=== PATIENT | female | born 1945 | race Hispanic/Latino ===

== ENCOUNTER 2016-10-12 06:15 | Inpatient (IN) | payer MEDICARE, MEDICAID ==
[2016-10-12 06:22] VITALS: BMI 25.8
--- NOTE | 2016-10-12 06:37 | ED PDOC ---
Arrival/HPI - General Chief Complaint: Shortness Of Breath Time Seen by Provider: 10/12/16 06:29 Historian: Patient - History of Present Illness Narrative History of Present Illness (Text): 10/12/16 06:36 Mallorie Turner is a 71 year old female former smoker, whose past medical history includes colon cancer, CHF, CAD with multiplestents, triple bypass surgery, NIDDM, hypertension, atrial fibrillation, and hyperlipidemia, who presents to the ED complaining of shortness of breath since last night. Patient states shortness of breath progressively worsened throughout the night and denies any relief with inhaler or home nebulizer treatments. Patient also reports associated chest tightness. Patient denies any fever, chills, nausea, vomiting, diarrhea, urinary symptoms, back pain, neck pain, headache, dizziness , or any other complaints. Patient regularly takes Warfarin and Digoxin. Time/Duration: Other (tonight) Symptom Onset: Gradual Symptom Course: Worsening Quality: Tightness Activities at Onset: Rest, Light Modifying Factors (Text): No relief with inhaler/home nebulizer treatments Context: Home Past Medical History - Provider Review Nursing Documentation Reviewed: Yes - Infectious Disease Hx of Infectious Diseases: None - Cardiac Hx Cardiac Disorders: Yes (triple bypass 2002) Hx Hypertension: Yes - Pulmonary Hx Asthma: Yes Hx Chronic Obstructive Pulmonary Disease (COPD): Yes - Neurological Hx Neurological Disorder: No - HEENT Hx HEENT Disorder: Yes (eyeglassees) Hx Blind: No Other/Comment: ORBITAL TUMOR TO RIGHT EYE - Renal Hx Renal Disorder: Yes (RENAL CYST) - Endocrine/Metabolic Hx Diabetes Mellitus Type 2: Yes - Hematological/Oncological Hx Blood Disorders: No - Integumentary Hx Dermatological Disorder: No - Musculoskeletal/Rheumatological Hx Musculoskeletal Disorders: No Hx Falls: Yes - Gastrointestinal Hx Gastrointestinal Disorders: Yes (VENTRAL HERNIA,BOWEL OBSTRUCTION,PROLAPSE OF ILEOSTOMY) Hx Ileostomy: Yes (reversal 2009) - Genitourinary/Gynecological Hx Genitourinary Disorders: No - Psychiatric Hx Psychophysiologic Disorder: Yes Hx Depression: Yes Hx Substance Use: No Other/Comment: Insomnia - Surgical History Other/Comment: Ileostomy with reversal. Open heart surgery - Anesthesia Hx Anesthesia: Yes Hx Anesthesia Reactions: No - Suicidal Assessment Feels Threatened In Home Enviroment: No Family/Social History - Physician Review Nursing Documentation Reviewed: Yes Family/Social History: No Known Family HX Smoking Status: Former Smoker Hx Alcohol Use: No Hx Substance Use: No Allergies/Home Meds Allergies/Adverse Reactions: Allergies clopidogrel bisulfate [From Plavix] Allergy (Verified 08/26/16 09:29) RASH Home Medications: Home Meds Medication Instructions Recorded Confirmed GlipiZIDE [Glipizide] 10 mg PO DAILY 03/22/14 10/12/16 Nortriptyline HCl [Nortriptyline] 10 mg PO TID 03/22/14 10/12/16 Warfarin [Coumadin] 4 mg PO DAILY 03/22/14 10/12/16 Aspirin [Ecotrin] 81 mg PO DAILY 10/20/15 10/12/16 Digoxin [Lanoxin] 0.25 mg PO DAILY 10/20/15 10/12/16 Diltiazem HCl [Cardizem Cd] 180 mg PO DAILY 10/20/15 10/12/16 Nitroglycerin [Nitrostat] 0.4 mg SL PRN PRN 10/20/15 10/12/16 traMADol [Ultram] 50 mg PO DAILY PRN 10/20/15 10/12/16 Atorvastatin [Lipitor] 20 mg PO DAILY 08/21/16 10/12/16 Bumetanide [Bumex] 0.5 mg PO DAILY 08/21/16 10/12/16 Carvedilol [Coreg] 12.5 mg PO BID 08/21/16 10/12/16 Levocetirizine Dihydrochloride 5 mg PO DAILY 08/21/16 10/12/16 [Xyzal] Linagliptin [Tradjenta] 5 mg PO DAILY 08/21/16 10/12/16 Lisinopril [Zestril] 20 mg PO DAILY 08/21/16 10/12/16 Sertraline [Zoloft] 50 mg PO HS 08/21/16 10/12/16 Umeclidinium Crooks [Incruse 62.5 mcg IH DAILY 08/21/16 10/12/16 Ellipta] Prasugrel [Effient] 10 mg PO DAILY 08/28/16 10/12/16 Biotin [Biotin] 1 tab PO DAILY 10/12/16 10/12/16 Fluticasone/Salmeterol [Advair 1 puff IH BID 10/12/16 10/12/16 250-50 Diskus] Insulin Detemir [Levemir] 12 units SQ DAILY 10/12/16 10/12/16 Review of Systems - Physician Review All systems were reviewed & negative as marked: Yes - Review of Systems Constitutional: Normal. absent: Fevers Eyes: Normal ENT: Normal Respiratory: SOB. absent: Cough Cardiovascular: Chest Pain Gastrointestinal: Normal. absent: Abdominal Pain, Diarrhea, Nausea, Vomiting Genitourinary Female: Normal. absent: Dysuria, Frequency, Hematuria, Urine Output Changes Musculoskeletal: Normal. absent: Back Pain, Neck Pain Skin: Normal. absent: Rash Neurological: Normal. absent: Headache, Dizziness Endocrine: Normal Hemo/Lymphatic: Normal Psychiatric: Normal Physical Exam Vital Signs Reviewed: Yes Vital Signs Temp Pulse Resp BP Pulse Ox 10/12/16 06:25 97.7 F 79 20 129/69 95 Temperature: Afebrile Blood Pressure: Normal Pulse: Regular Respiratory Rate: Normal Appearance: Positive for: Well-Appearing, Non-Toxic, Comfortable Pain Distress: None Mental Status: Positive for: Alert and Oriented X 3 - Systems Exam Head: Present: Atraumatic, Normocephalic Pupils: Present: PERRL Extroacular Muscles: Present: EOMI Conjunctiva: Present: Normal Mouth: Present: Moist Mucous Membranes Neck: Present: Normal Range of Motion Respiratory/Chest: Present: Rhonchi (Few scattered rhonchi). No: Respiratory Distress, Accessory Muscle Use Cardiovascular: Present: Regular Rate and Rhythm, Normal S1, S2. No: Murmurs Abdomen: Present: Normal Bowel Sounds. No: Tenderness, Distention, Peritoneal Signs Back: Present: Normal Inspection Upper Extremity: Present: Normal Inspection. No: Cyanosis, Edema Lower Extremity: Present: Normal Inspection. No: Edema Neurological: Present: GCS=15, CN II-XII Intact, Speech Normal Skin: Present: Warm, Dry, Normal Color. No: Rashes Psychiatric: Present: Alert, Oriented x 3, Normal Insight, Normal Concentration Medical Decision Making ED Course and Treatment: 10/12/16 06:36 Impression: 71 year old female complaining of worsening shortness of breath and chest tightness Differential Diagnosis include but are not limited to: CHF vs. ACS vs. pneumonia vs. COPD Plan: -- EKG -- Chest X-ray -- Labs, cardiac enzymes, BNP, Digoxin -- Reassess and disposition Prior Visits: Notes and results from previous visits were reviewed. Progress Notes: Reviewed EKG, sinus rhythm at 123 bpm. 1st degree AV block. Frequent PVCs. LBBB. Non-specific ST/T wave changes. Unchanged from previous EKG on 08/26/2016. - RAD Interpretation Radiology Orders: 10/12/16 06:41 CHEST PORTABLE [RAD] Stat - Transfer of Care Patient signed out to Dr:: Kortney Pending Labs:: Labs/xray/reassess/final disposition - Scribe Statement The provider has reviewed the documentation as recorded by the Scribe Geovanna Banks All medical record entries made by the Scribe were at my direction and personally dictated by me. I have reviewed the chart and agree that the record accurately reflects my personal performance of the history, physical exam, medical decision making, and the department course for this patient. I have also personally directed, reviewed, and agree with the discharge instructions and disposition. Disposition/Present on Arrival - Present on Arrival Any Indicators Present on Arrival: No History of DVT/PE: No History of Uncontrolled Diabetes: Yes Urinary Catheter: No History of Decub. Ulcer: No History Surgical Site Infection Following: None - Disposition Have Diagnosis and Disposition been Completed?: No Diagnosis: Chest pain, Dyspnea Disposition Time: 07:00 Condition: STABLE Discharge Instructions (ExitCare): Chest Pain (ED) Referrals: Maciel Nieto Jr., MD [Primary Care Provider] - Follow up with primary
[2016-10-12 07:23] LABS: HEMATOCRIT 32.4 % (36.0-48.0); MEAN CELL VOLUME 92.8 fL (80.0-105.0); MEAN CORPUSCULAR HEMOGLOBIN 31.5 pg (25.0-35.0); MEAN PLATELET VOLUME 8.9 fl (7.0-11.0); RED CELL DISTRIBUTION WIDTH 17.8 % (11.5-14.5); WHITE BLOOD COUNT 12.3 10^3/ul (4.5-11.0)
[2016-10-12 07:34] LABS: INR 3.07 (0.93-1.08); PARTIAL THROMBOPLASTIN TIME 43.4 Seconds (23.7-30.8)
[2016-10-12 08:38] LABS: ALB/GLOB RATIO 1.3 (1.1-1.8); ALKALINE PHOSPHATASE 121 U/L (38-133); ALT/SGPT 31 U/L (7-56); AST/SGOT 26 U/L (15-39); BLOOD UREA NITROGEN 17 mg/dL (7-21); CALCIUM 10.1 mg/dL (8.4-10.5); CARBON DIOXIDE 25 mmol/L (21-33); CHLORIDE 101 mmol/L (98-107); GFR AFRICAN-AMERICAN > 60; GLUCOSE,RANDOM 154 mg/dL (70-110); POTASSIUM 3.9 mmol/L (3.6-5.0); SODIUM 138 mmol/L (132-148); TOTAL PROTEIN 7.3 g/dL (5.8-8.3)
[2016-10-12 08:51] LABS: TROPONIN I 0.03 ng/mL
[2016-10-12] MEDS ORDERED: Albuterol-Ipratrop 3 mg / 0.5 (3 ml) UD IH PRN (09:35)
--- NOTE | 2016-10-12 09:43 | ED PDOC ---
Physical Exam Vital Signs Temp Pulse Resp BP Pulse Ox 10/12/16 09:35 82 16 147/73 96 10/12/16 07:19 87 17 134/94 H 97 10/12/16 07:05 20 10/12/16 06:25 97.7 F 79 20 129/69 95 Medical Decision Making ED Course and Treatment: 10/12/16 07:00 Patient signed out to me by Dr. Diaz. Follow up labs, chest x-ray, reeval , and disposition. Patient is stable. 10/12/16 09:32 Dr Lebron accepts patient into her service, requests Dr. Gabriel for pulmonolgy and Dr Kemp for cardiology. Patient was given Lasix IV and Aspirin. She will be admitted for CP and CHF. - Lab Interpretations Lab Results: 10/12/16 07:00 10/12/16 08:08 Lab Results 10/12/16 08:08: Sodium 138, Potassium 3.9, Chloride 101, Carbon Dioxide 25, Anion Gap 16, BUN 17, Creatinine 0.9, Est GFR ( Amer) > 60, Est GFR (Non- Af Amer) > 60, Random Glucose 154 H, Calcium 10.1, Total Bilirubin 2.0 H, AST 26 , ALT 31, Alkaline Phosphatase 121, Lactate Dehydrogenase 294 L, Total Creatine Kinase < 20 L, Troponin I 0.03 D, NT-Pro-B Natriuret Pep 3200 H, Total Protein 7.3, Albumin 4.0, Globulin 3.2, Albumin/Globulin Ratio 1.3 10/12/16 07:30: PT 33.2 H*, INR 3.07 H, APTT 43.4 H 10/12/16 07:00: WBC 12.3 H D, RBC 3.49 L, Hgb 11.0 L, Hct 32.4 L, MCV 92.8, MCH 31.5, MCHC 34.0, RDW 17.8 H, Plt Count 325, MPV 8.9 10/12/16 06:42: Digoxin 1.7 - RAD Interpretation Radiology Orders: 10/12/16 06:41 CHEST PORTABLE [RAD] Stat - Medication Orders Current Medication Orders: Albuterol/Ipratropium (Duoneb 3 Mg/0.5 Mg (3 Ml) Ud) 3 ml IH Q3H PRN PRN Reason: Shortness of Breath Arformoterol Tartrate (Brovana) 15 mcg IH [id number] [facility] Aspirin (Ecotrin) 81 mg PO DAILY [facility] Atorvastatin Calcium (Lipitor) 20 mg PO DAILY [facility] Budesonide (Pulmicort Respules) 0.5 mg IH [id number] [facility] Bumetanide (Bumex) 0.5 mg PO DAILY [facility] Carvedilol (Coreg) 12.5 mg PO BID [facility] Digoxin (Lanoxin) 0.25 mg PO DAILY [facility] Diltiazem HCl (Cardizem Cd) 180 mg PO DAILY [facility] Glipizide (Glucotrol) 10 mg PO DAILY [facility] Insulin Detemir (Levemir) 12 unit SC DAILY [facility] Insulin Human Regular (Humulin R Low) 0 units SC ACHS [facility] PRN Reason: Protocol Lisinopril (Zestril) 20 mg PO DAILY [facility] Nitroglycerin (Nitrostat Sl Tab) 0.4 mg SL PRN PRN PRN Reason: CHEST PAIN Non-Formulary Medication (Levocetirizine Dihydrochloride [Xyzal]) 5 mg PO DAILY [facility] Non-Formulary Medication (Linagliptin [Tradjenta]) 5 mg PO DAILY [facility] Ondansetron HCl (Zofran Inj) 4 mg IVP Q4H PRN PRN Reason: Nausea/Vomiting Prasugrel (Effient) 10 mg PO DAILY [facility] Sertraline HCl (Zoloft) 50 mg PO HS [facility] Discontinued Medications Aspirin (Aspirin) 325 mg PO STAT STA Stop: 10/12/16 08:54 Last Admin: 10/12/16 09:58 Dose: 325 mg Bumetanide (Bumex) 0.5 mg PO DAILY [facility] Furosemide (Lasix) 40 mg IVP STAT STA Stop: 10/12/16 08:54 Last Admin: 10/12/16 09:58 Dose: 40 mg Fluticasone/Salmeterol (Advair Diskus 250/50) 1 puff IH BID [facility] Last Admin: 10/12/16 12:48 Dose: - Scribe Statement The provider has reviewed the documentation as recorded by the Yaniraibcristian Carpenter Provider Attestation: All medical record entries made by the Scribe were at my direction and personally dictated by me. I have reviewed the chart and agree that the record accurately reflects my personal performance of the history, physical exam, medical decision making, and the department course for this patient. I have also personally directed, reviewed, and agree with the discharge instructions and disposition. Disposition/Present on Arrival - Present on Arrival Any Indicators Present on Arrival: No History of DVT/PE: No History of Uncontrolled Diabetes: Yes Urinary Catheter: No History of Decub. Ulcer: No History Surgical Site Infection Following: None - Disposition Have Diagnosis and Disposition been Completed?: Yes Diagnosis: Dyspnea, Chest pain, Congestive heart failure Disposition: HOSPITALIZED Disposition Time: 11:40 Patient Plan: Observation Patient Problems: Current Active Problems Problem Status Onset Chest pain Acute Dyspnea Acute Condition: FAIR
[2016-10-12] MEDS ORDERED: Fluticasone-Salmeterol 250-50mcg Diskus IH SCH (10:15)
--- NOTE | 2016-10-12 13:30 | CARD ---
APPROVED REPORT EKG Measurement Heart [id number] <Conclusion> Sinus rhythm with 1st degree AV block with frequent premature ventricular complexes Left bundle branch block Abnormal ECG
[2016-10-12] MEDS: Milrinone 20mg/100ml D5W 100 ML IV PRN (13:35)
--- NOTE | 2016-10-12 15:25 | CON ---
DATE: 10/12/2016 REQUESTING PHYSICIAN: Dr. Lebron. REASON FOR CONSULTATION: Chest pain, dyspnea and dizziness. HISTORY OF PRESENT ILLNESS: This is a 71-year-old woman well known to us with a complex past medical history who presented complaining of worsening dyspnea, chest pain and dizziness. She denied any de fibrillator firings. She has known coronary artery disease and underwent coronary bypass surgery a n umber of years ago. Subsequently, all of her grafts were occluded and she has undergone several inte rventions of her [place] vessels in the recent past. She has had a prior LAD stent performed as well as stenting of her RCA. She was admitted last month with unstable angina and found to have significa nt restenosis of her ostial RCA stent. She underwent repeat intervention on this vessel. She also h as a history of paroxysmal atrial fibrillation, hypertension, diabetes, severe LV dysfunction, left b undle branch block, prior colon cancer resection, prior bowel obstruction, COPD and moderate mitral r egurgitation. CURRENT MEDICATIONS: Include aspirin, Brovana, Bumex 0.5 mg daily, diltiazem CD 180 mg daily, carved ilol 12.5 mg b.i.d., DuoNeb inhaler, Effient 10 mg daily, glipizide 10 mg daily, digoxin 0.25 mg alexis y, insulin coverage, Xyzal, Tradjenta, Lipitor 20 mg daily, Pulmicort inhaler, Zestril 20 mg daily, a nd Zoloft 50 mg at bedtime. ALLERGIES: SHE HAD A REACTION TO PLAVIX IN THE PAST WITH A RASH. SOCIAL HISTORY: She does not smoke or drink. FAMILY HISTORY: Both parents are from age-related illness. REVIEW OF SYSTEMS: A 10 point review of systems is otherwise unremarkable. PHYSICAL EXAMINATION: GENERAL: She is a chronically ill-appearing middle-aged woman. VITAL SIGNS: Her blood pressure is 140/70 with a pulse of 80 and respirations are 16. She is afebri le. HEENT: Normocephalic, atraumatic. NECK: No JVD noted. Carotid upstrokes are diminished. CHEST: Bilateral scattered rhonchi are heard. No rales present. HEART: PMI displaced laterally with soft tones noted. Systolic murmur is present at lower left ster nal border as well as at the apex. ABDOMEN: Soft, protuberant. Bowel sounds are present. EXTREMITIES: No clubbing, cyanosis or edema. SKIN: Warm and dry. PSYCHIATRIC: Normal mood and affect. NEUROLOGIC: Alert and oriented x 3. No gross motor or sensory deficits appreciable. DIAGNOSTIC DATA: Electrocardiogram reveals sinus rhythm with a left bundle branch block pattern. Ch est x-ray reveals enlarged cardiac silhouette, defibrillator system in place, mild pulmonary vascular congestion. LABORATORY DATA: White count 12.3, hemoglobin and hematocrit 11.0 and 32.4 with a platelet count of 325,000. INR is 3.07, potassium 3.9, BUN and creatinine 17 and 0.9. CK is less than 20, troponin 0. 03. BNP is 3200. Digoxin level is 1.7. IMPRESSION: 1. Decompensated congestive heart failure, acute on chronic, secondary to low output. 2. Known coronary artery disease, status post prior bypass surgery and multivessel percutaneous zoran nary intervention with recent percutaneous coronary intervention of right coronary artery in-stent re stenosis. 3. Recent chest pain concerning given complex coronary disease, but no evidence of active cardiac in jury at present. 4. Rest of problems as noted. RECOMMENDATIONS: The patient will be admitted to telemetry. IV diuretic therapy will be initiated. Intravenous milrinone will be added as well. Old records will be reviewed. Follow up enzymes and e lectrocardiograms will be obtained. Further recommendations will be made based upon her clinical cou rse and response to above interventions. Thank you for this consultation. Dwight Patiño MD cc: [id number] TT: 10/12/2016 15:24:17 Confirmation # [id number] Dictation # [id number] chas
[2016-10-12] MEDS: Insulin Reg-LOW-Coverage SC SCH ×2 (17:01→22:00)
--- NOTE | 2016-10-12 17:42 | RAD ---
HISTORY: sob COMPARISON: 08/21/2016. The the FINDINGS: LUNGS: Mild central pulmonary vascular congestion with questionable minimal lower lobe alveolar-type infiltrates and/or atelectasis with small bilateral effusions. . PLEURA: As above. No pneumothorax apparent. CARDIOVASCULAR: Cardiomegaly. Sternotomy wires CABG clips and bipolar pacemaker/ defibrillator unchanged OSSEOUS STRUCTURES: No significant abnormalities. VISUALIZED UPPER ABDOMEN: Normal. OTHER FINDINGS: None. IMPRESSION: Cardiomegaly. Mild central pulmonary vascular congestion with questionable minimal lower lobe alveolar-type infiltrates and/or atelectasis with small bilateral effusions. .
--- NOTE | 2016-10-12 19:34 | HP ---
CHIEF COMPLAINT: Shortness of breath and not feeling very well. HISTORY OF PRESENT ILLNESS: The patient is a 71-year-old lady with history of smoking, with past medical history of colon cancer, congestive heart failure, coronary artery disease, triple bypass surgery, noninsulin dependent diabetes mellitus, hypertension, atrial fibrillation, obesity, hypercholesterolemia, came to the Emergency Room complaining of shortness of breath since last night. The patient states shortness of breath progressively worsened throughout. Denies any relief with inhalers or home nebulizer treatment. The patient also reports associated with chest tightness. The patient denies any fever, chills, nausea, vomiting, diarrhea or urinary symptoms, back pain, neck pain, hematuria or hematochezia. headache, dizziness. Normally patient takes warfarin and digoxin. When she is at rest, she has less shortness of breath; on activity, she is getting more, no relief with inhalers or home nebulizer treatment. PAST MEDICAL HISTORY: As above. Triple bypass in 2002, hypertension, COPD, renal cysts, diabetes type 2, ventral hernia, bowel obstruction, prolapse of the ileostomy, reversal of ileostomy in 2009, depression, history of open heart surgery. FAMILY HISTORY: Father and mother noncontributory. HABITS: Former smoker. No drugs. No ethanol. ALLERGIES: ALLERGIC WITH PLAVIX. HOME MEDICATIONS: Reviewed by me, glipizide, Coumadin, Ecotrin, Lanoxin, Cardizem, Nitrostat, Lipitor, Bumex, Coreg, Tradjenta, Zestril, Zoloft, Effient. REVIEW OF SYSTEMS: The patient seen and examined on the bedside in the room, feeling comfortable, but still having shortness of breath and sometimes chest tightness. No nausea, vomiting, or diarrhea. No fever. No abdominal pain or diarrhea. No dysuria, frequency, hematuria. No back pain or neck pain. No rashes. No headache, no dizziness. PHYSICAL EXAMINATION: VITAL SIGNS: Temperature 97.7, pulse 79, respiratory rate 20, blood pressure 120/69, and pulse oximetry 95. HEENT: Head normocephalic, atraumatic. Eyes: PERRLA, extraocular muscles intact. Conjunctivae are clear. Nose patent. Mucous membranes moist. NECK: Supple. No carotid bruit, JVD or thyromegaly. CHEST: Bilaterally symmetrical. HEART: S1, S2 positive. LUNGS: Clear to auscultation. ABDOMEN: Soft. Bowel sounds positive. No organomegaly. EXTREMITIES: No edema, no cyanosis. NEUROLOGIC: The patient is awake, alert, moving all 4 extremities. No focal deficit. LABORATORY DATA: White blood cells 12.3, hemoglobin 11.0, hematocrit 32.4, and platelets 325. Sodium 138, potassium 3.8, BUN 17, creatinine 0.9, glucose 143 , random glucose 154. ASSESSMENT AND PLAN: The patient is a 71-year-old lady with uncontrolled diabetes mellitus, abnormal liver function test, congestive heart failure, BNP is high, leukocytosis, anemia, seen by the customer advocate, Dr. Dwight Patiño, the patient's customer advocate, Dr. Kemp. The patient has history of colon cancer , has decompensated congestive heart failure with acute on chronic secondary to low input. Known coronary artery disease, status post prior bypass surgery and multivessel percutaneous coronary intervention with a recent percutaneous coronary intervention with right coronary artery instent restenosis, recent chest pain, concerning given complex coronary artery disease. No evidence of active cardiac injury at present IV diuretic therapy, intravenous milrinone started. Reviewed old record. Reviewed Dr. Dwight Patiño's consult. The patient has history of chronic obstructive pulmonary disease, non-insulin dependent diabetes mellitus, atrial fibrillation. Cardiology consult called. Pulmonary consult called. GI and deep venous thrombosis prophylaxis. Repeat labs. We will follow up. Tanisha Lebron MD cc: [id number] TT: 10/12/2016 19:33:54 jn MTDD
[2016-10-12] MEDS: Arformoterol 15 mcg/2 ml Inh Sol IH SCH (20:40)
[2016-10-12] MEDS: Budesonide 0.5 mg/2 ml Inhal Susp UD IH SCH (20:40)
--- NOTE | 2016-10-12 22:29 | CON ---
DATE: 10/12/2016 REFERRING PHYSICIAN: Dr. Lebron. REASON FOR CONSULT: Shortness of breath, orthopnea, leg swelling. HISTORY OF PRESENT ILLNESS: This is a 71-year-old female with extensive cardiac history with severe cardiomyopathy, coronary artery disease, history of coronary bypass surgery, history of multiple zoran nary stents and angioplasty, paroxysmal atrial fibrillation, hypertension, diabetes, history of colon cancer with bowel obstruction and resection, chronic obstructive lung disease, seen by cardiology an d placed on home dobutamine. Feels a little better. Still has a cough and shortness of breath. Adm its to have loud snoring at nighttime, daytime sleepy and tired. ALLERGIES: PLAVIX WITH RASH. SOCIAL HISTORY: Stopped smoking many years ago. Denied any alcohol use. FAMILY HISTORY: No cardiopulmonary disease reported. MEDICATIONS: She is on Brovana 15 mcg inhaled twice a day, Cardizem-CD 180 mg daily, Coreg 12.5 mg t wice a day, DuoNeb q.3 hours p.r.n., Ecotrin 81 mg daily, Effient 10 mg daily, glipizide 10 mg daily, insulin coverage, digoxin 0.125 mg daily, Lasix 40 mg twice a day, Levemir 12 units subQ daily, Xyza l 5 mg daily, Tradjenta 5 mg daily, Lipitor 20 mg daily, Nitrostat p.r.n. basis, on IV Primacor, Pulm icort inhaled twice a day, Zestril 20 mg daily, Zofran 4 mg q.4 hours p.r.n., Zoloft 150 mg at bedtim e. REVIEW OF SYSTEMS: No headache, no rhinitis. Gets short of breath. Orthopnea and chest pain on adm ission. Admits to have snoring, daytime sleepy and tired. No nausea, no vomiting, no diarrhea. No leg pain or leg swelling. PHYSICAL EXAMINATION: GENERAL: Lying in bed in mild distress secondary to short of breath. VITAL SIGNS: Temp is 98, heart rate is 80, respiratory rate is 18, blood pressure 116/63, pulse ox 9 4% on 2 liter nasal cannula. HEENT: Moist mucous membranes. Crowded airway. Mallampati score is 4. NECK: Supple. No JVD. LUNGS: Has crackles at the bases with a few scattered rhonchi. HEART: Irregularly irregular. ABDOMEN: Soft, nontender. No organomegaly. EXTREMITIES: There is trace edema. NEUROLOGIC: Awake, alert, follows simple commands. LABORATORY DATA: Shows hemoglobin 11.0, hematocrit 32.4, WBC 12.3, platelet count is 325. INR 3.07, PTT is 44. Sodium 138, potassium 3.9, chloride 101, bicarbonate 25, BUN 17, creatinine 0.9, glucose 143, calcium 10.1, total bili 2.0, AST 26, ALT 31, alkaline phosphatase is 121. LDH is 294. Tropon in is 0.03. ProBNP 3200. Albumin is 4.0, globulin 3.2. Toxicology: Digoxin is 1.7. Had a chest x -ray done in the ER that shows pulmonary vascular congestion with minimal lower lobe alveolar infiltr ate and atelectasis, mild bilateral pleural effusion. EKG shows sinus rhythm with first AV block and frequent premature ventricular complexes. IMPRESSION AND PLAN: Cardiomyopathy with heart failure, extensive coronary artery disease, history o f coronary bypass surgery and coronary stent, hypertension, paroxysmal atrial fibrillation, diabetes, seasonal allergies, may have sleep apnea syndrome. Agree with Dr. Lebron and Dr. Patiño with the present management. Continue milrinone. Keep head at 45 degrees. Supplement with oxygen 2 liters p er nasal cannula. Sleep apnea precautions. Continue inhaled bronchodilators. Will need outpatient PFTs. Will also need outpatient attended sleep study to sleep apnea causes of cardiomyopathy. Of course, the main reason is significant coronary artery disease. Continue anticoagulation C oumadin today. INR in the morning. Thank you and will follow with you. Rosina Gabriel MD cc: [id number] TT: 10/12/2016 22:28:55 Confirmation # [id number] Dictation # [id number] dn
[2016-10-13] MEDS: Milrinone 20mg/100ml D5W 100 ML IV PRN (06:21)
[2016-10-13] MEDS: Insulin Reg-LOW-Coverage SC SCH ×4 (07:38→21:38)
[2016-10-13] MEDS: Arformoterol 15 mcg/2 ml Inh Sol IH SCH ×2 (07:44→20:08)
[2016-10-13] MEDS: Budesonide 0.5 mg/2 ml Inhal Susp UD IH SCH ×2 (07:44→20:08)
[2016-10-13 07:50] LABS: HEMATOCRIT 33.8 % (36.0-48.0); MEAN CELL VOLUME 93.4 fL (80.0-105.0); MEAN CORPUSCULAR HEMOGLOBIN 31.8 pg (25.0-35.0); MEAN PLATELET VOLUME 8.9 fl (7.0-11.0); RED CELL DISTRIBUTION WIDTH 17.7 % (11.5-14.5); WHITE BLOOD COUNT 8.7 10^3/ul (4.5-11.0)
[2016-10-13 07:57] LABS: INR 2.26 (0.93-1.08)
[2016-10-13 08:07] LABS: ALB/GLOB RATIO 1.2 (1.1-1.8); BILIRUBIN,TOTAL 1.4 mg/dL (0.2-1.3); CALCIUM 9.2 mg/dL (8.4-10.5); POTASSIUM 3.8 mmol/L (3.6-5.0); TOTAL PROTEIN 7.2 g/dL (5.8-8.3)
--- NOTE | 2016-10-13 09:11 | PN ---
DATE: 10/13/2016 SUBJECTIVE: The patient is seen lying in bed, on telemetry. She states she feels significantly bett er. Her dyspnea is improved and her chest heaviness is also improved. She is currently tolerating m ilrinone infusion. CURRENT MEDICATIONS: Include Brovana, diltiazem CD 180 mg daily, carvedilol 12.5 mg b.i.d., DuoNeb i nhaler, Ecotrin, Effient 10 mg daily, Glucotrol 10 mg daily, insulin coverage, digoxin 0.125 mg daily , Lasix 40 mg IV q. 12 hours, Xyzal 5 mg daily, Tradjenta 5 mg daily, Lipitor 20 mg daily, Pulmicort inhaler, Zestril 20 mg daily, and Zoloft 50 mg at bedtime. OBJECTIVE: GENERAL: She is a middle-aged woman who appears comfortable at the present time. VITAL SIGNS: Blood pressure is 126/50 with a pulse of 76, in sinus, respirations are 16. She is afe brile. HEENT: No JVD. CHEST: Bibasilar rales. HEART: PMI displaced laterally with soft tones noted. Systolic murmur is present at lower left ster nal border and apex. ABDOMEN: Soft, nontender, normoactive bowel sounds. EXTREMITIES: 1+ leg edema. DIAGNOSTIC DATA: Morning labs are pending. IMPRESSION: 1. Decompensated congestive heart failure, acute on chronic, clinically improved. 2. Known coronary artery disease, status post remote bypass surgery with known occluded grafts and m ultivessel percutaneous coronary intervention including recent percutaneous coronary intervention of ostial right coronary artery in-stent restenosis. 3. Recent chest pain, uncertain if this is due to heart failure or recurrent cardiac ischemia. 4. Status post implantable cardioverter-defibrillator implant. 5. Rest of problems as noted. RECOMMENDATIONS: Milrinone will be continued for this time. IV diuretics, will be continued as well . Followup blood work is pending and will be reviewed. Further recommendations will be made based u suzi her clinical course and response to the above therapy. We will follow along as needed. Dwight Patiño MD cc: [id number] TT: 10/13/2016 09:10:26 Confirmation # [id number] Dictation # [id number] en
[2016-10-13] MEDS ORDERED: Digoxin 125 mcg (0.125 mg) Tab PO SCH (10:00)
[2016-10-13] MEDS ORDERED: Digoxin 250 mcg (0.25 mg) Tab PO SCH (10:00)
[2016-10-13] MEDS: Non Formulary Medication (Levocetirizine Dihydrochloride [Xyzal] 5 MG) PO SCH (10:16)
[2016-10-13] MEDS: Non Formulary Medication (Linagliptin [Tradjenta] 5 MG) PO SCH (10:17)
[2016-10-13] MEDS: Insulin Detemir 100 units/ml Vial (Levemir) SC SCH (10:30)
[2016-10-13 10:37] VITALS: PULSE 91
[2016-10-13] MEDS: diltiaZEM 180 mg/24 Hours CD Cap PO SCH (10:51)
--- NOTE | 2016-10-13 16:05 | PN ---
DATE: 10/13/2016 The patient is a 71-year-old female. The patient was seen and examined on the bedside in the telemetry. No fever, no chills. No nausea, vomiting, diarrhea. No hematuria, no hematochezia. No headache, no dizziness, but still having pressure in the left side. Seen by the biomedical equipment specialist. Has no swelling of the legs. PHYSICAL EXAMINATION: VITAL SIGNS: Temperature 97.7, pulse 90, blood pressure 120/44, respiratory rate 20. HEENT: Head normocephalic, atraumatic. Eyes, PERRLA. Extraocular intact. Conjunctivae clear. Nose patent. Mucous membranes moist. NECK: Supple. No carotid bruit, no JVD, no thyromegaly. CHEST: Bilaterally symmetrical. HEART: S1, S2 positive. LUNGS: Clear to auscultation. ABDOMEN: Soft. Bowel sounds positive. No organomegaly. EXTREMITIES: No edema, no cyanosis. NEUROLOGIC: The patient is awake, alert. Moving all 4 extremities. No focal deficit. MEDICATIONS: Brovana, Cardizem, Coreg, aspirin, Effient, Glucotrol, insulin, Lovenox. LABORATORIES: White blood cells 8.7, hemoglobin 11.5, hematocrit 33.8, platelets 287. Sodium 139, potassium 3.8, BUN 21, creatinine 1.1, glucose 112. Total bilirubin 1.4. ASSESSMENT AND PLAN: The patient is a 71-year-old female with diabetes mellitus , abnormal liver function test, exacerbation of congestive heart failure, history of leukocytosis, improved, anemia, digoxin level is within therapeutic range. Seen by Dr. Dwight Patiño, biomedical equipment specialist. Known coronary artery disease , status post remote bypass surgery with known occluded graft, multivessel percutaneous coronary intervention including recent percutaneous coronary intervention of ostial right coronary artery and right stenosis. Came recently with chest pain. Due to heart failure and/or recurrent cardiac ischemia, status post implantable cardioverter-defibrillator implant. The patient was started on milrinone with the continuity for this time, IV diuretics. Seen by Dr. Gabriel, washer off/critical care. The patient has history of pulmonary embolism, cardiomyopathy, paroxysmal atrial fibrillation, seasonal allergies, sleep apnea syndrome. Head elevated 45 degrees. Supplement with oxygen 2 liters with nasal cannula. Sleep apnea precautions. Continue inhaled bronchodilators. Will need outpatient pulmonary function test. Gastrointestinal and deep venous thrombosis prophylaxis. Continue aspirin, diltiazem, carvedilol, albuterol, Effient, digoxin, Lasix, insulin. Repeat labs. Will follow up. Tanisha Lebron MD cc: [id number] TT: 10/13/2016 16:04:59 Confirmation # [id number] Dictation # [id number] en MTDD
--- NOTE | 2016-10-13 19:47 | PN ---
DATE: 10/13/2016 REFERRING PHYSICIAN: Dr. Lebron. SUBJECTIVE: She is lying in the bed, head at 45 degrees, feels better, decreased shortness of breath and cough. No nausea, no vomiting, no diarrhea. No leg pain or leg swelling. OBJECTIVE: GENERAL: No acute distress. VITAL SIGNS: Temp is 98, heart rate is 80, respiratory rate is 18, blood pressure 102/52, pulse ox 9 3% on nasal cannula. HEENT: Moist mucous membranes. Crowded airway. Mallampati score is 4. NECK: Supple. No JVD. LUNGS: Has a fair airflow with few rhonchi, few crackles at the bases. HEART: S1, S2. ABDOMEN: Soft, nontender. No organomegaly. EXTREMITIES: Not much edema. NEUROLOGIC: Awake, alert, follows simple commands. MEDICATIONS: Reviewed, shows Brovana 15 mcg inhaled twice a day, Cardizem-CD 180 mg daily, Coreg 12. 5 mg twice a day, q. 3 hours p.r.n., Ecotrin 81 mg daily, Effient 10 mg daily, glipizide 10 mg daily, insulin coverage, digoxin 0.125 mg daily, Lasix 40 mg q. 12 hours, Levemir 12 units subQ daily , levocetirizine 5 mg daily, Tradjenta 5 mg daily, Lipitor 20 mg daily, Primacor IV drip, budesonide inhaler twice a day, Zestril 20 mg daily, Zofran p.r.n., Zoloft 50 mg at bedtime. LABORATORY DATA: Shows hemoglobin 11.5, hematocrit 33.8, WBC 8.7 and platelet is 284. INR is 2.26. Sodium 139, potassium 3.8, chloride 99, bicarbonate 28, BUN 21, creatinine 1.1, glucose 112, calcium 8.2, total bili 1.4, AST 27, ALT 36, alk phos is 122, albumin is 3.9. IMPRESSION AND PLAN: Cardiomyopathy with heart failure, extensive coronary artery disease, coronary artery bypass surgery, history of coronary stent, hypertension, paroxysmal atrial fibrillation, diabe nabeel, seasonal allergies, may have sleep apnea syndrome. From pulmonary point of view, doing okay. C ontinue dobutamine, diuretics, , bronchodilators, supplemental oxygen. Out of bed to chair. Ph ysical therapy. Follow up INR in the morning. Thank you and will follow with you. Rosina Gabriel MD cc: [phone] TT: 10/13/2016 19:47:09 Confirmation # [id number] Dictation # [id number] mn
[2016-10-14] MEDS: Milrinone 20mg/100ml D5W 100 ML IV PRN (03:58)
[2016-10-14 07:34] LABS: INR 1.8 (0.93-1.08)
[2016-10-14] MEDS: Insulin Reg-LOW-Coverage SC SCH ×4 (07:40→21:50)
[2016-10-14 07:44] LABS: ALB/GLOB RATIO 1.2 (1.1-1.8); BILIRUBIN,TOTAL 1.4 mg/dL (0.2-1.3); CALCIUM 9.4 mg/dL (8.4-10.5); POTASSIUM 3.7 mmol/L (3.6-5.0); TOTAL PROTEIN 7.4 g/dL (5.8-8.3)
[2016-10-14] MEDS: Arformoterol 15 mcg/2 ml Inh Sol IH SCH ×2 (08:10→20:13)
[2016-10-14] MEDS: Budesonide 0.5 mg/2 ml Inhal Susp UD IH SCH ×2 (08:10→20:13)
--- NOTE | 2016-10-14 08:53 | CP.PCM.PN ---
Subjective - Date & Time of Evaluation Date of Evaluation: 10/14/16 Time of Evaluation: 07:00 - Subjective Subjective: Stable on 2R. She feels better. No chest pain or SOB this AM. V/S noted. RSR PE: Lungs: rhonchi Cor.: S1S2 Abd.: soft Ext.: mild edema. Neuro.: alert Labs noted: Cr. = 2.3, INR= 1.8, Dig.= 1.7 Objective - Vital Signs/Intake and Output Vital Signs (last 24 hours): Temp Pulse Resp BP Pulse Ox 98.5 F 80 18 148/53 L 96 10/14/16 05:34 10/14/16 05:34 10/14/16 05:34 10/14/16 05:34 10/14/16 05:34 Intake and Output: 10/14/16 10/14/16 06:59 18:59 Intake Total 522 Balance 522 - Medications Medications: Current Medications Albuterol/Ipratropium (Duoneb 3 Mg/0.5 Mg (3 Ml) Ud) 3 ml IH Q3H PRN PRN Reason: Shortness of Breath Arformoterol Tartrate (Brovana) 15 mcg IH [id number] [facility] Last Admin: 10/14/16 08:10 Dose: 15 mcg Aspirin (Ecotrin) 81 mg PO DAILY [facility] Last Admin: 10/13/16 10:27 Dose: 81 mg Atorvastatin Calcium (Lipitor) 20 mg PO DAILY [facility] Last Admin: 10/13/16 10:30 Dose: 20 mg Budesonide (Pulmicort Respules) 0.5 mg IH [id number] [facility] Last Admin: 10/14/16 08:10 Dose: 0.5 mg Carvedilol (Coreg) 12.5 mg PO BID [facility] Last Admin: 10/13/16 17:37 Dose: 12.5 mg Digoxin (Lanoxin) 0.125 mg PO DAILY [facility] Last Admin: 10/13/16 10:27 Dose: 0.125 mg Diltiazem HCl (Cardizem Cd) 180 mg PO DAILY [facility] Last Admin: 10/13/16 10:51 Dose: 180 mg Furosemide (Lasix) 40 mg IVP Q12 [facility] Last Admin: 10/13/16 21:29 Dose: 40 mg Glipizide (Glucotrol) 10 mg PO DAILY [facility] Last Admin: 10/13/16 10:27 Dose: 10 mg Milrinone Lactate/Dextrose (Primacor 20mg/100ml D5w) 100 mls @ 4.627 mls/hr IV .[id number] PRN; Protocol; 0.2 MCG/KG/MIN PRN Reason: TITRATE PER MD ORDER Last Admin: 10/14/16 03:58 Dose: 0.2 mcg/kg/min, 4.627 mls/hr Insulin Detemir (Levemir) 12 unit SC DAILY [facility] Last Admin: 10/13/16 10:30 Dose: 12 unit Insulin Human Regular (Humulin R Low) 0 units SC ACHS [facility] PRN Reason: Protocol Last Admin: 10/14/16 07:40 Dose: Not Given Lisinopril (Zestril) 20 mg PO DAILY [facility] Last Admin: 10/13/16 10:30 Dose: 20 mg Nitroglycerin (Nitrostat Sl Tab) 0.4 mg SL PRN PRN PRN Reason: CHEST PAIN Non-Formulary Medication (Levocetirizine Dihydrochloride [Xyzal]) 5 mg PO DAILY [facility] Last Admin: 10/13/16 10:16 Dose: Not Given Non-Formulary Medication (Linagliptin [Tradjenta]) 5 mg PO DAILY [facility] Last Admin: 10/13/16 10:17 Dose: Not Given Ondansetron HCl (Zofran Inj) 4 mg IVP Q4H PRN PRN Reason: Nausea/Vomiting Prasugrel (Effient) 10 mg PO DAILY [facility] Last Admin: 10/13/16 10:27 Dose: 10 mg Sertraline HCl (Zoloft) 50 mg PO HS [facility] Last Admin: 10/13/16 21:29 Dose: 50 mg Warfarin Sodium (Coumadin) 2.5 mg PO 1800 [facility] PRN Reason: Protocol - Labs Labs: 10/13/16 07:40 10/14/16 07:00 PT 19.4 Seconds (9.9-11.8) H 10/14/16 07:00 INR 1.80 (0.93-1.08) H 10/14/16 07:00 APTT 43.4 Seconds (23.7-30.8) H 10/12/16 07:30 Assessment and Plan - Assessment and Plan (Free Text) Plan: Assessment: Dyspnea/CP/Dizziness CHF CAD/CABG/Sev. LVD PCIs/Recent ostial RCA stents PAF HBP Diabetes LBBB Colon resection Moderae MR Plan: Continue milrinone, probable home infusion D/C digoxin Hold Lasix today OOB Monitor: I/O, labs, renal function. tel., sats., etc Will follow.
[2016-10-14] MEDS: diltiaZEM 180 mg/24 Hours CD Cap PO SCH (10:59)
[2016-10-14] MEDS: Insulin Detemir 100 units/ml Vial (Levemir) SC SCH (10:59)
[2016-10-14] MEDS: Non Formulary Medication (Linagliptin [Tradjenta] 5 MG) PO SCH (11:00)
[2016-10-14] MEDS: Non Formulary Medication (Levocetirizine Dihydrochloride [Xyzal] 5 MG) PO SCH (11:00)
--- NOTE | 2016-10-14 20:05 | PN ---
DATE: 10/14/2016 REFERRING PHYSICIAN: Dr. Lebron. SUBJECTIVE: She is lying in the bed. Feels better. Decreased cough, decreased shortness of breath. No nausea, no vomiting, no diarrhea. No leg pain or leg swelling. On IV Primacor. OBJECTIVE: GENERAL: No acute distress. VITAL SIGNS: Temp is 98, heart rate is 75, respiratory rate is 20, blood pressure 99/49, pulse ox 96 % on 2 liters nasal cannula. HEENT: Moist mucous membrane. Crowded airway. Mallampati score is 4. NECK: Supple. No JVD. LUNGS: Have fair airflow with a few rhonchi. HEART: S1 and S2. ABDOMEN: Soft and nontender. No organomegaly. EXTREMITIES: No edema. NEUROLOGIC: Awake, alert, follows simple command. MEDICATIONS: She is on Brovana 15 mcg inhaled twice a day, Cardizem-CD 180 mg daily, Coreg 12.5 mg t wice a day, Coumadin 2.5 mg will be given today, DuoNeb q. 3 hours p.r.n., Ecotrin 81 mg daily, [place] nt 10 mg daily, glipizide 10 mg daily, insulin coverage, Lasix 40 mg q. 12 hours, Levemir 12 units elizabeth bQ daily, levocetirizine (which is Xyzal) 5 mg daily, Tradjenta 5 mg daily, Lipitor 20 mg daily, Nitr ostat on p.r.n. basis, Primacor IV, Pulmicort inhaled twice a day, Zestril 20 mg daily, Zofran p.r.n. , Zoloft 50 mg at bedtime. LABORATORY DATA: Reviewed. Today's INR 1.80. Sodium 136, potassium 3.7, chloride 96, bicarbonate 2 4, BUN 30, creatinine 2.3, glucose 94, calcium is 9.4. AST 39, ALT 32, and alkaline phosphatase is 1 28, albumin 4.0. IMPRESSION AND PLAN: Cardiomyopathy with heart failure, extensive coronary artery disease, coronary artery bypass surgery, history of coronary stent, hypertension, paroxysmal atrial fibrillation, diabe nabeel, seasonal allergies, may have sleep apnea syndrome. From pulmonary point of view, doing okay on Primacor. Keep head at 45 degrees. Bronchodilator, CPAP and percussion. Avoid sedation. Anticoagu lation. Follow up INR in the morning. Thank you, and will follow with you. Rosina Gabriel MD cc: [phone] TT: 10/14/2016 20:04:24 Confirmation # [id number] Dictation # [id number] mn
--- NOTE | 2016-10-14 22:10 | PN ---
DATE: 10/14/2016 SUBJECTIVE: The patient was seen and examined on the bedside, looks comfortable. No change overnight. No change in the status. Coughing is better. Shortness of breath is a little bit better. Seen by the bread room hand and beef ribber. No fever, no chills. Still on IV Primacor. PHYSICAL EXAMINATION: VITAL SIGNS: Temperature 98, heart rate 75, respiratory rate 20, blood pressure 99/49, pulse oximeter 96% on 2 liter nasal cannula. HEENT: Head normocephalic, atraumatic. Eyes: PERRLA. Extraocular muscles intact. Conjunctivae are pale. Nose patent. Mucous membranes moist. NECK: Supple. No carotid bruit, JVD or thyromegaly. CHEST: Bilaterally symmetrical. HEART: S1, S2 positive. LUNGS: Clear to auscultation. ABDOMEN: Soft. Bowel sounds present. No organomegaly. EXTREMITIES: No edema, no cyanosis. NEUROLOGIC: The patient is awake, alert and follows simple commands. MEDICATIONS: Brovana, Cardizem, Coreg, Coumadin, DuoNeb, Ecotrin, Effient, glipizide, insulin coverage, Levemir. LABORATORY DATA: INR is 1.80. Sodium 136, potassium 3.7, BUN 50, creatinine 2.3, AST 39, ALT 32. ASSESSMENT AND PLAN: The patient is a 71-year-old female with multiple medical problems with cardiomyopathy and heart failure, extensive coronary artery disease, coronary artery bypass surgery, history of coronary artery stents, hypertension, atrial fibrillation, diabetes mellitus, seasonal allergies, seen by beef ribber and bread room hand. The patient is doing okay on Primacor drip. Keep head elevated at 45 degree, bronchodilators. Avoid sedation. Continue anticoagulation. Continue followup of INR and Lovenox until INR becomes between 2 and 3, Seen by Dr. Nas Kemp, bread room hand. History of anemia, renal insufficiency. Dyspnea, chest pain, dizziness is better. Congestive heart failure. Percutaneous coronary intervention with a recent ostial right coronary artery stent. Left bundle branch block, history of colon resection, moderate mitral regurgitation. Plan is to continue milrinone drip home infusion, discontinue digoxin as per cardiology. Hold Lasix today. Monitor the I's and O's, renal function tests. Gastrointestinal and deep venous thrombosis prophylaxis. Repeat labs. We will follow up. Tanisha Lebron MD cc: [id number] TT: 10/14/2016 22:10:12 Confirmation # [id number] Dictation # [id number] jn MTDD
[2016-10-15] MEDS: Milrinone 20mg/100ml D5W 100 ML IV PRN ×3 (01:26→18:39)
[2016-10-15 07:17] LABS: INR 1.76 (0.93-1.08)
[2016-10-15 07:39] LABS: CALCIUM 9.7 mg/dL (8.4-10.5); POTASSIUM 3.8 mmol/L (3.6-5.0)
--- NOTE | 2016-10-15 07:47 | PQF CHF ---
This form is a permanent part of the medical record Dr. Lebron, Chart reflects this patient was admitted with CHF. Cardiology documented this is "decompensated CHF acute on chronic secondary to low out with severe LV dysfunction". Please specify if this is systolic dysfunction, diastolic? Clarification of your documentation is requested to better reflect the severity of illness and intensity of treatment of your patient. Indicators present [ ASK [employer] MACHINE [employer] PL ] [] Diagnosis of CHF and/or history of CHF [] BNP > 200 [] Imaging Finding of Pulmonary Edema /Pleural Effusions [] Fluid/Volume Overload [] Pitting edema [] Ejection Fraction < 40% (Indicative of Systolic Heart Failure) [] Ejection Fraction > 40% (Indicative of Diastolic Heart Failure) [] Dyspnea / Orthopenea / Paroxysmal Nocturnal Dyspnea [] Other: Location in the medical record that reflects the above clinical findings: [] Treatment Provided: [] PHYSICIAN'S RESPONSE Based on your medical judgment of the clinical indicators outlined above, are you treating this patient for a known or suspected: [] Acute CHF [] Systolic [] Diastolic [] Combined [] Chronic CHF [] Systolic [] Diastolic [] Combined [] Acute on Chronic CHF []Systolic [] Diastolic [] Combined [] CHF due hypertension [] Acute systolic []Chronic systolic [] Acute/ chronic systolic [] Other, please indicate: [] [] If Unable to Determine, please check the box, sign and date. Present On Admission (POA) Indicator: [] Present at the time of admission [] Not present at the time of admission [] Clinically Undetermined In responding to this query, please exercise your independent professional judgment. The fact that a question is asked does not imply that any particular answer is desired or expected. Thank you for your clarification on this documentation. If you have any questions please call:[ ] * Thank you, [ ]Landon [facility], #[id number] furniture lumber production worker [place]
--- NOTE | 2016-10-15 08:14 | CP.PCM.PN ---
Subjective - Date & Time of Evaluation Date of Evaluation: 10/15/16 Time of Evaluation: 07:00 - Subjective Subjective: Stable on 2R. She feels better. No chest pain or SOB this AM. Still HERNANDEZ with minimal exertion. V/S noted. RSR PE: Lungs: rhonchi Cor.: S1S2 Abd.: soft Ext.: mild edema. Neuro.: alert Labs noted: Cr. = 1.7, INR= 1.76 Objective - Vital Signs/Intake and Output Vital Signs (last 24 hours): Temp Pulse Resp BP Pulse Ox 98 F 91 H 18 134/56 L 96 10/15/16 06:00 10/15/16 06:00 10/15/16 06:00 10/15/16 06:00 10/15/16 06:00 Intake and Output: 10/15/16 10/15/16 06:59 18:59 Intake Total 1115 Balance 1115 - Medications Medications: Current Medications Albuterol/Ipratropium (Duoneb 3 Mg/0.5 Mg (3 Ml) Ud) 3 ml IH Q3H PRN PRN Reason: Shortness of Breath Arformoterol Tartrate (Brovana) 15 mcg IH [id number] [facility] Last Admin: 10/14/16 20:13 Dose: 15 mcg Aspirin (Ecotrin) 81 mg PO DAILY [facility] Last Admin: 10/14/16 10:51 Dose: 81 mg Atorvastatin Calcium (Lipitor) 20 mg PO DAILY [facility] Last Admin: 10/14/16 10:51 Dose: 20 mg Budesonide (Pulmicort Respules) 0.5 mg IH [id number] [facility] Last Admin: 10/14/16 20:13 Dose: 0.5 mg Carvedilol (Coreg) 12.5 mg PO BID [facility] Last Admin: 10/14/16 17:55 Dose: Not Given Diltiazem HCl (Cardizem Cd) 180 mg PO DAILY [facility] Last Admin: 10/14/16 10:59 Dose: Not Given Glipizide (Glucotrol) 10 mg PO DAILY [facility] Last Admin: 10/14/16 10:51 Dose: 10 mg Milrinone Lactate/Dextrose (Primacor 20mg/100ml D5w) 100 mls @ 6.94 mls/hr IV .[id number] PRN; Protocol; 0.3 MCG/KG/MIN PRN Reason: TITRATE PER MD ORDER Insulin Detemir (Levemir) 12 unit SC DAILY [facility] Last Admin: 10/14/16 10:59 Dose: 12 unit Insulin Human Regular (Humulin R Low) 0 units SC ACHS [facility] PRN Reason: Protocol Last Admin: 10/14/16 21:50 Dose: Not Given Lisinopril (Zestril) 20 mg PO DAILY [facility] Last Admin: 10/14/16 11:00 Dose: Not Given Nitroglycerin (Nitrostat Sl Tab) 0.4 mg SL PRN PRN PRN Reason: CHEST PAIN Non-Formulary Medication (Levocetirizine Dihydrochloride [Xyzal]) 5 mg PO DAILY [facility] Last Admin: 10/14/16 11:00 Dose: Not Given Non-Formulary Medication (Linagliptin [Tradjenta]) 5 mg PO DAILY [facility] Last Admin: 10/14/16 11:00 Dose: Not Given Ondansetron HCl (Zofran Inj) 4 mg IVP Q4H PRN PRN Reason: Nausea/Vomiting Prasugrel (Effient) 10 mg PO DAILY [facility] Last Admin: 10/14/16 10:51 Dose: 10 mg Sertraline HCl (Zoloft) 50 mg PO HS [facility] Last Admin: 10/14/16 21:51 Dose: 50 mg Warfarin Sodium (Coumadin) 2.5 mg PO 1800 [facility] PRN Reason: Protocol Last Admin: 10/14/16 17:54 Dose: 2.5 mg - Labs Labs: 10/13/16 07:40 10/15/16 06:00 PT 19.0 Seconds (9.9-11.8) H 10/15/16 07:00 INR 1.76 (0.93-1.08) H 10/15/16 07:00 APTT 43.4 Seconds (23.7-30.8) H 10/12/16 07:30 Assessment and Plan - Assessment and Plan (Free Text) Plan: Assessment: Dyspnea/CP/Dizziness CHF CAD/CABG/Sev. LVD PCIs/Recent ostial RCA stents PAF HBP Diabetes LBBB Colon resection Moderae MR Plan: Increase milrinone 0.3 mcg./Kg./min. Planning home infusion. Will need PICC or port placed. Resume Lasix 40 IV daily. Increase warfarin to 4 mg/day. Monitor INR's. OOB as lou. Monitor: I/O, labs, renal function, INR's, sats., etc. TCU evaluation. Will follow.
[2016-10-15] MEDS: Arformoterol 15 mcg/2 ml Inh Sol IH SCH ×2 (08:36→19:36)
[2016-10-15] MEDS: Budesonide 0.5 mg/2 ml Inhal Susp UD IH SCH ×2 (08:36→19:36)
[2016-10-15] MEDS: Insulin Detemir 100 units/ml Vial (Levemir) SC SCH (09:58)
[2016-10-15] MEDS: Non Formulary Medication (Linagliptin [Tradjenta] 5 MG) PO SCH (09:59)
[2016-10-15] MEDS: Insulin Reg-LOW-Coverage SC SCH ×4 (09:59→21:49)
[2016-10-15] MEDS: Non Formulary Medication (Levocetirizine Dihydrochloride [Xyzal] 5 MG) PO SCH (09:59)
[2016-10-15] MEDS: diltiaZEM 180 mg/24 Hours CD Cap PO SCH (10:09)
--- NOTE | 2016-10-15 17:58 | PN ---
DATE: 10/15/2016 REFERRING PHYSICIAN: Dr. Lebron. SUBJECTIVE: She is lying in the bed, sleepy, arousable. The night was unremarkable on dobutamine, f eels better. No nausea, no vomiting, no diarrhea. No leg pain or leg swelling. OBJECTIVE: GENERAL: No acute distress. VITAL SIGNS: Temp is 98, heart rate is 69, respiratory rate is 20, blood pressure 120/96, pulse ox 9 4% on nasal cannula. HEENT: Moist mucous membrane. No ulcer or thrush noted. NECK: Supple. No JVD. LUNGS: Have a few crackles at the bases. HEART: S1, S2. ABDOMEN: Soft, nontender. No organomegaly. EXTREMITIES: There is no edema. NEUROLOGIC: Awake, alert, follows simple commands. MEDICATIONS: She is on Brovana 15 mcg inhaled twice a day, Cardizem-CD 180 mg daily, Coreg 12.5 mg t wice a day, DuoNeb q. 6 hours p.r.n., Ecotrin 81 mg daily, Effient 10 mg daily, glipizide 10 mg daily , insulin coverage, Lasix 40 mg daily, Levemir 12 units subQ daily, Xyzal 5 mg daily, Tradjenta 5 mg daily, Lipitor 20 mg daily, Nitrostat p.r.n. basis, Primacor IV, Pulmicort inhaler twice a day, Zest ril 20 mg daily, Zofran 4 mg q. 4 hours p.r.n., Zoloft 50 mg at bedtime. LABORATORY DATA: Shows INR today of 1.76. Sodium 137, potassium 3.8, chloride 99, bicarbonate 27, B UN 30, creatinine 1.7, glucose 105, calcium 9.7. IMPRESSION AND PLAN: Cardiomyopathy with heart failure, extensive coronary artery disease, history o f coronary bypass surgery, history of coronary stent, hypertension, paroxysmal atrial fibrillation, d iabetes, seasonal allergies, may have a sleep apnea syndrome. Continue to encourage to decrease p.o. fluid intake, low salt diet. Keep head elevated at 45 degrees. Sleep apnea precaution. Outpatient sleep study. Continue anticoagulation. INR in the morning. May try to add hydralazine so that we can to try to decrease Primacor. Thank you and I will follow with you. Rosina Gabriel MD cc: [id number] TT: 10/15/2016 17:57:54 Confirmation # [id number] Dictation # [id number] mn
--- NOTE | 2016-10-16 06:06 | PN ---
DATE: 10/15/2016 SUBJECTIVE: The patient seen and examined on the bedside. Looks comfortable. No chest pain. No na usea, vomiting, or diarrhea. Feels better. No headache, no dizziness, no fever, no chills, no short ness of breath. PHYSICAL EXAMINATION: VITAL SIGNS: Temperature 98, heart rate 69, respirations 20, blood pressure 120/96, pulse oximeter 9 4% on nasal cannula. HEENT: Head normocephalic, atraumatic. Eyes: PERRLA. Extraocular movements intact Conjunctivae cl ear. Nose patent. NECK: Supple. No carotid bruit, JVD or thyromegaly. CHEST: Bilaterally symmetrical. LUNGS: Have a few crackles at the bases. HEART: S1, S2 positive. ABDOMEN: Soft, nontender. No organomegaly. EXTREMITIES: No edema, no cyanosis. NEUROLOGIC: The patient is awake, alert, follows simple commands, oriented x 3. Cranial nerves II-X II are grossly intact. MEDICATIONS: Brovana, Cardizem, Coreg, DuoNeb, Ecotrin, Effient, insulin, Lasix, Levemir, Tradjenta, Lipitor, Nitrostat, Primacor drip, Zestril, Zofran and Zoloft. LABORATORY DATA: INR is 1.76. Sodium 137, potassium 3.8, BUN 30, creatinine 1.7, glucose 105, calci um 9.7. ASSESSMENT AND PLAN: The patient is a 71-year-old lady with cardiomyopathy with heart failure, obstr uctive coronary artery disease, history of coronary bypass surgery, history of coronary stent, hypert ension, paroxysmal atrial fibrillation, diabetes mellitus, rhinitis, acute; seasonal allergy, sleep a pnea syndrome, is on Primacor drip. Lift Team Technician and spectroscopist on the case. Reviewed Dr. Gabriel 's notes. Continue to encourage decrease of p.o. fluid intake, low salt diet. Lifestyle modificatio ns, out of bed, physical therapy. Keep head elevated at 45 degrees. Sleep apnea precaution. Outpat ient sleep study. Will do blood test for INR monitoring. Dr. Gabriel added the hydralazine, so we ca n try to decrease the Primacor. Reviewed Dr. Nas Kemp's notes also. The patient has history of heavy smoking, anemia, renal insufficiency. Dyspnea and dizziness are getting better. Congestive he art failure, left bundle branch block, history of colon resection, moderate mitral regurgitation. Dr Mike Kemp increased the milrinone to 0.3 mcg per kg/minute. Planning for home infusion. Needs PICC l ine or port placement. Resume Lasix IV. Increase warfarin to 4 mg. Out of bed, physical therapy. We will try to TCU. Meanwhile, continue present treatment. Tanisha Lebron MD cc: [id number] TT: 10/16/2016 06:06:16 Confirmation # [id number] Dictation # [id number] tn
[2016-10-16 06:33] LABS: INR 1.93 (0.93-1.08)
[2016-10-16 06:43] LABS: CALCIUM 9.5 mg/dL (8.4-10.5); POTASSIUM 3.4 mmol/L (3.6-5.0)
[2016-10-16] MEDS: Arformoterol 15 mcg/2 ml Inh Sol IH SCH ×2 (07:33→20:07)
[2016-10-16] MEDS: Budesonide 0.5 mg/2 ml Inhal Susp UD IH SCH ×2 (07:33→20:07)
[2016-10-16] MEDS: Insulin Reg-LOW-Coverage SC SCH ×4 (08:02→22:06)
[2016-10-16] MEDS: Milrinone 20mg/100ml D5W 100 ML IV PRN (09:26)
--- NOTE | 2016-10-16 09:32 | PN ---
DATE: 10/16/2016 SUBJECTIVE: The patient is seen lying in bed on telemetry. She feels significantly better. She has had no chest discomfort. Her dyspnea has improved. She is tolerating milrinone well and appears to have good benefit from it. Unfortunately, insurance coverage for this as a home infusion appears ex tremely limited for her. Attempts are being made to find alternative options for. CURRENT MEDICATIONS: Include milrinone infusion, hydralazine 25 mg b.i.d., Brovana, Cardizem-CD 180 mg daily, carvedilol 12.5 mg b.i.d., Coumadin, DuoNeb inhaler, Ecotrin, Effient 10 mg daily, glipizid e 10 mg daily, Lasix 40 mg IV daily, Levemir insulin, Xyzal, Tradjenta 5 mg daily, Lipitor 20 mg alexis y, Pulmicort inhaler, Zestril 20 mg daily, Zoloft 50 mg at bedtime. OBJECTIVE: GENERAL: She is a middle-aged woman who appears comfortable at the present time. VITAL SIGNS: Blood pressure is 106/46 with a pulse of 72 with ventricular pacing, respirations are 1 6. She is afebrile. HEENT: No JVD. CHEST: Clear to auscultation and percussion. HEART: PMI displaced laterally with soft tones noted. ABDOMEN: Soft, nontender, normoactive bowel sounds. EXTREMITIES: No edema. DIAGNOSTIC DATA: Potassium is 3.4, BUN and creatinine are 25 and 1.2. INR is 1.93. IMPRESSION: 1. Decompensated congestive heart failure, clinically improved with milrinone infusion. 2. Coronary artery disease, status post prior bypass surgery and multivessel percutaneous coronary i ntervention with recent intervention on a right coronary artery ostial in-stent restenosis, clinicall y stable. 3. History of diabetes. 4. Hypertension. 5. Rest of the problems as noted. RECOMMENDATIONS: Her current medications will be continued. Attempts are being made to find alterna tives to provide for home infusion of milrinone. Her potassium will be replaced. She is being evalu ated for possible TCU placement. We will continue to follow and make further recommendations as appr opriate. Dwight Patiño MD cc: [id number] TT: 10/16/2016 09:32:10 Confirmation # [id number] Dictation # [id number] mn
[2016-10-16] MEDS: Potassium Chloride 20 mEq/15 ml LIQ UD PO SCH (09:34)
[2016-10-16] MEDS ORDERED: Lidocaine 2% Inj (20ml) ONE (11:55)
[2016-10-16] MEDS ORDERED: Heparin 0 ML IV ONE (11:55)
[2016-10-16] MEDS: diltiaZEM 180 mg/24 Hours CD Cap PO SCH (12:15)
[2016-10-16] MEDS: Insulin Detemir 100 units/ml Vial (Levemir) SC SCH (12:40)
[2016-10-16] MEDS: Non Formulary Medication (Levocetirizine Dihydrochloride [Xyzal] 5 MG) PO SCH (12:41)
[2016-10-16] MEDS: Non Formulary Medication (Linagliptin [Tradjenta] 5 MG) PO SCH (13:38)
--- NOTE | 2016-10-16 14:20 | PN ---
DATE: 10/16/2016 REFERRING PHYSICIAN: Dr. Lebron. SUBJECTIVE: She is lying in the bed, head at 45 degrees, feels better, on Primacor drip. No nausea, no vomiting, diarrhea. No leg pain or leg swelling. OBJECTIVE: GENERAL: No acute distress. VITAL SIGNS: Temperature is 98, heart rate is 94, respiratory rate is 18, blood pressure 117/62, pul se ox 96% on nasal cannula. HEENT: Moist mucous membrane. Crowded airway. Mallampati score is 4. NECK: Supple. No JVD. LUNGS: Have better airflow. HEART: S1, S2. ABDOMEN: Soft, nontender. No organomegaly. EXTREMITIES: There is no edema. NEUROLOGIC: Awake, alert, follows simple commands. MEDICATIONS: She is on hydralazine 25 mg twice a day, Brovana 15 mcg inhaled twice a day, Cardizem-C D 180 mg daily, Coreg 12.5 mg twice a day, Coumadin 5 mg daily, DuoNeb q. 6 hours, Ecotrin 81 mg alexis y, Effient 10 mg daily, glipizide 10 mg daily, insulin coverage, Lasix 40 mg IV daily, Levemir 12 uni ts subQ daily, Xyzal 5 mg daily, Tradjenta 5 mg daily, Lipitor 20 mg daily, Nitrostat p.r.n. basis, p otassium 20 mEq daily, Primacor IV drip, Pulmicort inhaled twice a day, Zestril 20 mg daily, Zofran o n a p.r.n. basis. LABORATORY DATA: Reviewed. INR 1.93. Sodium 137, potassium 3.4, chloride 101, bicarbonate 25, BUN 25, creatinine 1.2, glucose 116, calcium is 9.5. IMPRESSION AND PLAN: Cardiomyopathy with heart failure, extensive coronary artery disease, history o f coronary bypass surgery, coronary stent, hypertension, paroxysmal atrial fibrillation, diabetes, se asonal allergies, may have sleep apnea syndrome. Arrangements are being made to place her on home Pr imacor. Need to make sure with the executive secretary social welfare if it is approved and company willing to supply her Primacor. Sleep apnea precautions. May continue to maximize afterload delivery merchandiser, hydralazine 25 mg t wice a day and if she tolerates well in the next day or so, will increase to 25 mg q.i.d. and then ma y increase to 50 mg q.i.d. slowly, but watch for drop of systolic blood pressure closely. Will nadeem w with you. Rosina Gabriel MD cc: [id number] TT: 10/16/2016 14:19:19 Confirmation # [id number] Dictation # [id number] rn
--- NOTE | 2016-10-16 20:39 | PN ---
DATE: 10/16/2016 SUBJECTIVE: The patient seen and examined on the bedside, looks comfortable. No nausea, vomiting, or diarrhea. No hematuria or hematochezia. No swelling of the leg. No chest pain, no palpitation. Looks comfortable. Worrying about her going home on physical therapy and Primacor drip. No swelling of the leg. No fever, no chills. PHYSICAL EXAMINATION: VITAL SIGNS: Temperature 98, heart rate 94, respiratory rate 18, blood pressure 117/62, pulse oximetry 96% on nasal cannula. HEENT: Head normocephalic, atraumatic. Eyes: PERRLA. Extraocular muscles intact. Conjunctivae clear. Nose patent. Mucous membranes moist. NECK: Supple. No carotid bruit, JVD or thyromegaly. CHEST: Bilaterally symmetrical. HEART: S1, S2 positive. LUNGS: Clear to auscultation. ABDOMEN: Soft. Bowel sounds present. No organomegaly. EXTREMITIES: No edema, no cyanosis. NEUROLOGIC: Awake, alert, follows simple commands. MEDICATIONS: Hydralazine, Brovana, Cardizem, Coreg, Coumadin, Ecotrin, Effient , glipizide, insulin, Lasix, Levemir, Xyzal, Lipitor, Tradjenta, Nitrostat, potassium, Primacor, Pulmicort, Zestril, Zofran. LABORATORY DATA: INR is 1.93. Sodium 137, potassium 3.4, BUN 25, creatinine 1.2, glucose 116. ASSESSMENT AND PLAN: The patient is a 71-year-old female with cardiomyopathy with heart failure, obstructive coronary artery disease, history of coronary bypass surgery, coronary stent, hypertension, paroxysmal atrial fibrillation, diabetes mellitus, seasonal allergies, sleep apnea syndrome, is supposed to get port today for home infusion. Arrangements are being done for home Primacor, but insurance is getting a problem. Social workers are working with the infusion company. Sleep apnea precautions. Spoke with Dr. Fabricio Escudero about putting port and nurse practitioner, Paige, will try to take the patient to TCU where they are doing arrangement for home infusion Primacor. Continue hydralazine. Dr. Gabriel is increasing hydralazine slowly and watch for drop of systolic blood pressure. Gastrointestinal and deep venous thrombosis prophylaxis. Repeat labs. We will follow up. Tanisha Lebron MD cc: [id number] TT: 10/16/2016 20:39:00 Confirmation # [id number] Dictation # [id number] rn MTDD
[2016-10-17] MEDS: Milrinone 20mg/100ml D5W 100 ML IV PRN (02:19)
[2016-10-17 05:17] VITALS: O2SAT 94
[2016-10-17] MEDS: Insulin Reg-LOW-Coverage SC SCH ×4 (07:35→21:47)
--- NOTE | 2016-10-17 07:46 | CP.PCM.PN ---
Subjective - Date & Time of Evaluation Date of Evaluation: 10/17/16 Time of Evaluation: 07:00 - Subjective Subjective: Stable on 2R. She feels better. No chest pain or SOB this AM. Still HERNANDEZ with minimal exertion. Her insur. does not cover home milrinone infusion. V/S noted. RSR PE: Lungs: rhonchi Cor.: S1S2 Abd.: soft Ext.: mild edema. Neuro.: alert Labs 10/16 noted: Cr. = 1.2, INR= 1.93 Objective - Vital Signs/Intake and Output Vital Signs (last 24 hours): Temp Pulse Resp BP Pulse Ox 98.1 F 77 19 116/50 L 94 L 10/17/16 05:17 10/17/16 05:17 10/17/16 05:17 10/17/16 05:17 10/17/16 05:17 Intake and Output: 10/17/16 10/17/16 06:59 18:59 Intake Total 663 Output Total 1 Balance 662 - Medications Medications: Current Medications Albuterol/Ipratropium (Duoneb 3 Mg/0.5 Mg (3 Ml) Ud) 3 ml IH Q3H PRN PRN Reason: Shortness of Breath Arformoterol Tartrate (Brovana) 15 mcg IH [id number] [facility] Last Admin: 10/16/16 20:07 Dose: 15 mcg Aspirin (Ecotrin) 81 mg PO DAILY [facility] Last Admin: 10/16/16 12:42 Dose: 81 mg Atorvastatin Calcium (Lipitor) 20 mg PO DAILY [facility] Last Admin: 10/16/16 09:34 Dose: 20 mg Budesonide (Pulmicort Respules) 0.5 mg IH [id number] [facility] Last Admin: 10/16/16 20:07 Dose: 0.5 mg Carvedilol (Coreg) 12.5 mg PO BID [facility] Last Admin: 10/16/16 18:58 Dose: 12.5 mg Diltiazem HCl (Cardizem Cd) 180 mg PO DAILY [facility] Last Admin: 10/16/16 12:15 Dose: Not Given Furosemide (Lasix) 40 mg IVP DAILY [facility] Last Admin: 10/16/16 09:32 Dose: 40 mg Glipizide (Glucotrol) 10 mg PO DAILY [facility] Last Admin: 10/16/16 12:39 Dose: 10 mg Hydralazine HCl (Apresoline) 25 mg PO BID [facility] Last Admin: 10/16/16 18:59 Dose: 25 mg Milrinone Lactate/Dextrose (Primacor 20mg/100ml D5w) 100 mls @ 6.94 mls/hr IV .[id number] PRN; Protocol; 0.3 MCG/KG/MIN PRN Reason: TITRATE PER MD ORDER Last Admin: 10/17/16 02:19 Dose: 0.3 mcg/kg/min, 6.94 mls/hr Insulin Detemir (Levemir) 12 unit SC DAILY [facility] Last Admin: 10/16/16 12:40 Dose: 12 unit Insulin Human Regular (Humulin R Low) 0 units SC ACHS [facility] PRN Reason: Protocol Last Admin: 10/17/16 07:35 Dose: Not Given Lisinopril (Zestril) 20 mg PO DAILY [facility] Last Admin: 10/16/16 12:39 Dose: 20 mg Nitroglycerin (Nitrostat Sl Tab) 0.4 mg SL PRN PRN PRN Reason: CHEST PAIN Non-Formulary Medication (Levocetirizine Dihydrochloride [Xyzal]) 5 mg PO DAILY [facility] Last Admin: 10/16/16 12:41 Dose: Not Given Non-Formulary Medication (Linagliptin [Tradjenta]) 5 mg PO DAILY [facility] Last Admin: 10/16/16 13:38 Dose: Not Given Ondansetron HCl (Zofran Inj) 4 mg IVP Q4H PRN PRN Reason: Nausea/Vomiting Potassium Chloride (Potassium Chloride Oral Soln) 20 meq PO DAILY [facility] Last Admin: 10/16/16 09:34 Dose: 20 meq Prasugrel (Effient) 10 mg PO DAILY [facility] Last Admin: 10/16/16 12:42 Dose: 10 mg Sertraline HCl (Zoloft) 50 mg PO HS [facility] Last Admin: 10/16/16 22:07 Dose: 50 mg Warfarin Sodium (Coumadin) 5 mg PO 1800 [facility] PRN Reason: Protocol Last Admin: 10/16/16 18:59 Dose: 5 mg - Labs Labs: 10/13/16 07:40 10/16/16 05:00 PT 20.8 Seconds (9.9-11.8) H 10/16/16 05:00 INR 1.93 (0.93-1.08) H 10/16/16 05:00 APTT 43.4 Seconds (23.7-30.8) H 10/12/16 07:30 Assessment and Plan - Assessment and Plan (Free Text) Plan: Assessment: Dyspnea/CP/Dizziness CHF CAD/CABG/Sev. LVD PCIs/Recent ostial RCA stents PAF HBP Diabetes LBBB Colon resection Moderate MR Plan: Wean off milrinone. Reduce to 0.2 today. Continue Lasix 40 IV daily. OOB as lou. Monitor: I/O, labs, renal function, INR's, sats., etc. TCU evaluation. Will follow.
[2016-10-17] MEDS: Budesonide 0.5 mg/2 ml Inhal Susp UD IH SCH ×2 (08:16→22:48)
[2016-10-17] MEDS: Arformoterol 15 mcg/2 ml Inh Sol IH SCH ×2 (08:16→22:48)
[2016-10-17] MEDS ORDERED: Milrinone 20mg/100ml D5W 100 ML IV PRN (09:00)
--- NOTE | 2016-10-17 10:07 | PQF CHF ---
This form is a permanent part of the medical record Dr. Patiño, Having completed the cardiology consult on the patient you noted:"decompensated CHF acute on chronic secondary to low output with severe LV dysfunction". Could you please specify if this is systolic dysfunction, diastolic, other? Clarification of your documentation is requested to better reflect the severity of illness and intensity of treatment of your patient. Indicators present [x] Diagnosis of CHF and/or history of CHF [x] BNP > 200 [] Imaging Finding of Pulmonary Edema /Pleural Effusions [] Fluid/Volume Overload [] Pitting edema [x] Ejection Fraction < 40% (Indicative of Systolic Heart Failure) [] Ejection Fraction > 40% (Indicative of Diastolic Heart Failure) [x] Dyspnea / Orthopenea / Paroxysmal Nocturnal Dyspnea [] Other: Location in the medical record that reflects the above clinical findings: [] Treatment Provided: [] PHYSICIAN'S RESPONSE Based on your medical judgment of the clinical indicators outlined above, are you treating this patient for a known or suspected: [] Acute CHF [] Systolic [] Diastolic [] Combined [] Chronic CHF [] Systolic [] Diastolic [] Combined [x] Acute on Chronic CHF [x]Systolic [] Diastolic [] Combined [] CHF due hypertension [] Acute systolic []Chronic systolic [] Acute/ chronic systolic [] Other, please indicate: [] [] If Unable to Determine, please check the box, sign and date. Present On Admission (POA) Indicator: [x] Present at the time of admission [] Not present at the time of admission [] Clinically Undetermined In responding to this query, please exercise your independent professional judgment. The fact that a question is asked does not imply that any particular answer is desired or expected. Thank you for your clarification on this documentation. If you have any questions please call:[ ] * Thank you, [ ]Ellyn Booth [facility] #[id number] r d engineer [employer]
[2016-10-17] MEDS: diltiaZEM 180 mg/24 Hours CD Cap PO SCH (10:55)
[2016-10-17] MEDS: Potassium Chloride 20 mEq/15 ml LIQ UD PO SCH (10:55)
[2016-10-17] MEDS: Non Formulary Medication (Levocetirizine Dihydrochloride [Xyzal] 5 MG) PO SCH (10:57)
[2016-10-17] MEDS: Non Formulary Medication (Linagliptin [Tradjenta] 5 MG) PO SCH (10:57)
[2016-10-17] MEDS: Insulin Detemir 100 units/ml Vial (Levemir) SC SCH (10:57)
--- NOTE | 2016-10-17 11:30 | PN ---
DATE: 10/17/2016 REFERRING PHYSICIAN: Dr. Lebron. SUBJECTIVE: She is lying in the bed, head at 45 degrees. No headache, no rhinitis, no nausea, no vo miting, diarrhea. No leg pain or leg swelling. Been doing okay with ambulating. Still on Primacor. OBJECTIVE: GENERAL: No acute distress. VITAL SIGNS: Temp is 98, heart rate is 77, respiratory rate is 20, blood pressure 116/50, pulse ox 9 4% on nasal cannula. HEENT: Moist mucous membrane. Crowded airway. Mallampati score is 4. NECK: Supple. No JVD. LUNGS: Has a fair airflow with rhonchi. HEART: S1, S2. ABDOMEN: Soft, nontender. No organomegaly. EXTREMITIES: No edema. NEUROLOGIC: Awake, alert, follows simple commands. MEDICATIONS: She is on hydralazine 25 mg twice a day, Brovana 15 mcg q. 12 hours, Cardizem-CD 180 mg daily, Coreg 12.5 mg twice a day, Coumadin 5 mg daily, DuoNeb q. 6 hours, Ecotrin 81 mg daily, Kelli nt 10 mg daily, glipizide 10 mg daily, insulin coverage, Lasix 40 mg IV daily, Levemir 12 units subQ daily, Xyzal 5 mg daily, Tradjenta 5 mg daily, Lipitor 20 mg daily, Nitrostat p.r.n. basis, potassium 20 mEq daily, milrinone IV drip, Pulmicort inhaler twice a day, Zestril 20 mg daily, Zofran on a p.r .n. basis, Zoloft 50 mg daily. LABORATORY DATA: Reviewed, shows INR today 1.93. Blood sugar is 112. IMPRESSION AND PLAN: Cardiomyopathy with heart failure, extensive coronary artery disease, history o f coronary bypass surgery, coronary stent, hypertension, paroxysmal atrial fibrillation, diabetes, se asonal allergies, may have sleep apnea syndrome, activities of daily living dysfunction. Clinically she is doing well. Will have hard time getting her approved for Primacor at home. Tolerated hydrala zine well. We will increase hydralazine to 25 mg q.i.d. If she tolerates well, decrease Primacor an d discharge home on present medication, adding hydralazine 4 times a day. If her blood pressure syst olic stays above 90, may increase hydralazine slowly as an outpatient. We will try to get attended s leep study CPAP, rule out sleep apnea causes of cardiomyopathy. Will follow with you. Rosina Gabriel MD cc: [id number] TT: 10/17/2016 11:29:14 Confirmation # [id number] Dictation # [id number] rn
--- NOTE | 2016-10-18 07:08 | PN ---
DATE: 10/17/2016 SUBJECTIVE: The patient seen and examined on the bedside. Looks comfortable. No nausea, vomiting, or diarrhea. No hematuria or hematochezia. No swelling of the legs. No chest pain, no palpitation. No fever, no chills. Doing okay with ambulation. Still on Primacor drip, but tapering doses. PHYSICAL EXAMINATION: VITAL SIGNS: Temperature 98, heart rate 77, respiratory rate 20, blood pressure 115/50, and pulse ox imeter 94% with a nasal cannula. HEENT: Head normocephalic, atraumatic. Eyes: PERRLA. Extraocular movements intact. Conjunctivae clear. Nose patent. NECK: Supple. No carotid bruit, JVD or thyromegaly. CHEST: Bilaterally symmetrical. HEART: S1, S2 positive. LUNGS: Have fair airflow with a few rhonchi. HEART: S1, S2 positive. ABDOMEN: Soft, nontender. No organomegaly. EXTREMITIES: No edema, no cyanosis. NEUROLOGIC: The patient is awake, alert, moving all 4 extremities. No focal deficit. MEDICATIONS: Hydralazine, Brovana, Cardizem, Coreg, Coumadin, DuoNeb, Ecotrin, Effient, Tradjenta, L ipitor, Nitrostat, potassium, milrinone drip tapering doses, Pulmicort, Zestril, Zofran, Zoloft. LABORATORY DATA: We do not have recent labs today, but I reviewed old labs. INR 1.93, blood sugar 1 12. ASSESSMENT AND PLAN: The patient is a 71-year-old female with cardiomyopathy, congestive heart failu re, extensive coronary artery disease, history of coronary artery bypass surgery, history of coronary stent, hypertension, paroxysmal atrial fibrillation, diabetes mellitus, seasonal allergies, sleep ap areli syndrome, activities of daily living dysfunction. The patient is improving clinically. Plan was to send the patient home with Primacor but, as per the staff, insurance is not improving so we are t apering down Primacor. Tolerating hydralazine well. Continue with hydralazine. We are trying to do TCU. Will get physical therapy. Gastrointestinal and deep venous thrombosis prophylaxis. Repeat l abs. Will follow up. Tanisha Lebron MD cc: [id number] TT: 10/18/2016 07:07:54 Confirmation # [id number] Dictation # [id number] mn
[2016-10-18] MEDS: Budesonide 0.5 mg/2 ml Inhal Susp UD IH SCH ×2 (08:06→19:45)
[2016-10-18] MEDS: Arformoterol 15 mcg/2 ml Inh Sol IH SCH ×2 (08:06→19:45)
[2016-10-18 08:08] LABS: INR 3.15 (0.93-1.08)
[2016-10-18 08:23] LABS: CALCIUM 9.6 mg/dL (8.4-10.5); POTASSIUM 3.8 mmol/L (3.6-5.0)
[2016-10-18] MEDS: Insulin Reg-LOW-Coverage SC SCH ×4 (08:28→22:00)
--- NOTE | 2016-10-18 08:50 | CP.PCM.PN ---
Subjective - Date & Time of Evaluation Date of Evaluation: 10/18/16 Time of Evaluation: 07:00 - Subjective Subjective: Stable on 2R. She feels OK. No chest pain or SOB this AM. Her insur. does not cover home milrinone infusion. V/S noted. RSR PE: Lungs: rhonchi Cor.: S1S2 Abd.: soft Ext.: mild edema. Neuro.: alert Labs noted: INR= 3.15 Objective - Vital Signs/Intake and Output Vital Signs (last 24 hours): Temp Pulse Resp BP Pulse Ox 97.9 F 81 18 127/56 L 94 L 10/18/16 06:10 10/18/16 06:10 10/18/16 06:10 10/18/16 06:10 10/18/16 06:10 Intake and Output: 10/18/16 10/18/16 06:59 18:59 Intake Total 1790 Balance 1790 - Medications Medications: Current Medications Albuterol/Ipratropium (Duoneb 3 Mg/0.5 Mg (3 Ml) Ud) 3 ml IH Q3H PRN PRN Reason: Shortness of Breath Arformoterol Tartrate (Brovana) 15 mcg IH [id number] [facility] Last Admin: 10/18/16 08:06 Dose: 15 mcg Aspirin (Ecotrin) 81 mg PO DAILY [facility] Last Admin: 10/17/16 10:55 Dose: 81 mg Atorvastatin Calcium (Lipitor) 20 mg PO DAILY [facility] Last Admin: 10/17/16 10:55 Dose: 20 mg Budesonide (Pulmicort Respules) 0.5 mg IH [id number] [facility] Last Admin: 10/18/16 08:06 Dose: 0.5 mg Carvedilol (Coreg) 12.5 mg PO BID [facility] Last Admin: 10/17/16 17:57 Dose: 12.5 mg Diltiazem HCl (Cardizem Cd) 180 mg PO DAILY [facility] Last Admin: 10/17/16 10:55 Dose: 180 mg Furosemide (Lasix) 40 mg IVP DAILY [facility] Last Admin: 10/17/16 10:57 Dose: 40 mg Glipizide (Glucotrol) 10 mg PO DAILY [facility] Last Admin: 10/17/16 10:55 Dose: 10 mg Hydralazine HCl (Apresoline) 25 mg PO Q6 [facility] Milrinone Lactate/Dextrose (Primacor 20mg/100ml D5w) 100 mls @ 2.313 mls/hr IV .Q24H PRN; Protocol; 0.1 MCG/KG/MIN PRN Reason: TITRATE PER MD ORDER Insulin Detemir (Levemir) 12 unit SC DAILY [facility] Last Admin: 10/17/16 10:57 Dose: 12 unit Insulin Human Regular (Humulin R Low) 0 units SC ACHS [facility] PRN Reason: Protocol Last Admin: 10/18/16 08:28 Dose: Not Given Lisinopril (Zestril) 20 mg PO DAILY [facility] Last Admin: 10/17/16 10:57 Dose: Not Given Nitroglycerin (Nitrostat Sl Tab) 0.4 mg SL PRN PRN PRN Reason: CHEST PAIN Non-Formulary Medication (Levocetirizine Dihydrochloride [Xyzal]) 5 mg PO DAILY [facility] Last Admin: 10/17/16 10:57 Dose: Not Given Non-Formulary Medication (Linagliptin [Tradjenta]) 5 mg PO DAILY [facility] Last Admin: 10/17/16 10:57 Dose: Not Given Ondansetron HCl (Zofran Inj) 4 mg IVP Q4H PRN PRN Reason: Nausea/Vomiting Potassium Chloride (Potassium Chloride Oral Soln) 20 meq PO DAILY [facility] Last Admin: 10/17/16 10:55 Dose: 20 meq Prasugrel (Effient) 10 mg PO DAILY [facility] Last Admin: 10/17/16 10:55 Dose: 10 mg Sertraline HCl (Zoloft) 50 mg PO HS [facility] Last Admin: 10/17/16 21:44 Dose: 50 mg Warfarin Sodium (Coumadin) 1 mg PO 1800 [facility] PRN Reason: Protocol - Labs Labs: 10/13/16 07:40 10/18/16 06:30 PT 34.0 Seconds (9.9-11.8) H* 10/18/16 06:30 INR 3.15 (0.93-1.08) H 10/18/16 06:30 APTT 43.4 Seconds (23.7-30.8) H 10/12/16 07:30 Assessment and Plan - Assessment and Plan (Free Text) Plan: Assessment: Dyspnea/CP/Dizziness CHF, Class IV CAD/CABG/Sev. LVD PCIs/Recent NSTEMI/Recent ostial RCA stents PAF HBP Diabetes LBBB Colon resection Moderate MR Plan: Wean off milrinone. Reduce to 0.1 today and D/C tomorrow Continue Lasix 40 IV daily. Hold warfarin today. Monitor INR's daily. OOB as lou. Monitor: I/O, labs, renal function, INR's, sats., etc. TCU evaluation. Will follow.
--- NOTE | 2016-10-18 09:26 | PN ---
DATE: 10/18/2016 REFERRING PHYSICIAN: Dr. Lebron SUBJECTIVE: The patient is lying in the bed, head at 45 degrees, feels better. Decreased cough, dec reased shortness of breath. No nausea, no vomiting, no diarrhea. No leg pain or leg swelling. OBJECTIVE: GENERAL: No acute distress. VITAL SIGNS: Temperature is 98, heart rate is 81, respiratory rate is 18, blood pressure 127/56, pul se ox 94% on room air. HEENT: Moist mucous membrane. Crowded airway. NECK: Supple. No JVD. LUNGS: Have fair airflow with few rhonchi. HEART: S1 and S2. ABDOMEN: Soft, nontender. No organomegaly. EXTREMITIES: There is no edema. NEUROLOGIC: Awake, alert, follows simple commands. MEDICATIONS: She is on hydralazine 25 mg q. 6 hours, Brovana 15 mcg inhaled twice a day, Cardizem-CD 180 mg daily, Coreg 12.5 mg twice a day, Coumadin 5 mg daily, DuoNeb q. 6 hours, Ecotrin 81 mg daily , Effient 10 mg daily, glipizide 10 mg daily, Lasix 40 mg IV daily, Levemir 12 units subQ daily, Xyza l 5 mg daily, Tradjenta 5 mg daily, Lipitor 20 mg daily, nitroglycerin p.r.n. basis, potassium supple ment 20 mEq daily, Primacor IV, Pulmicort inhaled twice a day, Zestril 20 mg daily, Zofran 4 mg IV q. 4 hours p.r.n., Zoloft 50 mg at bedtime. INR is pending from today. Blood sugar is 97. IMPRESSION AND PLAN: Cardiomyopathy with heart failure, extensive coronary artery disease, history o f coronary artery bypass surgery, history of coronary stent, hypertension, paroxysmal atrial fibrilla tion, diabetes, seasonal allergies, may have sleep apnea syndrome. We will continue hydralazine. Ta per off of Primacor. Out of bed to chair, physical therapy, discharge planning. Thank you and we will follow with you. Rosina Gabriel MD cc: [id number] TT: 10/18/2016 09:25:52 Confirmation # [id number] Dictation # [id number] en
[2016-10-18] MEDS: Milrinone 20mg/100ml D5W 100 ML IV PRN (09:57)
[2016-10-18] MEDS: Potassium Chloride 20 mEq/15 ml LIQ UD PO SCH (10:14)
[2016-10-18] MEDS: diltiaZEM 180 mg/24 Hours CD Cap PO SCH (10:15)
[2016-10-18] MEDS: Non Formulary Medication (Linagliptin [Tradjenta] 5 MG) PO SCH (10:17)
[2016-10-18] MEDS: Non Formulary Medication (Levocetirizine Dihydrochloride [Xyzal] 5 MG) PO SCH (10:17)
[2016-10-18] MEDS: Insulin Detemir 100 units/ml Vial (Levemir) SC SCH (10:21)
[2016-10-18 11:14] LABS: ADD MANUAL DIFF? NO
[2016-10-18 11:21] LABS: BASO # 0.02 K/mm3 (0.0-2.0); BASO % 0.3 % (0.0-3.0); EOS # 0.3 (0.0-0.7); EOS % 3.5 % (1.5-5.0); GRAN # 5.11 (1.4-6.5); GRAN % 69.5 % (50.0-68.0); HEMATOCRIT 35.4 % (36.0-48.0); LYMPH # 1.4 (1.2-3.4); LYMPH % 18.3 % (22.0-35.0); MEAN CELL VOLUME 94.7 fL (80.0-105.0); MEAN CORPUSCULAR HGB CONC 32.8 g/dl (31.0-37.0); MEAN PLATELET VOLUME 8.8 fl (7.0-11.0); MONO # 0.6 (0.1-0.6); MONO % 8.4 % (1.0-6.0); PLATELET COUNT 327 10^3/uL (120.0-450.0); RED CELL DISTRIBUTION WIDTH 16.8 % (11.5-14.5); WHITE BLOOD COUNT 7.4 10^3/ul (4.5-11.0)
[2016-10-18 12:58] VITALS: RESP 20
--- NOTE | 2016-10-18 19:21 | PN ---
DATE: 10/18/2016 SUBJECTIVE: The patient seen and examined on the bedside, looks comfortable. No nausea, vomiting, or diarrhea. Getting tapering dose of milrinone. A drop wirer and comber operator is on the case. No chest pain, no fever, no chills, no nausea, vomiting, or diarrhea. No headache, no dizziness. No rash, no back pain. PHYSICAL EXAMINATION: VITAL SIGNS: Temperature 98, heart rate 81, respiratory rate 18, blood pressure 127/66, pulse oximeter 94% on room air. HEENT: Head normocephalic, atraumatic. Eyes: PERRLA. Extraocular muscles intact. Conjunctivae are clear. Nose patent. Mucous membranes moist. NECK: Supple. No carotid bruit, JVD or thyromegaly. CHEST: Bilaterally symmetrical. HEART: S1, S2 positive. LUNGS: Has fair airflow with few rhonchi. ABDOMEN: Soft, nontender. No organomegaly. EXTREMITIES: No edema, no cyanosis. NEUROLOGIC: The patient is awake, alert, follows simple commands. MEDICATIONS: Hydralazine, Brovana, Cardizem, Coreg, Coumadin, DuoNeb, Ecotrin, Effient, glipizide, Lasix, Levemir, Xyzal, Tradjenta, Lipitor, nitroglycerin, potassium, Primacor, Pulmicort, Zofran, Zoloft. LABORATORY DATA: We do not have recent labs today. white blood cells 7.4, hemoglobin 11.6, hematocrit 35.4, platelets 327. Sodium 140, potassium 3.8, BUN 22, creatinine 1.1, glucose 148, 268. INR 3.15, PT 34. ASSESSMENT AND PLAN: The patient is a 71-year-old lady with multiple medical problems, severe cardiomyopathy with heart failure, extensive coronary artery disease, history of coronary artery bypass graft surgery, history of coronary stent, hypertension, paroxysmal atrial fibrillation, diabetes mellitus, seasonal allergies, has sleep apnea syndrome. We are decreasing tapering Primacor and increasing hydralazine, out of bed, physical therapy, trying to do patient to TCU. Discussion done with Paige, nurse practitioner. The patient is getting physical therapy. I reviewed Dr. Kemp's notes and Dr. Gabriel's notes. Tried to send the patient home with milrinone drip, but insurance does not cover home infusion. History of diabetes mellitus, left bundle branch block , anemia, dyspnea. Chest pain, dizziness improving. Congestive heart failure class IV, as per drop wirer. Milrinone is reduced to 0.1 today. Tomorrow we will discontinue milrinone drip. We will try to take patient to TCU. Hold Coumadin today because INR is a little bit high. Doing INR every day. Out of bed, physical therapy. We will follow up. Tanisha Lebron MD cc: [id number] TT: 10/18/2016 19:20:22 Confirmation # [id number] Dictation # [id number] chas CHAIREZ
[2016-10-19] MEDS: Milrinone 20mg/100ml D5W 100 ML IV PRN (00:39)
[2016-10-19 07:59] LABS: CALCIUM 10.3 mg/dL (8.4-10.5); INR 3.1 (0.93-1.08); POTASSIUM 4.8 mmol/L (3.6-5.0)
[2016-10-19] MEDS: Arformoterol 15 mcg/2 ml Inh Sol IH SCH (08:08)
[2016-10-19] MEDS: Budesonide 0.5 mg/2 ml Inhal Susp UD IH SCH (08:08)
[2016-10-19] MEDS: Insulin Reg-LOW-Coverage SC SCH ×2 (08:47→12:01)
[2016-10-19] MEDS: Non Formulary Medication (Linagliptin [Tradjenta] 5 MG) PO SCH (10:40)
[2016-10-19] MEDS: Non Formulary Medication (Levocetirizine Dihydrochloride [Xyzal] 5 MG) PO SCH (10:40)
[2016-10-19] MEDS: Potassium Chloride 20 mEq/15 ml LIQ UD PO SCH (10:40)
[2016-10-19] MEDS: diltiaZEM 180 mg/24 Hours CD Cap PO SCH (10:51)
[2016-10-19] MEDS: Insulin Detemir 100 units/ml Vial (Levemir) SC SCH (10:51)
[2016-10-19 12:13] VITALS: BP 120/58; PULSE 82; TEMP 97.6
--- NOTE | 2016-10-19 14:00 | PN ---
DATE: 10/19/2016 SUBJECTIVE: The patient is seen sitting in bed on telemetry. She is anxious to go home. Her Primac or has been discontinued. She is unable to obtain insurance coverage for outpatient therapy for this . She denies any dyspnea at present. She has no chest pain. MEDICATIONS: Include hydralazine 25 mg q. 6 hours, Brovana, diltiazem 180 mg daily, carvedilol 12.5 mg b.i.d., Coumadin, DuoNeb inhaler, Ecotrin, Effient 10 mg daily, Glucotrol 10 mg daily, Lasix 40 mg IV daily, Levemir insulin, Tradjenta, Lipitor 20 mg daily, potassium 20 mEq daily, Pulmicort inhaler and Zestril 20 mg daily. OBJECTIVE: GENERAL: She is a middle-aged woman who is comfortable at rest. VITAL SIGNS: Her blood pressure is 120/60 with a pulse of 80, ventricular pacing, respirations are 1 6. She is afebrile. HEENT: No JVD. CHEST: Bilateral scattered rhonchi. HEART: PMI displaced laterally with soft tones noted and a systolic murmur left sternal border. ABDOMEN: Soft, nontender, normoactive bowel sounds. EXTREMITIES: No edema. DIAGNOSTIC DATA: Potassium 4.8, BUN and creatinine are 23 and 1.2. INR 3.10. IMPRESSION: 1. Decompensated congestive heart failure, acute on chronic, clinically improved. 2. Coronary artery disease, status post remote bypass surgery and multivessel percutaneous coronary intervention. 3. Severe left ventricular dysfunction. Rest of problems as noted. RECOMMENDATIONS: From cardiac standpoint, she is stable for discharge home today. Lasix will be swi tched to 40 mg p.o. b.i.d. The rest of her medications will continue unchanged. Close outpatient fo llowup will be arranged. Sodium and fluid restriction were advised. Dwight Patiño MD cc: [id number] TT: 10/19/2016 13:59:54 Confirmation # [id number] Dictation # [id number] chas
--- NOTE | 2016-10-19 21:35 | DS ---
CHIEF COMPLAINT: Shortness of breath and not feeling very well. HISTORY OF PRESENT ILLNESS: The patient is a 71-year-old female with past history of triple bypass, COPD, renal cyst, diabetes mellitus type 2, ventral hernia, bowel obstruction and prolapse of ileostomy, came to [facility], has history of smoking with shortness of breath, not feeling very well. The patient stated the shortness of breath is progressively worsened denies any relief with the inhalers or from home nebulizers. The patient also reports associated with chest tightness. The patient denies any fever, chills, nausea, vomiting, diarrhea. We admitted the patient. Cardiology consult called with Dr. Kemp because her crm functional analyst is Dr. Kemp. Pulmonary consult called with Dr. Gabriel. The patient has severe cardiomyopathy, was put on milrinone drip. Plan was the patient will go home with a drip, but insurance was not approving home infusion. Then we slowly started to decrease the drip, taper down and Dr. Gabriel started the patient on hydralazine and it increased slowly. Plan was to take the patient to TCU for rehabilitation, but she refused. She wanted to go home. Discharged home on prescription medications, written. PAST MEDICAL HISTORY: Triple bypass in 2002, hypertension, COPD, renal cyst, diabetes mellitus type 2, ventral hernia, bowel obstruction, prolapse of ileostomy, reversal of ileostomy in 2009, depression, history of open heart surgery. FAMILY HISTORY: Father and mother noncontributory. HABITS: No smoking, no drugs, no ethanol. ALLERGIES: THE PATIENT IS ALLERGIC TO PLAVIX. HOME MEDICATIONS: Reviewed by me. REVIEW OF SYSTEMS: The patient is seen and examined on the bedside. Looks comfortable. Shortness of breath is better. No nausea, vomiting, or diarrhea. No hematuria or hematochezia. No headache, no dizziness. No diarrhea. No dyspnea. PHYSICAL EXAMINATION: VITAL SIGNS: Temperature 97.6, pulse 82, blood pressure 120/58, respiratory rate 20. HEAD: Normocephalic, atraumatic. EYES: PERRLA. Extraocular muscles intact. Conjunctivae clear. Nose patent. Mucous membranes moist. NECK: Supple. No carotid bruit, JVD or thyromegaly. CHEST: Bilaterally symmetrical. HEART: S1, S2 positive. LUNGS: Clear to auscultation. ABDOMEN: Soft. Bowel sounds present. No organomegaly. EXTREMITIES: No edema, no cyanosis. NEUROLOGIC: The patient is awake, alert, moving all 4 extremities. No focal deficit. MEDICATIONS: White blood cells 7.4, hemoglobin 11.6, hematocrit 35.7, platelets 327. Sodium 139, potassium 4.80, BUN 23, creatinine 1.2, glucose 250 , 126. ASSESSMENT AND PLAN: The patient is a 71-year-old lady with anemia, history of leukocytosis, improved, uncontrolled diabetes mellitus, seen by patient's crm functional analyst, Dr. Dwight Patiño, partner of Dr. Nas Kemp, decompensated congestive heart failure, acute on chronic, clinically improved, coronary artery disease, status post remote bypass surgery and multilevel percutaneous coronary intervention, severe left ventricular dysfunction. Rest of problems, has diabetes mellitus, hypertension, hypercholesterolemia. The patient was getting IV Lasix which we changed to p.o. Close outpatient followup . Sodium and fluid restriction was advised. Urged to quit smoking. Seen by the claims customer service representative, Dr. Gabriel. History of chronic obstructive pulmonary disease, asthma, severe cardiomyopathy, paroxysmal atrial fibrillation, sleep apnea. The patient got tapering dose of Pulmicort and getting hydralazine. Plan was to take the patient to TCU for physical therapy, but she refused, now discharged home with followup in my office, to see Dr. Gabriel and Dr. Kemp. Tanisha Lebron MD cc: [id number] TT: 10/19/2016 21:35:12 chas CHAIREZ
== END 2016-10-19 14:20 | disposition home or self-care (01) | DRG 293 ==
LOC: ED 06:15 → OBSVTOIN 09:40 → UNDOADMOB 09:40 → INTOOBSV 09:40 → ERH 09:40 → 2RNO 11:03 → OBSVTOIN 17:00 → INTOOBSV 17:00 → 2RNO 17:00 → ERH 17:00
PROVIDERS: ADMIT Internal Medicine; ATTEND Internal Medicine
PROC: 3E0F7GC Introduction of Other Therapeutic Substance into Respiratory Tract, Via Natural or Artificial Opening (ICD-10-PCS; principal; 2016-10-13)
DX: I11.0 Hypertensive heart disease with heart failure (principal); I50.23 Acute on chronic systolic (congestive) heart failure; E11.65 Type 2 diabetes mellitus with hyperglycemia; I42.9 Cardiomyopathy, unspecified; I48.0 Paroxysmal atrial fibrillation; I25.10 Atherosclerotic heart disease of native coronary artery without angina pectoris; J44.9 Chronic obstructive pulmonary disease, unspecified; D64.9 Anemia, unspecified; I44.7 Left bundle-branch block, unspecified; I34.0 Nonrheumatic mitral (valve) insufficiency; F32.9 Major depressive disorder, single episode, unspecified; E78.00 Pure hypercholesterolemia, unspecified; G47.30 Sleep apnea, unspecified; J30.2 Other seasonal allergic rhinitis; N28.1 Cyst of kidney, acquired; R06.83 Snoring; I25.2 Old myocardial infarction; Z85.038 Personal history of other malignant neoplasm of large intestine; Z79.01 Long term (current) use of anticoagulants; Z79.82 Long term (current) use of aspirin; Z79.84 Long term (current) use of oral hypoglycemic drugs; Z95.5 Presence of coronary angioplasty implant and graft; Z86.711 Personal history of pulmonary embolism; Z95.1 Presence of aortocoronary bypass graft; Z90.49 Acquired absence of other specified parts of digestive tract; Z87.891 Personal history of nicotine dependence

== ENCOUNTER 2016-12-24 11:04 | Inpatient (IN) | payer MEDICARE, MEDICAID ==
[2016-12-24 11:09] VITALS: BMI 24.9
[2016-12-24] MEDS ORDERED: Albuterol-Ipratrop 3 mg / 0.5 (3 ml) UD IH STA (12:02)
--- NOTE | 2016-12-24 12:30 | ED PDOC ---
Arrival/HPI - General Time Seen by Provider: 12/24/16 11:49 Historian: Patient - History of Present Illness Narrative History of Present Illness (Text): 12/24/16 11:55 The patient is a 71yo female, PMHx of 3x CABG, CHF, HTN, COPD, DM, presents to the ED fro evaluation of neck pain s/p mechanical fall sustained 2 days ago. Pt states she was carrying a box of [employer] ornaments and fell backwards, injuring her left shoulder and neck. States the pain from her neck radiates down her back to her lower extremity. She denies any numbness but does report general weakness and difficulty walking. She is also complaining of Shortness of breathe that started today that has progressively worsened. She denies any chest pain, head injury, loss of consciousness. Pt offers no additional medical complaints. PCP: Dr. Lebron 12/24/16 13:32 Past Medical History - Provider Review Nursing Documentation Reviewed: Yes - Infectious Disease Hx of Infectious Diseases: None - Cardiac Hx Cardiac Disorders: Yes Hx Congestive Heart Failure: Yes - Pulmonary Hx Respiratory Disorders: Yes Hx Asthma: Yes Hx Pneumonia: Yes - Neurological Hx Neurological Disorder: No - HEENT Hx HEENT Disorder: No Hx Blind: (wear glasses) - Renal Hx Renal Disorder: No - Endocrine/Metabolic Hx Diabetes Mellitus Type 2: No - Hematological/Oncological Hx Blood Disorders: No - Integumentary Hx Dermatological Disorder: No - Musculoskeletal/Rheumatological Hx Musculoskeletal Disorders: No - Gastrointestinal Hx Ileostomy: Yes (2010) Other/Comment: Irritable Bowel Syndrome - Genitourinary/Gynecological Hx Genitourinary Disorders: No - Psychiatric Hx Psychophysiologic Disorder: No Hx Substance Use: No - Surgical History Hx Cardiac Catheterization: Yes Hx Coronary Stent: Yes Hx Musculoskeletal Surgery: Yes (neck fusion) Hx Open Heart Surgery: Yes - Anesthesia Hx Anesthesia: Yes Hx Anesthesia Reactions: No Hx Malignant Hyperthermia: No - Suicidal Assessment Feels Threatened In Home Enviroment: No Family/Social History - Physician Review Nursing Documentation Reviewed: Yes Family/Social History: Unknown Family HX Smoking Status: Former Smoker Hx Alcohol Use: No Hx Substance Use: No Allergies/Home Meds Allergies/Adverse Reactions: Allergies clopidogrel bisulfate [From Plavix] Allergy (Verified 08/26/16 09:29) RASH Home Medications: Home Meds Medication Instructions Recorded Confirmed GlipiZIDE [Glipizide] 10 mg PO DAILY 03/22/14 10/12/16 Nortriptyline HCl [Nortriptyline] 10 mg PO TID 03/22/14 10/12/16 Warfarin [Coumadin] 4 mg PO DAILY 03/22/14 10/12/16 Aspirin [Ecotrin] 81 mg PO DAILY 10/20/15 10/12/16 Digoxin [Lanoxin] 0.25 mg PO DAILY 10/20/15 10/12/16 Diltiazem HCl [Cardizem Cd] 180 mg PO DAILY 10/20/15 10/12/16 Nitroglycerin [Nitrostat] 0.4 mg SL PRN PRN 10/20/15 10/12/16 traMADol [Ultram] 50 mg PO DAILY PRN 10/20/15 10/12/16 Atorvastatin [Lipitor] 20 mg PO DAILY 08/21/16 10/12/16 Bumetanide [Bumex] 0.5 mg PO DAILY 08/21/16 10/12/16 Carvedilol [Coreg] 12.5 mg PO BID 08/21/16 10/12/16 Levocetirizine Dihydrochloride 5 mg PO DAILY 08/21/16 10/12/16 [Xyzal] Linagliptin [Tradjenta] 5 mg PO DAILY 08/21/16 10/12/16 Lisinopril [Zestril] 20 mg PO DAILY 08/21/16 10/12/16 Sertraline [Zoloft] 50 mg PO HS 08/21/16 10/12/16 Umeclidinium Ozan [Incruse 62.5 mcg IH DAILY 08/21/16 10/12/16 Ellipta] Prasugrel [Effient] 10 mg PO DAILY 08/28/16 10/12/16 Biotin [Biotin] 1 tab PO DAILY 10/12/16 10/12/16 Fluticasone/Salmeterol [Advair 1 puff IH BID 10/12/16 10/12/16 250-50 Diskus] Insulin Detemir [Levemir] 12 units SQ DAILY 10/12/16 10/12/16 Review of Systems - Review of Systems Constitutional: Other (weakness) Cardiovascular: absent: Chest Pain Musculoskeletal: Neck Pain, Other (left shoulder pain) Neurological: absent: Headache, Other (numbness) Physical Exam Vital Signs Temp Pulse Resp BP Pulse Ox 12/24/16 11:14 98.2 F 90 16 104/46 L 92 L - Systems Exam Head: Present: Atraumatic, Normocephalic Pupils: Present: PERRL Extroacular Muscles: Present: EOMI Conjunctiva: Present: Normal Mouth: Present: Moist Mucous Membranes Neck: Present: Normal Range of Motion, Other (diffuse tenderness on right side of neck, mid lower neck; c-collar placed by EMS prior to arrival) Respiratory/Chest: Present: Clear to Auscultation, Good Air Exchange, Tachypneic. No: Respiratory Distress, Accessory Muscle Use Cardiovascular: Present: Regular Rate and Rhythm, Normal S1, S2. No: Murmurs Abdomen: Present: Normal Bowel Sounds. No: Tenderness, Distention, Peritoneal Signs Back: Present: Normal Inspection. No: Midline Tenderness Upper Extremity: Present: Normal Inspection, Normal ROM, Other (ecchymosis noted to left shoulder). No: Cyanosis, Edema Lower Extremity: Present: Normal Inspection, Other (full strength and sensation) . No: Edema Neurological: Present: GCS=15, CN II-XII Intact, Speech Normal Skin: Present: Warm, Dry, Normal Color. No: Rashes Psychiatric: Present: Alert, Oriented x 3, Normal Insight, Normal Concentration Medical Decision Making ED Course and Treatment: Impression: Mechanical fall with neck pain, r/o fracture vs. dislocation shortness of breath secondary to COPD vs. CHF Differential Diagnosis included but are not limited to: Plan: -- EKG -- Duoneb 3ml INH -- Ultram 50mg PO -- Bloodwork -- CXR -- CT Cervical Spine -- Reassess and disposition Progress Notes: 12/24/16 13:33 Patient only mildly improved with Albuterol/Atrovent. BNP elevated and CXR shows moderate congestions. No infiltrate. CT reviewed and negative for fracture. Pain improved. Patient will be placed on observation for shortness of breathe secondary to CHF. 12/24/16 13:[address] Lebron who requested Dr. Kemp for Cardio and Dr. Oh for COPD. - Lab Interpretations Lab Results: 12/24/16 12:45 12/24/16 12:45 Lab Results 12/24/16 12:45: Sodium 129 L, Potassium 4.2, Chloride 97 L, Carbon Dioxide 21, Anion Gap 15, BUN 33 H, Creatinine 1.3, Est GFR ( Amer) 49, Est GFR (Non- Af Amer) 40, Random Glucose 231 H, Calcium 9.1, Lactate Dehydrogenase 299 L, Total Creatine Kinase < 20 L, Troponin I 0.06 D, NT-Pro-B Natriuret Pep 3990 H 12/24/16 12:45: PT 20.8 H, INR 1.93 H, APTT 42.6 H 12/24/16 12:45: WBC 11.4 H D, RBC 3.04 L, Hgb 9.2 L, Hct 27.4 L, MCV 90.1, MCH 30.3, MCHC 33.6, RDW 15.6 H, Plt Count 274, MPV 9.0, Gran % 87.3 H, Lymph % ( Auto) 5.2 L, [place] % (Auto) 5.5, Eos % (Auto) 1.7, Baso % (Auto) 0.3, Gran # 9.96 H, Lymph # 0.6 L, [place] # 0.6, Eos # 0.2, Baso # 0.03 - RAD Interpretation Radiology Orders: 12/24/16 12:02 CHEST PORTABLE [RAD] Stat 12/24/16 12:03 CERVICAL SPINE W/O CONTRAST [CT] Stat HEAD W/O CONTRAST [CT] Stat - EKG Interpretation EKG Interpretation (Text): Normal sinus 86 beats per minute Left bundle branch block 1st degree AV block No changes from previous EKG performed on 10/12/16 Interpreted by ED Physician: Yes - Medication Orders Current Medication Orders: Discontinued Medications Albuterol/Ipratropium (Duoneb 3 Mg/0.5 Mg (3 Ml) Ud) 3 ml IH STAT STA Stop: 12/24/16 12:03 Last Admin: 12/24/16 12:53 Dose: 3 ml Furosemide (Lasix) 40 mg IVP STAT STA Stop: 12/24/16 13:29 Tramadol HCl (Ultram) 50 mg PO STAT STA Stop: 12/24/16 12:05 Last Admin: 12/24/16 12:53 Dose: 50 mg - Scribe Statement The provider has reviewed the documentation as recorded by the Scribe Zohra Rylee Provider Scribe Attestation: All medical record entries made by the Scribe were at my direction and personally dictated by me. I have reviewed the chart and agree that the record accurately reflects my personal performance of the history, physical exam, medical decision making, and the department course for this patient. I have also personally directed, reviewed, and agree with the discharge instructions and disposition. Disposition/Present on Arrival - Present on Arrival Any Indicators Present on Arrival: Yes History of DVT/PE: No History of Uncontrolled Diabetes: Yes Urinary Catheter: No History of Decub. Ulcer: No History Surgical Site Infection Following: None - Disposition Have Diagnosis and Disposition been Completed?: Yes Diagnosis: Congestive heart failure Disposition: HOSPITALIZED Disposition Time: 14:00 Patient Plan: Observation Condition: FAIR
--- NOTE | 2016-12-24 12:43 | CT ---
PROCEDURE: CT HEAD WITHOUT CONTRAST. HISTORY: fall r/o ICH COMPARISON: None available. TECHNIQUE: Axial computed tomography images were obtained through the head/brain without intravenous contrast. Radiation dose: Total exam DLP = 801.31 mGy-cm. This CT exam was performed using one or more of the following dose reduction techniques: Automated exposure control, adjustment of the mA and/or kV according to patient size, and/or use of iterative reconstruction technique. FINDINGS: HEMORRHAGE: No intracranial hemorrhage. BRAIN: There are mild chronic microangiopathic changes. There is no mass, mass effect or abnormal extra-axial fluid collection. There is no territorial infarction. VENTRICLES: There is mild age-related global parenchymal volume loss and proportionate enlargement of the ventricles and cortical sulci the. CALVARIUM: There is no calvarial fracture or extracranial soft tissue swelling. PARANASAL SINUSES: Predominantly clear. MASTOID AIR CELLS: Predominantly clear. OTHER FINDINGS: None. IMPRESSION: No acute intracranial abnormality. Mild chronic microangiopathic changes and mild age-related global parenchymal volume loss.
--- NOTE | 2016-12-24 12:56 | CT ---
PROCEDURE: CT Cervical Spine without contrast HISTORY: Fall rule out fracture COMPARISON: None available. TECHNIQUE: Axial computed tomography images were obtained of the cervical spine without the use of intravenous contrast. Coronal and sagittal reformatted images were created and reviewed. Radiation dose: Total exam DLP = 611 mGy-cm. This CT exam was performed using one or more of the following dose reduction techniques: Automated exposure control, adjustment of the mA and/or kV according to patient size, and/or use of iterative reconstruction technique. FINDINGS: VERTEBRAE: No fracture. Normal alignment. No destructive bony lesion. DISCS/SPINAL CANAL/NEURAL FORAMINA: No significant central canal or neural foraminal stenosis. There is fusion of the disc space at C5-6 PARASPINAL SOFT TISSUES: Unremarkable. OTHER FINDINGS: None. IMPRESSION: No acute findings
--- NOTE | 2016-12-24 12:59 | RAD ---
HISTORY: sob COMPARISON: 10/12/2016 FINDINGS: LUNGS: No active pulmonary disease. PLEURA: No significant pleural effusion identified, no pneumothorax apparent. CARDIOVASCULAR: Moderate cardiomegaly. Moderate vascular congestion OSSEOUS STRUCTURES: No significant abnormalities. VISUALIZED UPPER ABDOMEN: Normal. OTHER FINDINGS: Dual lead pacemaker IMPRESSION: Moderate cardiomegaly and moderate vascular congestion
[2016-12-24 13:08] LABS: BASO # 0.03 K/mm3 (0.0-2.0); BASO % 0.3 % (0.0-3.0); EOS # 0.2 (0.0-0.7); EOS % 1.7 % (1.5-5.0); GRAN # 9.96 (1.4-6.5); GRAN % 87.3 % (50.0-68.0); HEMOGLOBIN 9.2 gm/dL (12.0-16.0); LYMPH # 0.6 (1.2-3.4); LYMPH % 5.2 % (22.0-35.0); MEAN CELL VOLUME 90.1 fL (80.0-105.0); MEAN CORPUSCULAR HEMOGLOBIN 30.3 pg (25.0-35.0); MEAN CORPUSCULAR HGB CONC 33.6 g/dl (31.0-37.0); MONO # 0.6 (0.1-0.6); MONO % 5.5 % (1.0-6.0); PLATELET COUNT 274 10^3/uL (120.0-450.0); RBC 3.04 10^6/uL (3.5-6.1); RED CELL DISTRIBUTION WIDTH 15.6 % (11.5-14.5); WHITE BLOOD COUNT 11.4 10^3/ul (4.5-11.0)
[2016-12-24 13:16] LABS: BLOOD UREA NITROGEN 33 mg/dL (7-21); CALCIUM 9.1 mg/dL (8.4-10.5); GFR AFRICAN-AMERICAN 49; GFR NON-AFRICAN AMERICAN 40
[2016-12-24 13:27] LABS: B-TYPE NATRIURETIC PEPTIDE 3990 pg/mL (0-450); TROPONIN I 0.06 ng/mL
[2016-12-24 13:40] LABS: INR 1.93 (0.93-1.08); PARTIAL THROMBOPLASTIN TIME 42.6 Seconds (23.7-30.8); PROTHROMBIN TIME 20.8 Seconds (9.9-11.8)
[2016-12-24] MEDS: Insulin Reg-LOW-Coverage SC SCH ×2 (16:47→21:36)
[2016-12-24] MEDS ORDERED: Fluticasone-Salmeterol 250-50mcg Diskus IH SCH (18:00)
[2016-12-24] MEDS: Budesonide 0.5 mg/2 ml Inhal Susp UD IH SCH (20:14)
[2016-12-24] MEDS: Arformoterol 15 mcg/2 ml Inh Sol IH SCH (20:14)
[2016-12-24] MEDS: Albuterol-Ipratrop 3 mg / 0.5 (3 ml) UD IH PRN (22:11)
--- NOTE | 2016-12-24 22:15 | CP.PCM.HP ---
History of Present Illness - History of Present Illness History of Present Illness: The patient is a 71yo female, PMHx of 3x CABG, CHF, HTN, COPD, DM, presents to the ED fro evaluation of neck pain s/p mechanical fall sustained 2 days ago. Pt states she was carrying a box of [place] ornaments and fell backwards, injuring her left shoulder and neck. States the pain from her neck radiates down her back to her lower extremity. She denies any numbness but does report general weakness and difficulty walking. She is also complaining of Shortness of breathe that started today that has progressively worsened. She denies any chest pain, head injury, loss of consciousness. Pt offers no additional medical complaints. except sob .s0n was sitting on the bed side , all ouestions answered Present on Admission - Present on Admission Any Indicators Present on Admission: No Review of Systems - Constitutional Constitutional: As Per HPI, Frequent Falls, Malaise - EENT Eyes: As Per HPI Ears: As Per HPI Nose/Mouth/Throat: As Per HPI - Breasts Breasts: As Per HPI - Cardiovascular Cardiovascular: As Per HPI - Respiratory Respiratory: As Per HPI, Cough, Dyspnea, Wheezing, Chest Congestion - Gastrointestinal Gastrointestinal: As Per HPI - Integumentary Integumentary: As Per HPI - Neurological Neurological: As Per HPI - Psychiatric Psychiatric: As Per HPI - Endocrine Endocrine: As Per HPI - Hematologic/Lymphatic Hematologic: As Per HPI Past Patient History - Infectious Disease Hx of Infectious Diseases: None - Past Social History Smoking Status: Former Smoker - CARDIAC Hx Cardiac Disorders: Yes Hx Congestive Heart Failure: Yes - PULMONARY Hx Respiratory Disorders: Yes Hx Asthma: Yes Hx Pneumonia: Yes Other/Comment: pulmonary embolism - NEUROLOGICAL Hx Neurological Disorder: No - HEENT Hx HEENT Problems: No Hx Blind: (wear glasses) - RENAL Hx Chronic Kidney Disease: No - ENDOCRINE/METABOLIC Hx Diabetes Mellitus Type 2: No - HEMATOLOGICAL/ONCOLOGICAL Hx Blood Disorders: No - INTEGUMENTARY Hx Dermatological Problems: No - MUSCULOSKELETAL/RHEUMATOLOGICAL Hx Musculoskeletal Disorders: No Hx Falls: Yes - GASTROINTESTINAL Hx Ileostomy: Yes (2010) Other/Comment: Irritable Bowel Syndrome - GENITOURINARY/GYNECOLOGICAL Hx Genitourinary Disorders: No - PSYCHIATRIC Hx Psychophysiologic Disorder: No - SURGICAL HISTORY Hx Cardiac Catheterization: Yes Hx Coronary Stent: Yes Hx Musculoskeletal Surgery: Yes (neck fusion) Hx Open Heart Surgery: Yes - ANESTHESIA Hx Anesthesia: Yes Hx Anesthesia Reactions: No Hx Malignant Hyperthermia: No Meds Allergies/Adverse Reactions: Allergies Allergy/AdvReac Type Severity Reaction Status Date / Time clopidogrel bisulfate Allergy RASH Verified 08/26/16 09:29 [From Plavix] Physical Exam - Constitutional Appears: Well - Head Exam Head Exam: ATRAUMATIC, NORMAL INSPECTION, NORMOCEPHALIC - Eye Exam Eye Exam: EOMI, Normal appearance, PERRL Pupil Exam: NORMAL ACCOMODATION, PERRL - ENT Exam ENT Exam: Mucous Membranes Moist, Normal Exam - Neck Exam Neck exam: Positive for: Full Rom, Normal Inspection - Respiratory Exam Respiratory Exam: Prolonged Expiratory Phase, Wheezes - Cardiovascular Exam Cardiovascular Exam: REGULAR RHYTHM - GI/Abdominal Exam GI & Abdominal Exam: Normal Bowel Sounds, Soft. absent: Tenderness - Rectal Exam Rectal Exam: NORMAL INSPECTION - Exam Exam: Circumcision, NORMAL INSPECTION External exam: NORMAL EXTERNAL EXAM Speculum exam: NORMAL SPECULUM EXAM Bimanual exam: NORMAL BIMANUAL EXAM - Extremities Exam Extremities exam: Positive for: normal inspection - Back Exam Back exam: NORMAL INSPECTION - Neurological Exam Neurological exam: Alert, CN II-XII Intact, Normal Gait, Oriented x3, Reflexes Normal - Psychiatric Exam Psychiatric exam: Normal Affect, Normal Mood - Skin Skin Exam: Dry, Intact, Normal Color, Warm Results - Vital Signs Recent Vital Signs: Last Vital Signs Temp 97.8 F 12/24/16 18:00 Pulse 84 12/24/16 18:00 Resp 20 12/24/16 18:00 BP 100/46 L 12/24/16 18:00 Pulse Ox 93 L 12/24/16 18:00 - Labs Result Diagrams: 12/24/16 12:45 12/24/16 12:45 Labs: Laboratory Results - last 24 hr 12/24/16 16:07 POC Glucose (mg/dL) 215 H Assessment & Plan (1) Neck pain Status: Acute (2) Congestive heart failure Status: Acute (3) Dyspnea Status: Acute - Assessment and Plan (Free Text) Assessment: The patient is a 71yo female, PMHx of 3x CABG, CHF, HTN, COPD, DM, presents to the ED fro evaluation of neck pain s/p mechanical fall sustained 2 days ago. Pt states she was carrying a box of [place] ornaments and fell backwards, injuring her left shoulder and neck. States the pain from her neck radiates down her back to her lower extremity. She denies any numbness but does report general weakness and difficulty walking. She is also complaining of Shortness of breathe that started today that has progressively worsened. She denies any chest pain, head injury, loss of consciousness. Pt offers no additional medical complaints. Plan: admitted the pt , call pul . consult , d/d with dr travis , meds ordered ,[place] of head and cervicle spine done , no acute finding . gi . dvt prophylaxes
--- NOTE | 2016-12-24 22:46 | CP.PCM.CON ---
History of Present Illness - History of Present Illness History of Present Illness: 71yo female, PMHx of 3x CABG, CHF, HTN, COPD, DM, suspected sleewp apnea, presents to the ED fro evaluation of neck pain s/p mechanical fall sustained 2 days ago. Pt states she fell backwards, injuring her left shoulder, upper back and neck. States the pain from her neck radiates down her back to her lower extremity. She is also complaining of Shortness of breathe that started today that has progressively worsened. She denies any chest pain, head injury, loss of consciousness. Pt offers no additional medical complaints. except sob .Son was sitting on the bed side has h/o load snoring and daytime sleepiness Review of Systems - Review of Systems Systems not reviewed;Unavailable: Respiratory Distress - Constitutional Constitutional: Daytime Sleepiness, Lethargy, Snoring, Sleep Apnea - EENT Eyes: absent: Diplopia, Discharge, Photophobia Ears: absent: Ear Discharge, Ear Pain Nose/Mouth/Throat: absent: Nasal Congestion, Nasal Discharge, Dysphagia, Hoarsness - Cardiovascular Cardiovascular: absent: Chest Pain, Claudication, Diaphoresis, Edema, Leg Edema - Respiratory Respiratory: Cough, Dyspnea, Wheezing, Snoring, Chest Congestion. absent: Hemoptysis, Stridor - Gastrointestinal Gastrointestinal: absent: Abdominal Pain, Bloating, Diarrhea, Dyspepsia - Musculoskeletal Musculoskeletal: Back Pain, Muscle Weakness, Myalgias, Neck Pain - Neurological Neurological: absent: Behavioral Changes, Dizziness, Headaches, Syncope - Psychiatric Psychiatric: absent: Hopelessness, Irritability Past Patient History - Infectious Disease Hx of Infectious Diseases: None - Past Social History Smoking Status: Former Smoker - CARDIAC Hx Cardiac Disorders: Yes Hx Congestive Heart Failure: Yes - PULMONARY Hx Respiratory Disorders: Yes Hx Asthma: Yes Hx Pneumonia: Yes Other/Comment: pulmonary embolism - NEUROLOGICAL Hx Neurological Disorder: No - HEENT Hx HEENT Problems: No Hx Blind: (wear glasses) - RENAL Hx Chronic Kidney Disease: No - ENDOCRINE/METABOLIC Hx Diabetes Mellitus Type 2: No - HEMATOLOGICAL/ONCOLOGICAL Hx Blood Disorders: No - INTEGUMENTARY Hx Dermatological Problems: No - MUSCULOSKELETAL/RHEUMATOLOGICAL Hx Musculoskeletal Disorders: No Hx Falls: Yes - GASTROINTESTINAL Hx Ileostomy: Yes (2010) Other/Comment: Irritable Bowel Syndrome - GENITOURINARY/GYNECOLOGICAL Hx Genitourinary Disorders: No - PSYCHIATRIC Hx Psychophysiologic Disorder: No - SURGICAL HISTORY Hx Cardiac Catheterization: Yes Hx Coronary Stent: Yes Hx Musculoskeletal Surgery: Yes (neck fusion) Hx Open Heart Surgery: Yes - ANESTHESIA Hx Anesthesia: Yes Hx Anesthesia Reactions: No Hx Malignant Hyperthermia: No Meds Allergies/Adverse Reactions: Allergies Allergy/AdvReac Type Severity Reaction Status Date / Time clopidogrel bisulfate Allergy RASH Verified 08/26/16 09:29 [From Plavix] - Medications Medications: Current Medications Acetaminophen (Tylenol 325mg Tab) 650 mg PO Q4H PRN PRN Reason: Pain, Mild (1-3) Albuterol/Ipratropium (Duoneb 3 Mg/0.5 Mg (3 Ml) Ud) 3 ml IH Q3H PRN PRN Reason: Shortness of Breath Last Admin: 12/24/16 22:11 Dose: 3 ml Arformoterol Tartrate (Brovana) 15 mcg IH [id number] [facility] Last Admin: 12/24/16 20:14 Dose: 15 mcg Aspirin (Ecotrin) 81 mg PO DAILY [facility] Atorvastatin Calcium (Lipitor) 20 mg PO DAILY [facility] Budesonide (Pulmicort Respules) 0.5 mg IH [id number] [facility] Last Admin: 12/24/16 20:14 Dose: 0.5 mg Bumetanide (Bumex) 0.5 mg PO DAILY [facility] Carvedilol (Coreg) 12.5 mg PO BID [facility] Last Admin: 12/24/16 17:36 Dose: Not Given Digoxin (Lanoxin) 0.25 mg PO DAILY [facility] Diltiazem HCl (Cardizem Cd) 180 mg PO DAILY [facility] Famotidine (Pepcid) 40 mg PO HS [facility] Last Admin: 12/24/16 21:19 Dose: 40 mg Glipizide (Glucotrol) 10 mg PO DAILY [facility] Insulin Detemir (Levemir) 12 unit SC DAILY [facility] Insulin Human Regular (Humulin R Low) 0 units SC ACHS [facility] PRN Reason: Protocol Last Admin: 12/24/16 21:36 Dose: Not Given Lisinopril (Zestril) 20 mg PO DAILY [facility] Loratadine (Claritin) 10 mg PO DAILY [facility] Nitroglycerin (Nitrostat Sl Tab) 0.4 mg SL PRN PRN PRN Reason: CHEST PAIN Non-Formulary Medication (Biotin [Biotin]) 1 tab PO DAILY [facility] Non-Formulary Medication (Linagliptin [Tradjenta]) 5 mg PO DAILY [facility] Non-Formulary Medication (Umeclidinium [place] [Incruse Ellipta]) 62.5 mcg IH DAILY [facility] Nortriptyline HCl (Pamelor) 10 mg PO TID [facility] Last Admin: 12/24/16 17:40 Dose: 10 mg Ondansetron HCl (Zofran Inj) 4 mg IVP Q4H PRN PRN Reason: Nausea/Vomiting Prasugrel (Effient) 10 mg PO DAILY [facility] Sertraline HCl (Zoloft) 50 mg PO HS [facility] Last Admin: 12/24/16 21:20 Dose: 50 mg Tramadol HCl (Ultram) 50 mg PO DAILY PRN PRN Reason: Pain, moderate (4-7) Warfarin Sodium (Coumadin) 4 mg PO 1800 [facility] Last Admin: 12/24/16 17:40 Dose: 4 mg Physical Exam - Constitutional Appears: No Acute Distress - Head Exam Head Exam: ATRAUMATIC, NORMAL INSPECTION, NORMOCEPHALIC - ENT Exam Additional comments: crouded air way - Neck Exam Neck exam: Positive for: Normal Inspection - Respiratory Exam Respiratory Exam: Chest Wall Tenderness, Prolonged Expiratory Phase, Rhonchi, Wheezes Additional comments: upper back bruis - Cardiovascular Exam Cardiovascular Exam: Irregular Rhythm - GI/Abdominal Exam GI & Abdominal Exam: Normal Bowel Sounds, Soft. absent: Tenderness - Extremities Exam Extremities exam: Positive for: normal inspection - Neurological Exam Neurological exam: Alert, CN II-XII Intact, Normal Gait, Oriented x3, Reflexes Normal - Psychiatric Exam Psychiatric exam: Flat Affect Results - Vital Signs Recent Vital Signs: Last Vital Signs Temp 97.8 F 12/24/16 18:00 Pulse 84 12/24/16 20:15 Resp 20 12/24/16 18:00 BP 100/46 L 12/24/16 18:00 Pulse Ox 93 L 12/24/16 18:00 - Labs Result Diagrams: 12/24/16 12:45 12/24/16 12:45 Labs: Laboratory Results - last 24 hr 12/24/16 12/24/16 16:07 21:19 POC Glucose (mg/dL) 215 H 162 H - Imaging and Cardiology CT scan - abdomen Status: Report reviewed by me Assessment & Plan (1) COPD (chronic obstructive pulmonary disease) Assessment and Plan: add iv and inhale bronvho dilators Status: Acute (2) KAREN (obstructive sleep apnea) Assessment and Plan: sleep apnea precaution sleep study as out patient Status: Acute (3) Congestive heart failure Assessment and Plan: diutetics Status: Acute (4) Bruise of both arms Assessment and Plan: supportive care Status: Acute (5) Soft tissue injury of back Status: Acute
[2016-12-24 23:07] LABS: HDL CHOLESTEROL 33 mg/dL (29-60); INR 2.05 (0.93-1.08); PROTHROMBIN TIME 22.1 Seconds (9.9-11.8)
[2016-12-24 23:17] LABS: LDL CHOLESTEROL 75 mg/dL (0-129)
[2016-12-24 23:19] LABS: TROPONIN I 0.11 ng/mL
[2016-12-24 23:29] LABS: % IRON SATURATION 7 % (20-55); IRON 26 ug/dL (45-180); TOTAL IRON BINDING CAPACITY 342 ug/dL (265-497)
[2016-12-25 07:27] LABS: HEMOGLOBIN 9.3 gm/dL (12.0-16.0); MEAN CELL VOLUME 90.2 fL (80.0-105.0); MEAN CORPUSCULAR HEMOGLOBIN 30.3 pg (25.0-35.0); MEAN CORPUSCULAR HGB CONC 33.6 g/dl (31.0-37.0); RBC 3.07 10^6/uL (3.5-6.1); RED CELL DISTRIBUTION WIDTH 15.8 % (11.5-14.5); WHITE BLOOD COUNT 9.9 10^3/ul (4.5-11.0)
[2016-12-25 07:37] LABS: INR 2.05 (0.93-1.08); PROTHROMBIN TIME 22.1 Seconds (9.9-11.8)
[2016-12-25 07:48] LABS: ALB/GLOB RATIO 1.2 (1.1-1.8); ALBUMIN 3.6 g/dL (3.0-4.8); CALCIUM 9.4 mg/dL (8.4-10.5)
[2016-12-25] MEDS: Budesonide 0.5 mg/2 ml Inhal Susp UD IH SCH ×2 (08:03→19:25)
[2016-12-25] MEDS: Albuterol-Ipratrop 3 mg / 0.5 (3 ml) UD IH PRN (08:03)
[2016-12-25] MEDS: Arformoterol 15 mcg/2 ml Inh Sol IH SCH ×2 (08:03→19:25)
[2016-12-25] MEDS: Insulin Reg-LOW-Coverage SC SCH ×4 (08:10→22:09)
[2016-12-25] MEDS ORDERED: Non Formulary Medication (Warfarin [Coumadin] 4 MG) PO SCH (10:00)
[2016-12-25] MEDS: BIOTIN PO SCH (10:29)
[2016-12-25] MEDS: diltiaZEM 180 mg/24 Hours CD Cap PO SCH (10:30)
[2016-12-25] MEDS: Insulin Detemir 100 units/ml Vial (Levemir) SC SCH (10:32)
[2016-12-25] MEDS: Digoxin 250 mcg (0.25 mg) Tab PO SCH (10:32)
[2016-12-25] MEDS: Non Formulary Medication (Linagliptin [Tradjenta] 5 MG) PO SCH (10:33)
[2016-12-25] MEDS: Non Formulary Medication (Umeclidinium Bromide [Incruse Ellipta] 62.5 MCG) IH SCH (10:33)
[2016-12-25 12:36] LABS: FOLATE > 20.0 ng/mL
[2016-12-25 13:01] LABS: PH,URINE 5.5 (4.7-8.0); URINE BILIRUBIN NEGATIVE (NEGATIVE); URINE BLOOD NEGATIVE (NEGATIVE); URINE GLUCOSE (UA) NEGATIVE (NEGATIVE); URINE LEUKOCYTE ESTERASE NEGATIVE Leu/uL (NEGATIVE); URINE NITRATE NEGATIVE (NEGATIVE); URINE PROTEIN NEGATIVE mg/dL (<30 mg/dL)
[2016-12-25 13:06] LABS: URINE APPEARANCE CLEAR (CLEAR); URINE COLOR YELLOW (YELLOW)
--- NOTE | 2016-12-25 13:49 | CP.PCM.PN ---
Subjective - Date & Time of Evaluation Date of Evaluation: 12/25/16 Time of Evaluation: 12:00 - Subjective Subjective: 71yo female, PMHx of 3x CABG, CHF, HTN, COPD, DM, suspected sleewp apnea, presents to the ED fro evaluation of neck pain s/p mechanical fall sustained 2 days ago. Pt states she fell backwards, injuring her left shoulder, upper back and neck. States the pain from her neck radiates down her back to her lower extremity. She is also complaining of Shortness of breathe that started today that has progressively worsened. She denies any chest pain, head injury, loss of consciousness. Pt offers no additional medical complaints. except sob .Son was sitting on the bed side has h/o load snoring and daytime sleepiness 12/25/2016: feels little better, stile has cough and SOB Objective - Vital Signs/Intake and Output Vital Signs (last 24 hours): Temp Pulse Resp BP Pulse Ox 98.2 F 84 20 115/59 L 100 12/25/16 12:00 12/25/16 12:00 12/25/16 12:00 12/25/16 12:00 12/25/16 06:00 Intake and Output: 12/25/16 12/25/16 06:59 18:59 Intake Total 480 Output Total 300 Balance 180 - Medications Medications: Current Medications Acetaminophen (Tylenol 325mg Tab) 650 mg PO Q4H PRN PRN Reason: Pain, Mild (1-3) Last Admin: 12/25/16 08:12 Dose: 650 mg Arformoterol Tartrate (Brovana) 15 mcg IH [id number] [facility] Last Admin: 12/25/16 08:03 Dose: 15 mcg Aspirin (Ecotrin) 81 mg PO DAILY [facility] Last Admin: 12/25/16 10:31 Dose: 81 mg Atorvastatin Calcium (Lipitor) 20 mg PO DAILY [facility] Last Admin: 12/25/16 10:33 Dose: 20 mg Budesonide (Pulmicort Respules) 0.5 mg IH [id number] [facility] Last Admin: 12/25/16 08:03 Dose: 0.5 mg Bumetanide (Bumex) 0.5 mg PO DAILY [facility] Last Admin: 12/25/16 10:38 Dose: 0.5 mg Carvedilol (Coreg) 12.5 mg PO BID [facility] Last Admin: 12/25/16 10:31 Dose: 12.5 mg Digoxin (Lanoxin) 0.25 mg PO DAILY [facility] Last Admin: 12/25/16 10:32 Dose: 0.25 mg Diltiazem HCl (Cardizem Cd) 180 mg PO DAILY [facility] Last Admin: 12/25/16 10:30 Dose: 180 mg Famotidine (Pepcid) 40 mg PO HS [facility] Last Admin: 12/24/16 21:19 Dose: 40 mg Furosemide (Lasix) 40 mg IVP DAILY [facility] Glipizide (Glucotrol) 10 mg PO DAILY [facility] Last Admin: 12/25/16 10:32 Dose: 10 mg Insulin Detemir (Levemir) 12 unit SC DAILY [facility] Last Admin: 12/25/16 10:32 Dose: 12 unit Insulin Human Regular (Humulin R Low) 0 units SC ACHS [facility] PRN Reason: Protocol Last Admin: 12/25/16 11:30 Dose: Not Given Lisinopril (Zestril) 20 mg PO DAILY [facility] Last Admin: 12/25/16 10:34 Dose: 20 mg Loratadine (Claritin) 10 mg PO DAILY [facility] Last Admin: 12/25/16 10:30 Dose: 10 mg Methylprednisolone (Solu-Medrol) 30 mg IVP Q12 [facility] Nitroglycerin (Nitrostat Sl Tab) 0.4 mg SL PRN PRN PRN Reason: CHEST PAIN Non-Formulary Medication (Biotin [Biotin]) 1 tab PO DAILY [facility] Last Admin: 12/25/16 10:29 Dose: Not Given Non-Formulary Medication (Linagliptin [Tradjenta]) 5 mg PO DAILY [facility] Last Admin: 12/25/16 10:33 Dose: Not Given Non-Formulary Medication (Umeclidinium [place] [Incruse Ellipta]) 62.5 mcg IH DAILY [facility] Last Admin: 12/25/16 10:33 Dose: Not Given Nortriptyline HCl (Pamelor) 10 mg PO TID [facility] Last Admin: 12/25/16 10:33 Dose: 10 mg Ondansetron HCl (Zofran Inj) 4 mg IVP Q4H PRN PRN Reason: Nausea/Vomiting Prasugrel (Effient) 10 mg PO DAILY [facility] Last Admin: 12/25/16 10:31 Dose: 10 mg Sertraline HCl (Zoloft) 50 mg PO HS [facility] Last Admin: 12/24/16 21:20 Dose: 50 mg Tramadol HCl (Ultram) 50 mg PO DAILY PRN PRN Reason: Pain, moderate (4-7) Last Admin: 12/25/16 00:25 Dose: 50 mg Warfarin Sodium (Coumadin) 4 mg PO 1800 [facility] Last Admin: 12/24/16 17:40 Dose: 4 mg - Labs Labs: 12/25/16 07:05 12/25/16 07:05 PT 22.1 Seconds (9.9-11.8) H 12/25/16 07:05 INR 2.05 (0.93-1.08) H 12/25/16 07:05 APTT 42.6 Seconds (23.7-30.8) H 12/24/16 12:45 - Constitutional Appears: No Acute Distress - Head Exam Head Exam: ATRAUMATIC, NORMAL INSPECTION, NORMOCEPHALIC - Neck Exam Neck Exam: Full ROM, Normal Inspection. absent: Lymphadenopathy - Respiratory Exam Respiratory Exam: Rhonchi, Wheezes - Cardiovascular Exam Cardiovascular Exam: REGULAR RHYTHM, +S1, +S2. absent: Murmur - GI/Abdominal Exam GI & Abdominal Exam: Soft, Normal Bowel Sounds. absent: Tenderness - Extremities Exam Extremities Exam: Full ROM, Normal Capillary Refill, Normal Inspection, Pedal Edema. absent: Joint Swelling - Neurological Exam Neurological Exam: Alert, Awake, CN II-XII Intact, Normal Gait, Oriented x3 - Psychiatric Exam Psychiatric exam: Flat Affect Assessment and Plan (1) COPD (chronic obstructive pulmonary disease) Assessment & Plan: iv and inhale bronchodilators, pulmonaru toilet Status: Acute (2) KAREN (obstructive sleep apnea) Assessment & Plan: out patient sleep study, avoid sedation Status: Acute (3) Congestive heart failure Assessment & Plan: diuretics and after load self pay representative Status: Acute (4) Bruise of both arms Assessment & Plan: supportive care Status: Acute (5) Soft tissue injury of back Assessment & Plan: fall precaution Status: Acute
--- NOTE | 2016-12-25 16:46 | CARD ---
APPROVED REPORT EKG Measurement Heart [id number] <Conclusion> Normal sinus rhythm Left bundle branch block Abnormal ECG
--- NOTE | 2016-12-25 17:36 | CP.PCM.CON ---
History of Present Illness - History of Present Illness History of Present Illness: Requesting physician: Dr. Mcfadden Reason for consultation: Congestive heart failure This is a 71-year-old woman well-known to us with extremely complex cardiac history including known coronary disease, status post multivessel PCI, prior bypass surgery, severe LV dysfunction and recurrent congestive heart failure who presented to the emergency room yesterday after a fall at home. She became dizzy and fell and suffered multiple contusions. In the emergency room, she became severely short of breath. She was felt to be in congestive heart failure. She was treated with IV diuretics. She felt significantly better. She denied any chest pain. She has had prior ventricular tachycardia and has a defibrillator in place. She had a history of paroxysmal atrial fibrillation as well. Review of Systems - Constitutional Constitutional: As Per HPI - EENT Eyes: As Per HPI Nose/Mouth/Throat: As Per HPI - Cardiovascular Cardiovascular: As Per HPI - Respiratory Respiratory: As Per HPI - Gastrointestinal Gastrointestinal: As Per HPI - Musculoskeletal Musculoskeletal: As Per HPI Past Patient History - Infectious Disease Hx of Infectious Diseases: None - Past Social History Smoking Status: Former Smoker - CARDIAC Hx Cardiac Disorders: Yes Hx Angina: Yes Hx Atrial Fibrillation: Yes Hx Cardia Arrhythmia: Yes Hx Congestive Heart Failure: Yes Hx Heart Attack: Yes Hx Internal Defibrillator: Yes - PULMONARY Hx Respiratory Disorders: Yes Hx Asthma: Yes Hx Pneumonia: Yes Other/Comment: pulmonary embolism - NEUROLOGICAL Hx Neurological Disorder: No - HEENT Hx HEENT Problems: No Hx Blind: (wear glasses) - RENAL Hx Chronic Kidney Disease: No - ENDOCRINE/METABOLIC Hx Diabetes Mellitus Type 2: No - HEMATOLOGICAL/ONCOLOGICAL Hx Blood Disorders: No - INTEGUMENTARY Hx Dermatological Problems: No - MUSCULOSKELETAL/RHEUMATOLOGICAL Hx Musculoskeletal Disorders: No Hx Falls: Yes - GASTROINTESTINAL Hx Ileostomy: Yes (2010) Other/Comment: Irritable Bowel Syndrome - GENITOURINARY/GYNECOLOGICAL Hx Genitourinary Disorders: No - PSYCHIATRIC Hx Psychophysiologic Disorder: No - SURGICAL HISTORY Hx Cardiac Catheterization: Yes Hx Coronary Stent: Yes Hx Musculoskeletal Surgery: Yes (neck fusion) Hx Open Heart Surgery: Yes - ANESTHESIA Hx Anesthesia: Yes Hx Anesthesia Reactions: No Hx Malignant Hyperthermia: No Meds Allergies/Adverse Reactions: Allergies Allergy/AdvReac Type Severity Reaction Status Date / Time clopidogrel bisulfate Allergy RASH Verified 08/26/16 09:29 [From Plavix] - Medications Medications: Current Medications Acetaminophen (Tylenol 325mg Tab) 650 mg PO Q4H PRN PRN Reason: Pain, Mild (1-3) Last Admin: 12/25/16 08:12 Dose: 650 mg Arformoterol Tartrate (Brovana) 15 mcg IH [id number] [facility] Last Admin: 12/25/16 08:03 Dose: 15 mcg Aspirin (Ecotrin) 81 mg PO DAILY [facility] Last Admin: 12/25/16 10:31 Dose: 81 mg Atorvastatin Calcium (Lipitor) 20 mg PO DAILY [facility] Last Admin: 12/25/16 10:33 Dose: 20 mg Budesonide (Pulmicort Respules) 0.5 mg IH [id number] [facility] Last Admin: 12/25/16 08:03 Dose: 0.5 mg Bumetanide (Bumex) 0.5 mg PO DAILY [facility] Last Admin: 12/25/16 10:38 Dose: 0.5 mg Carvedilol (Coreg) 12.5 mg PO BID [facility] Last Admin: 12/25/16 10:31 Dose: 12.5 mg Digoxin (Lanoxin) 0.25 mg PO DAILY [facility] Last Admin: 12/25/16 10:32 Dose: 0.25 mg Diltiazem HCl (Cardizem Cd) 180 mg PO DAILY [facility] Last Admin: 12/25/16 10:30 Dose: 180 mg Doxycycline Hyclate (Doryx) 100 mg PO Q12 [facility] PRN Reason: Protocol Last Admin: 12/25/16 14:02 Dose: 100 mg Famotidine (Pepcid) 40 mg PO HS [facility] Last Admin: 12/24/16 21:19 Dose: 40 mg Furosemide (Lasix) 40 mg IVP DAILY [facility] Glipizide (Glucotrol) 10 mg PO DAILY [facility] Last Admin: 12/25/16 10:32 Dose: 10 mg Insulin Detemir (Levemir) 12 unit SC DAILY [facility] Last Admin: 12/25/16 10:32 Dose: 12 unit Insulin Human Regular (Humulin R Low) 0 units SC ACHS [facility] PRN Reason: Protocol Last Admin: 12/25/16 17:23 Dose: 1 units Lisinopril (Zestril) 20 mg PO DAILY [facility] Last Admin: 12/25/16 10:34 Dose: 20 mg Loratadine (Claritin) 10 mg PO DAILY [facility] Last Admin: 12/25/16 10:30 Dose: 10 mg Methylprednisolone (Solu-Medrol) 30 mg IVP Q12 [facility] Nitroglycerin (Nitrostat Sl Tab) 0.4 mg SL PRN PRN PRN Reason: CHEST PAIN Non-Formulary Medication (Biotin [Biotin]) 1 tab PO DAILY [facility] Last Admin: 12/25/16 10:29 Dose: Not Given Non-Formulary Medication (Linagliptin [Tradjenta]) 5 mg PO DAILY [facility] Last Admin: 12/25/16 10:33 Dose: Not Given Non-Formulary Medication (Umeclidinium [place] [Incruse Ellipta]) 62.5 mcg IH DAILY [facility] Last Admin: 12/25/16 10:33 Dose: Not Given Nortriptyline HCl (Pamelor) 10 mg PO TID [facility] Last Admin: 12/25/16 14:01 Dose: 10 mg Ondansetron HCl (Zofran Inj) 4 mg IVP Q4H PRN PRN Reason: Nausea/Vomiting Prasugrel (Effient) 10 mg PO DAILY [facility] Last Admin: 12/25/16 10:31 Dose: 10 mg Sertraline HCl (Zoloft) 50 mg PO HS [facility] Last Admin: 12/24/16 21:20 Dose: 50 mg Tramadol HCl (Ultram) 50 mg PO DAILY PRN PRN Reason: Pain, moderate (4-7) Last Admin: 12/25/16 15:01 Dose: 50 mg Warfarin Sodium (Coumadin) 4 mg PO 1800 [facility] Last Admin: 12/24/16 17:40 Dose: 4 mg Physical Exam - Constitutional Appears: Well - Head Exam Head Exam: NORMAL INSPECTION - Neck Exam Neck exam: Positive for: Normal Inspection - Respiratory Exam Respiratory Exam: Rales (rales present at left base.) - Cardiovascular Exam Cardiovascular Exam: Systolic Murmur (systolic murmur present in left sternal border. Soft heart tones present.) - GI/Abdominal Exam GI & Abdominal Exam: Normal Bowel Sounds, Soft. absent: Tenderness - Extremities Exam Extremities exam: Positive for: normal inspection - Back Exam Back exam: NORMAL INSPECTION - Psychiatric Exam Psychiatric exam: Normal Affect, Normal Mood - Skin Skin Exam: Dry, Intact, Normal Color, Warm Results - Vital Signs Recent Vital Signs: Last Vital Signs Temp 98.2 F 12/25/16 12:00 Pulse 75 07/12/17 14:00 Resp 20 12/25/16 12:00 BP 115/59 L 12/25/16 12:00 Pulse Ox 100 12/25/16 06:00 - Labs Result Diagrams: 12/25/16 07:05 12/25/16 07:05 Labs: Laboratory Results - last 24 hr 12/25/16 15:59 POC Glucose (mg/dL) 180 H - EKG Data EKG Interpreted by: Myself Rate: Normal - EKG Data When Compared to Previous EKG: No Significant Change Assessment & Plan - Assessment and Plan (Free Text) Assessment: Impression: * Decompensated congestive heart failure, acute on chronic, primarily systolic. * Known coronary artery disease status post bypass surgery and multivessel PCI. * Severe LV dysfunction. * Status post ICD implant. * History of diabetes and hypertension * Chronic left bundle branch block pattern. Recommendations: * Continue IV Lasix for now. * Continue rest of cardiac medications unchanged. * Continue sodium and fluid restriction. * Out of bed and ambulation as able. * Will follow.
--- NOTE | 2016-12-25 21:32 | CP.PCM.PN ---
Subjective - Date & Time of Evaluation Date of Evaluation: 12/25/16 Time of Evaluation: 11:00 - Subjective Subjective: This is a 71-year-old woman well-known to us with extremely complex cardiac history including known coronary disease, status post multivessel PCI, prior bypass surgery, severe LV dysfunction and recurrent congestive heart failure who presented to the emergency room yesterday after a fall at home. She became dizzy and fell and suffered multiple contusions. In the emergency room, she became severely short of breath. She was felt to be in congestive heart failure. She was treated with IV diuretics. She felt significantly better. She denied any chest pain. She has had prior ventricular tachycardia and has a defibrillator in place. She had a history of paroxysmal atrial fibrillation as well , d/d with [facility] Objective - Vital Signs/Intake and Output Vital Signs (last 24 hours): Temp Pulse Resp BP Pulse Ox 98.4 F 76 21 107/63 100 12/25/16 18:00 12/25/16 18:00 12/25/16 18:00 12/25/16 18:11 12/25/16 06:00 - Medications Medications: Current Medications Acetaminophen (Tylenol 325mg Tab) 650 mg PO Q4H PRN PRN Reason: Pain, Mild (1-3) Last Admin: 12/25/16 08:12 Dose: 650 mg Arformoterol Tartrate (Brovana) 15 mcg IH [id number] [facility] Last Admin: 12/25/16 19:25 Dose: 15 mcg Aspirin (Ecotrin) 81 mg PO DAILY [facility] Last Admin: 12/25/16 10:31 Dose: 81 mg Atorvastatin Calcium (Lipitor) 20 mg PO DAILY [facility] Last Admin: 12/25/16 10:33 Dose: 20 mg Budesonide (Pulmicort Respules) 0.5 mg IH [id number] [facility] Last Admin: 12/25/16 19:25 Dose: 0.5 mg Bumetanide (Bumex) 0.5 mg PO DAILY [facility] Last Admin: 12/25/16 10:38 Dose: 0.5 mg Carvedilol (Coreg) 12.5 mg PO BID [facility] Last Admin: 12/25/16 18:00 Dose: 12.5 mg Digoxin (Lanoxin) 0.25 mg PO DAILY [facility] Last Admin: 12/25/16 10:32 Dose: 0.25 mg Diltiazem HCl (Cardizem Cd) 180 mg PO DAILY [facility] Last Admin: 12/25/16 10:30 Dose: 180 mg Doxycycline Hyclate (Doryx) 100 mg PO Q12 [facility] PRN Reason: Protocol Last Admin: 12/25/16 14:02 Dose: 100 mg Famotidine (Pepcid) 40 mg PO HS [facility] Last Admin: 12/24/16 21:19 Dose: 40 mg Furosemide (Lasix) 40 mg IVP BID [facility] Last Admin: 12/25/16 18:11 Dose: 40 mg Glipizide (Glucotrol) 10 mg PO DAILY [facility] Last Admin: 12/25/16 10:32 Dose: 10 mg Insulin Detemir (Levemir) 12 unit SC DAILY [facility] Last Admin: 12/25/16 10:32 Dose: 12 unit Insulin Human Regular (Humulin R Low) 0 units SC ACHS [facility] PRN Reason: Protocol Last Admin: 12/25/16 17:23 Dose: 1 units Lisinopril (Zestril) 20 mg PO DAILY [facility] Last Admin: 12/25/16 10:34 Dose: 20 mg Loratadine (Claritin) 10 mg PO DAILY [facility] Last Admin: 12/25/16 10:30 Dose: 10 mg Methylprednisolone (Solu-Medrol) 30 mg IVP Q12 [facility] Nitroglycerin (Nitrostat Sl Tab) 0.4 mg SL PRN PRN PRN Reason: CHEST PAIN Non-Formulary Medication (Biotin [Biotin]) 1 tab PO DAILY [facility] Last Admin: 12/25/16 10:29 Dose: Not Given Non-Formulary Medication (Linagliptin [Tradjenta]) 5 mg PO DAILY [facility] Last Admin: 12/25/16 10:33 Dose: Not Given Non-Formulary Medication (Umeclidinium [place] [Incruse Ellipta]) 62.5 mcg IH DAILY [facility] Last Admin: 12/25/16 10:33 Dose: Not Given Nortriptyline HCl (Pamelor) 10 mg PO TID [facility] Last Admin: 12/25/16 18:07 Dose: 10 mg Ondansetron HCl (Zofran Inj) 4 mg IVP Q4H PRN PRN Reason: Nausea/Vomiting Prasugrel (Effient) 10 mg PO DAILY [facility] Last Admin: 12/25/16 10:31 Dose: 10 mg Sertraline HCl (Zoloft) 50 mg PO HS [facility] Last Admin: 12/24/16 21:20 Dose: 50 mg Tramadol HCl (Ultram) 50 mg PO DAILY PRN PRN Reason: Pain, moderate (4-7) Last Admin: 12/25/16 15:01 Dose: 50 mg Warfarin Sodium (Coumadin) 4 mg PO 1800 [id number] Last Admin: 12/25/16 18:00 Dose: 4 mg - Labs Labs: PT 22.1 Seconds (9.9-11.8) H 12/25/16 07:05 INR 2.05 (0.93-1.08) H 12/25/16 07:05 APTT 42.6 Seconds (23.7-30.8) H 12/24/16 12:45 - Constitutional Appears: Well - Head Exam Head Exam: ATRAUMATIC, NORMAL INSPECTION, NORMOCEPHALIC - Eye Exam Eye Exam: EOMI, Normal appearance, PERRL Pupil Exam: NORMAL ACCOMODATION, PERRL - Neck Exam Neck Exam: Full ROM, Normal Inspection. absent: Lymphadenopathy - Respiratory Exam Respiratory Exam: Decreased Breath Sounds, Prolonged Expiratory Phase - GI/Abdominal Exam GI & Abdominal Exam: Soft, Normal Bowel Sounds. absent: Tenderness - Rectal Exam Rectal Exam: NORMAL INSPECTION - Extremities Exam Extremities Exam: Full ROM, Normal Capillary Refill, Normal Inspection. absent : Joint Swelling, Pedal Edema - Neurological Exam Neurological Exam: Alert, Awake, CN II-XII Intact, Normal Gait, Oriented x3 - Psychiatric Exam Psychiatric exam: Normal Affect, Normal Mood - Skin Skin Exam: Dry, Intact, Normal Color, Warm Assessment and Plan (1) Neck pain Status: Acute (2) Congestive heart failure Status: Acute (3) Dyspnea Status: Acute (4) Atrial fibrillation Status: Acute (5) Bruise of both arms Status: Acute (6) COPD (chronic obstructive pulmonary disease) Status: Acute (7) KAREN (obstructive sleep apnea) Status: Acute (8) Soft tissue injury of back Status: Acute (9) Abdominal pain Status: Acute (10) Chest pain Status: Acute (11) Elevated troponin Status: Acute (12) Fever Status: Acute (13) Pneumonia Status: Acute - Assessment and Plan (Free Text) Assessment: Assessment and Plan (1) COPD (chronic obstructive pulmonary disease) Assessment & Plan: iv and inhale bronchodilators, pulmonaru toilet, solumedrol started Status: Acute (2) KAREN (obstructive sleep apnea) Assessment & Plan: out patient sleep study, avoid sedation Status: Acute (3) Congestive heart failure Assessment & Plan: 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
[2016-12-25] MEDS: MethylPREDNISolone 40 mg Vial IVP SCH (22:09)
[2016-12-26 07:08] LABS: HEMOGLOBIN 9.1 gm/dL (12.0-16.0); MEAN CELL VOLUME 89.7 fL (80.0-105.0); MEAN CORPUSCULAR HEMOGLOBIN 30.1 pg (25.0-35.0); MEAN CORPUSCULAR HGB CONC 33.6 g/dl (31.0-37.0); MEAN PLATELET VOLUME 8.9 fl (7.0-11.0); RBC 3.02 10^6/uL (3.5-6.1); RED CELL DISTRIBUTION WIDTH 15.7 % (11.5-14.5); WHITE BLOOD COUNT 8.9 10^3/ul (4.5-11.0)
[2016-12-26 07:14] LABS: ALB/GLOB RATIO 1.1 (1.1-1.8); ALBUMIN 3.4 g/dL (3.0-4.8); CALCIUM 9.3 mg/dL (8.4-10.5)
[2016-12-26 07:18] LABS: INR 2.69 (0.93-1.08); PROTHROMBIN TIME 29.1 Seconds (9.9-11.8)
[2016-12-26] MEDS: Arformoterol 15 mcg/2 ml Inh Sol IH SCH ×2 (07:27→19:36)
[2016-12-26] MEDS: Budesonide 0.5 mg/2 ml Inhal Susp UD IH SCH ×2 (07:27→19:37)
[2016-12-26] MEDS: Insulin Reg-LOW-Coverage SC SCH ×4 (07:46→22:38)
[2016-12-26] MEDS: BIOTIN PO SCH (10:17)
[2016-12-26] MEDS: diltiaZEM 180 mg/24 Hours CD Cap PO SCH (10:18)
[2016-12-26] MEDS: Digoxin 250 mcg (0.25 mg) Tab PO SCH (10:19)
[2016-12-26] MEDS: Insulin Detemir 100 units/ml Vial (Levemir) SC SCH (10:19)
[2016-12-26] MEDS: Non Formulary Medication (Linagliptin [Tradjenta] 5 MG) PO SCH (10:20)
[2016-12-26] MEDS: MethylPREDNISolone 40 mg Vial IVP SCH ×2 (10:21→21:11)
[2016-12-26] MEDS: Non Formulary Medication (Umeclidinium Bromide [Incruse Ellipta] 62.5 MCG) IH SCH (10:53)
--- NOTE | 2016-12-26 22:34 | CP.PCM.PN ---
Subjective - Date & Time of Evaluation Date of Evaluation: 12/26/16 Time of Evaluation: 10:00 - Subjective Subjective: 71yo female, PMHx of 3x CABG, CHF, HTN, COPD, DM, suspected sleewp apnea, presents to the ED fro evaluation of neck pain s/p mechanical fall sustained 2 days ago. Pt states she fell backwards, injuring her left shoulder, upper back and neck. States the pain from her neck radiates down her back to her lower extremity. She is also complaining of Shortness of breathe that started today that has progressively worsened. She denies any chest pain, head injury, loss of consciousness. Pt offers no additional medical complaints. except sob .Son was sitting on the bed side has h/o load snoring and daytime sleepiness feels little better, stile has cough and SOB, getting pt Objective - Vital Signs/Intake and Output Vital Signs (last 24 hours): Temp Pulse Resp BP Pulse Ox 97.5 F L 77 20 124/67 100 12/26/16 18:00 12/26/16 18:26 12/26/16 18:00 12/26/16 18:00 12/25/16 06:00 Intake and Output: 12/26/16 12/27/16 18:59 06:59 Intake Total 420 Output Total 302 Balance 118 - Medications Medications: Current Medications Acetaminophen (Tylenol 325mg Tab) 650 mg PO Q4H PRN PRN Reason: Pain, Mild (1-3) Last Admin: 12/26/16 00:47 Dose: 650 mg Arformoterol Tartrate (Brovana) 15 mcg IH [id number] [facility] Last Admin: 12/26/16 19:36 Dose: 15 mcg Aspirin (Ecotrin) 81 mg PO DAILY [facility] Last Admin: 12/26/16 10:19 Dose: 81 mg Atorvastatin Calcium (Lipitor) 20 mg PO DAILY [facility] Last Admin: 12/26/16 10:20 Dose: 20 mg Budesonide (Pulmicort Respules) 0.5 mg IH [id number] [facility] Last Admin: 12/26/16 19:37 Dose: 0.5 mg Bumetanide (Bumex) 0.5 mg PO DAILY [facility] Carvedilol (Coreg) 12.5 mg PO BID [facility] Last Admin: 12/26/16 17:25 Dose: 12.5 mg Digoxin (Lanoxin) 0.25 mg PO DAILY [facility] Last Admin: 12/26/16 10:19 Dose: 0.25 mg Diltiazem HCl (Cardizem Cd) 180 mg PO DAILY [facility] Last Admin: 12/26/16 10:18 Dose: 180 mg Doxycycline Hyclate (Doryx) 100 mg PO Q12 [facility] PRN Reason: Protocol Last Admin: 12/26/16 21:11 Dose: 100 mg Famotidine (Pepcid) 40 mg PO HS [facility] Last Admin: 12/26/16 21:11 Dose: 40 mg Ferrous Sulfate (Feosol) 324 mg PO TID [facility] Last Admin: 12/26/16 17:26 Dose: 324 mg Glipizide (Glucotrol) 10 mg PO DAILY [facility] Last Admin: 12/26/16 10:19 Dose: 10 mg Insulin Detemir (Levemir) 12 unit SC DAILY [facility] Last Admin: 12/26/16 10:19 Dose: 12 unit Insulin Human Regular (Humulin R Low) 0 units SC ACHS [facility] PRN Reason: Protocol Last Admin: 12/26/16 17:24 Dose: 5 units Lisinopril (Zestril) 20 mg PO DAILY [facility] Last Admin: 12/26/16 10:21 Dose: 20 mg Loratadine (Claritin) 10 mg PO DAILY [facility] Last Admin: 12/26/16 10:18 Dose: 10 mg Methylprednisolone (Solu-Medrol) 20 mg IVP Q12 [facility] Last Admin: 12/26/16 21:11 Dose: 20 mg Nitroglycerin (Nitrostat Sl Tab) 0.4 mg SL PRN PRN PRN Reason: CHEST PAIN Non-Formulary Medication (Biotin [Biotin]) 1 tab PO DAILY [facility] Last Admin: 12/26/16 10:17 Dose: Not Given Non-Formulary Medication (Linagliptin [Tradjenta]) 5 mg PO DAILY [facility] Last Admin: 12/26/16 10:20 Dose: Not Given Non-Formulary Medication (Umeclidinium [place] [Incruse Ellipta]) 62.5 mcg IH DAILY [facility] Last Admin: 12/26/16 10:53 Dose: Not Given Nortriptyline HCl (Pamelor) 10 mg PO TID [facility] Last Admin: 12/26/16 17:25 Dose: 10 mg Ondansetron HCl (Zofran Inj) 4 mg IVP Q4H PRN PRN Reason: Nausea/Vomiting Prasugrel (Effient) 10 mg PO DAILY [facility] Last Admin: 12/26/16 10:19 Dose: 10 mg Sertraline HCl (Zoloft) 50 mg PO HS [facility] Last Admin: 12/26/16 21:12 Dose: 50 mg Tramadol HCl (Ultram) 50 mg PO DAILY PRN PRN Reason: Pain, moderate (4-7) Last Admin: 12/26/16 21:12 Dose: 50 mg Warfarin Sodium (Coumadin) 4 mg PO 1800 [facility] Last Admin: 12/26/16 17:25 Dose: 4 mg - Labs Labs: 12/26/16 06:45 12/26/16 06:45 PT 29.1 Seconds (9.9-11.8) H 12/26/16 06:45 INR 2.69 (0.93-1.08) H 12/26/16 06:45 APTT 42.6 Seconds (23.7-30.8) H 12/24/16 12:45 - Constitutional Appears: Well - Head Exam Head Exam: ATRAUMATIC, NORMAL INSPECTION, NORMOCEPHALIC - Eye Exam Eye Exam: EOMI, Normal appearance, PERRL Pupil Exam: NORMAL ACCOMODATION, PERRL - ENT Exam ENT Exam: Mucous Membranes Moist, Normal Exam - Neck Exam Neck Exam: Full ROM, Normal Inspection. absent: Lymphadenopathy - Respiratory Exam Respiratory Exam: Clear to Ausculation Bilateral, NORMAL BREATHING PATTERN - Cardiovascular Exam Cardiovascular Exam: REGULAR RHYTHM, +S1, +S2. absent: Murmur - GI/Abdominal Exam GI & Abdominal Exam: Soft, Normal Bowel Sounds. absent: Tenderness - Rectal Exam Rectal Exam: NORMAL INSPECTION - Extremities Exam Extremities Exam: Full ROM, Normal Capillary Refill, Normal Inspection. absent : Joint Swelling, Pedal Edema - Back Exam Back Exam: NORMAL INSPECTION - Neurological Exam Neurological Exam: Alert, Awake, CN II-XII Intact, Normal Gait, Oriented x3 - Psychiatric Exam Psychiatric exam: Normal Affect, Normal Mood - Skin Skin Exam: Dry, Intact, Normal Color, Warm Assessment and Plan (1) Neck pain Assessment & Plan: stable , neuro is on the case Status: Acute (2) Congestive heart failure Assessment & Plan: getting better , cardiology is on the case Status: Acute (3) Dyspnea Assessment & Plan: improving , broadcaster is on the case Status: Acute (4) Atrial fibrillation Assessment & Plan: getting comedine . checking inr Status: Acute (5) Bruise of both arms Assessment & Plan: s/p fall Status: Acute (6) COPD (chronic obstructive pulmonary disease) Assessment & Plan: getting due neb , broadcaster is on the case Status: Acute (7) KAREN (obstructive sleep apnea) Status: Acute (8) Soft tissue injury of back Status: Acute (9) Abdominal pain Status: Acute (10) Chest pain Status: Acute (11) Elevated troponin Status: Acute (12) Fever Status: Acute (13) Pneumonia Status: Acute - Assessment and Plan (Free Text) Assessment: * Decompensated congestive heart failure, acute on chronic, primarily systolic. * Known coronary artery disease status post bypass surgery and multivessel PCI. * Severe LV dysfunction. * Status post ICD implant. * History of diabetes and hypertension * Chronic left bundle branch block pattern. Recommendations: * Continue IV Lasix for now. * Continue rest of cardiac medications unchanged. * Continue sodium and fluid restriction. * Out of bed and ambulation as able. * Will follow. Plan: trying to get tcu . oob pt ot . gi . dvt prophylaxis
[2016-12-27 06:38] LABS: PROTHROMBIN TIME 50.2 Seconds (9.9-11.8)
[2016-12-27 06:40] LABS: INR 4.65 (0.93-1.08)
--- NOTE | 2016-12-27 07:02 | CP.PCM.PN ---
Subjective - Date & Time of Evaluation Date of Evaluation: 12/26/16 Time of Evaluation: 07:00 - Subjective Subjective: Stable on 2R. No CP or SOB. No dizziness, vertigo V/S noted. RSR PE: Lungs: clear Cor.: S1S2, systolic murmur Abd.: soft Ext: no edema. UE ecchymoses noted Neuro.: alert Labs 12/26 noted. INR= 2.69 Objective - Vital Signs/Intake and Output Vital Signs (last 24 hours): Temp Pulse Resp BP Pulse Ox 97.3 F L 86 20 125/66 100 12/26/16 06:00 12/26/16 06:00 12/26/16 06:00 12/26/16 06:00 12/25/16 06:00 Intake and Output: 12/26/16 12/26/16 06:59 18:59 Intake Total 540 Output Total 600 300 Balance -60 -300 - Medications Medications: Current Medications Acetaminophen (Tylenol 325mg Tab) 650 mg PO Q4H PRN PRN Reason: Pain, Mild (1-3) Last Admin: 12/26/16 00:47 Dose: 650 mg Arformoterol Tartrate (Brovana) 15 mcg IH [id number] [facility] Last Admin: 12/26/16 07:27 Dose: 15 mcg Aspirin (Ecotrin) 81 mg PO DAILY [facility] Last Admin: 12/25/16 10:31 Dose: 81 mg Atorvastatin Calcium (Lipitor) 20 mg PO DAILY [facility] Last Admin: 12/25/16 10:33 Dose: 20 mg Budesonide (Pulmicort Respules) 0.5 mg IH [id number] [facility] Last Admin: 12/26/16 07:27 Dose: 0.5 mg Bumetanide (Bumex) 0.5 mg PO DAILY [facility] Last Admin: 12/25/16 10:38 Dose: 0.5 mg Carvedilol (Coreg) 12.5 mg PO BID [facility] Last Admin: 12/25/16 18:00 Dose: 12.5 mg Digoxin (Lanoxin) 0.25 mg PO DAILY [facility] Last Admin: 12/25/16 10:32 Dose: 0.25 mg Diltiazem HCl (Cardizem Cd) 180 mg PO DAILY [facility] Last Admin: 12/25/16 10:30 Dose: 180 mg Doxycycline Hyclate (Doryx) 100 mg PO Q12 [facility] PRN Reason: Protocol Last Admin: 12/25/16 22:08 Dose: 100 mg Famotidine (Pepcid) 40 mg PO HS [facility] Last Admin: 12/25/16 22:08 Dose: 40 mg Furosemide (Lasix) 40 mg IVP BID [facility] Last Admin: 12/25/16 18:11 Dose: 40 mg Glipizide (Glucotrol) 10 mg PO DAILY [facility] Last Admin: 12/25/16 10:32 Dose: 10 mg Insulin Detemir (Levemir) 12 unit SC DAILY [facility] Last Admin: 12/25/16 10:32 Dose: 12 unit Insulin Human Regular (Humulin R Low) 0 units SC [facility] PRN Reason: Protocol Last Admin: 12/26/16 07:46 Dose: 2 units Lisinopril (Zestril) 20 mg PO DAILY [facility] Last Admin: 12/25/16 10:34 Dose: 20 mg Loratadine (Claritin) 10 mg PO DAILY [facility] Last Admin: 12/25/16 10:30 Dose: 10 mg Methylprednisolone (Solu-Medrol) 30 mg IVP Q12 [facility] Last Admin: 12/25/16 22:09 Dose: 30 mg Nitroglycerin (Nitrostat Sl Tab) 0.4 mg SL PRN PRN PRN Reason: CHEST PAIN Non-Formulary Medication (Biotin [Biotin]) 1 tab PO DAILY [facility] Last Admin: 12/25/16 10:29 Dose: Not Given Non-Formulary Medication (Linagliptin [Tradjenta]) 5 mg PO DAILY [facility] Last Admin: 12/25/16 10:33 Dose: Not Given Non-Formulary Medication (Umeclidinium [place] [Incruse Ellipta]) 62.5 mcg IH DAILY [facility] Last Admin: 12/25/16 10:33 Dose: Not Given Nortriptyline HCl (Pamelor) 10 mg PO TID [facility] Last Admin: 12/25/16 18:07 Dose: 10 mg Ondansetron HCl (Zofran Inj) 4 mg IVP Q4H PRN PRN Reason: Nausea/Vomiting Prasugrel (Effient) 10 mg PO DAILY [facility] Last Admin: 12/25/16 10:31 Dose: 10 mg Sertraline HCl (Zoloft) 50 mg PO HS [facility] Last Admin: 12/25/16 22:08 Dose: 50 mg Tramadol HCl (Ultram) 50 mg PO DAILY PRN PRN Reason: Pain, moderate (4-7) Last Admin: 12/25/16 15:01 Dose: 50 mg Warfarin Sodium (Coumadin) 4 mg PO 1800 [facility] Last Admin: 12/25/16 18:00 Dose: 4 mg - Labs Labs: 12/26/16 06:45 12/26/16 06:45 PT 29.1 Seconds (9.9-11.8) H 12/26/16 06:45 INR 2.69 (0.93-1.08) H 12/26/16 06:45 APTT 42.6 Seconds (23.7-30.8) H 12/24/16 12:45 Assessment and Plan - Assessment and Plan (Free Text) Assessment: Fall at home, probably mechanical Dizzy spell, no shock from ICD reported CAD, recent PCI RCA, remote PCIs and CABG Severe LVD CHF COPD Diabetes HBP PAF [place] Plan: per Matthieu Lebron and Harvey Will arrange ICD interrogation OOB with assistance IV lasix > PO Bumex Will follow
[2016-12-27] MEDS: Budesonide 0.5 mg/2 ml Inhal Susp UD IH SCH ×2 (07:39→20:01)
[2016-12-27] MEDS: Arformoterol 15 mcg/2 ml Inh Sol IH SCH ×2 (07:41→20:01)
--- NOTE | 2016-12-27 07:41 | CP.PCM.PN ---
Subjective - Date & Time of Evaluation Date of Evaluation: 12/27/16 Time of Evaluation: 07:00 - Subjective Subjective: Stable on 2R. No CP or SOB. 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 She has strict requirement b/o prior bowel resection. She has not eaten much and is starting to get cramping. She wants to go home. V/S noted. RSR. No postural changes PE: Lungs: clear Cor.: S1S2, systolic murmur Abd.: soft Ext: no edema. UE ecchymoses noted Neuro.: alert Labs: INR today = 4.65 ICD check: No arrhythmia discovered. Nl. Fx. reported. CT Head and Cerv. Spine noted. Objective - Vital Signs/Intake and Output Vital Signs (last 24 hours): Temp Pulse Resp BP Pulse Ox 97.6 F 77 19 132/71 91 L 12/27/16 06:00 12/27/16 06:00 12/27/16 06:00 12/27/16 06:00 12/27/16 06:00 Intake and Output: 12/27/16 12/27/16 06:59 18:59 Intake Total 960 Output Total 750 Balance 210 - Medications Medications: Current Medications Acetaminophen (Tylenol 325mg Tab) 650 mg PO Q4H PRN PRN Reason: Pain, Mild (1-3) Last Admin: 12/26/16 00:47 Dose: 650 mg Arformoterol Tartrate (Brovana) 15 mcg IH [id number] [facility] Last Admin: 12/26/16 19:36 Dose: 15 mcg Aspirin (Ecotrin) 81 mg PO DAILY [facility] Last Admin: 12/26/16 10:19 Dose: 81 mg Atorvastatin Calcium (Lipitor) 20 mg PO DAILY [facility] Last Admin: 12/26/16 10:20 Dose: 20 mg Budesonide (Pulmicort Respules) 0.5 mg IH [id number] [facility] Last Admin: 12/26/16 19:37 Dose: 0.5 mg Bumetanide (Bumex) 0.5 mg PO DAILY [facility] Carvedilol (Coreg) 12.5 mg PO BID [facility] Last Admin: 12/26/16 17:25 Dose: 12.5 mg Digoxin (Lanoxin) 0.25 mg PO DAILY [facility] Last Admin: 12/26/16 10:19 Dose: 0.25 mg Diltiazem HCl (Cardizem Cd) 180 mg PO DAILY [facility] Last Admin: 12/26/16 10:18 Dose: 180 mg Doxycycline Hyclate (Doryx) 100 mg PO Q12 [facility] PRN Reason: Protocol Last Admin: 12/26/16 21:11 Dose: 100 mg Famotidine (Pepcid) 40 mg PO HS [facility] Last Admin: 12/26/16 21:11 Dose: 40 mg Ferrous Sulfate (Feosol) 324 mg PO TID [facility] Last Admin: 12/26/16 17:26 Dose: 324 mg Glipizide (Glucotrol) 10 mg PO DAILY [facility] Last Admin: 12/26/16 10:19 Dose: 10 mg Insulin Detemir (Levemir) 12 unit SC DAILY [facility] Last Admin: 12/26/16 10:19 Dose: 12 unit Insulin Human Regular (Humulin R Low) 0 units SC ACHS [facility] PRN Reason: Protocol Last Admin: 12/26/16 22:38 Dose: 2 units Lisinopril (Zestril) 20 mg PO DAILY [facility] Last Admin: 12/26/16 10:21 Dose: 20 mg Loratadine (Claritin) 10 mg PO DAILY [facility] Last Admin: 12/26/16 10:18 Dose: 10 mg Methylprednisolone (Solu-Medrol) 20 mg IVP Q12 [facility] Last Admin: 12/26/16 21:11 Dose: 20 mg Nitroglycerin (Nitrostat Sl Tab) 0.4 mg SL PRN PRN PRN Reason: CHEST PAIN Non-Formulary Medication (Biotin [Biotin]) 1 tab PO DAILY [facility] Last Admin: 12/26/16 10:17 Dose: Not Given Non-Formulary Medication (Linagliptin [Tradjenta]) 5 mg PO DAILY [facility] Last Admin: 12/26/16 10:20 Dose: Not Given Non-Formulary Medication (Umeclidinium [place] [Incruse Ellipta]) 62.5 mcg IH DAILY [facility] Last Admin: 12/26/16 10:53 Dose: Not Given Nortriptyline HCl (Pamelor) 10 mg PO TID [facility] Last Admin: 12/26/16 17:25 Dose: 10 mg Ondansetron HCl (Zofran Inj) 4 mg IVP Q4H PRN PRN Reason: Nausea/Vomiting Prasugrel (Effient) 10 mg PO DAILY [facility] Last Admin: 12/26/16 10:19 Dose: 10 mg Sertraline HCl (Zoloft) 50 mg PO HS [facility] Last Admin: 12/26/16 21:12 Dose: 50 mg Tramadol HCl (Ultram) 50 mg PO DAILY PRN PRN Reason: Pain, moderate (4-7) Last Admin: 12/26/16 21:12 Dose: 50 mg Warfarin Sodium (Coumadin) 4 mg PO 1800 [facility] Last Admin: 12/26/16 17:25 Dose: 4 mg - Labs Labs: 12/26/16 06:45 12/26/16 06:45 PT 50.2 Seconds (9.9-11.8) H* 12/27/16 05:25 INR 4.65 (0.93-1.08) H* 12/27/16 05:25 APTT 42.6 Seconds (23.7-30.8) H 12/24/16 12:45 Assessment and Plan - Assessment and Plan (Free Text) Assessment: Fall at home, probably mechanical Dizzy spell, no shock from ICD reported, nl. interrogation. CAD, recent PCI RCA, remote PCIs and CABG Severe LVD CHF COPD Diabetes HBP PAF [place] Plan: per Matthieu Lebron and Harvey Hold warfarin. If D/C home today she will hold warfarin today, Sat. and Sun. and resume Friday. Office f/u Fri. with INR planned. OOB with assistance
[2016-12-27] MEDS: Insulin Reg-LOW-Coverage SC SCH ×4 (07:59→22:43)
[2016-12-27] MEDS: BIOTIN PO SCH (09:40)
[2016-12-27] MEDS: Non Formulary Medication (Linagliptin [Tradjenta] 5 MG) PO SCH (09:41)
[2016-12-27] MEDS: Non Formulary Medication (Umeclidinium Bromide [Incruse Ellipta] 62.5 MCG) IH SCH (09:42)
[2016-12-27] MEDS: MethylPREDNISolone 40 mg Vial IVP SCH ×2 (09:50→21:37)
[2016-12-27] MEDS: Insulin Detemir 100 units/ml Vial (Levemir) SC SCH (09:54)
[2016-12-27] MEDS: Digoxin 250 mcg (0.25 mg) Tab PO SCH (09:54)
[2016-12-27] MEDS: diltiaZEM 180 mg/24 Hours CD Cap PO SCH (10:45)
--- NOTE | 2016-12-27 16:15 | PN ---
DATE: 12/26/2016 SUBJECTIVE: She is lying in the bed at 45 degrees, feels better, decreased cough, decreased shortness of breath, decreased muscular-type chest pain. No nausea, no vomiting, no diarrhea, and no leg swelling. OBJECTIVE: GENERAL: No acute distress. VITAL SIGNS: Temperature is 98, heart rate is 73, respiratory rate is 20, blood pressure 122/71. HEENT: Moist mucous membrane. . Mallampati score is IV. NECK: Supple. No JVD. LUNGS: Scattered rhonchi, few wheezing. HEART: S1 and S2. ABDOMEN: Soft and nontender. No organomegaly. EXTREMITIES: There is no edema. NEUROLOGIC: Awake and alert. Follows simple command. Still has multiple bruises on the upper extremity and upper back. MEDICATIONS: She is on Biotin one tablet daily, Brovana 15 mcg inhaled twice a day, Bumex 0.5 mg daily, Cardizem CD 180 mg daily, Claritin 10 mg daily, Coreg 12.5 mg twice a day, Coumadin 4 mg given, doxycycline 100 mg twice a day, Ecotrin 81 mg daily, Effient 10 mg daily, ferrous sulfate 324 mg three times a day, glipizide 10 mg daily, insulin coverage, digoxin 0.25 mg daily, Levemir 12 units subcu daily, Tradjenta 5 mg daily, Lipitor 12 mg daily, Nitrostat 0.4 mg on p.r.n. basis, Pamelor 10 mg three times a day, Pepcid 40 mg daily, Pulmicort inhaled twice a day, Solu-Medrol 30 mg q.12 hours, Tylenol p.r.n., Ultram on p.r.n. basis, Zestril 20 mg daily, Zofran on p.r.n. basis, Zoloft 50 mg at bedtime. LABORATORY DATA: Shows hemoglobin 9.1, hematocrit 27.1, WBC 8.9, platelets are 320, INR is 2.69 today. Sodium 133, potassium 4, chloride is 98, bicarbonate 22, BUN 30, creatinine 1.1, glucose 226, calcium 9.3, AST 36, ALT 46, alkaline phosphatase is 120, albumin is 3.4. IMPRESSION AND PLAN: Status post fall with multiple skin bruises, coronary artery disease, history of coronary bypass surgery, hypertension, chronic lung disease, diabetes, may have sleep apnea syndrome. We will decrease Solu-Medrol to 20 q.12 hours. Continue antibiotics. Order battery chair. Fall precaution. Outpatient PFT. The patient is refusing to get sleep study done. Get therapy involved. We will follow with you. Rosina Gabriel MD
--- NOTE | 2016-12-27 19:14 | CP.PCM.PN ---
Subjective - Date & Time of Evaluation Date of Evaluation: 12/27/16 Time of Evaluation: 10:00 - Subjective Subjective: 71yo female, PMHx of 3x CABG, CHF, HTN, COPD, DM, suspected sleewp apnea, presents to the ED fro evaluation of neck pain s/p mechanical fall sustained 2 days ago. Pt states she fell backwards, injuring her left shoulder, upper back and neck. States the pain from her neck radiates down her back to her lower extremity. She is also complaining of Shortness of breathe that started today that has progressively worsened. She denies any chest pain, head injury, loss of consciousness. Pt offers no additional medical complaints. except sob . h/o load snoring and feels little better, stiana has cough and SOB getting pt , feeling better with pt . want to go to TCU Objective - Vital Signs/Intake and Output Vital Signs (last 24 hours): Temp Pulse Resp BP Pulse Ox 97.7 F 70 20 133/74 91 L 12/27/16 18:00 12/27/16 18:00 12/27/16 18:00 12/27/16 18:00 12/27/16 06:00 - Medications Medications: Current Medications Acetaminophen (Tylenol 325mg Tab) 650 mg PO Q4H PRN PRN Reason: Pain, Mild (1-3) Last Admin: 12/26/16 00:47 Dose: 650 mg Arformoterol Tartrate (Brovana) 15 mcg IH [id number] [facility] Last Admin: 12/27/16 07:41 Dose: 15 mcg Aspirin (Ecotrin) 81 mg PO DAILY [facility] Last Admin: 12/27/16 09:53 Dose: 81 mg Atorvastatin Calcium (Lipitor) 20 mg PO DAILY [facility] Last Admin: 12/27/16 09:50 Dose: 20 mg Budesonide (Pulmicort Respules) 0.5 mg IH [id number] [facility] Last Admin: 12/27/16 07:39 Dose: 0.5 mg Bumetanide (Bumex) 0.5 mg PO DAILY [facility] Last Admin: 12/27/16 09:53 Dose: 0.5 mg Carvedilol (Coreg) 12.5 mg PO BID [facility] Last Admin: 12/27/16 17:52 Dose: 12.5 mg Digoxin (Lanoxin) 0.25 mg PO DAILY [facility] Last Admin: 12/27/16 09:54 Dose: 0.25 mg Diltiazem HCl (Cardizem Cd) 180 mg PO DAILY [facility] Last Admin: 12/27/16 10:45 Dose: 180 mg Docusate Sodium (Colace) 100 mg PO BID [facility] Last Admin: 12/27/16 17:51 Dose: 100 mg Doxycycline Hyclate (Doryx) 100 mg PO Q12 [facility] PRN Reason: Protocol Last Admin: 12/27/16 09:52 Dose: 100 mg Famotidine (Pepcid) 40 mg PO HS [facility] Last Admin: 12/26/16 21:11 Dose: 40 mg Ferrous Sulfate (Feosol) 324 mg PO TID [facility] Last Admin: 12/27/16 17:51 Dose: 324 mg Glipizide (Glucotrol) 10 mg PO DAILY [facility] Last Admin: 12/27/16 09:50 Dose: 10 mg Insulin Detemir (Levemir) 12 unit SC DAILY [facility] Last Admin: 12/27/16 09:54 Dose: 12 unit Insulin Human Regular (Humulin R Low) 0 units SC ACHS [facility] PRN Reason: Protocol Last Admin: 12/27/16 17:51 Dose: 2 units Lisinopril (Zestril) 20 mg PO DAILY [facility] Last Admin: 12/27/16 09:52 Dose: 20 mg Loratadine (Claritin) 10 mg PO DAILY [facility] Last Admin: 12/27/16 09:54 Dose: 10 mg Methylprednisolone (Solu-Medrol) 20 mg IVP Q12 [facility] Last Admin: 12/27/16 09:50 Dose: 20 mg Nitroglycerin (Nitrostat Sl Tab) 0.4 mg SL PRN PRN PRN Reason: CHEST PAIN Non-Formulary Medication (Biotin [Biotin]) 1 tab PO DAILY [facility] Last Admin: 12/27/16 09:40 Dose: Not Given Non-Formulary Medication (Linagliptin [Tradjenta]) 5 mg PO DAILY [facility] Last Admin: 12/27/16 09:41 Dose: Not Given Non-Formulary Medication (Umeclidinium [place] [Incruse Ellipta]) 62.5 mcg IH DAILY [facility] Last Admin: 12/27/16 09:42 Dose: Not Given Nortriptyline HCl (Pamelor) 10 mg PO TID [facility] Last Admin: 12/27/16 17:51 Dose: 10 mg Ondansetron HCl (Zofran Inj) 4 mg IVP Q4H PRN PRN Reason: Nausea/Vomiting Prasugrel (Effient) 10 mg PO DAILY [facility] Last Admin: 12/27/16 09:54 Dose: 10 mg Sertraline HCl (Zoloft) 50 mg PO HS [facility] Last Admin: 12/26/16 21:12 Dose: 50 mg Tramadol HCl (Ultram) 50 mg PO DAILY PRN PRN Reason: Pain, moderate (4-7) Last Admin: 12/26/16 21:12 Dose: 50 mg Warfarin Sodium (Coumadin) 4 mg PO 1800 [facility] Last Admin: 12/26/16 17:25 Dose: 4 mg - Labs Labs: 12/26/16 06:45 12/26/16 06:45 PT 50.2 Seconds (9.9-11.8) H* 12/27/16 05:25 INR 4.65 (0.93-1.08) H* 12/27/16 05:25 APTT 42.6 Seconds (23.7-30.8) H 12/24/16 12:45 - Constitutional Appears: Well - Head Exam Head Exam: ATRAUMATIC, NORMAL INSPECTION, NORMOCEPHALIC - Eye Exam Eye Exam: EOMI, Normal appearance, PERRL Pupil Exam: NORMAL ACCOMODATION, PERRL - ENT Exam ENT Exam: Mucous Membranes Moist, Normal Exam - Neck Exam Neck Exam: Full ROM, Normal Inspection. absent: Lymphadenopathy - Respiratory Exam Respiratory Exam: Prolonged Expiratory Phase, Rhonchi, Wheezes - Cardiovascular Exam Cardiovascular Exam: REGULAR RHYTHM, +S1, +S2. absent: Murmur - GI/Abdominal Exam GI & Abdominal Exam: Soft, Normal Bowel Sounds. absent: Tenderness - Neurological Exam Neurological Exam: Alert, Awake, CN II-XII Intact, Normal Gait, Oriented x3 - Psychiatric Exam Psychiatric exam: Normal Affect, Normal Mood - Skin Skin Exam: Dry, Intact, Normal Color, Warm Assessment and Plan (1) Neck pain Assessment & Plan: getting better , was due to mechanicle trauma Status: Acute (2) Congestive heart failure Assessment & Plan: hshe is on lasix and cardiology is on the case Status: Acute (3) Dyspnea Assessment & Plan: getting better , pulmonary is on the case Status: Acute (4) Atrial fibrillation Assessment & Plan: getting comedine , inr heigh , holding comedine Status: Acute (5) Bruise of both arms Assessment & Plan: improving slowly . s/p fall Status: Acute (6) COPD (chronic obstructive pulmonary disease) Assessment & Plan: sob is getting better Status: Acute (7) KAREN (obstructive sleep apnea) Assessment & Plan: stable ,pt refussing bipap Status: Acute (8) Soft tissue injury of back Assessment & Plan: better Status: Acute (9) Abdominal pain Assessment & Plan: better Status: Acute (10) Chest pain Status: Acute (11) Elevated troponin Status: Acute (12) Fever Status: Acute (13) Pneumonia Status: Acute - Assessment and Plan (Free Text) Assessment: Fall at home, probably mechanical Dizzy spell, no shock from ICD reported, nl. interrogation. CAD, recent PCI RCA, remote PCIs and CABG Severe LVD CHF COPD Diabetes HBP PAF [place] Plan: Hold comedine today, Sat. and Sun. and resume Friday. with INR planned. OOB with assistance, cont. pt , trying to get TCU . PT Agrees
[2016-12-28 07:21] LABS: PROTHROMBIN TIME 38.7 Seconds (9.9-11.8)
[2016-12-28 07:26] LABS: INR 3.58 (0.93-1.08)
[2016-12-28] MEDS: Arformoterol 15 mcg/2 ml Inh Sol IH SCH (07:54)
[2016-12-28] MEDS: Budesonide 0.5 mg/2 ml Inhal Susp UD IH SCH (07:54)
[2016-12-28] MEDS: Insulin Reg-LOW-Coverage SC SCH ×2 (08:25→12:15)
--- NOTE | 2016-12-28 08:50 | PN ---
DATE: 12/27/2016 REFERRING PHYSICIAN: Dr. Lebron. SUBJECTIVE: She is lying in the bed at 45 degrees. No headache. No tinnitus, mild cough. Shortness of breath is improved. No nausea, vomiting, diarrhea, leg pain or leg swelling. Refused to use CPAP/BiPAP. OBJECTIVELY: GENERAL: No acute distress. VITAL SIGNS: Temp is 98, heart rate is 70, respiratory rate is 20, blood pressure is 133/74, pulse ox 91% on nasal cannula. HEENT: Moist mucous membranes. Crowded airway, Mallampati class IV. NECK: Supple, no JVD. LUNGS: Prolonged expiratory phase. No wheezing. HEART: S1 and S2. ABDOMEN: Soft, nontender, no organomegaly. EXTREMITIES: There is no edema. NEUROLOGICAL: Awake, alert. Follows simple commands. MEDICATIONS: She is on: 1. Biotin 1 tab daily. 2. Brovana 15 mcg inhaled twice a day. 3. Bumex 0.5 mg daily. 4. Cardizem CD 180 mg daily. 5. Claritin 10 mg daily. 6. Colace 100 mg twice a day. 7. Coreg 12.5 mg twice a day. 8. Coumadin 4 mg daily. 9. Doxycycline 100 mg twice day. 10. Aspirin 81 mg daily. 11. Effient 10 mg once a day. 12. Ferrous sulfate 325 mg 3 times a day. 13. Glipizide 10 mg daily. 14. Digoxin 0.25 mg daily. 15. Levemir 12 units subcu daily. 16. Tradjenta 5 mg daily. 17. Lipitor 20 mg daily. 18. Nitrostat p.r.n. basis. 19. Nortriptyline 10 mg 3 times a day. 20. Pepcid 40 mg daily. 21. Pulmicort inhaled twice a day. 22. Solu-Medrol 20 mg q. 12 hours. 23. Tylenol p.r.n. 24. Ultram p.r.n. 25. Incruse Ellipta 62.5 one puff daily. 26. Zestril 20 mg daily. 27. Zofran p.r.n. 28. Zoloft 50 mg daily. LABORATORY DATA: Reviewed, INR yesterday was 4.65, blood sugar 248. IMPRESSION AND PLAN: 1. Status post fall with multiple skin bruises. 2. Coronary artery disease. 3. History of coronary bypass surgery. 4. Hypertension. 5. Chronic lung disease. 6. Diabetes. 7. 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 Agree with holding Coumadin today. She may need about 2 mg of Coumadin once INR is at therapeutic range. Continue Solu-Medrol. Continue antibiotics. Gastric prophylaxis. Out of bed to chair. Outpatient PFT. Sleep apnea precaution, careful with sedation. We will follow with you. Rosina Gabriel MD [facility] # [id number]
[2016-12-28] MEDS: diltiaZEM 180 mg/24 Hours CD Cap PO SCH (10:37)
[2016-12-28] MEDS: Digoxin 250 mcg (0.25 mg) Tab PO SCH (10:39)
[2016-12-28] MEDS: Insulin Detemir 100 units/ml Vial (Levemir) SC SCH (10:40)
[2016-12-28] MEDS: MethylPREDNISolone 40 mg Vial IVP SCH (10:41)
[2016-12-28] MEDS: Non Formulary Medication (Linagliptin [Tradjenta] 5 MG) PO SCH (10:41)
[2016-12-28] MEDS: BIOTIN PO SCH (10:41)
[2016-12-28] MEDS: Non Formulary Medication (Umeclidinium Bromide [Incruse Ellipta] 62.5 MCG) IH SCH (10:42)
[2016-12-28 12:20] VITALS: O2SAT 100
[2016-12-28 12:44] VITALS: PULSE 63
[2016-12-28 13:13] VITALS: BP 120/75; PULSE 66; RESP 16; TEMP 97.9
--- NOTE | 2016-12-28 16:18 | CP.PCM.DIS ---
Provider - Provider Date of Admission: 12/25/16 15:27 Attending physician: Tanisha Barlow MD Time Spent in preparation of Discharge (in minutes): 60 Diagnosis - Discharge Diagnosis (1) Neck pain Status: Acute (2) Congestive heart failure Status: Acute (3) Dyspnea Status: Acute (4) Atrial fibrillation Status: Acute (5) Bruise of both arms Status: Acute (6) COPD (chronic obstructive pulmonary disease) Status: Acute (7) KAREN (obstructive sleep apnea) Status: Acute (8) Soft tissue injury of back Status: Acute (9) Abdominal pain Status: Acute (10) Chest pain Status: Acute (11) Elevated troponin Status: Acute (12) Fever Status: Acute (13) Pneumonia Status: Acute Hospital Course - Lab Results Lab Results: Most Recent Lab Values WBC 8.9 10^3/ul (4.5-11.0) 12/26/16 06:45 RBC 3.02 10^6/uL (3.5-6.1) L 12/26/16 06:45 Hgb 9.1 gm/dL (12.0-16.0) L 12/26/16 06:45 Hct 27.1 % (36.0-48.0) L 12/26/16 06:45 MCV 89.7 fL (80.0-105.0) 12/26/16 06:45 MCH 30.1 pg (25.0-35.0) 12/26/16 06:45 MCHC 33.6 g/dl (31.0-37.0) 12/26/16 06:45 RDW 15.7 % (11.5-14.5) H 12/26/16 06:45 Plt Count 320 10^3/uL (120.0-450.0) 12/26/16 06:45 MPV 8.9 fl (7.0-11.0) 12/26/16 06:45 Gran % 87.3 % (50.0-68.0) H 12/24/16 12:45 Lymph % (Auto) 5.2 % (22.0-35.0) L 12/24/16 12:45 [place] % (Auto) 5.5 % (1.0-6.0) 12/24/16 12:45 Eos % (Auto) 1.7 % (1.5-5.0) 12/24/16 12:45 Baso % (Auto) 0.3 % (0.0-3.0) 12/24/16 12:45 Gran # 9.96 (1.4-6.5) H 12/24/16 12:45 Lymph # 0.6 (1.2-3.4) L 12/24/16 12:45 [place] # 0.6 (0.1-0.6) 12/24/16 12:45 Eos # 0.2 (0.0-0.7) 12/24/16 12:45 Baso # 0.03 K/mm3 (0.0-2.0) 12/24/16 12:45 PT 38.7 Seconds (9.9-11.8) H* 12/28/16 07:04 INR 3.58 (0.93-1.08) H* 12/28/16 07:04 APTT 42.6 Seconds (23.7-30.8) H 12/24/16 12:45 Sodium 133 mmol/L (132-148) 12/26/16 06:45 Potassium 4.0 mmol/L (3.6-5.0) 12/26/16 06:45 Chloride 98 mmol/L (98-107) 12/26/16 06:45 Carbon Dioxide 22 mmol/L (21-33) 12/26/16 06:45 Anion Gap 17 (10-20) 12/26/16 06:45 BUN 30 mg/dL (7-21) H 12/26/16 06:45 Creatinine 1.1 mg/dL (0.5-1.4) 12/26/16 06:45 Est GFR ( Amer) 59 12/26/16 06:45 Est GFR (Non-Af Amer) 49 12/26/16 06:45 POC Glucose (mg/dL) 202 mg/dL (65-110) H 12/28/16 07:57 Random Glucose 226 mg/dL (70-110) H 12/26/16 06:45 Hemoglobin A1c 8.1 % (4.2-6.5) H 12/24/16 22:45 Calcium 9.3 mg/dL (8.4-10.5) 12/26/16 06:45 Iron 19 ug/dL (45-180) L 12/25/16 07:05 TIBC 342 ug/dL (265-497) 12/24/16 22:45 % Saturation 7 % (20-55) L 12/24/16 22:45 Total Bilirubin 1.4 mg/dL (0.2-1.3) H 12/26/16 06:45 AST 36 U/L (15-39) 12/26/16 06:45 ALT 46 U/L (7-56) 12/26/16 06:45 Alkaline Phosphatase 120 U/L (38-133) 12/26/16 06:45 Lactate Dehydrogenase 319 U/L (333-699) L 12/24/16 22:45 Total Creatine Kinase < 20 U/L (35-230) L 12/24/16 22:45 Troponin I 0.11 ng/mL D 12/24/16 22:45 NT-Pro-B Natriuret Pep 3990 pg/mL (0-450) H 12/24/16 12:45 Total Protein 6.5 g/dL (5.8-8.3) 12/26/16 06:45 Albumin 3.4 g/dL (3.0-4.8) 12/26/16 06:45 Globulin 3.1 gm/dL 12/26/16 06:45 Albumin/Globulin Ratio 1.1 (1.1-1.8) 12/26/16 06:45 Triglycerides 170 mg/dL (35-160) H 12/24/16 22:45 Cholesterol 141 mg/dL (130-200) 12/24/16 22:45 LDL Cholesterol Direct 75 mg/dL (0-129) 12/24/16 22:45 HDL Cholesterol 33 mg/dL (29-60) 12/24/16 22:45 Vitamin B12 467 pg/mL (239-931) 12/24/16 22:45 Folate > 20.0 ng/mL 12/24/16 22:45 TSH 3rd Generation 0.72 mIU/mL (0.46-4.68) 12/25/16 07:00 Urine Color Yellow (YELLOW) 12/25/16 12:50 Urine Appearance Clear (CLEAR) 12/25/16 12:50 Urine pH 5.5 (4.7-8.0) 12/25/16 12:50 Ur Specific [place] 1.025 (1.005-1.035) 12/25/16 12:50 Urine Protein Negative mg/dL (<30 mg/dL) 12/25/16 12:50 Urine Glucose (UA) Negative mg/dL (NEGATIVE) 12/25/16 12:50 Urine Ketones Negative mg/dL (NEGATIVE) 12/25/16 12:50 Urine Blood Negative (NEGATIVE) 12/25/16 12:50 Urine Nitrate Negative (NEGATIVE) 12/25/16 12:50 Urine Bilirubin Negative (NEGATIVE) 12/25/16 12:50 Urine Urobilinogen 1.0 E.U./dL (<1 E.U./dL) H 12/25/16 12:50 Ur Leukocyte Esterase Negative Luis/uL (NEGATIVE) 12/25/16 12:50 Digoxin 0.5 ng/mL (0.8-2.0) L 12/26/16 09:00 - Hospital Course Hospital Course: History of Present Illness: The patient is a 71yo female, PMHx of 3x CABG, CHF, HTN, COPD, DM, presents to the ED fro evaluation of neck pain s/p mechanical fall sustained 2 days ago. Pt states she was carrying a box of [employer] ornaments and fell backwards, injuring her left shoulder and neck. States the pain from her neck radiates down her back to her lower extremity. She denies any numbness but does report general weakness and difficulty walking. She is also complaining of Shortness of breathe that started today that has progressively worsened. She denies any chest pain, head injury, loss of consciousness. Pt offers no additional medical complaints. except sob .s0n was sitting on the bed side , all ouestions answered A/P Fall at home, probably mechanical Dizzy spell, no shock from ICD reported, nl. interrogation. CAD, recent PCI RCA, remote PCIs and CABG Severe LVD CHF COPD Diabetes HBP PAF VT Plan: dc to TCU for cont. of care and pt Holding warfarin. INR every day , OOB with assistance fall precaution , gi pro. Discharge Exam - Head Exam Head Exam: ATRAUMATIC, NORMAL INSPECTION, NORMOCEPHALIC - Eye Exam Eye Exam: EOMI, Normal appearance, PERRL Pupil Exam: NORMAL ACCOMODATION, PERRL - GI/Abdominal Exam GI & Abdominal Exam: Normal Bowel Sounds - Rectal Exam Rectal Exam: NORMAL INSPECTION - Exam Exam: Circumcision, NORMAL INSPECTION External exam: NORMAL EXTERNAL EXAM Speculum exam: NORMAL SPECULUM EXAM Bimanual exam: NORMAL BIMANUAL EXAM - Neurological Exam Neurological exam: Alert, CN II-XII Intact, Normal Gait, Oriented x3, Reflexes Normal - Psychiatric Exam Psychiatric exam: Normal Affect, Normal Mood - Skin Skin Exam: Dry, Intact, Normal Color, Warm Discharge Plan - Follow Up Plan Condition: FAIR Disposition: TRANSF TO SNF Instructions: Heart Failure (GEN), Fall Prevention (GEN) Additional Instructions: DISCHARGE TO TRANSITIONAL CARE UNIT. FOLLOW UP WITH DR. BARLOW.
--- NOTE | 2016-12-29 05:26 | PN ---
DATE OF VISIT: 12/28/2016 SUBJECTIVE: The patient is seen lying on bed on telemetry. She is comfortable at the present time. She denies any chest pain or dyspnea at rest. Her INR remains elevated. She awaits transfer to a transitional care unit. CURRENT MEDICATIONS: Include Brovana; Bumex 0.5 mg daily; diltiazem CD 180 mg daily; Claritin; Colace, carvedilol 12.5 mg b.i.d., Coumadin 4 mg daily, which is currently on hold; doxycycline; Ecotrin; Effient 10 mg daily; iron sulfate; Glucotrol 10 mg daily; insulin coverage; digoxin 0.25 mg daily; Tradjenta; Lipitor 20 mg daily as well as Pamelor 10 mg t.i.d.;, Pepcid; Pulmicort and Solu Medrol 20 mg every 12 hours. She is also on Zestril 20 mg daily and Zoloft 50 mg at bedtime. OBJECTIVE: GENERAL: She is a middle-aged woman who appears comfortable at the present time. VITAL SIGNS: Blood pressure is 138/71 with a pulse of 68 and sinus respirations of 14. She is afebrile. NECK: No JVD. CHEST: Bilateral scattered rhonchi with no rales heard. HEART: PMI displaced laterally with soft tones noted, systolic murmur is present over the left sternal border and apex. ABDOMEN: Soft, nontender with bowel sounds. EXTREMITIES: No edema. DIAGNOSTIC DATA: INR is 3.58. *------* recent chemistries are pending. IMPRESSION: 1. Decompensated congestive heart failure, clinically improved. 2. Coronary artery disease, status post remote multivessel percutaneous coronary intervention and prior bypass surgery. 3. Severe left ventricular dysfunction. 4. Chronic obstructive pulmonary disease. 5. History of diabetes and hypertension. 6. Paroxysmal atrial fibrillation. 7. Ventricular tachycardia, status post ICD implant. RECOMMENDATIONS: Coumadin will be withheld again today. The rest of her medications can continue unchanged. She is stable from a cardiac standpoint to transfer to the TCU. Outpatient followup has been arranged. Dwight Patiño MD [facility] # [id number]
--- NOTE | 2016-12-29 14:41 | PN ---
DATE: 12/28/2016 REFERRING PHYSICIAN: Tanisha Lebron MD SUBJECTIVE: Sitting at the side of the bed, watching TV. Night was unremarkable. Feels better, decreased cough, decreased shortness of breath. No nausea. No vomiting, diarrhea, leg pain or leg swelling. OBJECTIVELY: GENERAL: No acute distress. VITAL SIGNS: Temperature 98, heart rate 66, respiratory rate 16, blood pressure 120/75, and pulse ox 99% on nasal cannula. HEENT: Moist mucous membranes. Crowded airway, Mallampati score is IV. NECK: Supple, no JVD. CARDIOPULMONARY: S1 and S2. LUNGS: Prolonged expiratory phase with some rhonchi. ABDOMEN: Soft, nontender, no organomegaly. EXTREMITIES: No edema. NEUROLOGIC: Awake, alert. Follows simple commands. MEDICATIONS: Reviewed and noted. No new change in medication reported since yesterday. LABORATORY DATA: Reviewed and noted. Today, INR is 3.58. Blood sugar is 264. IMPRESSION AND PLAN: Status post fall with multiple bruises, upper back and arms, coronary artery disease, history of coronary artery bypass surgery, hypertension, chronic obstructive lung disease, diabetes, may have a sleep apnea syndrome. Continue IV inhaler and bronchodilator, gastric prophylaxis, anticoagulation, platelet inhibitor, fall precaution. We will need outpatient PFT. Also, ideally need sleep study, but she refusing, understands risk-benefit ratio. Thank you and we will follow with you. Rosina Gabriel MD
== END 2016-12-28 15:57 | DRG 291 ==
LOC: ED 11:04 → ERH 13:37 → 2RNO 15:30 → OBSVTOIN 12-25 15:27
PROVIDERS: ADMIT Internal Medicine; ATTEND Internal Medicine
PROC: 4B02XTZ Measurement of Cardiac Defibrillator, External Approach (ICD-10-PCS; principal; 2016-12-27)
DX: I11.0 Hypertensive heart disease with heart failure (principal); J18.9 Pneumonia, unspecified organism; I47.2 Ventricular tachycardia; J44.0 Chronic obstructive pulmonary disease with (acute) lower respiratory infection; I48.0 Paroxysmal atrial fibrillation; E11.9 Type 2 diabetes mellitus without complications; I44.7 Left bundle-branch block, unspecified; I50.23 Acute on chronic systolic (congestive) heart failure; M54.2 Cervicalgia; S40.022A Contusion of left upper arm, initial encounter; S40.021A Contusion of right upper arm, initial encounter; G47.33 Obstructive sleep apnea (adult) (pediatric); I25.10 Atherosclerotic heart disease of native coronary artery without angina pectoris; R26.2 Difficulty in walking, not elsewhere classified; W19.XXXA Unspecified fall, initial encounter; Y92.009 Unspecified place in unspecified non-institutional (private) residence as the place of occurrence of the external cause; Z95.810 Presence of automatic (implantable) cardiac defibrillator; Z95.1 Presence of aortocoronary bypass graft; Z79.82 Long term (current) use of aspirin; Z79.4 Long term (current) use of insulin; Z87.891 Personal history of nicotine dependence; Z95.5 Presence of coronary angioplasty implant and graft

== ENCOUNTER 2016-12-28 16:07 | Inpatient (IN) | payer OTHER, MEDICAID ==
[2016-12-28 16:16] VITALS: BMI 24.7
[2016-12-28] MEDS ORDERED: Pneumococcal 23-Valent Vaccine IM ONE (19:04)
[2016-12-28] MEDS ORDERED: Arformoterol 15 mcg/2 ml Inh Sol IH SCH (20:00)
[2016-12-28] MEDS: Arformoterol 15 mcg/2 ml Inh Sol IH SCH (20:01)
[2016-12-28] MEDS: Budesonide 0.5 mg/2 ml Inhal Susp UD IH SCH (20:01)
[2016-12-28] MEDS: Insulin Reg-LOW-Coverage SC SCH (22:03)
[2016-12-28] MEDS: MethylPREDNISolone 40 mg Vial IVP SCH (22:07)
[2016-12-29] MEDS: Insulin Reg-LOW-Coverage SC SCH ×4 (06:52→22:09)
[2016-12-29] MEDS: Arformoterol 15 mcg/2 ml Inh Sol IH SCH ×2 (07:27→20:04)
[2016-12-29] MEDS: Budesonide 0.5 mg/2 ml Inhal Susp UD IH SCH ×2 (07:27→20:04)
[2016-12-29 08:24] LABS: HEMOGLOBIN 10.4 gm/dL (12.0-16.0); MEAN CELL VOLUME 91.4 fL (80.0-105.0); MEAN CORPUSCULAR HEMOGLOBIN 29.9 pg (25.0-35.0); MEAN CORPUSCULAR HGB CONC 32.7 g/dl (31.0-37.0); MEAN PLATELET VOLUME 8.8 fl (7.0-11.0); RBC 3.48 10^6/uL (3.5-6.1); RED CELL DISTRIBUTION WIDTH 16.1 % (11.5-14.5); WHITE BLOOD COUNT 12.3 10^3/ul (4.5-11.0)
[2016-12-29 08:37] LABS: INR 2.46 (0.93-1.08); PROTHROMBIN TIME 26.6 Seconds (9.9-11.8)
[2016-12-29 08:55] LABS: ALB/GLOB RATIO 1.2 (1.1-1.8); ALBUMIN 3.6 g/dL (3.0-4.8); ALT/SGPT 57 U/L (7-56); AST/SGOT 21 U/L (15-39); BLOOD UREA NITROGEN 28 mg/dL (7-21); CALCIUM 9.8 mg/dL (8.4-10.5); GFR AFRICAN-AMERICAN > 60; GFR NON-AFRICAN AMERICAN 55
[2016-12-29] MEDS ORDERED: Digoxin 250 mcg (0.25 mg) Tab PO SCH (10:00)
[2016-12-29] MEDS: Non Formulary Medication (Linagliptin [Tradjenta] 5 MG) PO SCH (10:41)
[2016-12-29] MEDS: MethylPREDNISolone 40 mg Vial IVP SCH ×2 (10:43→22:09)
[2016-12-29] MEDS: diltiaZEM 180 mg/24 Hours CD Cap PO SCH (10:45)
[2016-12-29] MEDS: BIOTIN PO SCH (10:45)
[2016-12-29] MEDS: Insulin Detemir 100 units/ml Vial (Levemir) SC SCH (10:46)
[2016-12-29] MEDS: Non Formulary Medication (Umeclidinium Bromide [Incruse Ellipta] 62.5 MCG) IH SCH (10:55)
[2016-12-29] MEDS: Digoxin 250 mcg (0.25 mg) Tab PO SCH (14:45)
--- NOTE | 2016-12-30 05:05 | PN ---
DATE: 12/29/2016 SUBJECTIVE: The patient is seen lying in bed on TCU. She is currently comfortable. She has no dyspnea at the present time. CURRENT MEDICATIONS: Include Brovana, Bumex 0.5 mg daily. Cardizem CD 180 mg daily, Claritin, Colace, carvedilol 12.5 mg b.i.d., doxycycline, Ecotrin, Effient 10 mg daily, ferrous sulfate, Glucotrol 10 mg daily, insulin cartridge, digoxin 0.25 mg daily, Levemir insulin 12 units daily, Tradjenta 5 mg daily, Lipitor 20 mg daily, Pamelor, Pepcid, Pulmicort inhaler, Solu-Medrol 20 mg q.12 hours, Zestril 20 mg daily, Zoloft 50 mg daily. OBJECTIVE GENERAL: She is a middle-aged woman who appears comfortable at rest. VITAL SIGNS: Blood pressure is 130/70, pulse is 70, respirations are 14; she is currently afebrile. HEENT: No JVD. CHEST: A few scattered rhonchi. HEART: PMI displaced laterally with soft tones noted. ABDOMEN: Soft, nontender with normoactive bowel sounds. EXTREMITIES: No edema. DIAGNOSTIC DATA: Morning blood work is pending. INR is pending as well. IMPRESSION: 1. Acute on chronic congestive heart failure with recent decompensation that is predominantly systolic, clinically improved. 2. Coronary artery disease, status post multivessel percutaneous coronary intervention, remains on dual antiplatelet therapy. 3. Chronic atrial fibrillation, remains on full anticoagulation as well. She has had no evidence of bleeding thus far. 4. Severe left ventricular dysfunction. 5. Ventricular tachycardia, status post implantable cardioverter defibrillator implant. 6. Rest of problems as noted. RECOMMENDATIONS: Current management should continue. An INR will be checked from this morning and Coumadin dose adjusted as needed. Target INR should be between 2.0 and 2.5 given the need for dual antiplatelet therapy following recent PCI. Three months after PCI, aspirin can be discontinued and Effient continued along with her Coumadin. We will continue to follow and make further recommendations as appropriate. Dwight Patiño MD [facility] # [id number]
[2016-12-30] MEDS: Insulin Reg-LOW-Coverage SC SCH ×4 (06:52→22:34)
[2016-12-30] MEDS: Arformoterol 15 mcg/2 ml Inh Sol IH SCH ×2 (07:24→19:00)
[2016-12-30] MEDS: Budesonide 0.5 mg/2 ml Inhal Susp UD IH SCH ×2 (07:24→19:00)
--- NOTE | 2016-12-30 07:37 | CP.PCM.PN ---
Subjective - Date & Time of Evaluation Date of Evaluation: 12/30/16 Time of Evaluation: 07:00 - Subjective Subjective: Stable in TCU. She feels very well. No CP, SOB, GI sxs. Rehab efforts going well. V/S noted. PE: Lungs: clear Cor.: S1S2 Abd.: soft Ext.: no edema Neuro.: alert Labs 12/29 noted. INR = 2.46. Todays labs pending. Objective - Vital Signs/Intake and Output Vital Signs (last 24 hours): Temp Pulse Resp BP Pulse Ox 97.9 F 63 12 143/60 97 12/29/16 08:00 12/29/16 17:08 12/29/16 08:00 12/29/16 17:08 12/29/16 06:00 - Medications Medications: Current Medications Acetaminophen (Tylenol 325mg Tab) 650 mg PO Q4H PRN; Protocol PRN Reason: Pain, Mild (1-3) Arformoterol Tartrate (Brovana) 15 mcg IH [id number] [facility] Last Admin: 12/30/16 07:24 Dose: 15 mcg Aspirin (Ecotrin) 81 mg PO 0800 [facility] Last Admin: 12/29/16 08:38 Dose: 81 mg Atorvastatin Calcium (Lipitor) 20 mg PO DAILY [facility] PRN Reason: Protocol Last Admin: 12/29/16 10:41 Dose: 20 mg Budesonide (Pulmicort Respules) 0.5 mg IH [id number] [facility] PRN Reason: Protocol Last Admin: 12/30/16 07:24 Dose: 0.5 mg Bumetanide (Bumex) 0.5 mg PO DAILY [facility] Last Admin: 12/29/16 10:55 Dose: Not Given Carvedilol (Coreg) 12.5 mg PO 0800,1800 [facility] Last Admin: 12/29/16 17:08 Dose: 12.5 mg Digoxin (Lanoxin) 0.25 mg PO 1400 [facility] PRN Reason: Protocol Last Admin: 12/29/16 14:45 Dose: 0.25 mg Diltiazem HCl (Cardizem Cd) 180 mg PO DAILY [facility] PRN Reason: Protocol Last Admin: 12/29/16 10:45 Dose: 180 mg Docusate Sodium (Colace) 100 mg PO BID [facility] PRN Reason: Protocol Last Admin: 12/29/16 17:07 Dose: 100 mg Doxycycline Hyclate (Doryx) 100 mg PO Q12 [facility] PRN Reason: Protocol Last Admin: 12/29/16 22:08 Dose: 100 mg Famotidine (Pepcid) 40 mg PO HS [facility] PRN Reason: Protocol Last Admin: 12/29/16 22:09 Dose: 40 mg Ferrous Sulfate (Feosol) 324 mg PO TID [facility] PRN Reason: Protocol Last Admin: 12/29/16 17:09 Dose: 324 mg Glipizide (Glucotrol) 10 mg PO DAILY [facility] PRN Reason: Protocol Last Admin: 12/29/16 10:43 Dose: 10 mg Insulin Detemir (Levemir) 12 unit SC DAILY [facility] PRN Reason: Protocol Last Admin: 12/29/16 10:46 Dose: 12 unit Insulin Human Regular (Humulin R Low) 0 units SC ACHS [facility] PRN Reason: Protocol Last Admin: 12/30/16 06:52 Dose: 1 units Lisinopril (Zestril) 20 mg PO DAILY [facility] PRN Reason: Protocol Last Admin: 12/29/16 10:40 Dose: 20 mg Loratadine (Claritin) 10 mg PO DAILY [facility] PRN Reason: Protocol Last Admin: 12/29/16 10:38 Dose: 10 mg Methylprednisolone (Solu-Medrol) 20 mg IVP Q12 [facility] PRN Reason: Protocol Last Admin: 12/29/16 22:09 Dose: 20 mg Nitroglycerin (Nitrostat Sl Tab) 0.4 mg SL PRN PRN PRN Reason: CHEST PAIN Non-Formulary Medication (Biotin [Biotin]) 1 tab PO DAILY [facility] Last Admin: 12/29/16 10:45 Dose: Not Given Non-Formulary Medication (Linagliptin [Tradjenta]) 5 mg PO DAILY [facility] Last Admin: 12/29/16 10:41 Dose: Not Given Non-Formulary Medication (Umeclidinium [place] [Incruse Ellipta]) 62.5 mcg IH DAILY [facility] Last Admin: 12/29/16 10:55 Dose: Not Given Nortriptyline HCl (Pamelor) 10 mg PO TID [facility] Last Admin: 12/29/16 17:09 Dose: 10 mg Ondansetron HCl (Zofran Inj) 4 mg IVP Q4H PRN; Protocol PRN Reason: Nausea/Vomiting Prasugrel (Effient) 10 mg PO DAILY [facility] PRN Reason: Protocol Last Admin: 12/29/16 10:40 Dose: 10 mg Sertraline HCl (Zoloft) 50 mg PO HS [facility] PRN Reason: Protocol Last Admin: 12/29/16 22:10 Dose: 50 mg Tramadol HCl (Ultram) 50 mg PO DAILY PRN; Protocol PRN Reason: Pain, moderate (4-7) Last Admin: 12/29/16 18:00 Dose: 50 mg Warfarin Sodium (Coumadin) 1 mg PO 1800 [facility] PRN Reason: Protocol Last Admin: 12/29/16 17:30 Dose: 1 mg - Labs Labs: 12/29/16 08:19 12/29/16 08:19 PT 26.6 Seconds (9.9-11.8) H 12/29/16 08:19 INR 2.46 (0.93-1.08) H 12/29/16 08:19 Assessment and Plan - Assessment and Plan (Free Text) Assessment: Assessment: S/P mechanical fall Dizziness, resolved CAD, recent PCI, remote PCIs and CABG Severe LVD CHF COPD Diabetes HBP PAF [place] ICD Plan: As per Matthieu Wright Warfarin by INR's OOB/PT/Rehab efforts
[2016-12-30 08:11] LABS: INR 1.88 (0.93-1.08); PROTHROMBIN TIME 20.3 Seconds (9.9-11.8)
[2016-12-30] MEDS: diltiaZEM 180 mg/24 Hours CD Cap PO SCH (10:20)
[2016-12-30] MEDS: Non Formulary Medication (Linagliptin [Tradjenta] 5 MG) PO SCH (10:23)
[2016-12-30] MEDS: Insulin Detemir 100 units/ml Vial (Levemir) SC SCH (10:24)
[2016-12-30] MEDS: BIOTIN PO SCH (10:25)
[2016-12-30] MEDS: MethylPREDNISolone 40 mg Vial IVP SCH ×2 (11:50→22:36)
[2016-12-30] MEDS: Non Formulary Medication (Umeclidinium Bromide [Incruse Ellipta] 62.5 MCG) IH SCH (11:52)
--- NOTE | 2016-12-30 12:03 | CON ---
PULMONARY CONSULTATION DATE: 12/29/2016 REFERRING PHYSICIAN: Dr. Lorenzana REASON FOR CONSULTATION: Chronic obstructive lung disease. HISTORY OF PRESENT ILLNESS: This is a 71-year-old female with past medical history significant for chronic obstructive lung disease, diabetes, history of coronary artery disease, history of coronary artery bypass surgery, heart failure, paroxysmal atrial fibrillation, originally admitted to acute site of the hospital with cough and shortness of breath, treated with antibiotics and fevers improved, presently transferred to [facility] for continued care. She is out of bed to chair, feeling better, decreased cough and shortness of breath. No nausea. No vomiting. No diarrhea. No leg pain or leg swelling. PAST MEDICAL HISTORY: Chronic obstructive lung disease, may have sleep apnea syndrome, diabetes, hypertension, coronary artery disease, and history of coronary artery bypass surgery. ALLERGIES: PLAVIX. FAMILY HISTORY: No significant cardiopulmonary disease reported. SOCIAL HISTORY: Stopped smoking many years ago. MEDICATIONS: She is on Biotin 1 tab daily, Brovana 15 mcg inhaled twice a day, Bumex 0.5 mg twice a day, Cardizem CD 180 mg daily, Claritin 10 mg daily, Colace 100 mg twice a day, Coreg 12.5 mg twice a day, doxycycline 100 mg twice a day, Ecotrin 81 mg daily, Effient 10 mg daily, ferrous sulfate 324 mg 3 times a day, glipizide 10 mg daily, sodium chloride, digoxin 0.25 mg daily, Levemir 12 units subcutaneously daily, Tradjenta 5 mg daily, Lipitor 20 mg daily, Pamelor 10 mg 3 times a day, Pepcid 40 mg at bedtime, Pulmicort inhaled twice a day, Solu-Medrol 20 mg every12 hours, Tylenol p.r.n. basis, Ultram 50 mg daily, Zestril 20 mg daily, Zofran p.r.n. basis, and Zoloft 50 mg at bedtime. REVIEW OF SYSTEMS: No headache. No rhinitis. Decreased cough and shortness of breath. No chest pain. No nausea. No vomiting. No diarrhea. No dysuria. No leg pain or leg swelling. *------* daytime sleepy at times. PHYSICAL EXAMINATION: GENERAL: Sitting at the side of the bed, in no acute distress. VITAL SIGNS: Temperature 98, heart rate 61, respiratory rate 20, blood pressure 122/57, and pulse ox 97% on room air. HEENT: Moist mucous membranes. No carotid bruit. NECK: Supple. No JVD. HEART: S1 and S2. LUNGS: Had fair airflow with few rhonchi. ABDOMEN: Soft and nontender. No organomegaly. EXTREMITIES: No edema. NEUROLOGIC: Awake, alert, and follows simple commands. LABORATORY DATA: Shows hemoglobin 10.4, hematocrit 31.8, WBC 12.3, and platelet is 390. INR 2.46. Sodium 136, potassium 4.4, chloride 102, bicarbonate 23, BUN 28, creatinine 1.0, glucose 129, and calcium 9.8. AST 21, ALT 57, alk phos is 98, and albumin is 3.6. IMPRESSION AND PLAN: Status post fall with multiple bruises upper back and arms, coronary artery disease, history of coronary artery bypass surgery, hypertension, chronic obstructive lung disease, diabetes, may have sleep apnea syndrome ,refused to use continuous positive airway pressure and bilevel positive airway pressure and also refused to use sleep study. Pulmonary point of view doing okay. Continue IV and inhaled bronchodilator. Continue antibiotics, gastric prophylaxis, may give Coumadin 1 mg today, *------* in the morning. Continue therapy. Thank you very much and we will follow with you. Rosina Gabriel MD
[2016-12-30] MEDS: Digoxin 250 mcg (0.25 mg) Tab PO SCH (13:43)
[2016-12-30 16:48] VITALS: RESP 18
--- NOTE | 2016-12-31 01:07 | HP ---
12/29/16 CHIEF COMPLAINT: Fatigue and tired, shortness of breath. HISTORY OF PRESENT ILLNESS: Ms. Johnny Nobles is a 71-year-old female with past medical history of multiple problems, hypertension, congestive heart failure, COPD, diabetes mellitus, who came to the emergency room after a mechanical fall, neck pain, sustained 2 days ago before last admission, was admitted in [facility] on 12/24/2016. MRI scan was done, no fracture, but in the emergency room, the patient was having shortness of breath, could not breathe, had exacerbation of COPD and asthma, and was admitted for that. The patient got pulmonary consult, had exacerbation of congestive hear failure, and required cardiology consult. Lasix and steroids were given. The patient started feeling better, got physical therapy, but was still fatigued and tired, and was transferred to TCU for continuity of care and for physical therapy. I am doing history and physical for 12/29/2016. The patient was seen and examined on 12/29/2016. PAST MEDICAL HISTORY: CABG x3, congestive heart failure, hypertension, COPD, diabetic mellitus, history of former smoking, asthma, history of pneumonia, history of pulmonary emboli, history of ileostomy in 2010, history of irritable bowel syndrome, cardiac catheterization, and history of neck fusion. ALLERGIES: THE PATIENT IS ALLERGIC TO PLAVIX, GETTING RASH. HABITS: History of smoking. No drugs and no ethanol abuse. PHYSICAL EXAMINATION VITAL SIGNS: Temperature 98.6, pulse 61, blood pressure 122/55, and respiration rate 18. HEENT: Head normocephalic, atraumatic. Eyes: PERRLA, extraocular muscles intact. Conjunctive are clear. Nose patent. Mucous membranes moist. NECK: Supple. No carotid bruit. No thyromegaly. CHEST: Bilaterally symmetrical. HEART: S1 and S2 positive. LUNGS: Clear to auscultation. ABDOMEN: Soft. Bowel sounds present. No organomegaly. EXTREMITIES: No edema. No cyanosis. NEUROLOGIC: The patient is awake, alert, moving all four extremities. No focal deficit. MEDICATIONS: Biotin, Brovana, Bumex, Cardizem, Claritin, Colace, Coreg, Coumadin was on hold, doxycycline, Ecotrin, Effient, ferrous sulfate, Glucotrol, insulin Levemir, Tradjenta, and Lipitor. LABORATORY DATA: White blood cells 12.3, hemoglobin 10.4, hematocrit 31.8, and platelets 390. INR 1.88, we will restart Coumadin. Sodium 136, potassium 4.4, BUN 28, creatinine 1.0, glucose 176. AST is 57. ASSESSMENT AND PLAN: Ms. Johnny Nobles is a 71-year-old, with abnormal liver function test, hyperglycemia, uncontrolled diabetes mellitus, leukocytosis, and anemia, who came in with exacerbation of congestive heart failure, exacerbation of chronic obstructive pulmonary disease, status post mechanical fall with neck sprain or strain, dizziness that resolved, history of coronary disease, recent percutaneous coronary intervention, remote percutaneous coronary intervention and coronary artery bypass graft, severe left ventricular dysfunction, history of implantable cardioverter-defibrillator, ventricular tachycardia, paroxysmal atrial fibrillation, HBP, seen by the sales service manager, Dr. Kemp, appreciated. Decompensated congestive heart failure, acute on chronic, preliminary systolic; history of bypass surgery and multivessel percutaneous coronary intervention. We will continue Lasix. Cardiac medication, we will continue the same thing as per Dr. Kemp, fluid restriction, and physical therapy. We will repeat PT and INR. We will restart Coumadin. We will follow up. Tanisha Lebron MD [facility]
--- NOTE | 2016-12-31 04:04 | PN ---
DATE: 12/30/2016 REFERRING PHYSICIAN: *------* SUBJECTIVE: The patient is sitting up in a reclining chair. Night went unremarkable. Did well in therapy. Decreased cough, decreased shortness of breath. No nausea, no vomiting or diarrhea. No leg pain or leg swelling. PHYSICAL EXAMINATION GENERAL: In no acute distress. VITAL SIGNS: Temperature is 98, heart rate 60, respiratory rate is 20, blood pressure 130/54 and pulse 75. HEENT: Moist mucous membrane. Crowded airway. Mallampati score is 4.. NECK: Supple. JVD. LUNGS: Fair air flow with rhonchi. HEART: S1, S2. ABDOMEN: Soft, nontender. No organomegaly. EXTREMITIES: No edema. NEUROLOGICAL: Awake, alert and follows simple commands. MEDICATIONS: She is on Brovana inhaler twice a day, Cardizem CD 180 mg daily, Claritin 10 mg daily, Colace 100 mg twice a day, Coreg 12.5 mg twice a day, Coumadin 1 mg was given last night, doxycycline 100 mg twice a day, Ecotrin 81 mg daily, Effient 10 mg daily, ferrous sulfate 325 mg 3 times a day, glipizide 10 mg daily, insulin coverage, digoxin 0.25 mg daily, Levemir 12 units subcu daily, Tradjenta 5 mg daily, Lipitor 20 mg daily, Pamelor 10 mg 3 times a day, Pepcid 40 mg daily, budesonide inhaled twice a day, Solu-Medrol 20 mg every 12 hours, Tylenol p.r.n., Ultram 50 mg daily, Zestril 20 mg daily, Zofran p.r.n. basis and Zoloft 50 mg at night. LABORATORY DATA: INR today 1.88. Blood sugar this morning was 203. IMPRESSION: Status post fall with multiple bruises of upper arm and upper back, coronary artery disease, history of coronary bypass surgery, hypertension, chronic obstructive lung disease, diabetes, may have sleep apnea syndrome, and paroxysmal atrial fibrillation. PLAN: Patient refused sleep study. We will give her extra 2 mg Coumadin today. INR in the morning. Continue bronchodilators, antibiotics, fall precautions. Thank you. I will follow with you. Rosina Gabriel MD [facility] # [id number]
[2016-12-31 07:32] LABS: HEMOGLOBIN 11.2 gm/dL (12.0-16.0); MEAN CELL VOLUME 91.4 fL (80.0-105.0); MEAN CORPUSCULAR HEMOGLOBIN 29.9 pg (25.0-35.0); MEAN CORPUSCULAR HGB CONC 32.7 g/dl (31.0-37.0); MEAN PLATELET VOLUME 8.8 fl (7.0-11.0); RBC 3.74 10^6/uL (3.5-6.1); RED CELL DISTRIBUTION WIDTH 16.2 % (11.5-14.5); WHITE BLOOD COUNT 11.5 10^3/ul (4.5-11.0)
[2016-12-31] MEDS: Arformoterol 15 mcg/2 ml Inh Sol IH SCH ×2 (07:32→22:00)
[2016-12-31] MEDS: Budesonide 0.5 mg/2 ml Inhal Susp UD IH SCH ×2 (07:32→22:00)
[2016-12-31 07:41] LABS: INR 1.57 (0.93-1.08)
[2016-12-31 07:44] LABS: BLOOD UREA NITROGEN 25 mg/dL (7-21); CALCIUM 9.7 mg/dL (8.4-10.5); GFR AFRICAN-AMERICAN > 60; GFR NON-AFRICAN AMERICAN > 60
[2016-12-31] MEDS: Insulin Reg-LOW-Coverage SC SCH ×5 (07:46→22:56)
--- NOTE | 2016-12-31 08:17 | CP.PCM.PN ---
Subjective - Date & Time of Evaluation Date of Evaluation: 12/31/16 Time of Evaluation: 07:00 - Subjective Subjective: Stable in TCU. She feels very well. No CP, SOB, GI sxs. Rehab efforts going well. V/S noted. PE: Lungs: clear Cor.: S1S2 Abd.: soft Ext.: no edema Neuro.: alert Labs 12/29 noted. INR = 1.57 Objective - Vital Signs/Intake and Output Vital Signs (last 24 hours): Temp Pulse Resp BP Pulse Ox 98.0 F 67 18 126/91 H 96 12/31/16 06:00 12/31/16 06:00 12/31/16 06:00 12/31/16 06:00 12/31/16 06:00 - Medications Medications: Current Medications Acetaminophen (Tylenol 325mg Tab) 650 mg PO Q4H PRN; Protocol PRN Reason: Pain, Mild (1-3) Arformoterol Tartrate (Brovana) 15 mcg IH [id number] [facility] Last Admin: 12/31/16 07:32 Dose: 15 mcg Aspirin (Ecotrin) 81 mg PO 0800 [facility] Last Admin: 12/30/16 08:13 Dose: 81 mg Atorvastatin Calcium (Lipitor) 20 mg PO DAILY [facility] PRN Reason: Protocol Last Admin: 12/30/16 11:51 Dose: 20 mg Budesonide (Pulmicort Respules) 0.5 mg IH [id number] [facility] PRN Reason: Protocol Last Admin: 12/31/16 07:32 Dose: 0.5 mg Bumetanide (Bumex) 0.5 mg PO DAILY [facility] Last Admin: 12/30/16 10:26 Dose: Not Given Carvedilol (Coreg) 12.5 mg PO 0800,1800 [facility] Last Admin: 12/30/16 17:59 Dose: 12.5 mg Digoxin (Lanoxin) 0.25 mg PO 1400 [facility] PRN Reason: Protocol Last Admin: 12/30/16 13:43 Dose: 0.25 mg Diltiazem HCl (Cardizem Cd) 180 mg PO DAILY [facility] PRN Reason: Protocol Last Admin: 12/30/16 10:20 Dose: 180 mg Docusate Sodium (Colace) 100 mg PO BID [facility] PRN Reason: Protocol Last Admin: 12/30/16 17:59 Dose: 100 mg Doxycycline Hyclate (Doryx) 100 mg PO Q12 [facility] PRN Reason: Protocol Last Admin: 12/30/16 22:34 Dose: 100 mg Famotidine (Pepcid) 40 mg PO HS [facility] PRN Reason: Protocol Last Admin: 12/30/16 22:35 Dose: 40 mg Ferrous Sulfate (Feosol) 324 mg PO TID [facility] PRN Reason: Protocol Last Admin: 12/30/16 18:00 Dose: 324 mg Glipizide (Glucotrol) 10 mg PO DAILY [facility] PRN Reason: Protocol Last Admin: 12/30/16 10:22 Dose: 10 mg Insulin Detemir (Levemir) 12 unit SC DAILY [facility] PRN Reason: Protocol Last Admin: 12/30/16 10:24 Dose: 12 unit Insulin Human Regular (Humulin R Low) 0 units SC ACHS [facility] PRN Reason: Protocol Last Admin: 12/31/16 07:50 Dose: 1 units Lisinopril (Zestril) 20 mg PO DAILY [facility] PRN Reason: Protocol Last Admin: 12/30/16 11:50 Dose: 20 mg Loratadine (Claritin) 10 mg PO DAILY [facility] PRN Reason: Protocol Last Admin: 12/30/16 10:20 Dose: 10 mg Methylprednisolone (Solu-Medrol) 20 mg IVP Q12 [facility] PRN Reason: Protocol Last Admin: 12/30/16 22:36 Dose: 20 mg Nitroglycerin (Nitrostat Sl Tab) 0.4 mg SL PRN PRN PRN Reason: CHEST PAIN Non-Formulary Medication (Biotin [Biotin]) 1 tab PO DAILY [facility] Last Admin: 12/30/16 10:25 Dose: Not Given Non-Formulary Medication (Linagliptin [Tradjenta]) 5 mg PO DAILY [facility] Last Admin: 12/30/16 10:23 Dose: Not Given Non-Formulary Medication (Umeclidinium [place] [Incruse Ellipta]) 62.5 mcg IH DAILY [facility] Last Admin: 12/30/16 11:52 Dose: Not Given Nortriptyline HCl (Pamelor) 10 mg PO TID [facility] Last Admin: 12/30/16 18:01 Dose: 10 mg Ondansetron HCl (Zofran Inj) 4 mg IVP Q4H PRN; Protocol PRN Reason: Nausea/Vomiting Prasugrel (Effient) 10 mg PO DAILY [facility] PRN Reason: Protocol Last Admin: 12/30/16 10:21 Dose: 10 mg Sertraline HCl (Zoloft) 50 mg PO HS [facility] PRN Reason: Protocol Last Admin: 12/30/16 22:37 Dose: 50 mg Tramadol HCl (Ultram) 50 mg PO DAILY PRN; Protocol PRN Reason: Pain, moderate (4-7) Last Admin: 12/31/16 00:28 Dose: 50 mg Warfarin Sodium (Coumadin) 4 mg PO 1800 [facility] PRN Reason: Protocol - Labs Labs: 12/31/16 07:00 12/31/16 07:00 PT 17.0 Seconds (9.9-11.8) H 12/31/16 07:00 INR 1.57 (0.93-1.08) H 12/31/16 07:00 Assessment and Plan - Assessment and Plan (Free Text) Assessment: Assessment: S/P mechanical fall Dizziness, resolved CAD, recent PCI, remote PCIs and CABG Severe LVD CHF COPD Diabetes HBP PAF VT ICD Plan: As per Matthieu Wright Warfarin by INR's. Resume 4 mg. daily. OOB/PT/Rehab efforts
--- NOTE | 2016-12-31 08:58 | HP ---
CHIEF COMPLAINT: Neck pain and shortness of breath. HISTORY OF PRESENT ILLNESS: Ms. Mallorie Turner is a 71 years old lady, my private patient is admitted with multiple medical problems, came to emergency room of the [facility] for neck pain after a mechanical fall sustained 2 days ago. The patient stated that she was carrying a box of *------* and fell backward landing on her left shoulder and neck. She states that the pain from her neck radiating to the back and then to the extremities. Denies numbness, but does report generalized weakness and difficulty of walking. According to the patient, she is in the emergency room when she started shortness of breath, scans of her extremities had been done and that was negative. We admitted her for shortness of breath, for progressively worsening COPD and asthma. Pulmonary consult called. The patient was seen by the miller head also. Starting to feeling better. Her INR was high. We will hold the Coumadin, repeating PT/INR. Discharged the patient to TCU for continuity of care and for physical therapy and checking PT/INR. PAST MEDICAL HISTORY: Chronic history of pulmonary disease, sleep apnea syndrome, hypertension, coronary artery disease, history of coronary artery bypass surgery, history of colon surgery. ALLERGIES: THE PATIENT IS ALLERGIC TO CLOPIDOGREL. FAMILY HISTORY: Father, mother are noncontributory. HABITS: History of smoking, but no more smoking, no drug nor ethanol. MEDICATIONS: Reviewed by me. REVIEW OF SYSTEMS: No headache. No nausea, vomiting or diarrhea. Cough is better. Shortness of breath better. Neck pain and extremity pains are better. No dysuria. No swelling of the leg. No daytime sleepiness. PHYSICAL EXAMINATION: VITAL SIGNS: Temperature is 98, pulse 60, blood pressure 130/54, respiratory rate 18. HEENT: Head normocephalic, atraumatic. Extraocular muscles intact. Conjunctive clear. Nose patent. Mucous membrane moist. NECK: Supple. No carotid bruit or thyromegaly. CHEST: Wall is symmetrical. HEART: S1 and S2 positive. LUNGS: Clear to auscultation. ABDOMEN: Soft. Positive bowel sounds, no organomegaly. EXTREMITIES: No edema or cyanosis. NEUROLOGIC: The patient is awake and alert. Moving all 4 extremities. No focal deficit. MEDICATIONS: Biotin, Brovana, Bumex, Cardizem, Claritin, Colace, Coreg, Coumadin, doxycycline, Ecotrin, and Effient. LABORATORY DATA: White blood cells 12.3, hemoglobin 10.4, hematocrit 31.8, platelets 390. Glucose 203. Sodium 136, potassium 4.4, BUN 20, creatinine 1.0, glucose 129, AST 57. ASSESSMENT AND PLAN: Ms. Mallorie Turner is a 71 years old lady seen by me on 12/30/2016, I did history and physical for 12/30/2016, has uncontrolled diabetes mellitus, abnormal liver function test, leukocytosis, anemia, history of chronic obstructive pulmonary disease, asthma, mechanical fall, sleep apnea syndrome, hypertension, coronary artery disease, history of coronary artery bypass, multiple bruises upper back and arms. The patient receives continuous positive airway pressure and Bilevel positive airway pressure and also refused to use sleep study; according to her, she is claustrophobic, she do not want that. Continue bronchodilators, antibiotics, Coumadin and checking on Coumadin. GI , DVT prophylaxis, getting physical therapy. We will follow up. Tanisha Lebron MD
[2016-12-31] MEDS: BIOTIN PO SCH (11:00)
[2016-12-31] MEDS: diltiaZEM 180 mg/24 Hours CD Cap PO SCH (11:01)
[2016-12-31] MEDS: Insulin Detemir 100 units/ml Vial (Levemir) SC SCH (11:09)
[2016-12-31] MEDS: Non Formulary Medication (Linagliptin [Tradjenta] 5 MG) PO SCH (11:11)
[2016-12-31] MEDS: MethylPREDNISolone 40 mg Vial IVP SCH ×2 (11:16→21:39)
[2016-12-31] MEDS: Non Formulary Medication (Umeclidinium Bromide [Incruse Ellipta] 62.5 MCG) IH SCH (11:17)
[2016-12-31] MEDS: Digoxin 250 mcg (0.25 mg) Tab PO SCH (14:09)
--- NOTE | 2017-01-01 06:03 | PN ---
REFERRING PHYSICIAN: Dr. Lebron. DATE: 12/31/2016 SUBJECTIVE: The patient is ambulating in the room, it was unremarkable, doing well in therapy. Cough is better. No nausea, no vomiting or diarrhea. No leg pain or leg swelling. OBJECTIVE: VITAL SIGNS: Temperature 98, heart rate 67, respiratory rate 18, blood pressure 137/65, pulse ox 98% on room air. HEENT: Moist mucous membranes. *------*. NECK: Supple. No JVD. LUNGS: Fair air flow with rhonchi. HEART: S1, S2. ABDOMEN: Soft, nontender. No organomegaly. EXTREMITIES: There is no edema. NEUROLOGICAL: Awake, alert and follows simple commands. MEDICATIONS: She is on Claritin 10 mg daily, Colace 100 mg twice a day, Coreg 12.5 mg twice a day, Coumadin 4 mg given today, doxycycline 100 mg daily, Ecotrin 81 mg daily, Effient 10 mg daily, ferrous sulfate 324 mg 3 times a day, glipizide 10 mg daily, insulin coverage, digoxin 0.25 mg daily, Levemir 12 units subcu daily, Tradjenta 5 mg daily, Lipitor 20 mg daily, Pamelor 10 mg 3 times a day, Pepcid 40 mg daily, Pulmicort inhaled twice a day, Solu-Medrol 20 mg q. 12 hours, Tylenol p.r.n. basis, Ultram 50 mg daily p.r.n., Zestril 20 mg daily, Zofran p.r.n. basis, and Zoloft 50 mg daily. LABORATORY DATA: Shows hemoglobin 11.2, hematocrit 34.2, WBC 11.5, platelet is 333. INR is 1.57. Sodium 136, potassium 4.3, chloride 102, bicarbonate 23, BUN 25, creatinine 0.5, glucose 132 and calcium 9.7. IMPRESSION AND PLAN: Status post fall with multiple bruises of upper arms and also upper back, coronary artery disease and coronary artery bypass surgery, hypertension, chronic obstructive lung disease, diabetes, may have sleep apnea syndrome. Pulmonary point of view is doing okay. Also has paroxysmal atrial fibrillation. Case discussed with Dr. Lebron. Continue anticoagulation. Continue bronchodilator. The patient refused to do sleep study as an outpatient, sleep apnea precautions. I will follow with you. Rosina Gabriel MD [facility] # [id number]
[2017-01-01 06:51] VITALS: O2SAT 97
--- NOTE | 2017-01-01 07:15 | PN ---
DATE:12/31/16 SUBJECTIVE: The patient is 71 years old female. The patient is seen and examined at the bedside, looking comfortable, did physical therapy, and tolerating food very well. No nausea, vomiting, or diarrhea. No hematuria or hematochezia. No swelling of the leg. No chest pain. No palpitations. No headache. No dizziness. She wants to go home tomorrow, getting the tapering dose of Solu-Medrol. Discussion done with the social services aide and prescription for walker written. qualified craft worker electrician is taking care of that. PHYSICAL EXAMINATION: VITAL SIGNS: Temperature is 98.6, pulse 57, blood pressure 137/55, and respiratory rate 18. HEENT: Head is normocephalic and atraumatic. Eyes: PERRLA. Extraocular muscles are intact. Conjunctivae clear. Nose patent. Mucous membranes moist. NECK: Supple. No carotid bruits or thyromegaly. CHEST: Bilaterally symmetrical. HEART: S1 and S2 positive. LUNGS: Clear to auscultation. ABDOMEN: Soft. Bowel sounds present. No organomegaly. EXTREMITIES: No edema. No cyanosis. NEUROLOGIC: The patient is awake and alert. Moving all four extremities. No focal deficit. MEDICATIONS: Biotin, Brovana, Bumex, Cardizem, Claritin, Colace, Coreg, Coumadin, doxycycline, Ecotrin, Effient, ferrous sulfate, Glucotrol, and Lanoxin. LABORATORY DATA: White blood cell is 11.8, hemoglobin 11.2, hematocrit 34.2, and platelets 333. Sodium 136, potassium 4.3, BUN 25, creatinine 0.9, and glucose of 132. ASSESSMENT AND PLAN: Ms. Mallorie Francis is a 71-year-old lady with leukocytosis, anemia, hyperglycemia, history of chronic obstructive pulmonary disease, asthma, history of mechanical fall, came with multiple bruises of upper and lower extremities and back, history of coronary artery disease, coronary artery bypass surgery, hypertension, sleep apnea syndrome, and paroxysmal atrial fibrillation. The patient is scheduled to have sleep study, BiPAP, getting Coumadin, checking INR, bronchodilators, and physical therapy. INR is 1.[address] Gabriel gave extra dose of Coumadin. We will follow up. Tanisha Lebron MD [facility] # [id number] [place]
[2017-01-01] MEDS: Arformoterol 15 mcg/2 ml Inh Sol IH SCH (07:21)
[2017-01-01] MEDS: Budesonide 0.5 mg/2 ml Inhal Susp UD IH SCH (07:21)
--- NOTE | 2017-01-01 07:21 | CP.PCM.PN ---
Subjective - Date & Time of Evaluation Date of Evaluation: 01/01/17 Time of Evaluation: 07:00 - Subjective Subjective: Stable in TCU. She feels very well. No CP, SOB, GI sxs. Rehab efforts going well. V/S noted. PE: Lungs: clear Cor.: S1S2 Abd.: soft Ext.: no edema Neuro.: alert Labs 12/31 noted. INR today pending. Objective - Vital Signs/Intake and Output Vital Signs (last 24 hours): Temp Pulse Resp BP Pulse Ox 98.1 F 63 18 128/49 L 97 01/01/17 06:00 01/01/17 06:00 01/01/17 06:00 01/01/17 06:00 01/01/17 06:00 - Medications Medications: Current Medications Acetaminophen (Tylenol 325mg Tab) 650 mg PO Q4H PRN; Protocol PRN Reason: Pain, Mild (1-3) Arformoterol Tartrate (Brovana) 15 mcg IH [id number] [facility] Last Admin: 12/31/16 22:00 Dose: 15 mcg Aspirin (Ecotrin) 81 mg PO 0800 [facility] Last Admin: 12/31/16 08:17 Dose: 81 mg Atorvastatin Calcium (Lipitor) 20 mg PO DAILY [facility] PRN Reason: Protocol Last Admin: 12/31/16 11:15 Dose: 20 mg Budesonide (Pulmicort Respules) 0.5 mg IH [id number] [facility] PRN Reason: Protocol Last Admin: 12/31/16 22:00 Dose: 0.5 mg Bumetanide (Bumex) 0.5 mg PO DAILY [facility] Last Admin: 12/31/16 11:14 Dose: Not Given Carvedilol (Coreg) 12.5 mg PO 0800,1800 [facility] Last Admin: 12/31/16 17:52 Dose: 12.5 mg Digoxin (Lanoxin) 0.25 mg PO 1400 [facility] PRN Reason: Protocol Last Admin: 12/31/16 14:09 Dose: 0.25 mg Diltiazem HCl (Cardizem Cd) 180 mg PO DAILY [facility] PRN Reason: Protocol Last Admin: 12/31/16 11:01 Dose: Not Given Docusate Sodium (Colace) 100 mg PO BID [facility] PRN Reason: Protocol Last Admin: 12/31/16 17:52 Dose: 100 mg Doxycycline Hyclate (Doryx) 100 mg PO Q12 [facility] PRN Reason: Protocol Last Admin: 12/31/16 21:39 Dose: 100 mg Famotidine (Pepcid) 40 mg PO HS [facility] PRN Reason: Protocol Last Admin: 12/31/16 21:39 Dose: 40 mg Ferrous Sulfate (Feosol) 324 mg PO TID [facility] PRN Reason: Protocol Last Admin: 12/31/16 17:53 Dose: 324 mg Glipizide (Glucotrol) 10 mg PO DAILY [facility] PRN Reason: Protocol Last Admin: 12/31/16 11:07 Dose: 10 mg Insulin Detemir (Levemir) 12 unit SC DAILY [facility] PRN Reason: Protocol Last Admin: 12/31/16 11:09 Dose: 12 unit Insulin Human Regular (Humulin R Low) 0 units SC ACHS [facility] PRN Reason: Protocol Last Admin: 12/31/16 22:56 Dose: Not Given Lisinopril (Zestril) 20 mg PO DAILY [facility] PRN Reason: Protocol Last Admin: 12/31/16 11:11 Dose: Not Given Loratadine (Claritin) 10 mg PO DAILY [facility] PRN Reason: Protocol Last Admin: 12/31/16 11:02 Dose: 10 mg Methylprednisolone (Solu-Medrol) 20 mg IVP Q12 [facility] PRN Reason: Protocol Last Admin: 12/31/16 21:39 Dose: 20 mg Nitroglycerin (Nitrostat Sl Tab) 0.4 mg SL PRN PRN PRN Reason: CHEST PAIN Non-Formulary Medication (Biotin [Biotin]) 1 tab PO DAILY [facility] Last Admin: 12/31/16 11:00 Dose: Not Given Non-Formulary Medication (Linagliptin [Tradjenta]) 5 mg PO DAILY [facility] Last Admin: 12/31/16 11:11 Dose: Not Given Non-Formulary Medication (Umeclidinium [place] [Incruse Ellipta]) 62.5 mcg IH DAILY [facility] Last Admin: 12/31/16 11:17 Dose: Not Given Nortriptyline HCl (Pamelor) 10 mg PO TID [facility] Last Admin: 12/31/16 17:53 Dose: 10 mg Ondansetron HCl (Zofran Inj) 4 mg IVP Q4H PRN; Protocol PRN Reason: Nausea/Vomiting Prasugrel (Effient) 10 mg PO DAILY [facility] PRN Reason: Protocol Last Admin: 12/31/16 11:06 Dose: 10 mg Sertraline HCl (Zoloft) 50 mg PO HS [facility] PRN Reason: Protocol Last Admin: 12/31/16 21:38 Dose: 50 mg Tramadol HCl (Ultram) 50 mg PO DAILY PRN; Protocol PRN Reason: Pain, moderate (4-7) Last Admin: 12/31/16 00:28 Dose: 50 mg Warfarin Sodium (Coumadin) 4 mg PO 1800 [facility] PRN Reason: Protocol Last Admin: 12/31/16 17:53 Dose: 4 mg - Labs Labs: 12/31/16 07:00 12/31/16 07:00 PT 17.0 Seconds (9.9-11.8) H 12/31/16 07:00 INR 1.57 (0.93-1.08) H 12/31/16 07:00 Assessment and Plan - Assessment and Plan (Free Text) Assessment: Assessment: S/P mechanical fall Dizziness, resolved CAD, recent PCI, remote PCIs and CABG Severe LVD CHF COPD Diabetes HBP PAF VT ICD Plan: As per Matthieu Wright Warfarin by INR's. Resume 4 mg. daily. OOB/PT/Rehab efforts D/C later today. Out-pt F/U with me in one week.
[2017-01-01] MEDS: Insulin Reg-LOW-Coverage SC SCH ×2 (07:45→11:23)
[2017-01-01] MEDS ORDERED: MethylPREDNISolone 40 mg Vial IVP SCH (09:02)
[2017-01-01] MEDS: BIOTIN PO SCH (10:15)
[2017-01-01] MEDS: diltiaZEM 180 mg/24 Hours CD Cap PO SCH (10:17)
[2017-01-01] MEDS: Non Formulary Medication (Linagliptin [Tradjenta] 5 MG) PO SCH (10:19)
[2017-01-01] MEDS: Insulin Detemir 100 units/ml Vial (Levemir) SC SCH (10:19)
[2017-01-01] MEDS: Non Formulary Medication (Umeclidinium Bromide [Incruse Ellipta] 62.5 MCG) IH SCH (10:20)
[2017-01-01 10:24] VITALS: BP 129/67; PULSE 64
[2017-01-01 11:35] VITALS: TEMP 98.2
[2017-01-01 11:58] LABS: INR 1.98 (0.93-1.08); PROTHROMBIN TIME 21.4 Seconds (9.9-11.8)
[2017-01-01] MEDS: Digoxin 250 mcg (0.25 mg) Tab PO SCH (14:01)
[2017-01-01 14:05] VITALS: PULSE 65
--- NOTE | 2017-01-01 21:47 | PN ---
PULMONARY PROGRESS NOTE DATE: 01/01/2017 REFERRING PHYSICIAN: Dr. Lebron. SUBJECTIVE: She is sitting in a chair. Night was unremarkable. Feels better. No cough, no shortness of breath. No nausea, no vomiting, no diarrhea, leg pain, or leg swelling. PHYSICAL EXAMINATION GENERAL: In no acute distress. VITAL SIGNS: Temp is 98, heart rate 64, respiratory rate is 20, blood pressure 129/67, pulse ox 97% on room air. HEENT: Moist mucous membranes. Crowded airway. Mallampati score is IV. NECK: Supple. No JVD. LUNGS: Fair airflow with rhonchi. HEART: S1 and S2. ABDOMEN: Soft, nontender. No organomegaly. EXTREMITIES: No edema. NEUROLOGIC: Awake, alert, follows simple commands. MEDICATIONS: She is on Biotin 1 tab daily, Brovana inhaled twice a day, Bumex 0.5 mg daily, Cardizem CD 180 mg daily, Claritin 10 mg daily, Colace 100 mg twice a day, Coreg 12.5 mg twice a day, Coumadin 4 mg daily, doxycycline 100 mg twice a day, Ecotrin 81 mg daily, Effient 10 mg daily, ferrous sulfate 324 mg 3 times a day, glipizide 10 mg, and daily insulin coverage, digoxin 0.25 mg daily, Levemir 10 units subcutaneous h.s., Tradjenta 5 mg daily, Lipitor 12 mg daily, Nitrostat p.r.n. basis, Pamelor 10 mg 3 times a day, Pepcid 40 mg daily, budesonide inhaled twice a day, Solu-Medrol 10 mg twice a day, Tylenol p.r.n., Ultram p.r.n. basis, *------* Incruse Ellipta one puff daily, Zestril 20 mg daily, Zofran p.r.n. basis, Zoloft 50 mg daily. LABORATORY DATA: Shows INR 1.98. Blood sugar is 149. IMPRESSION AND PLAN: Status post fall with multiple bruises, exacerbation of chronic lung disease, coronary artery disease, coronary artery bypass surgery, hypertension, diabetes, may have sleep apnea syndrome. Patient refused sleep apnea workup. We will do PFT as an outpatient. Taper dose of steroids. Continue inhaled bronchodilators. Fall precautions. Thank you and we will follow with you. Rosina Gabriel MD [facility] # [id number]
--- NOTE | 2017-01-03 10:38 | DS ---
CHIEF COMPLAINT: Fatigue, tired, and shortness of breath. HISTORY OF PRESENT ILLNESS: Ms. Mallorie Francis is 71 years old, my private patient, has multiple medical problems, came to the hospital emergency room with mechanical fall. Scan was done and no fracture, but she started to have shortness of breath, exacerbation of congestive heart failure, COPD. The patient has history of congestive heart failure, hypertension, diabetes mellitus, readmitted the patient on medical floor. Reservations And Ticketing Agent, Dr. Garcia saw the patient, treated congestive heart failure and Dr. Gabriel treated COPD and asthma, The patient got tapering dose of steroids, got physical therapy, got better and discharged home on 01/01/2017 as per the patient's request because she has some appointment in the social security office. The patient was informed if her condition gets worse to come back to the hospital emergency room, otherwise, follow up with her primary care physician. Prescription of medication given to *------* Pharmacy and they delivered the medicine on the bedside. PAST MEDICAL HISTORY: CABG x3, congestive heart failure, hypertension, COPD, diabetes mellitus, history of former smoking, asthma, history of pneumonia, history of pulmonary emboli, history of ileostomy in 2010, history of irritable bowel syndrome, cardiac catheterization, history of neck fusion. MEDICATIONS: She got in the hospital; Biotin, Cardizem, Claritin, Colace, Coreg, Coumadin, doxycycline, Ecotrin, Effient, iron sulfate, glipizide, insulin, digoxin, Tradjenta, Lipitor, Nitrostat, Pepcid, tapering dose of Solu-Medrol, Tylenol, tramadol, and Zestril. ALLERGIES: THE PATIENT IS ALLERGIC TO PLAVIX, GETTING RASH. HABITS: History of smoking, now quit. No drugs, no ethanol. REVIEW OF SYSTEMS: The patient is examined on the bedside, looks comfortable. No nausea, vomiting or diarrhea. Happy to go home. No hematuria, no hematochezia. No shortness of breath. No chest pain, no palpitations. She is sitting in the chair. Night was unremarkable. No swelling of the leg. PHYSICAL EXAMINATION: VITAL SIGNS: Temperature 98.1, heart rate 64, respiratory rate 18, blood pressure 130/67. HEENT: Head is normocephalic and atraumatic. Eyes: PERRLA. Extraocular muscles intact. Conjunctivae clear. Nose patent. Mucous membranes moist. NECK: Supple. No carotid bruits or thyromegaly. CHEST: Bilaterally symmetrical. HEART: S1 and S2 positive. LUNGS: Clear to auscultation. ABDOMEN: Soft. Bowel sounds present. No organomegaly. EXTREMITIES: No edema, no cyanosis. NEUROLOGICAL: The patient is awake, alert. Moving all 4 extremities. No focal deficit. LABORATORY DATA: INR 1.98. Blood sugar 149. I reviewed old labs. ASSESSMENT AND PLAN: Mallorie Francis is 71 years old, my private patient, with multiple medical problems; history of fall, multiple bruises on extremities and torso got better, coronary artery disease, history of coronary artery bypass surgery, hypertension, diabetes mellitus, sleep apnea syndrome. The patient is here for sleep apnea workup, refuses CPAP or BiPAP. We will do PFT as an outpatient. Got tapering dose of steroid, fall precautions, history of hypertension, mechanical fall, sustained injuries but no known fracture, got successful treatment, got physical therapy and discharged home. Got medicines at the bedside. Will follow up especially for PT/INR appointment. Tanisha Lebron MD
== END 2017-01-01 15:17 | disposition home health service (06) | DRG 292 ==
LOC: TRCU 16:07
PROVIDERS: ADMIT Internal Medicine; ATTEND Internal Medicine
PROC: F07Z9FZ Gait Training/Functional Ambulation Treatment using Assistive, Adaptive, Supportive or Protective Equipment (ICD-10-PCS; principal; 2016-12-30)
PROC: F07Z8ZZ Transfer Training Treatment (ICD-10-PCS; 2016-12-30)
PROC: F07L6ZZ Therapeutic Exercise Treatment of Musculoskeletal System - Lower Back / Lower Extremity (ICD-10-PCS; 2016-12-30)
PROC: F08Z4ZZ Home Management Treatment (ICD-10-PCS; 2017-01-01)
DX: I11.0 Hypertensive heart disease with heart failure (principal); I50.23 Acute on chronic systolic (congestive) heart failure; J44.1 Chronic obstructive pulmonary disease with (acute) exacerbation; I47.2 Ventricular tachycardia; E11.65 Type 2 diabetes mellitus with hyperglycemia; I48.0 Paroxysmal atrial fibrillation; D64.9 Anemia, unspecified; G47.30 Sleep apnea, unspecified; I25.10 Atherosclerotic heart disease of native coronary artery without angina pectoris; I48.2 Chronic atrial fibrillation; S13.9XXD Sprain of joints and ligaments of unspecified parts of neck, subsequent encounter; W19.XXXD Unspecified fall, subsequent encounter; Z79.01 Long term (current) use of anticoagulants; Z95.1 Presence of aortocoronary bypass graft; Z95.810 Presence of automatic (implantable) cardiac defibrillator; Z87.891 Personal history of nicotine dependence; Z79.4 Long term (current) use of insulin

== ENCOUNTER 2017-03-31 14:52 | Inpatient (IN) | payer MEDICARE, MEDICAID ==
--- NOTE | 2017-03-31 15:07 | ED PDOC ---
Arrival/HPI - General Chief Complaint: Chest Pain Time Seen by Provider: 03/31/17 14:55 Historian: Patient, Family (Son) - Critical Care Critical Care Minutes: 30 minutes - History of Present Illness Time/Duration: Other (Last night) Symptom Onset: Gradual Symptom Course: Unchanged Quality: Pressure, Tightness Severity Level: Mild Activities at Onset: Rest Associated Symptoms (Text): 03/31/17 15:04 Patient complains of intermittent chest pain which she describes as a heaviness beginning sometime last night. She's had increasing shortness of breath for the last several days. No cough congestion or URI. No fever or chills. No sputum production. Past Medical History - Infectious Disease Hx of Infectious Diseases: None - Cardiac Hx Cardiac Disorders: Yes Hx Congestive Heart Failure: Yes - Pulmonary Hx Chronic Obstructive Pulmonary Disease (COPD): Yes - Neurological Hx Neurological Disorder: No - HEENT Hx HEENT Disorder: No Hx Blind: (wear glasses) - Renal Hx Renal Disorder: No - Endocrine/Metabolic Hx Diabetes Mellitus Type 2: Yes - Hematological/Oncological Hx Blood Disorders: No - Integumentary Hx Dermatological Disorder: No - Musculoskeletal/Rheumatological Hx Falls: Yes (3x's in 1 1/2 months) - Gastrointestinal Hx Gastrointestinal Disorders: (ileostomy reversal) - Genitourinary/Gynecological Hx Reproductive Disorders: No - Psychiatric Hx Psychophysiologic Disorder: No Hx Substance Use: No - Surgical History Hx Cardiac Catheterization: Yes Hx Coronary Stent: Yes Hx Musculoskeletal Surgery: Yes (neck fusion) Hx Open Heart Surgery: Yes - Anesthesia Hx Anesthesia: Yes Hx Anesthesia Reactions: No Hx Malignant Hyperthermia: No - Suicidal Assessment Feels Threatened In Home Enviroment: No Family/Social History - Physician Review Nursing Documentation Reviewed: Yes Family/Social History: Unknown Family HX Smoking Status: Former Smoker Hx Alcohol Use: No Hx Substance Use: No Allergies/Home Meds Allergies/Adverse Reactions: Allergies clopidogrel bisulfate [From Plavix] Allergy (Verified 03/31/17 18:27) RASH Home Medications: Home Meds Medication Instructions Recorded Confirmed GlipiZIDE [Glucotrol] 10 mg PO DAILY 03/22/14 03/31/17 Nortriptyline HCl 10 mg PO TID 03/22/14 03/31/17 Warfarin [Coumadin] 4 mg PO DAILY 03/22/14 03/31/17 Aspirin [Ecotrin] 81 mg PO DAILY 10/20/15 03/31/17 Diltiazem HCl [Cardizem Cd] 180 mg PO DAILY 10/20/15 03/31/17 Nitroglycerin [Nitrostat] 0.4 mg SL PRN PRN 10/20/15 03/31/17 traMADol [Ultram] 50 mg PO DAILY PRN 10/20/15 03/31/17 Atorvastatin [Lipitor] 20 mg PO DAILY 08/21/16 03/31/17 Bumetanide [Bumex] 0.5 mg PO DAILY 08/21/16 03/31/17 Carvedilol [Coreg] 12.5 mg PO BID 08/21/16 03/31/17 Linagliptin [Tradjenta] 5 mg PO DAILY 08/21/16 03/31/17 Lisinopril [Zestril] 20 mg PO DAILY 08/21/16 03/31/17 Sertraline [Zoloft] 50 mg PO HS 08/21/16 03/31/17 Umeclidinium [place] [Incruse 62.5 mcg IH DAILY 08/21/16 03/31/17 Ellipta] Prasugrel [Effient] 10 mg PO DAILY 08/28/16 03/31/17 Biotin 1 tab PO DAILY 10/12/16 03/31/17 Fluticasone/Salmeterol [Advair 1 puff IH BID 10/12/16 03/31/17 250-50 Diskus] Insulin Detemir [Levemir] 12 units SQ DAILY 10/12/16 03/31/17 Acetylcysteine 1 mg INH QID 12/24/16 03/31/17 Albuterol/Ipratropium [Duoneb 3 3 ml INH QID 12/24/16 03/31/17 mg/0.5 mg (3 ml) UD] Doxylamine Succinate [Unisom Sleep 25 mg PO DAILY 12/24/16 03/31/17 Aid] Furosemide [Lasix] 40 mg PO BID 12/24/16 03/31/17 Levocetirizine Dihydrochloride 5 mg PO DAILY 12/24/16 03/31/17 [Xyzal] hydrALAZINE [Apresoline] 25 mg PO Q6 12/24/16 03/31/17 Atropine/Diphenoxylate 2.5 mg PO PRN PRN 12/28/16 03/31/17 Fluticasone/Salmeterol 250/50 1 puff IH BID 12/28/16 03/31/17 [Advair Diskus 250/50] Lisinopril [Zestril] 20 mg PO DAILY 12/28/16 03/31/17 Review of Systems - Physician Review All systems were reviewed & negative as marked: Yes - Review of Systems Constitutional: Fatigue. absent: Fevers Respiratory: SOB. absent: Cough, Sputum, Wheezing Cardiovascular: Chest Pain. absent: Palpitations, Syncope Gastrointestinal: absent: Abdominal Pain, Diarrhea, Nausea, Vomiting Neurological: absent: Headache, Dizziness, Focal Weakness Physical Exam Vital Signs Temp Pulse Resp BP Pulse Ox 03/31/17 15:39 116/65 03/31/17 15:15 19 03/31/17 15:04 97.6 F 93 H 19 116/65 95 Temperature: Afebrile Blood Pressure: Normal Pulse: Regular Respiratory Rate: Normal Appearance: Positive for: Well-Appearing, Non-Toxic, Uncomfortable Pain Distress: None Mental Status: Positive for: Alert and Oriented X 3 - Systems Exam Head: Present: Atraumatic, Normocephalic Pupils: Present: PERRL Extroacular Muscles: Present: EOMI Conjunctiva: Present: Normal Mouth: Present: Moist Mucous Membranes Pharnyx: No: ERYTHEMA, EXUDATE, TONSILS ENLARGED Neck: Present: Normal Range of Motion. No: MIDLINE TENDERNESS, Paraspinal Tenderness Respiratory/Chest: Present: Respiratory Distress, Accessory Muscle Use, Decreased Breath Sounds, Rales (Right greater than left basilar rales), Retracting, Tachypneic. No: Wheezes, Rhonchi, Tender to Palpation Cardiovascular: Present: Regular Rate and Rhythm, Tachycardic Abdomen: Present: Normal Bowel Sounds. No: Tenderness, Distention, Peritoneal Signs, Rebound, Guarding Back: Present: Normal Inspection. No: CVA Tenderness, Midline Tenderness, Paraspinal Tenderness Upper Extremity: Present: Normal Inspection. No: Cyanosis, Edema Lower Extremity: Present: Edema (Trace edema bilateral lower extremities) Neurological: Present: GCS=15, CN II-XII Intact, Speech Normal, Motor Func Grossly Intact Skin: Present: Warm, Dry, Normal Color. No: Rashes Psychiatric: Present: Alert, Oriented x 3, Normal Insight, Normal Concentration Medical Decision Making ED Course and Treatment: 03/31/17 15:10 EKG is pacing rate approximately 110 03/31/2017 15:43 Chest X-ray IMPRESSION: Moderate cardiomegaly and moderate vascular congestion. Dictator: Ramu Perez MD 03/31/17 16:[address] Lebron. She is aware of the elevated d-dimer. I feel that the patient's problem is cardiac, and this does not appear to be a pulmonary embolus and no emergent CTA was necessary. Dr Lebron is in agreement. 03/31/17 16:[address] Lebron and Dr. Simpson, whom agree to take patient under service. - Lab Interpretations Lab Results: 03/31/17 16:00 03/31/17 16:00 Lab Results 03/31/17 16:00: Sodium 137, Potassium 4.3, Chloride 102, Carbon Dioxide 24, Anion Gap 15, BUN 24 H, Creatinine 0.9, Est GFR ( Amer) > 60, Est GFR ( Non-Af Amer) > 60, Random Glucose 188 H, Calcium 9.7, Total Bilirubin 0.7, AST 57 H, ALT 40, Alkaline Phosphatase 115, Lactate Dehydrogenase 450, Total Creatine Kinase 103, Troponin I 2.95 H* D, NT-Pro-B Natriuret Pep 5260 H, Total Protein 7.1, Albumin 4.2, Globulin 2.9, Albumin/Globulin Ratio 1.4 03/31/17 16:00: PT 22.5 H, INR 2.08 H, APTT 39.2 H, D-Dimer, Quantitative 1.26 H 03/31/17 16:00: WBC 14.2 H D, RBC 3.79, Hgb 11.6 L, Hct 34.2 L, MCV 90.2, MCH 30.6, MCHC 33.9, RDW 15.9 H, Plt Count 289, MPV 8.6, Gran % 87.0 H, Lymph % ( Auto) 6.5 L, [place] % (Auto) 5.5, Eos % (Auto) 0.8 L, Baso % (Auto) 0.2, Gran # 12.33 H, Lymph # 0.9 L, [place] # 0.8 H, Eos # 0.1, Baso # 0.03 - RAD Interpretation Radiology Orders: 03/31/17 15:02 CHEST PORTABLE [RAD] Stat - Medication Orders Current Medication Orders: Albuterol/Ipratropium (Duoneb 3 Mg/0.5 Mg (3 Ml) Ud) 3 ml INH QID [facility] Arformoterol Tartrate (Brovana) 15 mcg IH [id number] [facility] Aspirin (Ecotrin) 81 mg PO DAILY [facility] Atorvastatin Calcium (Lipitor) 20 mg PO DAILY [facility] Budesonide (Pulmicort Respules) 0.5 mg IH [id number] Bumetanide (Bumex) 0.5 mg PO DAILY [facility] Carvedilol (Coreg) 12.5 mg PO BID [facility] Diltiazem HCl (Cardizem Cd) 180 mg PO DAILY [facility] Furosemide (Lasix) 40 mg PO BID [facility] Glipizide (Glucotrol) 10 mg PO DAILY [facility] Hydralazine HCl (Apresoline) 25 mg PO Q6 [facility] Heparin Sodium/Dextrose (Heparin 25,000 Units/250ml In D5w) 25,000 units in 250 mls @ 9.199 mls/hr IV .Q24H ZAIRE; 12 UNITS/KG/HR PRN Reason: Protocol Last Admin: 03/31/17 17:52 Dose: 12 units/kg/hr, 9.199 mls/hr eMAR Start Stop Document 03/31/17 17:52 OCS (Rec: 03/31/17 17:53 OCS [id number]) Intravenous Solution Start Date 03/31/17 Start Time 17:53 MAR aPTT Document 03/31/17 17:52 OCS (Rec: 03/31/17 17:53 OCS [id number]) aPTT aPTT (secs) 39.2 Titration Intervention Document 03/31/17 17:52 OCS (Rec: 03/31/17 17:53 OCS [id number]) Titration Intake Waste Amount 0 Container Volume 250 Titration Dosing Titration Dose 12 IV Rate 9.199 Intake/Decrease Started Lisinopril (Zestril) 20 mg PO DAILY [facility] Nitroglycerin (Nitrostat Sl Tab) 0.4 mg SL PRN PRN PRN Reason: CHEST PAIN Levocetirizine Dihydrochloride [ Xyzal] 5 Mg 5 mg PO DAILY [facility] Linagliptin [ (Tradjenta] 5 Mg) 5 mg PO DAILY [facility] Umeclidinium [place] [Incruse Ellipta] 62.5 Mcg) 62.5 mcg IH DAILY [facility] Nortriptyline HCl (Pamelor) 10 mg PO TID [facility] Prasugrel (Effient) 10 mg PO DAILY [facility] Sertraline HCl (Zoloft) 50 mg PO HS [facility] Warfarin Sodium (Coumadin) 4 mg PO 1800 [facility]AIRE Discontinued Medications Bumetanide (Bumex) 0.5 mg PO DAILY [facility] Furosemide (Lasix) 40 mg IVP STAT STA Stop: 03/31/17 15:02 Last Admin: 03/31/17 15:39 Dose: 40 mg MAR Blood Pressure Document 03/31/17 15:39 OCS (Rec: 03/31/17 15:40 OCS [id number]) Blood Pressure Blood Pressure (100/60-150/90) 116/65 IVP Administration Document 03/31/17 15:39 OCS (Rec: 03/31/17 15:40 OCS [id number]) Charges for Administration # of IVP Administrations 1 Heparin Sodium (Porcine) (Heparin) 4,000 units IV ONCE ONE PRN Reason: Protocol Stop: 03/31/17 16:54 Last Admin: 03/31/17 17:50 Dose: Heparin Sodium (Porcine) (Heparin) 5,000 units IV ONCE ONE PRN Reason: Protocol Stop: 03/31/17 18:01 Last Admin: 03/31/17 17:52 Dose: 5,000 units eMAR Start Stop Document 03/31/17 17:52 OCS (Rec: 03/31/17 17:52 OCS [id number]) Intravenous Solution Start Date 03/31/17 Start Time 17:52 MAR aPTT Document 03/31/17 17:52 OCS (Rec: 03/31/17 17:52 OCS [id number]) aPTT aPTT (secs) 39.2 Nitroglycerin (Nitro-Bid 2% Oint) 1 ea TOP STAT STA Stop: 03/31/17 16:34 Last Admin: 03/31/17 17:44 Dose: 1 ea Fluticasone/Salmeterol (Advair Diskus 250/50) 1 puff IH BID [facility]AIRE Disposition/Present on Arrival - Present on Arrival Any Indicators Present on Arrival: No History of DVT/PE: No History of Uncontrolled Diabetes: No Urinary Catheter: No History of Decub. Ulcer: No History Surgical Site Infection Following: None - Disposition Have Diagnosis and Disposition been Completed?: Yes Diagnosis: Congestive heart failure, Elevated troponin, Chest pain, Myocardial infarction Disposition: HOSPITALIZED Disposition Time: 16:57 Patient Plan: Admission, Telemetry Patient Problems: Current Active Problems Problem Status Onset Chest pain Acute Congestive heart failure Acute Elevated troponin Acute Myocardial infarction Acute Condition: CRITICAL
--- NOTE | 2017-03-31 15:45 | RAD ---
HISTORY: cp COMPARISON: 12/24/2016 FINDINGS: LUNGS: No active pulmonary disease. PLEURA: No significant pleural effusion identified, no pneumothorax apparent. CARDIOVASCULAR: Moderate cardiomegaly and moderate vascular congestion. Findings are similar to the previous study OSSEOUS STRUCTURES: Sternal wires VISUALIZED UPPER ABDOMEN: Normal. OTHER FINDINGS: None. IMPRESSION: Moderate cardiomegaly and moderate vascular congestion
[2017-03-31 16:10] LABS: BASO # 0.03 K/mm3 (0.0-2.0); BASO % 0.2 % (0.0-3.0); EOS # 0.1 (0.0-0.7); EOS % 0.8 % (1.5-5.0); GRAN # 12.33 (1.4-6.5); HEMATOCRIT 34.2 % (36.0-48.0); LYMPH # 0.9 (1.2-3.4); LYMPH % 6.5 % (22.0-35.0); MEAN CELL VOLUME 90.2 fl (80.0-105.0); MEAN CORPUSCULAR HEMOGLOBIN 30.6 pg (25.0-35.0); MEAN CORPUSCULAR HGB CONC 33.9 g/dl (31.0-37.0); MEAN PLATELET VOLUME 8.6 fl (7.0-11.0); MONO # 0.8 (0.1-0.6); MONO % 5.5 % (1.0-6.0); RED CELL DISTRIBUTION WIDTH 15.9 % (11.5-14.5); WHITE BLOOD COUNT 14.2 10^3/ul (4.5-11.0)
[2017-03-31 16:15] LABS: CHLORIDE 102 mmol/L (98-107)
[2017-03-31 16:18] LABS: ALB/GLOB RATIO 1.4 (1.1-1.8); ALKALINE PHOSPHATASE 115 U/L (38-126); ALT/SGPT 40 U/L (7-56); AST/SGOT 57 U/L (14-36); BILIRUBIN,TOTAL 0.7 mg/dL (0.2-1.3); BLOOD UREA NITROGEN 24 mg/dL (7-21); CALCIUM 9.7 mg/dL (8.4-10.5); CARBON DIOXIDE 24 mmol/L (21-33); GFR AFRICAN-AMERICAN > 60; GLUCOSE,RANDOM 188 mg/dL (70-110); POTASSIUM 4.3 mmol/L (3.6-5.0); SODIUM 137 mmol/L (132-148); TOTAL PROTEIN 7.1 g/dL (5.8-8.3)
[2017-03-31 16:24] LABS: INR 2.08 (0.93-1.08); PARTIAL THROMBOPLASTIN TIME 39.2 Seconds (23.7-30.8)
[2017-03-31 16:25] LABS: D DIMER 1.26 mg/L FEU (0-0.50)
[2017-03-31 16:31] LABS: TROPONIN I 2.95 ng/mL
[2017-03-31] MEDS ORDERED: Nitroglycerin 2% Ointment Foilpak UD TOP STA (16:33)
[2017-03-31] MEDS ORDERED: Heparin 25,000units in D5W 25,000 UNITS/250 ML BAG IV SCH (17:00)
[2017-03-31 17:43] VITALS: BMI 25.7
[2017-03-31] MEDS ORDERED: Heparin 25,000units in D5W/250 ML BAG IV SCH (18:00)
--- NOTE | 2017-03-31 19:44 | CARD ---
APPROVED REPORT EKG Measurement Heart [id number] <Conclusion> Atrial sensed, ventricular paced rhythm
[2017-03-31] MEDS ORDERED: Fluticasone-Salmeterol 250-50mcg Diskus IH SCH (20:00)
[2017-03-31] MEDS: Albuterol-Ipratrop 3 mg / 0.5 (3 ml) UD INH SCH (21:15)
--- NOTE | 2017-04-01 03:10 | HP ---
CHIEF COMPLIANT: Chest pain and shortness of breath. HISTORY OF PRESENT ILLNESS: Ms. Tito Nobles is a 72-year-old lady with past medical history of multiple medical problems, came with chest pain, intermittent, like pressure and tightness, mild, describes that heaviness, beginning sometimes last night. She had increasing shortness of breath for the last several days. No cough, congestion or upper respiratory tract infection. No fever. No chills. No sputum production. Actually, the patient went to see her grandkid and had fun time over there, and she started shortness of breath when she came back. PAST MEDICAL HISTORY: Congestive heart failure, COPD, diabetes mellitus type 2, fall, ileostomy reversal, coronary artery disease with cardiac stenting, neck fusion, history of open heart surgery and has pacemaker. FAMILY HISTORY: Father and mother noncontributory. HABITS: Former smoker. Now no smoking. No drug. No ethanol. ALLERGIES: THE PATIENT IS ALLERGIC WITH PLAVIX. HOME MEDICATIONS: Glucotrol, Coumadin, Ecotrin, Cardizem, Nitrostat, tramadol, Lipitor, Bumex, Coreg, Tradjenta, Zestril, Zoloft, Effient, Advair, Levemir, DuoNeb, Lasix, Xyzal and hydralazine. REVIEW OF SYSTEMS: The patient was seen and examined on the bedside in the telemetry, still complaining about once in a while chest pain and shortness of breath. Feeling fatigue and tired, but no fever. No sputum production. No palpitation or syncopal attack. No abdominal pain, diarrhea, nausea or vomiting. No headache, no dizziness, no focal weakness. PHYSICAL EXAMINATION: VITAL SIGNS: Temperature 97.6, pulse 93, respiratory rate 19, blood pressure 116/65 and pulse oximetry 95%. HEENT: Head is normocephalic, atraumatic. Eyes; PERRLA. Extraocular muscles intact. Conjunctivae clear. Nose patent. Mucous membrane moist. NECK: Supple. No carotid bruits. No JVD or thyromegaly. LUNGS: Decreased breath sounds bilaterally, right greater than left with rales, tachypneic. CARDIOVASCULAR: Regular rate and rhythm on tachycardia. ABDOMEN: Soft. Bowel sounds positive. No organomegaly. EXTREMITIES: No edema. No cyanosis. BACK: No CVA tenderness, midline tenderness, paraspinal tenderness. SKIN: Warm, dry, normal color. No rashes. LABORATORY DATA: White blood cells 14.2, hemoglobin 11.6, hematocrit 34.2 and platelets are 289. Sodium 137, potassium 4.3, BUN 24, creatinine 0.9 and glucose 188. ASSESSMENT AND PLAN: Ms. Tito Nobles is a 72 year old lady with leukocytosis, anemia, hyperglycemia, came with chest pain and shortness of breath, seen by Dr. David Garcia in the ER, has discussion done with him. Chest x ray and echocardiography reviewed by me. The patient has history of chronic obstructive pulmonary disease, diabetes mellitus type 2, ileostomy reversal, neck fusion, call Cardiology consult also. Restarted old medications. Gastrointestinal and deep venous thrombosis prophylaxis. Repeat labs. We will follow up. Tanisha Lebron MD MTDD
[2017-04-01] MEDS ORDERED: Morphine 2 mg/ml ISec IVP STA (03:55)
[2017-04-01] MEDS ORDERED: Nitroglycerin 2% Ointment Foilpak UD TOP STA (03:55)
--- NOTE | 2017-04-01 04:37 | CP.PCM.PN ---
Subjective - Date & Time of Evaluation Date of Evaluation: 04/01/17 Time of Evaluation: 04:24 - Subjective Subjective: called by nurse pt is c/o substernal chest pain.pt is c/o substernal chest pain 6/10 radiating to both shoulders.pt had troponine positive on admission and is placed on heparin.pt also has hx of copd . Objective - Vital Signs/Intake and Output Vital Signs (last 24 hours): Temp Pulse Resp BP Pulse Ox 99.1 F 92 H 18 133/78 96 03/31/17 23:34 04/01/17 02:00 03/31/17 23:34 03/31/17 23:34 03/31/17 23:34 - Medications Medications: Current Medications Albuterol/Ipratropium (Duoneb 3 Mg/0.5 Mg (3 Ml) Ud) 3 ml INH QID [facility] Last Admin: 03/31/17 21:15 Dose: 3 ml Arformoterol Tartrate (Brovana) 15 mcg IH [id number] [facility] Aspirin (Ecotrin) 81 mg PO DAILY [facility] Atorvastatin Calcium (Lipitor) 20 mg PO DAILY [facility] Budesonide (Pulmicort Respules) 0.5 mg IH [id number] [facility]AI[facility] Bumetanide (Bumex) 0.5 mg PO DAILY [facility] Carvedilol (Coreg) 12.5 mg PO BID [facility] Diltiazem HCl (Cardizem Cd) 180 mg PO DAILY [facility] Furosemide (Lasix) 40 mg PO BID [facility] Glipizide (Glucotrol) 10 mg PO DAILY [facility] Hydralazine HCl (Apresoline) 25 mg PO Q6 [facility] Heparin Sodium/Dextrose (Heparin 25,000 Units/250ml In D5w) 25,000 units in 250 mls @ 9.199 mls/hr IV .Q24H ZAIRE; 12 UNITS/KG/HR PRN Reason: Protocol Last Admin: 03/31/17 17:52 Dose: 12 units/kg/hr, 9.199 mls/hr Lisinopril (Zestril) 20 mg PO DAILY [facility] Nitroglycerin (Nitrostat Sl Tab) 0.4 mg SL PRN PRN PRN Reason: CHEST PAIN Levocetirizine Dihydrochloride [ Xyzal] 5 Mg 5 mg PO DAILY [facility] Linagliptin [ (Tradjenta] 5 Mg) 5 mg PO DAILY [facility] Umeclidinium [place] [Incruse Ellipta] 62.5 Mcg) 62.5 mcg IH DAILY [facility] Nortriptyline HCl (Pamelor) 10 mg PO TID [facility] Prasugrel (Effient) 10 mg PO DAILY [facility] Sertraline HCl (Zoloft) 50 mg PO HS [facility] Last Admin: 03/31/17 22:52 Dose: 50 mg Warfarin Sodium (Coumadin) 4 mg PO 1800 [facility] - Labs Labs: PT 22.5 Seconds (9.9-11.8) H 03/31/17 16:00 INR 2.08 (0.93-1.08) H 03/31/17 16:00 APTT 54.2 Seconds (23.7-30.8) H 04/01/17 01:08 - Constitutional Appears: No Acute Distress - Head Exam Head Exam: NORMOCEPHALIC - Eye Exam Eye Exam: Normal appearance Pupil Exam: PERRL - ENT Exam ENT Exam: Mucous Membranes Moist - Neck Exam Neck Exam: Full ROM - Respiratory Exam Respiratory Exam: Decreased Breath Sounds, Rales Additional comments: pt has rales in the left lower lung area. - Cardiovascular Exam Cardiovascular Exam: RRR, +S1 - GI/Abdominal Exam GI & Abdominal Exam: Soft - Rectal Exam Rectal Exam: Deferred - Extremities Exam Extremities Exam: Full ROM - Neurological Exam Neurological Exam: Alert, Awake - Psychiatric Exam Psychiatric exam: Normal Affect - Skin Skin Exam: Dry, Warm Assessment and Plan - Assessment and Plan (Free Text) Assessment: chest pain /ekg electronic pacemaker. hx of diabetes . chf Plan: nitro sublingual and morphine 2 mg x1 . nitropaste 1 inch to chest wall.stat ekg,cardiac iso stat. lasix 40 mg x1 stat.
[2017-04-01 04:45] LABS: HEMATOCRIT 31.7 % (36.0-48.0); MEAN CELL VOLUME 90.1 fl (80.0-105.0); MEAN CORPUSCULAR HEMOGLOBIN 30.1 pg (25.0-35.0); MEAN CORPUSCULAR HGB CONC 33.4 g/dl (31.0-37.0); MEAN PLATELET VOLUME 8.9 fl (7.0-11.0); WHITE BLOOD COUNT 10.6 10^3/ul (4.5-11.0)
[2017-04-01 04:46] LABS: INR 2.03 (0.93-1.08); PARTIAL THROMBOPLASTIN TIME 52.1 Seconds (23.7-30.8)
[2017-04-01 05:12] LABS: IRON 24 ug/dL (45-180)
[2017-04-01 05:21] LABS: BLOOD UREA NITROGEN 22 mg/dL (7-21); CALCIUM 9.6 mg/dL (8.4-10.5); CARBON DIOXIDE 25 mmol/L (21-33); CHLORIDE 101 mmol/L (95-110); CHOLESTEROL 168 mg/dL (130-200); GFR AFRICAN-AMERICAN > 60; GLUCOSE,RANDOM 178 mg/dL (70-110); POTASSIUM 3.9 mmol/L (3.6-5.0); SODIUM 136 mmol/L (132-148)
[2017-04-01 05:40] LABS: TROPONIN I 6.09 ng/mL
[2017-04-01] MEDS: Arformoterol 15 mcg/2 ml Inh Sol IH SCH ×2 (07:25→19:39)
[2017-04-01] MEDS: Budesonide 0.5 mg/2 ml Inhal Susp UD IH SCH ×2 (07:26→19:39)
[2017-04-01] MEDS: Albuterol-Ipratrop 3 mg / 0.5 (3 ml) UD INH SCH ×4 (07:26→19:39)
[2017-04-01] MEDS ORDERED: Non Formulary Medication (Warfarin [Coumadin] 4 MG) PO SCH (10:00)
[2017-04-01] MEDS: Umeclidinium Bromide [Incruse Ellipta] 62.5 MCG) IH SCH (10:00)
--- NOTE | 2017-04-01 10:15 | CON ---
DATE: 04/01/2017 CONSULTATION INDICATIONS: Chest pain and shortness of breath, NSTEMI, CHF. HISTORY OF PRESENT ILLNESS: This is a 72-year-old woman, well-known to me, admitted yesterday through the emergency room. She presented with a history of increasing chest discomfort. This was a heavy sensation radiating into both arms with associated shortness of breath, it got worse, she came to the emergency room and she was admitted to telemetry. During the night, she had another severe episode of chest discomfort with bilateral arm heaviness and shortness of breath. This morning, she is more comfortable without chest pain or shortness of breath currently. There was no syncope, presyncope, lightheadedness, dizziness, vertigo, palpitation, shocks, fever, chills, cough, sputum production, hemoptysis, abdominal pain, nausea, vomiting, diarrhea, constipation, melena. PAST MEDICAL HISTORY: Complex. She has severe coronary artery disease with severe LV dysfunction. In 08/2016, she presented with an NSTEMI. She underwent cardiac catheterization which disclosed patent bypass grafts and stents, but severe right coronary disease. Stents were placed in the ostial and mid segments of the right coronary artery at that time. She has a history of remote coronary bypass surgery, nonsustained ventricular tachycardia, defibrillator in place, paroxysmal atrial fibrillation; hypertension; diabetes; hyperlipidemia; COPD; cerebrovascular disease; colon resection with ileostomy; depression; chronic pain and insomnia. MEDICATIONS: At the time of admission, her medication list included hydralazine, biotin, diltiazem, Colace, Coreg, warfarin, digoxin, DuoNeb, aspirin, Effient, Feosol, Glucotrol, Lasix, Levemir, Lipitor, nitroglycerin p.r.n., nortriptyline, Pepcid, Singulair, Symbicort, Tradjenta, tramadol, Ventolin, Xyzal, lisinopril and Zoloft. ALLERGIES: SHE NOTES AN ALLERGY TO PLAVIX. SOCIAL HISTORY: She lives alone at home. She is ambulatory but limited. She does not smoke. She does not drink alcohol. FAMILY HISTORY: Noncontributory. REVIEW OF SYSTEMS: Ten-point review of systems is otherwise unremarkable except as noted above. PHYSICAL EXAMINATION: GENERAL: She is a well-developed elderly woman, lying in bed on Telemetry, in no acute distress. VITAL SIGNS: Telemetry shows a V-paced rhythm. She is afebrile. Blood pressure 113/65, respirations 18 to 22 and O2 saturation 97% on nasal cannula and room air. HEENT EXAM: Reveals neck vein distention. No thyromegaly. No carotid bruit appreciated. Mucous membranes are moist. Conjunctivae are pink. NECK: Supple. LUNGS: Reveal bilateral crackles at the bases, few rhonchi scattered. HEART: Reveals normal first and second heart sounds. There was a systolic murmur along the left sternal border. The PMI is laterally displaced. ABDOMEN: Soft. Bowel sounds are present. No mass, organomegaly, tenderness, rebound, guarding, CVA tenderness or palpable abdominal aortic aneurysm. EXTREMITIES EXAM: Reveals no cyanosis, clubbing or edema. NEUROLOGICALLY: She was awake, alert and oriented. PSYCHIATRIC: Normal as to mood and affect. SKIN: Warm and dry. No rash or cellulitis. LABORATORY AND IMAGING: EKG demonstrates a ventricular-paced rhythm, it is unchanged. A portable chest x-ray revealed moderate vascular congestion and moderate cardiomegaly. White count 14,200, repeat 10,600; hemoglobin 10.6; hematocrit 31.7; platelet counts normal. PT, INR and PTT consistent with warfarin therapy. Today's INR is 2.03. D-dimer elevated at 1.26. Electrolytes, BUN and creatinine unremarkable. Blood sugars in the 188 to 178 range. CK of 103, repeat 75. Troponin 2.95, repeat 6.09. BNP 5260, repeat 7560. Total cholesterol 168, LDL 87, HDL 33 and triglycerides 305. TSH is normal. IMPRESSION: Mallorie Francis is a 72-year-old woman with severe coronary artery disease, status post remote coronary bypass surgery, status post coronary stents including the most recent intervention in 08/2016. At that time, the right coronary artery was severely diseased and 2 stents were placed in the ostium and midportion. She has severe LV dysfunction. She has a defibrillator. She has chronic class III to class IV congestive heart failure and multiple medical problems as outlined above. At this time, she is admitted to telemetry. We will give her IV Lasix. We will get serial EKGs and enzymes. I will review her old records. We will continue her usual cardiac medications. Lasix will be given IV. She will get hydralazine, diltiazem, Coreg, warfarin monitored by daily INRs, aspirin, Effient, Glucotrol, digoxin, Lipitor, nitroglycerin p.r.n. and lisinopril. I will discontinue IV heparin at this time since she is anticoagulated with warfarin. She can be out of bed to a chair. We will monitor I's and O's carefully. I will get an echocardiogram. If chest pain continues, we may have to intervene with a cardiac catheterization to delineate her current coronary anatomy. We will monitor stool for occult blood. She will get her pulmonary medications. She will have a pulmonary consultation. I will follow along with you. I will make additional recommendations based on her clinical course. Nas Kemp MD [email or web address]
[2017-04-01 13:10] LABS: FOLATE > 20.0 ng/mL
[2017-04-01] MEDS: Digoxin 125 mcg (0.125 mg) Tab PO SCH (14:50)
--- NOTE | 2017-04-01 22:15 | CARD ---
APPROVED REPORT EKG Measurement Heart [id number] <Conclusion> Atrial sensed, ventricular paced rhythm
[2017-04-01 22:24] LABS: TROPONIN I 3.96 ng/mL
--- NOTE | 2017-04-02 01:59 | PN ---
DATE: SUBJECTIVE: The patient is a 72-year-old female. The patient was seen and examined on the bedside, sleepy, arousable. Today, she had an episode of chest pain. Seen by Dr. Leona Blackwood, hospitalist for chest pain. According to the patient, the pain was 6/10, radiating to both shoulders. The patient had troponin positive on admission and is getting heparin. Educational Aid is on the case. No nausea, vomiting, diarrhea. No hematuria or hematochezia. No swelling of the leg. No headache. No dizziness. PHYSICAL EXAMINATION: VITAL SIGNS: Temperature 97.6, pulse 77, blood pressure 126/61. HEENT: Head, normocephalic, atraumatic. Eyes: PERRLA. Extraocular muscles intact. Conjunctiva clear. Nose patent. NECK: Supple. No carotid bruits or thyromegaly. CHEST: Bilaterally symmetrical. HEART: S1 and S2 positive. LUNGS: Clear to auscultation. ABDOMEN: Soft. Bowel sounds present. No organomegaly. EXTREMITIES: No edema. No cyanosis. NEUROLOGIC: The patient is awake, alert, moving all 4 extremities. No focal deficit. LABORATORY DATA: White blood cells is 10.6, on admission it was 14.2, hemoglobin 10.6, hematocrit 31.7, platelets 296. Sodium 136, potassium 3.6, BUN 22, creatinine 1.0, glucose 178, troponin 6.09, on admission it was 2.95. BNP 7516, on admission it was 5250, triglyceride 305. MEDICATIONS: Hydralazine, Brovana, Bumex, Cardizem, Claritin, Coreg, Coumadin, Ecotrin, Effient, Glucotrol, digoxin, glipizide, Lipitor, Nitrostat, nortriptyline, Pepcid, Pulmicort, Zestril, Zoloft. ASSESSMENT AND PLAN: Ms. Mallorie Francis is a 72-year-old lady with increased BUN, uncontrolled diabetes mellitus, hemoglobin A1c is 7.7, iron deficiency, abnormal liver function test, troponin is positive, congestive heart failure, BNP is increasing, hypertriglyceridemia, anemia, history of leukocytosis, has history of coronary disease with severe left ventricular dysfunction. The patient has history of non-ST elevation myocardial infarction, went for cardiac catheterization, which discloses patent bypass graft and stents but severe right coronary disease. Stent was placed in the ostial and mid segment ostial right coronary artery at that time. She has history of remote coronary artery bypass surgery, nonsustained ventricular tachycardia, defibrillator is in place, possible atrial fibrillation, getting Coumadin, hypotension, diabetes mellitus, hypercholesterolemia, congestive heart failure, chronic obstructive pulmonary disease, cerebrovascular accident, colon resection with ileostomy, depression, chronic pain syndrome and insomnia. She has defibrillator. The patient has class III to class IV congestive heart failure, multiple medical problems, getting IV Lasix. Serial of EKG and enzymes, but enzymes are trending up. According to Dr. Kemp, continue routine medications. He discontinued heparin at this time since she is anticoagulated with warfarin. He is given permission to get out of the chair and he will get echocardiography. Maybe, the patient need again cardiac catheterization. Continue present treatment. Appreciated Dr. Kemp's input. We will follow up. Tanisha Lebron MD
--- NOTE | 2017-04-02 04:26 | CON ---
DATE: 04/01/2017 REFERRING PHYSICIAN: Dr. Lebron. REASON FOR CONSULTATION: Shortness of breath. HISTORY OF PRESENT ILLNESS: This is a 72-year-old female, well known to me for multiple medical problems including chronic obstructive lung disease, sleep apnea syndrome, congestive heart failure, coronary artery disease, history of coronary bypass surgery, diabetes, and history of cervical spine injury in the past, admitted with chest pain and shortness of breath, found to have non-Q-wave MN. Does have a cough, some sputum production. No nausea, no vomiting or diarrhea. No leg pain or leg swelling. PAST MEDICAL HISTORY: Chronic obstructive lung disease, congestive heart failure, coronary artery disease, history of coronary stent, has a cardiac pacemaker. ALLERGIES: TO PLAVIX. FAMILY HISTORY: No significant cardiopulmonary disease reported. MEDICATIONS: She is on hydralazine 25 mg q. 6 hours, Brovana 15 mcg inhaled twice a day, Bumex 0.5 mg daily, Cardizem CD 180 mg daily, Claritin 10 mg daily, Coreg 12.5 mg twice a day, Coumadin 4 mg which is on hold, DuoNeb q. 6 hours, Ecotrin 81 mg daily, Effient 10 mg daily, glipizide 10 mg daily, digoxin 0.125 mg daily, Lasix 40 mg twice a day, Tradjenta 5 mg daily, Lipitor 20 mg daily, Nitrostat p.r.n. basis, nortriptyline 10 mg three times a day, Pepcid 20 mg twice a day, Pulmicort inhaled twice a day, Incruse Ellipta 2 puffs daily, Zestril 20 mg daily, and Zoloft 50 mg at bedtime. REVIEW OF SYSTEMS: No headache. No rhinitis. Has some cough and shortness of breath, had chest pain. No nausea, no vomiting or diarrhea. No leg pain or leg swelling. PHYSICAL EXAMINATION: GENERAL: Lying in the bed in no acute distress. VITAL SIGNS: Temperature is 98, heart rate is 77, respiratory rate is 20, blood pressure 127/61. HEENT: Moist mucous membrane. Crowded airway. Mallampati score is IV. NECK: Supple. No JVD. LUNGS: Scattered rhonchi. HEART: S1 and S2. ABDOMEN: Soft and nontender. No organomegaly. EXTREMITIES: No edema. NEUROLOGIC: Awake, alert, follow simple commands. LABORATORY DATA: Shows hemoglobin 10.6, hematocrit 31.7, WBC 10.6, platelets 296. INR 2.03, PTT is 52. D-dimer was 1.26. Sodium 136, potassium 3.9, chloride 101, bicarbonate 25, BUN 22, creatinine 1.0 and glucose 178. Calcium is 9.6. LDH is 381, troponin is 3.96, proBNP 4890, cholesterol 168, and TSH is 2.1. Chest x-ray shows moderate cardiomegaly and moderate vascular congestion. IMPRESSION: Non-Q-wave myocardial infarction, coronary artery disease, history of coronary stent, chronic obstructive lung disease, may have a component of sleep apnea syndrome, also has severe cardiomyopathy, cardiac arrhythmia requiring pacemaker, paroxysmal atrial fibrillation, hypertension, diabetes, hyperlipidemia, history of cerebrovascular disease, and depression. PLAN: Agreed with Dr. Lebron with the present care. The patient seen by Cardiology. We will add Singulair, continue Brovana, add Pulmicort. Sleep apnea precautions, keep head at 45 degrees if sedated, needs close cardiopulmonary monitoring while sedated. Rest of the care as per Cardiology. Thank you, and we will follow with you. Rosina Gabriel MD
[2017-04-02 06:43] LABS: HEMATOCRIT 30.9 % (36.0-48.0); MEAN CELL VOLUME 90.6 fl (80.0-105.0); MEAN CORPUSCULAR HEMOGLOBIN 30.5 pg (25.0-35.0); MEAN CORPUSCULAR HGB CONC 33.7 g/dl (31.0-37.0); MEAN PLATELET VOLUME 8.8 fl (7.0-11.0); WHITE BLOOD COUNT 8.5 10^3/ul (4.5-11.0)
[2017-04-02 07:02] LABS: INR 1.85 (0.93-1.08)
[2017-04-02 07:14] LABS: TROPONIN I 2.68 ng/mL
[2017-04-02 07:56] LABS: CALCIUM 9.1 mg/dL (8.4-10.5); POTASSIUM 3.7 mmol/L (3.6-5.0)
[2017-04-02] MEDS: Arformoterol 15 mcg/2 ml Inh Sol IH SCH ×2 (08:03→19:08)
[2017-04-02] MEDS: Albuterol-Ipratrop 3 mg / 0.5 (3 ml) UD INH SCH ×4 (08:03→19:08)
[2017-04-02] MEDS: Budesonide 0.5 mg/2 ml Inhal Susp UD IH SCH ×2 (08:05→19:08)
[2017-04-02] MEDS: Acetylcysteine 20% Inhal Soln (4ml) PO SCH ×2 (09:21→17:10)
--- NOTE | 2017-04-02 09:31 | CARD ---
APPROVED REPORT EXAM: Two-dimensional and M-mode echocardiogram with Doppler and color Doppler. 2D DIMENSIONS Left Atrium (2D)4.4 (1.6-4.0cm)IVSd1.3 (0.7-1.1cm) LVDd6.3 (3.9-5.9cm)PWd1.6 (0.7-1.1cm) LVDs5.8 (2.5-4.0cm)LVEF (%)20.0 (>50%) M-Mode DIMENSIONS Aortic Root3.10 (2.2-3.7cm)Aortic Cusp Exc.0.80 (1.5-2.0cm) Aortic Valve AoV Peak Zvprmgbe817.0cm/Lana Peak GR.9mmHg Mitral Valve MV E Etxsyudp712.0cm/sMV A Eqidxwad036.0cm/sE/A ratio0.9 TDI E/Lateral E'0.0E/Medial E'0.0 Tricuspid Valve TR Peak Wwicddjb428dw/sRAP [id number] Peak Gr.48mmHg [id number] LEFT VENTRICLE The Left Ventricle is moderately dilated. There is mild concentric left ventricular hypertrophy. The systolic function is severely impaired. There is apical and inferior akinesis and septal dyskinesis. RIGHT VENTRICLE The right ventricle is normal size. There is a pacemaker lead in the right ventricle. ATRIA The left atrium is mildly dilated. The right atrium is mildly dilated. The interatrial septum is intact with no evidence for an atrial septal defect. AORTIC VALVE The aortic valve is moderately calcified. No aortic regurgitation is present. There is no aortic valvular stenosis. MITRAL VALVE Mitral annular calcification is severe. Mitral regurgitation is severe. TRICUSPID VALVE The tricuspid valve is normal in structure. There is mild tricuspid regurgitation. PULMONIC VALVE The pulmonary valve is normal in structure. There is mild pulmonic valvular regurgitation. GREAT VESSELS The aortic root is normal in size. The IVC is normal in size and collapses >50% with inspiration. PERICARDIAL EFFUSION There is no pleural effusion. There is no pericardial effusion. <Conclusion> Dilated LA and LV. Severely reduced LV systolic function with inferior and apical akinesis as well as septal dyskinesis. Severe MR. Mild TR and PI.
[2017-04-02] MEDS: diltiaZEM 180 mg/24 Hours CD Cap PO SCH ×3 (09:35→10:10)
[2017-04-02] MEDS: Umeclidinium Bromide [Incruse Ellipta] 62.5 MCG) IH SCH (09:35)
--- NOTE | 2017-04-02 10:10 | PQF CHF ---
This form is a permanent part of the medical record Clarification of your documentation is requested to better reflect the severity of illness and intensity of treatment of your patient. Indicators present Documentation of hx chronic class III to class IV CHF, admitted chest pain, SOB, NSTEMI & CHF. Please specify type & acuity of CHF POA [x] Diagnosis of CHF and/or history of CHF [x] BNP > 200 [] Imaging Finding of Pulmonary Edema /Pleural Effusions [] Fluid/Volume Overload [] Pitting edema [x] Ejection Fraction < 40% (Indicative of Systolic Heart Failure) [] Ejection Fraction > 40% (Indicative of Diastolic Heart Failure) [x] Dyspnea / Orthopenea / Paroxysmal Nocturnal Dyspnea [] Other: Location in the medical record that reflects the above clinical findings: [x] ECHO report 04/02 Treatment Provided: [x] IV Lasix PHYSICIAN'S RESPONSE Based on your medical judgment of the clinical indicators outlined above, are you treating this patient for a known or suspected: [] Acute CHF [] Systolic [] Diastolic [] Combined [] Chronic CHF [] Systolic [] Diastolic [] Combined [] Acute on Chronic CHF []Systolic [] Diastolic [] Combined [] CHF due hypertension [] Acute systolic []Chronic systolic [] Acute/ chronic systolic [] Other, please indicate: [] [] If Unable to Determine, please check the box, sign and date. Present On Admission (POA) Indicator: [] Present at the time of admission [] Not present at the time of admission [] Clinically Undetermined In responding to this query, please exercise your independent professional judgment. The fact that a question is asked does not imply that any particular answer is desired or expected. Thank you for your clarification on this documentation. If you have any questions please call:[ ][phone] * Thank you, [ ] Sheron Marrero RN CDS card table attendant [facility]
--- NOTE | 2017-04-02 10:48 | IP.NPCORE ---
Acute ND Core Measure PNote - LVF prior to this hospilization,if known LVF prior to this hospilization: Ejection Fraction less than 40% - Ejection Fraction % Fraction %: 20 - Source Source: Echo - Date Date: 04/01/17 - Medications Aspirin Name/Dose/Frequency:: asa 81 Beta Negrita prescribed: Name/dose/frequency: coreg 12.5 COLLEEN or ARB: Name/dose/frequency: zestril 20mg Lipid Lowering Agent: Name/Dose/Frequency: lipitor LDL:: 87 Date of test:: 03/31/17
[2017-04-02] MEDS: Digoxin 125 mcg (0.125 mg) Tab PO SCH (13:27)
--- NOTE | 2017-04-02 15:13 | PN ---
DATE: 04/02/2017 SUBJECTIVE: The patient is seen lying in bed in telemetry. She has had no further chest pain. Her dyspnea has improved as well. She feels somewhat anxious to the unpredictable nature of her presenting symptoms. CURRENT MEDICATIONS: Include hydralazine 25 mg q. 6 hours, Brovana, Bumex 0.5 mg daily, Diltiazem 180 mg daily, Claritin 10 mg daily, carvedilol 12.5 mg b.i.d., Coumadin currently on hold, DuoNeb inhaler, Ecotrin 81 mg daily, Effient 10 mg daily, Glucotrol 10 mg daily, Digoxin 0.125 mg daily, Lasix 40 mg IV b.i.d., Tradjenta, Lipitor 20 mg daily, Pamelor 10 mg t.i.d., Pepcid 20 mg b.i.d., Pulmicort inhaler, Singulair, Zestril 20 mg daily, and Zoloft 50 mg daily. OBJECTIVE: GENERAL: She is a middle-aged woman who appears somewhat anxious. VITAL SIGNS: Her blood pressure is 108/46, with a pulse of 70, and paced respiration of 16. She is afebrile. HEENT: No JVD. CHEST: Bilateral scattered rhonchi. HEART: PMI displaced laterally with soft tones noted. ABDOMEN: Soft and nontender with normoactive bowel sounds. EXTREMITIES: No edema. DIAGNOSTIC DATA: Repeat troponin is 2.68, potassium 3.7, BUN and creatinine 30 and 1.3. White count 8.5, hemoglobin and hematocrit 10.4 and 30.9, with a platelet count of 275,000. Echocardiogram reveals left atrium and left ventricular enlargement with severe LV systolic dysfunction. There is evidence of inferior and apical akinesis with scapular dyskinesis. Severe mitral regurgitation is present as well as mild tricuspid and pulmonic insufficiency. IMPRESSION: 1. Decompensated congestive heart failure, acute on chronic predominantly systolic. 2. Coronary artery disease status post bypass surgery and multivessel percutaneous coronary intervention. 3. Ventricular tachycardia status post implantable cardioverter-defibrillator implant. 4. Recurrent chest pain with troponin elevation suspicious for non-ST segment elevation myocardial infarction. Catheterization in August had revealed severe triple vessel coronary artery disease with occluded bypass grafts and percutaneous coronary intervention of very complicated right coronary artery was performed at that time. RECOMMENDATIONS: At this time, given her known anatomy and intensification of medical therapy appears preferred initial option. If she has intractable angina may be catheterization can be planned. In the interim, beta joshua therapy can be increased and her long acting nitrates can be added to her regimen as well. In order to allow for this, her hydralazine dose can be reduced to avoid excessive hypotension. She should be out of bed and ambulated as tolerated. Continue diuresis as advised as well. We will continue to follow and make further recommendations as appropriate. Dwight Patiño MD
--- NOTE | 2017-04-02 16:29 | PN ---
DATE: 04/02/2017 PULMONARY PROGRESS NOTE REFERRING PHYSICIAN: Dr. Lebron. SUBJECTIVE: The patient is sitting up in a bed. Night was unremarkable. Still have a cough, sputum production, has a near syncopal episode this morning when got off from the bed. No nausea. No vomiting, diarrhea. No leg pain or leg swelling. OBJECTIVE: GENERAL: In no acute distress. VITAL SIGNS: Temperature is 98, heart rate 68, respiratory rate 20, blood pressure 108/49, and pulse ox 94% on 2 L nasal cannula. HEENT: Moist mucous membranes. Crowded airway. NECK: Supple. No JVD. LUNGS: Has a scattered rhonchi. HEART: S1 and S2. ABDOMEN: Soft, nontender. No organomegaly. EXTREMITIES: There is no edema. NEUROLOGIC: Awake, alert, follows simple commands. MEDICATIONS: She is on Mucomyst 20% inhaled twice a day, hydralazine 10 mg q. 6 hours, Brovana 15 mcg inhaled twice a day, Bumex 0.5 mg daily, Cardizem CD 180 mg daily, Claritin 10 mg daily, Coreg 25 mg twice a day, Coumadin 4 mg which is on hold, DuoNeb q. 6 hours, Ecotrin 81 mg daily, Effient 10 mg daily, glipizide 10 mg daily, Imdur 60 mg daily, digoxin 0.125 mg daily, Lasix 40 mg twice a day, Tradjenta 5 mg daily, Lipitor 20 mg daily, Nitrostat p.r.n. basis, nortriptyline 10 mg three times a day, Pepcid 20 mg twice a day, Pulmicort inhaled twice a day, Singulair 10 mg at bedtime, Incruse Ellipta 62.5 one puff daily, Zestril 20 mg daily, and Zoloft 50 mg at bedtime. LABORATORY DATA: Shows hemoglobin 10.4, hematocrit 30.9, WBC 8.5, platelets 275. INR 1.85. Sodium 136, potassium 3.7, chloride 99, bicarbonate 27, BUN 30, creatinine 1.3, and glucose 142. Calcium is 9.1. Troponin 2.68. IMPRESSION AND PLAN: Status post myocardial infarction, coronary artery disease, history of coronary stent, history of bypass surgery, chronic obstructive lung disease, may have a sleep apnea syndrome, cardiomyopathy, cardiac arrhythmia requiring pacemaker, paroxysmal atrial fibrillation, hypertension, diabetes, hyperlipidemia, history of cerebrovascular disease, and depression, may have a component of orthostatic hypotension. Spoke about it. The patient expressed understanding. We will add Solu-Medrol 20 mg q. 12 hours. Continue bronchodilator. Cardiology followup. Coumadin was placed on hold. Anticipation cardiac workup. Thank you and we will follow with you. Rosina Gabriel MD
[2017-04-02] MEDS: MethylPREDNISolone 40 mg Vial IVP SCH (22:23)
--- NOTE | 2017-04-03 03:12 | PN ---
SUBJECTIVE: The patient is a 72-year-old female. The patient is seen and examined on the bedside, looking comfortable. Yesterday, she had episode of chest pain. Night was unremarkable. Still coughing and sputum production. Near syncopal episode yesterday. No fever, no chills. No hematuria, no hematochezia. PHYSICAL EXAMINATION: VITAL SIGNS: Temperature 98, heart rate 60, respiratory rate 20, blood pressure 108/49, and pulse oximetry 94% on 2 liters nasal cannula. HEENT: Head, normocephalic, atraumatic. Eyes: PERRLA. Extraocular muscles intact. Conjunctiva clear. Nose patent. Mucous membranes are moist. NECK: Supple. No carotid bruits, JVD, or thyromegaly. CHEST: Bilaterally symmetrical. HEART: S1 and S2 positive. LUNGS: Clear to auscultation. ABDOMEN: Soft. Bowel sounds positive. No organomegaly. EXTREMITIES: No edema. No cyanosis. NEUROLOGIC: The patient is awake, alert. Follows simple commands. MEDICATIONS: Mucomyst, hydralazine, Brovana, Bumex, Cardizem, Claritin, Coreg, Coumadin, DuoNeb, Ecotrin, Effient, glipizide, Imdur, digoxin, Lasix, Tradjenta, Lipitor, Nitrostat, nortriptyline, Pepcid, Pulmicort, Singulair, Ellipta, Zestril, Zoloft. LABORATORY DATA: Hemoglobin 10.5, hematocrit 30.9, white blood cells 8.5 and platelets 75. Sodium 136, potassium 3.7, BUN 30, creatinine 1.3 and glucose 142. Troponin 2.68. ASSESSMENT AND PLAN: The patient is status post myocardial infarction, history of coronary artery disease, history of bypass surgery, chronic obstructive lung disease, sleep apnea syndrome, cardiomyopathy, cardiac arrhythmias requiring pacemaker, paroxysmal atrial fibrillation, hypertension, diabetes mellitus, hypercholesterolemia, history of cerebrovascular disease, depression, orthostatic hypotension. 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 Dr. Gabriel added Solu-Medrol. Continue bronchodilators. Reviewed Dr. Dwight Patiño's notes. Ventricular tachycardia, status post implantable cardioverter defibrillator, decompensated congestive heart failure, acute on chronic predominantly systolic, recurrent chest pain with troponin elevated, suspicious of non-ST segment myocardial infarction. Catheterization in August revealed severe triple-vessel coronary artery disease with occluded bypass grafts and percutaneous coronary intervention of very complicated right coronary artery was performed at that time. At this time, given her known anatomy and intensification of medical therapy, appeared to perform initial option if she has intractable angina, mainly catheterization can be planned. In the interim, beta-joshua therapy can be increase and her long-acting nitrates can be added to her regimen as well. In order for this, her hydralazine dose can be reduced to avoid excessive hypotension. She should be out of bed and ambulate as tolerated. We will do physical therapy. Continue diuretics advised as well. We will continue to follow up. Discussion done with Dr. Dwight Patiño in length of time. Reviewed Dr. Gabriel's notes and discussion done with the patient according to Dr. Patiño's discussion. Tanisha Lebron MD
[2017-04-03 07:46] LABS: CALCIUM 9.4 mg/dL (8.4-10.5); POTASSIUM 4.9 mmol/L (3.6-5.0)
[2017-04-03 08:06] LABS: INR 2.38 (0.93-1.08)
[2017-04-03] MEDS: Albuterol-Ipratrop 3 mg / 0.5 (3 ml) UD INH SCH ×4 (08:07→19:21)
[2017-04-03] MEDS: Arformoterol 15 mcg/2 ml Inh Sol IH SCH ×2 (08:07→19:21)
[2017-04-03] MEDS: Budesonide 0.5 mg/2 ml Inhal Susp UD IH SCH ×2 (08:08→19:21)
[2017-04-03] MEDS ORDERED: Phytonadione 10 mg/ml Inj (Adult) SC STA (09:07)
--- NOTE | 2017-04-03 09:17 | CP.PCM.PN ---
Subjective - Date & Time of Evaluation Date of Evaluation: 04/03/17 Time of Evaluation: 07:00 - Subjective Subjective: Stable on 2R. CP/SOB last night and this AM. Responded the SL NTG V/S noted. V. Paced PE: Lungs: clear Cor.: S1S2 Abd.: soft Ext.: no edema Neuro.: alert I/O not recorded Labs noted: INR= 2.38, Cr.= 1.3 Echo noted. Severe LVD, Severe MR, Mild TR and PI. Objective - Vital Signs/Intake and Output Vital Signs (last 24 hours): Temp Pulse Resp BP Pulse Ox 97.7 F 73 20 112/59 L 94 L 04/03/17 06:00 04/03/17 06:19 04/03/17 06:00 04/03/17 06:19 04/02/17 06:00 Intake and Output: 04/03/17 04/03/17 06:59 18:59 Intake Total 420 Balance 420 - Medications Medications: Current Medications Acetylcysteine (Acetylcysteine 20%) 3 ml PO BID [facility] Last Admin: 04/02/17 17:10 Dose: 3 ml Albuterol/Ipratropium (Duoneb 3 Mg/0.5 Mg (3 Ml) Ud) 3 ml INH QIDRESP [facility] Last Admin: 04/03/17 08:07 Dose: 3 ml Arformoterol Tartrate (Brovana) 15 mcg IH [id number] [facility] Last Admin: 04/03/17 08:07 Dose: 15 mcg Aspirin (Ecotrin) 81 mg PO 1400 [facility] Atorvastatin Calcium (Lipitor) 20 mg PO DIN [facility] Last Admin: 04/02/17 17:09 Dose: 20 mg Budesonide (Pulmicort Respules) 0.5 mg IH [id number] [facility] Last Admin: 04/03/17 08:08 Dose: 0.5 mg Bumetanide (Bumex) 0.5 mg PO 1400 [facility] Carvedilol (Coreg) 25 mg PO BID [facility] Last Admin: 04/02/17 17:10 Dose: Not Given Digoxin (Lanoxin) 0.125 mg PO 1400 [facility] Last Admin: 04/02/17 13:27 Dose: 0.125 mg Diltiazem HCl (Cardizem Cd) 180 mg PO 1400 [facility] Doxycycline Hyclate (Doryx) 100 mg PO Q12 [facility] PRN Reason: Protocol Last Admin: 04/02/17 22:22 Dose: 100 mg Famotidine (Pepcid) 20 mg PO 1000,2200 [facility] Last Admin: 04/02/17 22:22 Dose: 20 mg Furosemide (Lasix) 40 mg IVP BID [facility] Last Admin: 04/02/17 17:09 Dose: 40 mg Glipizide (Glucotrol) 10 mg PO DAILY [facility] Last Admin: 04/02/17 09:38 Dose: 10 mg Hydralazine HCl (Apresoline) 10 mg PO Q6 [facility] Last Admin: 04/03/17 06:19 Dose: 10 mg Insulin Human Regular (Humulin R Med) 0 units SC ACHS [facility] PRN Reason: Protocol Isosorbide Mononitrate (Imdur) 60 mg PO DAILY [facility] Last Admin: 04/02/17 13:27 Dose: Not Given Lisinopril (Zestril) 20 mg PO DAILY [facility] Last Admin: 04/02/17 09:20 Dose: 20 mg Loratadine (Claritin) 10 mg PO 1400 [facility] Methylprednisolone (Solu-Medrol) 20 mg IVP Q12 [facility] Last Admin: 04/02/17 22:23 Dose: 20 mg Montelukast Sodium (Singulair) 10 mg PO HS [facility] Last Admin: 04/02/17 22:22 Dose: 10 mg Nitroglycerin (Nitrostat Sl Tab) 0.4 mg SL PRN PRN PRN Reason: CHEST PAIN Last Admin: 04/03/17 07:28 Dose: 0.4 mg Linagliptin [ (Tradjenta] 5 Mg) 5 mg PO DAILY [facility] Last Admin: 04/02/17 09:35 Dose: Not Given Umeclidinium [place] [Incruse Ellipta] 62.5 Mcg) 62.5 mcg IH DAILY [facility] Last Admin: 04/02/17 09:35 Dose: Not Given Nortriptyline HCl (Pamelor) 10 mg PO TID [facility] Last Admin: 04/02/17 19:05 Dose: 10 mg Prasugrel (Effient) 10 mg PO 1400 [facility] Sertraline HCl (Zoloft) 50 mg PO HS [facility] Last Admin: 04/02/17 22:21 Dose: 50 mg Warfarin Sodium (Coumadin) 4 mg PO 1800 [facility] Last Admin: 04/02/17 19:05 Dose: 4 mg - Labs Labs: 10/18/17 06:00 04/03/17 05:30 PT 26.7 SECONDS (9.4-12.5) H 04/03/17 07:35 INR 2.38 (0.93-1.08) H 04/03/17 07:35 APTT 52.1 Seconds (23.7-30.8) H 04/01/17 04:20 Assessment and Plan - Assessment and Plan (Free Text) Assessment: Chest Pain and SOB episodes NSTEMI CHF Severe CAD/CABG/PCI with severe LVD and severe MR NSVT ICD PAF HBP Diabetes HLD COPD CVD Colon Resectio/iliostomy Chronic Pain Depression Insomnia Plan: Plan cardiac cath for tomorrow Vit K today x 2 doses and recheck INr at 4 PM Add nitrolpaste 1/2 inch Q 4 hrs. Increase Imdur to 60 BID. Bed to chair as lou. Monitor I/O, labs, INR, trops, etc. NPO after MN for cath tomorrow. Hold diabetes meds for cath. Additional recs to follow.
[2017-04-03] MEDS: MethylPREDNISolone 40 mg Vial IVP SCH ×2 (10:12→21:40)
[2017-04-03] MEDS: Umeclidinium Bromide [Incruse Ellipta] 62.5 MCG) IH SCH (10:13)
[2017-04-03] MEDS: Acetylcysteine 20% Inhal Soln (4ml) PO SCH ×2 (10:35→17:26)
[2017-04-03] MEDS: Nitroglycerin 2% Ointment Foilpak UD TOP SCH ×4 (10:37→21:40)
[2017-04-03] MEDS: Insulin Reg-MEDIUM-Coverage SC SCH ×3 (12:00→21:39)
[2017-04-03] MEDS ORDERED: Phytonadione 10 mg/ml Inj (Adult) SC ONE ×2 (14:00→20:58)
[2017-04-03] MEDS: Digoxin 125 mcg (0.125 mg) Tab PO SCH (16:02)
[2017-04-03] MEDS: diltiaZEM 180 mg/24 Hours CD Cap PO SCH (16:03)
[2017-04-03 18:40] LABS: INR 2.36 (0.93-1.08)
[2017-04-04] MEDS: Nitroglycerin 2% Ointment Foilpak UD TOP SCH ×4 (01:01→13:15)
--- NOTE | 2017-04-04 01:41 | PN ---
DATE: SUBJECTIVE: The patient is a 72-year-old female. The patient was seen and examined at the bedside. Last night was complaining of chest pain and shortness of breath, responded to sublingual nitroglycerin, but then I did interview that the patient was comfortable. No nausea, vomiting, or diarrhea. No headache. No dizziness. No chest pain. No palpitations. PHYSICAL EXAMINATION: VITAL SIGNS: Temperature 97.7, pulse 73, respiratory rate 20, blood pressure 112/59, and pulse oximetry 94. HEENT: Head is normocephalic and atraumatic. Eyes; PERRLA. Extraocular muscles intact. Conjunctivae clear. Nose patent. Mucous membranes moist. NECK: Supple. No carotid bruits, JVD, or thyromegaly. CHEST: Bilaterally symmetrical. HEART: S1 and S2 positive. LUNGS: Clear to auscultation. ABDOMEN: Soft. Bowel sounds present. No organomegaly. EXTREMITIES: No edema. No cyanosis. NEUROLOGIC: The patient is awake, alert, and follows simple commands. MEDICATIONS: Acetylcysteine, DuoNeb, Brovana, Lipitor, Pulmicort, Bumex, digoxin, Cardizem, doxycycline, Pepcid, Lasix, Glucotrol, hydralazine, Imdur, lisinopril, Claritin, Singulair, Nitrostat, insulin, Effient, Zoloft, and Coumadin. LABORATORY DATA: White blood cell 8.5, hemoglobin 10.4, hematocrit 30.9, and platelets 275. Sodium 134, potassium 4.9, BUN 39, creatinine 1.3, and glucose 307. ASSESSMENT: Ms. Mallorie Francis is a 72-year-old lady with anemia, renal insufficiency, hyperglycemia, came with chest pain and shortness of breath, has non-ST elevation myocardial infarction, congestive heart failure, history of coronary artery disease/coronary artery bypass graft mitral regurgitation, nonsustained ventricular tachycardia, implantable cardioverter-defibrillator, hypertension, diabetes mellitus, hypercholesterolemia, chronic obstructive pulmonary disease, colon resection/ileostomy, chronic renal syndrome, depression, and insomnia. PLAN: The patient will go for cardiac catheterization tomorrow. Yesterday has discussion done with Dr. Patiño and Cardiology gave 2 doses of vitamin K and recheck INR at 4:00 p.m. Add nitroglycerin paste half-inch q.4 hours and increase Imdur to 60 b.i.d. Bed to chair, rest. Monitor ins and outs, n.p.o. after midnight for cardiac catheterization, and hold medication for catheterization. Review Dr. Kemp's note. Discussion done with the patient. Review Dr. Gabriel's notes also. Repeat labs. We will followup. Tanisha Lebron MD MTDD
--- NOTE | 2017-04-04 02:02 | PN ---
DATE: 04/03/2017 REFERRING PHYSICIAN: Dr. Lebron. SUBJECTIVE: She is lying in the bed, head at 45 degrees, had episode of chest pain this morning, presently no chest pain. Still has cough, shortness of breath and sputum production. No nausea, no vomiting, no diarrhea. No leg pain or leg swelling. OBJECTIVE: GENERAL: In no acute distress. VITAL SIGNS: Temperature 98, heart rate 73, respiratory rate is 18, blood pressure is 123/60 and pulse ox 94% on room air. HEENT: Moist mucous membrane. No ulcer or thrush noted. NECK: Supple. No JVD. LUNGS: Scattered rhonchi and some wheezing. HEART: S1 and S2. ABDOMEN: Soft and nontender. No organomegaly. EXTREMITIES: There is no edema. NEUROLOGIC: Awake, alert, follows simple commands. LABORATORY DATA: Reviewed, noted. Sodium 134, potassium 4.9, chloride 97, bicarbonate 25, BUN 39, creatinine 1.3, and glucose 307. Calcium is 9.4. Troponin slowly improving since admission. MEDICATIONS: She is on Mucomyst 20% inhaled twice a day, hydralazine 10 mg q.12 hours, Brovana inhaled twice a day, Bumex 0.5 mg daily, Cardizem CD 180 mg daily, Claritin 10 mg daily, Coreg 25 mg twice a day, Coumadin 4 mg, doxycycline 100 mg twice a day, DuoNeb q.i.d., Ecotrin 81 mg daily, Effient 10 mg daily, glipizide 10 mg daily, insulin coverage, Imdur 60 mg twice a day, digoxin 0.125 mg daily, Lasix 40 mg IV twice a day, Tradjenta 5 mg daily, Lipitor 20 mg daily, Nitro-Bid 20% to affected area, nortriptyline 10 mg three times a day, Pepcid 20 mg twice a day, Pulmicort inhaled twice a day, Singulair 10 mg at bedtime, Solu-Medrol 20 mg twice a day, Incruse Ellipta two puffs daily, Zestril 20 mg daily, and Zoloft 50 mg daily. IMPRESSION AND PLAN: Status post myocardial infarction, coronary artery disease, history of coronary stent, history of bypass surgery, chronic obstructive lung disease, may have sleep apnea syndrome, cardiomyopathy, cardiac arrhythmia requiring pacemaker, paroxysmal atrial fibrillation, hypertension, diabetes, hyperlipidemia, history of cerebrovascular disease, and depression. Pulmonary point of view, is doing okay. Continue IV and inhaled bronchodilators. Continue diuretics, gastric prophylaxis, SCDs to lower extremities. Thank you and we will follow with you. Rosina Gabriel MD
[2017-04-04 06:13] LABS: INR 1.45 (0.93-1.08)
[2017-04-04 06:19] LABS: POTASSIUM 4.3 mmol/L (3.6-5.0)
[2017-04-04] MEDS: Albuterol-Ipratrop 3 mg / 0.5 (3 ml) UD INH SCH ×4 (07:40→20:05)
[2017-04-04] MEDS: Arformoterol 15 mcg/2 ml Inh Sol IH SCH ×2 (07:40→20:05)
[2017-04-04] MEDS: Budesonide 0.5 mg/2 ml Inhal Susp UD IH SCH ×2 (07:40→20:05)
--- NOTE | 2017-04-04 08:13 | CP.PCM.PN ---
Subjective - Date & Time of Evaluation Date of Evaluation: 04/04/17 Time of Evaluation: 07:00 - Subjective Subjective: Stable on 2R. Abdominal discomfort last night but no CP or SOB. Three doses Vit K given yesterday. V/S noted. V. Paced PE: Lungs: clear Cor.: S1S2 Abd.: soft Ext.: no edema Neuro.: alert I/O = 780/603 Labs noted: INR= 1.45, Cr.= 1.3, K+= 4.3. Trop 04/03= 1.31 Echo noted. Severe LVD, Severe MR, Mild TR and PI. Objective - Vital Signs/Intake and Output Vital Signs (last 24 hours): Temp Pulse Resp BP Pulse Ox 97.6 F 76 20 113/56 L 96 04/04/17 06:00 04/04/17 08:02 04/04/17 06:00 04/04/17 06:00 04/04/17 06:00 Intake and Output: 04/04/17 04/04/17 06:59 18:59 Intake Total 540 Output Total 3 Balance 537 - Medications Medications: Current Medications Acetylcysteine (Acetylcysteine 20%) 3 ml PO BID [facility] Last Admin: 04/03/17 17:26 Dose: 3 ml Albuterol/Ipratropium (Duoneb 3 Mg/0.5 Mg (3 Ml) Ud) 3 ml INH QIDRESP [facility] Last Admin: 04/04/17 07:40 Dose: 3 ml Arformoterol Tartrate (Brovana) 15 mcg IH [id number] [facility] Last Admin: 04/04/17 07:40 Dose: 15 mcg Aspirin (Ecotrin) 81 mg PO 1400 [facility] Last Admin: 04/03/17 16:04 Dose: 81 mg Atorvastatin Calcium (Lipitor) 20 mg PO DIN [facility] Last Admin: 04/03/17 17:25 Dose: 20 mg Budesonide (Pulmicort Respules) 0.5 mg IH [id number] [facility] Last Admin: 04/04/17 07:40 Dose: 0.5 mg Bumetanide (Bumex) 0.5 mg PO 1400 [facility] Last Admin: 04/03/17 16:03 Dose: 0.5 mg Carvedilol (Coreg) 25 mg PO BID [facility] Last Admin: 04/03/17 17:28 Dose: 25 mg Digoxin (Lanoxin) 0.125 mg PO 1400 [facility] Last Admin: 04/03/17 16:02 Dose: 0.125 mg Diltiazem HCl (Cardizem Cd) 180 mg PO 1400 [facility] Last Admin: 04/03/17 16:03 Dose: 180 mg Doxycycline Hyclate (Doryx) 100 mg PO Q12 [facility] PRN Reason: Protocol Last Admin: 04/03/17 21:39 Dose: 100 mg Famotidine (Pepcid) 20 mg PO 1000,2200 [facility] Last Admin: 04/03/17 21:40 Dose: 20 mg Furosemide (Lasix) 40 mg IVP BID [facility] Last Admin: 04/03/17 17:27 Dose: 40 mg Glipizide (Glucotrol) 10 mg PO DAILY [facility] Last Admin: 04/03/17 10:11 Dose: 10 mg Hydralazine HCl (Apresoline) 10 mg PO Q12H [facility] Last Admin: 04/03/17 21:38 Dose: 10 mg Insulin Human Regular (Humulin R Med) 0 units SC [facility] PRN Reason: Protocol Last Admin: 04/03/17 21:39 Dose: Not Given Isosorbide Mononitrate (Imdur) 60 mg PO BID [facility] Last Admin: 04/03/17 17:25 Dose: 60 mg Lisinopril (Zestril) 20 mg PO DAILY [facility] Last Admin: 04/03/17 10:10 Dose: 20 mg Loratadine (Claritin) 10 mg PO 1400 [facility] Last Admin: 04/03/17 16:04 Dose: 10 mg Methylprednisolone (Solu-Medrol) 20 mg IVP Q12 [facility] Last Admin: 04/03/17 21:40 Dose: 20 mg Montelukast Sodium (Singulair) 10 mg PO HS [facility] Last Admin: 04/03/17 21:40 Dose: 10 mg Nitroglycerin (Nitrostat Sl Tab) 0.4 mg SL PRN PRN PRN Reason: CHEST PAIN Last Admin: 04/03/17 07:28 Dose: 0.4 mg Nitroglycerin (Nitro-Bid 2% Oint) 1 ea TOP Q4H [facility] Last Admin: 04/04/17 05:29 Dose: 1 ea Linagliptin [ (Tradjenta] 5 Mg) 5 mg PO DAILY [facility] Last Admin: 04/03/17 10:20 Dose: Not Given Umeclidinium Baxter [Incruse Ellipta] 62.5 Mcg) 62.5 mcg IH DAILY [facility] Last Admin: 04/03/17 10:13 Dose: Not Given Nortriptyline HCl (Pamelor) 10 mg PO TID [facility] Last Admin: 04/03/17 17:28 Dose: 10 mg Prasugrel (Effient) 10 mg PO 1400 [facility] Last Admin: 04/03/17 16:03 Dose: 10 mg Sertraline HCl (Zoloft) 50 mg PO HS [facility] Last Admin: 04/03/17 21:41 Dose: 50 mg Warfarin Sodium (Coumadin) 4 mg PO 1800 [facility] Last Admin: 04/02/17 19:05 Dose: 4 mg - Labs Labs: 04/02/17 06:00 04/04/17 05:30 PT 16.1 SECONDS (9.4-12.5) H 04/04/17 05:30 INR 1.45 (0.93-1.08) H 04/04/17 05:30 APTT 52.1 Seconds (23.7-30.8) H 04/01/17 04:20 Assessment and Plan - Assessment and Plan (Free Text) Assessment: Chest Pain and SOB episodes NSTEMI CHF Severe CAD/CABG/PCI with severe LVD and severe MR NSVT ICD PAF HBP Diabetes HLD COPD CVD Colon Resectio/iliostomy Chronic Pain Depression Insomnia Plan: Plan cardiac cath ~ 4 PM Continue nitrolpaste 1/2 inch Q 4 hrs and Imdur 60 BID. Bed to chair as lou. Monitor I/O, labs, INR, trops, etc. Additional recs to follow cath.
[2017-04-04] MEDS: Umeclidinium Bromide [Incruse Ellipta] 62.5 MCG) IH SCH (10:15)
[2017-04-04] MEDS: Acetylcysteine 20% Inhal Soln (4ml) PO SCH ×2 (10:26→19:03)
[2017-04-04] MEDS: MethylPREDNISolone 40 mg Vial IVP SCH ×2 (10:29→21:56)
[2017-04-04] MEDS: diltiaZEM 180 mg/24 Hours CD Cap PO SCH (13:13)
[2017-04-04] MEDS: Digoxin 125 mcg (0.125 mg) Tab PO SCH (13:14)
[2017-04-04] MEDS ORDERED: Lidocaine 2% Inj (20ml) ONE (15:03)
[2017-04-04] MEDS ORDERED: Midazolam 2 MG/2 ML VIAL ONE ×2 (15:04→17:13)
[2017-04-04] MEDS ORDERED: Iodixanol 320 MG/ML 200 ML BOTTLE IV ONE (15:04)
[2017-04-04] MEDS ORDERED: Iodixanol 320 MG/ML 100 ML BOTTLE IV ONE (16:55)
[2017-04-04] MEDS ORDERED: Sodium Chloride 0.9% 1,000 ML IV SCH (17:30)
--- NOTE | 2017-04-04 22:43 | PN ---
DATE: 04/04/2017 PULMONARY PROGRESS NOTE REFERRING PHYSICIAN: Dr. Lebron. SUBJECTIVE: She is lying in the bed. No acute distress. No headache and no rhinitis. No new chest pain. No nausea. No vomiting. No diarrhea. No leg pain or leg swelling. He does have a cough and some clear sputum. PHYSICAL EXAMINATION: GENERAL: In no acute distress. VITAL SIGNS: Temperature 98, heart rate is 66, respiratory rate is 18, blood pressure 117/47, pulse ox 97% on room air. HEENT: Moist mucous membrane. Crowded airway. Mallampati score is 4. NECK: Supple. No JVD. LUNGS: Scattered rhonchi. HEART: S1 and S2. ABDOMEN: Soft and nontender. No organomegaly. EXTREMITIES: There is no edema. NEUROLOGIC: Awake and alert. Follow simple command. MEDICATIONS: She is on Mucomyst 20% 3 mL inhaled twice a day, hydralazine 10 mg q.12h., Brovana inhaled twice a day, Bumex 0.5 mg daily, Cardizem CD 180 mg daily, Claritin 10 mg daily, Coreg 25 mg twice a day, Coumadin 4 mg will be given, doxycycline 100 mg twice a day, DuoNeb q.i.d., aspirin 81 mg daily, Efficient 10 mg daily, Glucotrol 10 mg daily, insulin coverage Imdur 60 mg twice a day, digoxin 0.125 mg daily, Lasix 40 mg twice a day, Tradjenta 5 mg daily, Lipitor 20 mg daily, Nitrostat p.r.n. basis, nortriptyline 10 mg three times a day, Pepcid 20 mg twice a day, Pulmicort inhaled twice a day, Singulair 10 mg bedtime, IV fluid normal saline 40 mL per hour, Solu-Medrol 20 mg q.12h., Incruse Ellipta one puff daily, Zestril 20 mg daily, and Zoloft p.r.n. basis. LABORATORY DATA: Laboratory data shows INR 1.45, sodium 134, potassium 4.3, chloride 93, bicarbonate 29, BUN 47, creatinine 1.3, glucose 323, and calcium is 10.0. IMPRESSION AND PLAN: Coronary artery disease, myocardial infarction, history of coronary stent, history of bypass surgery, chronic obstructive lung disease, sleep apnea syndrome, cardiomyopathy, cardiac arrhythmia requiring pacemaker, paroxysmal atrial fibrillation, hypertension, diabetes, hyperlipidemia, history of cerebrovascular accident in the past, and depression. For cardiac catheterization and possible stent today. Continue p.r.n. inhale bronchodilator. Keep head 45 degree. Anticoagulation. Sleep apnea precaution if sedated. Thank you and we will follow with you. Rosina Gabriel MD
--- NOTE | 2017-04-05 02:32 | CARDCATH ---
PROCEDURE DATE: 04/04/2017 PROCEDURES: 1. Selective left and right coronary angiography. 2. Left ventriculography. 3. PCI of mid RCA with drug-eluting stents. 4. Right femoral arteriography. 5. Mynx deployment. HISTORY: This is a 72-year-old woman with known coronary artery disease, status post prior bypass surgery and prior multivessel PCI, admitted with acute coronary syndrome. Cardiac catheterization was advised. INDICATIONS: As above. FINDINGS: HEMODYNAMICS: The aortic pressure was 120/70 with left ventricular pressure of 120/20. CORONARY ANATOMY: 1. The left mainstem was moderately calcified and had 30% distal stenosis. 2. The left anterior descending artery was also calcified with evidence of patent stents in the proximal and mid portion of the vessel. In the early mid segment of the vessel, there is a calcified area with evidence of 40% to 50% stenosis. The distal vessel had [id number] diffuse irregularities and diagonal branches also had mild disease. 3. Left circumflex artery gave rise to two moderate size obtuse marginal branches. There is evidence of mild disease as well. 4. The right coronary artery was dominant. Previously placed stents were noted in the ostial proximal mid and distal segments of the vessel. The ostial segment had a 60% in-stent restenosis. The stent from the early mid segment of the vessel had a 70% in-stent restenosis. In the mid segment of the vessel, there was evidence of two sequential 80% lesions between the stented segments. Distal stents had mild in-stent restenosis. LEFT VENTRICULOGRAPHY: A hand injection was performed in the left ventricle revealing moderately severe LV systolic dysfunction with global hypokinesis with an ejection fraction of 25%. CORONARY INTERVENTION: Given the above findings, attempted PCI of the RCA lesions were then performed. Intravenous heparin, 4000 units was administered and the ACT was greater than 240 seconds during the procedure. A right Amplatz guide catheter was utilized to engage the vessel and lesions were successfully closed with use of a Beatrice wire. Initial inflations were performed in the mid proximal and ostial segments of the vessel with the use of a 3.0 x 12 mm noncompliant balloon. This was exchanged for a 3.5 x 12 mm noncompliant balloon and multiple inflations were performed with the same territories up to 14 atmospheres for 30-60 seconds each. Following this, the stented segments in the mid portion still had residual disease and we treated it with a placement of a 3.5 x 18 mm Resolute drug-eluting stent. This was inflated to 14 atmosphere for 45 seconds. There remained a small segment just before that, which still significant disease and this was treated with placement of 3.5 x 9 mm Resolute drug-eluting stent with overlap of the two stents. This was inflated to 14 atmosphere for 45 seconds. The balloon catheter was then advanced and inflation performed at the overlapped segment up to 30 seconds for 16 atmospheres. The same balloon was withdrawn and used to post dilate the ostial segment again to 20 atmospheres. There remained a 30% ostial stenosis; however, the rest of the vessel appeared to be relatively free of significant stenosis. MEGHAN grade 3 flow was present before and after the intervention. RIGHT FEMORAL ARTERIOGRAPHY: A right femoral arteriogram was performed in the BREWER projection. This revealed moderate diffuse common femoral and SFA disease. The puncture site was then closed with deployment of a Mynx device. CONCLUSIONS: 1. Severe right coronary artery disease including multiple in-stent restenosis as well as worsened focal mcgrath vessel disease. 2. Moderate left main disease. 3. Moderate left anterior descending disease. 4. Moderately severe left ventricular dysfunction. 5. Successful percutaneous coronary intervention of mid proximal ostial right coronary artery as described above. RECOMMENDATIONS: Given the above findings, aspirin and Effient will be continued for at least 3 months. She will resume her Coumadin therapy as well. Aspirin will be discontinued at that time. Continue risk factors control was advised. Dwight Patiño MD cc: Tanisha Lebron MD
[2017-04-05] MEDS: Albuterol-Ipratrop 3 mg / 0.5 (3 ml) UD INH SCH ×4 (07:31→19:29)
[2017-04-05] MEDS: Budesonide 0.5 mg/2 ml Inhal Susp UD IH SCH ×2 (07:31→19:29)
[2017-04-05] MEDS: Arformoterol 15 mcg/2 ml Inh Sol IH SCH ×2 (07:31→19:30)
[2017-04-05 07:40] LABS: GRAN # 9.76 (1.4-6.5); GRAN % 85.4 % (50.0-68.0); HEMATOCRIT 32.2 % (36.0-48.0); LYMPH # 0.6 (1.2-3.4); LYMPH % 5.1 % (22.0-35.0); MEAN CORPUSCULAR HEMOGLOBIN 30.2 pg (25.0-35.0); MEAN CORPUSCULAR HGB CONC 33.2 g/dl (31.0-37.0); MEAN PLATELET VOLUME 8.7 fl (7.0-11.0); MONO # 1.1 (0.1-0.6); MONO % 9.5 % (1.0-6.0); RED CELL DISTRIBUTION WIDTH 15.6 % (11.5-14.5); WHITE BLOOD COUNT 11.4 10^3/ul (4.5-11.0)
[2017-04-05 07:54] LABS: INR 1.17 (0.93-1.08)
[2017-04-05 07:58] LABS: CALCIUM 9.9 mg/dL (8.4-10.5); POTASSIUM 4.7 mmol/L (3.6-5.0)
[2017-04-05] MEDS: MethylPREDNISolone 40 mg Vial IVP SCH ×2 (10:05→21:38)
[2017-04-05] MEDS: Acetylcysteine 20% Inhal Soln (4ml) PO SCH ×2 (10:06→17:11)
[2017-04-05] MEDS: Umeclidinium Bromide [Incruse Ellipta] 62.5 MCG) IH SCH (10:07)
[2017-04-05] MEDS: Insulin Reg-MEDIUM-Coverage SC SCH ×3 (12:15→21:25)
[2017-04-05] MEDS: diltiaZEM 180 mg/24 Hours CD Cap PO SCH (14:28)
[2017-04-05] MEDS: Digoxin 125 mcg (0.125 mg) Tab PO SCH (14:28)
--- NOTE | 2017-04-05 14:30 | CARD ---
APPROVED REPORT EKG Measurement Heart [id number] CT 200P40 [id number] <Conclusion> Atrial sensed ventricular paced rhythm
--- NOTE | 2017-04-05 14:38 | PN ---
DATE: SUBJECTIVE: The patient seen and examined at the bedside, looking comfortable, feeling gassy in the stomach, had bowel movement yesterday. Right groin area is getting better after the catheterization. No headache. No dizziness. No fever. No chills. No nausea or vomiting. No hematuria or hematochezia. PHYSICAL EXAMINATION: VITAL SIGNS: Temperature 97.5, pulse 62, blood pressure 110/45, respiratory rate 18. HEENT: Normocephalic, atraumatic. Eyes; PERRLA. Extraocular muscles intact. Conjunctivae clear. Nose patent. Mucous membranes moist. NECK: Supple. No carotid bruits. No JVD, no thyromegaly. CHEST: Bilaterally symmetrical. HEART: S1 and S2 positive. LUNGS: Clear to auscultation. ABDOMEN: Soft. Bowel sounds present. No organomegaly. EXTREMITIES: No edema. No cyanosis. NEUROLOGIC: The patient is awake and alert. Moving all four extremities. No focal deficit. MEDICATIONS: Acetylcysteine, hydralazine, Brovana, Bumex, Cardizem, Claritin, Coreg, Coumadin, doxycycline, Ecotrin, Effient, Glucotrol, insulin, Imdur, Lenoxin, Lasix, Tradjenta, Lipitor, nitroglycerine, nortriptyline, Pepcid, Pulmicort, Singulair, Solu-Medrol, Zestril, and Zoloft. LABORATORY DATA: White blood cell is 11.4, hemoglobin 10.7, hematocrit 32.2, and platelets 305. Sodium 137, potassium 4.3, BUN 51, creatinine 1.4, and glucose 258. INR 1.17. PT 12.9. ASSESSMENT AND PLAN: Ms. Mallorie Francis is a 72-year-old lady with leukocytosis, anemia, renal insufficiency, uncontrolled diabetes mellitus, atrial fibrillation, was on Coumadin. Because of cath Coumadin was on hold, now started . Today, we will give again loading dose of Coumadin, coronary artery disease, myocardial infraction, history of coronary artery stent, history of bypass surgery, chronic obstructive lung disease, sleep apnea syndrome, cardiomyopathy, cardiac arrhythmias requiring pacemaker, paroxysmal atrial fibrillation, hypertension, hypercholesterolemia, history of cerebrovascular accident in the past, depression, history of abdominal surgery. Continue bronchodilators. Fingerstick was on hold before cath restarted. We will try to take the patient to TCU for deconditioning. Gastrointestinal and deep venous thrombosis prophylaxis, repeat labs, and we will follow up. Tanisha Lebron MD CONTRERAS
--- NOTE | 2017-04-05 17:24 | PN ---
DATE OF SERVICE: 04/05/2017 SUBJECTIVE: The patient is seen lying in bed on telemetry. She underwent a repeat cardiac catheterization yesterday and was found to have in-stent restenosis of her RCA as well as progression of disease in the RCA. She underwent repeat PCI. She currently feels comfortable. She denies any chest pain. MEDICATIONS: Her current medications include Mucomyst, hydralazine 10 mg q. 12 hours, Brovana, Bumex 0.5 mg daily, diltiazem CD 180 mg daily, Claritin, carvedilol 25 mg b.i.d., Coumadin, doxycycline, DuoNeb inhaler, Ecotrin, Effient 10 mg daily, Glucotrol 10 mg daily, insulin, Imdur 60 mg b.i.d., digoxin 0.125 mg daily, Lasix 40 mg b.i.d., Tradjenta 5 mg daily, Lipitor 20 mg daily, Pamelor 10 mg t.i.d., Pepcid 20 mg daily, Pulmicort inhaler, Singulair 10 mg daily, Solu-Medrol 20 mg q. 12 hours, Zestril 20 mg daily, and Zoloft 50 mg daily at bedtime. OBJECTIVE: GENERAL: She is a middle-aged woman who appears comfortable at rest. VITAL SIGNS: Her blood pressure is 110/46, pulse of 60 with ventricular pacing, respirations are 14. She is afebrile. NECK: No JVD. CHEST: Diminished breath sounds at the bases. HEART: PMI displaced laterally with soft tones noted. ABDOMEN: Soft, nontender. Normoactive bowel sounds. EXTREMITIES: No edema. SKIN: Warm and dry. DIAGNOSTIC DATA: Potassium 4.7, BUN and creatinine 51 and 1.4, glucose of 258, white count 11.4, hemoglobin and hematocrit 10.7 and 32.2, platelet count of 305,000. INR is 1.17. IMPRESSION: 1. Recent acute coronary syndrome, status post percutaneous coronary intervention of right coronary artery, currently improved. 2. Severe left ventricular dysfunction. 3. History of diabetes. 4. Rest of problems as noted. RECOMMENDATIONS: Her current medications will be continued; however, her Lasix can be switched to oral administration at this time. Bumex will be discontinued. Coumadin loading will continue. Aspirin and Effient use will continue as well. She was encouraged to increase ambulation. If stable, discharge home tomorrow would be reasonable. Dwight Patiño MD
--- NOTE | 2017-04-05 21:32 | PN ---
DATE: 04/05/2017 REFERRING PHYSICIAN: Tanisha Lebron MD. SUBJECTIVE: She is lying in the bed at 45 degrees status post cardiac cath and angioplasty, feels weak and tired, still have cough and sputum production. No nausea, no vomiting, no diarrhea, leg pain, leg swelling. PHYSICAL EXAMINATION: GENERAL: In no acute distress. VITAL SIGNS: Temperature 98, heart rate 60, respiratory rate is 20, blood pressure 122/61, and pulse ox 95% on room air. HEENT: Moist mucous membrane. No ulcer or thrush noted. Crowded airway. NECK: Supple. No JVD. LUNGS: Reveal scattered rhonchi. HEART: S1 and S2. ABDOMEN: Soft and nontender. No organomegaly. Right looks okay. EXTREMITIES: There is no edema. NEUROLOGIC: Alert, awake, can follow simple commands. MEDICATIONS: She is on Mucomyst 20% inhaled twice a day, hydralazine 10 mg q.12h., Brovana 15 mcg inhaled twice a day, Cardizem CD 180 mg daily, Claritin 10 mg daily, Coreg 25 mg twice a day, Coumadin 7.5 mg given, doxycycline 100 mg twice a day, DuoNeb four times daily, Ecotrin 81 mg daily, Effient 10 mg daily, glipizide 10 mg daily, insulin coverage, Imdur 60 mg twice a day, digoxin 0.125 mg daily, Lasix 40 mg twice a day, Tradjenta 5 mg daily, Lipitor 20 mg daily, Nitrostat p.r.n. basis, nortriptyline 10 mg three times a day, Pepcid 20 mg twice a day, Pulmicort inhaled twice a day, Singulair 10 mg daily, Solu-Medrol 20 mg q.12h., Zestril 20 mg daily, and Zoloft 50 mg at bedtime. LABORATORY DATA: Shows hemoglobin 10.7, hematocrit 32.2, WBC is 11.4, platelets is 305. INR is 1.17. Sodium 137, potassium 4.7, chloride 99, bicarbonate 23, BUN is 51, creatinine 1.4, glucose 258, calcium is 9.9. Status post cardiac cath with PCI of mid RCA with drug-eluted stent. IMPRESSION AND PLAN: Coronary artery disease, myocardial infarction, history of coronary stent, history of bypass surgery, chronic obstructive lung disease, sleep apnea syndrome, cardiomyopathy, cardiac arrhythmia requiring pacemaker, persistent atrial fibrillation, hypertension, diabetes, hyperlipidemia, history of cerebrovascular accident, depression, presents immediately with myocardial infarction, found to have right coronary artery disease, status post stent. Keep head elevated at 45. Treat with bronchodilator, gastric refluxes, may continue anticoagulation, may give Coumadin today. INR in the morning. Thank you and we will follow with you. Rosina Gabriel MD
[2017-04-06 06:12] VITALS: O2SAT 97
[2017-04-06] MEDS: Albuterol-Ipratrop 3 mg / 0.5 (3 ml) UD INH SCH ×2 (07:40→11:09)
[2017-04-06] MEDS: Arformoterol 15 mcg/2 ml Inh Sol IH SCH (07:40)
[2017-04-06] MEDS: Budesonide 0.5 mg/2 ml Inhal Susp UD IH SCH (07:40)
[2017-04-06 07:57] LABS: INR 1.1 (0.93-1.08)
[2017-04-06] MEDS: Insulin Reg-MEDIUM-Coverage SC SCH ×2 (08:22→12:38)
--- NOTE | 2017-04-06 08:50 | PN ---
DATE: 04/06/2017 SUBJECTIVE: The patient is seen lying in bed on telemetry. She is comfortable. She did ambulate yesterday with no chest discomfort. OBJECTIVE: GENERAL: She is a middle age woman, who is comfortable at present time. VITAL SIGNS: Blood pressure is 130/66 with pulse of 70 and paced, and respirations are 14. She is afebrile. HEENT: No JVD. CHEST: A few scattered rhonchi. HEART: PMI displaced laterally with soft tones noted. Systolic murmur is present at the low left sternal border. ABDOMEN: Soft and nontender. Normoactive bowel sounds. EXTREMITIES: No edema. MEDICATIONS: Her current medications include Apresoline, Brovana, diltiazem CD 180 mg daily, Claritin, Carvedilol 25 mg b.i.d., Warfarin, doxycycline, DuoNeb inhaler, Ecotrin, Effient 10 mg daily, Glucotrol, insulin coverage, Imdur 60 mg b.i.d., digoxin 0.125 mg daily, Lasix 40 mg b.i.d., Tradjenta 5 mg daily, Lipitor 20 mg daily, Pamelor 10 mg t.i.d., Pepcid, Pulmicort inhaler, Singulair, Solu-Medrol, Zestril 20 mg daily and Zoloft. IMPRESSION: 1. Recent acute coronary syndrome status post percutaneous coronary intervention of right coronary artery clinically improved. 2. Severe left ventricular dysfunction. 3. Status post prior bypass surgery, multivessel percutaneous coronary intervention. 4. Atrial fibrillation. 5. Ventricular tachycardia status post implantable cardioverter-defibrillator implant. 6. Rest of the problems as noted. RECOMMENDATIONS: From a cardiac standpoint, she appears stable for discharge home today. Continue Coumadin loading will be planned as an outpatient. Her current medications will be continued. Continue sodium and fluid restriction as well as risk factors control were advised. Dwight Patiño MD
[2017-04-06] MEDS: MethylPREDNISolone 40 mg Vial IVP SCH (11:01)
[2017-04-06] MEDS: Acetylcysteine 20% Inhal Soln (4ml) PO SCH (11:01)
[2017-04-06] MEDS: Umeclidinium Bromide [Incruse Ellipta] 62.5 MCG) IH SCH (11:02)
[2017-04-06 12:32] VITALS: RESP 19; TEMP 97.3
[2017-04-06] MEDS: diltiaZEM 180 mg/24 Hours CD Cap PO SCH (13:02)
[2017-04-06] MEDS: Digoxin 125 mcg (0.125 mg) Tab PO SCH (13:02)
[2017-04-06 13:04] VITALS: BP 128/50; PULSE 68
--- NOTE | 2017-04-07 09:06 | PN ---
DATE: 04/04/2017 SUBJECTIVE: The patient is seen and examined on the bedside. Looking comfortable. No nausea or vomiting. No diarrhea. No hematuria or hematochezia. No swelling of the leg. No chest pain. No palpitations. No headache or dizziness. The patient is post cath, relaxing, having her dinner. PHYSICAL EXAMINATION: VITAL SIGNS: Temperature 98.3, pulse 66, blood pressure 123/51 and respiratory rate 18. HEENT: Head, normocephalic and atraumatic. Eyes, PERRLA. Extraocular muscles intact. Conjunctivae clear. Nose patent. Mucous membranes moist. NECK: Supple. No carotid bruits. No JVD or thyromegaly. CHEST: Bilaterally symmetrical. HEART: S1 and S2 positive. LUNGS: Clear to auscultation. ABDOMEN: Soft. Bowel sounds present. No organomegaly. EXTREMITIES: No edema. No cyanosis. On the right groin area, there is dressing due to catheterization. NEUROLOGICAL: The patient is awake and alert. Moving all four extremities. No focal deficits. MEDICATIONS: Acetylcysteine, hydralazine, Brovana, Bumex, Cardizem, Claritin, Coreg, Coumadin, doxycycline, Ecotrin, Effient and Glucotrol. LABORATORY DATA: White blood cells 8.5, hemoglobin 10.4, hematocrit 30.9, platelets 275. Sodium 134, potassium 4.3, BUN 47, creatinine 1.3 and glucose 323. ASSESSMENT AND PLAN: Ms. Mallorie Crandall is a 72-year-old lady with multiple medical problems, came with chest pain and shortness of breath, has non-ST elevation myocardial infarction, congestive heart failure, severe coronary artery disease, coronary artery bypass graft, diabetes mellitus, chronic obstructive pulmonary disease, colonic resection/ileostomy, chronic pain syndrome, depression, insomnia, went for cardiac catheterization today. As per the patient, old stents are open and she got new two stents, waiting for the official reports of the procedure. Meanwhile, continue present treatment. Gastrointestinal and deep venous thrombosis prophylaxis. Repeat labs. We will follow up. Tanisha Lebron MD
--- NOTE | 2017-04-07 09:39 | DS ---
CHIEF COMPLAINT: This is a 72-year-old female who had came in to the hospital. She had a recent acute ID. She had PCI of the right coronary artery disease. The patient had severe LV dysfunction. She had improvement of her symptoms and now is going to be discharged home. No headaches or dizziness. No nausea. No vomiting. PHYSICAL EXAMINATION: VITAL SIGNS: Temperature is 98.5, pulse of 72, blood pressure 116/58, respirations 20, and O2 saturation is 97%. GENERAL: The patient is lying in bed, flat, comfortable. HEENT: No oral lesion. Anicteric sclerae. Moist mucosa. NECK: No JVD, adenopathy, or thyromegaly. CARDIOVASCULAR: S1 and S2, regular. No murmurs, rubs, or gallops. LUNGS: Good bilateral air entry. Bilateral rhonchi. No rales. ABDOMEN: Bowel sounds are positive, soft, nontender and nondistended. EXTREMITIES: No cyanosis, clubbing or edema. ASSESSMENT: 1. Percutaneous coronary intervention of right coronary artery. 2. Coronary artery disease. 3. Congestive heart failure secondary to systolic dysfunction, stable by catheterization. 4. Diabetes type 2. 5. Atrial fibrillation, on Coumadin. 6. Pacemaker. 7. Dyslipidemia. 8. Depression. PLAN: The patient does not wish to go to the Transitional Care Unit. The patient want to be on Coumadin. She does have her medication. She is asking for discharge. She has been cleared by Dr. Patiño to be discharged home. The patient is on doxycycline for antibiotics. She is on glipizide for her diabetes. She is on carvedilol for her heart. She is going to continue with isosorbide. She is on digoxin for her CHF. She is receiving Lipitor for dyslipidemia. She is on her Pamelor. The patient is on steroids and this will be discontinued. She is on lisinopril for her cardiomyopathy. She is going to follow up with Dr. Patiño/Dr. Kemp and also with the primary care doctor in 1 to 2 weeks. CONDITION: Stable. ACTIVITIES: Increase as tolerated. Devonte Reyna MD MTDJoselin
== END 2017-04-06 14:35 | disposition home or self-care (01) | DRG 246 ==
LOC: ED 14:52 → ERH 17:17 → 2RNO 18:22 → 2RSO 04-04 17:31
PROVIDERS: ADMIT Internal Medicine; ATTEND Internal Medicine
PROC: 3E0F7GC Introduction of Other Therapeutic Substance into Respiratory Tract, Via Natural or Artificial Opening (ICD-10-PCS; 2017-03-31)
PROC: 027035Z Dilation of Coronary Artery, One Artery with Two Drug-eluting Intraluminal Devices, Percutaneous Approach (ICD-10-PCS; principal; 2017-04-04)
PROC: 4A023N7 Measurement of Cardiac Sampling and Pressure, Left Heart, Percutaneous Approach (ICD-10-PCS; 2017-04-04)
PROC: B211YZZ Fluoroscopy of Multiple Coronary Arteries using Other Contrast (ICD-10-PCS; 2017-04-04)
PROC: B215YZZ Fluoroscopy of Left Heart using Other Contrast (ICD-10-PCS; 2017-04-04)
DX: I21.4 Non-ST elevation (NSTEMI) myocardial infarction (principal); I50.23 Acute on chronic systolic (congestive) heart failure; I47.2 Ventricular tachycardia; I42.9 Cardiomyopathy, unspecified; E11.65 Type 2 diabetes mellitus with hyperglycemia; J44.9 Chronic obstructive pulmonary disease, unspecified; I48.1 Persistent atrial fibrillation; T82.855A Stenosis of coronary artery stent, initial encounter; I48.0 Paroxysmal atrial fibrillation; I25.10 Atherosclerotic heart disease of native coronary artery without angina pectoris; I67.9 Cerebrovascular disease, unspecified; G47.00 Insomnia, unspecified; F32.9 Major depressive disorder, single episode, unspecified; E78.00 Pure hypercholesterolemia, unspecified; E78.1 Pure hyperglyceridemia; G89.4 Chronic pain syndrome; I11.0 Hypertensive heart disease with heart failure; I95.1 Orthostatic hypotension; I34.0 Nonrheumatic mitral (valve) insufficiency; D64.9 Anemia, unspecified; D72.829 Elevated white blood cell count, unspecified; G47.30 Sleep apnea, unspecified; Y83.1 Surgical operation with implant of artificial internal device as the cause of abnormal reaction of the patient, or of later complication, without mention of misadventure at the time of the procedure; Z86.73 Personal history of transient ischemic attack (TIA), and cerebral infarction without residual deficits; Z79.01 Long term (current) use of anticoagulants; Z79.4 Long term (current) use of insulin; Z79.82 Long term (current) use of aspirin; Z79.899 Other long term (current) drug therapy; Z95.1 Presence of aortocoronary bypass graft; Z95.810 Presence of automatic (implantable) cardiac defibrillator; Z98.1 Arthrodesis status; Z87.891 Personal history of nicotine dependence

== ENCOUNTER 2017-04-21 12:35 | Inpatient (IN) | payer MEDICARE, MEDICAID ==
[2017-04-21] MEDS ORDERED: Sodium Chloride 0.9% 1,000 ML IV STA (13:04)
--- NOTE | 2017-04-21 13:10 | ED PDOC ---
Arrival/HPI - General Chief Complaint: Syncope Time Seen by Provider: 04/21/17 12:56 Historian: Patient - History of Present Illness Narrative History of Present Illness (Text): 04/21/17 13:05 A 72 year old female, whose past medical history includes COPD, heart attack, open heart surgery (2002) and CHF, was brought in from psych inpatient for syncopal episode. Patient presents to the emergency department complaining of lightheadedness, headache and nausea s/p syncopal episode. Denies having these symptoms in the past. Patient was admitted to [facility] for depression and UTI on 04/18. Denies any chest pain, SOB or any other complaints at this time. PMD: Dr. Lebron Symptom Onset: Sudden Symptom Course: Unchanged Activities at Onset: Rest Modifying Factors (Text): none Context: Other (psych inpatient) Past Medical History - Provider Review Nursing Documentation Reviewed: Yes - Infectious Disease Hx of Infectious Diseases: None - Cardiac Hx Cardiac Disorders: Yes Hx Congestive Heart Failure: Yes - Pulmonary Hx Respiratory Disorders: Yes Hx Chronic Obstructive Pulmonary Disease (COPD): Yes - Neurological Hx Neurological Disorder: No - HEENT Hx HEENT Disorder: No - Renal Hx Renal Disorder: No - Endocrine/Metabolic Hx Endocrine Disorders: Yes Hx Diabetes Mellitus Type 2: Yes - Hematological/Oncological Hx Blood Disorders: No - Integumentary Hx Dermatological Disorder: No - Musculoskeletal/Rheumatological Hx Musculoskeletal Disorders: No - Gastrointestinal Hx Gastrointestinal Disorders: Yes (ileostomy reversal) - Genitourinary/Gynecological Hx Genitourinary Disorders: No - Psychiatric Hx Psychophysiologic Disorder: Yes Hx Depression: Yes Hx Substance Use: No - Surgical History Hx Cardiac Catheterization: Yes Hx Coronary Stent: Yes Hx Musculoskeletal Surgery: Yes (neck fusion) Hx Open Heart Surgery: Yes - Anesthesia Hx Anesthesia: Yes Hx Anesthesia Reactions: No Hx Malignant Hyperthermia: No - Suicidal Assessment Feels Threatened In Home Enviroment: No Family/Social History - Physician Review Nursing Documentation Reviewed: Yes Family/Social History: No Known Family HX Smoking Status: Former Smoker Hx Alcohol Use: No Hx Substance Use: No Allergies/Home Meds Allergies/Adverse Reactions: Allergies clopidogrel bisulfate [From Plavix] Allergy (Verified 04/21/17 12:52) RASH Home Medications: Home Meds Medication Instructions Recorded Confirmed Unobtainable 04/21/17 04/21/17 Review of Systems - Physician Review All systems were reviewed & negative as marked: Yes - Review of Systems Constitutional: Other (lightheadedness) Respiratory: absent: SOB Cardiovascular: Syncope. absent: Chest Pain Gastrointestinal: Nausea Neurological: Headache Physical Exam Vital Signs Reviewed: Yes Vital Signs Temp Pulse Resp BP Pulse Ox 04/21/17 13:29 65 18 116/61 98 04/21/17 12:48 98.0 F 69 18 114/59 L 98 Temperature: Afebrile Blood Pressure: Hypotensive Pulse: Regular Respiratory Rate: Normal Appearance: Positive for: Well-Appearing, Non-Toxic, Comfortable Pain Distress: None Mental Status: Positive for: Alert and Oriented X 3 Finger Stick Blood Glucose: 121 - Systems Exam Head: Present: Atraumatic, Normocephalic Pupils: Present: PERRL Extroacular Muscles: Present: EOMI Conjunctiva: Present: Normal Mouth: Present: Moist Mucous Membranes Neck: Present: Normal Range of Motion Respiratory/Chest: Present: Clear to Auscultation, Good Air Exchange. No: Respiratory Distress, Accessory Muscle Use Cardiovascular: Present: Regular Rate and Rhythm, Normal S1, S2. No: Murmurs Abdomen: Present: Normal Bowel Sounds. No: Tenderness, Distention, Peritoneal Signs Back: Present: Normal Inspection Upper Extremity: Present: Normal Inspection. No: Cyanosis, Edema Lower Extremity: Present: Normal Inspection. No: Edema Neurological: Present: GCS=15, CN II-XII Intact, Speech Normal Skin: Present: Warm, Dry, Normal Color. No: Rashes Psychiatric: Present: Alert, Oriented x 3, Normal Insight, Normal Concentration Medical Decision Making ED Course and Treatment: 04/21/17 13:00 Impression: A 72 year old female with lightheadedness, headache and nausea s/p sycnopal episode. Plan: -- EKG -- CT head -- Urinalysis -- labs -- IV fluids, Toradol, Zofran -- Reassess and disposition Prior Visits: Notes and results from previous visits were reviewed. Patient last reported to the emergency department on 04/18/17 for evaluation of suicidal ideation. Patient was admitted for UTI and depression. Progress Notes: 04/21/17 13:04 EKG: Ordered, reviewed, and independently interpreted the EKG. Rate: 66 BPM Rhythm: pace rhythm Interpretation: wide QRS, ST normal 04/21/17 13:47 CT HEAD WITHOUT CONTRAST Creator : Ramu Osei MD FINDINGS: HEMORRHAGE: No intracranial hemorrhage. BRAIN: No mass effect or edema. No atrophy or chronic microvascular ischemic changes. VENTRICLES: Unremarkable. No hydrocephalus. CALVARIUM: Unremarkable. PARANASAL SINUSES: Unremarkable as visualized. No significant inflammatory changes. MASTOID AIR CELLS: Unremarkable as visualized. No inflammatory changes. IMPRESSION: Normal CT of the Head. 04/21/17 14:[address] Lebron in emergency department and agrees to admit patient. - Lab Interpretations Lab Results: 04/21/17 13:07 04/21/17 13:39 Lab Results 04/21/17 13:39: PT 43.2 H, INR 3.82 H*, APTT 45.1 H, D-Dimer, Quantitative Pending 04/21/17 13:39: Sodium 136, Potassium 3.8, Chloride 100, Carbon Dioxide 27, Anion Gap 13, BUN 21, Creatinine 1.4 H, Est GFR ( Amer) 45, Est GFR (Non- Af Amer) 37, Random Glucose 102, Calcium 9.2, Total Bilirubin 0.8, AST 34, ALT 33, Alkaline Phosphatase 89, Troponin I 0.15 H* D, NT-Pro-B Natriuret Pep 2790 H , Total Protein 6.4, Albumin 3.7, Globulin 2.7, Albumin/Globulin Ratio 1.4 04/21/17 13:07: WBC 8.4 D, RBC 3.36 L, Hgb 10.3 L, Hct 30.7 L, MCV 91.4, MCH 30.7, MCHC 33.6, RDW 15.8 H, Plt Count 302, MPV 9.4, Gran % 75.1 H, Lymph % ( Auto) 13.2 L, [place] % (Auto) 9.3 H, Eos % (Auto) 2.2, Baso % (Auto) 0.2, Gran # 6.28, Lymph # 1.1 L, [place] # 0.8 H, Eos # 0.2, Baso # 0.02 I have reviewed the lab results: Yes - RAD Interpretation Radiology Orders: 04/21/17 12:59 HEAD W/O CONTRAST [CT] Stat - EKG Interpretation Interpreted by ED Physician: Yes Type: 12 lead EKG - Medication Orders Current Medication Orders: Discontinued Medications Sodium Chloride (Sodium Chloride 0.9%) 1,000 mls @ 999 mls/hr IV .Q1H1M STA Stop: 04/21/17 14:04 Last Admin: 04/21/17 13:42 Dose: 999 mls/hr eMAR Start Stop Document 04/21/17 13:42 SE (Rec: 04/21/17 13:42 [id number]) Intravenous Solution Start Date 04/21/17 Start Time 13:42 Ketorolac Tromethamine (Toradol) 30 mg IVP STAT STA Stop: 04/21/17 13:01 Last Admin: 04/21/17 13:42 Dose: 30 mg MAR Pain Assessment Document 04/21/17 13:42 SE (Rec: 04/21/17 13:42 [id number]) Pain Reassessment Is this a pain reassessment? No Sleep Is patient sleeping during reassessment? No Presence of Pain Presence of Pain Yes Pain Scale Used Pain Scale Used Numeric IVP Administration Document 04/21/17 13:42 SE (Rec: 04/21/17 13:42 [id number]) Charges for Administration # of IVP Administrations 1 Ondansetron HCl (Zofran Inj) 4 mg IVP STAT STA Stop: 04/21/17 13:01 Last Admin: 04/21/17 13:42 Dose: 4 mg IVP Administration Document 04/21/17 13:42 SE (Rec: 04/21/17 13:42 [id number]) Charges for Administration # of IVP Administrations 1 - Scribe Statement The provider has reviewed the documentation as recorded by the Scribcristian Ybarra All medical record entries made by the Yaniraibcristian were at my direction and personally dictated by me. I have reviewed the chart and agree that the record accurately reflects my personal performance of the history, physical exam, medical decision making, and the department course for this patient. I have also personally directed, reviewed, and agree with the discharge instructions and disposition. Disposition/Present on Arrival - Present on Arrival History of DVT/PE: No History of Uncontrolled Diabetes: No Urinary Catheter: No History of Decub. Ulcer: No History Surgical Site Infection Following: None - Disposition Patient Problems: Current Active Problems Problem Status Onset Depression Acute UTI (urinary tract infection) Acute Referrals: Tanisha Lebron MD [Primary Care Provider] - Follow up with primary Forms: [employer] ([place])
[2017-04-21 13:20] LABS: BASO # 0.02 K/mm3 (0.0-2.0); BASO % 0.2 % (0.0-3.0); EOS # 0.2 (0.0-0.7); EOS % 2.2 % (1.5-5.0); GRAN # 6.28 (1.4-6.5); GRAN % 75.1 % (50.0-68.0); HEMATOCRIT 30.7 % (36.0-48.0); LYMPH # 1.1 (1.2-3.4); LYMPH % 13.2 % (22.0-35.0); MEAN CELL VOLUME 91.4 fl (80.0-105.0); MEAN CORPUSCULAR HEMOGLOBIN 30.7 pg (25.0-35.0); MEAN CORPUSCULAR HGB CONC 33.6 g/dl (31.0-37.0); MEAN PLATELET VOLUME 9.4 fl (7.0-11.0); MONO # 0.8 (0.1-0.6); MONO % 9.3 % (1.0-6.0); RED CELL DISTRIBUTION WIDTH 15.8 % (11.5-14.5); WHITE BLOOD COUNT 8.4 10^3/ul (4.5-11.0)
--- NOTE | 2017-04-21 13:45 | CT ---
PROCEDURE: CT HEAD WITHOUT CONTRAST. HISTORY: syncope COMPARISON: 12/24/2016 CT TECHNIQUE: Axial computed tomography images were obtained through the head/brain without intravenous contrast. Radiation dose: Total exam DLP = 714 mGy-cm. This CT exam was performed using one or more of the following dose reduction techniques: Automated exposure control, adjustment of the mA and/or kV according to patient size, and/or use of iterative reconstruction technique. FINDINGS: HEMORRHAGE: No intracranial hemorrhage. BRAIN: No mass effect or edema. No atrophy or chronic microvascular ischemic changes. VENTRICLES: Unremarkable. No hydrocephalus. CALVARIUM: Unremarkable. PARANASAL SINUSES: Unremarkable as visualized. No significant inflammatory changes. MASTOID AIR CELLS: Unremarkable as visualized. No inflammatory changes. OTHER FINDINGS: None. IMPRESSION: Normal CT of the Head.
[2017-04-21 13:52] LABS: ALB/GLOB RATIO 1.4 (1.1-1.8); BILIRUBIN,TOTAL 0.8 mg/dL (0.2-1.3); CALCIUM 9.2 mg/dL (8.4-10.5); POTASSIUM 3.8 mmol/L (3.6-5.0); TOTAL PROTEIN 6.4 g/dL (5.8-8.3)
[2017-04-21 13:56] LABS: INR 3.82 (0.93-1.08)
[2017-04-21 13:57] LABS: PARTIAL THROMBOPLASTIN TIME 45.1 Seconds (25.1-36.5)
[2017-04-21 14:16] LABS: TROPONIN I 0.15 ng/mL
--- NOTE | 2017-04-21 16:40 | CARD ---
APPROVED REPORT EKG Measurement Heart [id number] <Conclusion> Electronic ventricular pacemaker
[2017-04-21 16:54] VITALS: BMI 24.3
[2017-04-21] MEDS ORDERED: Influenza Vaccine 60 mcg/0.5 mL SYR (4YR UP) IM ONE (16:54)
[2017-04-21] MEDS ORDERED: Pneumococcal 23-Valent Vaccine IM ONE (16:54)
--- NOTE | 2017-04-21 20:03 | CP.PCM.CON ---
History of Present Illness - History of Present Illness History of Present Illness: Infectious Disease Consultation: April 21, 2017 72 yo female originally in psychiatry for depression. The patient developed chest pain with radiation. She was transferred to the ER after developing a syncopal like episode in psychiatric floor. The patient has lightheadedness, headache, and nausea. The patient denies chest pain or SOB at this time. The paitent was found to have ESBL + E. Coli in the urine cultures here. PMHx: COPD, AMI, CHF, CAD, DM Type 2, Angina PSHx: CABG, PPM placement Allergies: Clopidogrel Social Hx: Ex-Smoker, No EtOH or illicit drug use Medications: Hydralazine, Warfarin, Sertraline, Prasugrel, Nortriptyline, Nitroglycerin, Montelukast, Lisinopril, Linagliptin, Levocetirizine, Glipizide, Furosemide, Famotidine, Docusate, Diltiazem, digoxin, Carvedilol, Lipitor, Albuterol, Symbicort Family Hx: none given ROS: Depression, SOB, syncopal episode, chest pain No melena, hematuria, hematemesis, hematochezia, depression, anxiety, diarrhea, vomiting, vision loss, hearing loss Past Patient History - Infectious Disease Hx of Infectious Diseases: None - Past Social History Smoking Status: Former Smoker - CARDIAC Hx Cardiac Disorders: Yes Hx Angina: Yes (mi) Hx Cardia Arrhythmia: Yes (afib) Hx Congestive Heart Failure: Yes Hx Heart Murmur: Yes Hx Hypercholesterolemia: Yes Hx Internal Defibrillator: Yes Hx Pacemaker: Yes Other/Comment: cabg 3 vessels - PULMONARY Hx Respiratory Disorders: Yes Hx Asthma: Yes Hx Chronic Obstructive Pulmonary Disease (COPD): Yes Hx Emphysema: Yes Hx Pneumonia: Yes - NEUROLOGICAL Hx Transient Ischemic Attacks (TIA): Yes - HEENT Hx HEENT Problems: Yes (eyeglasses) Other/Comment: visually impaired - RENAL Hx Chronic Kidney Disease: Yes Hx Renal Failure: Yes - ENDOCRINE/METABOLIC Hx Endocrine Disorders: Yes Hx Diabetes Mellitus Type 2: Yes - HEMATOLOGICAL/ONCOLOGICAL Hx Blood Disorders: No - INTEGUMENTARY Hx Dermatological Problems: Yes Other/Comment: multiple skin discolorations arms, fading old bruises b/l knees, multiple surgical scars to abd, and lcw from pacemaker insertion - MUSCULOSKELETAL/RHEUMATOLOGICAL Hx Falls: Yes - GASTROINTESTINAL Hx Gastrointestinal Disorders: Yes (ileostomy reversal 2010) - GENITOURINARY/GYNECOLOGICAL Hx Urinary Tract Infection: Yes - PSYCHIATRIC Hx Substance Use: No - SURGICAL HISTORY Hx Cardiac Catheterization: Yes Hx Coronary Stent: Yes Hx Musculoskeletal Surgery: Yes (neck fusioncervical spine C 5&6) Hx Open Heart Surgery: Yes - ANESTHESIA Hx Anesthesia: Yes Hx Anesthesia Reactions: No Hx Malignant Hyperthermia: No Meds Allergies/Adverse Reactions: Allergies Allergy/AdvReac Type Severity Reaction Status Date / Time clopidogrel bisulfate Allergy RASH Verified 04/21/17 12:52 [From Plavix] Physical Exam - Constitutional Appears: Non-toxic, No Acute Distress, Chronically Ill - Head Exam Head Exam: NORMOCEPHALIC - Eye Exam Eye Exam: EOMI, PERRL Pupil Exam: NORMAL ACCOMODATION, PERRL - ENT Exam ENT Exam: Mucous Membranes Moist, Normal External Ear Exam, TM's Normal Bilaterally - Neck Exam Neck exam: Positive for: Full Rom, Normal Inspection - Respiratory Exam Respiratory Exam: Clear to Auscultation Bilateral, NORMAL BREATHING PATTERN. absent: Rales, Rhonchi, Wheezes - Cardiovascular Exam Cardiovascular Exam: REGULAR RHYTHM, RRR, +S1, +S2 - GI/Abdominal Exam GI & Abdominal Exam: Normal Bowel Sounds, Soft. absent: Distended, Tenderness - Extremities Exam Extremities exam: Positive for: full ROM, normal inspection - Neurological Exam Neurological exam: Alert, CN II-XII Intact, Oriented x3 - Psychiatric Exam Psychiatric exam: Depressed - Skin Skin Exam: Intact, Normal Color Results - Vital Signs Recent Vital Signs: Last Vital Signs Temp 98 F 04/21/17 16:39 Pulse 66 04/21/17 18:00 Resp 18 04/21/17 16:39 BP 116/61 04/21/17 16:39 Pulse Ox 99 04/21/17 15:26 - Labs Result Diagrams: 04/21/17 13:07 04/21/17 13:39 Labs: Laboratory Results - last 24 hr 04/21/17 16:24 POC Glucose (mg/dL) 78 Assessment & Plan - Assessment and Plan (Free Text) Assessment: 72 yo female with original admission for depression with syncopal episode in psychiatry. Patient was also found to have a UTI with ESBL + E. Coli. Will start Meropenem for antibiotic treatment at this time. Supportive care. Undergoing heart evaluation. Patient does have renal insufficiency so antibiotic dosing has been reduced accordingly. Placed on contact isolation. Syncopal episode on the psychiatric floor. Thank you for allowing me to participate in the care of the patient, we will follow with you.
[2017-04-21] MEDS: Meropenem 500 MG in Sodium Chloride 0.9% 50 ML IVPB SCH (21:33)
[2017-04-21] MEDS: Insulin Reg-LOW-Coverage SC SCH (21:52)
[2017-04-21 21:57] LABS: INR 3.59 (0.93-1.08)
--- NOTE | 2017-04-22 03:28 | HP ---
CHIEF COMPLAINT: Syncope. HISTORY OF PRESENT ILLNESS: Ms. Tito Nobles is a 72-year-old, my private patient with past medical history of COPD, coronary artery disease, open heart surgery, congestive heart failure, was brought from [facility] inpatient for syncopal episode. The patient presents to the emergency department complaining of lightheadedness, syncope, nauseous, status post syncopal attack. Denies fever or chills. No shortness of breath. The patient was admitted to psych department for depression and UTI on 04/18/2017. Denies at this moment fever or chills. No hematuria or hematochezia. PAST MEDICAL HISTORY: Congestive heart failure, COPD, respiratory distress, diabetes mellitus type 2, ileostomy reversal, depression, coronary stents, cardiac catheterization, history of neck fusion and open heart surgery. FAMILY HISTORY: Father and mother, noncontributory. HABITS: Former smoker, no alcohol, no substance abuse. ALLERGIES: THE PATIENT IS ALLERGIC WITH PLAVIX. HOME MEDICATIONS: Reviewed by me. REVIEW OF SYSTEMS: The patient is seen and examined on the bedside in the emergency room, still having lightheadedness and headache. No shortness of breath. No chest pain. No nausea or vomiting. No fever. No chills. PHYSICAL EXAMINATION: VITAL SIGNS: Temperature 98, pulse 59, respiratory rate 18 and blood pressure 114/59. HEENT: Head is normocephalic and atraumatic. Eyes; PERRLA. Extraocular muscles are intact. Conjunctivae are clear. Nose is patent. Mucous membranes are moist. NECK: Supple. No carotid bruits. No JVD or thyromegaly. CHEST: Bilaterally symmetrical. HEART: S1 and S2 positive. LUNGS: Clear to auscultation. ABDOMEN: Soft. Bowel sounds positive. No organomegaly. EXTREMITIES: No edema, no cyanosis. NEUROLOGIC: The patient is awake and alert. Moving all 4 extremities. No focal deficits. LABORATORY DATA: White blood cells is 8.4, hemoglobin 10.3, hematocrit 30.7, platelets 302. Sodium 136, potassium 3.8, BUN 21, creatinine 1.4 and glucose 102. ASSESSMENT AND PLAN: Ms. Tito Nobles is a 72-year-old female with anemia, renal insufficiency, history of chronic obstructive pulmonary disease, coronary artery disease, open heart surgery, congestive heart failure, obstructive sleep apnea, now depression, suicidal attempt, diabetes mellitus, ileostomy and reversal of the ileostomy, neck fusion, readmitted the patient to the medical floor, Cardiology and Neurology consult called. Digoxin level and PT/INR ordered. We will repeat labs. We will follow. Tanisha Lebron MD
[2017-04-22] MEDS: Albuterol 0.083% Inhal Sol (2.5 mg/3 mL) UD INH SCH ×3 (07:48→20:40)
--- NOTE | 2017-04-22 08:12 | CP.PCM.PN ---
Subjective - Date & Time of Evaluation Date of Evaluation: 04/22/17 Time of Evaluation: 07:00 - Subjective Subjective: Transferred to [facility] b/o syncopal spell on psych yesterday after talking with director social service who gave her very limited options for housing. She feels well this AM. She does not recall the events. No CP, SOB, shocks V/S noted V. Paced PE: Lungs: clear Cor.: S1S2, sys. murmur Abd.: soft Ext.; no edema Neuro.: alert Labs 04/21 noted: Dig.= 0.9, INR= 3.5 ECG 04/21: V. Paced CT head: NL. Objective - Vital Signs/Intake and Output Vital Signs (last 24 hours): Temp Pulse Resp BP Pulse Ox 97.9 F 68 20 107/47 L 95 04/22/17 06:00 04/22/17 06:00 04/22/17 06:00 04/22/17 06:00 04/22/17 06:00 Intake and Output: 04/22/17 04/22/17 06:59 18:59 Intake Total 530 Output Total 0 Balance 530 - Medications Medications: Current Medications Albuterol Sulfate (Albuterol 0.083% Inhal Misty (2.5 Mg/3 Ml) Ud) 2.5 mg INH TIDRESP [facility] Last Admin: 04/22/17 07:48 Dose: 2.5 mg Aspirin (Aspirin Chewable) 81 mg PO DAILY [facility] Atorvastatin Calcium (Lipitor) 20 mg PO DAILY [facility] Carvedilol (Coreg) 12.5 mg PO BID [facility] Digoxin (Lanoxin) 0.25 mg PO QOTHERDAY [facility] Diltiazem HCl (Cardizem Cd) 180 mg PO DAILY [facility] Docusate Sodium (Colace) 100 mg PO BID [facility] Famotidine (Pepcid) 40 mg PO DAILY [facility] Ferrous Sulfate (Feosol) 324 mg PO DAILY [facility] Furosemide (Lasix) 40 mg PO BID [facility] Glipizide (Glucotrol) 5 mg PO DAILY [facility] Hydralazine HCl (Apresoline) 25 mg PO TID [facility] Meropenem 500 mg/ Sodium (Chloride) 50 mls @ 100 mls/hr IVPB Q12 [facility] PRN Reason: Protocol Last Admin: 04/21/17 21:33 Dose: 100 mls/hr Insulin Human Regular (Humulin R Low) 0 units SC ACHS [facility] PRN Reason: Protocol Last Admin: 04/21/17 21:52 Dose: Not Given Lisinopril (Zestril) 20 mg PO DAILY [facility] Loratadine (Claritin) 10 mg PO DAILY [facility] Montelukast Sodium (Singulair) 10 mg PO DAILY [facility] Nitroglycerin (Nitrostat Sl Tab) 0.4 mg SL Q5M PRN PRN Reason: chest pain Non-Formulary Medication (Budesonide/Formoterol Fumarate [Symbicort 160-4.5 Mcg Inhaler]) 2 puff IH BID [facility] Non-Formulary Medication (Linagliptin [Tradjenta]) 5 mg PO DAILY [facility] Nortriptyline HCl (Pamelor) 10 mg PO TID [facility] Prasugrel (Effient) 10 mg PO DAILY [facility] Sertraline HCl (Zoloft) 50 mg PO DAILY [facility] - Labs Labs: PT 40.2 SECONDS (9.4-12.5) H 04/21/17 21:22 INR 3.59 (0.93-1.08) H* 04/21/17 21:22 APTT 45.1 Seconds (25.1-36.5) H 04/21/17 13:39 Assessment and Plan - Assessment and Plan (Free Text) Assessment: Syncope while on psych unit for depression and suicidal ideation. Homeless State Coagulopathy CP episode while on psych, mild + trops CAD/CABG/AZ/PCI/Severe LVD ICD NSVT PAF HBP Diabetes HLD COPD CVD Colon Resection/Ieostomy Chronic Pain Insomnia Plan: Will arrange ICD check Continue Tel Hold warfarin and check INR in AM daily Continue other cardiac meds. OOB to chair as lou. Psych F/U Shank Paperer Assistance
[2017-04-22] MEDS ORDERED: Albuterol 0.083% Inhal Sol (2.5 mg/3 mL) UD IH SCH (10:00)
[2017-04-22] MEDS ORDERED: Non Formulary Medication (Ferrous Sulfate [Feosol] 325 MG) PO SCH (10:00)
[2017-04-22] MEDS ORDERED: Albuterol HFA 90 mcg/actuation (8 g) IH SCH (10:00)
[2017-04-22] MEDS: Meropenem 500 MG in Sodium Chloride 0.9% 50 ML IVPB SCH ×2 (10:08→21:18)
[2017-04-22] MEDS: Potassium Chloride 20 mEq ER Tab PO SCH (10:16)
[2017-04-22] MEDS: diltiaZEM 180 mg/24 Hours CD Cap PO SCH (10:17)
--- NOTE | 2017-04-22 16:28 | CP.PCM.PCO ---
Physician Communication Note - Physician Communication Note Physician Communication Note: pt was provided with contact info for psych outpatient providers
[2017-04-22] MEDS: Non Formulary Medication (Budesonide/Formoterol Fumarate [Symbicort 160-4.5 Mcg Inhaler] 2 IH SCH ×2 (16:53→17:45)
[2017-04-22] MEDS: Insulin Reg-LOW-Coverage SC SCH ×3 (16:53→21:57)
[2017-04-22] MEDS: Non Formulary Medication (Linagliptin [Tradjenta] 5 MG) PO SCH (16:56)
--- NOTE | 2017-04-22 18:27 | CP.PCM.PN ---
Subjective - Date & Time of Evaluation Date of Evaluation: 04/22/17 Time of Evaluation: 18:00 - Subjective Subjective: Infectious Disease Follow Up: April 22, 2017 72 yo female originally in psychiatry for depression. The patient developed chest pain with radiation. She was transferred to the ER after developing a syncopal like episode in psychiatric floor. The patient has lightheadedness, headache, and nausea. The patient denies chest pain or SOB at this time. The patient was found to have ESBL + E. Coli in the urine cultures here. On Meropenem now. Awaiting PPM interrogation. Objective - Vital Signs/Intake and Output Vital Signs (last 24 hours): Temp Pulse Resp BP Pulse Ox 98.1 F 74 19 110/50 L 95 04/22/17 12:00 04/22/17 18:00 04/22/17 12:00 04/22/17 12:00 04/22/17 06:00 Intake and Output: 04/22/17 04/22/17 06:59 18:59 Intake Total 530 480 Output Total 0 600 Balance 530 -120 - Medications Medications: Current Medications Acetaminophen (Tylenol 325mg Tab) 650 mg PO Q6H PRN PRN Reason: Pain, Mild (1-3) Last Admin: 04/22/17 16:06 Dose: 650 mg Albuterol Sulfate (Albuterol 0.083% Inhal Misty (2.5 Mg/3 Ml) Ud) 2.5 mg INH TIDRESP [facility] Last Admin: 04/22/17 13:32 Dose: 2.5 mg Aspirin (Aspirin Chewable) 81 mg PO DAILY [facility] Last Admin: 04/22/17 10:14 Dose: 81 mg Atorvastatin Calcium (Lipitor) 20 mg PO DAILY [facility] Last Admin: 04/22/17 10:14 Dose: 20 mg Carvedilol (Coreg) 12.5 mg PO BID [facility] Last Admin: 04/22/17 17:45 Dose: 12.5 mg Digoxin (Lanoxin) 0.25 mg PO QOTHERDAY [facility] Diltiazem HCl (Cardizem Cd) 180 mg PO DAILY [facility] Last Admin: 04/22/17 10:17 Dose: 180 mg Docusate Sodium (Colace) 100 mg PO BID [facility] Last Admin: 04/22/17 17:45 Dose: 100 mg Famotidine (Pepcid) 40 mg PO DAILY [facility] Last Admin: 04/22/17 10:14 Dose: 40 mg Ferrous Sulfate (Feosol) 324 mg PO DAILY [facility] Last Admin: 04/22/17 10:13 Dose: 324 mg Furosemide (Lasix) 20 mg PO BID [facility] Last Admin: 04/22/17 17:46 Dose: Not Given Glipizide (Glucotrol) 5 mg PO DAILY [facility] Last Admin: 04/22/17 10:18 Dose: 5 mg Hydralazine HCl (Apresoline) 25 mg PO TID [facility] Last Admin: 04/22/17 17:44 Dose: Not Given Meropenem 500 mg/ Sodium (Chloride) 50 mls @ 100 mls/hr IVPB Q12 [facility] PRN Reason: Protocol Last Admin: 04/22/17 10:08 Dose: 100 mls/hr Insulin Human Regular (Humulin R Low) 0 units SC ACHS [facility] PRN Reason: Protocol Last Admin: 04/22/17 16:54 Dose: Not Given Lisinopril (Zestril) 20 mg PO DAILY [facility] Last Admin: 04/22/17 10:28 Dose: 20 mg Loratadine (Claritin) 10 mg PO DAILY [facility] Last Admin: 04/22/17 10:18 Dose: 10 mg Montelukast Sodium (Singulair) 10 mg PO DAILY [facility] Last Admin: 04/22/17 10:19 Dose: 10 mg Nitroglycerin (Nitrostat Sl Tab) 0.4 mg SL Q5M PRN PRN Reason: chest pain Non-Formulary Medication (Budesonide/Formoterol Fumarate [Symbicort 160-4.5 Mcg Inhaler]) 2 puff IH BID [facility] Last Admin: 04/22/17 17:45 Dose: Not Given Non-Formulary Medication (Linagliptin [Tradjenta]) 5 mg PO DAILY [facility] Last Admin: 04/22/17 16:56 Dose: Not Given Nortriptyline HCl (Pamelor) 10 mg PO TID [facility] Last Admin: 04/22/17 17:46 Dose: 10 mg Potassium Chloride (K-Dur 20 Meq Er Tab) 20 meq PO BRK [facility] Last Admin: 04/22/17 10:16 Dose: 20 meq Prasugrel (Effient) 10 mg PO DAILY [facility] Last Admin: 04/22/17 10:16 Dose: 10 mg - Labs Labs: PT 40.2 SECONDS (9.4-12.5) H 04/21/17 21:22 INR 3.59 (0.93-1.08) H* 04/21/17 21:22 APTT 45.1 Seconds (25.1-36.5) H 04/21/17 13:39 - Constitutional Appears: Non-toxic, No Acute Distress, Chronically Ill - Head Exam Head Exam: ATRAUMATIC, NORMOCEPHALIC - Eye Exam Eye Exam: EOMI, PERRL Pupil Exam: NORMAL ACCOMODATION, PERRL - ENT Exam ENT Exam: Mucous Membranes Moist, Normal External Ear Exam, TM's Normal Bilaterally - Neck Exam Neck Exam: Full ROM, Normal Inspection - Respiratory Exam Respiratory Exam: Clear to Ausculation Bilateral, NORMAL BREATHING PATTERN. absent: Rales, Rhonchi, Wheezes - Cardiovascular Exam Cardiovascular Exam: REGULAR RHYTHM, RRR, +S1, +S2 - GI/Abdominal Exam GI & Abdominal Exam: Soft, Normal Bowel Sounds. absent: Distended, Tenderness - Extremities Exam Extremities Exam: Full ROM, Normal Inspection - Neurological Exam Neurological Exam: Alert, Awake, CN II-XII Intact, Oriented x3 - Psychiatric Exam Psychiatric exam: Depressed - Skin Skin Exam: Intact, Normal Color Assessment and Plan - Assessment and Plan (Free Text) Assessment: 72 yo female with original admission for depression with syncopal episode in psychiatry. Patient was also found to have a UTI with ESBL + E. Coli. Will start Meropenem for antibiotic treatment at this time. Supportive care. Undergoing heart evaluation. Patient does have renal insufficiency so antibiotic dosing has been reduced accordingly. Placed on contact isolation for the ESBL+ E. Coli. Syncopal episode on the psychiatric floor. Awaiting PPM interrogation. Thank you for allowing me to participate in the care of the patient, we will follow with you.
--- NOTE | 2017-04-22 22:39 | PN ---
FOLLOWUP NOTE SUBJECTIVE: The patient initially was admitted to the psychiatric inpatient unit, but yesterday the patient had these episode almost fall. The patient was transferred on the medical site. This typewriter ribbon winder is following up on this patient. The patient initially was admitted for possible suicidal ideation. Patient tried to cut her wrist with a box puller, but over the weekend, the patient improved from the psychiatric standpoint and the patient at present moment denied being depressed and denied thoughts of killing herself. Moreover, the patient said that her symptoms were related to the fact that she was not getting along with her son and he told her out on the streets. At present moment, the patient's adopted son is willing to accept the patient in his apartment and the patient feels happy about that. The patient reported that she is not depressed any longer. The patient denied thoughts of harming herself or others. The patient made a comment "it was really stupid idea to cut myself." The patient obviously is much better. Affect is more reactive. The patient's thought process is more logical and lineal and goal-directed. OBJECTIVE: VITAL SIGNS: Stable. Temperature is 98.1, pulse 70, blood pressure 110/50, respirations 19, oxygen saturation is 95. MEDICATIONS: Reviewed. Tylenol, aspirin, Lipitor, Coreg, Celexa 5 mg daily. The patient was taking that medication. If medical team feel that it could effect QTC, but it is dose dependent and it is related to the doses more than 20 mg daily and this typewriter ribbon winder will suggest to continue that medication. Patient is also on digoxin, diltiazem, Colace, Pepcid, ferrous sulfate, Lasix, glipizide, hydralazine, Humulin, Zestril, Claritin, and meropenem. The patient also is on Singulair, nitroglycerin, nortriptyline. This typewriter ribbon winder is not sure why this medication was started to the patient. The patient is on K-Dur and also is on prasugrel. If the patient will be continued on nortriptyline, this typewriter ribbon winder will discontinue Cymbalta. Celexa will be discontinued, also the patient should not be on a Zoloft then. MENTAL STATUS EXAMINATION: The patient presented to be alert and oriented, pleasant, cooperative, intermittent eye contact. Mood described as good. Affect was reactive. Mood congruent. Thought process was coherent and goal directed. Thought content; the patient denied visual, auditory, tactile hallucinations. Denied paranoid ideation. The patient denied thoughts of harming herself or others, denied intents or plan. Insight and judgment are fair. Impulses are well controlled. IMPRESSION: Rule out mood disorder due to general medical condition, rule out adjustment disorder with depressed and anxious mood. For medical issues, please see notes for more detailed information. PLAN: This typewriter ribbon winder will sign off. The patient said that she does not feel depression. She does not want to go back to the psychiatric inpatient unit. The patient said that she will be moving in with her adoptive son. She feel comfortable to stay with him. The patient was seen by social science teacher. The patient posed no imminent danger to self or others. This typewriter ribbon winder will sign off. Should you have any questions, give me a call back. This typewriter ribbon winder will be off for the next week. Dr. Becerra takes over. Should you have any questions, give him a call back. Thank you very much. Beti Hackett MD
[2017-04-23 06:48] LABS: HEMATOCRIT 29.1 % (36.0-48.0); MEAN CELL VOLUME 90.9 fl (80.0-105.0); MEAN PLATELET VOLUME 8.6 fl (7.0-11.0); RED CELL DISTRIBUTION WIDTH 15.6 % (11.5-14.5); WHITE BLOOD COUNT 6.9 10^3/ul (4.5-11.0)
[2017-04-23 06:57] LABS: INR 2.16 (0.93-1.08)
[2017-04-23 07:11] LABS: CALCIUM 9.6 mg/dL (8.4-10.5); POTASSIUM 4.2 mmol/L (3.6-5.0)
[2017-04-23] MEDS: Insulin Reg-LOW-Coverage SC SCH ×4 (07:32→22:46)
[2017-04-23] MEDS: Albuterol 0.083% Inhal Sol (2.5 mg/3 mL) UD INH SCH ×3 (08:40→20:40)
--- NOTE | 2017-04-23 08:50 | CON ---
PULMONARY CONSULTATION DATE: 04/22/2017 REFERRING PHYSICIAN: Dr. Lebron. REASON FOR CONSULTATION: Chronic obstructive lung disease and sleep apnea syndrome, cardiomyopathy, coronary artery disease. HISTORY OF PRESENT ILLNESS: This is a 72-year-old female, well-known to me from admission in Psychiatry, was admitted with suicidal attempt and plan. Apparently, patient got up from the bed after lying for a number of hours to go to dining tejeda, while accompanied with a nurse, felt dizzy, and she came down and helped by nursing staff to lie in the floor. According to patient, she lost some consciousness at that time and was told her blood pressure was low. Presently, she is doing much better on Med-Surg floor. No headache, no rhinitis. Has mild cough. No sputum production. No nausea, vomiting, diarrhea. No leg pain or leg swelling. PAST MEDICAL HISTORY: Coronary artery disease with coronary stent, cardiomyopathy, near sleep apnea syndrome, chronic obstructive lung disease, diabetes, depression. SOCIAL HISTORY: Former smoker. Denied any alcohol use. FAMILY HISTORY: No significant cardiopulmonary disease reported. ALLERGIES: PLAVIX. MEDICATIONS: She is on albuterol/Atrovent nebulizer q. 8 hours, hydralazine 25 mg 3 times a day, aspirin 81 mg daily, Cardizem CD 180 mg daily, Claritin 10 mg daily, Colace 100 mg twice a day, Coreg 12.5 mg twice a day, Effient 10 mg daily, ferrous sulfate 325 mg daily, glipizide 5 mg daily, insulin coverage, potassium 20 mEq daily, digoxin 0.25 mg and Friday, Lasix 40 mg twice a day, Tradjenta 5 mg daily, Lipitor 20 mg daily, meropenem 1 g q. 12 hours, nitroglycerin p.r.n. basis, Pamelor 10 mg 3 times a day, Pepcid 40 mg daily, Singulair 10 mg daily, Tylenol p.r.n. basis, Zestril 20 mg daily, Zoloft 50 mg daily. REVIEW OF SYSTEMS: No headache, no rhinitis, no nausea, no vomiting, no diarrhea. No leg pain or leg swelling. Does have some cough and shortness of breath. PHYSICAL EXAMINATION: VITAL SIGNS: Temperature is 98, heart rate 70, respiratory rate is 20, blood pressure 110/58, and pulse ox 95% on room air. HEENT: Moist mucous membrane. Crowded airway. NECK: Supple. No JVD. HEART: S1 and S2. LUNGS: Have a fair airflow with a few rhonchi. ABDOMEN: Soft and nontender. No organomegaly. EXTREMITIES: There is no edema. NEUROLOGIC: Awake and alert. Follows simple commands. LABORATORY DATA: Shows hemoglobin 10.3, hematocrit 30.7, WBC 8.4, platelet is 302. Today's INR 3.59, sodium 136, potassium 3.8, chloride 100, bicarbonate 26, BUN 24, creatinine is 1.4, glucose 102, calcium 9.2, AST 34, ALT 33, alkaline phosphatase is 89. Troponin is 0.12, albumin 3.7. Has a CAT scan of the head done on her presentation with syncopal episode that shows it is unremarkable. IMPRESSION AND PLAN: Status post syncopal episode, could be orthostatic episode. Presently, she is asymptomatic, status post suicidal attempt and plan, chronic obstructive lung disease, may have sleep apnea syndrome, cardiomyopathy, coronary artery disease, history of coronary stent, atrial fibrillation, diabetes, depression, urinary tract infection. Pulmonary point of view, she is doing okay. I will continue bronchodilator, keep head at 45 degrees, close watch for orthostatic hypotension. We will restart her Bactrim for urinary tract infection. Thank you and we will follow with you. Rosina Gabriel MD
[2017-04-23] MEDS: diltiaZEM 180 mg/24 Hours CD Cap PO SCH (09:31)
[2017-04-23] MEDS: Digoxin 250 mcg (0.25 mg) Tab PO SCH (09:31)
[2017-04-23] MEDS: Potassium Chloride 20 mEq ER Tab PO SCH (09:31)
[2017-04-23] MEDS: Non Formulary Medication (Budesonide/Formoterol Fumarate [Symbicort 160-4.5 Mcg Inhaler] 2 IH SCH ×2 (09:32→17:01)
[2017-04-23] MEDS: Meropenem 500 MG in Sodium Chloride 0.9% 50 ML IVPB SCH ×2 (09:32→21:58)
[2017-04-23] MEDS: Non Formulary Medication (Linagliptin [Tradjenta] 5 MG) PO SCH (09:33)
--- NOTE | 2017-04-23 13:22 | PN ---
SUBJECTIVE: The patient is a 72-year-old female. The patient is seen and examined on the bedside, looks comfortable, seen by the home extension agent, psychiatrist and head teller. Patient developed chest pain with radiation and she was transferred from the Psych to ER after developing syncopal attack like episode. The patient had lightheadedness and nausea at that moment. Patient denied chest pain or shortness of breath during my interview today. Patient is found to have ESBL E. coli in the urine culture on meropenem, awaiting PPM interrogation. There is no nausea or vomiting today. No fever, no chills. PHYSICAL EXAMINATION: VITAL SIGNS: Temperature 98.1, pulse 74, respiratory rate is 19, blood pressure 110/50, pulse oximetry 95. HEENT: Head is normocephalic and atraumatic. Eyes, PERRLA. Extraocular muscles are intact. Conjunctivae are clear. Nose is patent. Mucous membranes are moist. NECK: Supple. No carotid bruits, JVD, or thyromegaly. CHEST: Bilaterally symmetrical. HEART: S1 and S2 positive. LUNGS: Clear to auscultation. ABDOMEN: Soft. Bowel sounds present. No organomegaly. EXTREMITIES: No edema, no cyanosis. NEUROLOGIC: The patient is awake and alert. Moving all 4 extremities. No focal deficits. MEDICATIONS: Tylenol, albuterol, aspirin, Lipitor, Coreg, digoxin, Cardizem, Colace, Pepcid, iron, Lasix, Glucotrol, hydralazine, meropenem, insulin, Zestril, Claritin, Singulair, Nitrostat, Tradjenta, nitro, nortriptyline, potassium and Effient. LABORATORY DATA: We do not have recent labs . INR 3.59, still holding Coumadin. Digoxin is 0.9. ASSESSMENT AND PLAN: Mr. Mallorie Francis is a 72-year-old lady with original admission for depression with suicidal attempt in Psych, had syncopal episode in the Psych and chest pain. Patient was found to have urinary tract infection with extended-spectrum beta-lactamase plus Escherichia coli. Relief Master is on the case. Patient is on contact isolation for extended-spectrum beta-lactamase plus Escherichia coli as per Dr. Cohn. Waiting for PPM interrogation; history of severe coronary artery disease, congestive heart failure, chronic obstructive pulmonary disease, asthma. Gastrointestinal and deep venous thrombosis prophylaxis. Repeat labs. We will follow. Tanisha Lebron MD [email or web address]
--- NOTE | 2017-04-23 14:37 | PN ---
DATE: 04/23/2017 SUBJECTIVE: The patient seen lying in bed on telemetry. She feels more comfortable today. She denies any chest pain at the present time. She has had no recurrent lightheadedness. Recent defibrillator interrogation showed no evidence of significant events over the past several days. OBJECTIVE: GENERAL: She is a middle-aged woman who appears comfortable at rest. VITAL SIGNS: Her blood pressure is 130/70 with pulse of 80 left ventricular pressure, respirations are 14. She is afebrile. HEENT: No JVD. CHEST: Few scattered rhonchi heard. HEART: PMI displaced laterally with soft tones noted. ABDOMEN: Soft, nontender, normoactive bowel sounds. EXTREMITIES: No edema. DIAGNOSTIC DATA: Potassium of 4.2 and BUN and creatinine are 15 and 1.1. White count is 6.9, hemoglobin and hematocrit are 9.6 and 29.1 with platelet count of 232,000. BMP [id number]. MEDICATIONS: Her current medications include albuterol inhaler, hydralazine 25 mg t.i.d., aspirin, Benadryl, Symbicort inhaler, diltiazem 180 mg daily, Claritin, Colace, carvedilol 12.5 mg b.i.d., Effient 10 mg daily, iron sulfate, Glucotrol, potassium, digoxin 0.25 mg every other day, Lasix 20 mg b.i.d., Tradjenta, Lipitor 20 mg daily, meropenem, Pamelor 10 mg t.i.d., Pepcid, Singulair 10 mg daily, and Zestril 20 mg daily. IMPRESSION: 1. Recent syncope, etiology unclear. 2. Recent exacerbation of depression and suicidal ideation. 3. Recurrent chest pain. 4. Coronary artery disease status post prior bypass surgery and multivessel percutaneous coronary intervention. 5. Severe left ventricular dysfunction. 6. Paroxysmal atrial fibrillation. 7. Rest of problems as noted. RECOMMENDATIONS: Current medications, we will continue for now. Warfarin will be resumed as well and close monitoring of her INR will be planned. We will continue to follow and make further recommendations as appropriate. Dwight Patiño MD
--- NOTE | 2017-04-23 17:01 | PN ---
DATE: 04/23/2017 PULMONARY PROGRESS NOTE REFERRING PHYSICIAN: Dr. Lebron. SUBJECTIVE: She is lying in the bed, having nebulizer treatment. Night was unremarkable. No more dizzy spells since admission. No headache. No rhinitis. Mild cough. No nausea, no vomiting, no diarrhea. No leg pain or leg swelling. Denies any suicidal ideation at present time. OBJECTIVE: GENERAL: In no acute distress. VITAL SIGNS: Temperature is 98, heart rate is 95, respiratory rate is 18, blood pressure 155/72, and pulse ox 96% on room air. HEENT: Moist mucous membranes. Crowded airway. NECK: Supple. No JVD. LUNGS: Has fair airflow with rhonchi. HEART: S1 and S2. ABDOMEN: Soft and nontender. No organomegaly. EXTREMITIES: There is no edema. NEUROLOGIC: Awake and alert. Follows simple commands. MEDICATIONS: She is on albuterol/Atrovent nebulizer q. 8 hours, hydralazine 25 mg 3 times a day, aspirin 81 mg daily, Benadryl 25 mg at bedtime p.r.n., Cardizem CD 180 mg daily, Claritin 10 mg daily, Colace 100 mg twice a day, Coreg 12.5 mg twice a day, Coumadin 4 mg given, Effient 10 mg daily, ferrous sulfate 324 mg daily, glipizide 5 mg daily, insulin coverage, potassium 20 mEq daily, digoxin 0.25 mg and Friday, Lasix 20 mg twice a day, Tradjenta 5 mg daily, Lipitor 20 mg daily, meropenem 500 mg q.12 hours, Nitrostat p.r.n. basis, Pamelor 10 mg 3 times a day, Pepcid 40 mg daily, Singulair 10 mg daily, Tylenol p.r.n. basis, Zestril 20 mg daily. LABORATORY DATA: Shows hemoglobin 9.6, hematocrit 29.1, WBC is 6.9, platelet count is 232. INR 2.16. Sodium 139, potassium 4.2, chloride 104, bicarbonate 27, BUN 15, creatinine 1.1, glucose 121, calcium 9.6. ProBNP 3,580. IMPRESSION: Status post syncopal episode, could be orthostatic hypotension. Presently asymptomatic, originally admitted to Psych for the suicidal attempt and suicidal plan. Presently, he is not suicidal. Chronic obstructive lung disease, may have sleep apnea syndrome, cardiomyopathy, coronary artery disease, history of coronary stent, atrial fibrillation, diabetes, depression, urinary tract infection. Pulmonary point of view, doing okay. Continue bronchodilator, antibiotics, gastric prophylaxis, fall precaution, being followed by Psychiatry. She was provided contact information for psychiatry as an outpatient provider by Dr. Bang. Thank you and we will follow with you. Rosina Gabriel MD
[2017-04-23] MEDS: Lidocaine 5% Patch TD SCH (17:47)
--- NOTE | 2017-04-23 23:50 | CP.PCM.PN ---
Subjective - Date & Time of Evaluation Date of Evaluation: 04/23/17 Time of Evaluation: 23:00 - Subjective Subjective: Infectious Disease Follow Up: April 23, 2017 72 yo female originally in psychiatry for depression. The patient developed chest pain with radiation. She was transferred to the ER after developing a syncopal like episode in psychiatric floor. The patient has lightheadedness, headache, and nausea. The patient denies chest pain or SOB at this time. The patient was found to have ESBL + E. Coli in the urine cultures here. On Meropenem now for treatment of UTI. Awaiting PPM interrogation... done - no significant events. Objective - Vital Signs/Intake and Output Vital Signs (last 24 hours): Temp Pulse Resp BP Pulse Ox 98.1 F 72 19 140/66 96 04/23/17 12:00 04/23/17 18:00 04/23/17 12:00 04/23/17 17:36 04/23/17 06:00 - Medications Medications: Current Medications Acetaminophen (Tylenol 325mg Tab) 650 mg PO Q6H PRN PRN Reason: Pain, Mild (1-3) Last Admin: 04/23/17 15:00 Dose: 650 mg Albuterol Sulfate (Albuterol 0.083% Inhal Misty (2.5 Mg/3 Ml) Ud) 2.5 mg INH TIDRESP [facility] Last Admin: 04/23/17 20:40 Dose: 2.5 mg Aspirin (Aspirin Chewable) 81 mg PO DAILY [facility] Last Admin: 04/23/17 09:30 Dose: 81 mg Atorvastatin Calcium (Lipitor) 20 mg PO DAILY [facility] Last Admin: 04/23/17 09:30 Dose: 20 mg Carvedilol (Coreg) 12.5 mg PO BID [facility] Last Admin: 04/23/17 17:36 Dose: 12.5 mg Digoxin (Lanoxin) 0.25 mg PO QOTHERDAY [facility] Last Admin: 04/23/17 09:31 Dose: 0.25 mg Diltiazem HCl (Cardizem Cd) 180 mg PO DAILY [facility] Last Admin: 04/23/17 09:31 Dose: 180 mg Diphenhydramine HCl (Benadryl) 25 mg PO HS PRN PRN Reason: Insomnia Last Admin: 04/23/17 22:06 Dose: 25 mg Docusate Sodium (Colace) 100 mg PO BID [facility] Last Admin: 04/23/17 17:35 Dose: 100 mg Famotidine (Pepcid) 40 mg PO DAILY [facility] Last Admin: 04/23/17 09:30 Dose: 40 mg Ferrous Sulfate (Feosol) 324 mg PO DAILY [facility] Last Admin: 04/23/17 09:30 Dose: 324 mg Furosemide (Lasix) 20 mg PO BID [facility] Last Admin: 04/23/17 17:36 Dose: 20 mg Glipizide (Glucotrol) 5 mg PO DAILY [facility] Last Admin: 04/23/17 09:30 Dose: 5 mg Hydralazine HCl (Apresoline) 25 mg PO TID [facility] Last Admin: 04/23/17 17:36 Dose: 25 mg Meropenem 500 mg/ Sodium (Chloride) 50 mls @ 100 mls/hr IVPB Q12 [facility] PRN Reason: Protocol Last Admin: 04/23/17 21:58 Dose: 100 mls/hr Insulin Human Regular (Humulin R Low) 0 units SC ACHS [facility] PRN Reason: Protocol Last Admin: 04/23/17 18:18 Dose: Not Given Lidocaine (Lidoderm) 1 ea TD DAILY [facility] Last Admin: 04/23/17 17:47 Dose: 1 ea Lisinopril (Zestril) 20 mg PO DAILY [facility] Last Admin: 04/23/17 09:30 Dose: 20 mg Loratadine (Claritin) 10 mg PO DAILY [facility] Last Admin: 04/23/17 09:31 Dose: 10 mg Montelukast Sodium (Singulair) 10 mg PO DAILY [facility] Last Admin: 04/23/17 09:30 Dose: 10 mg Nitroglycerin (Nitrostat Sl Tab) 0.4 mg SL Q5M PRN PRN Reason: chest pain Non-Formulary Medication (Budesonide/Formoterol Fumarate [Symbicort 160-4.5 Mcg Inhaler]) 2 puff IH BID [facility] Last Admin: 04/23/17 17:01 Dose: Not Given Non-Formulary Medication (Linagliptin [Tradjenta]) 5 mg PO DAILY [facility] Last Admin: 04/23/17 09:33 Dose: Not Given Nortriptyline HCl (Pamelor) 10 mg PO TID [facility] Last Admin: 04/23/17 17:35 Dose: 10 mg Potassium Chloride (K-Dur 20 Meq Er Tab) 20 meq PO BRK [facility] Last Admin: 04/23/17 09:31 Dose: 20 meq Prasugrel (Effient) 10 mg PO DAILY [facility] Last Admin: 04/23/17 09:30 Dose: 10 mg Warfarin Sodium (Coumadin) 4 mg PO 1800 [facility] PRN Reason: Protocol Last Admin: 04/23/17 17:35 Dose: 4 mg - Labs Labs: 04/23/17 06:15 04/23/17 06:15 PT 24.1 SECONDS (9.4-12.5) H 04/23/17 06:15 INR 2.16 (0.93-1.08) H 04/23/17 06:15 APTT 45.1 Seconds (25.1-36.5) H 04/21/17 13:39 - Constitutional Appears: Non-toxic, No Acute Distress, Chronically Ill - Head Exam Head Exam: ATRAUMATIC, NORMOCEPHALIC - Eye Exam Eye Exam: EOMI, PERRL Pupil Exam: NORMAL ACCOMODATION, PERRL - ENT Exam ENT Exam: Mucous Membranes Moist, Normal External Ear Exam, TM's Normal Bilaterally - Neck Exam Neck Exam: Full ROM, Normal Inspection - Respiratory Exam Respiratory Exam: Clear to Ausculation Bilateral, NORMAL BREATHING PATTERN. absent: Rales, Rhonchi, Wheezes - Cardiovascular Exam Cardiovascular Exam: REGULAR RHYTHM, RRR, +S1, +S2 - GI/Abdominal Exam GI & Abdominal Exam: Soft, Normal Bowel Sounds. absent: Distended, Tenderness - Extremities Exam Extremities Exam: Full ROM, Normal Inspection - Neurological Exam Neurological Exam: Alert, Awake, Normal Gait, Oriented x3 - Psychiatric Exam Psychiatric exam: Normal Affect, Normal Mood - Skin Skin Exam: Intact, Normal Color Assessment and Plan - Assessment and Plan (Free Text) Assessment: 72 yo female with original admission for depression with syncopal episode in psychiatry. Patient was also found to have a UTI with ESBL + E. Coli. Will start Meropenem for antibiotic treatment at this time. Supportive care. Undergoing heart evaluation. Patient does have renal insufficiency so antibiotic dosing has been reduced accordingly. Placed on contact isolation for the ESBL+ E. Coli. Syncopal episode on the psychiatric floor. PPM interrogation showed no significant events. Patient states that she is feeling better now. Thank you for allowing me to participate in the care of the patient, we will follow with you.
--- NOTE | 2017-04-24 02:07 | PN ---
SUBJECTIVE: The patient is a 72 years old female. The patient was seen and examined at the bedside, looking comfortable, complaining about back pain. No nausea, vomiting, or diarrhea. No hematuria or hematochezia. No swelling of the legs. No chest pain, no palpitation. Dizziness is getting better. No fever, no chills. No rhinitis. Denies any suicidal or homicidal ideation at present. PHYSICAL EXAMINATION: VITAL SIGNS: Temperature 98, heart rate 95, respiratory rate 18, blood pressure 155/72 and pulse oximetry 96% on room air. HEENT: Head normocephalic, atraumatic. Eyes, PERRLA. Extraocular muscles are intact. Conjunctivae clear. Nose patent. Mucous membrane is moist. NECK: Supple. No carotid bruits. No JVD or thyromegaly. CHEST: Bilaterally symmetric. HEART: S1 and S2 positive. LUNGS: Clear to auscultation. ABDOMEN: Soft. Bowel sounds present. No organomegaly. EXTREMITIES: No edema. No cyanosis. NEUROLOGICAL: The patient is awake and alert. Moving all 4 extremities. No focal deficit. MEDICATIONS: Albuterol, hydralazine, Benadryl, Cardizem, Claritin, Colace, Coreg, Coumadin, Effient, ferrous sulfate, glipizide, insulin, potassium, digoxin, Lasix, Tradjenta, Lipitor, meropenem, Pepcid, Singulair, Tylenol and Zestril. LABORATORY DATA: Hemoglobin 9.6, hematocrit 29.1, white blood cells 6.9 and platelets 232. INR 2.16. Sodium 139, potassium 4.2, BUN 15 and creatinine 1.1. ASSESSMENT AND PLAN: Ms. Tito Nobles is status post syncopal attack, it could be orthostatic hypotension, presently asymptomatic, admitted to Psych for suicidal attempt and plan. Right now, no suicidal or homicidal ideation. Cleared by the psychiatrist. History of chronic obstructive lung disease, sleep apnea syndrome, cardiomyopathy, coronary artery disease, cardiac stenting, atrial fibrillation, diabetes, depression, urinary tract infection. Continue bronchodilators, antibiotics, gastric prophylaxis. Being followed by Psychiatry, continue present treatment. Gastrointestinal and deep venous thrombosis prophylaxis. We will follow up. Tanisha Lebron MD [facility] # [id number]
[2017-04-24 06:25] LABS: INR 1.66 (0.93-1.08)
[2017-04-24] MEDS: Albuterol 0.083% Inhal Sol (2.5 mg/3 mL) UD INH SCH ×3 (07:39→19:50)
[2017-04-24] MEDS: Insulin Reg-LOW-Coverage SC SCH ×4 (08:37→23:22)
[2017-04-24] MEDS: Potassium Chloride 20 mEq ER Tab PO SCH (08:39)
--- NOTE | 2017-04-24 08:45 | CP.PCM.PN ---
Subjective - Date & Time of Evaluation Date of Evaluation: 04/24/17 Time of Evaluation: 07:00 - Subjective Subjective: She feels well this AM. No CP, SOB, Syncope. ICD check was OK. V/S noted V. Paced PE: Lungs: clear Cor.: S1S2, sys. murmur Abd.: soft Ext.; no edema Neuro.: alert Labs noted: NR= 1.66 ECG 04/21: V. Paced CT head: NL. Objective - Vital Signs/Intake and Output Vital Signs (last 24 hours): Temp Pulse Resp BP Pulse Ox 98.7 F 74 20 139/66 97 04/24/17 06:00 04/24/17 06:00 04/24/17 06:00 04/24/17 06:00 04/24/17 06:00 Intake and Output: 04/24/17 04/24/17 06:59 18:59 Intake Total 300 Balance 300 - Medications Medications: Current Medications Acetaminophen (Tylenol 325mg Tab) 650 mg PO Q6H PRN PRN Reason: Pain, Mild (1-3) Last Admin: 04/24/17 01:01 Dose: 650 mg Albuterol Sulfate (Albuterol 0.083% Inhal Misty (2.5 Mg/3 Ml) Ud) 2.5 mg INH TIDRESP [facility] Last Admin: 04/24/17 07:39 Dose: 2.5 mg Aspirin (Aspirin Chewable) 81 mg PO DAILY [facility] Last Admin: 04/23/17 09:30 Dose: 81 mg Atorvastatin Calcium (Lipitor) 20 mg PO DAILY [facility] Last Admin: 04/23/17 09:30 Dose: 20 mg Carvedilol (Coreg) 12.5 mg PO BID [facility] Last Admin: 04/23/17 17:36 Dose: 12.5 mg Digoxin (Lanoxin) 0.25 mg PO QOTHERDAY [facility] Last Admin: 04/23/17 09:31 Dose: 0.25 mg Diltiazem HCl (Cardizem Cd) 180 mg PO DAILY [facility] Last Admin: 04/23/17 09:31 Dose: 180 mg Diphenhydramine HCl (Benadryl) 25 mg PO HS PRN PRN Reason: Insomnia Last Admin: 04/23/17 22:06 Dose: 25 mg Docusate Sodium (Colace) 100 mg PO BID [facility] Last Admin: 04/23/17 17:35 Dose: 100 mg Famotidine (Pepcid) 40 mg PO DAILY [facility] Last Admin: 04/23/17 09:30 Dose: 40 mg Ferrous Sulfate (Feosol) 324 mg PO DAILY [facility] Last Admin: 04/23/17 09:30 Dose: 324 mg Furosemide (Lasix) 20 mg PO BID [facility] Last Admin: 04/23/17 17:36 Dose: 20 mg Glipizide (Glucotrol) 5 mg PO DAILY [facility] Last Admin: 04/23/17 09:30 Dose: 5 mg Hydralazine HCl (Apresoline) 25 mg PO TID [facility] Last Admin: 04/23/17 17:36 Dose: 25 mg Meropenem 500 mg/ Sodium (Chloride) 50 mls @ 100 mls/hr IVPB Q12 [facility] PRN Reason: Protocol Last Admin: 04/23/17 21:58 Dose: 100 mls/hr Insulin Human Regular (Humulin R Low) 0 units SC ACHS [facility] PRN Reason: Protocol Last Admin: 04/24/17 08:37 Dose: Not Given Lidocaine (Lidoderm) 1 ea TD DAILY [facility] Last Admin: 04/23/17 17:47 Dose: 1 ea Lisinopril (Zestril) 20 mg PO DAILY [facility] Last Admin: 04/23/17 09:30 Dose: 20 mg Loratadine (Claritin) 10 mg PO DAILY [facility] Last Admin: 04/23/17 09:31 Dose: 10 mg Montelukast Sodium (Singulair) 10 mg PO DAILY [facility] Last Admin: 04/23/17 09:30 Dose: 10 mg Nitroglycerin (Nitrostat Sl Tab) 0.4 mg SL Q5M PRN PRN Reason: chest pain Non-Formulary Medication (Budesonide/Formoterol Fumarate [Symbicort 160-4.5 Mcg Inhaler]) 2 puff IH BID [facility] Last Admin: 04/23/17 17:01 Dose: Not Given Non-Formulary Medication (Linagliptin [Tradjenta]) 5 mg PO DAILY [facility] Last Admin: 04/23/17 09:33 Dose: Not Given Nortriptyline HCl (Pamelor) 10 mg PO TID [facility] Last Admin: 04/23/17 17:35 Dose: 10 mg Potassium Chloride (K-Dur 20 Meq Er Tab) 20 meq PO BRK [facility] Last Admin: 04/24/17 08:39 Dose: 20 meq Prasugrel (Effient) 10 mg PO DAILY [facility] Last Admin: 04/23/17 09:30 Dose: 10 mg Warfarin Sodium (Coumadin) 4 mg PO 1800 [facility] PRN Reason: Protocol Last Admin: 04/23/17 17:35 Dose: 4 mg - Labs Labs: 04/23/17 06:15 04/23/17 06:15 PT 18.5 SECONDS (9.4-12.5) H 04/24/17 06:00 INR 1.66 (0.93-1.08) H 04/24/17 06:00 APTT 45.1 Seconds (25.1-36.5) H 04/21/17 13:39 Assessment and Plan - Assessment and Plan (Free Text) Assessment: Syncope while on psych unit for depression and suicidal ideation. Homeless State Coagulopathy CP episode while on psych, mild + trops CAD/CABG/TN/PCI/Severe LVD ICD NSVT PAF HBP Diabetes HLD COPD CVD Colon Resection/Ieostomy Chronic Pain Insomnia Plan: Continue Tel INR in AM daily until stable Continue other cardiac meds. OOB to chair as lou./PT Psych F/U Nu[employer] Operator Assistance: Severe Social Issues. Please speak with her sister.
--- NOTE | 2017-04-24 10:20 | CP.PCM.PN ---
Subjective - Date & Time of Evaluation Date of Evaluation: 04/24/17 Time of Evaluation: 10:00 - Subjective Subjective: Infectious Disease Follow Up: April 24, 2017 72 yo female originally in psychiatry for depression. The patient developed chest pain with radiation. She was transferred to the ER after developing a syncopal like episode in psychiatric floor. The patient has lightheadedness, headache, and nausea. The patient denies chest pain or SOB at this time. The patient was found to have ESBL + E. Coli in the urine cultures here. On Meropenem now for treatment of UTI. Awaiting PPM interrogation... done - no significant events. Repeat urine culture taken - results pending. Patient making no significant complaints at this time and appears comfortable. Objective - Vital Signs/Intake and Output Vital Signs (last 24 hours): Temp Pulse Resp BP Pulse Ox 98.7 F 74 20 139/66 97 04/24/17 06:00 04/24/17 06:00 04/24/17 06:00 04/24/17 06:00 04/24/17 06:00 Intake and Output: 04/24/17 04/24/17 06:59 18:59 Intake Total 300 Balance 300 - Medications Medications: Current Medications Acetaminophen (Tylenol 325mg Tab) 650 mg PO Q6H PRN PRN Reason: Pain, Mild (1-3) Last Admin: 04/24/17 01:01 Dose: 650 mg Albuterol Sulfate (Albuterol 0.083% Inhal Misty (2.5 Mg/3 Ml) Ud) 2.5 mg INH TIDRESP [facility] Last Admin: 04/24/17 07:39 Dose: 2.5 mg Aspirin (Aspirin Chewable) 81 mg PO DAILY [facility] Last Admin: 04/23/17 09:30 Dose: 81 mg Atorvastatin Calcium (Lipitor) 20 mg PO DAILY [facility] Last Admin: 04/23/17 09:30 Dose: 20 mg Carvedilol (Coreg) 12.5 mg PO BID [facility] Last Admin: 04/23/17 17:36 Dose: 12.5 mg Digoxin (Lanoxin) 0.25 mg PO QOTHERDAY [facility] Last Admin: 04/23/17 09:31 Dose: 0.25 mg Diltiazem HCl (Cardizem Cd) 180 mg PO DAILY [facility] Last Admin: 04/23/17 09:31 Dose: 180 mg Diphenhydramine HCl (Benadryl) 25 mg PO HS PRN PRN Reason: Insomnia Last Admin: 04/23/17 22:06 Dose: 25 mg Docusate Sodium (Colace) 100 mg PO BID [facility] Last Admin: 04/23/17 17:35 Dose: 100 mg Famotidine (Pepcid) 40 mg PO DAILY [facility] Last Admin: 04/23/17 09:30 Dose: 40 mg Ferrous Sulfate (Feosol) 324 mg PO DAILY [facility] Last Admin: 04/23/17 09:30 Dose: 324 mg Furosemide (Lasix) 20 mg PO BID [facility] Last Admin: 04/23/17 17:36 Dose: 20 mg Glipizide (Glucotrol) 5 mg PO DAILY [facility] Last Admin: 04/23/17 09:30 Dose: 5 mg Hydralazine HCl (Apresoline) 25 mg PO TID [facility] Last Admin: 04/23/17 17:36 Dose: 25 mg Meropenem 500 mg/ Sodium (Chloride) 50 mls @ 100 mls/hr IVPB Q12 [facility] PRN Reason: Protocol Last Admin: 04/23/17 21:58 Dose: 100 mls/hr Insulin Human Regular (Humulin R Low) 0 units SC ACHS [facility] PRN Reason: Protocol Last Admin: 04/24/17 08:37 Dose: Not Given Lidocaine (Lidoderm) 1 ea TD DAILY [facility] Last Admin: 04/23/17 17:47 Dose: 1 ea Lisinopril (Zestril) 20 mg PO DAILY [facility] Last Admin: 04/23/17 09:30 Dose: 20 mg Loratadine (Claritin) 10 mg PO DAILY [facility] Last Admin: 04/23/17 09:31 Dose: 10 mg Montelukast Sodium (Singulair) 10 mg PO DAILY [facility] Last Admin: 04/23/17 09:30 Dose: 10 mg Nitroglycerin (Nitrostat Sl Tab) 0.4 mg SL Q5M PRN PRN Reason: chest pain Non-Formulary Medication (Budesonide/Formoterol Fumarate [Symbicort 160-4.5 Mcg Inhaler]) 2 puff IH BID [facility] Last Admin: 04/23/17 17:01 Dose: Not Given Non-Formulary Medication (Linagliptin [Tradjenta]) 5 mg PO DAILY [facility] Last Admin: 04/23/17 09:33 Dose: Not Given Nortriptyline HCl (Pamelor) 10 mg PO TID [facility] Last Admin: 04/23/17 17:35 Dose: 10 mg Potassium Chloride (K-Dur 20 Meq Er Tab) 20 meq PO BRK [facility] Last Admin: 04/24/17 08:39 Dose: 20 meq Prasugrel (Effient) 10 mg PO DAILY [facility] Last Admin: 04/23/17 09:30 Dose: 10 mg Warfarin Sodium (Coumadin) 4 mg PO 1800 [facility] PRN Reason: Protocol Last Admin: 04/23/17 17:35 Dose: 4 mg - Labs Labs: 04/23/17 06:15 04/23/17 06:15 PT 18.5 SECONDS (9.4-12.5) H 04/24/17 06:00 INR 1.66 (0.93-1.08) H 04/24/17 06:00 APTT 45.1 Seconds (25.1-36.5) H 04/21/17 13:39 - Constitutional Appears: Non-toxic, No Acute Distress, Chronically Ill - Head Exam Head Exam: ATRAUMATIC, NORMOCEPHALIC - Eye Exam Eye Exam: EOMI, PERRL Pupil Exam: NORMAL ACCOMODATION, PERRL - ENT Exam ENT Exam: Mucous Membranes Moist, Normal External Ear Exam, TM's Normal Bilaterally - Neck Exam Neck Exam: Full ROM, Normal Inspection - Respiratory Exam Respiratory Exam: Clear to Ausculation Bilateral, NORMAL BREATHING PATTERN. absent: Rales, Rhonchi, Wheezes - Cardiovascular Exam Cardiovascular Exam: REGULAR RHYTHM, RRR, +S1, +S2 - GI/Abdominal Exam GI & Abdominal Exam: Soft, Normal Bowel Sounds. absent: Distended, Tenderness - Extremities Exam Extremities Exam: Full ROM, Normal Inspection - Neurological Exam Neurological Exam: Alert, Awake, CN II-XII Intact, Oriented x3 - Psychiatric Exam Psychiatric exam: Normal Affect, Normal Mood - Skin Skin Exam: Intact, Normal Color Assessment and Plan - Assessment and Plan (Free Text) Assessment: 72 yo female with original admission for depression with syncopal episode in psychiatry. Patient was also found to have a UTI with ESBL + E. Coli. Continue Meropenem for antibiotic treatment of UTI at this time. Supportive care. Undergoing heart evaluation. Patient does have renal insufficiency so antibiotic dosing has been reduced accordingly. On contact isolation for the ESBL+ E. Coli. Syncopal episode on the psychiatric floor. PPM interrogation showed no significant events. Patient states that she is feeling better now. Repeat urine cultures taken. Plan for total of 5-7 days of IV Meropenem at this point. She is on Day 3 of meropenem (Day starts on the evening dose of Meropenem). Thank you for allowing me to participate in the care of the patient, we will follow with you.
[2017-04-24] MEDS: diltiaZEM 180 mg/24 Hours CD Cap PO SCH (10:29)
[2017-04-24] MEDS: Lidocaine 5% Patch TD SCH (10:31)
[2017-04-24] MEDS: Non Formulary Medication (Linagliptin [Tradjenta] 5 MG) PO SCH (10:33)
[2017-04-24] MEDS: Non Formulary Medication (Budesonide/Formoterol Fumarate [Symbicort 160-4.5 Mcg Inhaler] 2 IH SCH ×2 (10:34→17:29)
[2017-04-24] MEDS: Meropenem 500 MG in Sodium Chloride 0.9% 50 ML IVPB SCH ×2 (12:39→22:22)
--- NOTE | 2017-04-24 14:44 | PN ---
DATE: SUBJECTIVE: The patient seen and examined on the bedside, looking comfortable. No nausea, vomiting or diarrhea. No hematuria or hematochezia. No swelling of the legs. No chest pain. No palpitations. Back pain is better. Shortness of breath is better. Chest pain is better. No fevers. No chills. PHYSICAL EXAMINATION VITAL SIGNS: Temperature 98, pulse 88, blood pressure 113/69, respiratory rate 22. HEENT: Head is normocephalic, atraumatic. Eyes; PERRLA. Extraocular movements are intact. Conjunctiva clear. Nose is patent. Mucous membrane moist. NECK: Supple. No carotid bruits. No JVD or thyromegaly. CHEST: Bilaterally symmetrical. HEART: S1 and S2 positive. LUNGS: Clear to auscultation. ABDOMEN: Soft. Bowel sound present. No organomegaly. EXTREMITIES: No edema. No cyanosis. NEUROLOGIC: The patient is awake and alert. Moving all 4 extremities. No focal deficit. MEDICATION: Hydralazine, aspirin, Benadryl, Cardizem, Claritin, Colace, Coreg, Coumadin, Effient, iron, glipizide, insulin, K-Dur, digoxin, Lasix, Lidoderm, Lipitor, and Pepcid. LABORATORY DATA: White blood cell 6.9, hemoglobin 9.6, hematocrit 29.1, platelet 232. Glucose 123, 234, 116, 102. INR 1.66. D-dimer 492. ASSESSMENT AND PLAN: Ms. Mallorie Turner is a 72-year-old female with multiple medical problems with history of depression was on the psych floor for suicidal ideation and attempt, had a syncopal episode in the Psychiatry, found that the patient has urinary tract infection with extended spectrum beta-lactamase plus Escherichia coli. Continue meropenem for antibiotic treatment of urinary tract infection at this time as per Dr. Ariel Cohn Infectious Disease. The patient has had renal insufficiency, so antibiotic dosing has been reduced accordingly. Patient is on contact isolation for ESBL and E. coli. interrogation showed no significant event. According to the patient, she is feeling better, history of back pain, Lidoderm patch given. She is feeling better with Lidoderm patch. Plan is for 5-7 days of IV meropenem at this point, today is day #3. The patient has history of coronary artery disease, chronic obstructive pulmonary disease, asthma, may be the patient is orthostatic at the time of syncopal attack, sleep apnea syndrome, cardiomyopathy, and diabetes mellitus. Continue bronchodilators, gastric and deep vein thrombosis prophylaxis, and repeat labs. We will follow up. Tanisha Lebron MD [email or web address]
--- NOTE | 2017-04-25 03:40 | PN ---
DATE: 04/24/2017 PULMONARY PROGRESS NOTE REFERRING PHYSICIAN: Dr. Lebron. SUBJECTIVE: The patient is sitting up in a chair. Night was unremarkable. Feels better. Mild cough. No sputum production. No nausea, vomiting, diarrhea. No leg pain or leg swelling. OBJECTIVE: GENERAL: In no acute distress. VITAL SIGNS: Temperature 98, heart rate 70, respiratory rate is 20, blood pressure 124/58, pulse ox 97% on room air. HEENT: Moist mucous membranes. Crowded airway. NECK: Supple. No JVD. LUNGS: Has a fair airflow with few rhonchi. HEART: S1 and S2. ABDOMEN: Soft and nontender. No organomegaly. EXTREMITIES: No edema. NEUROLOGIC: Alert, awake, follow simple commands. MEDICATIONS: She is on DuoNeb q. 8 hours, hydralazine 25 mg 3 times a day, aspirin 81 mg daily, Benadryl 25 mg at bedtime p.r.n., Cardizem CD 180 mg daily, Claritin 10 mg daily, Colace 100 mg twice a day, Coreg 12.5 mg twice a day, Coumadin 4 mg daily, Effient 10 mg daily, ferrous sulfate 324 mg daily, glipizide 5 mg daily, insulin coverage, potassium 20 mEq daily, digoxin 0.25 mg on and Friday, Lasix 20 mg twice a day, Lidoderm patch to the affected area, Tradjenta 5 mg daily, Lipitor 20 mg daily, meropenem 500 mg q. 12 hours, nitroglycerin p.r.n. basis, nortriptyline 10 mg 3 times a day, Pepcid 40 mg daily, Singulair 10 mg daily, Tylenol p.r.n. basis and Zestril 20 mg daily. LABORATORY DATA: Shows INR 1.6. Glucose is 100. Repeat urine cultures so far from yesterday, there is no growth. IMPRESSION AND PLAN: Status post syncopal episode, could be orthostatic hypotension. Recently, had suicidal ideation and tried to attempt it and had a plan, but presently, she is not suicidal. Has chronic obstructive lung disease, sleep apnea syndrome, cardiomyopathy, coronary artery disease, history of coronary stent, atrial fibrillation, diabetes, depression and urinary tract infection. From a pulmonary point of view, doing okay. Keep head at 45 degree. She refused to use CPAP/BiPAP, may restart anticoagulation, fall precaution, outpatient psychiatry followup. Thank you and we will follow with you. Rosina Gabriel MD
[2017-04-25] MEDS: Albuterol 0.083% Inhal Sol (2.5 mg/3 mL) UD INH SCH ×3 (07:37→19:35)
[2017-04-25] MEDS: Insulin Reg-LOW-Coverage SC SCH ×3 (08:05→17:39)
[2017-04-25] MEDS: Potassium Chloride 20 mEq ER Tab PO SCH (08:06)
[2017-04-25] MEDS: Lidocaine 5% Patch TD SCH (09:22)
[2017-04-25] MEDS: diltiaZEM 180 mg/24 Hours CD Cap PO SCH (09:24)
--- NOTE | 2017-04-25 09:25 | CP.PCM.PN ---
Subjective - Date & Time of Evaluation Date of Evaluation: 04/25/17 Time of Evaluation: 07:00 - Subjective Subjective: She feels well this AM. No CP, SOB, Syncope. V/S noted V. Paced PE: Lungs: clear Cor.: S1S2, sys. murmur Abd.: soft Ext.; no edema Neuro.: alert Labs noted: INR= 1.66 ECG 04/21: V. Paced CT head: NL. Objective - Vital Signs/Intake and Output Vital Signs (last 24 hours): Temp Pulse Resp BP Pulse Ox 97.9 F 69 20 132/57 L 95 04/25/17 06:00 04/25/17 06:00 04/25/17 06:00 04/25/17 06:00 04/25/17 06:00 Intake and Output: 04/25/17 04/25/17 06:59 18:59 Intake Total 100 720 Output Total 300 Balance 100 420 - Medications Medications: Current Medications Acetaminophen (Tylenol 325mg Tab) 650 mg PO Q6H PRN PRN Reason: Pain, Mild (1-3) Last Admin: 04/25/17 01:08 Dose: 650 mg Albuterol Sulfate (Albuterol 0.083% Inhal Misty (2.5 Mg/3 Ml) Ud) 2.5 mg INH TIDRESP [facility] Last Admin: 04/25/17 07:37 Dose: 2.5 mg Aspirin (Aspirin Chewable) 81 mg PO DAILY [facility] Last Admin: 04/24/17 10:29 Dose: 81 mg Atorvastatin Calcium (Lipitor) 20 mg PO DAILY [facility] Last Admin: 04/24/17 10:30 Dose: 20 mg Carvedilol (Coreg) 12.5 mg PO BID [facility] Last Admin: 04/24/17 17:29 Dose: 12.5 mg Digoxin (Lanoxin) 0.25 mg PO QOTHERDAY [facility] Last Admin: 04/23/17 09:31 Dose: 0.25 mg Diltiazem HCl (Cardizem Cd) 180 mg PO DAILY [facility] Last Admin: 04/24/17 10:29 Dose: 180 mg Diphenhydramine HCl (Benadryl) 25 mg PO HS PRN PRN Reason: Insomnia Last Admin: 04/24/17 23:02 Dose: 25 mg Docusate Sodium (Colace) 100 mg PO BID [facility] Last Admin: 04/24/17 17:29 Dose: 100 mg Famotidine (Pepcid) 40 mg PO DAILY [facility] Last Admin: 04/24/17 10:31 Dose: 40 mg Ferrous Sulfate (Feosol) 324 mg PO DAILY [facility] Last Admin: 04/24/17 10:30 Dose: 324 mg Furosemide (Lasix) 20 mg PO BID [facility] Last Admin: 04/24/17 17:28 Dose: 20 mg Glipizide (Glucotrol) 5 mg PO DAILY [facility] Last Admin: 04/24/17 10:31 Dose: 5 mg Hydralazine HCl (Apresoline) 25 mg PO TID [facility] Last Admin: 04/24/17 17:28 Dose: 25 mg Meropenem 500 mg/ Sodium (Chloride) 50 mls @ 100 mls/hr IVPB Q12 [facility] PRN Reason: Protocol Last Admin: 04/24/17 22:22 Dose: 100 mls/hr Insulin Human Regular (Humulin R Low) 0 units SC ACHS [facility] PRN Reason: Protocol Last Admin: 04/25/17 08:05 Dose: Not Given Lidocaine (Lidoderm) 1 ea TD DAILY [facility] Last Admin: 04/24/17 10:31 Dose: 1 ea Lisinopril (Zestril) 20 mg PO DAILY [facility] Last Admin: 04/24/17 10:29 Dose: 20 mg Loratadine (Claritin) 10 mg PO DAILY [facility] Last Admin: 04/24/17 10:31 Dose: 10 mg Montelukast Sodium (Singulair) 10 mg PO DAILY [facility] Last Admin: 04/24/17 10:31 Dose: 10 mg Nitroglycerin (Nitrostat Sl Tab) 0.4 mg SL Q5M PRN PRN Reason: chest pain Last Admin: 04/25/17 09:08 Dose: 0.4 mg Non-Formulary Medication (Budesonide/Formoterol Fumarate [Symbicort 160-4.5 Mcg Inhaler]) 2 puff IH BID [facility] Last Admin: 04/24/17 17:29 Dose: Not Given Non-Formulary Medication (Linagliptin [Tradjenta]) 5 mg PO DAILY [facility] Last Admin: 04/24/17 10:33 Dose: Not Given Nortriptyline HCl (Pamelor) 10 mg PO TID [facility] Last Admin: 04/24/17 17:31 Dose: 10 mg Potassium Chloride (K-Dur 20 Meq Er Tab) 20 meq PO BRK [facility] Last Admin: 04/25/17 08:06 Dose: 20 meq Prasugrel (Effient) 10 mg PO DAILY [facility] Last Admin: 04/24/17 10:30 Dose: 10 mg Warfarin Sodium (Coumadin) 4 mg PO 1800 [facility] PRN Reason: Protocol Last Admin: 04/24/17 17:28 Dose: 4 mg - Labs Labs: 04/23/17 06:15 04/23/17 06:15 PT 18.5 SECONDS (9.4-12.5) H 04/24/17 06:00 INR 1.66 (0.93-1.08) H 04/24/17 06:00 APTT 45.1 Seconds (25.1-36.5) H 04/21/17 13:39 Assessment and Plan - Assessment and Plan (Free Text) Assessment: Syncope while on psych unit for depression and suicidal ideation. Homeless State CP episode while on psych, mild + trops CAD/CABG/[place]/PCI/Severe LVD UTI ICD, no events on recent interrogation NSVT PAF HBP Diabetes HLD COPD CVD Colon Resection/Ieostomy Chronic Pain Insomnia Plan: INR in AM daily until stable Continue other cardiac meds. OOB to chair as lou./PT Psych F/U As per Janine, GUS, Psych., Block Hand, Dr. Lebron Block Hand Assistance: Severe Social Issues. Please speak with her sister.
[2017-04-25] MEDS: Non Formulary Medication (Linagliptin [Tradjenta] 5 MG) PO SCH (09:27)
[2017-04-25] MEDS: Non Formulary Medication (Budesonide/Formoterol Fumarate [Symbicort 160-4.5 Mcg Inhaler] 2 IH SCH ×2 (09:28→17:38)
[2017-04-25] MEDS: Meropenem 500 MG in Sodium Chloride 0.9% 50 ML IVPB SCH ×2 (09:29→21:41)
[2017-04-25] MEDS: Digoxin 250 mcg (0.25 mg) Tab PO SCH (09:44)
--- NOTE | 2017-04-25 16:56 | CP.PCM.PN ---
Subjective - Date & Time of Evaluation Date of Evaluation: 04/25/17 Time of Evaluation: 16:00 - Subjective Subjective: Infectious Disease Follow Up: April 25, 2017 72 yo female originally in psychiatry for depression. The patient developed chest pain with radiation. She was transferred to the ER after developing a syncopal like episode in psychiatric floor. The patient has lightheadedness, headache, and nausea. The patient denies chest pain or SOB at this time. The patient was found to have ESBL + E. Coli in the urine cultures here. On Meropenem now for treatment of UTI. Awaiting PPM interrogation... done - no significant events. Repeat urine culture taken - results showing no growth. Patient making no significant complaints at this time and appears comfortable. Objective - Vital Signs/Intake and Output Vital Signs (last 24 hours): Temp Pulse Resp BP Pulse Ox 98.1 F 71 16 115/50 L 97 04/25/17 11:37 04/25/17 14:00 04/25/17 11:37 04/25/17 13:43 04/25/17 09:00 Intake and Output: 04/25/17 04/25/17 06:59 18:59 Intake Total 100 960 Output Total 900 Balance 100 60 - Medications Medications: Current Medications Acetaminophen (Tylenol 325mg Tab) 650 mg PO Q6H PRN PRN Reason: Pain, Mild (1-3) Last Admin: 04/25/17 13:43 Dose: 650 mg Albuterol Sulfate (Albuterol 0.083% Inhal Misty (2.5 Mg/3 Ml) Ud) 2.5 mg INH TIDRESP [facility] Last Admin: 04/25/17 14:03 Dose: 2.5 mg Aspirin (Aspirin Chewable) 81 mg PO DAILY [facility] Last Admin: 04/25/17 09:25 Dose: 81 mg Atorvastatin Calcium (Lipitor) 20 mg PO DAILY [facility] Last Admin: 04/25/17 09:26 Dose: 20 mg Carvedilol (Coreg) 12.5 mg PO BID [facility] Last Admin: 04/25/17 09:25 Dose: 12.5 mg Digoxin (Lanoxin) 0.25 mg PO QOTHERDAY [facility] Last Admin: 04/25/17 09:44 Dose: 0.25 mg Diltiazem HCl (Cardizem Cd) 180 mg PO DAILY [facility] Last Admin: 04/25/17 09:24 Dose: 180 mg Diphenhydramine HCl (Benadryl) 25 mg PO HS PRN PRN Reason: Insomnia Last Admin: 04/24/17 23:02 Dose: 25 mg Docusate Sodium (Colace) 100 mg PO BID [facility] Last Admin: 04/25/17 09:26 Dose: 100 mg Famotidine (Pepcid) 40 mg PO DAILY [facility] Last Admin: 04/25/17 09:25 Dose: 40 mg Ferrous Sulfate (Feosol) 324 mg PO DAILY [facility] Last Admin: 04/25/17 09:25 Dose: 324 mg Furosemide (Lasix) 20 mg PO BID [facility] Last Admin: 04/25/17 09:26 Dose: 20 mg Glipizide (Glucotrol) 5 mg PO DAILY [facility] Last Admin: 04/25/17 09:25 Dose: 5 mg Hydralazine HCl (Apresoline) 25 mg PO TID [facility] Last Admin: 04/25/17 13:43 Dose: 25 mg Meropenem 500 mg/ Sodium (Chloride) 50 mls @ 100 mls/hr IVPB Q12 [facility] PRN Reason: Protocol Last Admin: 04/25/17 09:29 Dose: 100 mls/hr Insulin Human Regular (Humulin R Low) 0 units SC ACHS [facility] PRN Reason: Protocol Last Admin: 04/25/17 12:11 Dose: 1 units Lidocaine (Lidoderm) 1 ea TD DAILY [facility] Last Admin: 04/25/17 09:22 Dose: 1 ea Lisinopril (Zestril) 20 mg PO DAILY [facility] Last Admin: 04/25/17 09:24 Dose: 20 mg Loratadine (Claritin) 10 mg PO DAILY [facility] Last Admin: 04/25/17 09:25 Dose: 10 mg Montelukast Sodium (Singulair) 10 mg PO DAILY [facility] Last Admin: 04/25/17 09:24 Dose: 10 mg Nitroglycerin (Nitrostat Sl Tab) 0.4 mg SL Q5M PRN PRN Reason: chest pain Last Admin: 04/25/17 09:08 Dose: 0.4 mg Non-Formulary Medication (Budesonide/Formoterol Fumarate [Symbicort 160-4.5 Mcg Inhaler]) 2 puff IH BID [facility] Last Admin: 04/25/17 09:28 Dose: Not Given Non-Formulary Medication (Linagliptin [Tradjenta]) 5 mg PO DAILY [facility] Last Admin: 04/25/17 09:27 Dose: Not Given Nortriptyline HCl (Pamelor) 10 mg PO TID [facility] Last Admin: 04/25/17 13:43 Dose: 10 mg Potassium Chloride (K-Dur 20 Meq Er Tab) 20 meq PO BRK [facility] Last Admin: 04/25/17 08:06 Dose: 20 meq Prasugrel (Effient) 10 mg PO DAILY [facility] Last Admin: 04/25/17 09:24 Dose: 10 mg Warfarin Sodium (Coumadin) 4 mg PO 1800 [facility] PRN Reason: Protocol Last Admin: 04/24/17 17:28 Dose: 4 mg - Labs Labs: 04/23/17 06:15 04/23/17 06:15 PT 18.5 SECONDS (9.4-12.5) H 04/24/17 06:00 INR 1.66 (0.93-1.08) H 04/24/17 06:00 APTT 45.1 Seconds (25.1-36.5) H 04/21/17 13:39 - Constitutional Appears: Non-toxic, No Acute Distress, Chronically Ill - Head Exam Head Exam: ATRAUMATIC, NORMOCEPHALIC - Eye Exam Eye Exam: EOMI, PERRL Pupil Exam: NORMAL ACCOMODATION, PERRL - ENT Exam ENT Exam: Mucous Membranes Moist, Normal External Ear Exam, TM's Normal Bilaterally - Neck Exam Neck Exam: Full ROM, Normal Inspection - Respiratory Exam Respiratory Exam: Clear to Ausculation Bilateral, NORMAL BREATHING PATTERN. absent: Rales, Rhonchi, Wheezes - Cardiovascular Exam Cardiovascular Exam: REGULAR RHYTHM, RRR, +S1, +S2 - GI/Abdominal Exam GI & Abdominal Exam: Soft, Normal Bowel Sounds. absent: Distended, Tenderness - Extremities Exam Extremities Exam: Full ROM, Normal Inspection - Neurological Exam Neurological Exam: Alert, Awake, Oriented x3 - Psychiatric Exam Psychiatric exam: Normal Affect - Skin Skin Exam: Intact, Normal Color Assessment and Plan - Assessment and Plan (Free Text) Assessment: 72 yo female with original admission for depression with syncopal episode in psychiatry. Patient was also found to have a UTI with ESBL + E. Coli. Continue Meropenem for antibiotic treatment of UTI at this time. Supportive care. Undergoing heart evaluation. Patient does have renal insufficiency so antibiotic dosing has been reduced accordingly. On contact isolation for the ESBL+ E. Coli. Syncopal episode on the psychiatric floor. PPM interrogation showed no significant events. Patient states that she is feeling better now. Repeat urine cultures taken. Plan for total of 5-7 days of IV Meropenem at this point. She is on Day 4 of meropenem (Day 5 starts on the evening dose of Meropenem). Can complete Meropenem after morning dose tomorrow. Thank you for allowing me to participate in the care of the patient, we will follow with you.
--- NOTE | 2017-04-25 21:54 | CP.PCM.PN ---
<AlidaKady Grazyna - Last Filed: 04/25/17 21:48> Subjective - Date & Time of Evaluation Date of Evaluation: 04/25/17 Time of Evaluation: 21:48 - Subjective Subjective: 72 yr female with history of CAD/CABG/[place]/PCI/Severe LVD, PPM/ICD, NSVT , Diabetes, Hyperlipidemia, COPD, Colon Resection/Ieostomy, Chronic Pain, & Insomnia. She was originally in psychiatry for depression/suicide attempt. After developing chest pain/syncopal episode she was transferred to the ER. She has an UTI. She also is also experiencing family disfunction and homelessness. Today, she resting comfortably in her bed watching t.v. Denies any SOB, chest pain, diarrhea, constipation or urinary frequency. No distress noted. Objective - Vital Signs/Intake and Output Vital Signs (last 24 hours): Temp Pulse Resp BP Pulse Ox 98.1 F 69 16 115/59 L 97 04/25/17 11:37 04/25/17 18:00 04/25/17 11:37 04/25/17 17:38 04/25/17 09:00 Intake and Output: 04/25/17 04/26/17 18:59 06:59 Intake Total 960 Output Total 900 Balance 60 - Medications Medications: Current Medications Acetaminophen (Tylenol 325mg Tab) 650 mg PO Q6H PRN PRN Reason: Pain, Mild (1-3) Last Admin: 04/25/17 13:43 Dose: 650 mg Albuterol Sulfate (Albuterol 0.083% Inhal Misty (2.5 Mg/3 Ml) Ud) 2.5 mg INH TIDRESP [facility] Last Admin: 04/25/17 19:35 Dose: 2.5 mg Aspirin (Aspirin Chewable) 81 mg PO DAILY [facility] Last Admin: 04/25/17 09:25 Dose: 81 mg Atorvastatin Calcium (Lipitor) 20 mg PO DAILY [facility] Last Admin: 04/25/17 09:26 Dose: 20 mg Carvedilol (Coreg) 12.5 mg PO BID [facility] Last Admin: 04/25/17 17:38 Dose: 12.5 mg Digoxin (Lanoxin) 0.25 mg PO QOTHERDAY [facility] Last Admin: 04/25/17 09:44 Dose: 0.25 mg Diltiazem HCl (Cardizem Cd) 180 mg PO DAILY [facility] Last Admin: 04/25/17 09:24 Dose: 180 mg Diphenhydramine HCl (Benadryl) 25 mg PO HS PRN PRN Reason: Insomnia Last Admin: 04/25/17 20:26 Dose: 25 mg Docusate Sodium (Colace) 100 mg PO BID [facility] Last Admin: 04/25/17 17:38 Dose: 100 mg Famotidine (Pepcid) 40 mg PO DAILY [facility] Last Admin: 04/25/17 09:25 Dose: 40 mg Ferrous Sulfate (Feosol) 324 mg PO DAILY [facility] Last Admin: 04/25/17 09:25 Dose: 324 mg Furosemide (Lasix) 20 mg PO BID [facility] Last Admin: 04/25/17 17:37 Dose: 20 mg Glipizide (Glucotrol) 5 mg PO DAILY [facility] Last Admin: 04/25/17 09:25 Dose: 5 mg Hydralazine HCl (Apresoline) 25 mg PO TID [facility] Last Admin: 04/25/17 17:38 Dose: 25 mg Meropenem 500 mg/ Sodium (Chloride) 50 mls @ 100 mls/hr IVPB Q12 [facility] PRN Reason: Protocol Last Admin: 04/25/17 21:41 Dose: 100 mls/hr Insulin Human Regular (Humulin R Low) 0 units SC ACHS [facility] PRN Reason: Protocol Last Admin: 04/25/17 17:39 Dose: Not Given Lidocaine (Lidoderm) 1 ea TD DAILY [facility] Last Admin: 04/25/17 09:22 Dose: 1 ea Lisinopril (Zestril) 20 mg PO DAILY [facility] Last Admin: 04/25/17 09:24 Dose: 20 mg Loratadine (Claritin) 10 mg PO DAILY [facility] Last Admin: 04/25/17 09:25 Dose: 10 mg Montelukast Sodium (Singulair) 10 mg PO DAILY [facility] Last Admin: 04/25/17 09:24 Dose: 10 mg Nitroglycerin (Nitrostat Sl Tab) 0.4 mg SL Q5M PRN PRN Reason: chest pain Last Admin: 04/25/17 09:08 Dose: 0.4 mg Non-Formulary Medication (Budesonide/Formoterol Fumarate [Symbicort 160-4.5 Mcg Inhaler]) 2 puff IH BID [facility] Last Admin: 04/25/17 17:38 Dose: Not Given Non-Formulary Medication (Linagliptin [Tradjenta]) 5 mg PO DAILY [facility] Last Admin: 04/25/17 09:27 Dose: Not Given Nortriptyline HCl (Pamelor) 10 mg PO TID [facility] Last Admin: 04/25/17 17:37 Dose: 10 mg Potassium Chloride (K-Dur 20 Meq Er Tab) 20 meq PO BRK [facility] Last Admin: 04/25/17 08:06 Dose: 20 meq Prasugrel (Effient) 10 mg PO DAILY [facility] Last Admin: 04/25/17 09:24 Dose: 10 mg Warfarin Sodium (Coumadin) 4 mg PO 1800 [facility] PRN Reason: Protocol Last Admin: 04/25/17 17:37 Dose: 4 mg - Labs Labs: 04/23/17 06:15 04/23/17 06:15 PT 18.5 SECONDS (9.4-12.5) H 04/24/17 06:00 INR 1.66 (0.93-1.08) H 04/24/17 06:00 APTT 45.1 Seconds (25.1-36.5) H 04/21/17 13:39 - Constitutional Appears: Well, Chronically Ill - Head Exam Head Exam: NORMAL INSPECTION - Eye Exam Eye Exam: Normal appearance Pupil Exam: NORMAL ACCOMODATION - ENT Exam ENT Exam: Mucous Membranes Moist - Neck Exam Neck Exam: Normal Inspection - Respiratory Exam Respiratory Exam: Clear to Ausculation Bilateral - Cardiovascular Exam Cardiovascular Exam: +S1, +S4, Murmur - GI/Abdominal Exam GI & Abdominal Exam: Soft, Normal Bowel Sounds - Extremities Exam Extremities Exam: Normal Inspection - Neurological Exam Neurological Exam: Alert, Awake, Oriented x3 - Psychiatric Exam Psychiatric exam: Normal Affect, Normal Mood - Skin Skin Exam: Dry, Normal Color, Warm Assessment and Plan (1) Depression Status: Acute (2) UTI (urinary tract infection) Status: Acute (3) Chest pain Status: Acute (4) Atrial fibrillation Status: Acute (5) Congestive heart failure Status: Acute (6) Soft tissue injury of back Status: Acute (7) Anemia Status: Chronic (8) Diabetes mellitus Status: Chronic - Assessment and Plan (Free Text) Plan: Depression * Dr. Hackett - Psych UTI * Dr. Cohn - ID * (+) ESBL & E. Coli in the urine cultures, being tx w/ Meropenem for 5-7 days Chest pain * Dr. Kemp - Cardio * PPM interrogated, V paced ECG done 04/21 Afib * Stable, on Telemetry CHF * Stable, on Telemetry Soft tissue injury of Back * Reports relief from R shoulder lidocaine Patch Anemia * Noted. Will continue to follow. DM II * Hyperglycemia. Will continue to follow. <Tanisha Lebron - Last Filed: 04/26/17 09:06> Objective - Vital Signs/Intake and Output Vital Signs (last 24 hours): Temp Pulse Resp BP Pulse Ox 98.6 F 78 20 150/66 97 04/26/17 06:00 04/26/17 06:00 04/26/17 06:00 04/26/17 06:00 04/26/17 06:00 Intake and Output: 04/26/17 04/26/17 06:59 18:59 Intake Total 1010 Balance 1010 - Medications Medications: Current Medications Acetaminophen (Tylenol 325mg Tab) 650 mg PO Q6H PRN PRN Reason: Pain, Mild (1-3) Last Admin: 04/25/17 13:43 Dose: 650 mg Albuterol Sulfate (Albuterol 0.083% Inhal Misty (2.5 Mg/3 Ml) Ud) 2.5 mg INH TIDRESP [facility] Last Admin: 04/26/17 08:18 Dose: 2.5 mg Aspirin (Aspirin Chewable) 81 mg PO DAILY [facility] Last Admin: 04/25/17 09:25 Dose: 81 mg Atorvastatin Calcium (Lipitor) 20 mg PO DAILY [facility] Last Admin: 04/25/17 09:26 Dose: 20 mg Carvedilol (Coreg) 12.5 mg PO BID [facility] Last Admin: 04/25/17 17:38 Dose: 12.5 mg Digoxin (Lanoxin) 0.25 mg PO QOTHERDAY [facility] Last Admin: 04/25/17 09:44 Dose: 0.25 mg Diltiazem HCl (Cardizem Cd) 180 mg PO DAILY [facility] Last Admin: 04/25/17 09:24 Dose: 180 mg Diphenhydramine HCl (Benadryl) 25 mg PO HS PRN PRN Reason: Insomnia Last Admin: 04/25/17 20:26 Dose: 25 mg Docusate Sodium (Colace) 100 mg PO BID [facility] Last Admin: 04/25/17 17:38 Dose: 100 mg Famotidine (Pepcid) 40 mg PO DAILY [facility] Last Admin: 04/25/17 09:25 Dose: 40 mg Ferrous Sulfate (Feosol) 324 mg PO DAILY [facility] Last Admin: 04/25/17 09:25 Dose: 324 mg Fluticasone Propionate (Flonase) 1 actuation NS BID [facility] Last Admin: 04/25/17 23:36 Dose: 1 spr Furosemide (Lasix) 20 mg PO BID [facility] Last Admin: 04/25/17 17:37 Dose: 20 mg Glipizide (Glucotrol) 5 mg PO DAILY [facility] Last Admin: 04/25/17 09:25 Dose: 5 mg Hydralazine HCl (Apresoline) 25 mg PO TID [facility] Last Admin: 04/25/17 17:38 Dose: 25 mg Meropenem 500 mg/ Sodium (Chloride) 50 mls @ 100 mls/hr IVPB Q12 [facility] PRN Reason: Protocol Last Admin: 04/25/17 21:41 Dose: 100 mls/hr Insulin Human Regular (Humulin R Low) 0 units SC ACHS [facility] PRN Reason: Protocol Last Admin: 04/26/17 07:59 Dose: Not Given Lidocaine (Lidoderm) 1 ea TD DAILY [facility] Last Admin: 04/25/17 09:22 Dose: 1 ea Lisinopril (Zestril) 20 mg PO DAILY [facility] Last Admin: 04/25/17 09:24 Dose: 20 mg Loratadine (Claritin) 10 mg PO DAILY [facility] Last Admin: 04/25/17 09:25 Dose: 10 mg Montelukast Sodium (Singulair) 10 mg PO DAILY [facility] Last Admin: 04/25/17 09:24 Dose: 10 mg Nitroglycerin (Nitrostat Sl Tab) 0.4 mg SL Q5M PRN PRN Reason: chest pain Last Admin: 04/25/17 09:08 Dose: 0.4 mg Non-Formulary Medication (Budesonide/Formoterol Fumarate [Symbicort 160-4.5 Mcg Inhaler]) 2 puff IH BID [facility] Last Admin: 04/25/17 17:38 Dose: Not Given Non-Formulary Medication (Linagliptin [Tradjenta]) 5 mg PO DAILY [facility] Last Admin: 04/25/17 09:27 Dose: Not Given Nortriptyline HCl (Pamelor) 10 mg PO TID [facility] Last Admin: 04/25/17 17:37 Dose: 10 mg Potassium Chloride (K-Dur 20 Meq Er Tab) 20 meq PO BRK [facility] Last Admin: 04/26/17 07:58 Dose: 20 meq Prasugrel (Effient) 10 mg PO DAILY [facility] Last Admin: 04/25/17 09:24 Dose: 10 mg Prednisone (Prednisone Tab) 10 mg PO DAILY [facility] Warfarin Sodium (Coumadin) 4 mg PO 1800 [facility] PRN Reason: Protocol Last Admin: 04/25/17 17:37 Dose: 4 mg - Labs Labs: 04/23/17 06:15 04/23/17 06:15 PT 23.7 SECONDS (9.4-12.5) H 04/26/17 06:00 INR 2.12 (0.93-1.08) H 04/26/17 06:00 APTT 45.1 Seconds (25.1-36.5) H 04/21/17 13:39 Assessment and Plan - Assessment and Plan (Free Text) Plan: pt is seen /e at bed side . looking comfortable ,agreed all above , pt . ot at bed side , d/d with staff ,pt . cont. anb. as per id . lidoderm patch on the back ,
[2017-04-25] MEDS: Fluticasone Nasal 50 mcg/Spray NS SCH (23:36)
--- NOTE | 2017-04-26 00:36 | PN ---
PULMONARY PROGRESS NOTE DATE: 04/25/2017 REFERRING PHYSICIAN: Tanisha Lebron MD SUBJECTIVE: She is sitting up in a chair, complaining about rhinitis, itchy eyes, and mild cough. No chest pain. No nausea. No vomiting. No diarrhea. No leg pain or leg swelling. OBJECTIVE: VITAL SIGNS: Temperature is 98, heart rate is 69, respiratory rate is 20, blood pressure is 115/59, and pulse ox is 97% on room air. HEENT: Moist mucous membranes. Crowded airway. NECK: Supple. No JVD. LUNGS: Has a fair airflow with few rhonchi. HEART: S1 and S2. ABDOMEN: Soft and nontender. No organomegaly. EXTREMITIES: There is no edema. NEUROLOGIC: Awake and alert. Follow simple commands. MEDICATIONS: She is on albuterol/Atrovent nebulizer q.8 hours, hydralazine 25 mg 3 times a day, aspirin 81 mg daily, Benadryl 25 mg at bedtime p.r.n., Cardizem CD 180 mg daily, Claritin 10 mg daily, Colace 100 mg twice a day, Coreg 12.5 mg twice a day, Coumadin 10 mg given today, ferrous sulfate 325 mg daily, glipizide 5 mg daily, potassium 20 mEq daily, digoxin 0.25 mg, Lasix 20 mg twice a day, Lidoderm patch to the affected area, Tradjenta 5 mg daily, Lipitor 20 mg daily, meropenem 500 mg q.12 hours, Nitrostat p.r.n. basis, nortriptyline 10 mg 3 times a day, Pepcid 40 mg daily, Singulair 10 mg daily, Tylenol p.r.n., and Zestril 20 mg daily. LABORATORY DATA: Shows hemoglobin 9.6, hematocrit 29.1, and WBC 6.9. Blood sugar this morning was 138. IMPRESSION AND PLAN: Status post syncopal episode, chronic obstructive lung disease, may have sleep apnea syndrome, cardiomyopathy, coronary artery disease, history of coronary stent, atrial fibrillation, diabetes, depression, urinary tract infection, have seasonal allergies with rhinitis, cough, and watery eyes, already on antihistamine, we will add Flonase one spray to each nostril twice a day, may give prednisone 10 mg one dose, and Singulair 10 mg at bedtime. Sleep apnea precaution, keep head at 45 degrees, discharge planning, and [employer] consult. Thank you and we will follow with you. Rosina Gabriel MD
[2017-04-26] MEDS: Insulin Reg-LOW-Coverage SC SCH ×5 (02:31→21:26)
[2017-04-26 07:18] LABS: INR 2.12 (0.93-1.08)
--- NOTE | 2017-04-26 07:25 | CP.PCM.PN ---
Subjective - Date & Time of Evaluation Date of Evaluation: 04/26/17 Time of Evaluation: 07:00 - Subjective Subjective: She feels well this AM. No CP, SOB, Syncope. V/S noted V. Paced PE: Lungs: clear Cor.: S1S2, sys. murmur Abd.: soft Ext.; no edema Neuro.: alert Labs noted: INR= 2.12 ECG 04/21: V. Paced CT head: NL. Objective - Vital Signs/Intake and Output Vital Signs (last 24 hours): Temp Pulse Resp BP Pulse Ox 98.0 F 72 18 122/57 L 99 04/26/17 00:01 04/26/17 05:34 04/26/17 00:01 04/26/17 00:01 04/26/17 00:01 Intake and Output: 04/26/17 04/26/17 06:59 18:59 Intake Total 1010 Balance 1010 - Medications Medications: Current Medications Acetaminophen (Tylenol 325mg Tab) 650 mg PO Q6H PRN PRN Reason: Pain, Mild (1-3) Last Admin: 04/25/17 13:43 Dose: 650 mg Albuterol Sulfate (Albuterol 0.083% Inhal Misty (2.5 Mg/3 Ml) Ud) 2.5 mg INH TIDRESP [facility] Last Admin: 04/25/17 19:35 Dose: 2.5 mg Aspirin (Aspirin Chewable) 81 mg PO DAILY [facility] Last Admin: 04/25/17 09:25 Dose: 81 mg Atorvastatin Calcium (Lipitor) 20 mg PO DAILY [facility] Last Admin: 04/25/17 09:26 Dose: 20 mg Carvedilol (Coreg) 12.5 mg PO BID [facility] Last Admin: 04/25/17 17:38 Dose: 12.5 mg Digoxin (Lanoxin) 0.25 mg PO QOTHERDAY [facility] Last Admin: 04/25/17 09:44 Dose: 0.25 mg Diltiazem HCl (Cardizem Cd) 180 mg PO DAILY [facility] Last Admin: 04/25/17 09:24 Dose: 180 mg Diphenhydramine HCl (Benadryl) 25 mg PO HS PRN PRN Reason: Insomnia Last Admin: 04/25/17 20:26 Dose: 25 mg Docusate Sodium (Colace) 100 mg PO BID [facility] Last Admin: 04/25/17 17:38 Dose: 100 mg Famotidine (Pepcid) 40 mg PO DAILY [facility] Last Admin: 04/25/17 09:25 Dose: 40 mg Ferrous Sulfate (Feosol) 324 mg PO DAILY [facility] Last Admin: 04/25/17 09:25 Dose: 324 mg Fluticasone Propionate (Flonase) 1 actuation NS BID [facility] Last Admin: 04/25/17 23:36 Dose: 1 spr Furosemide (Lasix) 20 mg PO BID [facility] Last Admin: 04/25/17 17:37 Dose: 20 mg Glipizide (Glucotrol) 5 mg PO DAILY [facility] Last Admin: 04/25/17 09:25 Dose: 5 mg Hydralazine HCl (Apresoline) 25 mg PO TID [facility] Last Admin: 04/25/17 17:38 Dose: 25 mg Meropenem 500 mg/ Sodium (Chloride) 50 mls @ 100 mls/hr IVPB Q12 [facility] PRN Reason: Protocol Last Admin: 04/25/17 21:41 Dose: 100 mls/hr Insulin Human Regular (Humulin R Low) 0 units SC ACHS [facility] PRN Reason: Protocol Last Admin: 04/26/17 02:31 Dose: Not Given Lidocaine (Lidoderm) 1 ea TD DAILY [facility] Last Admin: 04/25/17 09:22 Dose: 1 ea Lisinopril (Zestril) 20 mg PO DAILY [facility] Last Admin: 04/25/17 09:24 Dose: 20 mg Loratadine (Claritin) 10 mg PO DAILY [facility] Last Admin: 04/25/17 09:25 Dose: 10 mg Montelukast Sodium (Singulair) 10 mg PO DAILY [facility] Last Admin: 04/25/17 09:24 Dose: 10 mg Nitroglycerin (Nitrostat Sl Tab) 0.4 mg SL Q5M PRN PRN Reason: chest pain Last Admin: 04/25/17 09:08 Dose: 0.4 mg Non-Formulary Medication (Budesonide/Formoterol Fumarate [Symbicort 160-4.5 Mcg Inhaler]) 2 puff IH BID [facility] Last Admin: 04/25/17 17:38 Dose: Not Given Non-Formulary Medication (Linagliptin [Tradjenta]) 5 mg PO DAILY [facility] Last Admin: 04/25/17 09:27 Dose: Not Given Nortriptyline HCl (Pamelor) 10 mg PO TID [facility] Last Admin: 04/25/17 17:37 Dose: 10 mg Potassium Chloride (K-Dur 20 Meq Er Tab) 20 meq PO BRK [facility] Last Admin: 04/25/17 08:06 Dose: 20 meq Prasugrel (Effient) 10 mg PO DAILY [facility] Last Admin: 04/25/17 09:24 Dose: 10 mg Prednisone (Prednisone Tab) 10 mg PO DAILY [facility] Warfarin Sodium (Coumadin) 4 mg PO 1800 [facility] PRN Reason: Protocol Last Admin: 04/25/17 17:37 Dose: 4 mg - Labs Labs: 04/23/17 06:15 04/23/17 06:15 PT 23.7 SECONDS (9.4-12.5) H 04/26/17 06:00 INR 2.12 (0.93-1.08) H 04/26/17 06:00 APTT 45.1 Seconds (25.1-36.5) H 04/21/17 13:39 Assessment and Plan - Assessment and Plan (Free Text) Assessment: Syncope while on psych unit for depression and suicidal ideation. Homeless State CP episode while on psych, mild + trops CAD/CABG/MT/PCI/Severe LVD UTI ICD, no events on recent interrogation NSVT PAF HBP Diabetes HLD COPD CVD Colon Resection/Ieostomy Chronic Pain Insomnia Plan: INR tomorrow Continue other cardiac meds. OOB to chair as lou./PT Psych F/U As per Pulm, ID, Psych., Laborer General, Dr. Lebron Laborer General Assistance: Severe Social Issues. Please speak with her sister. Temp outside 30 degrees today.
[2017-04-26] MEDS: Potassium Chloride 20 mEq ER Tab PO SCH (07:58)
[2017-04-26] MEDS: Albuterol 0.083% Inhal Sol (2.5 mg/3 mL) UD INH SCH ×2 (08:18→21:00)
[2017-04-26] MEDS: diltiaZEM 180 mg/24 Hours CD Cap PO SCH (10:32)
[2017-04-26] MEDS: Lidocaine 5% Patch TD SCH (10:33)
[2017-04-26] MEDS: Fluticasone Nasal 50 mcg/Spray NS SCH (10:33)
[2017-04-26] MEDS: Meropenem 500 MG in Sodium Chloride 0.9% 50 ML IVPB SCH ×2 (10:34→21:32)
[2017-04-26] MEDS: Non Formulary Medication (Linagliptin [Tradjenta] 5 MG) PO SCH (11:49)
--- NOTE | 2017-04-26 17:36 | CP.PCM.PN ---
Subjective - Date & Time of Evaluation Date of Evaluation: 04/26/17 Time of Evaluation: 16:30 - Subjective Subjective: Infectious Disease Follow Up: April 26, 2017 72 yo female originally in psychiatry for depression. The patient developed chest pain with radiation. She was transferred to the ER after developing a syncopal like episode in psychiatric floor. The patient has lightheadedness, headache, and nausea. The patient denies chest pain or SOB at this time. The patient was found to have ESBL + E. Coli in the urine cultures here. On Meropenem now for treatment of UTI. Awaiting PPM interrogation... done - no significant events. Repeat urine culture taken - results showing no growth x 2. Patient making no significant complaints at this time and appears comfortable. Objective - Vital Signs/Intake and Output Vital Signs (last 24 hours): Temp Pulse Resp BP Pulse Ox 98.1 F 80 18 121/52 L 97 04/26/17 12:00 04/26/17 13:43 04/26/17 12:00 04/26/17 13:43 04/26/17 06:00 Intake and Output: 04/26/17 04/26/17 06:59 18:59 Intake Total 1010 300 Output Total 600 Balance 1010 -300 - Medications Medications: Current Medications Acetaminophen (Tylenol 325mg Tab) 650 mg PO Q6H PRN PRN Reason: Pain, Mild (1-3) Last Admin: 04/25/17 13:43 Dose: 650 mg Albuterol Sulfate (Albuterol 0.083% Inhal Misty (2.5 Mg/3 Ml) Ud) 2.5 mg INH TIDRESP [facility] Last Admin: 04/26/17 08:18 Dose: 2.5 mg Aspirin (Aspirin Chewable) 81 mg PO DAILY [facility] Last Admin: 04/26/17 10:28 Dose: 81 mg Atorvastatin Calcium (Lipitor) 20 mg PO DAILY [facility] Last Admin: 04/26/17 10:28 Dose: 20 mg Carvedilol (Coreg) 12.5 mg PO BID [facility] Last Admin: 04/26/17 10:29 Dose: 12.5 mg Digoxin (Lanoxin) 0.25 mg PO QOTHERDAY [facility] Last Admin: 04/25/17 09:44 Dose: 0.25 mg Diltiazem HCl (Cardizem Cd) 180 mg PO DAILY [facility] Last Admin: 04/26/17 10:32 Dose: 180 mg Diphenhydramine HCl (Benadryl) 25 mg PO HS PRN PRN Reason: Insomnia Last Admin: 04/25/17 20:26 Dose: 25 mg Docusate Sodium (Colace) 100 mg PO BID [facility] Last Admin: 04/26/17 10:30 Dose: 100 mg Famotidine (Pepcid) 40 mg PO DAILY [facility] Last Admin: 04/26/17 10:31 Dose: 40 mg Ferrous Sulfate (Feosol) 324 mg PO DAILY [facility] Last Admin: 04/26/17 10:31 Dose: 324 mg Fluticasone Propionate (Flonase) 1 actuation NS BID [facility] Last Admin: 04/26/17 10:33 Dose: 1 spr Furosemide (Lasix) 20 mg PO BID [facility] Last Admin: 04/26/17 10:30 Dose: 20 mg Glipizide (Glucotrol) 5 mg PO DAILY [facility] Last Admin: 04/26/17 10:29 Dose: 5 mg Hydralazine HCl (Apresoline) 25 mg PO TID [facility] Last Admin: 04/26/17 13:43 Dose: 25 mg Meropenem 500 mg/ Sodium (Chloride) 50 mls @ 100 mls/hr IVPB Q12 [facility] PRN Reason: Protocol Last Admin: 04/26/17 10:34 Dose: 100 mls/hr Insulin Human Regular (Humulin R Low) 0 units SC ACHS [facility] PRN Reason: Protocol Last Admin: 04/26/17 13:02 Dose: 1 units Lidocaine (Lidoderm) 1 ea TD DAILY [facility] Last Admin: 04/26/17 10:33 Dose: 1 ea Lisinopril (Zestril) 20 mg PO DAILY [facility] Last Admin: 04/26/17 10:32 Dose: 20 mg Loratadine (Claritin) 10 mg PO DAILY [facility] Last Admin: 04/26/17 10:31 Dose: 10 mg Montelukast Sodium (Singulair) 10 mg PO DAILY [facility] Last Admin: 04/26/17 10:29 Dose: 10 mg Nitroglycerin (Nitrostat Sl Tab) 0.4 mg SL Q5M PRN PRN Reason: chest pain Last Admin: 04/25/17 09:08 Dose: 0.4 mg Non-Formulary Medication (Budesonide/Formoterol Fumarate [Symbicort 160-4.5 Mcg Inhaler]) 2 puff IH BID [facility] Last Admin: 04/25/17 17:38 Dose: Not Given Non-Formulary Medication (Linagliptin [Tradjenta]) 5 mg PO DAILY [facility] Last Admin: 04/26/17 11:49 Dose: Not Given Nortriptyline HCl (Pamelor) 10 mg PO TID [facility] Last Admin: 04/26/17 13:43 Dose: 10 mg Potassium Chloride (K-Dur 20 Meq Er Tab) 20 meq PO BRK [facility] Last Admin: 04/26/17 07:58 Dose: 20 meq Prasugrel (Effient) 10 mg PO DAILY [facility] Last Admin: 04/26/17 10:31 Dose: 10 mg Warfarin Sodium (Coumadin) 4 mg PO 1800 [facility] PRN Reason: Protocol Last Admin: 04/25/17 17:37 Dose: 4 mg - Labs Labs: 04/23/17 06:15 04/23/17 06:15 PT 23.7 SECONDS (9.4-12.5) H 04/26/17 06:00 INR 2.12 (0.93-1.08) H 04/26/17 06:00 APTT 45.1 Seconds (25.1-36.5) H 04/21/17 13:39 - Constitutional Appears: Non-toxic, No Acute Distress, Chronically Ill - Head Exam Head Exam: ATRAUMATIC, NORMOCEPHALIC - Eye Exam Eye Exam: EOMI, PERRL Pupil Exam: NORMAL ACCOMODATION, PERRL - ENT Exam ENT Exam: Mucous Membranes Moist, Normal External Ear Exam, TM's Normal Bilaterally - Neck Exam Neck Exam: Full ROM, Normal Inspection - Respiratory Exam Respiratory Exam: Clear to Ausculation Bilateral, NORMAL BREATHING PATTERN. absent: Rales, Rhonchi, Wheezes - Cardiovascular Exam Cardiovascular Exam: REGULAR RHYTHM, RRR, +S1, +S2 - GI/Abdominal Exam GI & Abdominal Exam: Soft, Normal Bowel Sounds. absent: Distended, Tenderness - Extremities Exam Extremities Exam: Full ROM, Normal Inspection - Neurological Exam Neurological Exam: Alert, Awake, CN II-XII Intact, Oriented x3 - Psychiatric Exam Psychiatric exam: Normal Affect, Normal Mood - Skin Skin Exam: Intact, Normal Color Assessment and Plan - Assessment and Plan (Free Text) Assessment: 72 yo female with original admission for depression with syncopal episode in psychiatry. Patient was also found to have a UTI with ESBL + E. Coli. Continue Meropenem for antibiotic treatment of UTI at this time. Supportive care. Undergoing heart evaluation. Patient does have renal insufficiency so antibiotic dosing has been reduced accordingly. On contact isolation for the ESBL+ E. Coli. Syncopal episode on the psychiatric floor. PPM interrogation showed no significant events. Patient states that she is feeling better now. Repeat urine cultures taken. Plan for total of 5-7 days of IV Meropenem at this point. She is on Day 5 of meropenem (Day 5 completes with morning dose of Meropenem). Can complete Meropenem after morning dose tomorrow. Thank you for allowing me to participate in the care of the patient, we will follow with you.
--- NOTE | 2017-04-26 21:41 | PN ---
PULMONARY PROGRESS NOTE DATE: 04/26/2017 REFERRING PHYSICIAN: Tanisha Lebron MD SUBJECTIVE: She is lying in the bed, sleepy, arousable. Night was unremarkable. Feels much better. No more watery eyes or itchy eyes, rhinitis is better, and mild cough. No nausea. No vomiting. No diarrhea. No leg pain or leg swelling. OBJECTIVE: GENERAL: In no acute distress. VITAL SIGNS: Temperature is 98, heart rate is 80, respiratory rate is 18, blood pressure is 121/52, and pulse ox is 97% on nasal cannula. HEENT: Moist mucous membranes. Carotid airway. NECK: Supple. No JVD. LUNGS: Has a fair airflow with few rhonchi. HEART: S1 and S2. ABDOMEN: Soft and nontender. No organomegaly. EXTREMITIES: There is no edema. NEUROLOGIC: Awake and alert, follows simple commands. MEDICATIONS: She is on albuterol/Atrovent nebulizer q. 8 hours, hydralazine 25 mg 3 times a day, aspirin 81 mg daily, Benadryl 25 mg at bedtime p.r.n., Cardizem CD 180 mg daily, Claritin 10 mg daily, Colace 100 mg twice a day, Coreg 12.5 mg twice a day, Coumadin 4 mg will be given today, Effient 10 mg daily, ferrous sulfate 325 mg daily, Flonase one spray to each nostril twice a day, glipizide 5 mg daily, insulin coverage, potassium 20 mEq daily, digoxin 0.25 mg, Lasix 20 mg twice a day, Lidoderm patch daily, Tradjenta 5 mg daily, Lipitor 20 mg daily, meropenem 1 g IV q. 12 hours, nortriptyline on p.r.n. basis, Amilin 10 mg three times a day, Pepcid 40 mg daily, prednisone 10 mg daily, Singulair 10 mg daily, Tylenol p.r.n., and Zestril 20 mg daily. LABORATORY DATA: Reviewed. Noted INR is 2.12 and glucose is 175. IMPRESSION AND PLAN: Status post syncopal episode, chronic obstructive lung disease, history of suicidal attempt and ideation, presently she is not suicidal, sleep apnea syndrome, cardiomyopathy, coronary artery disease, history of coronary stent, atrial fibrillation, diabetes, depression, urinary tract infection, on antibiotics. From pulmonary point of view, doing okay. Continue antihistamine, leukotriene inhibitor, and nasal Flonase. We will discontinue prednisone and antibiotics as per Infectious Disease. Gastric prophylaxis, on anticoagulation, and followup INR in the morning. Thank you and we will follow with you. Rosina Gabriel MD
--- NOTE | 2017-04-26 23:38 | PN ---
DATE: SUBJECTIVE: The patient seen and examined at the bedside, looking comfortable. No new complaints. No nausea, vomiting or diarrhea. No shortness of breath. No syncope. No headache. No dizziness. No fever. No chills. Physical therapy evaluation started, we will see how she is doing. Up to now, the patient was not getting physical therapy, but we will decide on physical therapy about discharge or send patient to TCU. PHYSICAL EXAMINATION VITAL SIGNS: Temperature 98.0, pulse 72, respiratory rate 18, blood pressure 122/67 and pulse oximetry 99. HEENT: Head normocephalic and atraumatic. Eyes, PERRLA. Extraocular muscles are intact. Conjunctivae clear. Nose patent. Mucous membrane is moist. NECK: Supple. No carotid bruits. No JVD or thyromegaly. CHEST: Bilaterally symmetrical. HEART: S1 and S2 positive. LUNGS: Clear to auscultation. ABDOMEN: Soft. Bowel sounds present. No organomegaly. EXTREMITIES: No edema. No cyanosis. NEUROLOGICAL: The patient is awake and alert. Moving all 4 extremities. No focal deficits. MEDICATIONS: Tylenol, albuterol, aspirin, Lipitor, Coreg, digoxin, Cardizem, Benadryl, Colace, Pepcid, Feosol, Flonase, Lasix, Glucotrol, insulin, Lidoderm, Zestril, Claritin, Nitrostat, nortriptyline and Coumadin. LABORATORY DATA: White blood cell 6.9, hemoglobin 10.6, hematocrit 29.1 and platelets 232. Sodium 139, potassium 4.2, BUN 15, creatinine 1.1 and glucose 121. ASSESSMENT AND PLAN: Ms. Johnny Nobles is a 72 years old lady with history of depression, anxiety, suicidal ideation and plan, got syncopal attack while on the Psych floor. had depression, is homeless, couple of times chest pain while the patient was on the Psych floor. Then has history of syncope, coronary artery disease, coronary artery bypass graft, myocardial infarction, percutaneous coronary intervention, severe left ventricular dysfunction, urinary tract infection, implantable cardioverter defibrillator, diabetes mellitus, pulmonary hypertension, chronic obstructive pulmonary disease, colon resection and ileostomy, chronic pain syndrome, anemia, insomnia. We will continue present treatment. Authorization Representative and weed thinner are on the case. Review Dr. Kemp's notes. Review Dr. Gabriel's notes also. The patient is getting Coumadin. We will check INR. Sleep apnea syndrome. Cardiomyopathy. Dr. Gabriel added Flonase, prednisone and Singulair. Sleep apnea precautions. Ordered physical therapy today. We will do evaluation about her plan. We will make sure that she is to do her activities of daily living. We will decide plan according to that. Tanisha Lebron MD MTDD
[2017-04-27 06:13] VITALS: O2SAT 98
[2017-04-27 06:20] LABS: HEMATOCRIT 34.5 % (36.0-48.0); MEAN CORPUSCULAR HEMOGLOBIN 29.3 pg (25.0-35.0); MEAN CORPUSCULAR HGB CONC 32.2 g/dl (31.0-37.0); RED CELL DISTRIBUTION WIDTH 15.4 % (11.5-14.5); WHITE BLOOD COUNT 7.4 10^3/ul (4.5-11.0)
[2017-04-27 06:36] LABS: INR 2.71 (0.93-1.08)
[2017-04-27 06:41] LABS: POTASSIUM 3.7 mmol/L (3.6-5.0)
[2017-04-27] MEDS: Insulin Reg-LOW-Coverage SC SCH ×2 (08:05→12:06)
[2017-04-27] MEDS: Albuterol 0.083% Inhal Sol (2.5 mg/3 mL) UD INH SCH ×2 (08:17→13:37)
[2017-04-27] MEDS: Fluticasone Nasal 50 mcg/Spray NS SCH (10:55)
[2017-04-27] MEDS: Lidocaine 5% Patch TD SCH (10:55)
[2017-04-27] MEDS: Digoxin 250 mcg (0.25 mg) Tab PO SCH (10:56)
[2017-04-27] MEDS: diltiaZEM 180 mg/24 Hours CD Cap PO SCH (10:57)
[2017-04-27] MEDS: Non Formulary Medication (Budesonide/Formoterol Fumarate [Symbicort 160-4.5 Mcg Inhaler] 2 IH SCH (10:58)
[2017-04-27] MEDS: Potassium Chloride 20 mEq ER Tab PO SCH (10:58)
[2017-04-27] MEDS: Non Formulary Medication (Linagliptin [Tradjenta] 5 MG) PO SCH (10:58)
[2017-04-27 11:08] VITALS: PULSE 75
[2017-04-27 11:42] VITALS: BP 110/49; PULSE 42; RESP 18; TEMP 97.3
--- NOTE | 2017-04-27 18:18 | CP.PCM.PN ---
Subjective - Date & Time of Evaluation Date of Evaluation: 04/27/17 Time of Evaluation: 13:00 - Subjective Subjective: Infectious Disease Follow Up: April 27, 2017 72 yo female originally in psychiatry for depression. The patient developed chest pain with radiation. She was transferred to the ER after developing a syncopal like episode in psychiatric floor. The patient has lightheadedness, headache, and nausea. The patient denies chest pain or SOB at this time. The patient was found to have ESBL + E. Coli in the urine cultures here. On Meropenem now for treatment of UTI. Awaiting PPM interrogation... done - no significant events. Repeat urine culture taken - results showing no growth x 2. Patient making no significant complaints at this time and appears comfortable. Objective - Vital Signs/Intake and Output Vital Signs (last 24 hours): Temp Pulse Resp BP Pulse Ox 97.3 F L 42 L 18 110/49 L 98 04/27/17 11:39 04/27/17 11:39 04/27/17 11:39 04/27/17 11:39 04/27/17 06:00 Intake and Output: 04/27/17 04/27/17 06:59 18:59 Intake Total 1380 50 Balance 1380 50 - Labs Labs: 04/27/17 05:30 04/27/17 05:30 PT 30.4 SECONDS (9.4-12.5) H 04/27/17 05:30 INR 2.71 (0.93-1.08) H 04/27/17 05:30 APTT 45.1 Seconds (25.1-36.5) H 04/21/17 13:39 - Constitutional Appears: Non-toxic, No Acute Distress, Chronically Ill - Head Exam Head Exam: ATRAUMATIC, NORMOCEPHALIC - Eye Exam Eye Exam: EOMI, PERRL Pupil Exam: NORMAL ACCOMODATION, PERRL - ENT Exam ENT Exam: Mucous Membranes Moist, Normal External Ear Exam, TM's Normal Bilaterally - Neck Exam Neck Exam: Full ROM, Normal Inspection - Respiratory Exam Respiratory Exam: Clear to Ausculation Bilateral, NORMAL BREATHING PATTERN. absent: Rales, Rhonchi, Wheezes - Cardiovascular Exam Cardiovascular Exam: REGULAR RHYTHM, RRR, +S1, +S2 - GI/Abdominal Exam GI & Abdominal Exam: Soft, Normal Bowel Sounds. absent: Distended, Tenderness - Extremities Exam Extremities Exam: Full ROM, Normal Inspection - Neurological Exam Neurological Exam: Alert, Awake, CN II-XII Intact, Oriented x3 - Psychiatric Exam Psychiatric exam: Normal Affect, Normal Mood - Skin Skin Exam: Intact, Normal Color Assessment and Plan - Assessment and Plan (Free Text) Assessment: 72 yo female with original admission for depression with syncopal episode in psychiatry. Patient was also found to have a UTI with ESBL + E. Coli. Continue Meropenem for antibiotic treatment of UTI at this time. Supportive care. Undergoing heart evaluation. Patient does have renal insufficiency so antibiotic dosing has been reduced accordingly. On contact isolation for the ESBL+ E. Coli. Syncopal episode on the psychiatric floor. PPM interrogation showed no significant events. Patient states that she is feeling better now. Repeat urine cultures taken. Plan for total of 5-7 days of IV Meropenem at this point. She completed Day 5 of meropenem (Day 5 completes with morning dose of Meropenem). Completed Meropenem this morning. She can be sent home without antibiotics. Thank you for allowing me to participate in the care of the patient, we will follow with you.
--- NOTE | 2017-04-29 18:09 | DS ---
CHIEF COMPLAINT: Syncopal attack. HISTORY OF PRESENT ILLNESS: Ms. Mallorie Francis is a 72-year-old lady with the multiple medical problems, was admitted on the Psych Department because of suicidal attempt and ideation and depression in the Psych Department. The patient has syncopal attack, has couple of times chest pain, then 04/21/2017 we brought her to the medical side, was complaining about lightheadedness, nauseous, status post syncopal attack, we call Cardiology consult, Pulmonary, and Neurology consult, and gave physical therapy. 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 Continue home medications. PAST MEDICAL HISTORY: Congestive heart failure, COPD, respiratory distress, diabetes mellitus type 2, ileostomy reversal, depression, coronary stent, cardiac catheterization, history of neck fusion, and open heart surgery. FAMILY HISTORY: Father and mother noncontributory. HABITS: Former smoker. No alcohol. No substance abuse. ALLERGIES: THE PATIENT IS ALLERGIC WITH PLAVIX. HOME MEDICATIONS: Reviewed by me. REVIEW OF SYSTEMS: The patient was seen and examined on the bedside, looking comfortable. No more headache or dizziness. No nausea, vomiting, or diarrhea. No hematuria or hematochezia. No swelling of the leg. No more chest pain or shortness of breath. No fever. No chills. No palpitation. PHYSICAL EXAMINATION: VITAL SIGNS: Temperature 97.3, pulse 42, blood pressure 110/49, respiratory rate 18, and pulse oximetry of 98. HEENT: Head is normocephalic and atraumatic. Eyes; PERRLA. Extraocular muscles intact. Conjunctivae are clear. Nose is patent. Mucous membranes are moist. NECK: Supple. No carotid bruits. No JVD or thyromegaly. CHEST: Bilaterally symmetrical. HEART: S1 and S2 positive. LUNGS: Clear to auscultation. ABDOMEN: Soft. Bowel sounds positive. No organomegaly. EXTREMITIES: No edema. No cyanosis. NEUROLOGIC: The patient is awake and alert. Moving all 4 extremities. No focal deficits. LABORATORY DATA: White blood cell is 7.4, hemoglobin 11.1, hematocrit 34.5, and platelets 272. Sodium 139, potassium 3.7, BUN 23, creatinine 1.1 and glucose 133. ASSESSMENT AND PLAN: Ms. Mallorie Francis is a 72-year-old lady with anemia and hyperglycemia, who actually was admitted in Psych Department for suicidal attempt and over there she has syncopal attack, multiple times chest pain, and transferred to medical floor. The patient was found to have urinary tract infection with extended-spectrum beta-lactamases and Escherichia coli. Meropenem antibiotics given for urinary tract infection by Dr. Cohn. PPM interrogation showed no significant event even during syncope. Repeat urine cultures were taken. The patient completed 5 days of meropenem. According to Dr. Cohn, the patient is done with meropenem treatment and she can be sent home without antibiotics as per ID. ID cleared the patient. The patient has a history of chronic obstructive pulmonary disease, obstructive sleep apnea syndrome, congestive heart failure, history of depression and anxiety, history of coronary artery disease, cardiac stenting, open heart surgery, and atrial fibrillation. She is on Coumadin. She has left ventricular dysfunction, hhtusppzvio-nxsreishondz-[id number], diabetes mellitus, pulmonary hypertension, colon resection and ileostomy in the past, chronic pain syndrome, anemia, and insomnia. The patient discharged per ID and Cardiology sent home. Follow up with primary care physician, ID, and Cardiology. Tanisha Lebron MD CONTR[facility]
== END 2017-04-27 14:05 | disposition home or self-care (01) | DRG 312 ==
LOC: ED 12:35 → ERH 14:18 → 2RSO 15:39
PROVIDERS: ADMIT Internal Medicine; ATTEND Internal Medicine
PROC: 3E0F7GC Introduction of Other Therapeutic Substance into Respiratory Tract, Via Natural or Artificial Opening (ICD-10-PCS; principal; 2017-04-22)
DX: I95.1 Orthostatic hypotension (principal); I47.2 Ventricular tachycardia; I42.9 Cardiomyopathy, unspecified; R45.851 Suicidal ideations; N39.0 Urinary tract infection, site not specified; I50.9 Heart failure, unspecified; D64.9 Anemia, unspecified; I25.10 Atherosclerotic heart disease of native coronary artery without angina pectoris; G47.33 Obstructive sleep apnea (adult) (pediatric); F32.9 Major depressive disorder, single episode, unspecified; E78.00 Pure hypercholesterolemia, unspecified; B96.20 Unspecified Escherichia coli [E. coli] as the cause of diseases classified elsewhere; I48.0 Paroxysmal atrial fibrillation; G47.00 Insomnia, unspecified; J44.9 Chronic obstructive pulmonary disease, unspecified; J30.2 Other seasonal allergic rhinitis; G89.4 Chronic pain syndrome; I27.20 Pulmonary hypertension, unspecified; I25.2 Old myocardial infarction; Z86.73 Personal history of transient ischemic attack (TIA), and cerebral infarction without residual deficits; Z59.0 Homelessness; Z78.9 Other specified health status; Z95.5 Presence of coronary angioplasty implant and graft; Z95.1 Presence of aortocoronary bypass graft; Z95.810 Presence of automatic (implantable) cardiac defibrillator; Z98.1 Arthrodesis status; Z87.891 Personal history of nicotine dependence

== ENCOUNTER 2017-05-12 19:31 | Inpatient (IN) | payer MEDICARE, MEDICAID ==
--- NOTE | 2017-05-12 21:20 | ED PDOC ---
Arrival/HPI - General Chief Complaint: Psychiatric Evaluation Time Seen by Provider: 05/12/17 19:36 Historian: Patient - History of Present Illness Narrative History of Present Illness (Text): 05/12/17 20:16 A 72 year old female, whose past medical history includes CAD, neck fusion, triple bypass, COPD, ICD Pacemaker defribrillator, illeostomy, kidney failure, reverse illeostomy, irritable bowel w/ diarrhea, heart attack x 3 stents, asthma , CHF, presents to the emergency department complaining of depression. Patient reports she will be made homeless tomorrow and so she cut her left wrist last night due to depression. Also, patient notes experiencing pressure-like chest pain with associated shortness of breath. Shortness of breath has resolved now but currently still experiences chest pain. Patient denies any fever, chills, cough, nausea, vomiting, or any other complaints. Also, patient mentions she did not overdose on any pills and has not taken any of her medications today. PMD: Dr. Lebron Time/Duration: Other (last night) Past Medical History - Provider Review Nursing Documentation Reviewed: Yes - Infectious Disease Hx of Infectious Diseases: None - Cardiac Hx Cardiac Disorders: Yes Hx Angina: Yes (mi) Hx Cardiac Arrhythmia: Yes (afib) Hx Congestive Heart Failure: Yes Hx Heart Murmur: Yes Hx Internal Defibrillator: Yes Hx Pacemaker: Yes Other/Comment: cabg 3 vessels - Pulmonary Hx Respiratory Disorders: Yes Hx Asthma: Yes Hx Chronic Obstructive Pulmonary Disease (COPD): Yes Hx Emphysema: Yes Hx Pneumonia: Yes - Neurological Hx Neurological Disorder: Yes Hx Transient Ischemic Attacks (TIA): Yes - HEENT Hx HEENT Disorder: Yes (eyeglasses) Other/Comment: visually impaired - Renal Hx Renal Disorder: Yes Hx Renal Failure: Yes - Endocrine/Metabolic Hx Endocrine Disorders: Yes Hx Diabetes Mellitus Type 2: Yes - Hematological/Oncological Hx Blood Disorders: No - Integumentary Hx Dermatological Disorder: Yes Other/Comment: multiple skin discolorations arms, fading old bruises b/l knees, multiple surgical scars to abd, and lcw from pacemaker insertion - Musculoskeletal/Rheumatological Hx Falls: Yes - Gastrointestinal Hx Gastrointestinal Disorders: Yes (ileostomy reversal 2010) - Genitourinary/Gynecological Hx Genitourinary Disorders: Yes Hx Urinary Tract Infection: Yes - Psychiatric Hx Substance Use: No - Surgical History Hx Cardiac Catheterization: Yes Hx Coronary Stent: Yes Hx Musculoskeletal Surgery: Yes (neck fusioncervical spine C 5&6) Hx Open Heart Surgery: Yes - Anesthesia Hx Anesthesia: Yes Hx Anesthesia Reactions: No Hx Malignant Hyperthermia: No - Suicidal Assessment Suicide Risk Precautions: Suicide Precautions Family/Social History - Physician Review Nursing Documentation Reviewed: Yes Family/Social History: No Known Family HX Smoking Status: Former Smoker Hx Alcohol Use: No Hx Substance Use: No Allergies/Home Meds Allergies/Adverse Reactions: Allergies clopidogrel bisulfate [From Plavix] Allergy (Verified 04/21/17 12:52) RASH Home Medications: Home Meds Medication Instructions Recorded Confirmed Atorvastatin [Lipitor] 20 mg PO DAILY 04/21/17 05/12/17 Carvedilol [Coreg] 12.5 mg PO BID 04/21/17 05/12/17 Diltiazem HCl [Cartia Xt] 180 mg PO DAILY 04/21/17 05/12/17 Docusate [Colace] 100 mg PO BID 04/21/17 05/12/17 Famotidine [Pepcid] 40 mg PO DAILY 04/21/17 05/12/17 Ferrous Sulfate [Feosol] 325 mg PO DAILY 04/21/17 05/12/17 Furosemide [Lasix] 40 mg PO BID 04/21/17 05/12/17 GlipiZIDE [Glucotrol] 5 mg PO DAILY 04/21/17 05/12/17 Levocetirizine Dihydrochloride 5 mg PO DAILY 04/21/17 05/12/17 [Xyzal] Linagliptin [Tradjenta] 5 mg PO DAILY 04/21/17 05/12/17 Lisinopril [Zestril] 20 mg PO DAILY 04/21/17 05/12/17 Montelukast [Singulair] 10 mg PO DAILY 04/21/17 05/12/17 Nitroglycerin [Nitrostat] 1 mg SL PRN PRN 04/21/17 05/12/17 Nortriptyline [Pamelor] 10 mg PO TID 04/21/17 05/12/17 Prasugrel [Effient] 10 mg PO DAILY 04/21/17 05/12/17 Sertraline [Zoloft] 50 mg PO DAILY 04/21/17 05/12/17 Warfarin [Coumadin] 4 mg PO DAILY 04/21/17 05/12/17 hydrALAZINE [Apresoline] 25 mg PO TID 04/21/17 05/12/17 Albuterol/Ipratropium [Duoneb 3 3 ml IN QID 05/12/17 05/12/17 mg/0.5 mg (3 ml) UD] Biotin [Biotin] 100 mg PO DAILY 05/12/17 05/12/17 Digoxin [Digitek] 250 mcg PO QOTHERDAY 05/12/17 05/12/17 Insulin Detemir [Levemir] 12 units SC HS 05/12/17 05/12/17 Prasugrel [Effient] 10 mg PO DAILY 05/12/17 05/12/17 Review of Systems - Physician Review All systems were reviewed & negative as marked: Yes - Review of Systems Constitutional: absent: Fevers, Night Sweats Respiratory: absent: SOB (had last night but currently resolved), Cough Cardiovascular: Chest Pain (pressure-like) Gastrointestinal: absent: Nausea, Vomiting Psychiatric: Depression Physical Exam Vital Signs Reviewed: Yes Vital Signs Temp Pulse Resp BP Pulse Ox 05/12/17 21:59 144/75 05/12/17 19:32 97.8 F 92 H 16 124/60 97 Temperature: Afebrile Blood Pressure: Normal Pulse: Regular Respiratory Rate: Normal Appearance: Positive for: Well-Appearing Pain Distress: None Mental Status: Positive for: Alert and Oriented X 3 - Systems Exam Head: Present: Atraumatic, Normocephalic Pupils: Present: PERRL Extroacular Muscles: Present: EOMI Conjunctiva: Present: Normal Mouth: Present: Moist Mucous Membranes Neck: Present: Normal Range of Motion Respiratory/Chest: Present: Clear to Auscultation, Good Air Exchange. No: Respiratory Distress, Accessory Muscle Use Cardiovascular: Present: Regular Rate and Rhythm, Normal S1, S2. No: Murmurs Abdomen: Present: Normal Bowel Sounds. No: Tenderness, Distention, Peritoneal Signs Back: Present: Normal Inspection Upper Extremity: Present: Other (left wrist razor cuts) Lower Extremity: Present: Normal Inspection. No: Edema Neurological: Present: GCS=15, CN II-XII Intact, Speech Normal Skin: Present: Warm, Dry, Normal Color. No: Rashes Psychiatric: Present: Alert, Oriented x 3, Normal Insight, Normal Concentration Medical Decision Making ED Course and Treatment: 05/12/17 20:20 Impression: 72 year old female with depression. Differential Diagnosis included but are not limited to: ACS vs. CHF vs COPD; Suicidal attempt Plan: -- EKG -- Chest X-ray -- Labs -- Urinalysis -- Reassess and disposition Prior Visits: Notes and results from previous visits were reviewed. Progress Notes: EKG: Ordered, reviewed, and independently interpreted the EKG. Rate : 90 BPM Rhythm : Pacemaker Interpretation : No ST-segment elevations or depressions, no T-wave inversions, normal intervals. Comparison : No previous EKG for comparison. 05/12/17 21:30 PROCEDURE: LACERATION REPAIR Performed by the emergency provider Location: Left wrist Length: 1 cm Description: clean wound edges, no foreign bodies Distal CMS: Normal. No deficits. Neurovascularly intact. Anesthesia: Lidocaine 1% Preparation: The wound was cleaned with NS and [place]. The area was prepped and draped in the usual sterile fashion. Exploration: The wound was explored and no foreign bodies were found. Procedure: The wound was closed with interrupted 4-0 nylon. There was good approximation. In total, 3 stitches were used. Post-Procedure: Good closure and hemostasis. The patient tolerated the procedure well and there were no complications. CSM remains intact. Post procedure dressing applied. 05/12/17 22:44 Patient did not take any of her medications today. She was having shortness of breathe with no wheezing, treated with Lasix 40mg IV and Duoneb and felt much better. Will give another duoneb treatment. Case discussed with Dr. Lebron who will place on her service. Case discussed with Dr. Simpson, patient's hide puller who agrees with current plan to admit to Telemetry. Agrees to lasix and no aspirin at this time since patient is on coumadin. - Lab Interpretations Lab Results: 05/12/17 21:00 05/12/17 21:00 Lab Results 05/12/17 21:00: PT 131.2 H, INR 11.45 H*, APTT 53.0 H 05/12/17 21:00: Alcohol, Quantitative < 10 05/12/17 21:00: Salicylates < 1 L, Acetaminophen < 10.0 L 05/12/17 21:00: Sodium 127 L, Potassium 4.3, Chloride 96 L, Carbon Dioxide 22, Anion Gap 14, BUN 13, Creatinine 0.8, Est GFR ( Amer) > 60, Est GFR (Non- Af Amer) > 60, Random Glucose 177 H, Calcium 9.2, Total Bilirubin 1.5 H, AST 39 H, ALT 43, Alkaline Phosphatase 112, Lactate Dehydrogenase 343, Total Creatine Kinase 26 L, Troponin I 0.53 H* D, NT-Pro-B Natriuret Pep 68211 H, Total Protein 6.6, Albumin 3.7, Globulin 2.9, Albumin/Globulin Ratio 1.3 05/12/17 21:00: WBC 11.4 H D, RBC 3.27 L, Hgb 9.8 L, Hct 28.8 L, MCV 88.1, MCH 30.0, MCHC 34.0, RDW 16.0 H, Plt Count 355, MPV 8.6, Gran % 80.0 H, Lymph % ( Auto) 13.7 L, [place] % (Auto) 6.0, Eos % (Auto) 0.0 L, Baso % (Auto) 0.3, Gran # 9.13 H, Lymph # 1.6, [place] # 0.7 H, Eos # 0.0, Baso # 0.03 I have reviewed the lab results: Yes - RAD Interpretation Radiology Orders: 05/12/17 20:28 CHEST PORTABLE [RAD] Stat - Medication Orders Current Medication Orders: Discontinued Medications Albuterol/Ipratropium (Duoneb 3 Mg/0.5 Mg (3 Ml) Ud) 3 ml IH STAT STA Stop: 05/12/17 21:43 Last Admin: 05/12/17 21:55 Dose: 3 ml Furosemide (Lasix) 40 mg IVP STAT STA Stop: 05/12/17 21:42 Last Admin: 05/12/17 21:59 Dose: 40 mg MAR Blood Pressure Document 05/12/17 21:59 AB (Rec: 05/12/17 22:[id number] Blood Pressure Blood Pressure (100/60-150/90) 144/75 IVP Administration Document 05/12/17 21:59 AB (Rec: 05/12/17 22:[address] [id number] Charges for Administration # of IVP Administrations 1 Lidocaine HCl (Lidocaine 1% (20ml)) 0 ml SC STAT STA Stop: 05/12/17 21:41 Last Admin: 05/12/17 22:01 Dose: 2 ml Subcutaneous Administrations Document 05/12/17 22:01 AB (Rec: 05/12/17 22:01 [id number]) Charges for Administration # of Subcutaneous Administrations 1 - Scribe Statement The provider has reviewed the documentation as recorded by the Yaniraibe Kay Dumont Provider Scribe Attestation: All medical record entries made by the Scribe were at my direction and personally dictated by me. I have reviewed the chart and agree that the record accurately reflects my personal performance of the history, physical exam, medical decision making, and the department course for this patient. I have also personally directed, reviewed, and agree with the discharge instructions and disposition. Disposition/Present on Arrival - Present on Arrival Any Indicators Present on Arrival: No History of DVT/PE: No History of Uncontrolled Diabetes: No Urinary Catheter: No History of Decub. Ulcer: No History Surgical Site Infection Following: None - Disposition Have Diagnosis and Disposition been Completed?: Yes Diagnosis: COPD (chronic obstructive pulmonary disease), Congestive heart failure, Chest pain, Elevated troponin, Suicide attempt Disposition: HOSPITALIZED Disposition Time: 23:13 Patient Plan: Admission Condition: FAIR
[2017-05-12 21:27] LABS: BASO # 0.03 K/mm3 (0.0-2.0); BASO % 0.3 % (0.0-3.0); GRAN # 9.13 (1.4-6.5); HEMATOCRIT 28.8 % (36.0-48.0); LYMPH # 1.6 (1.2-3.4); LYMPH % 13.7 % (22.0-35.0); MEAN CELL VOLUME 88.1 fl (80.0-105.0); MEAN PLATELET VOLUME 8.6 fl (7.0-11.0); MONO # 0.7 (0.1-0.6); WHITE BLOOD COUNT 11.4 10^3/ul (4.5-11.0)
[2017-05-12 21:33] LABS: ALB/GLOB RATIO 1.3 (1.1-1.8); ALKALINE PHOSPHATASE 112 U/L (38-126); ALT/SGPT 43 U/L (7-56); AST/SGOT 39 U/L (14-36); BILIRUBIN,TOTAL 1.5 mg/dL (0.2-1.3); BLOOD UREA NITROGEN 13 mg/dL (7-21); CALCIUM 9.2 mg/dL (8.4-10.5); CARBON DIOXIDE 22 mmol/L (21-33); CHLORIDE 96 mmol/L (98-107); GFR AFRICAN-AMERICAN > 60; GLUCOSE,RANDOM 177 mg/dL (70-110); POTASSIUM 4.3 mmol/L (3.6-5.0); SODIUM 127 mmol/L (132-148); TOTAL PROTEIN 6.6 g/dL (5.8-8.3)
[2017-05-12] MEDS ORDERED: Lidocaine 1% Inj (20ml) SC STA (21:40)
[2017-05-12] MEDS ORDERED: Albuterol-Ipratrop 3 mg / 0.5 (3 ml) UD IH STA ×2 (21:42→23:31)
[2017-05-12 21:58] LABS: TROPONIN I 0.53 ng/mL
[2017-05-12 22:26] LABS: INR 11.45 (0.93-1.08)
[2017-05-13 00:41] LABS: URINE BILIRUBIN SMALL (NEGATIVE); URINE BLOOD TRACE-INTACT (NEGATIVE); URINE GLUCOSE (UA) NEGATIVE (NEGATIVE); URINE KETONE NEGATIVE (NEGATIVE); URINE LEUKOCYTE ESTERASE TRACE Leu/uL (NEGATIVE); URINE PROTEIN 100 mg/dL (<30 mg/dL)
[2017-05-13 00:45] LABS: URINE APPEARANCE CLEAR (CLEAR); URINE COLOR YELLOW (YELLOW)
[2017-05-13 00:53] LABS: URINE BACTERIA MANY (NEG); URINE EPITHELIAL CELLS 0 - 2 /hpf (0-5)
[2017-05-13 02:33] VITALS: BMI 25.0
[2017-05-13] MEDS ORDERED: Phytonadione 10 MG in Sodium Chloride 0.9% 50 ML IV ONE (02:45)
--- NOTE | 2017-05-13 02:48 | CP.PCM.PN ---
Subjective - Date & Time of Evaluation Date of Evaluation: 05/13/17 Time of Evaluation: 02:46 - Subjective Subjective: S:Nurse calls with report of PT>320, INR>10. No obvious bleeding present. No complaints. Medical record was reviewed. Last Vital Signs 3 Temp 98.0 F 05/13/17 01:50 Pulse 98 H 05/13/17 01:50 Resp 20 05/13/17 01:50 BP 148/62 05/13/17 01:50 Pulse Ox 95 05/12/17 23:32 A:Coagulopathy. P: Vit K -10 mg IV x 1. Type and screen for possible FFP transfusion. Objective - Vital Signs/Intake and Output Vital Signs (last 24 hours): Temp Pulse Resp BP Pulse Ox 98.0 F 98 H 20 148/62 95 05/13/17 01:50 05/13/17 01:50 05/13/17 01:50 05/13/17 01:50 05/12/17 23:32 - Medications Medications: Current Medications Albuterol/Ipratropium (Duoneb 3 Mg/0.5 Mg (3 Ml) Ud) 3 ml IH [id number] ZAIRE Atorvastatin Calcium (Lipitor) 20 mg PO DAILY ZAIRE Carvedilol (Coreg) 12.5 mg PO BID ZAIRE Digoxin (Lanoxin) 0.25 mg PO Q48H ZAIRE Diltiazem HCl (Cardizem Cd) 180 mg PO DAILY ZAIRE Docusate Sodium (Colace) 100 mg PO BID ZAIRE Famotidine (Pepcid) 40 mg PO DAILY ZAIRE Ferrous Sulfate (Feosol) 324 mg PO DAILY ZAIRE Furosemide (Lasix) 40 mg PO BID ZAIRE Glipizide (Glucotrol) 5 mg PO DAILY ZAIRE Hydralazine HCl (Apresoline) 25 mg PO TID ZAIRE Phytonadione 10 mg/ Sodium (Chloride) 51 mls @ 100 mls/hr IV ONCE ONE Stop: 05/13/17 03:15 Insulin Detemir (Levemir) 12 unit SC HS ZAIRE Lisinopril (Zestril) 20 mg PO DAILY ZAIRE Loratadine (Claritin) 10 mg PO DAILY ZAIRE Montelukast Sodium (Singulair) 10 mg PO DAILY ZAIRE Nitroglycerin (Nitrostat Sl Tab) 0.4 mg SL Q5M PRN PRN Reason: chest pain Non-Formulary Medication (Biotin [Biotin]) 100 mg PO DAILY [facility] Non-Formulary Medication (Linagliptin [Tradjenta]) 5 mg PO DAILY ZAIRE Nortriptyline HCl (Pamelor) 10 mg PO TID ZAIRE Prasugrel (Effient) 10 mg PO DAILY ZAIRE Sertraline HCl (Zoloft) 50 mg PO DAILY [facility] - Labs Labs: PT > 320.0 SECONDS (9.4-12.5) H 05/13/17 01:15 INR > 10.00 (0.93-1.08) H* 05/13/17 01:15 APTT 53.0 Seconds (25.1-36.5) H 05/12/17 21:00
[2017-05-13] MEDS: Albuterol-Ipratrop 3 mg / 0.5 (3 ml) UD IH SCH ×4 (02:50→19:36)
[2017-05-13] MEDS ORDERED: Phytonadione 10 mg/ml Inj (Adult) ONE (02:59)
[2017-05-13 06:57] LABS: HEMATOCRIT 27.9 % (36.0-48.0); MEAN CELL VOLUME 88.6 fl (80.0-105.0); MEAN CORPUSCULAR HEMOGLOBIN 29.8 pg (25.0-35.0); MEAN CORPUSCULAR HGB CONC 33.7 g/dl (31.0-37.0); MEAN PLATELET VOLUME 8.7 fl (7.0-11.0); RED CELL DISTRIBUTION WIDTH 16.3 % (11.5-14.5); WHITE BLOOD COUNT 10.9 10^3/ul (4.5-11.0)
[2017-05-13 07:02] LABS: INR 12.4 (0.93-1.08)
[2017-05-13 07:20] LABS: BLOOD UREA NITROGEN 17 mg/dL (7-21); CALCIUM 9.3 mg/dL (8.4-10.5); CARBON DIOXIDE 21 mmol/L (21-33); CHLORIDE 97 mmol/L (98-107); CHOLESTEROL 135 mg/dL (130-200); GFR AFRICAN-AMERICAN 59; GLUCOSE,RANDOM 207 mg/dL (70-110); POTASSIUM 4.2 mmol/L (3.6-5.0); SODIUM 130 mmol/L (132-148)
[2017-05-13 07:28] LABS: TROPONIN I 0.62 ng/mL
--- NOTE | 2017-05-13 08:49 | RAD ---
HISTORY: psych COMPARISON: 04/18/2017 FINDINGS: LUNGS: No infiltrate. PLEURA: No significant pleural effusion identified, no pneumothorax apparent. CARDIOVASCULAR: CABG. Mild cardiomegaly. Congestive change. AICD. OSSEOUS STRUCTURES: No significant abnormalities. VISUALIZED UPPER ABDOMEN: Normal. OTHER FINDINGS: None. IMPRESSION: Congestive change without infiltrate. Possible congestive heart failure. AICD noted. CABG.
[2017-05-13] MEDS ORDERED: Phytonadione 10 mg/ml Inj (Adult) SC ONE (08:58)
[2017-05-13] MEDS ORDERED: Magnesium Sulfate 2 GM in Sodium Chloride 0.9% 100 ML IVPB ONE (09:46)
[2017-05-13] MEDS: diltiaZEM 180 mg/24 Hours CD Cap PO SCH (09:54)
[2017-05-13] MEDS: Non Formulary Medication (Linagliptin [Tradjenta] 5 MG) PO SCH (09:55)
[2017-05-13] MEDS ORDERED: Non Formulary Medication (Warfarin [Coumadin] 4 MG) PO SCH (10:00)
[2017-05-13] MEDS: Magnesium Oxide 400 mg Tab UD PO SCH (10:04)
[2017-05-13] MEDS: BIOTIN PO SCH (10:06)
--- NOTE | 2017-05-13 10:07 | CP.PCM.CON ---
<Michelle De Oliveira - Last Filed: 05/13/17 09:55> History of Present Illness - History of Present Illness History of Present Illness: Patient was seen at bedside, she continues on 1;1 supervision. This is patient' s 2nd hospitalization in the last month involving suicidal ideation. The last involved superficial scraping of her wrist, this time she used a razor blade that needed one stitch to close. She describes being increasingly despondent due to being evicted and having to move out of her apartment by the end of the month. She indicates that "I had no where to go and no one to turn to so it seemed like a good idea." She indicates that she is " just fine" now and has phone numbers she can call and she now knows what she needs to do. She refuses inpatient admission, says it is "too depressing." There is an element of manipulation and extreme black and white thinking. Patient is not psychiatrically cleared, will follow. Past Patient History - Infectious Disease Hx of Infectious Diseases: None - Past Social History Smoking Status: Former Smoker - CARDIAC Hx Cardiac Disorders: Yes Hx Angina: Yes Hx Cardia Arrhythmia: Yes (afib) Hx Hypercholesterolemia: Yes Hx Internal Defibrillator: Yes (left chest) Hx Pacemaker: Yes Other/Comment: coronary artery bypass graft - PULMONARY Hx Chronic Obstructive Pulmonary Disease (COPD): Yes - NEUROLOGICAL Hx Neurological Disorder: Yes Hx Transient Ischemic Attacks (TIA): Yes - HEENT Hx HEENT Problems: Yes (eyeglasses) Other/Comment: visually impaired - RENAL Hx Renal Failure: Yes - ENDOCRINE/METABOLIC Hx Diabetes Mellitus Type 2: Yes - HEMATOLOGICAL/ONCOLOGICAL Hx Blood Disorders: No - INTEGUMENTARY Hx Dermatological Problems: Yes Other/Comment: multiple skin discolorations arms, fading old bruises b/l knees, multiple surgical scars to abd, and lcw from pacemaker insertion - MUSCULOSKELETAL/RHEUMATOLOGICAL Hx Falls: Yes - GASTROINTESTINAL Hx Gastrointestinal Disorders: Yes (ileostomy reversal 2010) - GENITOURINARY/GYNECOLOGICAL Hx Genitourinary Disorders: Yes - PSYCHIATRIC Hx Depression: Yes Hx Substance Use: No - SURGICAL HISTORY Hx Cardiac Catheterization: Yes Hx Coronary Stent: Yes - ANESTHESIA Hx Anesthesia: Yes Hx Anesthesia Reactions: No Hx Malignant Hyperthermia: No Meds Allergies/Adverse Reactions: Allergies Allergy/AdvReac Type Severity Reaction Status Date / Time clopidogrel bisulfate Allergy RASH Verified 04/21/17 12:52 [From Plavix] - Medications Medications: Current Medications Albuterol/Ipratropium (Duoneb 3 Mg/0.5 Mg (3 Ml) Ud) 3 ml IH [id number] [facility] Last Admin: 05/13/17 07:31 Dose: 3 ml Atorvastatin Calcium (Lipitor) 20 mg PO DAILY [facility] Carvedilol (Coreg) 12.5 mg PO BID [facility] Digoxin (Lanoxin) 0.25 mg PO Q48H [facility] Diltiazem HCl (Cardizem Cd) 180 mg PO DAILY [facility] Docusate Sodium (Colace) 100 mg PO BID [facility] Famotidine (Pepcid) 40 mg PO DAILY [facility] Ferrous Sulfate (Feosol) 324 mg PO DAILY [facility] Furosemide (Lasix) 40 mg PO BID [facility] Glipizide (Glucotrol) 5 mg PO DAILY [facility] Hydralazine HCl (Apresoline) 25 mg PO TID [facility] Last Admin: 05/13/17 06:21 Dose: 25 mg Magnesium Sulfate 2 gm/ Sodium (Chloride) 104 mls @ 102 mls/hr IVPB ONCE ONE Stop: 05/13/17 10:47 Insulin Detemir (Levemir) 12 unit SC HS [facility] Lisinopril (Zestril) 20 mg PO DAILY [facility] Loratadine (Claritin) 10 mg PO DAILY [facility] Magnesium Oxide (Mag-Ox) 400 mg PO DAILY [facility] Montelukast Sodium (Singulair) 10 mg PO DAILY [facility] Nitroglycerin (Nitrostat Sl Tab) 0.4 mg SL Q5M PRN PRN Reason: chest pain Non-Formulary Medication (Biotin [Biotin]) 100 mg PO DAILY [facility] Non-Formulary Medication (Linagliptin [Tradjenta]) 5 mg PO DAILY [facility] Nortriptyline HCl (Pamelor) 10 mg PO TID [facility] Sertraline HCl (Zoloft) 50 mg PO DAILY [facility] Results - Vital Signs Recent Vital Signs: Last Vital Signs Temp 98.9 F 05/13/17 06:00 Pulse 95 H 05/13/17 06:21 Resp 18 05/13/17 06:00 BP 168/98 H 05/13/17 06:21 Pulse Ox 97 05/13/17 06:00 - Labs Result Diagrams: 05/13/17 06:00 05/13/17 06:00 Labs: Laboratory Results - last 24 hr 05/13/17 05/13/17 05/13/17 00:20 00:20 01:15 WBC RBC Hgb Hct MCV MCH MCHC RDW Plt Count MPV PT 142.3 H INR 12.40 H* Sodium Potassium Chloride Carbon Dioxide Anion Gap BUN Creatinine Est GFR ( Amer) Est GFR (Non-Af Amer) Random Glucose Calcium Magnesium Lactate Dehydrogenase Total Creatine Kinase Troponin I NT-Pro-B Natriuret Pep Triglycerides Cholesterol LDL Cholesterol Direct HDL Cholesterol TSH 3rd Generation Urine Color Yellow Urine Appearance Clear Urine pH 6.0 Ur Specific [place] 1.025 Urine Protein 100 H Urine Glucose (UA) Negative Urine Ketones Negative Urine Blood Trace-intact H Urine Nitrate Negative Urine Bilirubin Small H Urine Urobilinogen 1.0 H Ur Leukocyte Esterase Trace H Urine RBC 1 - 3 Urine WBC 1 - 3 Ur Epithelial Cells 0 - 2 Urine Bacteria Many Urine Opiates Screen Negative Urine Methadone Screen Negative Ur Barbiturates Screen Negative Ur Phencyclidine Scrn Negative Ur Amphetamines Screen Negative U Benzodiazepines Scrn Positive U Oth Cocaine Metabols Negative U Cannabinoids Screen Negative Blood Type Blood Type Confirm Antibody Screen BBK History Checked 05/13/17 05/13/17 05/13/17 03:15 03:35 06:00 WBC RBC Hgb Hct MCV MCH MCHC RDW Plt Count MPV PT INR Sodium 130 L Potassium 4.2 Chloride 97 L Carbon Dioxide 21 Anion Gap 17 BUN 17 Creatinine 1.1 Est GFR ( Amer) 59 Est GFR (Non-Af Amer) 49 Random Glucose 207 H Calcium 9.3 Magnesium Lactate Dehydrogenase 428 Total Creatine Kinase 27 L Troponin I 0.62 H* NT-Pro-B Natriuret Pep 90348 H Triglycerides 120 Cholesterol 135 LDL Cholesterol Direct 83 HDL Cholesterol 26 L TSH 3rd Generation Urine Color Urine Appearance Urine pH Ur Specific [place] Urine Protein Urine Glucose (UA) Urine Ketones Urine Blood Urine Nitrate Urine Bilirubin Urine Urobilinogen Ur Leukocyte Esterase Urine RBC Urine WBC Ur Epithelial Cells Urine Bacteria Urine Opiates Screen Urine Methadone Screen Ur Barbiturates Screen Ur Phencyclidine Scrn Ur Amphetamines Screen U Benzodiazepines Scrn U Oth Cocaine Metabols U Cannabinoids Screen Blood Type O POSITIVE Blood Type Confirm O POSITIVE Antibody Screen Negative BBK History Checked No verified bt 05/13/17 05/13/17 05/13/17 06:00 06:00 06:00 WBC 10.9 RBC 3.15 L Hgb 9.4 L Hct 27.9 L MCV 88.6 MCH 29.8 MCHC 33.7 RDW 16.3 H Plt Count 349 MPV 8.7 PT INR Sodium Potassium Chloride Carbon Dioxide Anion Gap BUN Creatinine Est GFR ( Amer) Est GFR (Non-Af Amer) Random Glucose Calcium Magnesium 1.6 L Lactate Dehydrogenase Total Creatine Kinase Troponin I NT-Pro-B Natriuret Pep Triglycerides Cholesterol LDL Cholesterol Direct HDL Cholesterol TSH 3rd Generation 0.98 Urine Color Urine Appearance Urine pH Ur Specific [place] Urine Protein Urine Glucose (UA) Urine Ketones Urine Blood Urine Nitrate Urine Bilirubin Urine Urobilinogen Ur Leukocyte Esterase Urine RBC Urine WBC Ur Epithelial Cells Urine Bacteria Urine Opiates Screen Urine Methadone Screen Ur Barbiturates Screen Ur Phencyclidine Scrn Ur Amphetamines Screen U Benzodiazepines Scrn U Oth Cocaine Metabols U Cannabinoids Screen Blood Type Blood Type Confirm Antibody Screen BBK History Checked <Beti Hackett - Last Filed: 05/14/17 08:54> History of Present Illness - History of Present Illness History of Present Illness: pt was seen, labs reviewed, discussed with NELLY and see my dictation note for more detailed information Meds - Medications Medications: Current Medications Albuterol/Ipratropium (Duoneb 3 Mg/0.5 Mg (3 Ml) Ud) 3 ml IH [id number] [facility] Last Admin: 05/14/17 07:54 Dose: 3 ml Atorvastatin Calcium (Lipitor) 20 mg PO DAILY [facility] Last Admin: 05/13/17 09:51 Dose: 20 mg Carvedilol (Coreg) 12.5 mg PO BID [facility] Last Admin: 05/13/17 17:14 Dose: 12.5 mg Digoxin (Lanoxin) 0.25 mg PO Q48H [facility] Diltiazem HCl (Cardizem Cd) 180 mg PO DAILY [facility] Last Admin: 05/13/17 09:54 Dose: 180 mg Docusate Sodium (Colace) 100 mg PO BID [facility] Last Admin: 05/13/17 17:13 Dose: 100 mg Famotidine (Pepcid) 40 mg PO DAILY [facility] Last Admin: 05/13/17 10:01 Dose: 40 mg Ferrous Sulfate (Feosol) 324 mg PO DAILY [facility] Last Admin: 05/13/17 09:51 Dose: 324 mg Furosemide (Lasix) 40 mg PO BID [facility] Last Admin: 05/13/17 17:13 Dose: 40 mg Glipizide (Glucotrol) 5 mg PO DAILY [facility] Last Admin: 05/13/17 09:51 Dose: 5 mg Hydralazine HCl (Apresoline) 25 mg PO TID [facility] Last Admin: 05/13/17 17:14 Dose: Not Given Insulin Detemir (Levemir) 12 unit SC HS [facility] Last Admin: 05/13/17 22:30 Dose: Not Given Lidocaine (Lidoderm) 1 ea TD DAILY [facility] Last Admin: 05/13/17 12:01 Dose: 1 ea Lisinopril (Zestril) 20 mg PO DAILY [facility] Last Admin: 05/13/17 09:52 Dose: 20 mg Loratadine (Claritin) 10 mg PO DAILY [facility] Last Admin: 05/13/17 09:51 Dose: 10 mg Magnesium Oxide (Mag-Ox) 400 mg PO DAILY [facility] Last Admin: 05/13/17 10:04 Dose: 400 mg Montelukast Sodium (Singulair) 10 mg PO DAILY [facility] Last Admin: 05/13/17 10:07 Dose: 10 mg Nitroglycerin (Nitrostat Sl Tab) 0.4 mg SL Q5M PRN PRN Reason: chest pain Non-Formulary Medication (Biotin [Biotin]) 100 mg PO DAILY [facility] Last Admin: 05/13/17 10:06 Dose: Not Given Non-Formulary Medication (Linagliptin [Tradjenta]) 5 mg PO DAILY [facility] Last Admin: 05/13/17 09:55 Dose: Not Given Nortriptyline HCl (Pamelor) 10 mg PO TID [facility] Last Admin: 05/13/17 17:13 Dose: 10 mg Sertraline HCl (Zoloft) 50 mg PO DAILY [facility] Last Admin: 05/13/17 09:52 Dose: 50 mg Results - Vital Signs Recent Vital Signs: Last Vital Signs Temp 97.9 F 05/14/17 06:00 Pulse 81 05/14/17 06:00 Resp 20 05/14/17 06:00 BP 114/63 05/14/17 06:00 Pulse Ox 97 05/14/17 06:00 - Labs Result Diagrams: 05/13/17 06:00 05/14/17 05:30 Labs: Laboratory Results - last 24 hr 05/13/17 05/13/17 05/13/17 06:00 16:47 21:45 PT INR Sodium Potassium Chloride Carbon Dioxide Anion Gap BUN Creatinine Est GFR ( Amer) Est GFR (Non-Af Amer) POC Glucose (mg/dL) 171 H 160 H Random Glucose Calcium Total Bilirubin AST ALT Alkaline Phosphatase Total Protein Albumin Globulin Albumin/Globulin Ratio Vitamin B12 702 Folate > 20.0 05/14/17 05/14/17 05:30 05:30 PT 16.7 H INR 1.51 H Sodium 132 Potassium 3.6 Chloride 96 L Carbon Dioxide 27 Anion Gap 13 BUN 16 Creatinine 1.0 Est GFR ( Amer) > 60 Est GFR (Non-Af Amer) 55 POC Glucose (mg/dL) Random Glucose 167 H Calcium 9.0 Total Bilirubin 1.4 H AST 71 H D ALT 44 Alkaline Phosphatase 103 Total Protein 6.1 Albumin 3.3 Globulin 2.7 Albumin/Globulin Ratio 1.2 Vitamin B12 Folate
--- NOTE | 2017-05-13 10:47 | HP ---
CHIEF COMPLAINT: Depression, chest pain, and shortness of breath. HISTORY OF PRESENT ILLNESS: Ms. Mallorie Francis is a 72-year-old female with past medical history of coronary artery disease, neck fusion, triple bypass, COPD, ICD pacemaker, defibrillator, kidney failure, reversal of ileostomy, irritable bowel syndrome, diarrhea, heart attacks, 3 times cardiac stents, asthma, and congestive heart failure, who came to the emergency room with the above, complaining of depression. The patient reports that she will be made homeless tomorrow and so she cut her left wrist last night due to depression. Also, the patient noticed experiencing pressure-like chest pain with the association of shortness of breath. She had experienced the chest pain in the emergency room and feeling shortness of breath. No fever. No chills, nausea, vomiting or diarrhea. No hematemesis or hematochezia. No headache. No dizziness. PAST MEDICAL HISTORY: Angina, atrial fibrillation, heart murmur, internal defibrillator, pacemaker, CABG, asthma, COPD, emphysema, pneumonia, TIA, renal failure, diabetes mellitus, multiple skin discoloration, and history of fall. FAMILY HISTORY: Father and mother, noncontributory. HABITS: Former smoker. No smoking, no drug, no ethanol now. ALLERGIES: THE PATIENT IS ALLERGIC WITH PLAVIX. HOME MEDICATIONS: Lipitor, Coreg, diltiazem, Colace, Pepcid, Feosol, Lasix, Glucotrol, Xyzal, Tradjenta, Zestril, INR is high so I held the Coumadin, Singulair, Nitrostat, Effient, Zoloft, and Coumadin. REVIEW OF SYSTEMS: The patient is seen and examined at the bedside in the ER having a dressing on the right wrist. No fevers. No chills. No nausea, vomiting or diarrhea. No hematuria. No hematochezia. No swelling of the leg. PHYSICAL EXAMINATION: VITAL SIGNS: Temperature 97.8, pulse 92, respiratory rate 16, blood pressure 124/60, and pulse oximetry 97%. HEENT: Head is normocephalic and atraumatic. Eyes; PERRLA. Extraocular muscles are intact. Conjunctivae clear. Nose patent. Mucous membranes moist. NECK: Supple. No carotid bruit, JVD or thyromegaly. CHEST: Bilaterally symmetrical. HEART: S1 and S2 positive. LUNGS: Clear to auscultation. ABDOMEN: Soft. Bowel sounds present. No organomegaly. EXTREMITIES: No edema. No cyanosis. NEUROLOGIC: The patient is awake and alert. Moving all 4 extremities. No focal deficits. LABORATORY DATA: White blood cells 11.4, hemoglobin 9.8, hematocrit 28.8, and platelets 355. Sodium 127, potassium 4.2, BUN noted , creatinine 0.8, and glucose 177. ASSESSMENT AND PLAN: Ms. Mallorie Francis is a [id number] lady with leukocytosis, anemia, hyponatremia, hypochloremia, and hyperglycemia, who came with coagulopathy, INR is high, I held the Coumadin, with chest pain. Cardiac enzymes done. Consult with a dredge master. Chronic obstructive pulmonary disease, congestive heart failure, chest pain, elevated troponin, and suicidal ideation. Discussion done with Dr. Sathya Sheets. Pulmonary, Neurology, and Psychiatry consult call. Start oral medication holding Coumadin. Gastrointestinal and deep venous thrombosis prophylaxis. Repeat labs. We will follow up. Tanisha Lebron MD MTDD
--- NOTE | 2017-05-13 11:40 | CT ---
PROCEDURE: CT HEAD WITHOUT CONTRAST. HISTORY: r/o bleed COMPARISON: 04/21/2017 TECHNIQUE: Axial computed tomography images were obtained through the head/brain without intravenous contrast. Radiation dose: Total exam DLP = 678.13 mGy-cm. This CT exam was performed using one or more of the following dose reduction techniques: Automated exposure control, adjustment of the mA and/or kV according to patient size, and/or use of iterative reconstruction technique. FINDINGS: HEMORRHAGE: No intracranial hemorrhage. BRAIN: No mass effect or edema. Mild diffuse age-appropriate cerebral atrophy. Mild periventricular white matter lucency with patchy foci of deep and subcortical white matter lucency, consistent with age related microvascular ischemic change. No evidence of acute infarct. VENTRICLES: Unremarkable. No hydrocephalus. CALVARIUM: Unremarkable. PARANASAL SINUSES: Unremarkable as visualized. No significant inflammatory changes. MASTOID AIR CELLS: Unremarkable as visualized. No inflammatory changes. OTHER FINDINGS: None. IMPRESSION: No intracranial mass, hemorrhage or evidence of acute infarct. Age-appropriate involutional change. No interval change compared to 04/21/2017.
[2017-05-13] MEDS: Lidocaine 5% Patch TD SCH (12:01)
[2017-05-13 13:46] LABS: FOLATE > 20.0 ng/mL
--- NOTE | 2017-05-13 14:56 | PN ---
DATE: SUBJECTIVE: The patient is a 72-year-old female. The patient is seen and examined at the bedside. She is on one-to-one for suicidal attempt. No nausea, vomiting or diarrhea. No hematuria or hematochezia. No headache. No dizziness. Chest pain is better. Shortness of breath is better. Coughing is better. Having a dressing on the wrist because she tried to cut her wrist with a razor and has one stitch. PHYSICAL EXAMINATION: VITAL SIGNS: Temperature 98.6, pulse 100, blood pressure 147/71, and respiratory rate 18, HEENT: Head normocephalic, atraumatic. Eyes, PERRLA. Extraocular muscles are intact. Conjunctivae clear. Nose patent. Mucous membranes moist. NECK: Supple. No carotid bruits. No JVD or thyromegaly. CHEST: Bilaterally symmetrical. HEART: S1 and S2 positive. LUNGS: Clear to auscultation. ABDOMEN: Soft. Bowel sounds present. No organomegaly. EXTREMITIES: Lower extremities, no edema. No cyanosis. Upper extremity has a dressing on the wrist, is tender. NEUROLOGIC: The patient is awake and alert. Moving all 4 extremities. No focal deficit. MEDICATIONS: Hydralazine, Biotin, Cardizem, loratadine, docusate, Coreg, DuoNeb, ferrous sulfate, glipizide, insulin, lidocaine, Tradjenta, Zoloft, and Zestril. LABORATORY DATA: White blood cell is 10.9, hemoglobin 9.4, hematocrit 27.9, and platelets 349. Sodium 130, potassium 4.2, BUN 17, creatinine 1.1, glucose 207, and magnesium 1.7. ASSESSMENT AND PLAN: Ms. Mallorie Francis is a 72-year-old lady with hyponatremia, hypochloremia, hyperglycemia, hypomagnesemia, abnormal liver function test, troponin is trending up, congestive heart failure, history of leukocytosis improving, anemia, and coagulopathy, got 2-3 doses of vitamin K. CAT scan of the head is done to make sure that she is not bleeding. Hematuria, urinary tract infection. Seen by psychiatrist. Discussion done with Dr. Beti Hackett. States that she is on one-to-one supervision with her second hospitalization in the last month involving suicidal attempt and ideation. Last involved superficially of her wrist. At this time, she used a razor blade that needed one stitch to close. Social issues off of placement. I have discussion done with rn social workMeryl, pillowcase turner Emily, and physician. The patient has history of her cardiac arrhythmias, hypercholesteremia, internal defibrillator, coronary artery bypass graft, chronic obstructive pulmonary disease, transient ischemic attack, renal insufficiency, diabetes mellitus type 2, history of ileostomy and reversal, depression, cardiac catheterization, and coronary stents. Manager Storage is on the case awaiting for the input. Discussion done with Jennifer, nurse practitioner. She will give third dose of vitamin K. Plan was to give FFP, but because of the patient's bad cardiac history, we will wait for compressor operator's opinion. Gastrointestinal and deep venous thrombosis prophylaxis. Repeat labs. We will follow up. Tanisha Lebron MD MTDD
--- NOTE | 2017-05-13 20:03 | CARD ---
APPROVED REPORT EKG Measurement Heart [id number] <Conclusion> Atrial sensed, ventricular paced rhythm
--- NOTE | 2017-05-13 21:17 | CON ---
DATE: HISTORY OF PRESENT ILLNESS: In short, the patient is 72-year-old female with not known previous psychiatric history. The patient has history of questionable depression as well as delirium, as well as adjustment disorder. The patient was recently evicted from her house. The patient has one psychiatric admission which took place here in [place] on 04/18/2017. The patient was admitted to the psychiatric inpatient unit status post self-inflicted laceration of her wrist. This time, the patient came to the emergency room because again she cut her wrist, and the patient claimed that it was suicidal attempt. The patient was admitted on the medical side for shortness of breath of breath as well as pressure-like chest pain. Psych consult was called for evaluation of self-inflicted laceration of her upper extremities as well as depressive symptoms. The patient was seen and examined. The patient is very familiar to this business writer from the previous admission to the psychiatric inpatient unit, the patient had similar presentation. This business writer will remind the patient was transferred from the psychiatric inpatient unit to the medical floor last admission status post fall. After that, the patient was discharged from the medical side. The patient said that she was not followed up with outpatient psychiatrist and she was not taking any psychotropic medications. The patient said that her son did not want to accept her. Of note, the patient's adoptive son was willing to accept the patient last admission, but he changed his mind. The patient reported that she felt depressed prior to coming to the hospital. She needed to be packing her belongings because she was in the process of eviction of her house. The patient reported the day before yesterday she was feeling overwhelmed. She was feeling that nobody cares about her, why should she care about herself. She found a razor blade and cut her wrist. The patient has multiple lacerations on the right upper extremities, but it is very superficial, but it is multiple more than 20, and the left wrist needed to have 3 sutures. The patient has bandage on the left wrist. The patient has no remorse over her act. The patient is superficially cooperative. The patient said that she wants to stay in the snf, she does not want to stay in the hospital. The patient reported that she was feeling very depressed and overwhelmed. Again, she declined the offer to stay into the psychiatric inpatient unit. This business writer had prolonged conversation with Dr. Lebron about disposition plan and about the patient's presentation. The patient is not psychiatrically cleared as of now. The patient is on one-to-one. VITAL SIGNS: Reviewed. The patient is tachycardic, pulse is , blood pressure 147/71. MEDICATIONS: Reviewed; Duoneb, Lipitor, Coreg, digoxin, Cardizem, Colace, Pepcid, Feosol, Lasix, glipizide, hydralazine, insulin, , lisinopril, Claritin, magnesium oxide, magnesium sulfate, Singulair, nitroglycerin, Biotin, nortriptyline 10 mg 3 times a day, this business writer is not sure why she is taking nortriptyline and the patient is on Zoloft 50 mg. LABORATORY DATA: Labs reviewed. Coagulation, INR 12.40. Urinalysis showed again leukocyte esterase high. Toxicology, positive for benzodiazepines. MENTAL STATUS EXAMINATION: The patient appears to be alert, dramatic, intermittent eye contact. Speech was loud, overproductive. Mood described "I feel better now, I am willing to go to snf." Thought process was coherent, but mildly circumstantial. Thought content, the patient denied visual, auditory, or tactile hallucinations. Denied paranoid ideation. The patient denied thoughts of harming herself or others at present moment, but 2 days ago, the patient tried to kill herself. Insight and judgment limited. Impulses are unpredictable. IMPRESSION: As per history, the patient has mood disorder, rule out early stage of dementia, rule out adjustment disorder. PLAN: This business writer offered the patient to stay into the psychiatric inpatient unit. The patient declined that offer because she felt like psychiatric admission will be more depressing for her. The patient denied any thoughts of harming herself or others, but still the patient is status post suicidal attempt, will need to observe her on the medical side. Social work evaluation and we will see if the patient mets the criteria for involuntary commitment screening. Case was discussed in detail with Dr. Lebron. Should you have any questions give me a call back. Thank you very much for letting me participate in the care of your patient. Beti Hackett MD Psychiatric # [id number]
[2017-05-13] MEDS: Insulin Detemir 100 units/ml Vial (Levemir) SC SCH (22:30)
--- NOTE | 2017-05-13 23:17 | CON ---
DATE: 05/13/2017 REQUESTING PHYSICIAN: Tanisha Lebron MD REASON FOR CONSULTATION: Chest pain and dyspnea. HISTORY OF PRESENT ILLNESS: This is a 72-year-old woman, well-known to us with a history of coronary disease status post prior bypass surgery, multivessel PCI, severe LV dysfunction, congestive heart failure as well as severe depression recently, admitted to the emergency room after an attempted self injury. She slashed her left wrist last evening causing a large laceration and required sutures. She is complains of chest pain and dyspnea as well. She has been under a great deal of stress lately due to potential of being homeless. She last underwent cardiac catheterization several months ago, at which time repeat PCI of the RCA was performed. PAST MEDICAL HISTORY: Notable for the problems mentioned above. She has history of COPD, prior ICD implant, renal insufficiency, prior ileostomy for irritable bowel syndrome and subsequent reversal. She has a history of atrial fibrillation. She was recently admitted for depression as well. MEDICATIONS: At home include Lipitor, carvedilol, diltiazem, Colace, Pepcid, iron supplements, Lasix, Glucotrol, Tradjenta, Zestril, Singulair, Effient, Zoloft, and Coumadin. ALLERGIES: SHE HAS HAD A REACTION TO PLAVIX IN THE PAST. SOCIAL HISTORY: She is a former smoker. She denies alcohol use. FAMILY HISTORY: Parent are from age related illness. REVIEW OF SYSTEMS: 10-point review systems is otherwise unremarkable. PHYSICAL EXAMINATION: GENERAL: She is a middle-aged woman, appears comfortable at rest. VITAL SIGNS: Her blood pressure is 138/70 with pulse of 86 and sinus, respirations 16. She is afebrile. HEENT: Normocephalic, atraumatic. NECK: Supple. No JVD noted. CHEST: Few scattered rhonchi heard. HEART: PMI displaced laterally. Systolic murmur noted in left sternal border. ABDOMEN: Soft, nontender with normoactive bowel sounds. EXTREMITIES: No edema. The left wrist has a dressing present. SKIN: Warm and dry. PSYCHIATRIC: Appears to be in fairly good spirits today. NEUROLOGIC: Alert and oriented x3. No gross motor sensory deficits appreciable. DIAGNOSTIC DATA: CK is 26 with troponin of 0.53, BUN and creatinine are 13 and 0.8, potassium 4.3, sodium is 127. Hemoglobin and hematocrit 9.4 and 27.9 with a white count 10.9, platelet count of 349,000. INR is 12.4. Coumadin is currently on hold. BNP is at 26,600. Electrocardiogram reveals sinus rhythm with nonspecific ST-T abnormalities. Chest x-ray reveals enlarged cardiac silhouette with ICD system in place. Mild bilateral congestive changes are noted. IMPRESSION: 1. Chest pain, possible angina with known diffuse coronary artery disease status post prior bypass surgery, multivessel percutaneous coronary intervention. 2. Depression with recent serious self-injury. 3. Severe left ventricular dysfunction. 4. Rest of problems as noted. RECOMMENDATIONS: Continue telemetry monitoring as advised. Coumadin is on hold pending improvement of INR and the target level between 2.0-2.5 would be advisable. Obviously continued anticoagulant therapy is somewhat potentially dangerous if her psychological condition is not improved and risk of self injury persists. Aspirin and Effient therapy will be continued for her recent stent procedure. Psychological counseling and evaluation is pending. From a cardiac standpoint, she appears stable for transfer to an inpatient psychiatric unit if that is in her best interest. Thank you for the consultation. We will be happy to follow. Dwight Patiño MD [facility]
[2017-05-14] MEDS: Albuterol-Ipratrop 3 mg / 0.5 (3 ml) UD IH SCH ×4 (01:41→19:29)
--- NOTE | 2017-05-14 03:07 | CON ---
PULMONARY CONSULTATION DATE: 05/13/2017 REFERRING PHYSICIAN: Tanisha Lebron MD REASON FOR CONSULTATION: Chronic lung disease, cardiomyopathy, and may have sleep apnea syndrome. HISTORY OF PRESENT ILLNESS: This is a 72-year-old female known to me from previous admission. Noncompliance with the followup, and known to have coronary artery disease, cardiomyopathy, pulmonary hypertension, atrial fibrillation, chronic obstructive lung disease, diabetes, has a history of suicidal attempt in the past, and recently had some social issue where she has to empty the apartment where she is living. She is not getting along with the family from , was very depressed, try to cut herself, start bleeding, got scared and called ambulance, and was brought into ER where she required 3 stitches on the wrist. Presently under one-to-one supervision and seen by Psychiatry. Presently claims she does not have suicidal idea. She is okay. Does have some cough and shortness of breath. No nausea or vomiting. No diarrhea. No leg pain or leg swelling. PAST MEDICAL HISTORY: As per history of present illness. FAMILY HISTORY: No significant cardiopulmonary disease reported. SOCIAL HISTORY: Former smoker. Denied any alcohol use. ALLERGIES: ALLERGIC TO PLAVIX. MEDICATIONS: She is on hydralazine 20 mg 3 times a day, Biotin 100 mg daily, Claritin 10 mg daily, Cardizem CD 180 mg daily, Colace 100 mg twice a day, Coreg 12.5 mg twice a day, DuoNeb q.6 hours, ferrous sulfate 324 mg daily, glipizide 5 mg daily, digoxin 0.2 mg q.48 hours, Lasix 40 mg twice a day, Levemir 12 units subcutaneously at bedtime, Lidocaine patch at affected area, Tradjenta 5 mg daily, Lipitor 20 mg daily, magnesium oxide 400 mg daily, Nitrostat 0.4 mg p.r.n. basis, nortriptyline 10 mg 3 times a day, Pepcid 40 mg daily, Singulair 10 mg daily, Zestril 20 mg daily, AND Zoloft 50 mg daily. REVIEW OF SYSTEMS: No headache. No rhinitis. Mild cough. No shortness of breath. No chest pain. No nausea. No vomiting. No diarrhea. No leg pain or leg swelling. Has an ice bag on the left wrist, has 3 stitches done in the ER, and also has a superficial cullen in the right wrist. PHYSICAL EXAMINATION: GENERAL: In no acute distress. VITAL SIGNS: Temperature is 98, heart rate is 89, respiratory rate is 20, blood pressure is 113/54, and pulse ox is 97% on nasal cannula. HEENT: Moist mucous membrane. Crowded airway. Mallampati score is 4. NECK: Supple. No JVD. LUNGS: Has a few scattered rhonchi. HEART: S1 and S2. ABDOMEN: Soft and nontender. No organomegaly. EXTREMITIES: There is no edema. Left wrist has stitches, has ice bag on it. Right wrist has multiple superficial cuts. NEUROLOGIC: Awake, alert, and follow simple commands. LABORATORY DATA: Shows hemoglobin is 9.4, hematocrit is 27.9, WBC is 10.9, and platelet count is 349. INR is 12.4. Sodium is 130, potassium is 4.2, chloride is 97, bicarbonate is 21, BUN is 17, creatinine is 1.1, glucose is 171, magnesium is 1.6, iron is 62, and LDH is 428. Troponin is 0.62. ProBNP is 26,600. B12 is 702, folate more than 20, and TSH 0.98. She has CAT of the head done, which shows no intracranial mass, hemorrhage, or evidence of acute infarct. Chest x-ray done shows congestive changes, no infiltrate, and no effusion. IMPRESSION AND PLAN: Suicidal attempt, coagulopathy with taking overdose of Coumadin, chronic obstructive lung disease, may have obstructive sleep apnea syndrome, cardiomyopathy, coronary artery disease, history of coronary stent, pulmonary hypertension, diabetes, hypertension, and depression. Agree with Dr. Lebron with the present management. Keep head elevated at 45 degrees. Refused to use CPAP/BiPAP. I had long discussion with the patient about the incident, she regrets and claiming she is not suicidal anymore. Followup INR in the morning. Continue bronchodilator and keep head at 45 degrees. Continue diuretics. Followup labs in the morning. Thank you and we will follow with you. Rosina Gabriel MD
[2017-05-14 06:19] LABS: INR 1.51 (0.93-1.08)
[2017-05-14 06:56] LABS: BLOOD UREA NITROGEN 16 mg/dL (7-21)
[2017-05-14 06:57] LABS: ALB/GLOB RATIO 1.2 (1.1-1.8); ALKALINE PHOSPHATASE 103 U/L (38-126); ALT/SGPT 44 U/L (7-56); AST/SGOT 71 U/L (14-36); BILIRUBIN,TOTAL 1.4 mg/dL (0.2-1.3); CARBON DIOXIDE 27 mmol/L (21-33); CHLORIDE 96 mmol/L (98-107); GFR AFRICAN-AMERICAN > 60; GLUCOSE,RANDOM 167 mg/dL (70-110); POTASSIUM 3.6 mmol/L (3.6-5.0); SODIUM 132 mmol/L (132-148); TOTAL PROTEIN 6.1 g/dL (5.8-8.3)
[2017-05-14] MEDS: BIOTIN PO SCH (09:13)
[2017-05-14] MEDS: Non Formulary Medication (Linagliptin [Tradjenta] 5 MG) PO SCH (09:13)
[2017-05-14] MEDS: Magnesium Oxide 400 mg Tab UD PO SCH (09:27)
[2017-05-14] MEDS: Lidocaine 5% Patch TD SCH (09:28)
[2017-05-14] MEDS: diltiaZEM 180 mg/24 Hours CD Cap PO SCH (09:28)
[2017-05-14] MEDS: Potassium Chloride 10 mEq ER Tab PO SCH (12:07)
[2017-05-14 13:28] LABS: INR 1.45 (0.93-1.08)
--- NOTE | 2017-05-14 13:29 | PQF CHF ---
This form is a permanent part of the medical record Dr. Patiño, Patient with hx CHF. H&P notes severe LV dysfunction, BNP 17,900 going to 26,600 , CXR with B/L congestive changes, possible CHF, treated with lasix. Please document specifically if CHF was present on admission (type/severity), ruled out. Clarification of your documentation is requested to better reflect the severity of illness and intensity of treatment of your patient. Indicators present [x] Diagnosis of CHF and/or history of CHF [x] BNP > 200 [] Imaging Finding of Pulmonary Edema /Pleural Effusions [] Fluid/Volume Overload [] Pitting edema [] Ejection Fraction < 40% (Indicative of Systolic Heart Failure) [] Ejection Fraction > 40% (Indicative of Diastolic Heart Failure) [x] Dyspnea / Orthopenea / Paroxysmal Nocturnal Dyspnea [] Other: Location in the medical record that reflects the above clinical findings: [] Treatment Provided: [] PHYSICIAN'S RESPONSE Based on your medical judgment of the clinical indicators outlined above, are you treating this patient for a known or suspected: [] Acute CHF [] Systolic [] Diastolic [] Combined [] Chronic CHF [] Systolic [] Diastolic [] Combined [x] Acute on Chronic CHF [x]Systolic [] Diastolic [] Combined [] CHF due hypertension [] Acute systolic []Chronic systolic [] Acute/ chronic systolic [] Other, please indicate: [] [] If Unable to Determine, please check the box, sign and date. Present On Admission (POA) Indicator: [x] Present at the time of admission [] Not present at the time of admission [] Clinically Undetermined In responding to this query, please exercise your independent professional judgment. The fact that a question is asked does not imply that any particular answer is desired or expected. Thank you for your clarification on this documentation. If you have any questions please call:[ ] * Thank you, [ ]Raegan Booth [facility] #[id number] continuous mining machine [employer]
[2017-05-14] MEDS: Digoxin 250 mcg (0.25 mg) Tab PO SCH (14:30)
--- NOTE | 2017-05-14 15:21 | PN ---
DATE: 05/14/2017 SUBJECTIVE: The patient is seen lying in bed on telemetry. She is currently comfortable on and better spirits. She denies any chest pain or dyspnea at present. CURRENT MEDICATIONS: Her current medications remain hydralazine 25 mg t.i.d., diltiazem 180 mg daily, Claritin, Colace, carvedilol 12.5 mg b.i.d., Coumadin, DuoNeb inhaler, Effient 10 mg daily, ferrous sulfate, glipizide 5 mg daily, digoxin 0.25 mg every other day, potassium supplement, Lasix 40 mg b.i.d., Levemir insulin, Tradjenta, Lipitor 20 mg daily, nortriptyline 10 mg t.i.d., Pepcid, Singulair, Zestril 20 mg daily, and Zoloft 50 mg daily. OBJECTIVE: GENERAL: She is a middle-aged woman who appears comfortable at rest. VITAL SIGNS: Her blood pressure is 124/56 with pulse of 80, ventricular paced and respirations are 14. She is afebrile. HEENT: No JVD. CHEST: Few scattered rhonchi heard. HEART: PMI displaced laterally with soft tones noted. ABDOMEN: Soft and nontender with normoactive bowel sounds. EXTREMITIES: No edema. DIAGNOSTIC DATA: INR is 1.45. Glucose is 296, BUN and creatinine are 16 and 1.0, and potassium of 3.6. IMPRESSION: 1. Recent chest pain, no evidence of acute cardiac ischemia, status post remote bypass surgery and multivessel percutaneous coronary intervention. 2. Severe left ventricular dysfunction. 3. History of depression with recent self injury. RECOMMENDATIONS: Her current cardiac medications should continue. Her warfarin has been resumed and should be titrated to an INR of 2.0 to 2.5. Psychological counseling should continue. Sodium and fluid restrictions are advised as well. We will be happy to follow her and make further recommendations as appropriate. Dwight Patiño MD
[2017-05-14] MEDS: cefTRIAXone 2 GM IN NS 2 GM/100 ML BAG IVPB SCH (16:39)
[2017-05-14] MEDS: Insulin Lispro (humaLOG) LOW Coverage SC SCH ×2 (17:38→22:32)
--- NOTE | 2017-05-14 19:06 | PN ---
DATE: 05/14/2017 PULMONARY PROGRESS NOTE REFERRING PHYSICIAN: Tanisha Lebron MD. SUBJECTIVE: She is lying in the bed, sleepy, arousable, decreased cough and shortness of breath. No nausea, no vomiting, and no diarrhea. Left wrist is healing well. No leg pain or leg swelling. OBJECTIVE: GENERAL: In no acute distress. VITAL SIGNS: Temperature is 98, heart rate is 80, respiratory rate is 18, blood pressure 124/55, pulse ox is 97% on nasal cannula. HEENT: Moist mucous membranes. Crowded airway. Mallampati score is 4. NECK: Supple. No JVD. LUNGS: Has a fair airflow with few rhonchi. HEART: S2, S2. ABDOMEN: Soft, nontender. No organomegaly. EXTREMITIES: No edema. Left wrist is healing well. NEUROLOGICAL: Sleepy, arousable, follows simple commands. MEDICATIONS: She is on hydralazine 25 mg q. 8 hours, Cardizem CD 180 mg daily, Claritin 10 mg daily, Colace 100 mg twice a day, Coreg 12.5 mg twice a day, Coumadin is on hold, DuoNeb q. 6 hours, Effient 10 mg daily, ferrous sulfate 325 mg daily, glipizide 5 mg daily, insulin coverage, potassium supplement 10 mEq daily, digoxin 0.25 mg q. 48 hours, Lasix 40 mg twice a day, Levemir 12 units subcu at bedtime, Lidoderm patch to the affected area, Tradjenta 5 mg daily, Lipitor 20 mg daily, magnesium oxide 400 mg daily, nitroglycerin p.r.n. basis, nortriptyline 10 mg 3 times a day, Pepcid 40 mg daily, Singulair 10 mg daily, Zestril 20 mg daily, Zofran p.r.n. basis, Zoloft 50 mg daily round the clock. LABORATORY DATA: Reviewed. Today's INR is 1.45. Urine culture has a gram-negative diamond. IMPRESSION AND PLAN: Status post suicidal attempt by trying to cut her wrist, coagulopathy by taking overdose, chronic obstructive lung disease, atrial fibrillation, obstructive sleep apnea syndrome, coronary artery disease, history of coronary stent, pulmonary hypertension, diabetes, hypertension, depression. Pulmonary point of view, doing okay. May continue anticoagulation again. Psychiatry followup. Sleep apnea precaution. Keep head at 45 degrees. Bronchodilator. Has a urinary tract infection; we will start antibiotics. Thank you and we will follow with you. Rosina Gabriel MD
--- NOTE | 2017-05-14 19:31 | PN ---
DATE: FOLLOWUP NOTE SUBJECTIVE: The patient initially was admitted on the medical side for evaluation of chest pain as well as shortness of breath. The patient also cut her wrist prior to coming to the hospital. The patient claimed that she wanted to end up her life prior to coming to the hospital. This web content writer is very familiar with this patient from the previous admission to the psychiatric inpatient unit, which took place here in [place], it was 04/21/2017. The patient had episode of syncope and was transferred to the medical side. After that, the patient was discharged from the medical side. The patient was noncompliant with the medication, was not compliant with the followup appointment prior to coming to the hospital this admission. The patient cut her wrist again. This time, the patient required to have 3 sutures. The patient has no support in the community. The patient will be evicted from the house tomorrow. The patient was followed up today. The patient presented to be in denial. The patient said that she does not feel like she wants to kill herself anymore. The patient was concentrating on her stuff in her apartment which she needs to put in the storage tomorrow. The patient said that she will not try to kill herself, but this web content writer would like to emphasize the fact that for the past month the patient cut her wrist twice . Initially, it was very superficial. Second time, during this admission, the patient cut her wrist and required sutures. This web content writer offered the patient admission to the Psychiatric Inpatient Unit, but she declined that offer. VITAL SIGNS: Reviewed. Temperature 98.1, pulse is 80, blood pressure 124/55, and respiration 18. MEDICATIONS: Reviewed. The patient is on DuoNeb, Lipitor, Coreg, Rocephin, digoxin, Cardizem, Colace, Pepcid, Feosol, Lasix, Glucotrol, hydralazine, Levemir insulin, Lidoderm, Zestril, Claritin, Nitrostat, Biotin, and Pamelor. This web content writer is not sure why she is taking Pamelor. Potassium chloride, Effient, and Zoloft 50 mg daily. LABORATORY DATA: Labs reviewed. MENTAL STATUS EXAMINATION: The patient is superficially cooperative, intermittent eye contact, loud. Speech was overproductive. Mood described, "I am fine, I want to go." Affect was constricted, irritable. Thought process was circumstantial. Thought content; the patient denied visual, auditory, or tactile hallucinations, but the patient seems to be mildly disorganized. Insight and judgment are very limited. Impulses are not controlled. IMPRESSION: Most likely, the patient has impulse control disorder as well as major depressive disorder. The patient is status post self-inflicted wrist cut. The patient required to have 3 sutures. The patient has multiple medical issues, please see notes for more detailed information. PLAN: This web content writer offered the patient admission to the Psychiatric Inpatient Unit, but the patient declined that offer. The patient wanted to be discharged, but this web content writer has impression that the patient needs to be in the hospital because this is second time where the patient cut her wrist for the past month. If the patient would refuse to stay in the hospital, we will initiate [facility] screening process. The patient has no support in the community, the patient will be homeless. The patient's currently on one-to-one. Zoloft will be continued. This web content writer is not sure why she is taking Pamelor. Discussed with the medical staff and nursing staff. The patient psychiatrically not stable to be discharged. Should you have any questions, give me a call back. Thank you very much for letting me participate in care of your patient. Beti Hackett MD
--- NOTE | 2017-05-14 20:30 | PN ---
SUBJECTIVE: The patient is examined at the bedside, still is on one-to-one. No nausea, vomiting, or diarrhea. No hematuria or hematochezia. No headache. No dizziness. No chest pain or palpitation. Feeling better. Back pain is better. Left wrist has 3 stitches, looks like healthy wound. No fever. No chills. PHYSICAL EXAMINATION VITAL SIGNS: Temperature 98.1, pulse 80, blood pressure 124/55. HEENT: Head is normocephalic, atraumatic. Eyes: PERRLA. Extraocular muscles are intact. Conjunctivae clear. Nose patent. Mucous membranes moist. NECK: Supple. No carotid bruits, JVD, or thyromegaly. CHEST: Bilaterally symmetrical. HEART: S1 and S2 positive. LUNGS: Clear to auscultation. ABDOMEN: Soft. Bowel sounds present. No organomegaly. EXTREMITIES: Lower extremities: No edema and no cyanosis. Upper extremities: Left upper extremity wrist has 3 stitches but looks like healthy. NEUROLOGIC: The patient is awake, alert, moving all 4 extremities. No focal deficits. MEDICATIONS: Hydralazine, Biotene, Cardizem, loratadine, Coreg, Coumadin, albuterol, DuoNeb, Effient, insulin, Tradjenta, diltiazem, potassium, digoxin, Levemir. LABORATORY DATA: We do not have CBC today. Chemistry: Sodium 132, potassium 3.6, BUN 16, creatinine 1.0, glucose 296 and 174, bilirubin 1.4, AST 71. ASSESSMENT AND PLAN: Ms. Mallorie Francis is a 72-year-old lady with proteinuria, hematuria, urinary tract infection, leukocytosis improving, anemia, uncontrolled diabetes mellitus, abnormal liver function test. The patient has coagulopathy. INR was 11.4 on the day of admission and went into 12.4, now it is back to 1.45 after giving her a couple of vitamin K. IV started, blood thinner and Coumadin today. History of chronic obstructive lung disease, cardiomyopathy, sleep apnea syndrome, pulmonary hypertension, atrial fibrillation, history of suicidal attempt in the past and this time also, some social issues. Social workers are still working on that. Refused to use CPAP/BiPAP. Dr. Gabriel is on the case. Hand Lacer is on the case also. GI and DVT prophylaxis. Repeat labs. We will follow up. Tanisha Lebron MD MTD[facility]
[2017-05-14 20:59] LABS: BLOOD UREA NITROGEN 16 mg/dL (7-21); CALCIUM 8.6 mg/dL (8.4-10.5); CARBON DIOXIDE 26 mmol/L (21-33); CHLORIDE 95 mmol/L (98-107); GFR AFRICAN-AMERICAN > 60; GLUCOSE,RANDOM 172 mg/dL (70-110); POTASSIUM 3.5 mmol/L (3.6-5.0); SODIUM 130 mmol/L (132-148)
[2017-05-14] MEDS ORDERED: Potassium Chloride 20 mEq ER Tab PO STA (21:59)
--- NOTE | 2017-05-14 22:00 | CP.PCM.PN ---
Subjective - Date & Time of Evaluation Date of Evaluation: 05/14/17 Time of Evaluation: 21:52 - Subjective Subjective: Patient was seen at bedside because nurse had called with repeat troponin was 5.03( Correct one was 4.93). Preivious two troponin levels were 0.53,0.62. Patient was asymptomatic. I had ordered EKG and asked to keep patient NPO for possible cardiac catheterization in AM. Later on patient had head ache for which tylenol was ordered which is not given yet. Head ache is frontal, in neck area, mild, with no dizziness, nausea, paraesthesia, weakness. Awaiting for transfer t [facility] for Psych reason, came in with attempted suicide. Medical record was reviewed. This 72 year old woman was admitted with depression. Has PMH of CAD, tripple bypass surgery, neck fusion,COPD, ICD, IBS, kidney failure, TIA, angina, atrial fibrillation,DM. Objective - Vital Signs/Intake and Output Vital Signs (last 24 hours): Temp Pulse Resp BP Pulse Ox 98 F 78 18 149/66 97 05/14/17 17:55 05/14/17 18:00 05/14/17 17:55 05/14/17 17:55 05/14/17 06:00 Intake and Output: 05/14/17 05/15/17 18:59 06:59 Intake Total 720 Output Total 400 Balance 320 - Medications Medications: Current Medications Albuterol/Ipratropium (Duoneb 3 Mg/0.5 Mg (3 Ml) Ud) 3 ml IH [id number] [facility] Last Admin: 05/14/17 19:29 Dose: 3 ml Atorvastatin Calcium (Lipitor) 20 mg PO DAILY [facility] Last Admin: 05/14/17 09:26 Dose: 20 mg Carvedilol (Coreg) 12.5 mg PO BID [facility] Last Admin: 05/14/17 17:38 Dose: 12.5 mg Digoxin (Lanoxin) 0.25 mg PO Q48H [facility] Last Admin: 05/14/17 14:30 Dose: 0.25 mg Diltiazem HCl (Cardizem Cd) 180 mg PO DAILY [facility] Last Admin: 05/14/17 09:28 Dose: 180 mg Docusate Sodium (Colace) 100 mg PO BID [facility] Last Admin: 05/14/17 17:37 Dose: 100 mg Famotidine (Pepcid) 40 mg PO DAILY [facility] Last Admin: 05/14/17 09:27 Dose: 40 mg Ferrous Sulfate (Feosol) 324 mg PO DAILY [facility] Last Admin: 05/14/17 09:26 Dose: 324 mg Furosemide (Lasix) 40 mg PO BID [facility] Last Admin: 05/14/17 17:37 Dose: 40 mg Glipizide (Glucotrol) 5 mg PO DAILY [facility] Last Admin: 05/14/17 09:26 Dose: 5 mg Hydralazine HCl (Apresoline) 25 mg PO TID [facility] Last Admin: 05/14/17 17:38 Dose: 25 mg Ceftriaxone Sodium (Rocephin 2 Gm Ivpb) 2 gm in 100 mls @ 100 mls/hr IVPB DAILY [facility] PRN Reason: Protocol Last Admin: 05/14/17 16:39 Dose: 100 mls/hr Insulin Detemir (Levemir) 12 unit SC HS [facility] Last Admin: 05/13/17 22:30 Dose: Not Given Insulin Human Lispro (Humalog Low) 0 units SC ACHS [facility] PRN Reason: Protocol Last Admin: 05/14/17 17:38 Dose: 2 units Lidocaine (Lidoderm) 1 ea TD DAILY [facility] Last Admin: 05/14/17 09:28 Dose: 1 ea Lisinopril (Zestril) 20 mg PO DAILY [facility] Last Admin: 05/14/17 09:26 Dose: 20 mg Loratadine (Claritin) 10 mg PO DAILY [facility] Last Admin: 05/14/17 09:26 Dose: 10 mg Magnesium Oxide (Mag-Ox) 400 mg PO DAILY [facility] Last Admin: 05/14/17 09:27 Dose: 400 mg Montelukast Sodium (Singulair) 10 mg PO DAILY [facility] Last Admin: 05/14/17 09:26 Dose: 10 mg Nitroglycerin (Nitrostat Sl Tab) 0.4 mg SL Q5M PRN PRN Reason: chest pain Non-Formulary Medication (Biotin [Biotin]) 100 mg PO DAILY [facility] Last Admin: 05/14/17 09:13 Dose: Not Given Non-Formulary Medication (Linagliptin [Tradjenta]) 5 mg PO DAILY [facility] Last Admin: 05/14/17 09:13 Dose: Not Given Nortriptyline HCl (Pamelor) 10 mg PO TID [facility] Last Admin: 05/14/17 17:35 Dose: 10 mg Potassium Chloride (Klor-Con 10) 10 meq PO BRK [facility] Last Admin: 05/14/17 12:07 Dose: 10 meq Prasugrel (Effient) 10 mg PO DAILY [facility] Last Admin: 05/14/17 12:07 Dose: 10 mg Sertraline HCl (Zoloft) 50 mg PO DAILY [facility] Last Admin: 05/14/17 09:26 Dose: 50 mg Warfarin Sodium (Coumadin) 5 mg PO 1800 [facility] PRN Reason: Protocol Last Admin: 05/14/17 17:35 Dose: 5 mg - Labs Labs: 05/13/17 06:00 05/14/17 20:40 PT 16.1 SECONDS (9.4-12.5) H 05/14/17 13:00 INR 1.45 (0.93-1.08) H 05/14/17 13:00 APTT 53.0 Seconds (25.1-36.5) H 05/12/17 21:00 Micro Results 05/13/17 00:20 Urine,Clean Catch Urine Culture - Preliminary Gram Negative Christopher Most Recent Lab Values WBC 10.9 10^3/ul (4.5-11.0) 05/13/17 06:00 RBC 3.15 10^6/uL (3.5-6.1) L 05/13/17 06:00 Hgb 9.4 g/dL (12.0-16.0) L 05/13/17 06:00 Hct 27.9 % (36.0-48.0) L 05/13/17 06:00 MCV 88.6 fl (80.0-105.0) 05/13/17 06:00 MCH 29.8 pg (25.0-35.0) 05/13/17 06:00 MCHC 33.7 g/dl (31.0-37.0) 05/13/17 06:00 RDW 16.3 % (11.5-14.5) H 05/13/17 06:00 Plt Count 349 10^3/uL (120.0-450.0) 05/13/17 06:00 MPV 8.7 fl (7.0-11.0) 05/13/17 06:00 Gran % 80.0 % (50.0-68.0) H 05/12/17 21:00 Lymph % (Auto) 13.7 % (22.0-35.0) L 05/12/17 21:00 [place] % (Auto) 6.0 % (1.0-6.0) 05/12/17 21:00 Eos % (Auto) 0.0 % (1.5-5.0) L 05/12/17 21:00 Baso % (Auto) 0.3 % (0.0-3.0) 05/12/17 21:00 Gran # 9.13 (1.4-6.5) H 05/12/17 21:00 Lymph # 1.6 (1.2-3.4) 05/12/17 21:00 [place]borne # 0.7 (0.1-0.6) H 05/12/17 21:00 Eos # 0.0 (0.0-0.7) 05/12/17 21:00 Baso # 0.03 K/mm3 (0.0-2.0) 05/12/17 21:00 PT 16.1 SECONDS (9.4-12.5) H 05/14/17 13:00 INR 1.45 (0.93-1.08) H 05/14/17 13:00 APTT 53.0 Seconds (25.1-36.5) H 05/12/17 21:00 Sodium 130 mmol/L (132-148) L 05/14/17 20:40 Potassium 3.5 mmol/L (3.6-5.0) L 05/14/17 20:40 Chloride 95 mmol/L (98-107) L 05/14/17 20:40 Carbon Dioxide 26 mmol/L (21-33) 05/14/17 20:40 Anion Gap 13 (10-20) 05/14/17 20:40 BUN 16 mg/dL (7-21) 05/14/17 20:40 Creatinine 0.9 mg/dl (0.7-1.2) 05/14/17 20:40 Est GFR ( Amer) > 60 05/14/17 20:40 Est GFR (Non-Af Amer) > 60 05/14/17 20:40 POC Glucose (mg/dL) 205 mg/dL (65-110) H 05/14/17 21:10 Random Glucose 172 mg/dL (70-110) H 05/14/17 20:40 Hemoglobin A1c 7.5 % (4.2-6.5) H 05/12/17 21:00 Calcium 8.6 mg/dL (8.4-10.5) 05/14/17 20:40 Magnesium 1.6 mg/dL (1.7-2.2) L 05/13/17 06:00 Iron 62 ug/dL (45-180) 05/12/17 21:00 TIBC 341.8 ug/dL (250-450) 05/12/17 21:00 % Saturation 18 (20-55) L 05/12/17 21:00 Total Bilirubin 1.4 mg/dL (0.2-1.3) H 05/14/17 05:30 AST 71 U/L (14-36) H D 05/14/17 05:30 ALT 44 U/L (7-56) 05/14/17 05:30 Alkaline Phosphatase 103 U/L (38-126) 05/14/17 05:30 Lactate Dehydrogenase 428 U/L (333-699) 05/13/17 06:00 Total Creatine Kinase 27 U/L (35-230) L 05/13/17 06:00 Troponin I 4.93 ng/mL H* D 05/14/17 20:40 NT-Pro-B Natriuret Pep 44831 pg/mL (0-450) H 05/13/17 06:00 Total Protein 6.1 g/dL (5.8-8.3) 05/14/17 05:30 Albumin 3.3 g/dL (3.0-4.8) 05/14/17 05:30 Globulin 2.7 gm/dL 05/14/17 05:30 Albumin/Globulin Ratio 1.2 (1.1-1.8) 05/14/17 05:30 Triglycerides 120 mg/dL (35-160) 05/13/17 06:00 Cholesterol 135 mg/dL (130-200) 05/13/17 06:00 LDL Cholesterol Direct 83 mg/dL (0-129) 05/13/17 06:00 HDL Cholesterol 26 mg/dL (29-60) L 05/13/17 06:00 Vitamin B12 702 pg/mL (239-931) 05/13/17 06:00 Folate > 20.0 ng/mL 05/13/17 06:00 TSH 3rd Generation 0.98 mIU/mL (0.46-4.68) 05/13/17 06:00 Urine Color Yellow (YELLOW) 05/13/17 00:20 Urine Appearance Clear (CLEAR) 05/13/17 00:20 Urine pH 6.0 (4.7-8.0) 05/13/17 00:20 Ur Specific [place] 1.025 (1.005-1.035) 05/13/17 00:20 Urine Protein 100 mg/dL (<30 mg/dL) H 05/13/17 00:20 Urine Glucose (UA) Negative mg/dL (NEGATIVE) 05/13/17 00:20 Urine Ketones Negative mg/dL (NEGATIVE) 05/13/17 00:20 Urine Blood Trace-intact (NEGATIVE) H 05/13/17 00:20 Urine Nitrate Negative (NEGATIVE) 05/13/17 00:20 Urine Bilirubin Small (NEGATIVE) H 05/13/17 00:20 Urine Urobilinogen 1.0 E.U./dL (<1 E.U./dL) H 05/13/17 00:20 Ur Leukocyte Esterase Trace Luis/uL (NEGATIVE) H 05/13/17 00:20 Urine RBC 1 - 3 /hpf (0-2) 05/13/17 00:20 Urine WBC 1 - 3 /hpf (0-6) 05/13/17 00:20 Ur Epithelial Cells 0 - 2 /hpf (0-5) 05/13/17 00:20 Urine Bacteria Many (NEG) 05/13/17 00:20 Salicylates < 1 mg/dL (2.0-20.0) L 05/12/17 21:00 Urine Opiates Screen Negative (NEGATIVE) 05/13/17 00:20 Urine Methadone Screen Negative (NEGATIVE) 05/13/17 00:20 Acetaminophen < 10.0 ug/ml (10.0-20.0) L 05/12/17 21:00 Ur Barbiturates Screen Negative (NEGATIVE) 05/13/17 00:20 Ur Phencyclidine Scrn Negative (NEGATIVE) 05/13/17 00:20 Ur Amphetamines Screen Negative (NEGATIVE) 05/13/17 00:20 U Benzodiazepines Scrn Positive (NEGATIVE) 05/13/17 00:20 U Oth Cocaine Metabols Negative (NEGATIVE) 05/13/17 00:20 U Cannabinoids Screen Negative (NEGATIVE) 05/13/17 00:20 Alcohol, Quantitative < 10 mg/dL (0-10) 05/12/17 21:00 Blood Type O POSITIVE 05/13/17 03:15 Blood Type Confirm O POSITIVE 05/13/17 03:35 Antibody Screen Negative 05/13/17 03:15 BBK History Checked No verified bt 05/13/17 03:15 - Constitutional Appears: Well, No Acute Distress - Head Exam Head Exam: ATRAUMATIC, NORMAL INSPECTION, NORMOCEPHALIC - Eye Exam Eye Exam: Normal appearance - ENT Exam ENT Exam: Normal External Ear Exam - Neck Exam Neck Exam: Normal Inspection - Respiratory Exam Respiratory Exam: NORMAL BREATHING PATTERN - Cardiovascular Exam Cardiovascular Exam: absent: JVD - GI/Abdominal Exam GI & Abdominal Exam: absent: Distended - Rectal Exam Rectal Exam: Deferred - Exam Additional comments: Deferred. - Extremities Exam Extremities Exam: Normal Inspection - Back Exam Back Exam: NORMAL INSPECTION - Neurological Exam Neurological Exam: Alert, Awake, Oriented x3 - Psychiatric Exam Psychiatric exam: Normal Affect, Normal Mood - Skin Skin Exam: Normal Color Assessment and Plan - Assessment and Plan (Free Text) Assessment: Elevated troponin level. Atrial fibrillation with RVR. CAD. Hx CABG. COPD. DM II. Plan: NPO for possible Cardiac cath. Tylenol 650 mg PO for head ache was ordered. K-dur 40 mEq po x 1. Continue present management.
[2017-05-14 22:15] LABS: TROPONIN I 4.93 ng/mL
[2017-05-14] MEDS: Insulin Detemir 100 units/ml Vial (Levemir) SC SCH (22:31)
--- NOTE | 2017-05-14 23:04 | CARD ---
APPROVED REPORT EKG Measurement Heart [id number] [place] 170P17 [id number] <Conclusion> Demand pacemaker, interpretation is based on intrinsic rhythm Sinus rhythm with occasional APCs and PVCs Abnormal ECG
[2017-05-15] MEDS: Albuterol-Ipratrop 3 mg / 0.5 (3 ml) UD IH SCH ×4 (01:24→20:46)
[2017-05-15 07:58] LABS: ALB/GLOB RATIO 1.2 (1.1-1.8); ALKALINE PHOSPHATASE 97 U/L (38-126); ALT/SGPT 39 U/L (7-56); AST/SGOT 39 U/L (14-36); BLOOD UREA NITROGEN 13 mg/dL (7-21); CARBON DIOXIDE 27 mmol/L (21-33); CHLORIDE 98 mmol/L (98-107); GFR AFRICAN-AMERICAN > 60; GLUCOSE,RANDOM 128 mg/dL (70-110); POTASSIUM 3.8 mmol/L (3.6-5.0); SODIUM 132 mmol/L (132-148); TOTAL PROTEIN 6.2 g/dL (5.8-8.3)
[2017-05-15] MEDS: Insulin Lispro (humaLOG) LOW Coverage SC SCH ×4 (08:29→21:30)
[2017-05-15] MEDS: Potassium Chloride 10 mEq ER Tab PO SCH (09:00)
--- NOTE | 2017-05-15 09:45 | CP.PCM.PN ---
Subjective - Date & Time of Evaluation Date of Evaluation: 05/15/17 Time of Evaluation: 07:00 - Subjective Subjective: Stable on 2R. No chest pain now but she had CP last evening. ECG was paced. Trop. + at 4.93. V/S noted. V. Paced PE: Lungs: clear cor: S1S2 Abd: soft Ext.: no edema Neuro: alert I/V=0490/400 recorded Labs noted: INR = 1.45. Trop yest. 4.93 ECGs noted: V. Paced Objective - Vital Signs/Intake and Output Vital Signs (last 24 hours): Temp Pulse Resp BP Pulse Ox 97.8 F 90 20 123/79 94 L 05/15/17 06:00 05/15/17 06:00 05/15/17 06:00 05/15/17 06:00 05/15/17 06:00 Intake and Output: 05/15/17 05/15/17 06:59 18:59 Intake Total 300 Balance 300 - Medications Medications: Current Medications Albuterol/Ipratropium (Duoneb 3 Mg/0.5 Mg (3 Ml) Ud) 3 ml IH [id number] [facility] Last Admin: 05/15/17 08:10 Dose: 3 ml Aspirin (Aspirin Chewable) 81 mg PO DAILY [facility] Atorvastatin Calcium (Lipitor) 20 mg PO DAILY [facility] Last Admin: 05/14/17 09:26 Dose: 20 mg Carvedilol (Coreg) 12.5 mg PO BID [facility] Last Admin: 05/14/17 17:38 Dose: 12.5 mg Digoxin (Lanoxin) 0.25 mg PO Q48H [facility] Last Admin: 05/14/17 14:30 Dose: 0.25 mg Diltiazem HCl (Cardizem Cd) 180 mg PO DAILY [facility] Last Admin: 05/14/17 09:28 Dose: 180 mg Docusate Sodium (Colace) 100 mg PO BID [facility] Last Admin: 05/14/17 17:37 Dose: 100 mg Famotidine (Pepcid) 40 mg PO DAILY [facility] Last Admin: 05/14/17 09:27 Dose: 40 mg Ferrous Sulfate (Feosol) 324 mg PO DAILY [facility] Last Admin: 05/14/17 09:26 Dose: 324 mg Furosemide (Lasix) 40 mg PO BID [facility] Last Admin: 05/14/17 17:37 Dose: 40 mg Glipizide (Glucotrol) 5 mg PO DAILY [facility] Last Admin: 05/14/17 09:26 Dose: 5 mg Hydralazine HCl (Apresoline) 25 mg PO TID [facility] Last Admin: 05/14/17 17:38 Dose: 25 mg Ceftriaxone Sodium (Rocephin 2 Gm Ivpb) 2 gm in 100 mls @ 100 mls/hr IVPB DAILY [facility] PRN Reason: Protocol Last Admin: 05/14/17 16:39 Dose: 100 mls/hr Insulin Detemir (Levemir) 12 unit SC HS [facility] Last Admin: 05/14/17 22:31 Dose: 12 unit Insulin Human Lispro (Humalog Low) 0 units SC ACHS [facility] PRN Reason: Protocol Last Admin: 05/15/17 08:29 Dose: Not Given Lidocaine (Lidoderm) 1 ea TD DAILY [facility] Last Admin: 05/14/17 09:28 Dose: 1 ea Lisinopril (Zestril) 20 mg PO DAILY [facility] Last Admin: 05/14/17 09:26 Dose: 20 mg Loratadine (Claritin) 10 mg PO DAILY [facility] Last Admin: 05/14/17 09:26 Dose: 10 mg Magnesium Oxide (Mag-Ox) 400 mg PO DAILY [facility] Last Admin: 05/14/17 09:27 Dose: 400 mg Montelukast Sodium (Singulair) 10 mg PO DAILY [facility] Last Admin: 05/14/17 09:26 Dose: 10 mg Nitroglycerin (Nitrostat Sl Tab) 0.4 mg SL Q5M PRN PRN Reason: chest pain Non-Formulary Medication (Biotin [Biotin]) 100 mg PO DAILY [facility] Last Admin: 05/14/17 09:13 Dose: Not Given Non-Formulary Medication (Linagliptin [Tradjenta]) 5 mg PO DAILY [facility] Last Admin: 05/14/17 09:13 Dose: Not Given Nortriptyline HCl (Pamelor) 10 mg PO TID [facility] Last Admin: 05/14/17 17:35 Dose: 10 mg Potassium Chloride (Klor-Con 10) 10 meq PO BRK [facility] Last Admin: 05/14/17 12:07 Dose: 10 meq Prasugrel (Effient) 10 mg PO DAILY [facility] Last Admin: 05/14/17 12:07 Dose: 10 mg Sertraline HCl (Zoloft) 50 mg PO DAILY [facility] Last Admin: 05/14/17 09:26 Dose: 50 mg Warfarin Sodium (Coumadin) 5 mg PO 1800 [facility] PRN Reason: Protocol Last Admin: 05/14/17 17:35 Dose: 5 mg - Labs Labs: 05/13/17 06:00 05/15/17 06:45 PT 16.1 SECONDS (9.4-12.5) H 05/14/17 13:00 INR 1.45 (0.93-1.08) H 05/14/17 13:00 APTT 53.0 Seconds (25.1-36.5) H 05/12/17 21:00 Assessment and Plan - Assessment and Plan (Free Text) Assessment: Depression/Self Injury/Suicide attempt CP/+ trop/NSTEMI Severe CAD/S/P recent RCA PCI (difficult and complex lesions) CAD/Remote CABG/MO/Sev. LVD CHF AF ICD COPD Extensive bowel resection Former Smoker] Social Problems: Homeless/Alienated from family Plan: Continue cardiac meds. Resume ASA. Check trop in AM Hold Psych. transfer for now May require re-cath/PCI but will try to be conservative at this point. AB for UTI Wound care As per Drs. Lebron and Harvey and Psych. Monitor INR's, labs, I/O, sats. OOB to chair as lou. Library Circulation Assistant intervention
[2017-05-15] MEDS: diltiaZEM 180 mg/24 Hours CD Cap PO SCH (10:34)
[2017-05-15] MEDS: Magnesium Oxide 400 mg Tab UD PO SCH (10:35)
[2017-05-15] MEDS: Lidocaine 5% Patch TD SCH (10:36)
--- NOTE | 2017-05-15 10:52 | CARD ---
APPROVED REPORT EKG Measurement Heart [id number] [place] 160P16 [id number] <Conclusion> Demand pacemaker, interpretation is based on intrinsic rhythm Sinus rhythm with occasional APCs and PVCs Nonspecific IVCD Abnormal ECG
[2017-05-15] MEDS: BIOTIN PO SCH (11:49)
[2017-05-15] MEDS: Non Formulary Medication (Linagliptin [Tradjenta] 5 MG) PO SCH (11:50)
[2017-05-15] MEDS: cefTRIAXone 2 GM IN NS 2 GM/100 ML BAG IVPB SCH (11:51)
--- NOTE | 2017-05-15 12:44 | PN ---
DATE: 05/15/2017 PULMONARY PROGRESS NOTE REFERRING PHYSICIAN: Tanisha Lebron MD SUBJECTIVE: The patient is lying in the bed, head at 45 degrees. Night was unremarkable. No headache. No rhinitis. Mild cough. No nausea. No vomiting and no diarrhea. No leg pain or leg swelling. OBJECTIVE: GENERAL: No acute distress. VITAL SIGNS: Temperature is 98, heart rate is 90, respiratory rate is 20, blood pressure is 123/79, and pulse oximetry is 94% on nasal cannula. HEENT: Moist mucous membrane. Crowded airway. Mallampati score is 4. NECK: Supple. No JVD. LUNGS: Has a few scattered rhonchi. HEART: S1 and S2, irregular. ABDOMEN: Soft and nontender. No organomegaly. EXTREMITIES: Does have trace edema. NEUROLOGIC: Awake and alert. Follows simple commands. MEDICATIONS: She is on hydralazine 25 mg three times a day, aspirin 81 mg daily, Biotin 100 mg daily, Cardizem CD 180 mg daily, Claritin 10 mg daily, Colace 100 mg twice a day, Coreg 12.5 mg twice a day, Coumadin 5 mg given last night, DuoNeb q. 6 hours., Effient 10 mg daily, ferrous sulfate 324 mg daily, glipizide 5 mg daily, insulin-coverage, potassium 10 mEq daily, digoxin 0.25 mg q.48 hours., Lasix 40 mg twice a day, Levemir 12 units subcutaneous daily, Lidoderm patch to the affected area, Tradjenta 5 mg daily, Lipitor 20 mg daily, nitrofurantoin 100 mg twice a day, started magnesium oxide, she is on 400 mg daily, Nitrostat 0.4 mg p.r.n. basis, nortriptyline 10 mg three times a day, Pepcid 40 mg daily, Singulair 10 mg daily, Zestril 20 mg daily, and Zoloft 50 mg daily. LABORATORY DATA: Reviewed sodium of 132, potassium of 3.8, chloride of 98, bicarbonate of 27, BUN of 13, creatinine of 0.9, glucose of 128, and calcium of 9.0. AST is 39, ALT is 39, and alkaline phosphatase is 97. Troponin is 4.93. Urine culture has Escherichia coli which is ESBL, but urinalysis does not show much white cell. IMPRESSION AND PLAN: Status post suicidal attempt, myocardial infarction, extensive coronary artery disease, history of coronary stent, cardiomyopathy, obstructive lung disease, may have sleep apnea syndrome, atrial fibrillation, hypertension, diabetes, and depression. According to the patient, she has been already complaint with Effient, did not miss it. Continue bronchodilator. Keep head at 45 degrees. We will leave anticoagulation choice for Cardiology. If need cardiac cath or sleep apnea precaution. Thank you and we will follow with you. Rosina Gabriel MD
--- NOTE | 2017-05-15 13:18 | CP.PCM.CON ---
<Michelle De Oliveira - Last Filed: 05/15/17 12:59> History of Present Illness - History of Present Illness History of Present Illness: This 72 year old female was seen sitting at her bedside. Chart was reviewed and patient discussed with nursing staff. She is being seen for a suicide attempt of cutting her left wrist. Patient continues to deny being suicidal and refuses voluntary psychiatric admission. Her circumstances have not changed, she will still be homeless as of tomorrow but she maintains she must be discharged to "get my stuff." She does not have a clear discharge plan and is not yet medically cleared for discharge. Due to the fact that this is the second admission this month with suicidal ideation and wrist cutting the screener will be called to determine disposition. Past Patient History - Infectious Disease Hx of Infectious Diseases: None - Past Social History Smoking Status: Former Smoker - CARDIAC Hx Cardiac Disorders: Yes Hx Angina: Yes Hx Cardia Arrhythmia: Yes (afib) Hx Hypercholesterolemia: Yes Hx Internal Defibrillator: Yes (left chest) Hx Pacemaker: Yes Other/Comment: coronary artery bypass graft - PULMONARY Hx Chronic Obstructive Pulmonary Disease (COPD): Yes - NEUROLOGICAL Hx Neurological Disorder: Yes Hx Transient Ischemic Attacks (TIA): Yes - HEENT Hx HEENT Problems: Yes (eyeglasses) Other/Comment: visually impaired - RENAL Hx Renal Failure: Yes - ENDOCRINE/METABOLIC Hx Diabetes Mellitus Type 2: Yes - HEMATOLOGICAL/ONCOLOGICAL Hx Blood Disorders: No - INTEGUMENTARY Hx Dermatological Problems: Yes Other/Comment: multiple skin discolorations arms, fading old bruises b/l knees, multiple surgical scars to abd, and lcw from pacemaker insertion - MUSCULOSKELETAL/RHEUMATOLOGICAL Hx Falls: Yes - GASTROINTESTINAL Hx Gastrointestinal Disorders: Yes (ileostomy reversal 2010) - GENITOURINARY/GYNECOLOGICAL Hx Genitourinary Disorders: Yes - PSYCHIATRIC Hx Depression: Yes Hx Substance Use: No - SURGICAL HISTORY Hx Cardiac Catheterization: Yes Hx Coronary Stent: Yes - ANESTHESIA Hx Anesthesia: Yes Hx Anesthesia Reactions: No Hx Malignant Hyperthermia: No Meds Allergies/Adverse Reactions: Allergies Allergy/AdvReac Type Severity Reaction Status Date / Time clopidogrel bisulfate Allergy RASH Verified 04/21/17 12:52 [From Plavix] - Medications Medications: Current Medications Albuterol/Ipratropium (Duoneb 3 Mg/0.5 Mg (3 Ml) Ud) 3 ml IH [id number] [facility] Last Admin: 05/15/17 08:10 Dose: 3 ml Aspirin (Aspirin Chewable) 81 mg PO DAILY [facility] Last Admin: 05/15/17 10:34 Dose: 81 mg Atorvastatin Calcium (Lipitor) 20 mg PO DAILY [facility] Last Admin: 05/15/17 10:34 Dose: 20 mg Carvedilol (Coreg) 12.5 mg PO BID [facility] Last Admin: 05/15/17 10:35 Dose: 12.5 mg Digoxin (Lanoxin) 0.25 mg PO Q48H [facility] Last Admin: 05/14/17 14:30 Dose: 0.25 mg Diltiazem HCl (Cardizem Cd) 180 mg PO DAILY [facility] Last Admin: 05/15/17 10:34 Dose: 180 mg Docusate Sodium (Colace) 100 mg PO BID [facility] Last Admin: 05/15/17 10:35 Dose: 100 mg Famotidine (Pepcid) 40 mg PO DAILY [facility] Last Admin: 05/15/17 10:35 Dose: 40 mg Ferrous Sulfate (Feosol) 324 mg PO DAILY [facility] Last Admin: 05/15/17 10:36 Dose: 324 mg Furosemide (Lasix) 40 mg PO BID [facility] Last Admin: 05/15/17 10:35 Dose: 40 mg Glipizide (Glucotrol) 5 mg PO DAILY [facility] Last Admin: 05/15/17 10:35 Dose: 5 mg Hydralazine HCl (Apresoline) 25 mg PO TID [facility] Last Admin: 05/15/17 10:36 Dose: 25 mg Insulin Detemir (Levemir) 12 unit SC HS [facility] Last Admin: 05/14/17 22:31 Dose: 12 unit Insulin Human Lispro (Humalog Low) 0 units SC ACHS [facility] PRN Reason: Protocol Last Admin: 05/15/17 11:53 Dose: 4 units Lidocaine (Lidoderm) 1 ea TD DAILY [facility] Last Admin: 05/15/17 10:36 Dose: 1 ea Lisinopril (Zestril) 20 mg PO DAILY [facility] Last Admin: 05/15/17 10:35 Dose: 20 mg Loratadine (Claritin) 10 mg PO DAILY [facility] Last Admin: 05/15/17 10:36 Dose: 10 mg Magnesium Oxide (Mag-Ox) 400 mg PO DAILY [facility] Last Admin: 05/15/17 10:35 Dose: 400 mg Montelukast Sodium (Singulair) 10 mg PO DAILY [facility] Last Admin: 05/15/17 10:36 Dose: 10 mg Nitrofurantoin Macrocrystals (Macrobid) 100 mg PO Q12 [facility] Nitroglycerin (Nitrostat Sl Tab) 0.4 mg SL Q5M PRN PRN Reason: chest pain Non-Formulary Medication (Biotin [Biotin]) 100 mg PO DAILY [facility] Last Admin: 05/15/17 11:49 Dose: Not Given Non-Formulary Medication (Linagliptin [Tradjenta]) 5 mg PO DAILY [facility] Last Admin: 05/15/17 11:50 Dose: Not Given Nortriptyline HCl (Pamelor) 10 mg PO TID [facility] Last Admin: 05/15/17 10:36 Dose: 10 mg Potassium Chloride (Klor-Con 10) 10 meq PO BRK [facility] Last Admin: 05/15/17 09:00 Dose: 10 meq Prasugrel (Effient) 10 mg PO DAILY [facility] Last Admin: 05/15/17 10:36 Dose: 10 mg Sertraline HCl (Zoloft) 50 mg PO DAILY [facility] Last Admin: 05/15/17 10:36 Dose: 50 mg Warfarin Sodium (Coumadin) 5 mg PO 1800 [facility] PRN Reason: Protocol Last Admin: 05/14/17 17:35 Dose: 5 mg Results - Vital Signs Recent Vital Signs: Last Vital Signs Temp 97.7 F 05/15/17 12:00 Pulse 77 05/15/17 12:00 Resp 18 05/15/17 12:00 BP 128/51 L 05/15/17 12:00 Pulse Ox 94 L 05/15/17 06:00 - Labs Result Diagrams: 05/13/17 06:00 05/15/17 06:45 Labs: Laboratory Results - last 24 hr 05/14/17 05/14/17 05/14/17 13:00 16:04 20:40 PT 16.1 H INR 1.45 H Sodium 130 L Potassium 3.5 L Chloride 95 L Carbon Dioxide 26 Anion Gap 13 BUN 16 Creatinine 0.9 Est GFR ( Amer) > 60 Est GFR (Non-Af Amer) > 60 POC Glucose (mg/dL) 209 H Random Glucose 172 H Calcium 8.6 Total Bilirubin AST ALT Alkaline Phosphatase Troponin I 4.93 H* D Total Protein Albumin Globulin Albumin/Globulin Ratio 11/29/17 11/30/17 11/30/17 21:10 06:45 07:10 PT INR Sodium 132 Potassium 3.8 Chloride 98 Carbon Dioxide 27 Anion Gap 11 BUN 13 Creatinine 0.9 Est GFR ( Amer) > 60 Est GFR (Non-Af Amer) > 60 POC Glucose (mg/dL) 205 H 139 H Random Glucose 128 H Calcium 9.0 Total Bilirubin 1.0 AST 39 H D ALT 39 Alkaline Phosphatase 97 Troponin I Total Protein 6.2 Albumin 3.4 Globulin 2.8 Albumin/Globulin Ratio 1.2 05/15/17 11:27 PT INR Sodium Potassium Chloride Carbon Dioxide Anion Gap BUN Creatinine Est GFR ( Amer) Est GFR (Non-Af Amer) POC Glucose (mg/dL) 320 H Random Glucose Calcium Total Bilirubin AST ALT Alkaline Phosphatase Troponin I Total Protein Albumin Globulin Albumin/Globulin Ratio <Beti Hackett - Last Filed: 05/15/17 16:45> History of Present Illness - History of Present Illness History of Present Illness: patient was seen with nurse practitioner, discussed with staff patient superficially friendly, but this is second suicidal attempt for past month This entry writer offered to admission to the psychiatric inpatient unit, but patient declined that offer As per Dr. Lebron, troponins are elevated patient is not medically cleared Impression: Rule out major depressive disorder Rule out adjustment disorder Plan: [facility] screening Continue current medications, continue current management patient is not psychiatrically cleared for discharge Discussed with Dr. Lebron into details Meds - Medications Medications: Current Medications Albuterol/Ipratropium (Duoneb 3 Mg/0.5 Mg (3 Ml) Ud) 3 ml IH [id number] [facility] Last Admin: 05/15/17 14:13 Dose: 3 ml Aspirin (Aspirin Chewable) 81 mg PO DAILY [facility] Last Admin: 05/15/17 10:34 Dose: 81 mg Atorvastatin Calcium (Lipitor) 20 mg PO DAILY [facility] Last Admin: 05/15/17 10:34 Dose: 20 mg Carvedilol (Coreg) 12.5 mg PO BID [facility] Last Admin: 05/15/17 10:35 Dose: 12.5 mg Digoxin (Lanoxin) 0.25 mg PO Q48H [facility] Last Admin: 05/14/17 14:30 Dose: 0.25 mg Diltiazem HCl (Cardizem Cd) 180 mg PO DAILY [facility] Last Admin: 05/15/17 10:34 Dose: 180 mg Docusate Sodium (Colace) 100 mg PO BID [facility] Last Admin: 05/15/17 10:35 Dose: 100 mg Famotidine (Pepcid) 40 mg PO DAILY [facility] Last Admin: 05/15/17 10:35 Dose: 40 mg Ferrous Sulfate (Feosol) 324 mg PO DAILY [facility] Last Admin: 05/15/17 10:36 Dose: 324 mg Furosemide (Lasix) 40 mg PO BID [facility] Last Admin: 05/15/17 10:35 Dose: 40 mg Glipizide (Glucotrol) 5 mg PO DAILY [facility] Last Admin: 05/15/17 10:35 Dose: 5 mg Hydralazine HCl (Apresoline) 25 mg PO TID [facility] Last Admin: 05/15/17 14:47 Dose: 25 mg Insulin Detemir (Levemir) 12 unit SC HS [facility] Last Admin: 05/14/17 22:31 Dose: 12 unit Insulin Human Lispro (Humalog Low) 0 units SC ACHS [facility] PRN Reason: Protocol Last Admin: 05/15/17 11:53 Dose: 4 units Lidocaine (Lidoderm) 1 ea TD DAILY [facility] Last Admin: 05/15/17 10:36 Dose: 1 ea Lisinopril (Zestril) 20 mg PO DAILY [facility] Last Admin: 05/15/17 10:35 Dose: 20 mg Loratadine (Claritin) 10 mg PO DAILY [facility] Last Admin: 05/15/17 10:36 Dose: 10 mg Magnesium Oxide (Mag-Ox) 400 mg PO DAILY [facility] Last Admin: 05/15/17 10:35 Dose: 400 mg Montelukast Sodium (Singulair) 10 mg PO DAILY [facility] Last Admin: 05/15/17 10:36 Dose: 10 mg Nitrofurantoin Macrocrystals (Macrobid) 100 mg PO Q12 [facility] Nitroglycerin (Nitrostat Sl Tab) 0.4 mg SL Q5M PRN PRN Reason: chest pain Non-Formulary Medication (Biotin [Biotin]) 100 mg PO DAILY [facility] Last Admin: 05/15/17 11:49 Dose: Not Given Non-Formulary Medication (Linagliptin [Tradjenta]) 5 mg PO DAILY [facility] Last Admin: 05/15/17 11:50 Dose: Not Given Nortriptyline HCl (Pamelor) 10 mg PO TID [facility] Last Admin: 05/15/17 14:47 Dose: 10 mg Potassium Chloride (Klor-Con 10) 10 meq PO BRK [facility] Last Admin: 05/15/17 09:00 Dose: 10 meq Prasugrel (Effient) 10 mg PO DAILY [facility] Last Admin: 05/15/17 10:36 Dose: 10 mg Sertraline HCl (Zoloft) 50 mg PO DAILY [facility] Last Admin: 05/15/17 10:36 Dose: 50 mg Warfarin Sodium (Coumadin) 5 mg PO 1800 [facility] PRN Reason: Protocol Last Admin: 05/14/17 17:35 Dose: 5 mg Results - Vital Signs Recent Vital Signs: Last Vital Signs Temp 97.7 F 05/15/17 12:00 Pulse 71 05/15/17 14:47 Resp 18 05/15/17 12:00 BP 173/62 H 05/15/17 14:47 Pulse Ox 94 L 05/15/17 06:00 - Labs Result Diagrams: 05/13/17 06:00 05/15/17 06:45 Labs: Laboratory Results - last 24 hr 05/14/17 05/14/17 05/15/17 20:40 21:10 06:45 Sodium 130 L 132 Potassium 3.5 L 3.8 Chloride 95 L 98 Carbon Dioxide 26 27 Anion Gap 13 11 BUN 16 13 Creatinine 0.9 0.9 Est GFR ( Amer) > 60 > 60 Est GFR (Non-Af Amer) > 60 > 60 POC Glucose (mg/dL) 205 H Random Glucose 172 H 128 H Calcium 8.6 9.0 Total Bilirubin 1.0 AST 39 H D ALT 39 Alkaline Phosphatase 97 Troponin I 4.93 H* D Total Protein 6.2 Albumin 3.4 Globulin 2.8 Albumin/Globulin Ratio 1.2 05/15/17 05/15/17 05/15/17 07:10 11:27 16:09 Sodium Potassium Chloride Carbon Dioxide Anion Gap BUN Creatinine Est GFR ( Amer) Est GFR (Non-Af Amer) POC Glucose (mg/dL) 139 H 320 H 110 Random Glucose Calcium Total Bilirubin AST ALT Alkaline Phosphatase Troponin I Total Protein Albumin Globulin Albumin/Globulin Ratio
--- NOTE | 2017-05-15 19:12 | CP.PCM.CON ---
History of Present Illness - History of Present Illness History of Present Illness: Infectious Disease Consultation: May 15, 2017 72 yo female with extensive past medical history that includes coronary artery disease, cardiomyopathy, pulmonary hypertension, atrial fibrillation, chronic obstructive lung disease, diabetes mellitus, and multiple attempts at suicide. The patient was initially admitted for a suicide attempt where she cut her wrist after having problems with her family on gi. She is currently on one-to-one evaluation. During this hospitalization, the patient was found to have ESBL+ E. coli in the urine. The patient was on the medical floor in early April 2017 with a finding of ESBL+ E. Coli in the urine as well. She received Meropenem for treatment at this time. PMHx: COPD, AMI, CHF, CAD, DM Type 2, Angina PSHx: CABG, PPM placement Allergies: Clopidogrel Social Hx: Ex-Smoker, No EtOH or illicit drug use Active Medications Albuterol/Ipratropium (Duoneb 3 Mg/0.5 Mg (3 Ml) Ud) 3 ml IH [id number] [facility] Last Admin: 05/15/17 14:13 Dose: 3 ml Aspirin (Aspirin Chewable) 81 mg PO DAILY [facility] Last Admin: 05/15/17 10:34 Dose: 81 mg Atorvastatin Calcium (Lipitor) 20 mg PO DAILY [facility] Last Admin: 05/15/17 10:34 Dose: 20 mg Carvedilol (Coreg) 12.5 mg PO BID [facility] Last Admin: 05/15/17 17:37 Dose: 12.5 mg Digoxin (Lanoxin) 0.25 mg PO Q48H [facility] Last Admin: 05/14/17 14:30 Dose: 0.25 mg Diltiazem HCl (Cardizem Cd) 180 mg PO DAILY [facility] Last Admin: 05/15/17 10:34 Dose: 180 mg Docusate Sodium (Colace) 100 mg PO BID [facility] Last Admin: 05/15/17 17:38 Dose: 100 mg Famotidine (Pepcid) 40 mg PO DAILY [facility] Last Admin: 05/15/17 10:35 Dose: 40 mg Ferrous Sulfate (Feosol) 324 mg PO DAILY [facility] Last Admin: 05/15/17 10:36 Dose: 324 mg Furosemide (Lasix) 40 mg PO BID [facility] Last Admin: 05/15/17 17:30 Dose: 40 mg Glipizide (Glucotrol) 5 mg PO DAILY [facility] Last Admin: 05/15/17 10:35 Dose: 5 mg Hydralazine HCl (Apresoline) 25 mg PO TID [facility] Last Admin: 05/15/17 17:47 Dose: 25 mg Meropenem 500 mg/ Sodium (Chloride) 50 mls @ 100 mls/hr IVPB Q8 [facility] PRN Reason: Protocol Stop: 05/18/17 22:01 Insulin Detemir (Levemir) 12 unit SC HS [facility] Last Admin: 05/14/17 22:31 Dose: 12 unit Insulin Human Lispro (Humalog Low) 0 units SC ACHS [facility] PRN Reason: Protocol Last Admin: 05/15/17 16:48 Dose: Not Given Lidocaine (Lidoderm) 1 ea TD DAILY [facility] Last Admin: 05/15/17 10:36 Dose: 1 ea Lisinopril (Zestril) 20 mg PO DAILY [facility] Last Admin: 05/15/17 10:35 Dose: 20 mg Loratadine (Claritin) 10 mg PO DAILY [facility] Last Admin: 05/15/17 10:36 Dose: 10 mg Magnesium Oxide (Mag-Ox) 400 mg PO DAILY [facility] Last Admin: 05/15/17 10:35 Dose: 400 mg Montelukast Sodium (Singulair) 10 mg PO DAILY [facility] Last Admin: 05/15/17 10:36 Dose: 10 mg Nitrofurantoin Macrocrystals (Macrobid) 100 mg PO Q12 [facility] Nitroglycerin (Nitrostat Sl Tab) 0.4 mg SL Q5M PRN PRN Reason: chest pain Non-Formulary Medication (Biotin [Biotin]) 100 mg PO DAILY [facility] Last Admin: 05/15/17 11:49 Dose: Not Given Non-Formulary Medication (Linagliptin [Tradjenta]) 5 mg PO DAILY [facility] Last Admin: 05/15/17 11:50 Dose: Not Given Nortriptyline HCl (Pamelor) 10 mg PO TID [facility] Last Admin: 05/15/17 17:38 Dose: 10 mg Potassium Chloride (Klor-Con 10) 10 meq PO BRK [facility] Last Admin: 05/15/17 09:00 Dose: 10 meq Prasugrel (Effient) 10 mg PO DAILY [facility] Last Admin: 05/15/17 10:36 Dose: 10 mg Sertraline HCl (Zoloft) 50 mg PO DAILY [facility] Last Admin: 05/15/17 10:36 Dose: 50 mg Warfarin Sodium (Coumadin) 5 mg PO 1800 [facility] PRN Reason: Protocol Last Admin: 05/15/17 17:38 Dose: 5 mg Family Hx: none given ROS: Depression, SOB, syncopal episode, chest pain No melena, hematuria, hematemesis, hematochezia, depression, anxiety, diarrhea, vomiting, vision loss, hearing loss Past Patient History - Infectious Disease Hx of Infectious Diseases: None - Past Social History Smoking Status: Former Smoker - CARDIAC Hx Cardiac Disorders: Yes Hx Angina: Yes Hx Cardia Arrhythmia: Yes (afib) Hx Hypercholesterolemia: Yes Hx Internal Defibrillator: Yes (left chest) Hx Pacemaker: Yes Other/Comment: coronary artery bypass graft - PULMONARY Hx Chronic Obstructive Pulmonary Disease (COPD): Yes - NEUROLOGICAL Hx Neurological Disorder: Yes Hx Transient Ischemic Attacks (TIA): Yes - HEENT Hx HEENT Problems: Yes (eyeglasses) Other/Comment: visually impaired - RENAL Hx Renal Failure: Yes - ENDOCRINE/METABOLIC Hx Diabetes Mellitus Type 2: Yes - HEMATOLOGICAL/ONCOLOGICAL Hx Blood Disorders: No - INTEGUMENTARY Hx Dermatological Problems: Yes Other/Comment: multiple skin discolorations arms, fading old bruises b/l knees, multiple surgical scars to abd, and lcw from pacemaker insertion - MUSCULOSKELETAL/RHEUMATOLOGICAL Hx Falls: Yes - GASTROINTESTINAL Hx Gastrointestinal Disorders: Yes (ileostomy reversal 2010) - GENITOURINARY/GYNECOLOGICAL Hx Genitourinary Disorders: Yes - PSYCHIATRIC Hx Depression: Yes Hx Substance Use: No - SURGICAL HISTORY Hx Cardiac Catheterization: Yes Hx Coronary Stent: Yes - ANESTHESIA Hx Anesthesia: Yes Hx Anesthesia Reactions: No Hx Malignant Hyperthermia: No Meds Allergies/Adverse Reactions: Allergies Allergy/AdvReac Type Severity Reaction Status Date / Time clopidogrel bisulfate Allergy RASH Verified 04/21/17 12:52 [From Plavix] - Medications Medications: Current Medications Albuterol/Ipratropium (Duoneb 3 Mg/0.5 Mg (3 Ml) Ud) 3 ml IH [id number] [facility] Last Admin: 05/15/17 14:13 Dose: 3 ml Aspirin (Aspirin Chewable) 81 mg PO DAILY [facility] Last Admin: 05/15/17 10:34 Dose: 81 mg Atorvastatin Calcium (Lipitor) 20 mg PO DAILY [facility] Last Admin: 05/15/17 10:34 Dose: 20 mg Carvedilol (Coreg) 12.5 mg PO BID [facility] Last Admin: 05/15/17 17:37 Dose: 12.5 mg Digoxin (Lanoxin) 0.25 mg PO Q48H [facility] Last Admin: 05/14/17 14:30 Dose: 0.25 mg Diltiazem HCl (Cardizem Cd) 180 mg PO DAILY [facility] Last Admin: 05/15/17 10:34 Dose: 180 mg Docusate Sodium (Colace) 100 mg PO BID [facility] Last Admin: 05/15/17 17:38 Dose: 100 mg Famotidine (Pepcid) 40 mg PO DAILY [facility] Last Admin: 05/15/17 10:35 Dose: 40 mg Ferrous Sulfate (Feosol) 324 mg PO DAILY [facility] Last Admin: 05/15/17 10:36 Dose: 324 mg Furosemide (Lasix) 40 mg PO BID [facility] Last Admin: 05/15/17 17:30 Dose: 40 mg Glipizide (Glucotrol) 5 mg PO DAILY [facility] Last Admin: 05/15/17 10:35 Dose: 5 mg Hydralazine HCl (Apresoline) 25 mg PO TID [facility] Last Admin: 05/15/17 17:47 Dose: 25 mg Meropenem 500 mg/ Sodium (Chloride) 50 mls @ 100 mls/hr IVPB Q8 [facility] PRN Reason: Protocol Stop: 05/18/17 22:01 Insulin Detemir (Levemir) 12 unit SC HS [facility] Last Admin: 05/14/17 22:31 Dose: 12 unit Insulin Human Lispro (Humalog Low) 0 units SC ACHS [facility] PRN Reason: Protocol Last Admin: 05/15/17 16:48 Dose: Not Given Lidocaine (Lidoderm) 1 ea TD DAILY [facility] Last Admin: 05/15/17 10:36 Dose: 1 ea Lisinopril (Zestril) 20 mg PO DAILY [facility] Last Admin: 05/15/17 10:35 Dose: 20 mg Loratadine (Claritin) 10 mg PO DAILY [facility] Last Admin: 05/15/17 10:36 Dose: 10 mg Magnesium Oxide (Mag-Ox) 400 mg PO DAILY [facility] Last Admin: 05/15/17 10:35 Dose: 400 mg Montelukast Sodium (Singulair) 10 mg PO DAILY [facility] Last Admin: 05/15/17 10:36 Dose: 10 mg Nitrofurantoin Macrocrystals (Macrobid) 100 mg PO Q12 [facility] Nitroglycerin (Nitrostat Sl Tab) 0.4 mg SL Q5M PRN PRN Reason: chest pain Non-Formulary Medication (Biotin [Biotin]) 100 mg PO DAILY [facility] Last Admin: 05/15/17 11:49 Dose: Not Given Non-Formulary Medication (Linagliptin [Tradjenta]) 5 mg PO DAILY [facility] Last Admin: 05/15/17 11:50 Dose: Not Given Nortriptyline HCl (Pamelor) 10 mg PO TID [facility] Last Admin: 05/15/17 17:38 Dose: 10 mg Potassium Chloride (Klor-Con 10) 10 meq PO BRK [facility] Last Admin: 05/15/17 09:00 Dose: 10 meq Prasugrel (Effient) 10 mg PO DAILY [facility] Last Admin: 05/15/17 10:36 Dose: 10 mg Sertraline HCl (Zoloft) 50 mg PO DAILY [facility] Last Admin: 05/15/17 10:36 Dose: 50 mg Warfarin Sodium (Coumadin) 5 mg PO 1800 [facility] PRN Reason: Protocol Last Admin: 05/15/17 17:38 Dose: 5 mg Physical Exam - Constitutional Appears: Non-toxic, No Acute Distress, Chronically Ill - Head Exam Head Exam: ATRAUMATIC, NORMOCEPHALIC - Eye Exam Eye Exam: EOMI, PERRL Pupil Exam: NORMAL ACCOMODATION, PERRL - ENT Exam ENT Exam: Mucous Membranes Moist, Normal External Ear Exam, TM's Normal Bilaterally - Neck Exam Neck exam: Positive for: Full Rom, Normal Inspection - Respiratory Exam Respiratory Exam: Clear to Auscultation Bilateral, NORMAL BREATHING PATTERN. absent: Rales, Rhonchi, Wheezes - Cardiovascular Exam Cardiovascular Exam: REGULAR RHYTHM, RRR, +S1, +S2 - GI/Abdominal Exam GI & Abdominal Exam: Normal Bowel Sounds, Soft. absent: Distended, Tenderness - Extremities Exam Extremities exam: Positive for: full ROM, normal inspection - Neurological Exam Neurological exam: Alert, CN II-XII Intact, Oriented x3 - Psychiatric Exam Psychiatric exam: Depressed - Skin Skin Exam: Intact, Normal Color Results - Vital Signs Recent Vital Signs: Last Vital Signs Temp 98.3 F 05/15/17 17:44 Pulse 68 05/15/17 17:47 Resp 20 05/15/17 17:44 BP 160/57 H 05/15/17 17:47 Pulse Ox 94 L 05/15/17 06:00 - Labs Result Diagrams: 05/13/17 06:00 05/15/17 06:45 Labs: Laboratory Results - last 24 hr 05/14/17 05/14/17 05/15/17 20:40 21:10 06:45 Sodium 130 L 132 Potassium 3.5 L 3.8 Chloride 95 L 98 Carbon Dioxide 26 27 Anion Gap 13 11 BUN 16 13 Creatinine 0.9 0.9 Est GFR ( Amer) > 60 > 60 Est GFR (Non-Af Amer) > 60 > 60 POC Glucose (mg/dL) 205 H Random Glucose 172 H 128 H Calcium 8.6 9.0 Total Bilirubin 1.0 AST 39 H D ALT 39 Alkaline Phosphatase 97 Troponin I 4.93 H* D Total Protein 6.2 Albumin 3.4 Globulin 2.8 Albumin/Globulin Ratio 1.2 05/15/17 05/15/17 05/15/17 07:10 11:27 16:09 Sodium Potassium Chloride Carbon Dioxide Anion Gap BUN Creatinine Est GFR ( Amer) Est GFR (Non-Af Amer) POC Glucose (mg/dL) 139 H 320 H 110 Random Glucose Calcium Total Bilirubin AST ALT Alkaline Phosphatase Troponin I Total Protein Albumin Globulin Albumin/Globulin Ratio Assessment & Plan - Assessment and Plan (Free Text) Assessment: 72 yo female with original admission for suicide attempt by slitting wrists. She was found to have a UTI again with ESBL + E. Coli. The patient had an admission here less than a month ago for similar infection. The patient was treated with 7 days of Meropenem at that time. Currently she is on Nitrofuratoin. Will restart Meropenem with Nitrofuratoin for treatment. The patient's cultures on the last hospitalization had shown clearance of the infection prior to discharge. The patient may need PO Nitrofuratoin for prolonged treatment after the completion of IV Meropenem. Thank you for allowing me to participate in the care of the patient, we will follow with you.
--- NOTE | 2017-05-15 19:22 | PN ---
DATE: SUBJECTIVE: The patient is a 72-year-old female. The patient is seen and examined at the bedside. Looking comfortable. Night was unremarkable. No fever. No chills. No nausea, vomiting or diarrhea. No hematuria or hematochezia. No swelling of the legs except her left wrist has 3 stitches. No headache. No dizziness. PHYSICAL EXAMINATION VITAL SIGNS: Temperature 98, heart rate 90, respiratory rate 20, blood pressure 123/79, pulse oximetry 94% on nasal cannula. HEENT: Head normocephalic, atraumatic. Eyes, PERRLA. Extraocular muscles are intact. Conjunctivae clear. Nose patent. Mucous membranes moist. NECK: Supple. No carotid bruits. No JVD or thyromegaly. LUNGS: S1 and S2 positive, irregular. ABDOMEN: Soft, nontender. No organomegaly. EXTREMITIES: No edema. No cyanosis except that her left upper extremity. NEUROLOGIC: Awake and alert. Moving all 4 extremities. No focal deficit. MEDICATIONS: Hydralazine, aspirin, Biotene, Cardizem, Claritin, Colace, Coreg, Coumadin, DuoNeb, Effient, ferrous sulfate, glipizide insulin coverage, potassium, digoxin, Lasix, Levemir, Lidoderm patch, Tradjenta, Lipitor, nitrofurantoin, Nitrostat, nortriptyline, Singulair, Zestril, and Zoloft. LABORATORY DATA: Sodium 132, potassium 3.8, BUN 13, creatinine 0.9, glucose 128, AST 39, ALT 39, troponin 4.93. Urine has E. coli with ESBL. ASSESSMENT AND PLAN: Ms. Mallorie Francis status post suicidal attempt, second time, myocardial infarction, extensive coronary artery disease, history of coronary artery stent, cardiomyopathy, obstructive lung disease, sleep apnea syndrome, atrial fibrillation, hypotension, diabetes mellitus uncontrolled, depression noncompliant. Continue bronchodilator. INR was very high, we hold Coumadin. We started Coumadin and Effient. Troponin is increasing as per Membership Correspondent, may be patient need catheterization tomorrow. Gastrointestinal and deep venous thrombosis prophylaxis. Repeat labs. Tanisha Lebron MD
[2017-05-15] MEDS: Insulin Detemir 100 units/ml Vial (Levemir) SC SCH (21:31)
[2017-05-15] MEDS: Meropenem 500 MG in Sodium Chloride 0.9% 50 ML IVPB SCH (21:39)
[2017-05-15] MEDS ORDERED: guaiFENesin 100 mg/5 ml Syrup UD PO PRN (21:42)
[2017-05-16] MEDS: Albuterol-Ipratrop 3 mg / 0.5 (3 ml) UD IH SCH ×4 (02:08→20:59)
[2017-05-16] MEDS: Meropenem 500 MG in Sodium Chloride 0.9% 50 ML IVPB SCH ×3 (04:59→21:43)
[2017-05-16 06:42] LABS: INR 1.5 (0.93-1.08)
[2017-05-16 06:47] LABS: ALB/GLOB RATIO 1.2 (1.1-1.8); ALKALINE PHOSPHATASE 97 U/L (38-126); ALT/SGPT 36 U/L (7-56); AST/SGOT 40 U/L (14-36); BILIRUBIN,TOTAL 0.9 mg/dL (0.2-1.3); BLOOD UREA NITROGEN 14 mg/dL (7-21); CALCIUM 9.4 mg/dL (8.4-10.5); CARBON DIOXIDE 26 mmol/L (21-33); CHLORIDE 98 mmol/L (98-107); GFR AFRICAN-AMERICAN > 60; GLUCOSE,RANDOM 123 mg/dL (70-110); POTASSIUM 3.5 mmol/L (3.6-5.0); SODIUM 134 mmol/L (132-148); TOTAL PROTEIN 6.4 g/dL (5.8-8.3)
[2017-05-16] MEDS: Insulin Lispro (humaLOG) LOW Coverage SC SCH ×4 (07:57→22:15)
[2017-05-16] MEDS: Potassium Chloride 10 mEq ER Tab PO SCH (07:57)
--- NOTE | 2017-05-16 09:09 | CP.PCM.PN ---
Subjective - Date & Time of Evaluation Date of Evaluation: 05/16/17 Time of Evaluation: 07:00 - Subjective Subjective: Stable on 2R. No chest pain or SOB. V/S noted. V. Paced PE: Lungs: clear cor: S1S2 Abd: soft Ext.: no edema Neuro: alert Labs noted: INR = 1.50. Trop = 2.8, K+= 3.5 ECGs noted: V. Paced Objective - Vital Signs/Intake and Output Vital Signs (last 24 hours): Temp Pulse Resp BP Pulse Ox 97.7 F 78 18 143/75 96 05/16/17 06:00 05/16/17 06:00 05/16/17 06:00 05/16/17 06:00 05/16/17 06:00 Intake and Output: 05/16/17 05/16/17 06:59 18:59 Intake Total 320 Output Total 0 Balance 320 - Medications Medications: Current Medications Albuterol/Ipratropium (Duoneb 3 Mg/0.5 Mg (3 Ml) Ud) 3 ml IH [id number] [facility] Last Admin: 05/16/17 08:03 Dose: 3 ml Aspirin (Aspirin Chewable) 81 mg PO DAILY [facility] Last Admin: 05/15/17 10:34 Dose: 81 mg Atorvastatin Calcium (Lipitor) 20 mg PO DAILY [facility] Last Admin: 05/15/17 10:34 Dose: 20 mg Carvedilol (Coreg) 12.5 mg PO BID [facility] Last Admin: 05/15/17 17:37 Dose: 12.5 mg Digoxin (Lanoxin) 0.25 mg PO Q48H [facility] Last Admin: 05/14/17 14:30 Dose: 0.25 mg Diltiazem HCl (Cardizem Cd) 180 mg PO DAILY [facility] Last Admin: 05/15/17 10:34 Dose: 180 mg Docusate Sodium (Colace) 100 mg PO BID [facility] Last Admin: 05/15/17 17:38 Dose: 100 mg Famotidine (Pepcid) 40 mg PO DAILY [facility] Last Admin: 05/15/17 10:35 Dose: 40 mg Ferrous Sulfate (Feosol) 324 mg PO DAILY [facility] Last Admin: 05/15/17 10:36 Dose: 324 mg Furosemide (Lasix) 40 mg PO BID [facility] Last Admin: 05/15/17 17:30 Dose: 40 mg Glipizide (Glucotrol) 5 mg PO DAILY [facility] Last Admin: 05/15/17 10:35 Dose: 5 mg Guaifenesin (Robitussin) 100 mg PO Q4H PRN PRN Reason: Cough Last Admin: 05/15/17 22:09 Dose: 100 mg Hydralazine HCl (Apresoline) 25 mg PO TID [facility] Last Admin: 05/15/17 17:47 Dose: 25 mg Meropenem 500 mg/ Sodium (Chloride) 50 mls @ 100 mls/hr IVPB Q8 [facility] PRN Reason: Protocol Stop: 05/18/17 22:01 Last Admin: 05/16/17 04:59 Dose: 100 mls/hr Insulin Detemir (Levemir) 12 unit SC HS [facility] Last Admin: 05/15/17 21:31 Dose: Not Given Insulin Human Lispro (Humalog Low) 0 units SC ACHS [facility] PRN Reason: Protocol Last Admin: 05/16/17 07:57 Dose: 1 units Lidocaine (Lidoderm) 1 ea TD DAILY [facility] Last Admin: 05/15/17 10:36 Dose: 1 ea Lisinopril (Zestril) 20 mg PO DAILY [facility] Last Admin: 05/15/17 10:35 Dose: 20 mg Loratadine (Claritin) 10 mg PO DAILY [facility] Last Admin: 05/15/17 10:36 Dose: 10 mg Magnesium Oxide (Mag-Ox) 400 mg PO DAILY [facility] Last Admin: 05/15/17 10:35 Dose: 400 mg Montelukast Sodium (Singulair) 10 mg PO DAILY [facility] Last Admin: 05/15/17 10:36 Dose: 10 mg Nitroglycerin (Nitrostat Sl Tab) 0.4 mg SL Q5M PRN PRN Reason: chest pain Non-Formulary Medication (Biotin [Biotin]) 100 mg PO DAILY [facility] Last Admin: 05/15/17 11:49 Dose: Not Given Non-Formulary Medication (Linagliptin [Tradjenta]) 5 mg PO DAILY [facility] Last Admin: 05/15/17 11:50 Dose: Not Given Nortriptyline HCl (Pamelor) 10 mg PO TID [facility] Last Admin: 05/15/17 17:38 Dose: 10 mg Potassium Chloride (Klor-Con 10) 10 meq PO BRK [facility] Last Admin: 05/16/17 07:57 Dose: 10 meq Prasugrel (Effient) 10 mg PO DAILY [facility] Last Admin: 05/15/17 10:36 Dose: 10 mg Sertraline HCl (Zoloft) 50 mg PO DAILY [facility] Last Admin: 05/15/17 10:36 Dose: 50 mg Warfarin Sodium (Coumadin) 5 mg PO 1800 [facility] PRN Reason: Protocol Last Admin: 05/15/17 17:38 Dose: 5 mg Zolpidem Tartrate (Ambien) 5 mg PO HS PRN; Protocol PRN Reason: Insomnia Last Admin: 05/15/17 23:11 Dose: 5 mg - Labs Labs: 05/13/17 06:00 05/16/17 05:15 PT 16.6 SECONDS (9.4-12.5) H 05/16/17 05:15 INR 1.50 (0.93-1.08) H 05/16/17 05:15 APTT 53.0 Seconds (25.1-36.5) H 05/12/17 21:00 Assessment and Plan - Assessment and Plan (Free Text) Assessment: Depression/Self Injury/Suicide attempt CP/+ trop/NSTEMI Severe CAD/S/P recent RCA PCI (difficult and complex lesions) CAD/Remote CABG/WV/Sev. LVD CHF AF ICD COPD Extensive bowel resection Former Smoker] Social Problems: Homeless/Alienated from family Plan: Continue cardiac meds. Resume ASA. Medical therapy for CAD/recent PCI/WV. Hold Psych. transfer for now May require re-cath/PCI but will try to be conservative at this point. AB for UTI Wound care As per Drs. Lebron and Harvey and Psych. Monitor INR's, labs, I/O, sats. 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
[2017-05-16] MEDS: Lidocaine 5% Patch TD SCH (10:41)
[2017-05-16] MEDS: Magnesium Oxide 400 mg Tab UD PO SCH (10:42)
[2017-05-16] MEDS: diltiaZEM 180 mg/24 Hours CD Cap PO SCH (10:43)
[2017-05-16] MEDS: BIOTIN PO SCH (10:44)
[2017-05-16] MEDS: Non Formulary Medication (Linagliptin [Tradjenta] 5 MG) PO SCH (10:46)
--- NOTE | 2017-05-16 13:01 | CP.PCM.CON ---
<Michelle De Oliveira - Last Filed: 05/16/17 12:52> History of Present Illness - History of Present Illness History of Present Illness: This 72 year old female was seen in her bed. Chart was reviewed and nursing staff consulted. She is not medically cleared for discharge and continues to refuse voluntary psychiatric admiission. Screener has been in contact with the nursing staff, will not intervene unless medically cleared. She continues to deny suicidal ideation. She denies any current psychiatric symptoms indicating her sleep, appetite, focus and concentration are "fine" and that all she needs is to "get her stuff". She denies any plan as to where she will go or what she will do if discharged so this does not make sense. She also continues to deny any family or any other support of any kind. Will follow. Past Patient History - Infectious Disease Hx of Infectious Diseases: None - Past Social History Smoking Status: Former Smoker - CARDIAC Hx Cardiac Disorders: Yes Hx Angina: Yes Hx Cardia Arrhythmia: Yes (afib) Hx Hypercholesterolemia: Yes Hx Internal Defibrillator: Yes (left chest) Hx Pacemaker: Yes Other/Comment: coronary artery bypass graft - PULMONARY Hx Chronic Obstructive Pulmonary Disease (COPD): Yes - NEUROLOGICAL Hx Neurological Disorder: Yes Hx Transient Ischemic Attacks (TIA): Yes - HEENT Hx HEENT Problems: Yes (eyeglasses) Other/Comment: visually impaired - RENAL Hx Renal Failure: Yes - ENDOCRINE/METABOLIC Hx Diabetes Mellitus Type 2: Yes - HEMATOLOGICAL/ONCOLOGICAL Hx Blood Disorders: No - INTEGUMENTARY Hx Dermatological Problems: Yes Other/Comment: multiple skin discolorations arms, fading old bruises b/l knees, multiple surgical scars to abd, and lcw from pacemaker insertion - MUSCULOSKELETAL/RHEUMATOLOGICAL Hx Falls: Yes - GASTROINTESTINAL Hx Gastrointestinal Disorders: Yes (ileostomy reversal 2010) - GENITOURINARY/GYNECOLOGICAL Hx Genitourinary Disorders: Yes - PSYCHIATRIC Hx Depression: Yes Hx Substance Use: No - SURGICAL HISTORY Hx Cardiac Catheterization: Yes Hx Coronary Stent: Yes - ANESTHESIA Hx Anesthesia: Yes Hx Anesthesia Reactions: No Hx Malignant Hyperthermia: No Meds Allergies/Adverse Reactions: Allergies Allergy/AdvReac Type Severity Reaction Status Date / Time clopidogrel bisulfate Allergy RASH Verified 04/21/17 12:52 [From Plavix] - Medications Medications: Current Medications Acetaminophen (Tylenol 325mg Tab) 650 mg PO Q6H PRN PRN Reason: Pain, moderate (4-7) Albuterol/Ipratropium (Duoneb 3 Mg/0.5 Mg (3 Ml) Ud) 3 ml IH [id number] [facility] Last Admin: 05/16/17 08:03 Dose: 3 ml Aspirin (Aspirin Chewable) 81 mg PO DAILY [facility] Last Admin: 05/16/17 10:42 Dose: 81 mg Atorvastatin Calcium (Lipitor) 20 mg PO DAILY [facility] Last Admin: 05/16/17 10:42 Dose: 20 mg Carvedilol (Coreg) 12.5 mg PO BID [facility] Last Admin: 05/16/17 10:45 Dose: 12.5 mg Digoxin (Lanoxin) 0.25 mg PO Q48H [facility] Last Admin: 05/14/17 14:30 Dose: 0.25 mg Diltiazem HCl (Cardizem Cd) 180 mg PO DAILY [facility] Last Admin: 05/16/17 10:43 Dose: 180 mg Docusate Sodium (Colace) 100 mg PO BID [facility] Last Admin: 05/16/17 10:43 Dose: 100 mg Famotidine (Pepcid) 40 mg PO DAILY [facility] Last Admin: 05/16/17 10:42 Dose: 40 mg Ferrous Sulfate (Feosol) 324 mg PO DAILY [facility] Last Admin: 05/16/17 10:42 Dose: 324 mg Furosemide (Lasix) 40 mg PO BID [facility] Last Admin: 05/16/17 10:42 Dose: 40 mg Glipizide (Glucotrol) 5 mg PO DAILY [facility] Last Admin: 05/16/17 10:42 Dose: 5 mg Guaifenesin (Robitussin) 100 mg PO Q4H PRN PRN Reason: Cough Last Admin: 05/15/17 22:09 Dose: 100 mg Hydralazine HCl (Apresoline) 25 mg PO TID [facility] Last Admin: 05/16/17 10:43 Dose: 25 mg Meropenem 500 mg/ Sodium (Chloride) 50 mls @ 100 mls/hr IVPB Q8 [facility] PRN Reason: Protocol Stop: 05/18/17 22:01 Last Admin: 05/16/17 04:59 Dose: 100 mls/hr Insulin Detemir (Levemir) 12 unit SC HS [facility] Last Admin: 05/15/17 21:31 Dose: Not Given Insulin Human Lispro (Humalog Low) 0 units SC ACHS [facility] PRN Reason: Protocol Last Admin: 05/16/17 07:57 Dose: 1 units Lidocaine (Lidoderm) 1 ea TD DAILY [facility] Last Admin: 05/16/17 10:41 Dose: 1 ea Lisinopril (Zestril) 20 mg PO DAILY [facility] Last Admin: 05/16/17 10:43 Dose: 20 mg Loratadine (Claritin) 10 mg PO DAILY [facility] Last Admin: 05/16/17 10:42 Dose: 10 mg Magnesium Oxide (Mag-Ox) 400 mg PO DAILY [facility] Last Admin: 05/16/17 10:42 Dose: 400 mg Montelukast Sodium (Singulair) 10 mg PO DAILY [facility] Last Admin: 05/16/17 10:42 Dose: 10 mg Nitroglycerin (Nitrostat Sl Tab) 0.4 mg SL Q5M PRN PRN Reason: chest pain Non-Formulary Medication (Biotin [Biotin]) 100 mg PO DAILY [facility] Last Admin: 05/16/17 10:44 Dose: Not Given Non-Formulary Medication (Linagliptin [Tradjenta]) 5 mg PO DAILY [facility] Last Admin: 05/16/17 10:46 Dose: Not Given Nortriptyline HCl (Pamelor) 10 mg PO TID [facility] Last Admin: 05/16/17 10:43 Dose: 10 mg Potassium Chloride (Klor-Con 10) 10 meq PO BRK [facility] Last Admin: 05/16/17 07:57 Dose: 10 meq Prasugrel (Effient) 10 mg PO DAILY [facility] Last Admin: 05/16/17 10:42 Dose: 10 mg Sertraline HCl (Zoloft) 50 mg PO DAILY [facility] Last Admin: 05/16/17 10:42 Dose: 50 mg Warfarin Sodium (Coumadin) 5 mg PO 1800 [facility] PRN Reason: Protocol Last Admin: 05/15/17 17:38 Dose: 5 mg Zolpidem Tartrate (Ambien) 5 mg PO HS PRN; Protocol PRN Reason: Insomnia Last Admin: 05/15/17 23:11 Dose: 5 mg Results - Vital Signs Recent Vital Signs: Last Vital Signs Temp 98.6 F 05/16/17 11:47 Pulse 65 05/16/17 11:47 Resp 16 05/16/17 11:47 BP 135/65 05/16/17 11:47 Pulse Ox 96 05/16/17 06:00 - Labs Result Diagrams: 05/13/17 06:00 05/16/17 05:15 Labs: Laboratory Results - last 24 hr 05/15/17 05/15/17 05/16/17 16:09 21:21 05:15 PT INR Sodium 134 Potassium 3.5 L Chloride 98 Carbon Dioxide 26 Anion Gap 14 BUN 14 Creatinine 1.0 Est GFR ( Amer) > 60 Est GFR (Non-Af Amer) 55 POC Glucose (mg/dL) 110 168 H Random Glucose 123 H Calcium 9.4 Total Bilirubin 0.9 AST 40 H ALT 36 Alkaline Phosphatase 97 Troponin I 2.80 H* D Total Protein 6.4 Albumin 3.5 Globulin 2.9 Albumin/Globulin Ratio 1.2 05/16/17 05/16/17 05/16/17 05:15 07:48 11:47 PT 16.6 H INR 1.50 H Sodium Potassium Chloride Carbon Dioxide Anion Gap BUN Creatinine Est GFR ( Amer) Est GFR (Non-Af Amer) POC Glucose (mg/dL) 156 H 230 H Random Glucose Calcium Total Bilirubin AST ALT Alkaline Phosphatase Troponin I Total Protein Albumin Globulin Albumin/Globulin Ratio <Beti Hackett A - Last Filed: 05/16/17 16:24> History of Present Illness - History of Present Illness History of Present Illness: see dictation note pt was seen with PUBLISHING AGENT Meds - Medications Medications: Current Medications Acetaminophen (Tylenol 325mg Tab) 650 mg PO Q6H PRN PRN Reason: Pain, moderate (4-7) Albuterol/Ipratropium (Duoneb 3 Mg/0.5 Mg (3 Ml) Ud) 3 ml IH [id number] [facility] Last Admin: 05/16/17 13:43 Dose: 3 ml Aspirin (Aspirin Chewable) 81 mg PO DAILY [facility] Last Admin: 05/16/17 10:42 Dose: 81 mg Atorvastatin Calcium (Lipitor) 20 mg PO DAILY [facility] Last Admin: 05/16/17 10:42 Dose: 20 mg Carvedilol (Coreg) 12.5 mg PO BID [facility] Last Admin: 05/16/17 10:45 Dose: 12.5 mg Digoxin (Lanoxin) 0.25 mg PO Q48H [facility] Last Admin: 05/16/17 14:30 Dose: 0.25 mg Diltiazem HCl (Cardizem Cd) 180 mg PO DAILY [facility] Last Admin: 05/16/17 10:43 Dose: 180 mg Docusate Sodium (Colace) 100 mg PO BID [facility] Last Admin: 05/16/17 10:43 Dose: 100 mg Famotidine (Pepcid) 40 mg PO DAILY [facility] Last Admin: 05/16/17 10:42 Dose: 40 mg Ferrous Sulfate (Feosol) 324 mg PO DAILY [facility] Last Admin: 05/16/17 10:42 Dose: 324 mg Furosemide (Lasix) 40 mg PO BID [facility] Last Admin: 05/16/17 10:42 Dose: 40 mg Glipizide (Glucotrol) 5 mg PO DAILY [facility] Last Admin: 05/16/17 10:42 Dose: 5 mg Guaifenesin (Robitussin) 100 mg PO Q4H PRN PRN Reason: Cough Last Admin: 05/15/17 22:09 Dose: 100 mg Hydralazine HCl (Apresoline) 25 mg PO TID [facility] Last Admin: 05/16/17 14:30 Dose: 25 mg Meropenem 500 mg/ Sodium (Chloride) 50 mls @ 100 mls/hr IVPB Q8 [facility] PRN Reason: Protocol Stop: 05/18/17 22:01 Last Admin: 05/16/17 14:30 Dose: 100 mls/hr Insulin Detemir (Levemir) 12 unit SC HS [facility] Last Admin: 05/15/17 21:31 Dose: Not Given Insulin Human Lispro (Humalog Low) 0 units SC ACHS [facility] PRN Reason: Protocol Last Admin: 05/16/17 12:55 Dose: 2 units Lidocaine (Lidoderm) 1 ea TD DAILY [facility] Last Admin: 05/16/17 10:41 Dose: 1 ea Lisinopril (Zestril) 20 mg PO DAILY [facility] Last Admin: 05/16/17 10:43 Dose: 20 mg Loratadine (Claritin) 10 mg PO DAILY [facility] Last Admin: 05/16/17 10:42 Dose: 10 mg Magnesium Oxide (Mag-Ox) 400 mg PO DAILY [facility] Last Admin: 05/16/17 10:42 Dose: 400 mg Montelukast Sodium (Singulair) 10 mg PO DAILY [facility] Last Admin: 05/16/17 10:42 Dose: 10 mg Nitroglycerin (Nitrostat Sl Tab) 0.4 mg SL Q5M PRN PRN Reason: chest pain Non-Formulary Medication (Biotin [Biotin]) 100 mg PO DAILY [facility] Last Admin: 05/16/17 10:44 Dose: Not Given Non-Formulary Medication (Linagliptin [Tradjenta]) 5 mg PO DAILY [facility] Last Admin: 05/16/17 10:46 Dose: Not Given Potassium Chloride (Klor-Con 10) 10 meq PO BRK [facility] Last Admin: 05/16/17 07:57 Dose: 10 meq Prasugrel (Effient) 10 mg PO DAILY [facility] Last Admin: 05/16/17 10:42 Dose: 10 mg Sertraline HCl (Zoloft) 50 mg PO DAILY [facility] Last Admin: 05/16/17 10:42 Dose: 50 mg Warfarin Sodium (Coumadin) 5 mg PO 1800 [facility] PRN Reason: Protocol Last Admin: 05/15/17 17:38 Dose: 5 mg Zolpidem Tartrate (Ambien) 5 mg PO HS PRN; Protocol PRN Reason: Insomnia Last Admin: 05/15/17 23:11 Dose: 5 mg Results - Vital Signs Recent Vital Signs: Last Vital Signs Temp 98.6 F 05/16/17 11:47 Pulse 70 05/16/17 14:30 Resp 16 05/16/17 11:47 BP 119/64 05/16/17 14:30 Pulse Ox 96 05/16/17 06:00 - Labs Result Diagrams: 05/13/17 06:00 05/16/17 05:15 Labs: Laboratory Results - last 24 hr 05/15/17 05/16/17 05/16/17 21:21 05:15 05:15 PT 16.6 H INR 1.50 H Sodium 134 Potassium 3.5 L Chloride 98 Carbon Dioxide 26 Anion Gap 14 BUN 14 Creatinine 1.0 Est GFR ( Amer) > 60 Est GFR (Non-Af Amer) 55 POC Glucose (mg/dL) 168 H Random Glucose 123 H Calcium 9.4 Total Bilirubin 0.9 AST 40 H ALT 36 Alkaline Phosphatase 97 Troponin I 2.80 H* D Total Protein 6.4 Albumin 3.5 Globulin 2.9 Albumin/Globulin Ratio 1.2 05/16/17 05/16/17 05/16/17 07:48 11:47 16:05 PT INR Sodium Potassium Chloride Carbon Dioxide Anion Gap BUN Creatinine Est GFR ( Amer) Est GFR (Non-Af Amer) POC Glucose (mg/dL) 156 H 230 H 154 H Random Glucose Calcium Total Bilirubin AST ALT Alkaline Phosphatase Troponin I Total Protein Albumin Globulin Albumin/Globulin Ratio
[2017-05-16] MEDS: Digoxin 250 mcg (0.25 mg) Tab PO SCH (14:30)
--- NOTE | 2017-05-16 17:14 | CP.PCM.PN ---
Subjective - Date & Time of Evaluation Date of Evaluation: 05/16/17 Time of Evaluation: 17:06 - Subjective Subjective: Infectious Disease Follow Up: May 16, 2017 72 yo female with extensive past medical history that includes coronary artery disease, cardiomyopathy, pulmonary hypertension, atrial fibrillation, chronic obstructive lung disease, diabetes mellitus, and multiple attempts at suicide. The patient was initially admitted for a suicide attempt where she cut her wrist after having problems with her family on Thanksgiving. She is currently on one-to-one evaluation. During this hospitalization, the patient was found to have ESBL+ E. coli in the urine. The patient was on the medical floor in early April 2017 with a finding of ESBL+ E. Coli in the urine as well. She received Meropenem for treatment at this time. Currently on Meropenem and Nitrofuratoin for treatment. Objective - Vital Signs/Intake and Output Vital Signs (last 24 hours): Temp Pulse Resp BP Pulse Ox 98.6 F 70 16 119/64 96 05/16/17 11:47 05/16/17 14:30 05/16/17 11:47 05/16/17 14:30 05/16/17 06:00 Intake and Output: 05/16/17 05/16/17 06:59 18:59 Intake Total 320 300 Output Total 0 600 Balance 320 -300 - Medications Medications: Current Medications Acetaminophen (Tylenol 325mg Tab) 650 mg PO Q6H PRN PRN Reason: Pain, moderate (4-7) Albuterol/Ipratropium (Duoneb 3 Mg/0.5 Mg (3 Ml) Ud) 3 ml IH [id number] [facility] Last Admin: 05/16/17 13:43 Dose: 3 ml Aspirin (Aspirin Chewable) 81 mg PO DAILY [facility] Last Admin: 05/16/17 10:42 Dose: 81 mg Atorvastatin Calcium (Lipitor) 20 mg PO DAILY [facility] Last Admin: 05/16/17 10:42 Dose: 20 mg Carvedilol (Coreg) 12.5 mg PO BID [facility] Last Admin: 05/16/17 10:45 Dose: 12.5 mg Digoxin (Lanoxin) 0.25 mg PO Q48H [facility] Last Admin: 05/16/17 14:30 Dose: 0.25 mg Diltiazem HCl (Cardizem Cd) 180 mg PO DAILY [facility] Last Admin: 05/16/17 10:43 Dose: 180 mg Docusate Sodium (Colace) 100 mg PO BID [facility] Last Admin: 05/16/17 10:43 Dose: 100 mg Famotidine (Pepcid) 40 mg PO DAILY [facility] Last Admin: 05/16/17 10:42 Dose: 40 mg Ferrous Sulfate (Feosol) 324 mg PO DAILY [facility] Last Admin: 05/16/17 10:42 Dose: 324 mg Furosemide (Lasix) 40 mg PO BID [facility] Last Admin: 05/16/17 10:42 Dose: 40 mg Glipizide (Glucotrol) 5 mg PO DAILY [facility] Last Admin: 05/16/17 10:42 Dose: 5 mg Guaifenesin (Robitussin) 100 mg PO Q4H PRN PRN Reason: Cough Last Admin: 05/15/17 22:09 Dose: 100 mg Hydralazine HCl (Apresoline) 25 mg PO TID [facility] Last Admin: 05/16/17 14:30 Dose: 25 mg Meropenem 500 mg/ Sodium (Chloride) 50 mls @ 100 mls/hr IVPB Q8 [facility] PRN Reason: Protocol Stop: 05/18/17 22:01 Last Admin: 05/16/17 14:30 Dose: 100 mls/hr Insulin Detemir (Levemir) 12 unit SC HS [facility] Last Admin: 05/15/17 21:31 Dose: Not Given Insulin Human Lispro (Humalog Low) 0 units SC ACHS [facility] PRN Reason: Protocol Last Admin: 05/16/17 12:55 Dose: 2 units Lidocaine (Lidoderm) 1 ea TD DAILY [facility] Last Admin: 05/16/17 10:41 Dose: 1 ea Lisinopril (Zestril) 20 mg PO DAILY [facility] Last Admin: 05/16/17 10:43 Dose: 20 mg Loratadine (Claritin) 10 mg PO DAILY [facility] Last Admin: 05/16/17 10:42 Dose: 10 mg Magnesium Oxide (Mag-Ox) 400 mg PO DAILY [facility] Last Admin: 05/16/17 10:42 Dose: 400 mg Montelukast Sodium (Singulair) 10 mg PO DAILY [facility] Last Admin: 05/16/17 10:42 Dose: 10 mg Nitroglycerin (Nitrostat Sl Tab) 0.4 mg SL Q5M PRN PRN Reason: chest pain Non-Formulary Medication (Biotin [Biotin]) 100 mg PO DAILY [facility] Last Admin: 05/16/17 10:44 Dose: Not Given Non-Formulary Medication (Linagliptin [Tradjenta]) 5 mg PO DAILY [facility] Last Admin: 05/16/17 10:46 Dose: Not Given Potassium Chloride (Klor-Con 10) 10 meq PO BRK [facility] Last Admin: 05/16/17 07:57 Dose: 10 meq Prasugrel (Effient) 10 mg PO DAILY [facility] Last Admin: 05/16/17 10:42 Dose: 10 mg Sertraline HCl (Zoloft) 50 mg PO DAILY [facility] Last Admin: 05/16/17 10:42 Dose: 50 mg Warfarin Sodium (Coumadin) 5 mg PO 1800 [facility] PRN Reason: Protocol Last Admin: 05/15/17 17:38 Dose: 5 mg Zolpidem Tartrate (Ambien) 5 mg PO HS PRN; Protocol PRN Reason: Insomnia Last Admin: 05/15/17 23:11 Dose: 5 mg - Labs Labs: 05/13/17 06:00 05/16/17 05:15 PT 16.6 SECONDS (9.4-12.5) H 05/16/17 05:15 INR 1.50 (0.93-1.08) H 05/16/17 05:15 APTT 53.0 Seconds (25.1-36.5) H 05/12/17 21:00 - Constitutional Appears: Non-toxic, No Acute Distress, Chronically Ill - Head Exam Head Exam: ATRAUMATIC, NORMOCEPHALIC - Eye Exam Eye Exam: EOMI, PERRL Pupil Exam: NORMAL ACCOMODATION, PERRL - ENT Exam ENT Exam: Mucous Membranes Moist, Normal External Ear Exam, TM's Normal Bilaterally - Neck Exam Neck Exam: Full ROM, Normal Inspection - Respiratory Exam Respiratory Exam: Clear to Ausculation Bilateral, NORMAL BREATHING PATTERN. absent: Rales, Rhonchi, Wheezes - Cardiovascular Exam Cardiovascular Exam: REGULAR RHYTHM, RRR, +S1, +S2 - GI/Abdominal Exam GI & Abdominal Exam: Soft, Normal Bowel Sounds. absent: Distended, Tenderness - Extremities Exam Extremities Exam: Full ROM, Normal Inspection - Neurological Exam Neurological Exam: Alert, Awake, CN II-XII Intact, Oriented x3 - Psychiatric Exam Psychiatric exam: Depressed - Skin Skin Exam: Intact, Normal Color Assessment and Plan - Assessment and Plan (Free Text) Assessment: 72 yo female with original admission for suicide attempt by slitting wrists. She was found to have a UTI again with ESBL + E. Coli. The patient had an admission here less than a month ago for similar infection. The patient was treated with 7 days of Meropenem at that time. Continue with Meropenem and Nitrofuratoin for treatment. The patient's cultures on the last hospitalization had shown clearance of the infection prior to discharge. The patient may need PO Nitrofuratoin for prolonged treatment after the completion of IV Meropenem. Thank you for allowing me to participate in the care of the patient, we will follow with you.
--- NOTE | 2017-05-16 18:30 | PN ---
FOLLOWUP NOTE SUBJECTIVE: The patient is a 72-year-old female. This is second admission status post wrist laceration. The patient was admitted to the psychiatric inpatient unit on 04/18/2017 because of suicidal attempt and the patient wanted to cut her wrist. Unfortunately, the patient had some medical issues and was transferred to the medical side after that and the patient was released from the hospital on 04/27/2017 because the patient denied being depressed and denied any thoughts of killing herself and was improving very much. The patient came back to the hospital on 05/12/2017 status post self-inflicted wrist laceration. The patient required 3 sutures in the emergency room. The patient made it clear that she wanted to prior to coming to the hospital. Right now, the patient has troponin elevated and the patient has chest pain and ST-elevation myocardial infarction. Notes from medical staff as well as from the book retailer reviewed. As per book retailer, the patient might require recatheterization. The patient is not considered to go to the psychiatric inpatient unit at the present moment. PHYSICAL EXAMINATION: VITAL SIGNS: Stable. Temperature 98.6, pulse is 70, and blood pressure 119/64. MENTAL STATUS EXAMINATION: The patient is superficially cooperative, intermittent eye contact. The patient reports her mood to be "great." Affect was labile. Thought process was circumstantial. Thought content; the patient denied visual, auditory or tactile hallucinations, denies paranoid ideation. The patient does not appear to be psychotic, but seems to have episodes where she does not make sense. For example, the patient received consent for treatment into the psychiatric inpatient unit. The patient states that she has future-oriented plans, but the patient made it clear before coming to the hospital, the patient wanted to end up her life. MEDICATIONS: Reviewed. Tylenol, DuoNeb, aspirin, Lipitor, Coreg, digoxin, Cardizem, Colace, Pepcid, Feosol, Lasix, Glucotrol, Robitussin, Levemir, Humalog, lidocaine, loratadine, lisinopril, magnesium oxide, meropenem, Singulair, nitroglycerine, and Biotin. The patient is on Zoloft 50 mg daily, prasugrel, warfarin, and Ambien. The patient is also on nortriptyline 10 mg three times a day. This mortgage or loan underwriter is not sure who initiated this medication. In any case, this medication could give QTc prolongation and this mortgage or loan underwriter would not recommend this medication as of now. LABORATORY DATA: Reviewed. The patient had troponin elevated, today is 2.8, is trending down to compare with yesterday which was 4.93. Urinalysis showed E. coli urinary tract infection. Reports reviewed. Discussed with Dr. Lebron. IMPRESSION: Rule out major depressive disorder, rule out adjustment disorder with depressed and anxious mood. The patient is status post self-inflicted bilateral wrist lacerations, rule out suicidal attempt. The patient has a history of depression and poor impulse control. PLAN: This mortgage or loan underwriter discontinued nortriptyline because it could give cardiac side effect and QTc prolongation. This mortgage or loan underwriter Zoloft only. The patient had [place] Information [employer]ker[employer]'s notes reviewed. Discussed with Dr. Lebron as well. The patient refused to sign consent for treatment. The patient needs to stay in the psychiatric inpatient unit because this is the second time when the patient tried to cut her wrist. If the patient refused to sign consent with treatment, screening process needs to be initiated. Should you have any questions, give me a call back. will follow up on this patient over the weekend. Beti Hackett MD
[2017-05-16] MEDS: Insulin Detemir 100 units/ml Vial (Levemir) SC SCH (21:46)
--- NOTE | 2017-05-16 23:05 | PN ---
DATE: SUBJECTIVE: The patient is a 72-year-old female. The patient is seen and examined on the bedside. Looking comfortable. No nausea, vomiting or diarrhea. No hematuria or hematochezia. No swelling of the legs. No chest pain. No palpitations. Complaining about back pain. Having Lidoderm patch, now asking for the Tylenol. PHYSICAL EXAMINATION VITAL SIGNS: Temperature 98, pulse 80, blood pressure 132/61, respiratory rate 18. HEENT: Head normocephalic, atraumatic. Eyes, PERRLA. Extraocular muscles are intact. Conjunctivae clear. Nose patent. Mucous membranes moist. NECK: Supple. No carotid bruits. No JVD or thyromegaly. CHEST: Bilaterally symmetrical. HEART: S1 and S2 positive. LUNGS: Clear to auscultation. ABDOMEN: Soft. Positive bowel sounds. No organomegaly. EXTREMITIES: No edema. No cyanosis except the left wrist has 3 stitches. NEUROLOGIC: The patient is awake and alert. Moving all 4 extremities. No focal deficit. MEDICATIONS: Ambien, hydralazine, aspirin, Biotene, Cardizem, Claritin, Colace, Coreg, Coumadin, DuoNeb, Effient, Feosol, Glucotrol, insulin, potassium, Coumadin, Pepcid, Robitussin, Singulair, and Zoloft. LABORATORY DATA: White blood cell 10.8, hemoglobin 9.4, hematocrit 27.9 and platelets 349. Glucose 154, sodium 134, potassium 3.5, BUN 14, creatinine 1.0, troponin is 2.80, INR is 1.50. ASSESSMENT AND PLAN: Ms. Mallorie Francis is a 72-year-old lady with multiple medical problems, was admitted for suicide attempt by slitting wrist, have urinary tract infection with ESBL plus Escherichia coli. The patient had admission here less than 1 month ago for similar infection. The patient was treated for 7 days of meropenem at that time. We will continue with the meropenem and nitrofurantoin for treatment. Cultures on the last hospitalizations had been showing clearance of the infection prior to discharge. The patient may need p.o. nitrofurantoin for a prolonged treatment after completion of IV meropenem as per Infectious Disease, Dr. Cohn. Seen by Psychiatrist Dr. Beti Hackett, Batch Operator, Dr. Nas Kemp. The patient had depression. Chest pain, positive troponin, non-ST elevation myocardial infarction. The patient is on medical clear for Psych. Severe coronary artery disease, status post recent RCA, PCI, difficult and complex lesion as per Batch Operator. Remote coronary artery bypass grafting, myocardial infarction, congestive heart failure, defibrillation, chronic obstructive pulmonary disease stenting, extensive bowel resection, former smoker, homeless, social issues. Continue cardiac medications, resume aspirin. Medical therapy for coronary artery disease as per Batch Operator. May require re-cath, but tried to be conservative at this time. Getting antibiotics and wound care. Gastrointestinal and deep venous thrombosis prophylaxis. Monitoring INR. May be we have to increase her Coumadin. We will follow up. Tanisha Lebron MD
[2017-05-17] MEDS: Albuterol-Ipratrop 3 mg / 0.5 (3 ml) UD IH SCH ×4 (02:20→19:42)
--- NOTE | 2017-05-17 02:50 | PN ---
DATE: 05/16/2017 PULMONARY PROGRESS NOTE REFERRING PHYSICIAN: Dr. Lebron SUBJECTIVE: She is lying in the bed, head at 45 degrees, sleepy, arousable. Night was unremarkable. Cough is better. No nausea. No vomiting. No diarrhea. No leg pain or leg swelling. OBJECTIVE GENERAL: In no acute distress. VITAL SIGNS: Temperature is 98, heart rate is 80, respiratory rate is 18, blood pressure 132/61, and pulse ox 96% on nasal cannula. HEENT: Moist mucous membranes. Crowded airway. Mallampati score is 4. NECK: Supple. No JVD. LUNGS: Has a fair airflow with few rhonchi. HEART: S1 and S2. ABDOMEN: Soft and nontender. No organomegaly. EXTREMITIES: There is no edema. NEUROLOGICAL: Awake and alert. Follow simple commands. MEDICATIONS: She is on Ambien 5 mg at bedtime p.r.n., hydralazine 25 mg 3 times a day, aspirin 81 mg daily, Cardizem CD 80 mg daily, Claritin 10 mg daily, Colace 100 mg twice a day, Coreg 12.5 mg twice a day, Coumadin 7.5 mg will be given today, albuterol/Atrovent nebulizer q. 6 hours, Effient 10 mg daily, ferrous sulfate 324 mg daily, glipizide 5 mg daily, insulin coverage, potassium 10 mEq daily, digoxin 0.25 mg q. 48 hours, Lasix 40 mg twice a day, Levemir 12 units subcu at bedtime, Lidoderm patch to the affected area, Tradjenta 5 mg daily, Lipitor 20 mg daily, magnesium oxide 400 mg daily, meropenem 500 mg q. 8 hours, nitroglycerin p.r.n. basis, Pepcid 40 mg daily, Robitussin 100 mg q. 4 hours, Singulair 10 mg daily, Tylenol p.r.n., Zestril 20 mg daily, Zoloft 50 mg daily. LABORATORY DATA: Show INR today 1.50. Sodium 134, potassium 3.5, chloride 98, bicarbonate 26, BUN 14, creatinine 1.0, glucose 123, calcium 9.4, AST 40, ALT 36, alkaline phosphate 97. Troponin 2.80, albumin 3.5. Urine culture has E. coli. IMPRESSION AND PLAN: Status post suicidal attempt, myocardial infarction, extensive coronary artery disease, history of coronary stent, cardiomyopathy, obstructive lung disease, may have sleep apnea syndrome, atrial fibrillation, hypertension, diabetes and depression. Pulmonary point, doing okay, keep head at 45 degrees, bronchodilator, sleep apnea precaution while sedation. Psychiatry and Cardiology followup . Thank you and we will follow with you. Rosina Gabriel MD
[2017-05-17] MEDS: Meropenem 500 MG in Sodium Chloride 0.9% 50 ML IVPB SCH ×3 (06:04→23:11)
[2017-05-17 07:44] LABS: HEMATOCRIT 31.2 % (36.0-48.0); MEAN CELL VOLUME 92.6 fl (80.0-105.0); MEAN CORPUSCULAR HGB CONC 32.4 g/dl (31.0-37.0); MEAN PLATELET VOLUME 9.2 fl (7.0-11.0); WHITE BLOOD COUNT 8.6 10^3/ul (4.5-11.0)
[2017-05-17 07:59] LABS: BLOOD UREA NITROGEN 16 mg/dL (7-21); CALCIUM 9.4 mg/dL (8.4-10.5); CARBON DIOXIDE 25 mmol/L (21-33); CHLORIDE 97 mmol/L (98-107); GFR AFRICAN-AMERICAN > 60; GLUCOSE,RANDOM 123 mg/dL (70-110); POTASSIUM 3.6 mmol/L (3.6-5.0); SODIUM 134 mmol/L (132-148)
[2017-05-17] MEDS: Potassium Chloride 10 mEq ER Tab PO SCH (08:05)
[2017-05-17] MEDS: Insulin Lispro (humaLOG) LOW Coverage SC SCH ×4 (08:06→23:11)
[2017-05-17 08:14] LABS: INR 1.43 (0.93-1.08)
[2017-05-17 08:20] LABS: TROPONIN I 2.29 ng/mL
[2017-05-17] MEDS: Magnesium Oxide 400 mg Tab UD PO SCH (09:49)
[2017-05-17] MEDS: Lidocaine 5% Patch TD SCH (09:54)
[2017-05-17] MEDS: Non Formulary Medication (Linagliptin [Tradjenta] 5 MG) PO SCH (09:58)
[2017-05-17] MEDS: BIOTIN PO SCH (09:58)
--- NOTE | 2017-05-17 11:29 | PN ---
DATE: 05/17/2017 SUBJECTIVE: The patient is seen lying in bed on telemetry. She has had no further chest discomfort. She feels really comfortable. She appears to be in fairly good spirits. CURRENT MEDICATION: Include hydralazine 25 mg b.i.d., aspirin 81 mg daily, Cardizem 180 mg daily, Claritin, Colace, Carvedilol 12.5 mg b.i.d., warfarin, DuoNeb inhaler, Effient 10 mg daily, Glucotrol 5 mg daily, insulin coverage potassium, digoxin 0.25 mg every 48 hours, Lasix 40 mg b.i.d., Levemir insulin, Tradjenta, Lipitor 20 mg daily, magnesium, meropenem, Singulair, Zestril 20 mg daily, and Zoloft 50 mg daily. OBJECTIVE/PHYSICAL EXAMINATION: GENERAL: She is a middle-aged woman who appears comfortable at rest. VITAL SIGNS: Her blood pressure is 150/80 with a pulse of 84, ventricular pacing and respirations are 16. She is afebrile. HEENT: No JVD. CHEST: Bilateral scattered rhonchi. HEART: PMI displaced laterally with soft tones noted. ABDOMEN: Soft and nontender with normoactive bowel sounds. EXTREMITIES: No edema. DIAGNOSTIC DATA: Potassium is 3.6 and BUN and creatinine are 16 and 0.9. Troponin is 2.29. Hemoglobin and hematocrit are 10.1 and 31.2 with a white count of 8.6 and platelet count of 291,000. INR is 1.43. IMPRESSION: 1. Recent suicide attempt with chronic depression. 2. [id number] elevation myocardial infraction. 3. Severe coronary artery disease with complex anatomy status post recent percutaneous coronary intervention. 4. Remote bypass surgery. 5. Severe left ventricular dysfunction. 6. Chronic systolic congestive heart failure. 7. Atrial fibrillation. 8. Rest of problems as noted. RECOMMENDATIONS: At this time, a conservative management for cardiac issues will be planned given the complexity of her coronary anatomy. There appear to be limited benefit to repeat endovascular procedures at this time. Presently, her Carvedilol dose will be increased for control of angina and cardio protection. Increased ambulatory is advised. We will continue to follow her and will make further recommendations as appropriate. Dwight Patiño MD [facility] # [phone]
[2017-05-17] MEDS: diltiaZEM 180 mg/24 Hours CD Cap PO SCH (12:10)
--- NOTE | 2017-05-17 16:38 | CP.PCM.PN ---
Subjective - Date & Time of Evaluation Date of Evaluation: 05/17/17 Time of Evaluation: 15:30 - Subjective Subjective: Infectious Disease Follow Up: May 17, 2017 72 yo female with extensive past medical history that includes coronary artery disease, cardiomyopathy, pulmonary hypertension, atrial fibrillation, chronic obstructive lung disease, diabetes mellitus, and multiple attempts at suicide. The patient was initially admitted for a suicide attempt where she cut her wrist after having problems with her family on Thanksgiving. She is currently on one-to-one evaluation. During this hospitalization, the patient was found to have ESBL+ E. coli in the urine. The patient was on the medical floor in early April 2017 with a finding of ESBL+ E. Coli in the urine as well. She received Meropenem for treatment at this time. Currently on Meropenem and Nitrofuratoin for treatment. Objective - Vital Signs/Intake and Output Vital Signs (last 24 hours): Temp Pulse Resp BP Pulse Ox 97.8 F 66 18 104/42 L 97 05/17/17 12:00 05/17/17 13:28 05/17/17 12:00 05/17/17 13:28 05/17/17 09:00 Intake and Output: 05/17/17 05/17/17 06:59 18:59 Intake Total 220 Output Total 0 Balance 220 - Medications Medications: Current Medications Acetaminophen (Tylenol 325mg Tab) 650 mg PO Q6H PRN PRN Reason: Pain, moderate (4-7) Albuterol/Ipratropium (Duoneb 3 Mg/0.5 Mg (3 Ml) Ud) 3 ml IH [id number] [facility] Last Admin: 05/17/17 13:44 Dose: 3 ml Aspirin (Aspirin Chewable) 81 mg PO DAILY [facility] Last Admin: 05/17/17 09:46 Dose: 81 mg Atorvastatin Calcium (Lipitor) 20 mg PO DAILY [facility] Last Admin: 05/17/17 09:48 Dose: 20 mg Carvedilol (Coreg) 25 mg PO BID [facility] Last Admin: 05/17/17 09:50 Dose: 25 mg Digoxin (Lanoxin) 0.25 mg PO Q48H [facility] Last Admin: 05/16/17 14:30 Dose: 0.25 mg Diltiazem HCl (Cardizem Cd) 180 mg PO DAILY [facility] Last Admin: 05/17/17 12:10 Dose: 180 mg Docusate Sodium (Colace) 100 mg PO BID [facility] Last Admin: 05/17/17 09:48 Dose: 100 mg Famotidine (Pepcid) 40 mg PO DAILY [facility] Last Admin: 05/17/17 09:48 Dose: 40 mg Ferrous Sulfate (Feosol) 324 mg PO DAILY [facility] Last Admin: 05/17/17 09:50 Dose: 324 mg Furosemide (Lasix) 40 mg PO BID [facility] Last Admin: 05/17/17 09:47 Dose: 40 mg Glipizide (Glucotrol) 5 mg PO DAILY [facility] Last Admin: 05/17/17 09:47 Dose: 5 mg Guaifenesin (Robitussin) 100 mg PO Q4H PRN PRN Reason: Cough Last Admin: 05/15/17 22:09 Dose: 100 mg Hydralazine HCl (Apresoline) 25 mg PO TID [facility] Last Admin: 05/17/17 13:28 Dose: 25 mg Meropenem 500 mg/ Sodium (Chloride) 50 mls @ 100 mls/hr IVPB Q8 [facility] PRN Reason: Protocol Stop: 05/18/17 22:01 Last Admin: 05/17/17 13:29 Dose: 100 mls/hr Insulin Detemir (Levemir) 12 unit SC HS [facility] Last Admin: 05/16/17 21:46 Dose: 12 unit Insulin Human Lispro (Humalog Low) 0 units SC ACHS [facility] PRN Reason: Protocol Last Admin: 05/17/17 12:11 Dose: 3 units Lidocaine (Lidoderm) 1 ea TD DAILY [facility] Last Admin: 05/17/17 09:54 Dose: 1 ea Lisinopril (Zestril) 20 mg PO DAILY [facility] Last Admin: 05/17/17 12:11 Dose: 20 mg Loratadine (Claritin) 10 mg PO DAILY [facility] Last Admin: 05/17/17 09:49 Dose: 10 mg Magnesium Oxide (Mag-Ox) 400 mg PO DAILY [facility] Last Admin: 05/17/17 09:49 Dose: 400 mg Montelukast Sodium (Singulair) 10 mg PO DAILY [facility] Last Admin: 05/17/17 09:49 Dose: 10 mg Nitroglycerin (Nitrostat Sl Tab) 0.4 mg SL Q5M PRN PRN Reason: chest pain Non-Formulary Medication (Biotin [Biotin]) 100 mg PO DAILY [facility] Last Admin: 05/17/17 09:58 Dose: Not Given Non-Formulary Medication (Linagliptin [Tradjenta]) 5 mg PO DAILY [facility] Last Admin: 05/17/17 09:58 Dose: Not Given Potassium Chloride (Klor-Con 10) 10 meq PO BRK [facility] Last Admin: 05/17/17 08:05 Dose: 10 meq Prasugrel (Effient) 10 mg PO DAILY [facility] Last Admin: 05/17/17 09:49 Dose: 10 mg Sertraline HCl (Zoloft) 50 mg PO DAILY [facility] Last Admin: 05/17/17 09:49 Dose: 50 mg Warfarin Sodium (Coumadin) 7.5 mg PO 1800 [facility] Zolpidem Tartrate (Ambien) 5 mg PO HS PRN; Protocol PRN Reason: Insomnia Last Admin: 05/16/17 22:55 Dose: 5 mg - Labs Labs: 05/17/17 06:30 05/17/17 06:30 PT 15.9 SECONDS (9.4-12.5) H 05/17/17 06:30 INR 1.43 (0.93-1.08) H 05/17/17 06:30 APTT 53.0 Seconds (25.1-36.5) H 05/12/17 21:00 - Constitutional Appears: Non-toxic, No Acute Distress, Chronically Ill - Head Exam Head Exam: ATRAUMATIC, NORMOCEPHALIC - Eye Exam Eye Exam: EOMI, PERRL Pupil Exam: NORMAL ACCOMODATION, PERRL - ENT Exam ENT Exam: Mucous Membranes Moist, Normal External Ear Exam, TM's Normal Bilaterally - Neck Exam Neck Exam: Full ROM, Normal Inspection - Respiratory Exam Respiratory Exam: Clear to Ausculation Bilateral, NORMAL BREATHING PATTERN. absent: Rales, Rhonchi, Wheezes - Cardiovascular Exam Cardiovascular Exam: REGULAR RHYTHM, RRR, +S1, +S2 - GI/Abdominal Exam GI & Abdominal Exam: Soft, Normal Bowel Sounds. absent: Distended, Tenderness - Extremities Exam Extremities Exam: Full ROM, Normal Inspection - Neurological Exam Neurological Exam: Alert, Awake, CN II-XII Intact, Oriented x3 - Psychiatric Exam Psychiatric exam: Normal Affect, Normal Mood - Skin Skin Exam: Intact, Normal Color Assessment and Plan - Assessment and Plan (Free Text) Assessment: 72 yo female with original admission for suicide attempt by slitting wrists. She was found to have a UTI again with ESBL + E. Coli. The patient had an admission here less than a month ago for similar infection. The patient was treated with 7 days of Meropenem at that time. Continue with Meropenem and Nitrofuratoin for treatment. The patient's cultures on the last hospitalization had shown clearance of the infection prior to discharge. The patient may need PO Nitrofuratoin for prolonged treatment after the completion of IV Meropenem. Repeat urine culture in AM. Thank you for allowing me to participate in the care of the patient, we will follow with you.
--- NOTE | 2017-05-17 21:32 | PN ---
PULMONARY PROGRESS NOTE DATE OF SERVICE: 05/17/2017 REFERRING PHYSICIAN: Dr. Lebron. SUBJECTIVE: She is lying in the bed, sleepy, arousable. No headache or rhinitis. No nausea. No vomiting. No diarrhea. No leg pain or leg swelling. Left wrist wound is healing well. OBJECTIVE: GENERAL: In no acute distress. VITAL SIGNS: Temperature 98, heart rate is 78, respiratory rate is 20, blood pressure 120/52, pulse oximetry is 97% on room air. HEENT: Moist mucous membranes. Crowded airway. NECK: Supple. No JVD. LUNGS: Fair airflow with a few rhonchi. HEART: S1 and S2. ABDOMEN: Soft, nontender, no organomegaly. EXTREMITIES: There is no edema. NEUROLOGIC: Awake, alert, follows simple command. MEDICATIONS: She is on Ambien 5 mg at bedtime p.r.n., hydralazine 25 mg 3 times a day, aspirin 81 mg daily, Cardizem CD 180 mg daily, Claritin 10 mg daily, Colace 100 mg twice a day, Coreg 25 mg twice a day, Coumadin 7.5 mg will be given tonight, DuoNeb q.6 hours, Effient 10 mg daily, ferrous sulfate 324 mg daily, glipizide 5 mg daily, insulin coverage, potassium 10 mEq daily, digoxin 0.25 mg q.48 hours, Lasix 40 mg twice a day, Levemir 12 units subcutaneous at bedtime, Lidoderm patch daily, Tradjenta 5 mg daily, Lipitor 20 mg daily, magnesium oxide 400 mg daily, meropenem 500 mg q.8 hours, nitroglycerin p.r.n. basis, Pepcid 40 mg daily, Robitussin p.r.n. basis, Singulair 10 mg daily, Tylenol p.r.n., Zestril 20 mg daily, Zoloft 50 mg daily. LABORATORY DATA: Shows hemoglobin 10.1, hematocrit 31.2, WBC 8.6, platelet count is 291, INR 1.43, sodium 134, potassium 3.6, chloride 97, bicarbonate 25, BUN 16, creatinine 0.9, glucose 123, calcium is 9.4, troponin 2.29. Microbiology, urine has E. coli. IMPRESSION AND PLAN 1. Status post suicidal attempt. 2. Myocardial infarction. 3. Extensive coronary artery disease. 4. History of coronary stent. 5. Cardiomyopathy. 6. Obstructive lung disease, may have sleep apnea syndrome. 7. Atrial fibrillation. 8. Hypertension. 9. Diabetes. 10. Depression. PLAN: From a pulmonary point, she is doing okay. Keep head at 45 degrees, bronchodilator, diuretics, anticoagulation, INR in the morning, Psychiatry followup, fall precaution. Thank you and we will follow with you. Rosina Gabriel MD
--- NOTE | 2017-05-17 21:37 | PN ---
DATE: SUBJECTIVE: The patient is a 72-year-old female. The patient is seen and examined on the bedside. Looking comfortable. No nausea, vomiting or diarrhea. No hematuria or hematochezia. No swelling of the legs. No chest pain. No palpitations. No headache. No dizziness. PHYSICAL EXAMINATION: VITAL SIGNS: Temperature 98.6, blood pressure 150/80, pulse 84, ventricular pacing, respiratory rate 16. HEENT: Head normocephalic, atraumatic. Eyes, PERRLA. Extraocular muscles are intact. Conjunctivae clear. Nose patent. Mucous membranes moist. NECK: Supple. No carotid bruits. No JVD or thyromegaly. CHEST: Bilaterally symmetrical. HEART: S1 and S2 positive. LUNGS: Clear to auscultation. ABDOMEN: Soft. Positive bowel sounds. No organomegaly. EXTREMITIES: No edema. No cyanosis. NEUROLOGIC: The patient is awake and alert. Moving all 4 extremities. No focal deficit. MEDICATIONS: Hydralazine, aspirin, Cardizem, Claritin, Colace, carvedilol, Coumadin, Effient, Glucotrol, digoxin, Levemir, Tradjenta, magnesium, meropenem, Singulair, Zestril and Zoloft. LABORATORY DATA: White blood cell 8.6, hemoglobin 10.1, hematocrit of 31.2, platelets 291. Sodium 134, potassium 3.6, BUN 16, creatinine 0.9, glucose 150. Troponin 2.29. INR 1.43, PT 15.9. ASSESSMENT AND PLAN: Ms. Mallorie Turner is a 72-year-old lady with multiple medical problems, history of suicidal attempts x2 with chronic depression, non-ST segment elevated myocardial infarction multiple times, severe coronary artery disease with complex anatomy, status post recent percutaneous coronary intervention, history of bypass cardiac surgery, severe left ventricular dysfunction, chronic systolic congestive heart failure, atrial fibrillation on Coumadin. According to rock mason, we have to do conservative management for cardiac issues that will be planned given on the complexity of coronary anatomy. There looks like limited benefit to repeat endocervical procedures at this time. Continue carvedilol. increased the carvedilol to control the angina and cardiac protection. Increase ambulatory is advised, physical therapy. Seen by Dr. Cohn, Infectious Disease, history of urinary tract infection with ESBL plus Escherichia coli, history of similar infection 1 month ago. The patient was treated for 7 days on meropenem at that time. Continue with meropenem and nitrofurantoin for the treatment. The patient's cultures on the last hospitalization had shown clearance of the infection prior to discharge. Now getting again nitrofurantoin for a long treatment after completion of IV meropenem as per Dr. Cohn. For her psychiatric issues, plan was to send the patient to [facility], psychiatric department. Actually team came for evaluation and they called that bed is available, but the patient refused to go. Meanwhile, continue present treatment. Repeat labs. We will follow up. Tanisha Lebron MD MTDJoselin
[2017-05-17] MEDS: Insulin Detemir 100 units/ml Vial (Levemir) SC SCH (23:10)
--- NOTE | 2017-05-17 23:22 | CON ---
DATE: HISTORY OF PRESENT ILLNESS: The patient is a 72-year-old female with history of depression, anxiety, as well as recent psychiatric admission in 04/2017 due to suicide attempt, who was admitted again on 05/12/2017 after she lacerated her wrist, which required 3 sutures in the ER. Dr. Hackett's note indicated that the patient made it clear that she wants to prior coming to the hospital. The patient is being medically stabilized after having heart attack and after that needs to be psychiatrically stabilized. The patient has refused voluntary admission to Psychiatry and she is pending involuntary transfer to [facility] once she is medically cleared. I met with the patient at bedside and the patient is superficial with me. She indicates that she is "fine," indicated that she is tired. She minimizes her symptoms prior to admission. Denies feeling depressed and reports that she feels hopeful. She is well oriented to month, year, location, and circumstances. After some efforts at engaging her, she does report depression, reports family circumstances are the main reasons for her depression. She has 4 sons. One of her son has kicked her out of his home and called the police on her. Right now, she is worrying about her belongings as she was supposed to be out of her rental on 05/15/2017. The patient admits that she did cut her wrist because she believes that it was "the easiest way to get rid of all my pains." She indicates that she does not want to kill herself at this time and she wants to be strong, although she is upset and feels betrayed by her family members, specifically her children. Right now, she is tolerating her current medications. She is not hallucinating. She is coherent. Affect is constricted, but she has been in fair control in the unit. VITAL SIGNS: Reviewed by this provider. LABORATORY DATA: Also reviewed by this provider. Troponin today is 2.29. RELEVANT PSYCHIATRIC MEDICATIONS: Include Zoloft 50 mg daily. IMPRESSION: Major depressive disorder, severe; rule out adjustment disorder with depressed and anxious mood. The patient is status post suicide attempt by lacerating her wrist, which required 3 sutures. PLAN: We will continue with Zoloft. It has been documented that the patient refused voluntary transfer to psychiatric unit [facility] transfer should be progressing as the patient is medically optimized and cleared from psychiatric stabilization. The patient is not psychiatrically cleared. Once she is medically stabilized, she need to go to [facility] for further observation and treatment as this is the patient's second suicide attempt in a month. Miguelangel Roberts MD
[2017-05-18] MEDS: Meropenem 500 MG in Sodium Chloride 0.9% 50 ML IVPB SCH ×3 (06:31→22:43)
[2017-05-18 07:30] LABS: INR 1.5 (0.93-1.08)
[2017-05-18] MEDS: Albuterol-Ipratrop 3 mg / 0.5 (3 ml) UD IH SCH ×3 (07:30→19:24)
[2017-05-18] MEDS: Magnesium Oxide 400 mg Tab UD PO SCH (10:08)
[2017-05-18] MEDS: diltiaZEM 180 mg/24 Hours CD Cap PO SCH (10:10)
[2017-05-18] MEDS: Potassium Chloride 10 mEq ER Tab PO SCH (10:12)
[2017-05-18] MEDS: Insulin Lispro (humaLOG) LOW Coverage SC SCH ×4 (10:13→22:39)
[2017-05-18] MEDS: Lidocaine 5% Patch TD SCH (10:14)
--- NOTE | 2017-05-18 10:45 | PN ---
DATE: 05/18/2017 SUBJECTIVE: The patient is seen lying comfortably in bed. She has had no chest pain overnight. Her dyspnea is stable. OBJECTIVE: GENERAL: She is a middle-aged woman who appears comfortable at rest. VITAL SIGNS: Blood pressure 114/66, pulse 80, which is ventricular-paced, occasional PVCs, respirations of 14, and she is afebrile. HEENT: No JVD. CHEST: Few scattered rhonchi. HEART: PMI displaced laterally with soft tones noted. ABDOMEN: Soft and nontender with normoactive bowel sounds. EXTREMITIES: No edema. DIAGNOSTIC DATA: INR is 1.5. Rest of the blood work is pending. MEDICATIONS: Her current medications include hydralazine 25 mg t.i.d., aspirin, carvedilol 25 mg b.i.d., diltiazem 180 mg daily, Claritin, Colace, Coumadin 7.5 mg daily, DuoNeb inhaler, Effient 10 mg daily, iron supplement, Glucotrol 5 mg daily, insulin coverage, digoxin 0.25 mg every other day, potassium 10 mEq daily, Lasix 40 mg b.i.d., Levemir insulin, Tradjenta 5 mg daily, Lipitor 20 mg daily, meropenem, Singulair, and Pepcid, as well as lisinopril 20 mg daily, and Zoloft 50 mg daily. IMPRESSION: 1. Recent suicide attempt in the setting of chronic depression. 2. Non-ST segment elevation myocardial infarction with intermittent angina. 3. Severe coronary artery disease with complex anatomy, status post recent repeat percutaneous coronary intervention of right coronary artery. 4. Remote coronary bypass surgery. 5. Severe left ventricular dysfunction. 6. Chronic systolic heart failure. 7. Chronic atrial fibrillation. RECOMMENDATIONS: Her current medications will be continued at this time. Continue conservative cardiac management of her ischemic heart disease as planned for now unless she has unremitting symptoms. Maintenance of INR between 2.0 and 2.5 is advisable. Further psychological followup is advised given her wrist slashing. We will be happy to follow her and make further recommendations as appropriate. Dwight Patiño MD [facility] # [id number]
[2017-05-18] MEDS: BIOTIN PO SCH (12:51)
[2017-05-18] MEDS: Non Formulary Medication (Linagliptin [Tradjenta] 5 MG) PO SCH (12:51)
[2017-05-18] MEDS: Digoxin 250 mcg (0.25 mg) Tab PO SCH (13:52)
--- NOTE | 2017-05-18 17:05 | CP.PCM.PN ---
Subjective - Date & Time of Evaluation Date of Evaluation: 05/18/17 Time of Evaluation: 16:00 - Subjective Subjective: Infectious Disease Follow Up: May 18, 2017 72 yo female with extensive past medical history that includes coronary artery disease, cardiomyopathy, pulmonary hypertension, atrial fibrillation, chronic obstructive lung disease, diabetes mellitus, and multiple attempts at suicide. The patient was initially admitted for a suicide attempt where she cut her wrist after having problems with her family on Thanksgiving. She is currently on one-to-one evaluation. During this hospitalization, the patient was found to have ESBL+ E. coli in the urine. The patient was on the medical floor in early April 2017 with a finding of ESBL+ E. Coli in the urine as well. She received Meropenem for treatment at this time. Currently on Meropenem and Nitrofuratoin for treatment. Repeat urine culture sent. Objective - Vital Signs/Intake and Output Vital Signs (last 24 hours): Temp Pulse Resp BP Pulse Ox 97.3 F L 82 20 98/37 L 96 05/18/17 12:00 05/18/17 14:00 05/18/17 12:00 05/18/17 13:50 05/18/17 06:00 Intake and Output: 05/18/17 05/18/17 06:59 18:59 Intake Total 1200 Output Total 2200 Balance -1000 - Medications Medications: Current Medications Acetaminophen (Tylenol 325mg Tab) 650 mg PO Q6H PRN PRN Reason: Pain, moderate (4-7) Last Admin: 05/18/17 13:48 Dose: 650 mg Albuterol/Ipratropium (Duoneb 3 Mg/0.5 Mg (3 Ml) Ud) 3 ml IH [id number] [facility] Last Admin: 05/18/17 13:38 Dose: Not Given Aspirin (Aspirin Chewable) 81 mg PO DAILY [facility] Last Admin: 05/18/17 10:10 Dose: 81 mg Atorvastatin Calcium (Lipitor) 20 mg PO DAILY [facility] Last Admin: 05/18/17 10:08 Dose: 20 mg Carvedilol (Coreg) 25 mg PO BID [facility] Last Admin: 05/18/17 10:10 Dose: 25 mg Digoxin (Lanoxin) 0.25 mg PO Q48H [facility] Last Admin: 05/18/17 13:52 Dose: 0.25 mg Diltiazem HCl (Cardizem Cd) 180 mg PO DAILY [facility] Last Admin: 05/18/17 10:10 Dose: 180 mg Docusate Sodium (Colace) 100 mg PO BID [facility] Last Admin: 05/18/17 10:12 Dose: 100 mg Famotidine (Pepcid) 40 mg PO DAILY [facility] Last Admin: 05/18/17 10:12 Dose: 40 mg Ferrous Sulfate (Feosol) 324 mg PO DAILY [facility] Last Admin: 05/18/17 10:11 Dose: 324 mg Furosemide (Lasix) 40 mg PO BID [facility] Last Admin: 05/18/17 10:12 Dose: 40 mg Glipizide (Glucotrol) 5 mg PO DAILY [facility] Last Admin: 05/18/17 10:08 Dose: 5 mg Guaifenesin (Robitussin) 100 mg PO Q4H PRN PRN Reason: Cough Last Admin: 05/15/17 22:09 Dose: 100 mg Hydralazine HCl (Apresoline) 25 mg PO TID [facility] Last Admin: 05/18/17 13:50 Dose: Not Given Meropenem 500 mg/ Sodium (Chloride) 50 mls @ 100 mls/hr IVPB Q8 ZAIRE PRN Reason: Protocol Stop: 05/18/17 22:01 Last Admin: 05/18/17 13:49 Dose: 100 mls/hr Insulin Detemir (Levemir) 12 unit SC HS [facility] Last Admin: 05/17/17 23:10 Dose: 12 unit Insulin Human Lispro (Humalog Low) 0 units SC ACHS ZAIRE PRN Reason: Protocol Last Admin: 05/18/17 12:22 Dose: 3 units Lidocaine (Lidoderm) 1 ea TD DAILY [facility] Last Admin: 05/18/17 10:14 Dose: 1 ea Lisinopril (Zestril) 20 mg PO DAILY [facility] Last Admin: 05/18/17 10:08 Dose: 20 mg Loratadine (Claritin) 10 mg PO DAILY [facility] Last Admin: 05/18/17 10:12 Dose: 10 mg Magnesium Oxide (Mag-Ox) 400 mg PO DAILY [facility] Last Admin: 05/18/17 10:08 Dose: 400 mg Montelukast Sodium (Singulair) 10 mg PO DAILY [facility] Last Admin: 05/18/17 10:17 Dose: 10 mg Nitroglycerin (Nitrostat Sl Tab) 0.4 mg SL Q5M PRN PRN Reason: chest pain Non-Formulary Medication (Biotin [Biotin]) 100 mg PO DAILY [facility] Last Admin: 05/18/17 12:51 Dose: Not Given Non-Formulary Medication (Linagliptin [Tradjenta]) 5 mg PO DAILY [facility] Last Admin: 05/18/17 12:51 Dose: Not Given Potassium Chloride (Klor-Con 10) 10 meq PO BRK [facility] Last Admin: 05/18/17 10:12 Dose: 10 meq Prasugrel (Effient) 10 mg PO DAILY [facility] Last Admin: 05/18/17 10:08 Dose: 10 mg Sertraline HCl (Zoloft) 50 mg PO DAILY [facility] [place] Last Admin: 05/18/17 10:12 Dose: 50 mg Warfarin Sodium (Coumadin) 7.5 mg PO 1800 [facility] Last Admin: 05/17/17 17:11 Dose: 7.5 mg Zolpidem Tartrate (Ambien) 5 mg PO HS PRN; Protocol PRN Reason: Insomnia Last Admin: 05/17/17 23:11 Dose: 5 mg - Labs Labs: 05/17/17 06:30 05/17/17 06:30 PT 16.6 SECONDS (9.4-12.5) H 05/18/17 06:30 INR 1.50 (0.93-1.08) H 05/18/17 06:30 APTT 53.0 Seconds (25.1-36.5) H 05/12/17 21:00 - Constitutional Appears: Non-toxic, No Acute Distress, Chronically Ill - Head Exam Head Exam: ATRAUMATIC, NORMOCEPHALIC - Eye Exam Eye Exam: EOMI, PERRL Pupil Exam: NORMAL ACCOMODATION, PERRL - ENT Exam ENT Exam: Mucous Membranes Moist, Normal External Ear Exam, TM's Normal Bilaterally - Neck Exam Neck Exam: Full ROM, Normal Inspection - Respiratory Exam Respiratory Exam: Clear to Ausculation Bilateral, NORMAL BREATHING PATTERN. absent: Rales, Rhonchi, Wheezes - Cardiovascular Exam Cardiovascular Exam: REGULAR RHYTHM, RRR, +S1, +S2 - GI/Abdominal Exam GI & Abdominal Exam: Soft, Normal Bowel Sounds. absent: Distended, Tenderness - Extremities Exam Extremities Exam: Full ROM, Normal Inspection - Neurological Exam Neurological Exam: Alert, Awake, CN II-XII Intact, Oriented x3 - Psychiatric Exam Psychiatric exam: Normal Affect, Normal Mood - Skin Skin Exam: Intact, Normal Color Assessment and Plan - Assessment and Plan (Free Text) Assessment: 72 yo female with original admission for suicide attempt by slitting wrists. She was found to have a UTI again with ESBL + E. Coli. The patient had an admission here less than a month ago for similar infection. The patient was treated with 7 days of Meropenem at that time. Continue with Meropenem and Nitrofuratoin for treatment. The patient's cultures on the last hospitalization had shown clearance of the infection prior to discharge. The patient may need PO Nitrofuratoin for prolonged treatment after the completion of IV Meropenem. Repeat urine culture done this AM. Monitor patient. Thank you for allowing me to participate in the care of the patient, we will follow with you.
--- NOTE | 2017-05-18 20:07 | CON ---
DATE: HISTORY OF PRESENT ILLNESS: The patient is a 72-year-old female with a history of depression, anxiety as well as recent psychiatric admission due to suicide attempt in April 2017, was admitted again on 05/12/2017 after she lacerated her wrist requiring 3 sutures in the ER in the suicide attempt. Dr. Hackett's note indicated that the patient made it clear that she wants to prior to coming to the hospital. The patient has been medically stabilized after having a heart attack and after that, she needs to be psychiatrically stabilized. The patient refused voluntary admission to [facility] and she is pending involuntary transfer to [facility] once she is medically cleared. I met with the patient at bedside and again, the patient is quite superficial with me and she keeps repeating that she is "just fine, just fine." The patient minimizes her symptoms prior to admission and though she is agreeable that her behavior was furious, she does not engage and her affect is superficial with forced elevation. She reports that she feels more hopeful now and does not have any plans to harm herself. This provider has a lot of reservations whether this is true. She is well oriented to month, year, location, and circumstances of her hospitalization and the fact that she had a heart attack. She is still upset about family issues and feels betrayed by her son who kicked her out and called the police on her. She is also worrying about her belongings because she was supposed to get out of her property at the end of April. She continuous to deny any hallucinations and delusions were not elicited. She is tolerating her current medications and she reports that she is sleeping well. Affect as I mentioned is superficially elevated and forced. Her insight and judgement are considered poor. Vital signs and laboratory data were reviewed by this provider. RELEVANT PSYCHIATRIC MEDICATIONS: Include Zoloft 50 mg daily. IMPRESSION: Major depressive disorder, severe; rule out adjustment disorder with depressed and anxious mood. The patient is status post 2 suicide attempts in the last month. PLAN: We will continue with Zoloft and the patient is to be transferred to [facility] for an involuntary transfer once she is medically cleared. The patient is refusing voluntary hospitalization and needs involuntary hospitalization for stabilization in this regard. Miguelangel Roberts MD [facility] # [id number]
[2017-05-18] MEDS: Insulin Detemir 100 units/ml Vial (Levemir) SC SCH (22:44)
--- NOTE | 2017-05-19 00:55 | PN ---
PULMONARY PROGRESS NOTE DATE: 05/18/2017 REFERRING PHYSICIAN: Tanisha Lebron MD SUBJECTIVE: The patient is lying in the bed, head at 45 degrees, sleepy, and arousable. Night was unremarkable. Mild cough. No sputum production. No nausea. No vomiting. No diarrhea, leg pain or leg swelling. OBJECTIVE: GENERAL: In no acute distress. VITAL SIGNS: Temperature is 98, heart rate is 69, respiratory rate is 20, blood pressure is 108/46, and pulse ox is 96% on room air. HEENT: Moist mucous membranes. Crowded airway. Mallampati score is 4. NECK: Supple. No JVD. HEART: S1 and S2. LUNGS: Has a fair airflow with few rhonchi. ABDOMEN: Soft and nontender. No organomegaly. EXTREMITIES: No edema. NEUROLOGIC: Alert, awake, and follow simple commands. LABORATORY DATA: Show INR of . Blood sugar is 220. Urine culture has E. coli. MEDICATIONS: She is on Ambien 5 mg at bedtime p.r.n., hydralazine 25 mg 3 times a day, aspirin 81 mg daily, Biotin 100 mg daily, Cardizem CD 180 mg daily, Claritin 10 mg daily, Colace 100 mg twice a day, Coreg 25 mg twice a day, Coumadin 7.5 mg will be given tonight, DuoNeb q.6 hours, Effient 10 mg daily, ferrous sulfate 325 mg daily, Glucotrol 5 mg daily, potassium 10 mEq daily, digoxin 0.25 mg q.48 hours, Lasix 40 mg twice a day, Levemir 12 units subcutaneously at bedtime, Lidoderm patch on the effected area, Tradjenta 5 mg daily, Lipitor 20 mg daily, magnesium oxide 400 mg daily, Nitrostat 0.4 mg every 5 minutes p.r.n., Pepcid 40 mg daily, Robitussin 100 mg q.4 hours p.r.n., Singulair 10 mg daily, Tylenol p.r.n., Zestril 20 mg daily, and mg daily. IMPRESSION: Status post suicidal attempt, myocardial infarction, coronary artery disease coronary stent, cardiomyopathy, obstructive lung disease, may have obstructive sleep apnea syndrome, atrial fibrillation, hypertension, diabetes, and depression. PLAN: From pulmonary point of view, she is doing okay. Continue bronchodilator, keep head at 45 degrees, anticoagulation, gastric prophylaxis, fall precaution, Psychiatry followup, and out of bed to chair. Thank you and we will follow with you. Rosina Gabriel MD
[2017-05-19] MEDS: Albuterol-Ipratrop 3 mg / 0.5 (3 ml) UD IH SCH ×4 (01:13→19:32)
[2017-05-19] MEDS: Insulin Lispro (humaLOG) LOW Coverage SC SCH ×4 (07:52→23:02)
[2017-05-19] MEDS: Potassium Chloride 10 mEq ER Tab PO SCH (09:28)
[2017-05-19] MEDS: diltiaZEM 180 mg/24 Hours CD Cap PO SCH (09:29)
[2017-05-19] MEDS: Lidocaine 5% Patch TD SCH (09:30)
[2017-05-19] MEDS: Non Formulary Medication (Linagliptin [Tradjenta] 5 MG) PO SCH (09:30)
[2017-05-19] MEDS: Magnesium Oxide 400 mg Tab UD PO SCH (09:30)
--- NOTE | 2017-05-19 11:47 | PN ---
DATE: 05/18/2017 SUBJECTIVE: The patient was seen and examined at the bedside, looking comfortable. No nausea, vomiting, or diarrhea. No hematuria. No hematochezia. No swelling of legs. No chest pain. No palpitations. No headache. No dizziness. PHYSICAL EXAMINATION VITAL SIGNS: Temperature 98.6, blood pressure 114/66, pulse 80 and respiratory rate 14. HEENT: Head is normocephalic and atraumatic. Eyes; PERRLA. Extraocular muscles are intact. Conjunctivae clear. Nose patent. Mucous membranes moist. NECK: Supple. No carotid bruits, JVD, or thyromegaly. CHEST: Bilaterally symmetrical. Heart; S1 and S2 positive. LUNGS: Clear to auscultation. ABDOMEN: Soft. Bowel sounds present. No organomegaly. EXTREMITIES: No edema. No cyanosis. NEUROLOGIC: The patient is awake and alert. Moving all four extremities. No focal deficits. LABORATORY DATA: We do not have recent labs today, but I reviewed old labs. INR 1.5. MEDICATIONS: Hydrazine, carvedilol, diltiazem, Coreg, Coumadin, Effient, Glucotrol, insulin, digoxin, potassium, Lasix, Lipitor, meropenem, and Singulair. ASSESSMENT AND PLAN: Ms. Mallorie Vega is a 72-year-old lady with multiple medical problems. Medical admissions last is for suicidal attempt in the setting of chronic depression. Known ST segment elevation and myocardial infarction with intermittent angina, severe coronary artery disease with complex anatomy status post recent repeat percutaneous coronary intervention of the right coronaries. History of coronary bypass surgery, severe left ventricular dysfunction and chronic systolic heart failure, chronic atrial fibrillation. According to dye colorist dyer, we will continue present treatment conservative cardiac management of ischemic heart disease as planned for now unless she has unremitting symptoms and the patient getting Coumadin, monitoring the INR, out of bed, physical therapy. We will followup. Tanisha Lebron MD
[2017-05-19] MEDS: BIOTIN PO SCH (11:50)
--- NOTE | 2017-05-19 13:33 | CP.PCM.PCO ---
Physician Communication Note - Physician Communication Note Physician Communication Note: spoke to Dr Cohn, patient is cleared for transfer to [facility] from ID standpoint
--- NOTE | 2017-05-19 14:14 | CP.PCM.PCO ---
Physician Communication Note - Physician Communication Note Physician Communication Note: [place] medically [place] [facility] [place] ALESSIA De La Rosa.
--- NOTE | 2017-05-19 14:26 | CP.PCM.PCO ---
Physician Communication Note - Physician Communication Note Physician Communication Note: pt can be discharged to [facility] [place] when accepted per PMD
--- NOTE | 2017-05-19 17:48 | CP.PCM.PN ---
<Kady Irwin - Last Filed: 05/19/17 21:54> Subjective - Date & Time of Evaluation Date of Evaluation: 05/19/17 Time of Evaluation: 11:00 - Subjective Subjective: 72 yr history of CAD stents x3 , neck fusion, triple bypass, COPD, AICD, kidney failure, reversal of ileostomy, IBS, diarrhea, heart attacks, asthma, CHF, AFIB, heart murmur, DM II, in [facility] after a suicide attempt following Thanksgiving and recently becoming homeless. She is resting comfortably in her bed. She denies any SOB, chest pain, diarrhea, constipation or urinary frequency. No distress noted. Objective - Vital Signs/Intake and Output Vital Signs (last 24 hours): Temp Pulse Resp BP Pulse Ox 98.6 F 70 20 103/41 L 97 05/19/17 06:00 05/19/17 12:00 05/19/17 12:00 05/19/17 12:00 05/19/17 06:00 Intake and Output: 05/19/17 05/19/17 06:59 18:59 Intake Total 1200 Output Total 1400 Balance -200 - Medications Medications: Current Medications Acetaminophen (Tylenol 325mg Tab) 650 mg PO Q6H PRN PRN Reason: Pain, moderate (4-7) Last Admin: 05/19/17 13:04 Dose: 650 mg Albuterol/Ipratropium (Duoneb 3 Mg/0.5 Mg (3 Ml) Ud) 3 ml IH [id number] [facility] Last Admin: 05/19/17 13:44 Dose: 3 ml Aspirin (Aspirin Chewable) 81 mg PO DAILY [facility] Last Admin: 05/19/17 09:28 Dose: 81 mg Atorvastatin Calcium (Lipitor) 20 mg PO DAILY [facility] Last Admin: 05/19/17 09:29 Dose: 20 mg Carvedilol (Coreg) 25 mg PO BID [facility] Last Admin: 05/19/17 09:29 Dose: 25 mg Digoxin (Lanoxin) 0.25 mg PO Q48H [facility] Last Admin: 05/18/17 13:52 Dose: 0.25 mg Diltiazem HCl (Cardizem Cd) 180 mg PO DAILY [facility] Last Admin: 05/19/17 09:29 Dose: 180 mg Docusate Sodium (Colace) 100 mg PO BID [facility] Last Admin: 05/19/17 09:28 Dose: 100 mg Famotidine (Pepcid) 40 mg PO DAILY [facility] Last Admin: 05/19/17 09:28 Dose: 40 mg Ferrous Sulfate (Feosol) 324 mg PO DAILY [facility] Last Admin: 05/19/17 09:30 Dose: 324 mg Furosemide (Lasix) 40 mg PO BID [facility] Last Admin: 05/19/17 09:28 Dose: 40 mg Glipizide (Glucotrol) 5 mg PO DAILY [facility] Last Admin: 05/19/17 09:28 Dose: 5 mg Guaifenesin (Robitussin) 100 mg PO Q4H PRN PRN Reason: Cough Last Admin: 05/15/17 22:09 Dose: 100 mg Hydralazine HCl (Apresoline) 25 mg PO TID [facility] Last Admin: 05/19/17 14:52 Dose: Not Given Insulin Detemir (Levemir) 12 unit SC HS [facility] Last Admin: 05/18/17 22:44 Dose: 12 unit Insulin Human Lispro (Humalog Low) 0 units SC ACHS [facility] PRN Reason: Protocol Last Admin: 05/19/17 11:51 Dose: Not Given Lidocaine (Lidoderm) 1 ea TD DAILY [facility] Last Admin: 05/19/17 09:30 Dose: 1 ea Lisinopril (Zestril) 20 mg PO DAILY [facility] Last Admin: 05/19/17 09:29 Dose: 20 mg Loratadine (Claritin) 10 mg PO DAILY [facility] Last Admin: 05/19/17 09:30 Dose: 10 mg Magnesium Oxide (Mag-Ox) 400 mg PO DAILY [facility] Last Admin: 05/19/17 09:30 Dose: 400 mg Montelukast Sodium (Singulair) 10 mg PO DAILY [facility] Last Admin: 05/19/17 09:27 Dose: 10 mg Nitrofurantoin Macrocrystals (Macrobid) 100 mg PO Q12 [facility] Stop: 05/26/17 22:01 Nitroglycerin (Nitrostat Sl Tab) 0.4 mg SL Q5M PRN PRN Reason: chest pain Non-Formulary Medication (Biotin [Biotin]) 100 mg PO DAILY [facility] Last Admin: 05/19/17 11:50 Dose: Not Given Non-Formulary Medication (Linagliptin [Tradjenta]) 5 mg PO DAILY [facility] Last Admin: 05/19/17 09:30 Dose: Not Given Potassium Chloride (Klor-Con 10) 10 meq PO BRK [facility] Last Admin: 05/19/17 09:28 Dose: 10 meq Prasugrel (Effient) 10 mg PO DAILY [facility] Last Admin: 05/19/17 09:28 Dose: 10 mg Sertraline HCl (Zoloft) 50 mg PO DAILY [facility] Last Admin: 05/19/17 09:27 Dose: 50 mg Warfarin Sodium (Coumadin) 7.5 mg PO 1800 [facility] Last Admin: 05/18/17 17:36 Dose: 7.5 mg Zolpidem Tartrate (Ambien) 5 mg PO HS PRN; Protocol PRN Reason: Insomnia Last Admin: 05/18/17 22:45 Dose: 5 mg - Labs Labs: 05/17/17 06:30 05/17/17 06:30 PT 16.6 SECONDS (9.4-12.5) H 05/18/17 06:30 INR 1.50 (0.93-1.08) H 05/18/17 06:30 APTT 53.0 Seconds (25.1-36.5) H 05/12/17 21:00 - Constitutional Appears: Older Than Stated Age, Chronically Ill - Head Exam Head Exam: NORMOCEPHALIC - Eye Exam Eye Exam: Normal appearance Pupil Exam: NORMAL ACCOMODATION - ENT Exam ENT Exam: Mucous Membranes Moist - Neck Exam Neck Exam: Full ROM, Normal Inspection - Respiratory Exam Respiratory Exam: Clear to Ausculation Bilateral - Cardiovascular Exam Cardiovascular Exam: Irregular Rhythm - GI/Abdominal Exam GI & Abdominal Exam: Soft, Normal Bowel Sounds - Extremities Exam Extremities Exam: Normal Capillary Refill, Normal Inspection - Back Exam Back Exam: NORMAL INSPECTION - Neurological Exam Neurological Exam: Alert, Awake, Oriented x3 - Psychiatric Exam Psychiatric exam: Depressed, Flat Affect - Skin Skin Exam: Intact, Warm Additional comments: discolored bilateral arms, fading old bruises. Assessment and Plan (1) Suicide attempt Status: Acute (2) Depression Status: Acute (3) COPD (chronic obstructive pulmonary disease) Status: Acute (4) Congestive heart failure Status: Acute (5) Atrial fibrillation Status: Acute (6) UTI (urinary tract infection) Status: Acute (7) Anemia Status: Acute - Assessment and Plan (Free Text) Plan: Pending being accepted into [facility] [place] for mental health treatment, Social work on- board. Consults: ID- Dr. Cohn (+) ESBL in urine tx w/ meropenem, nitrofuratoin Cardio - Dr. Patiño = medical tx for CAD recent PCI/PR, may require re-cath/ PCI but conservative tx Pulmonary - Dr. Gabriel = sleep apnea precautions continue bronchodilators HOB 45 degrees. Psych - Dr. Hackett = Needs in patient tx as this is her 2nd suicide attempt Reviewed: CXR (+) Congestive change w/o infiltrate. Possible congestive heart failure. AICD noted. CABG. ECG (+) Atrial sensed, ventricular paced rhythm CT head (-) WNL <Tanisha Lebron - Last Filed: 05/19/17 22:44> Objective - Vital Signs/Intake and Output Vital Signs (last 24 hours): Temp Pulse Resp BP Pulse Ox 98.4 F 66 20 111/80 97 05/19/17 17:49 05/19/17 18:05 05/19/17 17:49 05/19/17 18:06 05/19/17 06:00 - Medications Medications: Current Medications Acetaminophen (Tylenol 325mg Tab) 650 mg PO Q6H PRN PRN Reason: Pain, moderate (4-7) Last Admin: 05/19/17 13:04 Dose: 650 mg Albuterol/Ipratropium (Duoneb 3 Mg/0.5 Mg (3 Ml) Ud) 3 ml IH [id number] [facility] Last Admin: 05/19/17 19:32 Dose: 3 ml Aspirin (Aspirin Chewable) 81 mg PO DAILY [facility] Last Admin: 05/19/17 09:28 Dose: 81 mg Atorvastatin Calcium (Lipitor) 20 mg PO DAILY [facility] Last Admin: 05/19/17 09:29 Dose: 20 mg Carvedilol (Coreg) 25 mg PO BID [facility] Last Admin: 05/19/17 18:05 Dose: 25 mg Digoxin (Lanoxin) 0.25 mg PO Q48H [facility] Last Admin: 05/18/17 13:52 Dose: 0.25 mg Diltiazem HCl (Cardizem Cd) 180 mg PO DAILY [facility] Last Admin: 05/19/17 09:29 Dose: 180 mg Docusate Sodium (Colace) 100 mg PO BID [facility] Last Admin: 05/19/17 18:05 Dose: 100 mg Famotidine (Pepcid) 40 mg PO DAILY [facility] Last Admin: 05/19/17 09:28 Dose: 40 mg Ferrous Sulfate (Feosol) 324 mg PO DAILY [facility] Last Admin: 05/19/17 09:30 Dose: 324 mg Furosemide (Lasix) 40 mg PO BID [facility] Last Admin: 05/19/17 18:06 Dose: 40 mg Glipizide (Glucotrol) 5 mg PO DAILY [facility] Last Admin: 05/19/17 09:28 Dose: 5 mg Guaifenesin (Robitussin) 100 mg PO Q4H PRN PRN Reason: Cough Last Admin: 05/15/17 22:09 Dose: 100 mg Hydralazine HCl (Apresoline) 25 mg PO TID [facility] Last Admin: 05/19/17 18:06 Dose: 25 mg Insulin Detemir (Levemir) 12 unit SC HS [facility] Last Admin: 05/18/17 22:44 Dose: 12 unit Insulin Human Lispro (Humalog Low) 0 units SC [facility] PRN Reason: Protocol Last Admin: 05/19/17 18:06 Dose: 1 units Lidocaine (Lidoderm) 1 ea TD DAILY [facility] Last Admin: 05/19/17 09:30 Dose: 1 ea Lisinopril (Zestril) 20 mg PO DAILY [facility] Last Admin: 05/19/17 09:29 Dose: 20 mg Loratadine (Claritin) 10 mg PO DAILY [facility] Last Admin: 05/19/17 09:30 Dose: 10 mg Magnesium Oxide (Mag-Ox) 400 mg PO DAILY [facility] Last Admin: 05/19/17 09:30 Dose: 400 mg Montelukast Sodium (Singulair) 10 mg PO DAILY [facility] Last Admin: 05/19/17 09:27 Dose: 10 mg Nitrofurantoin Macrocrystals (Macrobid) 100 mg PO Q12 [facility] Stop: 05/26/17 22:01 Nitroglycerin (Nitrostat Sl Tab) 0.4 mg SL Q5M PRN PRN Reason: chest pain Non-Formulary Medication (Biotin [Biotin]) 100 mg PO DAILY [facility] Last Admin: 05/19/17 11:50 Dose: Not Given Non-Formulary Medication (Linagliptin [Tradjenta]) 5 mg PO DAILY [facility] Last Admin: 05/19/17 09:30 Dose: Not Given Potassium Chloride (Klor-Con 10) 10 meq PO BRK [facility] Last Admin: 05/19/17 09:28 Dose: 10 meq Prasugrel (Effient) 10 mg PO DAILY [facility] Last Admin: 05/19/17 09:28 Dose: 10 mg Sertraline HCl (Zoloft) 50 mg PO DAILY [facility] Last Admin: 05/19/17 09:27 Dose: 50 mg Warfarin Sodium (Coumadin) 7.5 mg PO 1800 [facility] Last Admin: 05/19/17 18:06 Dose: 7.5 mg Zolpidem Tartrate (Ambien) 5 mg PO HS PRN; Protocol PRN Reason: Insomnia Last Admin: 05/18/17 22:45 Dose: 5 mg - Labs Labs: 05/17/17 06:30 05/17/17 06:30 PT 16.6 SECONDS (9.4-12.5) H 05/18/17 06:30 INR 1.50 (0.93-1.08) H 05/18/17 06:30 APTT 53.0 Seconds (25.1-36.5) H 05/12/17 21:00 Assessment and Plan - Assessment and Plan (Free Text) Plan: pt is S/E at bed side looking comfortable , no n.v.d , no reyna or dizziness , getting [place] [facility] [place] . as per dr cohn pt need nitrofuration . checking pt , inr . oob pt , h/o depression , so trying to send her [place] [facility] [place]
--- NOTE | 2017-05-19 18:01 | CP.PCM.PN ---
Subjective - Date & Time of Evaluation Date of Evaluation: 05/19/17 Time of Evaluation: 16:00 - Subjective Subjective: Infectious Disease Follow Up: May 19, 2017 72 yo female with extensive past medical history that includes coronary artery disease, cardiomyopathy, pulmonary hypertension, atrial fibrillation, chronic obstructive lung disease, diabetes mellitus, and multiple attempts at suicide. The patient was initially admitted for a suicide attempt where she cut her wrist after having problems with her family on Thanksgiving. She is currently on one-to-one evaluation. During this hospitalization, the patient was found to have ESBL+ E. coli in the urine. The patient was on the medical floor in early April 2017 with a finding of ESBL+ E. Coli in the urine as well. She received Meropenem for treatment at this time. Currently on PO Nitrofuratoin for treatment. Completed 3 days of Meropenem for treatment. Monitor renal function. Repeat urine culture sent which showed no growth. Objective - Vital Signs/Intake and Output Vital Signs (last 24 hours): Temp Pulse Resp BP Pulse Ox 98.6 F 70 20 103/41 L 97 05/19/17 06:00 05/19/17 12:00 05/19/17 12:00 05/19/17 12:00 05/19/17 06:00 Intake and Output: 05/19/17 05/19/17 06:59 18:59 Intake Total 1200 Output Total 1400 Balance -200 - Medications Medications: Current Medications Acetaminophen (Tylenol 325mg Tab) 650 mg PO Q6H PRN PRN Reason: Pain, moderate (4-7) Last Admin: 05/19/17 13:04 Dose: 650 mg Albuterol/Ipratropium (Duoneb 3 Mg/0.5 Mg (3 Ml) Ud) 3 ml IH [id number] [facility] Last Admin: 05/19/17 13:44 Dose: 3 ml Aspirin (Aspirin Chewable) 81 mg PO DAILY [facility] Last Admin: 05/19/17 09:28 Dose: 81 mg Atorvastatin Calcium (Lipitor) 20 mg PO DAILY [facility] Last Admin: 05/19/17 09:29 Dose: 20 mg Carvedilol (Coreg) 25 mg PO BID [facility] Last Admin: 05/19/17 09:29 Dose: 25 mg Digoxin (Lanoxin) 0.25 mg PO Q48H [facility] Last Admin: 05/18/17 13:52 Dose: 0.25 mg Diltiazem HCl (Cardizem Cd) 180 mg PO DAILY [facility] Last Admin: 05/19/17 09:29 Dose: 180 mg Docusate Sodium (Colace) 100 mg PO BID [facility] Last Admin: 05/19/17 09:28 Dose: 100 mg Famotidine (Pepcid) 40 mg PO DAILY [facility] Last Admin: 05/19/17 09:28 Dose: 40 mg Ferrous Sulfate (Feosol) 324 mg PO DAILY [facility] Last Admin: 05/19/17 09:30 Dose: 324 mg Furosemide (Lasix) 40 mg PO BID [facility] Last Admin: 05/19/17 09:28 Dose: 40 mg Glipizide (Glucotrol) 5 mg PO DAILY [facility] Last Admin: 05/19/17 09:28 Dose: 5 mg Guaifenesin (Robitussin) 100 mg PO Q4H PRN PRN Reason: Cough Last Admin: 05/15/17 22:09 Dose: 100 mg Hydralazine HCl (Apresoline) 25 mg PO TID [facility] Last Admin: 05/19/17 14:52 Dose: Not Given Insulin Detemir (Levemir) 12 unit SC HS [facility] Last Admin: 05/18/17 22:44 Dose: 12 unit Insulin Human Lispro (Humalog Low) 0 units SC ACHS [facility] PRN Reason: Protocol Last Admin: 05/19/17 11:51 Dose: Not Given Lidocaine (Lidoderm) 1 ea TD DAILY [facility] Last Admin: 05/19/17 09:30 Dose: 1 ea Lisinopril (Zestril) 20 mg PO DAILY [facility] Last Admin: 05/19/17 09:29 Dose: 20 mg Loratadine (Claritin) 10 mg PO DAILY [facility] Last Admin: 05/19/17 09:30 Dose: 10 mg Magnesium Oxide (Mag-Ox) 400 mg PO DAILY [facility] Last Admin: 05/19/17 09:30 Dose: 400 mg Montelukast Sodium (Singulair) 10 mg PO DAILY [facility] Last Admin: 05/19/17 09:27 Dose: 10 mg Nitrofurantoin Macrocrystals (Macrobid) 100 mg PO Q12 [facility] Stop: 05/26/17 22:01 Nitroglycerin (Nitrostat Sl Tab) 0.4 mg SL Q5M PRN PRN Reason: chest pain Non-Formulary Medication (Biotin [Biotin]) 100 mg PO DAILY [facility] Last Admin: 05/19/17 11:50 Dose: Not Given Non-Formulary Medication (Linagliptin [Tradjenta]) 5 mg PO DAILY [facility] Last Admin: 05/19/17 09:30 Dose: Not Given Potassium Chloride (Klor-Con 10) 10 meq PO BRK [facility] Last Admin: 05/19/17 09:28 Dose: 10 meq Prasugrel (Effient) 10 mg PO DAILY [facility] Last Admin: 05/19/17 09:28 Dose: 10 mg Sertraline HCl (Zoloft) 50 mg PO DAILY [facility] Last Admin: 05/19/17 09:27 Dose: 50 mg Warfarin Sodium (Coumadin) 7.5 mg PO 1800 [facility] Last Admin: 05/18/17 17:36 Dose: 7.5 mg Zolpidem Tartrate (Ambien) 5 mg PO HS PRN; Protocol PRN Reason: Insomnia Last Admin: 05/18/17 22:45 Dose: 5 mg - Labs Labs: 05/17/17 06:30 05/17/17 06:30 PT 16.6 SECONDS (9.4-12.5) H 05/18/17 06:30 INR 1.50 (0.93-1.08) H 05/18/17 06:30 APTT 53.0 Seconds (25.1-36.5) H 05/12/17 21:00 - Constitutional Appears: Non-toxic, No Acute Distress, Chronically Ill - Head Exam Head Exam: ATRAUMATIC, NORMOCEPHALIC - Eye Exam Eye Exam: EOMI, PERRL Pupil Exam: NORMAL ACCOMODATION, PERRL - ENT Exam ENT Exam: Mucous Membranes Moist, Normal External Ear Exam, TM's Normal Bilaterally - Neck Exam Neck Exam: Full ROM, Normal Inspection - Respiratory Exam Respiratory Exam: Clear to Ausculation Bilateral, NORMAL BREATHING PATTERN. absent: Rales, Rhonchi, Wheezes - Cardiovascular Exam Cardiovascular Exam: REGULAR RHYTHM, RRR, +S1, +S2 - GI/Abdominal Exam GI & Abdominal Exam: Soft, Normal Bowel Sounds. absent: Distended, Tenderness - Extremities Exam Extremities Exam: Full ROM, Normal Inspection - Neurological Exam Neurological Exam: Alert, Awake, CN II-XII Intact, Oriented x3 - Psychiatric Exam Psychiatric exam: Normal Affect, Normal Mood Additional comments: suicide attempt leading to hospitalization. - Skin Skin Exam: Intact, Normal Color Assessment and Plan - Assessment and Plan (Free Text) Assessment: 72 yo female with original admission for suicide attempt by slitting wrists. She was found to have a UTI again with ESBL + E. Coli. The patient had an admission here less than a month ago for similar infection. The patient was treated with 7 days of Meropenem at that time. Continue with Meropenem and Nitrofuratoin for treatment. The patient's cultures on the last hospitalization had shown clearance of the infection prior to discharge. The patient may need PO Nitrofuratoin for prolonged treatment after the completion of IV Meropenem. Completed 3 days of meropenem. Repeat urine culture done and show no growth. Monitor patient. Cleared from ID standpoint for [place] [facility] [place] Continue with PO Nitrofuratoin. Thank you for allowing me to participate in the care of the patient, we will follow with you.
--- NOTE | 2017-05-19 19:07 | CP.PCM.PCO ---
Physician Communication Note - Physician Communication Note Physician Communication Note: pt will be f/u tomorrow
--- NOTE | 2017-05-19 21:10 | PN ---
DATE: 05/19/2017 PULMONARY PROGRESS NOTE REFERRING PHYSICIAN: Dr. Lebron. SUBJECTIVE: She is sitting up in the bed, having dinner, feels okay. Decreased cough and shortness of breath. No nausea. No vomiting. No diarrhea. No leg pain or leg swelling. Deny any idea of suicidal at present time. OBJECTIVE: GENERAL: In no acute distress. VITAL SIGNS: Temperature 98, heart rate 70, respiratory rate 20, blood pressure 103/41, pulse oximetry is 97% on room air. HEENT: Moist mucous membranes. Crowded airway. NECK: Supple. No JVD. LUNGS: Fair airflow with a few rhonchi. HEART: S1 and S2. ABDOMEN: Soft, nontender, no organomegaly. EXTREMITIES: There is no edema. NEUROLOGIC: Awake, alert, follows simple command. MEDICATIONS: She is on Ambien 5 mg at bedtime p.r.n., hydralazine 25 mg 3 times a day, aspirin 81 mg daily, Biotin 100 mg daily, Cardizem CD 180 mg daily, Claritin 10 mg daily, Colace 100 mg twice a day, Coreg 25 mg twice a day, Coumadin 7.5 mg daily, DuoNeb q. 6 hours, Effient 10 mg daily, ferrous sulfate 324 mg daily, glipizide 5 mg daily, insulin coverage, potassium 10 mEq daily, digoxin 0.25 mg q. 48 hours, Lasix 40 mg twice a day, Levemir subcutaneous at bedtime, Lidoderm patch at affected area, Tradjenta 5 mg daily, Lipitor 20 mg daily, nitrofurantoin 100 mg twice a day, magnesium oxide 400 mg daily, Nitrostat p.r.n. basis, Pepcid 40 mg daily, Robitussin 100 mg q. 4 hours, Singulair 10 mg daily, Tylenol p.r.n., Zestril 20 mg daily, and Zoloft 50 mg daily. LABORATORY DATA: Reviewed and noted. INR today 1.50 and glucose 220. IMPRESSION AND PLAN: 1. Status post suicidal attempt. 2. Myocardial infarction. 3. Coronary artery disease. 4. History of coronary stent. 5. Cardiomyopathy. 6. Obstructive lung disease. 7. Obstructive sleep apnea syndrome. 8. Atrial fibrillation. 9. Hypertension. 10. Diabetes. 11. Depression. PLAN: From a pulmonary point, she is doing okay. Continue bronchodilator. Keep head at 45 degrees, anticoagulation, Psychiatry followup, on antidepressants, she had several since followup. Medically, the patient is stable to be discharge at appropriate facility to continue care. Thank you and we will follow with you. Rosina Gabriel MD
[2017-05-19] MEDS: Insulin Detemir 100 units/ml Vial (Levemir) SC SCH (23:02)
[2017-05-20] MEDS: Albuterol-Ipratrop 3 mg / 0.5 (3 ml) UD IH SCH ×4 (01:35→19:11)
[2017-05-20] MEDS: Insulin Lispro (humaLOG) LOW Coverage SC SCH ×4 (08:12→23:23)
--- NOTE | 2017-05-20 08:38 | CP.PCM.PN ---
Subjective - Date & Time of Evaluation Date of Evaluation: 05/20/17 Time of Evaluation: 07:00 - Subjective Subjective: Stable on 2R. No chest pain or SOB. Involuntary admit to [place] unit [facility] is planned. She has nowhere to live and is planning to live in her car. V/S noted. V. Paced PE: Lungs: clear cor: S1S2 Abd: soft Ext.: no edema Neuro: alert ECGs noted: V. Paced Objective - Vital Signs/Intake and Output Vital Signs (last 24 hours): Temp Pulse Resp BP Pulse Ox 97.9 F 72 20 136/69 98 05/20/17 06:00 05/20/17 06:00 05/20/17 06:00 05/20/17 06:00 05/20/17 06:00 - Medications Medications: Current Medications Acetaminophen (Tylenol 325mg Tab) 650 mg PO Q6H PRN PRN Reason: Pain, moderate (4-7) Last Admin: 05/19/17 13:04 Dose: 650 mg Albuterol/Ipratropium (Duoneb 3 Mg/0.5 Mg (3 Ml) Ud) 3 ml IH [id number] [facility] Last Admin: 05/20/17 07:37 Dose: 3 ml Aspirin (Aspirin Chewable) 81 mg PO DAILY [facility] Last Admin: 05/19/17 09:28 Dose: 81 mg Atorvastatin Calcium (Lipitor) 20 mg PO DAILY [facility] Last Admin: 05/19/17 09:29 Dose: 20 mg Carvedilol (Coreg) 25 mg PO BID [facility] Last Admin: 05/19/17 18:05 Dose: 25 mg Digoxin (Lanoxin) 0.25 mg PO Q48H [facility] Last Admin: 05/18/17 13:52 Dose: 0.25 mg Diltiazem HCl (Cardizem Cd) 180 mg PO DAILY [facility] Last Admin: 05/19/17 09:29 Dose: 180 mg Docusate Sodium (Colace) 100 mg PO BID [facility] Last Admin: 05/19/17 18:05 Dose: 100 mg Famotidine (Pepcid) 40 mg PO DAILY [facility] Last Admin: 05/19/17 09:28 Dose: 40 mg Ferrous Sulfate (Feosol) 324 mg PO DAILY [facility] Last Admin: 05/19/17 09:30 Dose: 324 mg Furosemide (Lasix) 40 mg PO BID [facility] Last Admin: 05/19/17 18:06 Dose: 40 mg Glipizide (Glucotrol) 5 mg PO DAILY [facility] Last Admin: 05/19/17 09:28 Dose: 5 mg Guaifenesin (Robitussin) 100 mg PO Q4H PRN PRN Reason: Cough Last Admin: 05/15/17 22:09 Dose: 100 mg Hydralazine HCl (Apresoline) 25 mg PO TID [facility] Last Admin: 05/19/17 18:06 Dose: 25 mg Insulin Detemir (Levemir) 12 unit SC HS [facility] Last Admin: 05/19/17 23:02 Dose: 12 unit Insulin Human Lispro (Humalog Low) 0 units SC ACHS [facility] PRN Reason: Protocol Last Admin: 05/20/17 08:12 Dose: Not Given Lidocaine (Lidoderm) 1 ea TD DAILY [facility] Last Admin: 05/19/17 09:30 Dose: 1 ea Lisinopril (Zestril) 20 mg PO DAILY [facility] Last Admin: 05/19/17 09:29 Dose: 20 mg Loratadine (Claritin) 10 mg PO DAILY [facility] Last Admin: 05/19/17 09:30 Dose: 10 mg Magnesium Oxide (Mag-Ox) 400 mg PO DAILY [facility] Last Admin: 05/19/17 09:30 Dose: 400 mg Montelukast Sodium (Singulair) 10 mg PO DAILY [facility] Last Admin: 05/19/17 09:27 Dose: 10 mg Nitrofurantoin Macrocrystals (Macrobid) 100 mg PO Q12 [facility] Stop: 05/26/17 22:01 Last Admin: 05/19/17 23:02 Dose: 100 mg Nitroglycerin (Nitrostat Sl Tab) 0.4 mg SL Q5M PRN PRN Reason: chest pain Non-Formulary Medication (Biotin [Biotin]) 100 mg PO DAILY [facility] Last Admin: 05/19/17 11:50 Dose: Not Given Non-Formulary Medication (Linagliptin [Tradjenta]) 5 mg PO DAILY [facility] Last Admin: 05/19/17 09:30 Dose: Not Given Potassium Chloride (Klor-Con 10) 10 meq PO BRK [facility] Last Admin: 05/19/17 09:28 Dose: 10 meq Prasugrel (Effient) 10 mg PO DAILY [facility] Last Admin: 05/19/17 09:28 Dose: 10 mg Sertraline HCl (Zoloft) 50 mg PO DAILY [facility] Last Admin: 05/19/17 09:27 Dose: 50 mg Warfarin Sodium (Coumadin) 7.5 mg PO 1800 [facility] Last Admin: 05/19/17 18:06 Dose: 7.5 mg Zolpidem Tartrate (Ambien) 5 mg PO HS PRN; Protocol PRN Reason: Insomnia Last Admin: 05/19/17 23:01 Dose: 5 mg - Labs Labs: 05/17/17 06:30 05/17/17 06:30 PT 16.6 SECONDS (9.4-12.5) H 05/18/17 06:30 INR 1.50 (0.93-1.08) H 05/18/17 06:30 APTT 53.0 Seconds (25.1-36.5) H 05/12/17 21:00 Assessment and Plan - Assessment and Plan (Free Text) Assessment: Depression/Self Injury/Suicide attempt CP/+ trop/NSTEMI Severe CAD/S/P recent RCA PCI (difficult and complex lesions) CAD/Remote CABG/AK/Sev. LVD CHF AF ICD COPD Extensive bowel resection Former Smoker] Social Problems: Homeless/Alienated from family Plan: Continue cardiac meds. AB for UTI Check BMP and INR this AM prior to transfer to [facility] Psych Unit. Her cardiac status appears stable at this time but she is high risk for future events. Ok for transfer to Psych Unit. As per Drs. Lebron and Harvey, ID and Psych. 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
[2017-05-20] MEDS: Lidocaine 5% Patch TD SCH (09:05)
[2017-05-20] MEDS: Magnesium Oxide 400 mg Tab UD PO SCH (09:07)
[2017-05-20] MEDS: Potassium Chloride 10 mEq ER Tab PO SCH (09:07)
[2017-05-20] MEDS: diltiaZEM 180 mg/24 Hours CD Cap PO SCH (09:07)
[2017-05-20] MEDS: BIOTIN PO SCH (09:08)
[2017-05-20] MEDS: Non Formulary Medication (Linagliptin [Tradjenta] 5 MG) PO SCH (09:08)
[2017-05-20 09:15] LABS: POTASSIUM 4.6 mmol/L (3.6-5.0)
[2017-05-20 09:18] LABS: INR 2.87 (0.93-1.08)
--- NOTE | 2017-05-20 11:47 | CP.PCM.PN ---
Subjective - Date & Time of Evaluation Date of Evaluation: 05/20/17 Time of Evaluation: 10:45 - Subjective Subjective: Infectious Disease Follow Up: May 20, 2017 72 yo female with extensive past medical history that includes coronary artery disease, cardiomyopathy, pulmonary hypertension, atrial fibrillation, chronic obstructive lung disease, diabetes mellitus, and multiple attempts at suicide. The patient was initially admitted for a suicide attempt where she cut her wrist after having problems with her family on Thanksgiving. She is currently on one-to-one evaluation. During this hospitalization, the patient was found to have ESBL+ E. coli in the urine. The patient was on the medical floor in early April 2017 with a finding of ESBL+ E. Coli in the urine as well. She received Meropenem for treatment at this time. Currently on PO Nitrofuratoin for treatment. Completed 3 days of Meropenem for treatment. Monitor renal function. Repeat urine culture sent which showed no growth. Objective - Vital Signs/Intake and Output Vital Signs (last 24 hours): Temp Pulse Resp BP Pulse Ox 98.1 F 67 16 109/59 L 98 05/20/17 11:35 05/20/17 11:35 05/20/17 11:35 05/20/17 11:35 05/20/17 06:00 - Medications Medications: Current Medications Acetaminophen (Tylenol 325mg Tab) 650 mg PO Q6H PRN PRN Reason: Pain, moderate (4-7) Last Admin: 05/19/17 13:04 Dose: 650 mg Albuterol/Ipratropium (Duoneb 3 Mg/0.5 Mg (3 Ml) Ud) 3 ml IH [id number] [facility] Last Admin: 05/20/17 07:37 Dose: 3 ml Aspirin (Aspirin Chewable) 81 mg PO DAILY [facility] Last Admin: 05/20/17 09:05 Dose: 81 mg Atorvastatin Calcium (Lipitor) 20 mg PO DAILY [facility] Last Admin: 05/20/17 09:07 Dose: 20 mg Carvedilol (Coreg) 25 mg PO BID [facility] Last Admin: 05/20/17 09:08 Dose: 25 mg Digoxin (Lanoxin) 0.25 mg PO Q48H [facility] Last Admin: 05/18/17 13:52 Dose: 0.25 mg Diltiazem HCl (Cardizem Cd) 180 mg PO DAILY [facility] Last Admin: 05/20/17 09:07 Dose: 180 mg Docusate Sodium (Colace) 100 mg PO BID [facility] Last Admin: 05/20/17 09:06 Dose: 100 mg Famotidine (Pepcid) 40 mg PO DAILY [facility] Last Admin: 05/20/17 09:06 Dose: 40 mg Ferrous Sulfate (Feosol) 324 mg PO DAILY [facility] Last Admin: 05/20/17 09:06 Dose: 324 mg Furosemide (Lasix) 40 mg PO BID [facility] Last Admin: 05/20/17 09:06 Dose: 40 mg Glipizide (Glucotrol) 5 mg PO DAILY [facility] Last Admin: 05/20/17 09:06 Dose: 5 mg Guaifenesin (Robitussin) 100 mg PO Q4H PRN PRN Reason: Cough Last Admin: 05/15/17 22:09 Dose: 100 mg Hydralazine HCl (Apresoline) 25 mg PO TID [facility] Last Admin: 05/20/17 09:07 Dose: 25 mg Insulin Detemir (Levemir) 12 unit SC HS [facility] Last Admin: 05/19/17 23:02 Dose: 12 unit Insulin Human Lispro (Humalog Low) 0 units SC ACHS [facility] PRN Reason: Protocol Last Admin: 05/20/17 08:12 Dose: Not Given Lidocaine (Lidoderm) 1 ea TD DAILY [facility] Last Admin: 05/20/17 09:05 Dose: 1 ea Lisinopril (Zestril) 20 mg PO DAILY [facility] Last Admin: 05/20/17 09:07 Dose: 20 mg Loratadine (Claritin) 10 mg PO DAILY [facility] Last Admin: 05/20/17 09:07 Dose: 10 mg Magnesium Oxide (Mag-Ox) 400 mg PO DAILY [facility] Last Admin: 05/20/17 09:07 Dose: 400 mg Montelukast Sodium (Singulair) 10 mg PO DAILY [facility] Last Admin: 05/20/17 09:06 Dose: 10 mg Nitrofurantoin Macrocrystals (Macrobid) 100 mg PO Q12 [facility] Stop: 05/26/17 22:01 Last Admin: 05/20/17 09:06 Dose: 100 mg Nitroglycerin (Nitrostat Sl Tab) 0.4 mg SL Q5M PRN PRN Reason: chest pain Non-Formulary Medication (Biotin [Biotin]) 100 mg PO DAILY [facility] Last Admin: 05/20/17 09:08 Dose: Not Given Non-Formulary Medication (Linagliptin [Tradjenta]) 5 mg PO DAILY [facility] Last Admin: 05/20/17 09:08 Dose: Not Given Potassium Chloride (Klor-Con 10) 10 meq PO BRK [facility] Last Admin: 05/20/17 09:07 Dose: 10 meq Prasugrel (Effient) 10 mg PO DAILY [facility] Last Admin: 05/20/17 09:05 Dose: 10 mg Sertraline HCl (Zoloft) 50 mg PO DAILY [facility] Last Admin: 05/20/17 09:07 Dose: 50 mg Warfarin Sodium (Coumadin) 7.5 mg PO 1800 [facility] Last Admin: 05/19/17 18:06 Dose: 7.5 mg Zolpidem Tartrate (Ambien) 5 mg PO HS PRN; Protocol PRN Reason: Insomnia Last Admin: 05/19/17 23:01 Dose: 5 mg - Labs Labs: 05/17/17 06:30 05/20/17 08:55 PT 32.2 SECONDS (9.4-12.5) H 05/20/17 08:55 INR 2.87 (0.93-1.08) H 05/20/17 08:55 APTT 53.0 Seconds (25.1-36.5) H 05/12/17 21:00 - Constitutional Appears: Non-toxic, No Acute Distress, Chronically Ill - Head Exam Head Exam: ATRAUMATIC, NORMOCEPHALIC - Eye Exam Eye Exam: EOMI, PERRL Pupil Exam: NORMAL ACCOMODATION, PERRL - ENT Exam ENT Exam: Mucous Membranes Moist, Normal External Ear Exam, TM's Normal Bilaterally - Neck Exam Neck Exam: Full ROM, Normal Inspection - Respiratory Exam Respiratory Exam: Clear to Ausculation Bilateral, NORMAL BREATHING PATTERN. absent: Rales, Rhonchi, Wheezes Additional comments: poor inspiratory effort. - Cardiovascular Exam Cardiovascular Exam: REGULAR RHYTHM, RRR, +S1, +S2 - GI/Abdominal Exam GI & Abdominal Exam: Soft, Normal Bowel Sounds. absent: Distended, Tenderness - Extremities Exam Extremities Exam: Full ROM, Normal Inspection - Neurological Exam Neurological Exam: Alert, Awake, CN II-XII Intact, Oriented x3 - Psychiatric Exam Psychiatric exam: Normal Affect, Normal Mood Additional comments: suicide attempt leading to hospitalization - Skin Skin Exam: Intact, Normal Color Assessment and Plan - Assessment and Plan (Free Text) Assessment: 72 yo female with original admission for suicide attempt by slitting wrists. She was found to have a UTI again with ESBL + E. Coli. The patient had an admission here less than a month ago for similar infection. The patient was treated with 7 days of Meropenem at that time. Continue with Meropenem and Nitrofuratoin for treatment. The patient's cultures on the last hospitalization had shown clearance of the infection prior to discharge. The patient may need PO Nitrofuratoin for prolonged treatment after the completion of IV Meropenem. Completed 3 days of meropenem. Repeat urine culture done and show no growth. Monitor patient. Cleared from ID standpoint for transfer to involuntary psychiatric floor in [facility]. Continue with PO Nitrofuratoin... looking for 7-10 days. Thank you for allowing me to participate in the care of the patient, we will follow with you.
[2017-05-20] MEDS: Digoxin 250 mcg (0.25 mg) Tab PO SCH (14:03)
[2017-05-20 14:04] VITALS: PULSE 65
[2017-05-20] MEDS: Insulin Detemir 100 units/ml Vial (Levemir) SC SCH (23:22)
[2017-05-21 00:15] VITALS: RESP 20
--- NOTE | 2017-05-21 01:48 | PN ---
PULMONARY PROGRESS NOTE DATE: 05/20/2017 REFERRING PHYSICIAN: Tanisha Lebron MD SUBJECTIVE: The patient is lying in the bed, sleepy, arousable. Night was unremarkable. No headache. No rhinitis. No nausea or vomiting. No diarrhea. No leg pain or leg swelling. PHYSICAL EXAMINATION GENERAL: No acute distress. VITAL SIGNS: Temperature is 98, heart rate 69, respiratory rate is 18, blood pressure 115/69 and pulse oximetry 98% on 2 liters nasal cannula. HEENT: Moist mucous membrane,Crowded airway. Mallampati score is IV. NECK: Supple. No JVD. LUNGS: Has a fair airflow with few rhonchi. HEART: S1 and S2. ABDOMEN: Soft and nontender. No organomegaly. EXTREMITIES: There is no edema. NEUROLOGIC: Alert, awake and follow simple commands. MEDICATIONS: She is on Ambien 5 mg at bedtime p.r.n., hydralazine 25 mg 3 times a day, aspirin 81 mg daily, Biotin 100 mg daily, Cardizem CD 180 mg daily, Claritin 10 mg daily, Colace 100 mg twice a day, Coreg 25 mg twice a day, Coumadin 5 mg daily, DuoNeb q.6 hours, Effient 10 mg daily, ferrous sulfate 325 mg daily, glipizide 5 mg daily, insulin coverage, potassium 10 mEq daily, digoxin 0.25 mg daily, Lasix 40 mg twice a day, Levemir 12 units subcutaneously at bedtime, Lidoderm patch effected area, Tradjenta 5 mg daily, Lipitor 20 mg daily, Macrobid 100 mg twice a day, magnesium oxide 400 mg daily, Pepcid 40 mg daily, Robitussin p.r.n. basis, Singulair 10 mg daily, Tylenol p.r.n., Zestril 20 mg daily, and Zoloft 50 mg daily. LABORATORY DATA: Shows INR 2.87. Sodium 134, potassium 4.6, chloride 97, bicarbonate 25, BUN 28, creatinine 1.1, glucose 162 and calcium 10. ProBNP 5,640. Repeat urine culture done, has no growth. IMPRESSION AND PLAN: Status post suicidal attempt, myocardial infarction, coronary artery disease coronary stent, cardiomyopathy, obstructive lung disease, obstructive sleep apnea syndrome, atrial fibrillation, hypertension, diabetes and depression. Presently express no suicidal ideation, regrets what attempt she made. Denying any headache. No rhinitis. Pulmonary point of view doing okay. Continue anticoagulation. Keep INR on 2.5. Gastric prophylaxis. Fall precaution. Being followed by Psychiatry and Cardiology. Thank you and we will follow with you. Rosina Gabriel MD
--- NOTE | 2017-05-21 02:22 | PN ---
DATE: FOLLOWUP NOTE SUBJECTIVE: In short, the patient is a 72-year-old female with history of adjustment disorder and history of impulsive behavior. The patient had 1 admission to the psychiatric inpatient unit, which took place here in [place] on 04/18/2017. The patient had self-inflicted laceration of forearms. This time, the patient was admitted on the medical side. The patient was status post suicidal attempt. The patient cut her wrist again, required three sutures in the emergency room. The patient also had chest pain, COPD, and the patient also had urinary tract infection as well as NSTEMI. The patient also has severe coronary artery disease. The patient presented to be impulsive, superficially cooperative. The patient became homeless. The patient has no support from her family. This speech writer feels that the patient is high risk because all of the patient's belongings are discarded, and right now the patient wants to leave in her car. This speech writer attempted to speak to the patient on multiple occasions. This speech writer offered the patient admission in order to have social work evaluation, in order to have safe discharge plan. The patient declined that offer. It was also a second suicidal attempt for the past month, and this speech writer had feeling that the patient is in danger to self. Vital signs are stable. MEDICATIONS: Reviewed. LABORATORIES: Reviewed. MENTAL STATUS EXAMINATION: The patient is superficially cooperative. The patient reported that she feels fine, minimizing all of her symptoms. Mood described as "I feel great. I want to go and I want to leave in my car." Speech was loud, at times overproductive, but not pressured. Thought process seems to be concrete. Thought content, the patient denied visual, auditory, or tactile hallucinations. Denied paranoid ideation. The patient denied thoughts of harming herself or others, but this is second suicidal attempt for the past month. Insight and judgment limited. Impulses are unpredictable. IMPRESSION: Most likely, the patient has adjustment disorder, rule out neurocognitive problems, rule out early stage of dementia, rule out major depressive disorder. PLAN: This speech writer offered the patient admission to the psychiatric inpatient unit. The patient declined that offer. This speech writer will initiate [facility] screening process. The patient has no support from the family. This speech writer feels that the patient might benefit from the psychiatric inpatient unit and hope [facility] will consider to accept the patient under involuntary status. Should you have any questions, give me a call back. Thank you very much for letting me participate in care of your patient. Beti Hackett MD
[2017-05-21] MEDS: Albuterol-Ipratrop 3 mg / 0.5 (3 ml) UD IH SCH ×4 (03:15→20:35)
[2017-05-21] MEDS: Insulin Lispro (humaLOG) LOW Coverage SC SCH ×4 (07:49→22:35)
[2017-05-21] MEDS: Potassium Chloride 10 mEq ER Tab PO SCH (07:52)
--- NOTE | 2017-05-21 08:18 | PN ---
DATE: 05/20/2017 SUBJECTIVE: The patient is a 72-year-old female. The patient is seen and examined at the bedside, looking comfortable. No nausea, vomiting, or diarrhea. No hematuria or hematochezia. No swelling of the legs. No chest pain. No palpitations. No fever. No chills. PHYSICAL EXAMINATION: VITAL SIGNS: Temperature 98.1, pulse is 67, blood pressure is 109/59, and respiratory rate is 18. HEENT: Head; normocephalic and atraumatic. Eyes; PERRLA. Extraocular muscles are intact. Conjunctivae clear. Nose patent. Mucous membranes moist. NECK: Supple. No carotid bruit, JVD, or thyromegaly. CHEST: Bilaterally symmetrical. HEART: S1 and S2 positive. LUNGS: Clear to auscultation. ABDOMEN: Soft. Bowel sounds present. No organomegaly. EXTREMITIES: No edema. No cyanosis. NEUROLOGIC: The patient is awake and alert. Moving all four extremities. No focal deficits. MEDICATIONS: Ambien, hydralazine, aspirin, Biotin, Cardizem, loratadine, NS, Coumadin, ipratropium, Effient, glipizide, potassium, and Levemir. LABORATORY DATA: We do not have labs today. Glucose is 232. INR 2.87. PT 32.2. ASSESSMENT AND PLAN: Ms. Mallorie Francis is a 72-year-old lady with multiple medical problems; atrial fibrillation, on Coumadin; INR is therapeutic; depression; history of suicidal attempts, Dr. Beti Hackett is on the case; chest pain plus troponin; non-ST elevation myocardial infarction; severe coronary artery disease; right coronary artery percutaneous coronary intervention, difficult and complex lesions; remote coronary artery bypass graft; congestive heart failure; atrial fibrillation; chronic obstructive pulmonary disease; extensive bowel resection due to bowel cancer; former smoker; social problem; homeless; and problem from the family. Trying to transfer the patient to [facility]. Medically, the patient is cleared by ID and by Cardiology. According to ID, we have to give 10 days p.o. antibiotics, was sent to [facility], awaiting for the result. They want to know BMP, we ordered that. Cardiac status appear to be stable as per Cardiology. Gastrointestinal and deep venous thrombosis prophylaxis. We will repeat labs. We will follow up. Tanisha Lebron MD [facility] # [id number] [facility]
[2017-05-21] MEDS: Lidocaine 5% Patch TD SCH (09:50)
[2017-05-21] MEDS: Magnesium Oxide 400 mg Tab UD PO SCH (09:51)
[2017-05-21] MEDS: BIOTIN PO SCH (09:52)
[2017-05-21] MEDS: diltiaZEM 180 mg/24 Hours CD Cap PO SCH (09:52)
[2017-05-21] MEDS: Non Formulary Medication (Linagliptin [Tradjenta] 5 MG) PO SCH (09:53)
--- NOTE | 2017-05-21 10:37 | CP.PCM.CON ---
History of Present Illness - History of Present Illness History of Present Illness: This 72 year old patient was seen at her bedside. She was referred for consultation for suicide assessment after client cut her wrist for the second time in 1 month due to despondency over impending homelessness. She refuses voluntary inpatient admission. and has been medically cleared for discharge. The screener was called due to concerns over patient's safety as she is homeless , has no support system, and the factors that lead to her suicide attempt still exist. Chart was reviewed, nurse was interviewed, apparently the screener came last night but did not give a definitive answer so we are awaiting disposition. Patient continues to deny that she is suicidal or homicidal, denies the presence of delusions, hallucinations or paranoia. Her focus and concentration and memory are "great" according to the client but she is very concrete in conversation and rigid in her thought processes. Her mood is "perfect". When asked her plan if discharged, she indicates that she just needs to find her car , "and figure things out". Awaiting disposition from screeners. Past Patient History - Infectious Disease Hx of Infectious Diseases: None - Past Social History Smoking Status: Former Smoker - CARDIAC Hx Cardiac Disorders: Yes Hx Angina: Yes Hx Cardia Arrhythmia: Yes (afib) Hx Hypercholesterolemia: Yes Hx Internal Defibrillator: Yes (left chest) Hx Pacemaker: Yes Other/Comment: coronary artery bypass graft - PULMONARY Hx Chronic Obstructive Pulmonary Disease (COPD): Yes - NEUROLOGICAL Hx Neurological Disorder: Yes Hx Transient Ischemic Attacks (TIA): Yes - HEENT Hx HEENT Problems: Yes (eyeglasses) Other/Comment: visually impaired - RENAL Hx Renal Failure: Yes - ENDOCRINE/METABOLIC Hx Diabetes Mellitus Type 2: Yes - HEMATOLOGICAL/ONCOLOGICAL Hx Blood Disorders: No - INTEGUMENTARY Hx Dermatological Problems: Yes Other/Comment: multiple skin discolorations arms, fading old bruises b/l knees, multiple surgical scars to abd, and lcw from pacemaker insertion - MUSCULOSKELETAL/RHEUMATOLOGICAL Hx Falls: Yes - GASTROINTESTINAL Hx Gastrointestinal Disorders: Yes (ileostomy reversal 2010) - GENITOURINARY/GYNECOLOGICAL Hx Genitourinary Disorders: Yes - PSYCHIATRIC Hx Depression: Yes Hx Substance Use: No - SURGICAL HISTORY Hx Cardiac Catheterization: Yes Hx Coronary Stent: Yes - ANESTHESIA Hx Anesthesia: Yes Hx Anesthesia Reactions: No Hx Malignant Hyperthermia: No Meds Allergies/Adverse Reactions: Allergies Allergy/AdvReac Type Severity Reaction Status Date / Time clopidogrel bisulfate Allergy RASH Verified 04/21/17 12:52 [From Plavix] - Medications Medications: Current Medications Acetaminophen (Tylenol 325mg Tab) 650 mg PO Q6H PRN PRN Reason: Pain, moderate (4-7) Last Admin: 05/20/17 12:38 Dose: 650 mg Albuterol/Ipratropium (Duoneb 3 Mg/0.5 Mg (3 Ml) Ud) 3 ml IH [id number] [facility] Last Admin: 05/21/17 08:11 Dose: 3 ml Aspirin (Aspirin Chewable) 81 mg PO DAILY [facility] Last Admin: 05/21/17 09:51 Dose: 81 mg Atorvastatin Calcium (Lipitor) 20 mg PO DAILY [facility] Last Admin: 05/21/17 09:51 Dose: 20 mg Carvedilol (Coreg) 25 mg PO BID [facility] Last Admin: 05/21/17 09:51 Dose: 25 mg Digoxin (Lanoxin) 0.25 mg PO Q48H [facility] Last Admin: 05/20/17 14:03 Dose: Not Given Diltiazem HCl (Cardizem Cd) 180 mg PO DAILY [facility] Last Admin: 05/21/17 09:52 Dose: 180 mg Docusate Sodium (Colace) 100 mg PO BID [facility] Last Admin: 05/21/17 09:50 Dose: 100 mg Famotidine (Pepcid) 40 mg PO DAILY [facility] Last Admin: 05/21/17 09:51 Dose: 40 mg Ferrous Sulfate (Feosol) 324 mg PO DAILY [facility] Last Admin: 05/21/17 09:51 Dose: 324 mg Furosemide (Lasix) 40 mg PO BID [facility] Last Admin: 05/21/17 09:51 Dose: 40 mg Glipizide (Glucotrol) 5 mg PO DAILY [facility] Last Admin: 05/21/17 09:51 Dose: 5 mg Guaifenesin (Robitussin) 100 mg PO Q4H PRN PRN Reason: Cough Last Admin: 05/15/17 22:09 Dose: 100 mg Hydralazine HCl (Apresoline) 25 mg PO TID [facility] Last Admin: 05/21/17 09:52 Dose: 25 mg Insulin Detemir (Levemir) 12 unit SC HS [facility] Last Admin: 05/20/17 23:22 Dose: 12 unit Insulin Human Lispro (Humalog Low) 0 units SC ACHS [facility] PRN Reason: Protocol Last Admin: 05/21/17 07:49 Dose: Not Given Lidocaine (Lidoderm) 1 ea TD DAILY [facility] Last Admin: 05/21/17 09:50 Dose: 1 ea Lisinopril (Zestril) 20 mg PO DAILY [facility] Last Admin: 05/21/17 09:51 Dose: 20 mg Loratadine (Claritin) 10 mg PO DAILY [facility] Last Admin: 05/21/17 09:51 Dose: 10 mg Magnesium Oxide (Mag-Ox) 400 mg PO DAILY [facility] Last Admin: 05/21/17 09:51 Dose: 400 mg Montelukast Sodium (Singulair) 10 mg PO DAILY [facility] Last Admin: 05/21/17 09:51 Dose: 10 mg Nitrofurantoin Macrocrystals (Macrobid) 100 mg PO Q12 [facility] Stop: 05/26/17 22:01 Last Admin: 05/21/17 09:51 Dose: 100 mg Nitroglycerin (Nitrostat Sl Tab) 0.4 mg SL Q5M PRN PRN Reason: chest pain Non-Formulary Medication (Biotin [Biotin]) 100 mg PO DAILY [facility] Last Admin: 05/21/17 09:52 Dose: Not Given Non-Formulary Medication (Linagliptin [Tradjenta]) 5 mg PO DAILY [facility] Last Admin: 05/21/17 09:53 Dose: Not Given Potassium Chloride (Klor-Con 10) 10 meq PO BRK [facility] Last Admin: 05/21/17 07:52 Dose: 10 meq Prasugrel (Effient) 10 mg PO DAILY [facility] Last Admin: 05/21/17 09:50 Dose: 10 mg Sertraline HCl (Zoloft) 50 mg PO DAILY [facility] Last Admin: 05/21/17 09:50 Dose: 50 mg Warfarin Sodium (Coumadin) 5 mg PO 1800 [facility] Last Admin: 05/20/17 17:08 Dose: 5 mg Zolpidem Tartrate (Ambien) 5 mg PO HS PRN; Protocol PRN Reason: Insomnia Last Admin: 05/20/17 23:22 Dose: 5 mg Results - Vital Signs Recent Vital Signs: Last Vital Signs Temp 97.0 F L 05/21/17 06:00 Pulse 86 05/21/17 09:52 Resp 20 05/21/17 06:00 BP 113/52 L 05/21/17 09:52 Pulse Ox 96 05/21/17 06:00 - Labs Result Diagrams: 05/17/17 06:30 05/20/17 08:55 Labs: Laboratory Results - last 24 hr 05/20/17 05/20/17 05/20/17 10:51 11:30 16:20 POC Glucose (mg/dL) 232 H 142 H NT-Pro-B Natriuret Pep 5640 H Digoxin 05/20/17 05/21/17 21:34 06:05 POC Glucose (mg/dL) 298 H NT-Pro-B Natriuret Pep Digoxin 1.0
--- NOTE | 2017-05-21 11:29 | PN ---
DATE: 05/21/2017 SUBJECTIVE: The patient is seen sitting in bed on telemetry. She states she has had no recurrent chest pains. She denies any dyspnea. She is resistant to go to an inpatient psychiatric setting. She prefers to go home. She feels that her belongings have been displaced and she needs to attend to personal matters. MEDICATIONS: Her current medications include Ambien, hydralazine 25 mg t.i.d., aspirin, diltiazem 180 mg daily, Claritin 10 mg daily, Colace, carvedilol 25 mg b.i.d., Coumadin, DuoNeb inhaler, Effient 10 mg daily, ferrous sulfate, Glucotrol 5 mg daily, insulin coverage, digoxin 0.25 mg every other day, potassium, Lasix 40 mg b.i.d., Levemir insulin, Lidoderm patch, Tradjenta, Lipitor 20 mg daily, Macrobid, magnesium oxide, Pepcid 40 mg daily, Singulair 10 mg daily and Zestril 20 mg daily. PHYSICAL EXAMINATION: GENERAL: She is a middle-aged woman, who appears in no distress. VITAL SIGNS: Her blood pressure is 126/56 with pulse of 74 with ventricular pacing, respirations are 14. She is afebrile. HEENT: No JVD. CHEST: Clear to auscultation and percussion. HEART: PMI displaced laterally. Soft tones noted. Systolic murmurs heard at the left sternal border. ABDOMEN: Soft, nontender. Normoactive bowel sounds. EXTREMITIES: No edema. DIAGNOSTIC DATA: No blood work pending from this morning. IMPRESSION: 1. Known coronary artery disease, status post bypass surgery, multivessel percutaneous coronary intervention with recent [id number]-elevation myocardial infarction. Currently being managed conservatively. 2. Depression with recent self injury and suicide attempt. Psychiatric opinion regarding need for inpatient involuntary commitment noted. 3. Compensated congestive heart failure. 4. Chronic atrial fibrillation. 5. Status post implantable cardioverter-defibrillator implant. RECOMMENDATIONS: Her current cardiac medications will be continued at this time. From a cardiac standpoint, she is stable for transfer to a psychiatric facility. She was encouraged to follow through on her physician's recommendations regarding this as she has made 2 suicide gestures in the recent past. We will be happy to follow along as needed. Dwight Patiño MD [facility] # [id number]
--- NOTE | 2017-05-21 14:40 | CP.PCM.PN ---
<AlidaKadyoli Geronimo - Last Filed: 05/21/17 21:47> Subjective - Date & Time of Evaluation Date of Evaluation: 05/21/17 Time of Evaluation: 11:00 - Subjective Subjective: 72 yr history of CAD stents x3 , neck fusion, triple bypass, COPD, AICD, kidney failure, reversal of ileostomy, IBS, diarrhea, heart attacks, asthma, CHF, AFIB, heart murmur, DM II, in [facility] after a suicide attempt following Thanksgiving and recently becoming homeless. She is resting in her bed stating that her groin area is very "itchy" and "red." She reports that the irritation is inside her vagina. Social workers are working on a transfer to [facility] inpatient as she has poor support in the community and is currently homeless, living in her car. She denies any SOB, chest pain, diarrhea, constipation or urinary frequency. No distress noted. Objective - Vital Signs/Intake and Output Vital Signs (last 24 hours): Temp Pulse Resp BP Pulse Ox 98 F 68 20 123/55 L 96 05/21/17 12:00 05/21/17 13:05 05/21/17 06:00 05/21/17 13:05 05/21/17 06:00 Intake and Output: 05/21/17 05/21/17 06:59 18:59 Intake Total 480 Balance 480 - Medications Medications: Current Medications Acetaminophen (Tylenol 325mg Tab) 650 mg PO Q6H PRN PRN Reason: Pain, moderate (4-7) Last Admin: 05/21/17 13:06 Dose: 650 mg Albuterol/Ipratropium (Duoneb 3 Mg/0.5 Mg (3 Ml) Ud) 3 ml IH [id number] [facility] Last Admin: 05/21/17 14:31 Dose: 3 ml Aspirin (Aspirin Chewable) 81 mg PO DAILY [facility] Last Admin: 05/21/17 09:51 Dose: 81 mg Atorvastatin Calcium (Lipitor) 20 mg PO DAILY [facility] Last Admin: 05/21/17 09:51 Dose: 20 mg Carvedilol (Coreg) 25 mg PO BID [facility] Last Admin: 05/21/17 09:51 Dose: 25 mg Digoxin (Lanoxin) 0.25 mg PO Q48H [facility] Last Admin: 05/20/17 14:03 Dose: Not Given Diltiazem HCl (Cardizem Cd) 180 mg PO DAILY [facility] Last Admin: 05/21/17 09:52 Dose: 180 mg Docusate Sodium (Colace) 100 mg PO BID [facility] Last Admin: 05/21/17 09:50 Dose: 100 mg Famotidine (Pepcid) 40 mg PO DAILY [facility] Last Admin: 05/21/17 09:51 Dose: 40 mg Ferrous Sulfate (Feosol) 324 mg PO DAILY [facility] Last Admin: 05/21/17 09:51 Dose: 324 mg Furosemide (Lasix) 40 mg PO BID [facility] Last Admin: 05/21/17 09:51 Dose: 40 mg Glipizide (Glucotrol) 5 mg PO DAILY [facility] Last Admin: 05/21/17 09:51 Dose: 5 mg Guaifenesin (Robitussin) 100 mg PO Q4H PRN PRN Reason: Cough Last Admin: 05/15/17 22:09 Dose: 100 mg Hydralazine HCl (Apresoline) 25 mg PO TID [facility] Last Admin: 05/21/17 13:05 Dose: 25 mg Insulin Detemir (Levemir) 12 unit SC HS [facility] Last Admin: 05/20/17 23:22 Dose: 12 unit Insulin Human Lispro (Humalog Low) 0 units SC ACHS [facility] PRN Reason: Protocol Last Admin: 05/21/17 11:49 Dose: 2 units Lidocaine (Lidoderm) 1 ea TD DAILY [facility] Last Admin: 05/21/17 09:50 Dose: 1 ea Lisinopril (Zestril) 20 mg PO DAILY [facility] Last Admin: 05/21/17 09:51 Dose: 20 mg Loratadine (Claritin) 10 mg PO DAILY [facility] Last Admin: 05/21/17 09:51 Dose: 10 mg Magnesium Oxide (Mag-Ox) 400 mg PO DAILY [facility] Last Admin: 05/21/17 09:51 Dose: 400 mg Montelukast Sodium (Singulair) 10 mg PO DAILY [facility] Last Admin: 05/21/17 09:51 Dose: 10 mg Nitrofurantoin Macrocrystals (Macrobid) 100 mg PO Q12 [facility] Stop: 05/26/17 22:01 Last Admin: 05/21/17 09:51 Dose: 100 mg Nitroglycerin (Nitrostat Sl Tab) 0.4 mg SL Q5M PRN PRN Reason: chest pain Non-Formulary Medication (Biotin [Biotin]) 100 mg PO DAILY [facility] Last Admin: 05/21/17 09:52 Dose: Not Given Non-Formulary Medication (Linagliptin [Tradjenta]) 5 mg PO DAILY [facility] Last Admin: 05/21/17 09:53 Dose: Not Given Nystatin (Nystop Topical Powder) 0 gm TOP BID [facility] Potassium Chloride (Klor-Con 10) 10 meq PO BRK [facility] Last Admin: 05/21/17 07:52 Dose: 10 meq Prasugrel (Effient) 10 mg PO DAILY [facility] Last Admin: 05/21/17 09:50 Dose: 10 mg Sertraline HCl (Zoloft) 50 mg PO DAILY [facility] Last Admin: 05/21/17 09:50 Dose: 50 mg Warfarin Sodium (Coumadin) 5 mg PO 1800 [facility] Last Admin: 05/20/17 17:08 Dose: 5 mg Zolpidem Tartrate (Ambien) 5 mg PO HS PRN; Protocol PRN Reason: Insomnia Last Admin: 05/20/17 23:22 Dose: 5 mg - Labs Labs: 05/17/17 06:30 05/20/17 08:55 PT 32.2 SECONDS (9.4-12.5) H 05/20/17 08:55 INR 2.87 (0.93-1.08) H 05/20/17 08:55 APTT 53.0 Seconds (25.1-36.5) H 05/12/17 21:00 - Constitutional Appears: Older Than Stated Age, Chronically Ill - Head Exam Head Exam: ATRAUMATIC, NORMOCEPHALIC - Eye Exam Eye Exam: Normal appearance - ENT Exam ENT Exam: Mucous Membranes Moist, Normal Exam - Neck Exam Neck Exam: Full ROM, Normal Inspection - Respiratory Exam Respiratory Exam: Clear to Ausculation Bilateral, NORMAL BREATHING PATTERN - Cardiovascular Exam Cardiovascular Exam: REGULAR RHYTHM, +S1, +S2. absent: Murmur - GI/Abdominal Exam GI & Abdominal Exam: Soft, Normal Bowel Sounds. absent: Tenderness - Exam External exam: Erythema Additional comments: yeast / fungal infection of skin in vagina and groin. - Extremities Exam Extremities Exam: Full ROM, Normal Capillary Refill, Normal Inspection. absent : Joint Swelling, Pedal Edema - Back Exam Back Exam: NORMAL INSPECTION - Neurological Exam Neurological Exam: Alert, Awake, CN II-XII Intact, Normal Gait, Oriented x3 - Psychiatric Exam Psychiatric exam: Depressed, Normal Affect - Skin Skin Exam: Rash Assessment and Plan (1) Yeast infection involving the vagina and surrounding area Status: Acute (2) Tinea of groin Status: Acute (3) Suicide attempt Status: Acute (4) Depression Status: Acute (5) COPD (chronic obstructive pulmonary disease) Status: Acute (6) Congestive heart failure Status: Acute (7) Atrial fibrillation Status: Acute (8) UTI (urinary tract infection) Status: Acute (9) Anemia Status: Acute - Assessment and Plan (Free Text) Plan: Secondary yeast infection noted and tinea of groin present. Prescibed nystatin powder and diflucan PO x 1 dose. Consults: ID- Dr. Cohn (+) ESBL in urine tx w/ meropenem, nitrofuratoin, Cleared from ID standpoint Cardio - Dr. Patiño = medical tx for CAD recent PCI/NC, may require re-cath/ PCI but conservative tx. Her cardiac status appears stable at this time but she is high risk for future events. Ok for transfer to Psych Unit. Psych - Dr. Hackett = Needs in patient tx as this is her 2nd suicide attempt. Pending being accepted into [facility] for mental health treatment, Social work on-board. Pulmonary - Dr. Gabriel = sleep apnea precautions continue bronchodilators HOB 45 degrees. Reviewed: CXR (+) Congestive change w/o infiltrate. Possible congestive heart failure. AICD noted. CABG. ECG (+) Atrial sensed, ventricular paced rhythm CT head (-) WNL <Tanisha Lebron - Last Filed: 05/21/17 22:53> Objective - Vital Signs/Intake and Output Vital Signs (last 24 hours): Temp Pulse Resp BP Pulse Ox 98.3 F 72 20 117/54 L 96 05/21/17 17:25 05/21/17 18:00 05/21/17 17:25 05/21/17 17:25 05/21/17 06:00 Intake and Output: 05/21/17 05/22/17 18:59 06:59 Intake Total 720 Output Total 4 Balance 716 - Medications Medications: Current Medications Acetaminophen (Tylenol 325mg Tab) 650 mg PO Q6H PRN PRN Reason: Pain, moderate (4-7) Last Admin: 05/21/17 13:06 Dose: 650 mg Albuterol/Ipratropium (Duoneb 3 Mg/0.5 Mg (3 Ml) Ud) 3 ml IH [id number] [facility] Last Admin: 05/21/17 20:35 Dose: 3 ml Aspirin (Aspirin Chewable) 81 mg PO DAILY [facility] Last Admin: 05/21/17 09:51 Dose: 81 mg Atorvastatin Calcium (Lipitor) 20 mg PO DAILY [facility] Last Admin: 05/21/17 09:51 Dose: 20 mg Carvedilol (Coreg) 25 mg PO BID [facility] Last Admin: 05/21/17 17:24 Dose: 25 mg Digoxin (Lanoxin) 0.25 mg PO Q48H [facility] Last Admin: 05/20/17 14:03 Dose: Not Given Diltiazem HCl (Cardizem Cd) 180 mg PO DAILY [facility] Last Admin: 05/21/17 09:52 Dose: 180 mg Docusate Sodium (Colace) 100 mg PO BID [facility] Last Admin: 05/21/17 17:25 Dose: 100 mg Famotidine (Pepcid) 40 mg PO DAILY [facility] Last Admin: 05/21/17 09:51 Dose: 40 mg Ferrous Sulfate (Feosol) 324 mg PO DAILY [facility] Last Admin: 05/21/17 09:51 Dose: 324 mg Furosemide (Lasix) 40 mg PO BID [facility] Last Admin: 05/21/17 17:24 Dose: 40 mg Glipizide (Glucotrol) 5 mg PO DAILY [facility] Last Admin: 05/21/17 09:51 Dose: 5 mg Guaifenesin (Robitussin) 100 mg PO Q4H PRN PRN Reason: Cough Last Admin: 05/15/17 22:09 Dose: 100 mg Hydralazine HCl (Apresoline) 25 mg PO TID [facility] Last Admin: 05/21/17 17:24 Dose: 25 mg Insulin Detemir (Levemir) 12 unit SC HS [facility] Last Admin: 05/21/17 22:45 Dose: 12 unit Insulin Human Lispro (Humalog Low) 0 units SC ACHS [facility] PRN Reason: Protocol Last Admin: 05/21/17 22:35 Dose: Not Given Lidocaine (Lidoderm) 1 ea TD DAILY [facility] Last Admin: 05/21/17 09:50 Dose: 1 ea Lisinopril (Zestril) 20 mg PO DAILY [facility] Last Admin: 05/21/17 09:51 Dose: 20 mg Loratadine (Claritin) 10 mg PO DAILY [facility] Last Admin: 05/21/17 09:51 Dose: 10 mg Magnesium Oxide (Mag-Ox) 400 mg PO DAILY [facility] Last Admin: 05/21/17 09:51 Dose: 400 mg Montelukast Sodium (Singulair) 10 mg PO DAILY [facility] Last Admin: 05/21/17 09:51 Dose: 10 mg Nitrofurantoin Macrocrystals (Macrobid) 100 mg PO Q12 [facility] Stop: 05/26/17 22:01 Last Admin: 05/21/17 22:45 Dose: 100 mg Nitroglycerin (Nitrostat Sl Tab) 0.4 mg SL Q5M PRN PRN Reason: chest pain Non-Formulary Medication (Biotin [Biotin]) 100 mg PO DAILY [facility] Last Admin: 05/21/17 09:52 Dose: Not Given Non-Formulary Medication (Linagliptin [Tradjenta]) 5 mg PO DAILY [facility] Last Admin: 05/21/17 09:53 Dose: Not Given Nystatin (Nystop Topical Powder) 0 gm TOP BID [facility] Last Admin: 05/21/17 17:28 Dose: 1 applic Potassium Chloride (Klor-Con 10) 10 meq PO BRK [facility] Last Admin: 05/21/17 07:52 Dose: 10 meq Prasugrel (Effient) 10 mg PO DAILY [facility] Last Admin: 05/21/17 09:50 Dose: 10 mg Sertraline HCl (Zoloft) 50 mg PO DAILY [facility] Last Admin: 05/21/17 09:50 Dose: 50 mg Warfarin Sodium (Coumadin) 5 mg PO 1800 [facility] Last Admin: 05/21/17 17:25 Dose: 5 mg Zolpidem Tartrate (Ambien) 5 mg PO HS PRN; Protocol PRN Reason: Insomnia Last Admin: 05/21/17 22:45 Dose: 5 mg - Labs Labs: 05/17/17 06:30 05/20/17 08:55 PT 32.2 SECONDS (9.4-12.5) H 05/20/17 08:55 INR 2.87 (0.93-1.08) H 05/20/17 08:55 APTT 53.0 Seconds (25.1-36.5) H 05/12/17 21:00 Assessment and Plan - Assessment and Plan (Free Text) Plan: pt is seen and examined at bed side , looking comfortable , agreed all above , getting anb. pt ot , comedine , will cont, same treatment , waiting , response from [facility]
--- NOTE | 2017-05-21 16:36 | CP.PCM.PN ---
Subjective - Date & Time of Evaluation Date of Evaluation: 05/21/17 Time of Evaluation: 16:00 - Subjective Subjective: Infectious Disease Follow Up: May 21, 2017 72 yo female with extensive past medical history that includes coronary artery disease, cardiomyopathy, pulmonary hypertension, atrial fibrillation, chronic obstructive lung disease, diabetes mellitus, and multiple attempts at suicide. The patient was initially admitted for a suicide attempt where she cut her wrist after having problems with her family on Thanksgiving. She is currently on one-to-one evaluation. During this hospitalization, the patient was found to have ESBL+ E. coli in the urine. The patient was on the medical floor in early April 2017 with a finding of ESBL+ E. Coli in the urine as well. She received Meropenem for treatment at this time. Currently on PO Nitrofuratoin for treatment. Completed 3 days of Meropenem for treatment. Monitor renal function. Repeat urine culture sent which showed no growth. Suicide attempt - patient unwilling to go to inpatient psychiatry at this time. Objective - Vital Signs/Intake and Output Vital Signs (last 24 hours): Temp Pulse Resp BP Pulse Ox 98 F 68 20 123/55 L 96 05/21/17 12:00 05/21/17 13:05 05/21/17 06:00 05/21/17 13:05 05/21/17 06:00 Intake and Output: 05/21/17 05/21/17 06:59 18:59 Intake Total 480 720 Output Total 4 Balance 480 716 - Medications Medications: Current Medications Acetaminophen (Tylenol 325mg Tab) 650 mg PO Q6H PRN PRN Reason: Pain, moderate (4-7) Last Admin: 05/21/17 13:06 Dose: 650 mg Albuterol/Ipratropium (Duoneb 3 Mg/0.5 Mg (3 Ml) Ud) 3 ml [id number] Last Admin: 05/21/17 14:31 Dose: 3 ml Aspirin (Aspirin Chewable) 81 mg PO DAILY [facility] Last Admin: 05/21/17 09:51 Dose: 81 mg Atorvastatin Calcium (Lipitor) 20 mg PO DAILY [facility] Last Admin: 05/21/17 09:51 Dose: 20 mg Carvedilol (Coreg) 25 mg PO BID [facility] Last Admin: 05/21/17 09:51 Dose: 25 mg Digoxin (Lanoxin) 0.25 mg PO Q48H [facility] Last Admin: 12/05/17 14:03 Dose: Not Given Diltiazem HCl (Cardizem Cd) 180 mg PO DAILY [facility] Last Admin: 05/21/17 09:52 Dose: 180 mg Docusate Sodium (Colace) 100 mg PO BID [facility] Last Admin: 05/21/17 09:50 Dose: 100 mg Famotidine (Pepcid) 40 mg PO DAILY [facility] Last Admin: 05/21/17 09:51 Dose: 40 mg Ferrous Sulfate (Feosol) 324 mg PO DAILY [facility] Last Admin: 05/21/17 09:51 Dose: 324 mg Furosemide (Lasix) 40 mg PO BID [facility] Last Admin: 05/21/17 09:51 Dose: 40 mg Glipizide (Glucotrol) 5 mg PO DAILY [facility] Last Admin: 05/21/17 09:51 Dose: 5 mg Guaifenesin (Robitussin) 100 mg PO Q4H PRN PRN Reason: Cough Last Admin: 05/15/17 22:09 Dose: 100 mg Hydralazine HCl (Apresoline) 25 mg PO TID [facility] Last Admin: 05/21/17 13:05 Dose: 25 mg Insulin Detemir (Levemir) 12 unit SC HS [facility] Last Admin: 05/20/17 23:22 Dose: 12 unit Insulin Human Lispro (Humalog Low) 0 units SC ACHS [facility] PRN Reason: Protocol Last Admin: 05/21/17 11:49 Dose: 2 units Lidocaine (Lidoderm) 1 ea TD DAILY [facility] Last Admin: 05/21/17 09:50 Dose: 1 ea Lisinopril (Zestril) 20 mg PO DAILY [facility] Last Admin: 05/21/17 09:51 Dose: 20 mg Loratadine (Claritin) 10 mg PO DAILY [facility] Last Admin: 05/21/17 09:51 Dose: 10 mg Magnesium Oxide (Mag-Ox) 400 mg PO DAILY [facility] Last Admin: 05/21/17 09:51 Dose: 400 mg Montelukast Sodium (Singulair) 10 mg PO DAILY [facility] Last Admin: 05/21/17 09:51 Dose: 10 mg Nitrofurantoin Macrocrystals (Macrobid) 100 mg PO Q12 [facility] Stop: 05/26/17 22:01 Last Admin: 05/21/17 09:51 Dose: 100 mg Nitroglycerin (Nitrostat Sl Tab) 0.4 mg SL Q5M PRN PRN Reason: chest pain Non-Formulary Medication (Biotin [Biotin]) 100 mg PO DAILY [facility] Last Admin: 05/21/17 09:52 Dose: Not Given Non-Formulary Medication (Linagliptin [Tradjenta]) 5 mg PO DAILY [facility] Last Admin: 05/21/17 09:53 Dose: Not Given Nystatin (Nystop Topical Powder) 0 gm TOP BID [facility] Potassium Chloride (Klor-Con 10) 10 meq PO BRK [facility] Last Admin: 05/21/17 07:52 Dose: 10 meq Prasugrel (Effient) 10 mg PO DAILY [facility] Last Admin: 05/21/17 09:50 Dose: 10 mg Sertraline HCl (Zoloft) 50 mg PO DAILY [facility] Last Admin: 05/21/17 09:50 Dose: 50 mg Warfarin Sodium (Coumadin) 5 mg PO 1800 [facility] Last Admin: 05/20/17 17:08 Dose: 5 mg Zolpidem Tartrate (Ambien) 5 mg PO HS PRN; Protocol PRN Reason: Insomnia Last Admin: 05/20/17 23:22 Dose: 5 mg - Labs Labs: 05/17/17 06:30 05/20/17 08:55 PT 32.2 SECONDS (9.4-12.5) H 05/20/17 08:55 INR 2.87 (0.93-1.08) H 05/20/17 08:55 APTT 53.0 Seconds (25.1-36.5) H 05/12/17 21:00 - Constitutional Appears: Non-toxic, No Acute Distress, Chronically Ill - Head Exam Head Exam: ATRAUMATIC, NORMOCEPHALIC - Eye Exam Eye Exam: EOMI, PERRL Pupil Exam: NORMAL ACCOMODATION, PERRL - ENT Exam ENT Exam: Mucous Membranes Moist, Normal External Ear Exam, TM's Normal Bilaterally - Neck Exam Neck Exam: Full ROM, Normal Inspection - Respiratory Exam Respiratory Exam: Clear to Ausculation Bilateral, NORMAL BREATHING PATTERN. absent: Rales, Rhonchi, Wheezes - Cardiovascular Exam Cardiovascular Exam: REGULAR RHYTHM, RRR, +S1, +S2 - GI/Abdominal Exam GI & Abdominal Exam: Soft, Normal Bowel Sounds. absent: Distended, Tenderness - Extremities Exam Extremities Exam: Full ROM, Normal Inspection - Neurological Exam Neurological Exam: Alert, Awake, CN II-XII Intact, Oriented x3 - Psychiatric Exam Psychiatric exam: Normal Affect, Normal Mood Additional comments: suicide attempt leading to hospitalization - Skin Skin Exam: Intact, Normal Color Assessment and Plan - Assessment and Plan (Free Text) Assessment: 72 yo female with original admission for suicide attempt by slitting wrists. She was found to have a UTI again with ESBL + E. Coli. The patient had an admission here less than a month ago for similar infection. The patient was treated with 7 days of Meropenem at that time. Continue with Meropenem and Nitrofuratoin for treatment. The patient's cultures on the last hospitalization had shown clearance of the infection prior to discharge. The patient may need PO Nitrofuratoin for prolonged treatment after the completion of IV Meropenem. Completed 3 days of meropenem. Repeat urine culture done and show no growth. Monitor patient. Cleared from ID standpoint for transfer to involuntary psychiatric floor in [facility]. Continue with PO Nitrofuratoin... looking for 7-10 days of treatment. Thank you for allowing me to participate in the care of the patient, we will follow with you.
[2017-05-21] MEDS: Nystatin 100,000 Units/gm Topical Pow(15 gm) TOP SCH (17:28)
--- NOTE | 2017-05-21 20:26 | PN ---
DATE: SUBJECTIVE: The patient is a 72-year-old female who was admitted on the medical side for evaluation of chest pain, was found to have NSTEMI, and the patient also had COPD. The patient also has urinary tract infection. The patient is status post suicidal attempt. The patient cut her wrist, required three sutures. The patient refused to stay into the psychiatric inpatient unit, that is why screening process was initiated. The patient was evaluated by [facility], at present moment disposition is not clear.. The patient still does not want to stay into the hospital and into the psychiatric inpatient unit. The patient is still homeless. The patient was evicted from the house. The patient has the same level of stress, which led her to the second suicidal attempt with less than 1 month apart. OBJECTIVE: VITAL SIGNS: Reviewed. MENTAL STATUS EXAMINATION: The patient appears to be sleepy, complained that she had headache. Mood described "I feel the same." Affect was constricted, superficially cheerful. Thought process seems to be circumstantial. Thought content, the patient denied visual, auditory, or tactile hallucinations. Denied paranoid ideation. The patient denied thoughts of harming herself or others. Denied intent or plan. The patient seems to have no insight into her medical as well as mental illness. Impulses seems to be unpredictable. MEDICATIONS: Reviewed. LABORATORY DATA: Reviewed. Microbiology reviewed. Urinalysis showed E. coli. IMPRESSION: Most likely, the patient has impulse control disorder as well as major depressive disorder as well as this advertising copywriter cannot exclude early stage of dementia, rule out personality disorder. PLAN: The patient was seen by [facility], disposition is not clear. The patient might benefit from staying into the hospital and the patient might benefit from evaluation of high school social studies tutor. The patient is homeless and has multiple medical issues as well as second time for wanted to end up her life. This advertising copywriter recommended admission, but the patient declined that offer. The patient needs to be screened and disposition needs to be made. Thank you very much for letting me to participate in the care of your patient. Dr. Roberts and Dr. Becerra covers for this advertising copywriter. Should you have any questions, give me a call back. Beti Hackett MD [facility] # [phone]
[2017-05-21] MEDS: Insulin Detemir 100 units/ml Vial (Levemir) SC SCH (22:45)
[2017-05-22] MEDS: Albuterol-Ipratrop 3 mg / 0.5 (3 ml) UD IH SCH ×3 (02:15→13:46)
--- NOTE | 2017-05-22 05:22 | PN ---
DATE: 05/21/2017 PULMONARY PROGRESS NOTE REFERRING PHYSICIAN: Tanisha Lebron MD. SUBJECTIVE: She is lying in the bed, sleepy, arousable. Night was unremarkable. No headache. No rhinitis. No cough. No nausea. No vomiting. No diarrhea. No leg pain or leg swelling. Left wrist injury healing well. OBJECTIVE GENERAL: In no acute distress. VITAL SIGNS: Temperature is 98, heart rate is 72, respiratory rate is 20, blood pressure 117/54, and pulse ox is 96% on room air. HEENT: Moist mucous membranes. No ulcer or thrush noted. NECK: Supple. No JVD. LUNGS: Fair airflow with few rhonchi. HEART: S1 and S2. ABDOMEN: Soft and nontender. No organomegaly. EXTREMITIES: No edema. NEUROLOGICAL: Sleepy, arousable. Follow simple commands. MEDICATIONS: She is on Ambien 5 mg at bedtime p.r.n., hydralazine 20 mg 3 times a day,aspirin 81 mg daily, Cardizem CD 180 mg daily, Claritin 10 mg daily, Colace 100 mg twice a day, Coreg 25 mg twice a day, Coumadin 5 mg given tonight, albuterol/Atrovent nebulizer q. 6 hours, Effient 10 mg daily, ferrous sulfate 324 mg daily, glipizide 5 mg daily, insulin coverage, potassium 10 mEq daily, digoxin 0.25 mg q. 48 hours, Lasix 40 mg twice a day, Levemir 12 units subcu at bedtime, Lidoderm patch to the affected area, Tradjenta 5 mg daily, Lipitor 20 mg daily, Macrobid 100 mg twice a day, magnesium oxide 400 mg daily, Nitrostat p.r.n. basis, Pepcid 40 mg daily, Robitussin 100 mg q. 4 hours, Singulair 10 mg daily, Tylenol p.r.n., Zestril 20 mg daily, and Zoloft 50 mg daily. LABORATORY DATA: Reviewed and noted. INR 2.87 yesterday. Glucose of 120. IMPRESSION AND PLAN: Status post suicidal attempt, myocardial infarction, coronary artery disease, history of coronary stent, cardiomyopathy, obstructive lung disease, obstructive sleep apnea syndrome, atrial fibrillation, hypertension, diabetes, and depression. PLAN: From a pulmonary point of view, she is doing okay. Continue bronchodilator, keep head at 45 degrees, being followed by Psychiatry. We will follow their . Follow up INR in the morning. Thank you and we will follow with you. Rosina Gabriel MD
[2017-05-22 05:44] VITALS: TEMP 97.8; O2SAT 96
[2017-05-22 07:25] LABS: INR 3.68 (0.93-1.08)
[2017-05-22] MEDS: Insulin Lispro (humaLOG) LOW Coverage SC SCH ×2 (07:41→11:55)
--- NOTE | 2017-05-22 08:25 | CP.PCM.PN ---
Subjective - Date & Time of Evaluation Date of Evaluation: 05/22/17 Time of Evaluation: 07:00 - Subjective Subjective: Stable on 2R. No chest pain or SOB. Involuntary [place] [facility] [place] but no bed is available yet. She has spoken with her sister and is planning to live with her upon d/c from hospital. I encouraged her to accept in- patient psychiatric treatment prior to d/c to her sister's home. Her spirits seem better. V/S noted. V. Paced PE: Lungs: clear cor: S1S2 Abd: soft Ext.: no edema Neuro: alert ECGs noted: V. Paced INR 3.68 today Objective - Vital Signs/Intake and Output Vital Signs (last 24 hours): Temp Pulse Resp BP Pulse Ox 97.8 F 71 20 135/64 96 05/22/17 05:43 05/22/17 05:43 05/22/17 05:43 05/22/17 05:43 05/22/17 05:43 Intake and Output: 05/22/17 05/22/17 06:59 18:59 Intake Total 360 Balance 360 - Medications Medications: Current Medications Acetaminophen (Tylenol 325mg Tab) 650 mg PO Q6H PRN PRN Reason: Pain, moderate (4-7) Last Admin: 05/22/17 06:06 Dose: 650 mg Albuterol/Ipratropium (Duoneb 3 Mg/0.5 Mg (3 Ml) Ud) 3 ml IH [id number] [facility] Last Admin: 05/22/17 07:53 Dose: 3 ml Aspirin (Aspirin Chewable) 81 mg PO DAILY [facility] Last Admin: 05/21/17 09:51 Dose: 81 mg Atorvastatin Calcium (Lipitor) 20 mg PO DAILY [facility] Last Admin: 05/21/17 09:51 Dose: 20 mg Carvedilol (Coreg) 25 mg PO BID [facility] Last Admin: 05/21/17 17:24 Dose: 25 mg Digoxin (Lanoxin) 0.25 mg PO Q48H [facility] Last Admin: 05/20/17 14:03 Dose: Not Given Diltiazem HCl (Cardizem Cd) 180 mg PO DAILY [facility] Last Admin: 05/21/17 09:52 Dose: 180 mg Docusate Sodium (Colace) 100 mg PO BID [facility] Last Admin: 05/21/17 17:25 Dose: 100 mg Famotidine (Pepcid) 40 mg PO DAILY [facility] Last Admin: 05/21/17 09:51 Dose: 40 mg Ferrous Sulfate (Feosol) 324 mg PO DAILY [facility] Last Admin: 05/21/17 09:51 Dose: 324 mg Furosemide (Lasix) 40 mg PO BID [facility] Last Admin: 05/21/17 17:24 Dose: 40 mg Glipizide (Glucotrol) 5 mg PO DAILY [facility] Last Admin: 05/21/17 09:51 Dose: 5 mg Guaifenesin (Robitussin) 100 mg PO Q4H PRN PRN Reason: Cough Last Admin: 05/15/17 22:09 Dose: 100 mg Hydralazine HCl (Apresoline) 25 mg PO TID [facility] Last Admin: 05/21/17 17:24 Dose: 25 mg Insulin Detemir (Levemir) 12 unit SC HS [facility] Last Admin: 05/21/17 22:45 Dose: 12 unit Insulin Human Lispro (Humalog Low) 0 units SC [facility] PRN Reason: Protocol Last Admin: 05/22/17 07:41 Dose: Not Given Lidocaine (Lidoderm) 1 ea TD DAILY [facility] Last Admin: 05/21/17 09:50 Dose: 1 ea Lisinopril (Zestril) 20 mg PO DAILY [facility] Last Admin: 05/21/17 09:51 Dose: 20 mg Loratadine (Claritin) 10 mg PO DAILY [facility] Last Admin: 05/21/17 09:51 Dose: 10 mg Magnesium Oxide (Mag-Ox) 400 mg PO DAILY [facility] Last Admin: 05/21/17 09:51 Dose: 400 mg Montelukast Sodium (Singulair) 10 mg PO DAILY [facility] Last Admin: 05/21/17 09:51 Dose: 10 mg Nitrofurantoin Macrocrystals (Macrobid) 100 mg PO Q12 [facility] Stop: 05/26/17 22:01 Last Admin: 05/21/17 22:45 Dose: 100 mg Nitroglycerin (Nitrostat Sl Tab) 0.4 mg SL Q5M PRN PRN Reason: chest pain Non-Formulary Medication (Biotin [Biotin]) 100 mg PO DAILY [facility] Last Admin: 05/21/17 09:52 Dose: Not Given Non-Formulary Medication (Linagliptin [Tradjenta]) 5 mg PO DAILY [facility] Last Admin: 05/21/17 09:53 Dose: Not Given Nystatin (Nystop Topical Powder) 0 gm TOP BID [facility] Last Admin: 05/21/17 17:28 Dose: 1 applic Potassium Chloride (Klor-Con 10) 10 meq PO BRK [facility] Last Admin: 05/21/17 07:52 Dose: 10 meq Prasugrel (Effient) 10 mg PO DAILY [facility] Last Admin: 05/21/17 09:50 Dose: 10 mg Sertraline HCl (Zoloft) 50 mg PO DAILY [facility] Last Admin: 05/21/17 09:50 Dose: 50 mg Zolpidem Tartrate (Ambien) 5 mg PO HS PRN; Protocol PRN Reason: Insomnia Last Admin: 05/21/17 22:45 Dose: 5 mg - Labs Labs: 05/17/17 06:30 05/20/17 08:55 PT 41.6 SECONDS (9.4-12.5) H 05/22/17 06:20 INR 3.68 (0.93-1.08) H* 05/22/17 06:20 APTT 53.0 Seconds (25.1-36.5) H 05/12/17 21:00 Assessment and Plan - Assessment and Plan (Free Text) Assessment: Depression/Self Injury/Suicide attempt CP/+ trop/NSTEMI Severe CAD/S/P recent RCA PCI (difficult and complex lesions) CAD/Remote CABG/[place]/Sev. LVD CHF AF ICD COPD Extensive bowel resection Former Smoker] Social Problems: Homeless/Alienated from family Plan: Hold warfarin for now. Resume at 4 mg. per day which was her pre- hospitalization dosage. Continue other cardiac meds. AB for UTI Her cardiac status appears stable at this time but she is high risk for future events. Ok for transfer to Psych Unit. As per Drs. Lebron and Harvey, ID and Psych.
[2017-05-22] MEDS: Potassium Chloride 10 mEq ER Tab PO SCH (09:36)
[2017-05-22] MEDS: Magnesium Oxide 400 mg Tab UD PO SCH (09:38)
[2017-05-22] MEDS: diltiaZEM 180 mg/24 Hours CD Cap PO SCH (09:38)
[2017-05-22] MEDS: BIOTIN PO SCH (09:38)
[2017-05-22] MEDS: Lidocaine 5% Patch TD SCH (09:38)
[2017-05-22] MEDS: Nystatin 100,000 Units/gm Topical Pow(15 gm) TOP SCH (09:38)
[2017-05-22] MEDS: Non Formulary Medication (Linagliptin [Tradjenta] 5 MG) PO SCH (09:39)
[2017-05-22 09:40] VITALS: BP 116/58; PULSE 73
== END 2017-05-22 13:53 | DRG 280 ==
LOC: ED 19:31 → ERH 22:41 → 2RSO 05-13 01:10
PROVIDERS: ADMIT Internal Medicine; ATTEND Internal Medicine
PROC: 0HQEXZZ Repair Left Lower Arm Skin, External Approach (ICD-10-PCS; principal; 2017-05-12)
DX: I21.4 Non-ST elevation (NSTEMI) myocardial infarction (principal); I50.23 Acute on chronic systolic (congestive) heart failure; D68.9 Coagulation defect, unspecified; E11.65 Type 2 diabetes mellitus with hyperglycemia; E87.1 Hypo-osmolality and hyponatremia; F32.2 Major depressive disorder, single episode, severe without psychotic features; E83.42 Hypomagnesemia; I48.2 Chronic atrial fibrillation; B35.6 Tinea cruris; I42.9 Cardiomyopathy, unspecified; N39.0 Urinary tract infection, site not specified; I11.0 Hypertensive heart disease with heart failure; E87.8 Other disorders of electrolyte and fluid balance, not elsewhere classified; I27.20 Pulmonary hypertension, unspecified; J43.9 Emphysema, unspecified; B37.3 Candidiasis of vulva and vagina; I25.119 Atherosclerotic heart disease of native coronary artery with unspecified angina pectoris; K58.9 Irritable bowel syndrome, unspecified; B96.20 Unspecified Escherichia coli [E. coli] as the cause of diseases classified elsewhere; D64.9 Anemia, unspecified; E78.00 Pure hypercholesterolemia, unspecified; F43.20 Adjustment disorder, unspecified; F63.9 Impulse disorder, unspecified; G47.33 Obstructive sleep apnea (adult) (pediatric); I25.2 Old myocardial infarction; S51.811A Laceration without foreign body of right forearm, initial encounter; S51.812A Laceration without foreign body of left forearm, initial encounter; S61.511A Laceration without foreign body of right wrist, initial encounter; S61.512A Laceration without foreign body of left wrist, initial encounter; X78.9XXA Intentional self-harm by unspecified sharp object, initial encounter; Z59.0 Homelessness; Z79.01 Long term (current) use of anticoagulants; Z79.4 Long term (current) use of insulin; Z79.899 Other long term (current) drug therapy; Z86.73 Personal history of transient ischemic attack (TIA), and cerebral infarction without residual deficits; Z87.01 Personal history of pneumonia (recurrent); Z87.440 Personal history of urinary (tract) infections; Z87.891 Personal history of nicotine dependence; Z91.14 Patient's other noncompliance with medication regimen; Z91.19 Patient's noncompliance with other medical treatment and regimen; Z95.0 Presence of cardiac pacemaker; Z95.1 Presence of aortocoronary bypass graft; Z95.5 Presence of coronary angioplasty implant and graft; Z95.810 Presence of automatic (implantable) cardiac defibrillator; Z98.1 Arthrodesis status; Z88.8 Allergy status to other drugs, medicaments and biological substances; Z16.12 Extended spectrum beta lactamase (ESBL) resistance

== ENCOUNTER 2017-05-22 13:55 | Inpatient (IN) | payer MEDICARE, MEDICAID ==
[2017-05-22 15:09] VITALS: BMI 20.9
--- NOTE | 2017-05-22 15:46 | PCM.BM ---
<Flako Mcneill - Last Filed: 05/22/17 15:43> Treatment Plan Problems - Problems identified on initial assessmt Depression Date Initiated: 05/22/17 Time Initiated: 15:00 Assessment reference: NA Status: Active Priority: 1 Comment: verbalizes feeling depressed due to her living situation Altered sleep pattern Date Initiated: 05/22/17 Time Initiated: 15:00 Assessment reference: NA Status: Active Comment: Reported sleep difficulty Disposition Date Initiated: 05/22/17 Time Initiated: 15:00 Assessment reference: NA Status: Active Treatment assets and liabiliti Patient Assests: cooperative, insightful, self-reliant, ADL independent, negotiates basic needs, cognitively intact Patient Liabilities: poor support system, medical problems - Milieu Protocol Maintain good personal hygiene: daily Remind patient to perform daily oral care , every shift Encourage regular showers, every shift Assist patient to perform ADL's Conduct patient checks and document Observation sheet: Q15 minutes Maintain personal safety: every shift Educate patient to report safety concerns to staff, every shift Monitor environment for contraband/sharps Medication safety: Monitor for expected outcome, potential side effects: every shift, Assess barriers to learning: every shift, Assess readiness for medication education: every shift Discharge/Continuing Care - Education Needs Education Needs: Patient Medication, Patient Diagnosis/Disease Process, Patient Coping Skills, Patient Anger Management skills, Patient Placement options, Patient Community resources, Patient Activities of Daily Living, Patient Nutrition, Patient Health Practices/Safety, Patient Personal Hygiene/Grooming - Discharge Discharge Criteria: Tolerates medication w/o severe side effects, Normal sleep pattern, Ability to care for self, Reduction of target symptoms <Simi Wild - Last Filed: 05/23/17 16:31> Family Contact Family involvement: Family/SO is involved Family contact: Patient agrees to contact Family contact name: Kristen Francis (sister) Family contacted how many times per week?: 2
[2017-05-22] MEDS ORDERED: guaiFENesin 100 mg/5 ml Syrup UD PO PRN (16:52)
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
[2017-05-22] MEDS: Albuterol-Ipratrop 3 mg / 0.5 (3 ml) UD IH SCH (20:10)
[2017-05-22] MEDS: Insulin Detemir 100 units/ml Vial (Levemir) SC SCH (21:14)
[2017-05-22] MEDS: Insulin Lispro (humaLOG) LOW Coverage SC SCH (21:22)
[2017-05-23] MEDS: Albuterol-Ipratrop 3 mg / 0.5 (3 ml) UD IH SCH ×4 (01:50→22:00)
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
[2017-05-23 07:52] LABS: INR 3.64 (0.93-1.08)
[2017-05-23 07:56] LABS: CHOLESTEROL 156 mg/dL (130-200)
[2017-05-23] MEDS: Nystatin 100,000 Units/gm Topical Pow(15 gm) TOP SCH ×2 (08:00→17:07)
[2017-05-23] MEDS: diltiaZEM 180 mg/24 Hours CD Cap PO SCH (08:01)
[2017-05-23] MEDS: Magnesium Oxide 400 mg Tab UD PO SCH (08:02)
[2017-05-23] MEDS: Lidocaine 5% Patch TD SCH (08:02)
[2017-05-23] MEDS: Potassium Chloride 10 mEq ER Tab PO SCH (08:02)
[2017-05-23] MEDS: Insulin Lispro (humaLOG) LOW Coverage SC SCH ×4 (08:03→21:27)
[2017-05-23] MEDS: BIOTIN PO SCH (08:04)
[2017-05-23] MEDS: TRADJENTA 5 MG PO SCH (08:04)
--- NOTE | 2017-05-23 09:03 | PN ---
DATE: 05/22/2017 She is being seen today for followup consultation. PRESENTATION: The patient is a 72-year-old female of average height built, dressed in a hospital gown. She is in her hospital bed. The patient has been medically cleared and she had screened by the screeners at [facility] who felt that she met the criteria for involuntary hospitalization; however, they do not have a bed, so they are not expecting to have a bed within the next foreseeable future, so the client was again offered inpatient admission voluntary in this hospital. After much discussion, the patient is agreeable to doing this and she did sign the consent to come to . She originally had been admitted medically for suicide attempts. She had cut her wrist, this was a second time in a month. She has a history of CAD, neck fusion, triple bypass, COPD, ICD pacemaker defibrillator, ileostomy, kidney failure, a reverse ileostomy, and irritable bowel syndrome. She has had heart attack with 3 stents and has history asthma and CHF. She is medically cleared to go to the psychiatric unit and she is willing to goes that she will be transferred there under services Dr. Becerra. MENTAL STATUS EXAMINATION: The patient is alert and oriented x3. Her eye contact is good. Her behavior is overtly cooperative. He speech, rate and volume are within normal limits. Mood is angry. Affect is constricted. Her thoughts are goal directed, besides concrete and rigid in her thought processes. Her focus and concentration, she indicates are good. Her memory both short and longterm is adequate. Her appetite she reports is normal and she reports sleeping well at night. PLAN: The client will be transferred to for voluntary psychiatric admission. She will continue to be followed medically while on the unit. She, additionally, will be provided with the services of social work services to additionally plan for her eventual discharge from the unit. Michelle De Oliveira APN
--- NOTE | 2017-05-23 16:19 | CP.PCM.PN ---
Subjective - Date & Time of Evaluation Date of Evaluation: 05/23/17 Time of Evaluation: 15:45 - Subjective Subjective: Infectious Disease Follow Up: May 23, 2017 72 yo female with extensive past medical history that includes coronary artery disease, cardiomyopathy, pulmonary hypertension, atrial fibrillation, chronic obstructive lung disease, diabetes mellitus, and multiple attempts at suicide. The patient was initially admitted for a suicide attempt where she cut her wrist after having problems with her family on Thanksgiving. She is currently on one-to-one evaluation. During this hospitalization, the patient was found to have ESBL+ E. coli in the urine. The patient was on the medical floor in early April 2017 with a finding of ESBL+ E. Coli in the urine as well. She received Meropenem for treatment at this time. Currently on PO Nitrofuratoin for treatment. Completed 3 days of Meropenem for treatment. Monitor renal function. Repeat urine culture sent which showed no growth. Suicide attempt - patient transferred to psych floor yesterday. Objective - Vital Signs/Intake and Output Vital Signs (last 24 hours): Temp Pulse Resp BP Pulse Ox 97.3 F L 91 H 20 119/61 05/23/17 06:48 05/23/17 06:48 05/23/17 06:48 05/23/17 08:00 - Medications Medications: Current Medications Acetaminophen (Tylenol 325mg Tab) 650 mg PO Q6H PRN PRN Reason: Pain, moderate (4-7) Albuterol/Ipratropium (Duoneb 3 Mg/0.5 Mg (3 Ml) Ud) 3 ml IH [id number] [facility] Last Admin: 05/23/17 13:28 Dose: Not Given Aspirin (Aspirin Chewable) 81 mg PO DAILY [facility] Last Admin: 05/23/17 08:01 Dose: 81 mg Atorvastatin Calcium (Lipitor) 20 mg PO DAILY [facility] Last Admin: 05/23/17 08:01 Dose: 20 mg Carvedilol (Coreg) 25 mg PO BID [facility] Last Admin: 05/23/17 08:00 Dose: 25 mg Digoxin (Lanoxin) 0.25 mg PO 1400 [facility] Diltiazem HCl (Cardizem Cd) 180 mg PO DAILY [facility] Last Admin: 05/23/17 08:01 Dose: 180 mg Docusate Sodium (Colace) 100 mg PO BID [facility] Famotidine (Pepcid) 40 mg PO DAILY [facility] Last Admin: 05/23/17 08:02 Dose: 40 mg Ferrous Sulfate (Feosol) 324 mg PO DAILY [facility] Last Admin: 05/23/17 08:01 Dose: 324 mg Furosemide (Lasix) 40 mg PO BID [facility] Last Admin: 05/23/17 08:00 Dose: 40 mg Glipizide (Glucotrol) 5 mg PO ACB [facility] Last Admin: 05/23/17 08:02 Dose: 5 mg Guaifenesin (Robitussin) 100 mg PO Q4H PRN PRN Reason: Cough Home Med (Home Med) 1 unit PO DAILY [facility] Last Admin: 05/23/17 08:04 Dose: Not Given Home Med (Home Med) 1 unit PO DAILY [facility] Last Admin: 05/23/17 08:04 Dose: Not Given Hydralazine HCl (Apresoline) 25 mg PO TID [facility] Last Admin: 05/23/17 12:22 Dose: 25 mg Insulin Detemir (Levemir) 12 unit SC HS [facility] Last Admin: 05/22/17 21:14 Dose: 12 unit Insulin Human Lispro (Humalog Low) 0 units SC ACHS [facility] PRN Reason: Protocol Last Admin: 05/23/17 08:03 Dose: Not Given Lidocaine (Lidoderm) 1 ea TD DAILY [facility] Last Admin: 05/23/17 08:02 Dose: 1 ea Lisinopril (Zestril) 20 mg PO DAILY [facility] Last Admin: 05/23/17 08:02 Dose: 20 mg Loratadine (Claritin) 10 mg PO DAILY [facility] Last Admin: 05/23/17 08:01 Dose: 10 mg Magnesium Oxide (Mag-Ox) 400 mg PO DAILY [facility] Last Admin: 05/23/17 08:02 Dose: 400 mg Montelukast Sodium (Singulair) 10 mg PO DAILY [facility] Last Admin: 05/23/17 08:01 Dose: 10 mg Nitrofurantoin Macrocrystals (Macrobid) 100 mg PO Q12 [facility] Stop: 05/26/17 18:00 Last Admin: 05/23/17 05:33 Dose: 100 mg Nystatin (Nystop Topical Powder) 1 gm TOP BID [facility] Last Admin: 05/23/17 08:00 Dose: 1 gm Potassium Chloride (Klor-Con 10) 10 meq PO BRK [facility] Last Admin: 05/23/17 08:02 Dose: 10 meq Prasugrel (Effient) 10 mg PO DAILY [facility] Last Admin: 05/23/17 08:01 Dose: 10 mg Sertraline HCl (Zoloft) 50 mg PO DAILY [facility] Last Admin: 05/23/17 08:02 Dose: 50 mg Zolpidem Tartrate (Ambien) 5 mg PO HS PRN; Protocol PRN Reason: Insomnia Last Admin: 05/23/17 00:48 Dose: 5 mg - Labs Labs: PT 41.1 SECONDS (9.4-12.5) H 05/23/17 07:30 INR 3.64 (0.93-1.08) H* 05/23/17 07:30 - Constitutional Appears: Non-toxic, No Acute Distress, Chronically Ill - Head Exam Head Exam: ATRAUMATIC, NORMOCEPHALIC - Eye Exam Eye Exam: EOMI, PERRL Pupil Exam: NORMAL ACCOMODATION, PERRL - ENT Exam ENT Exam: Mucous Membranes Moist, Normal External Ear Exam, TM's Normal Bilaterally - Neck Exam Neck Exam: Full ROM, Normal Inspection - Respiratory Exam Respiratory Exam: Clear to Ausculation Bilateral, NORMAL BREATHING PATTERN. absent: Rales, Rhonchi, Wheezes - Cardiovascular Exam Cardiovascular Exam: REGULAR RHYTHM, RRR, +S1, +S2 - GI/Abdominal Exam GI & Abdominal Exam: Soft, Normal Bowel Sounds. absent: Distended, Tenderness - Extremities Exam Extremities Exam: Full ROM, Normal Inspection - Neurological Exam Neurological Exam: Alert, Awake, CN II-XII Intact, Oriented x3 - Psychiatric Exam Psychiatric exam: Normal Affect, Normal Mood - Skin Skin Exam: Intact, Normal Color Assessment and Plan - Assessment and Plan (Free Text) Assessment: 72 yo female with original admission for suicide attempt by slitting wrists. She was found to have a UTI again with ESBL + E. Coli. The patient had an admission here less than a month ago for similar infection. The patient was treated with 7 days of Meropenem at that time. Currently she is on Nitrofuratoin. Will restart Meropenem with Nitrofuratoin for treatment. The patient's cultures on the last hospitalization had shown clearance of the infection prior to discharge. The patient will continue on PO Nitrofuratoin for prolonged treatment while Psych floor. Will give 10-14 day course. Currently in psych for suicide attempt. Thank you for allowing me to participate in the care of the patient, we will follow with you.
[2017-05-23] MEDS: Insulin Detemir 100 units/ml Vial (Levemir) SC SCH (21:19)
--- NOTE | 2017-05-23 23:12 | PN ---
DATE: 05/23/2017 REFERRING PHYSICIAN: Beti Hackett MD SUBJECTIVE: She is lying in the bed. Night was unremarkable. Doing well in therapy. No headache. No rhinitis. No nausea. No vomiting. No diarrhea. No leg pain or leg swelling. PHYSICAL EXAMINATION GENERAL: In no acute distress. VITAL SIGNS: Temperature is 98, heart rate is 65, respiratory rate is 20, blood pressure 103/46, and pulse ox not available. HEENT: Moist mucous membranes. Crowded airway. NECK: Supple. No JVD. HEART: S1 and S2. LUNGS: Has a fair airflow with few rhonchi. ABDOMEN: Soft and nontender. No organomegaly. EXTREMITIES: There is no edema. NEUROLOGICAL: Awake, alert. Follow simple commands. LABORATORY DATA: Shows INR 1.64. TSH 0.61. Cholesterol 156. RPR nonreactive. MEDICATIONS: She is on Ambien 5 mg at bedtime p.r.n., hydralazine 25 mg 3 times a day, aspirin 81 mg daily, Cardizem 180 mg daily, Claritin 10 mg daily, Colace 100 mg twice a day, Coreg 25 mg twice a day, DuoNeb q. 6 hours, Effient 10 mg daily, ferrous sulfate 325 mg daily, glipizide 5 mg a.c.b., potassium 10 mEq daily, digoxin 0.25 mg daily, Lasix 40 mg twice a day, Levemir 12 units subcutaneously at bedtime, Lidoderm patch at affected area daily, Lipitor 20 mg daily, nitrofurantoin 100 mg twice a day, magnesium oxide 400 mg daily, Pepcid 40 mg daily, Robitussin 100 mg q. 4 hour, Singulair 10 mg daily, Tylenol p.r.n., Zestril 20 mg daily, and Zoloft 50 mg daily. IMPRESSION AND PLAN: Status post suicidal attempt, depression, myocardial infarction, coronary artery disease, history of coronary stent, cardiomyopathy, chronic lung disease, obstructive sleep apnea syndrome, atrial fibrillation, hypertension, diabetes, and depression. Admitted to Psychiatry for therapy. Pulmonary point of view, doing okay, keep head at 45 degree, bronchodilator, gastric prophylaxis, diuretics, beta-joshua, afterload net sorter. Fall precaution. Thank you and we will follow with you. Rosina Gabriel MD
--- NOTE | 2017-05-24 00:48 | CON ---
DATE: CHIEF COMPLAINT: Depression, coronary artery disease, UTI. HISTORY OF PRESENT ILLNESS: Ms. Mallorie William is 72-year-old lady with multiple medical problems, history of cardiomyopathy with left ventricular function, coronary artery disease, coronary artery stent, diabetes mellitus, has two admissions for suicide attempts, tried to cut her wrist, was admitted on the medical floor for chest pain, is almost homeless. First, she was refusing to go to the Psych Department then finally she agreed, now looking comfortable. No nausea, vomiting, or diarrhea. No hematuria or hematochezia. PAST MEDICAL HISTORY: As above. Obstructive lung disease, cardiomyopathy, coronary artery disease, coronary artery stent, pulmonary hypertension, diabetes mellitus. ALLERGIES: THE PATIENT IS ALLERGIC TO PLAVIX. SOCIAL HISTORY: She is a former smoker. No alcohol. No drugs. FAMILY HISTORY: Father and mother, noncontributory. PHYSICAL EXAMINATION: VITAL SIGNS: Temperature 97.3, pulse 91, blood pressure 119/51, respiratory rate 20. HEENT: Head is normocephalic and atraumatic. Eyes; PERRLA. Extraocular muscles are intact. Conjunctivae clear. Nose patent. Mucous membranes moist. NECK: Supple. No carotid bruit. No JVD or thyromegaly. CHEST: Bilaterally symmetrical. HEART: S1 and S2 positive. LUNGS: Clear to auscultation. ABDOMEN: Soft. Bowel sounds present. No organomegaly. EXTREMITIES: No edema. No cyanosis. NEUROLOGICAL: The patient is awake and alert. Moving all four extremities. No focal deficits. MEDICATIONS: Ambien, hydralazine, aspirin, Cardizem, losartan, albuterol, ferrous sulfate, glipizide. LABORATORY DATA: PT is 41.1 and INR 3.64. Glucose 165, triglyceride 150. Cholesterol 156. TSH 0.61. RPR negative. ASSESSMENT AND PLAN: Ms. Mallorie William is 72-year-old lady with multiple medical problems, had multiple admissions and emergency room visits, had suicide attempts x2 by splitting her wrist. She has urinary tract infection with extended-spectrum beta-lactamase plus Escherichia coli. Last admission was less than one month ago for similar infection. The patient was treated with 7 days of meropenem at that time. Currently, she is on nitrofurantoin. Dr. Cohn, ID on the case. He is starting meropenem with the nitrofurantoin. The patient's cultures on last hospitalization has shown clearance of the infection prior to discharge. The patient will continue p.o. nitrofurantoin for prolonged treatment while on the Psych floor. We will give nitrofuntine 14 days of course. History of depression, chronic obstructive pulmonary disease, cardiomyopathy, atrial fibrillation, on Coumadin, today her INR is high, holding Coumadin today. We will repeat INR. History of myocardial infarction, obstructive sleep apnea syndrome, hypertension, diabetes mellitus. We will continue present treatment. Appreciated Psych input. Thank you for consulting. We will follow up. Tanisha Lebron MD MTDD
[2017-05-24] MEDS: Albuterol-Ipratrop 3 mg / 0.5 (3 ml) UD IH SCH ×4 (01:23→21:42)
[2017-05-24 07:37] LABS: HEMATOCRIT 31.8 % (36.0-48.0); MEAN CELL VOLUME 91.9 fl (80.0-105.0); MEAN CORPUSCULAR HEMOGLOBIN 29.5 pg (25.0-35.0); MEAN CORPUSCULAR HGB CONC 32.1 g/dl (31.0-37.0); MEAN PLATELET VOLUME 8.9 fl (7.0-11.0); RED CELL DISTRIBUTION WIDTH 16.5 % (11.5-14.5); WHITE BLOOD COUNT 6.7 10^3/ul (4.5-11.0)
[2017-05-24 07:51] LABS: INR 3.26 (0.93-1.08)
[2017-05-24 08:03] LABS: CALCIUM 10.2 mg/dL (8.4-10.5); POTASSIUM 4.9 mmol/L (3.6-5.0)
--- NOTE | 2017-05-24 08:28 | PCM.PYCHPN ---
Psychiatric Progress Note - Psychiatric Progress Note Patient seen today, length of contact: 25 min Patient Chief Complaint: "okay" Problems Identified/Issues Discussed: I reviewed assessment and recent notes. Patient was seen in the dayroom. She is fairly groomed and oriented x3. Patient is familiar to me from prior interviews while she was on the medical floor. She reports that her mood is "okay" however reports concerns about recent dizziness. She feels this is secondary to medication changes on the psychiatric unit. Her affect is superficial and constricted with feigned brightness. Thought process remains coherent. Patient denies any other new side effects, discomfort or pain. Staff note that patient appears depressed and she has been reclusive on the unit. There were no behavioral issues overnight. Diagnostic Results: Major Depression, Severe Impulse control disorder r/o Personality Disorder r/o early stages of Dementia Medication Change: Yes (Changed Lipitor and Zoloft to HS) Medical Record Reviewed: Yes Mental Status Examination - Cognitive Function Orientation: Person, Place, Situation Attention: WNL - Mood Mood: Other ("okay") - Affect Affect: Constricted, Other (superficial and constricted with feigned brightness) - Speech Speech: Appropriate - Formal Thought Process Formal Thought Process: No Impairment - Suicidal Ideation Suicidal Ideation: No - Homicidal Ideation Homicidal Ideation: No Goal/Treatment Plan - Goal/Treatment Plan Progress Toward Problem(s) and Goals/Treatment Plan: * grp, milieu and supportive tx * zoloft 50 mg po daily changed to HS due to patient's complaints of daytime dizziness, patient reports she took this medication at night * Lipitor also changed from daytime to HS, patient reports she took this medication at night * ambien 5 mg HS prn for insomnia * Vitals reviewed and noted below: Selected Entries 05/23/17 05/23/17 05/23/17 06:48 08:00 15:00 Temperature 97.3 F L Pulse Rate 91 H 65 Respiratory 20 Rate Blood Pressure 119/61 119/61 103/46 L * New weekend labs thus far Laboratory Results - last 24 hr 05/23/17 05/23/17 05/23/17 07:30 09:00 11:24 WBC RBC Hgb Hct MCV MCH MCHC RDW Plt Count MPV PT INR Sodium Potassium Chloride Carbon Dioxide Anion Gap BUN Creatinine Est GFR ( Amer) Est GFR (Non-Af Amer) POC Glucose (mg/dL) 165 H Random Glucose Calcium TSH 3rd Generation 0.61 RPR Nonreactive 05/23/17 05/24/17 05/24/17 21:10 05:30 05:30 WBC 6.7 D RBC 3.46 L Hgb 10.2 L Hct 31.8 L MCV 91.9 MCH 29.5 MCHC 32.1 RDW 16.5 H Plt Count 409 MPV 8.9 PT 36.7 H INR 3.26 H Sodium Potassium Chloride Carbon Dioxide Anion Gap BUN Creatinine Est GFR ( Amer) Est GFR (Non-Af Amer) POC Glucose (mg/dL) 134 H Random Glucose Calcium TSH 3rd Generation RPR 05/24/17 05:30 WBC RBC Hgb Hct MCV MCH MCHC RDW Plt Count MPV PT INR Sodium 136 Potassium 4.9 Chloride 100 Carbon Dioxide 25 Anion Gap 16 BUN 33 H Creatinine 1.4 H Est GFR ( Amer) 45 Est GFR (Non-Af Amer) 37 POC Glucose (mg/dL) Random Glucose 128 H Calcium 10.2 TSH 3rd Generation RPR
[2017-05-24] MEDS: TRADJENTA 5 MG PO SCH (08:43)
[2017-05-24] MEDS: Insulin Lispro (humaLOG) LOW Coverage SC SCH ×3 (08:43→16:34)
[2017-05-24] MEDS: BIOTIN PO SCH (08:43)
[2017-05-24] MEDS: Nystatin 100,000 Units/gm Topical Pow(15 gm) TOP SCH ×2 (08:44→17:01)
[2017-05-24] MEDS: Lidocaine 5% Patch TD SCH (08:44)
[2017-05-24] MEDS: diltiaZEM 180 mg/24 Hours CD Cap PO SCH ×3 (08:46→21:49)
[2017-05-24] MEDS: Potassium Chloride 10 mEq ER Tab PO SCH (08:46)
[2017-05-24] MEDS: Magnesium Oxide 400 mg Tab UD PO SCH (08:46)
[2017-05-24] MEDS: Digoxin 250 mcg (0.25 mg) Tab PO SCH (13:03)
--- NOTE | 2017-05-24 16:07 | CP.PCM.PN ---
Subjective - Date & Time of Evaluation Date of Evaluation: 05/24/17 Time of Evaluation: 16:30 - Subjective Subjective: Infectious Disease Follow Up: May 24, 2017 72 yo female with extensive past medical history that includes coronary artery disease, cardiomyopathy, pulmonary hypertension, atrial fibrillation, chronic obstructive lung disease, diabetes mellitus, and multiple attempts at suicide. The patient was initially admitted for a suicide attempt where she cut her wrist after having problems with her family on Thanksgiving. She is currently on one-to-one evaluation. During this hospitalization, the patient was found to have ESBL+ E. coli in the urine. The patient was on the medical floor in early April 2017 with a finding of ESBL+ E. Coli in the urine as well. She received Meropenem for treatment at this time. Currently on PO Nitrofuratoin for treatment. Completed 3 days of Meropenem for treatment. Monitor renal function. Repeat urine culture sent which showed no growth. Suicide attempt - patient transferred to psych floor yesterday. Objective - Vital Signs/Intake and Output Vital Signs (last 24 hours): Temp Pulse Resp BP Pulse Ox 97.6 F 66 20 135/72 05/24/17 06:41 05/24/17 06:41 05/24/17 06:41 05/24/17 08:46 - Medications Medications: Current Medications Acetaminophen (Tylenol 325mg Tab) 650 mg PO Q6H PRN PRN Reason: Pain, moderate (4-7) Last Admin: 05/24/17 02:29 Dose: 650 mg Albuterol/Ipratropium (Duoneb 3 Mg/0.5 Mg (3 Ml) Ud) 3 ml IH [id number] [facility] Last Admin: 05/24/17 01:23 Dose: Not Given Aspirin (Aspirin Chewable) 81 mg PO DAILY [facility] Last Admin: 05/24/17 08:46 Dose: 81 mg Atorvastatin Calcium (Lipitor) 20 mg PO [facility] Carvedilol (Coreg) 25 mg PO BID [facility] Last Admin: 05/24/17 09:22 Dose: Not Given Digoxin (Lanoxin) 0.25 mg PO 1400 [facility] Last Admin: 05/24/17 13:03 Dose: 0.25 mg Diltiazem HCl (Cardizem) 180 mg PO [facility] Docusate Sodium (Colace) 100 mg PO BID [facility] Last Admin: 05/24/17 08:45 Dose: 100 mg Famotidine (Pepcid) 40 mg PO DAILY [facility] Last Admin: 05/24/17 08:44 Dose: 40 mg Ferrous Sulfate (Feosol) 324 mg PO DAILY [facility] Last Admin: 05/24/17 08:45 Dose: 324 mg Furosemide (Lasix) 40 mg PO BID [facility] Last Admin: 05/24/17 16:04 Dose: Not Given Glipizide (Glucotrol) 5 mg PO ACB [facility] Last Admin: 05/24/17 08:48 Dose: 5 mg Guaifenesin (Robitussin) 100 mg PO Q4H PRN PRN Reason: Cough Home Med (Home Med) 1 unit PO DAILY [facility] Last Admin: 05/24/17 08:43 Dose: Not Given Home Med (Home Med) 1 unit PO DAILY [facility] Last Admin: 05/24/17 08:43 Dose: Not Given Hydralazine HCl (Apresoline) 25 mg PO TID [facility] Last Admin: 05/24/17 12:59 Dose: Not Given Insulin Detemir (Levemir) 12 unit SC HS [facility] Last Admin: 05/23/17 21:19 Dose: 12 unit Insulin Human Lispro (Humalog Low) 0 units SC [facility] PRN Reason: Protocol Last Admin: 05/24/17 11:14 Dose: 1 units Lidocaine (Lidoderm) 1 ea TD DAILY [facility] Last Admin: 05/24/17 08:44 Dose: 1 ea Lisinopril (Zestril) 20 mg PO HS [facility] Loratadine (Claritin) 10 mg PO DAILY [facility] Last Admin: 05/24/17 08:44 Dose: 10 mg Magnesium Oxide (Mag-Ox) 400 mg PO DAILY [facility] Last Admin: 05/24/17 08:46 Dose: 400 mg Montelukast Sodium (Singulair) 10 mg PO DAILY [facility] Last Admin: 05/24/17 08:46 Dose: 10 mg Nitrofurantoin Macrocrystals (Macrobid) 100 mg PO Q12 [facility] Stop: 05/26/17 18:00 Last Admin: 05/24/17 05:39 Dose: 100 mg Nystatin (Nystop Topical Powder) 1 gm TOP BID [facility] Last Admin: 05/24/17 08:44 Dose: 1 gm Potassium Chloride (Klor-Con 10) 10 meq PO BRK [facility] Last Admin: 05/24/17 08:46 Dose: 10 meq Prasugrel (Effient) 10 mg PO DAILY [facility] Last Admin: 05/24/17 08:46 Dose: 10 mg Sertraline HCl (Zoloft) 50 mg PO HS [facility] Zolpidem Tartrate (Ambien) 5 mg PO HS PRN; Protocol PRN Reason: Insomnia Last Admin: 05/23/17 21:22 Dose: 5 mg - Labs Labs: 05/24/17 05:30 05/24/17 05:30 PT 36.7 SECONDS (9.4-12.5) H 05/24/17 05:30 INR 3.26 (0.93-1.08) H 05/24/17 05:30 - Constitutional Appears: Non-toxic, No Acute Distress, Chronically Ill - Head Exam Head Exam: ATRAUMATIC, NORMOCEPHALIC - Eye Exam Eye Exam: EOMI, PERRL Pupil Exam: NORMAL ACCOMODATION, PERRL - ENT Exam ENT Exam: Mucous Membranes Moist, Normal External Ear Exam, TM's Normal Bilaterally - Neck Exam Neck Exam: Full ROM, Normal Inspection - Respiratory Exam Respiratory Exam: Clear to Ausculation Bilateral, NORMAL BREATHING PATTERN. absent: Rales, Rhonchi, Wheezes - Cardiovascular Exam Cardiovascular Exam: REGULAR RHYTHM, RRR, +S1, +S2 - GI/Abdominal Exam GI & Abdominal Exam: Soft, Normal Bowel Sounds. absent: Distended, Tenderness - Extremities Exam Extremities Exam: Full ROM, Normal Inspection - Neurological Exam Neurological Exam: Alert, Awake, CN II-XII Intact, Oriented x3 - Psychiatric Exam Psychiatric exam: Normal Affect, Normal Mood - Skin Skin Exam: Intact, Normal Color Assessment and Plan - Assessment and Plan (Free Text) Assessment: 72 yo female with original admission for suicide attempt by slitting wrists. She was found to have a UTI again with ESBL + E. Coli. The patient had an admission here less than a month ago for similar infection. The patient was treated with 7 days of Meropenem at that time. Currently she is on Nitrofuratoin. Will restart Meropenem with Nitrofuratoin for treatment. The patient's cultures on the last hospitalization had shown clearance of the infection prior to discharge. The patient will continue on PO Nitrofuratoin for prolonged treatment while Psych floor. Will give 10-14 day course. Currently in psych for suicide attempt. Thank you for allowing me to participate in the care of the patient, we will follow with you.
--- NOTE | 2017-05-24 19:35 | PN ---
PULMONARY PROGRESS NOTE DATE: 05/24/2017 REFERRING PHYSICIAN: Beti Hackett MD SUBJECTIVE: She is participating in therapy. Night was unremarkable. Slept well. No headaches. No rhinitis. No nausea. No vomiting or diarrhea. No leg pain or leg swelling. OBJECTIVE: GENERAL: In no acute distress. VITAL SIGNS: Temperature is 98, heart rate is 66, respiratory rate is 20, blood pressure is 123/62, and pulse ox is not available. HEENT: Moist mucous membranes. Crowded airway. NECK: Supple. No JVD. LUNGS: Has a fair airflow with few rhonchi. HEART: S1 and S2. ABDOMEN: Soft and nontender. No organomegaly. EXTREMITIES: There is no edema. NEUROLOGICAL: Awake and alert. Follow simple commands. MEDICATIONS: She is on Ambien 5 mg at bedtime p.r.n., hydralazine 25 mg 3 times a day, also on aspirin 81 mg daily, Cardizem 180 mg at bedtime, Claritin 10 mg daily, Colace 100 mg twice a day, Coreg 25 mg twice a day, DuoNeb q.6 hours, Effient 10 mg daily, ferrous sulfate 325 mg daily, glipizide 5 mg a.c.b., insulin coverage, potassium 10 mEq daily, digoxin 0.25 mg daily, Lasix 40 mg twice a day, Levemir 12 units subcutaneously twice a day, patch at affected area daily, Lipitor 20 mg daily, Macrobid 100 mg twice a day, nystatin at affected area twice a day, Pepcid 40 mg daily, Robitussin 100 mg q.4 hours p.r.n., Singulair 10 mg daily, Tylenol p.r.n., Zestril 20 mg daily, and Zoloft 50 mg at bedtime. LABORATORY DATA: Shows hemoglobin 10.2, hematocrit 31.8, and WBC 6.7. INR today is 3.26. Sodium 136, potassium 4.9, chloride 100, bicarbonate 25, BUN 33, creatinine 1.4, glucose 128, and calcium is 10.2. IMPRESSION AND PLAN: Status post suicidal attempt, depression, myocardial infarction, coronary artery disease, history of coronary stent, cardiomyopathy, chronic lung disease, obstructive sleep apnea syndrome, atrial fibrillation, hypertension, diabetes, and depression. Pulmonary point of view, she is doing okay. Continue bronchodilator, keep head at 45 degrees, gastric prophylaxis, beta-joshua, afterload accounting specialist, diuretics, hold Coumadin today, and INR in the morning. Thank you and we will follow with you. Rosina Gabriel MD
--- NOTE | 2017-05-24 20:36 | PN ---
DATE: SUBJECTIVE: The patient is a 72-year-old female. The patient was seen and examined at the bedside, sitting in the activity room, and looking little bit better. No nausea, vomiting, or diarrhea. No hematuria. No hematochezia. No swelling of legs. No chest pain. No palpitations. No headache. No dizziness. PHYSICAL EXAMINATION: VITAL SIGNS: Temperature is 97.6, pulse is 68, blood pressure is 123/62, and respiratory rate is 20. HEENT: Head is normocephalic and atraumatic. Eyes; PERRLA. Extraocular muscles are intact. Conjunctivae clear. Nose patent. Mucous membranes moist. NECK: Supple. No carotid bruits, JVD, or thyromegaly. CHEST: Bilaterally symmetrical. HEART: S1 and S2 positive. LUNGS: Clear to auscultation. ABDOMEN: Soft. Bowel sounds present. No organomegaly. EXTREMITIES: No edema. No cyanosis. NEUROLOGIC: The patient is awake and alert. Moving all four extremities. No focal deficits. MEDICATIONS: Ambien, hydralazine, aspirin, Cardizem, Claritin, Colace, Coreg, Effient, iron, Glucotrol, insulin, Levemir, Lidoderm, Lipitor, topical powder, Pepcid, Robitussin, Tylenol, and Zestril. LABORATORY DATA: White blood cell 6.4, hemoglobin 10.2, hematocrit of 31.8, and platelets 409. Sodium 136, potassium 4.9, BUN 33, creatinine 1.2, and glucose 134. ASSESSMENT AND PLAN: Ms. Mallorie Francis is a 72-year-old lady with anemia, renal insufficiency, hyperglycemia, today INR is 3.26, still we will keep on holding Coumadin, RPR is negative, seen by Dr. Cohn, infectious disease, and continue nitrofurantoin. Seen by Dr. Gabriel, the patient's bottom wheeler , status post suicidal attempt, depression, myocardial infarction, coronary artery disease, history of coronary artery stent, cardiomyopathy, chronic lung disease, obstructive sleep apnea syndrome, atrial fibrillation, hypertension, depression, and now in the psych floor under the care of psychiatrist. We will continue digoxin, beta-blockers, hold Coumadin, and repeat labs. We will follow. Tanisha Lebron MD CONTRERAS
[2017-05-24] MEDS: Insulin Detemir 100 units/ml Vial (Levemir) SC SCH (21:42)
[2017-05-25 08:07] LABS: INR 2.56 (0.93-1.08)
[2017-05-25] MEDS: Magnesium Oxide 400 mg Tab UD PO SCH (08:22)
[2017-05-25] MEDS: Potassium Chloride 10 mEq ER Tab PO SCH (08:23)
[2017-05-25] MEDS: Insulin Lispro (humaLOG) LOW Coverage SC SCH ×4 (08:24→21:50)
[2017-05-25] MEDS: Albuterol-Ipratrop 3 mg / 0.5 (3 ml) UD IH SCH ×3 (08:30→21:55)
[2017-05-25] MEDS: Nystatin 100,000 Units/gm Topical Pow(15 gm) TOP SCH ×2 (08:30→16:16)
[2017-05-25] MEDS: BIOTIN PO SCH (08:30)
[2017-05-25] MEDS: Lidocaine 5% Patch TD SCH (08:30)
[2017-05-25] MEDS: TRADJENTA 5 MG PO SCH (08:30)
--- NOTE | 2017-05-25 08:43 | PCM.PYCHPN ---
Psychiatric Progress Note - Psychiatric Progress Note Patient seen today, length of contact: 25 min Patient Chief Complaint: "very irritable, I am so tired of this" Problems Identified/Issues Discussed: I reviewed recent notes and patient was seen at bedside. She is fairly groomed and oriented x3. She reports that her mood is "very irritable, I am so tired of this". Reports that she has been aggravated because of medication and diet changes though dizziness has improved. Feels her new diet is making her weaker. Sleep is also restless. Affect is irritable and dismissive. Thought process remains coherent. Patient denies any other new side effects, discomfort or pain. Staff note that patient appears depressed and she has been reclusive on the unit. There were no behavioral issues over the weekend. Diagnostic Results: Major Depression, Severe Impulse control disorder r/o Personality Disorder r/o early stages of Dementia Medication Change: No ( ) Medical Record Reviewed: Yes Mental Status Examination - Cognitive Function Orientation: Person, Place, Situation Attention: WNL - Mood Mood: Other ( "very irritable, I am so tired of this") - Affect Affect: Constricted, Other ( labile) - Speech Speech: Appropriate - Formal Thought Process Formal Thought Process: No Impairment - Suicidal Ideation Suicidal Ideation: No - Homicidal Ideation Homicidal Ideation: No Goal/Treatment Plan - Goal/Treatment Plan Progress Toward Problem(s) and Goals/Treatment Plan: * grp, milieu and supportive tx * zoloft 50 mg po daily changed to HS on 05/24/17 due to patient's complaints of daytime dizziness, patient reports she took this medication at night * ambien 5 mg HS prn for insomnia * Appreciate f/u by Dr. Cohn on 05/24/17~restarting Meropenem with Nitrofuratoin for treatment * Appreciate f/u by Dr. Lebron and Dr. Gabriel on 05/24/17~please read medical note for more details * Vitals reviewed and noted below: Selected Entries 05/24/17 05/24/17 05/24/17 06:41 08:46 16:09 Temperature 97.6 F Pulse Rate 66 68 Respiratory 20 Rate Blood Pressure 100/51 L 135/72 123/62 05/24/17 05/24/17 21:41 21:49 Temperature Pulse Rate 75 75 Respiratory Rate Blood Pressure 140/67 140/67 * New weekend labs thus far 05/25/17 05/25/17 07:00 07:13 PT 28.7 H INR 2.56 H POC Glucose (mg/dL) 150 H Laboratory Results - last 24 hr 05/23/17 05/23/17 05/23/17 07:30 09:00 11:24 WBC RBC Hgb Hct MCV MCH MCHC RDW Plt Count MPV PT INR Sodium Potassium Chloride Carbon Dioxide Anion Gap BUN Creatinine Est GFR ( Amer) Est GFR (Non-Af Amer) POC Glucose (mg/dL) 165 H Random Glucose Calcium TSH 3rd Generation 0.61 RPR Nonreactive 05/23/17 05/24/17 05/24/17 21:10 05:30 05:30 WBC 6.7 D RBC 3.46 L Hgb 10.2 L Hct 31.8 L MCV 91.9 MCH 29.5 MCHC 32.1 RDW 16.5 H Plt Count 409 MPV 8.9 PT 36.7 H INR 3.26 H Sodium Potassium Chloride Carbon Dioxide Anion Gap BUN Creatinine Est GFR ( Amer) Est GFR (Non-Af Amer) POC Glucose (mg/dL) 134 H Random Glucose Calcium TSH 3rd Generation RPR 05/24/17 05:30 WBC RBC Hgb Hct MCV MCH MCHC RDW Plt Count MPV PT INR Sodium 136 Potassium 4.9 Chloride 100 Carbon Dioxide 25 Anion Gap 16 BUN 33 H Creatinine 1.4 H Est GFR ( Amer) 45 Est GFR (Non-Af Amer) 37 POC Glucose (mg/dL) Random Glucose 128 H Calcium 10.2 TSH 3rd Generation RPR
[2017-05-25] MEDS: Digoxin 250 mcg (0.25 mg) Tab PO SCH (14:40)
--- NOTE | 2017-05-25 18:00 | CP.PCM.PN ---
Subjective - Date & Time of Evaluation Date of Evaluation: 05/25/17 Time of Evaluation: 17:30 - Subjective Subjective: Infectious Disease Follow Up: May 25, 2017 72 yo female with extensive past medical history that includes coronary artery disease, cardiomyopathy, pulmonary hypertension, atrial fibrillation, chronic obstructive lung disease, diabetes mellitus, and multiple attempts at suicide. The patient was initially admitted for a suicide attempt where she cut her wrist after having problems with her family on Thanksgiving. She is currently on one-to-one evaluation. During this hospitalization, the patient was found to have ESBL+ E. coli in the urine. The patient was on the medical floor in early April 2017 with a finding of ESBL+ E. Coli in the urine as well. She received Meropenem for treatment at this time. Currently on PO Nitrofuratoin for treatment. Completed 3 days of Meropenem for treatment. Monitor renal function. Patient is irritable. Repeat urine culture sent which showed no growth. Suicide attempt - patient transferred to psych floor yesterday. Objective - Vital Signs/Intake and Output Vital Signs (last 24 hours): Temp Pulse Resp BP Pulse Ox 97.9 F 73 17 117/44 L 05/25/17 06:46 05/25/17 16:07 05/25/17 06:46 05/25/17 16:07 - Medications Medications: Current Medications Acetaminophen (Tylenol 325mg Tab) 650 mg PO Q6H PRN PRN Reason: Pain, moderate (4-7) Last Admin: 05/25/17 15:39 Dose: 650 mg Albuterol/Ipratropium (Duoneb 3 Mg/0.5 Mg (3 Ml) Ud) 3 ml IH [id number] [facility] Last Admin: 05/25/17 13:44 Dose: Not Given Aspirin (Aspirin Chewable) 81 mg PO DAILY [facility] Last Admin: 05/25/17 08:23 Dose: 81 mg Atorvastatin Calcium (Lipitor) 20 mg PO [facility] Last Admin: 05/24/17 21:41 Dose: 20 mg Carvedilol (Coreg) 25 mg PO BID [facility] Last Admin: 05/25/17 16:07 Dose: Not Given Digoxin (Lanoxin) 0.25 mg PO 1400 [facility] Last Admin: 05/25/17 14:40 Dose: 0.25 mg Diltiazem HCl (Cardizem Cd) 180 mg PO [facility] Last Admin: 05/24/17 21:49 Dose: 180 mg Docusate Sodium (Colace) 100 mg PO BID [facility] Last Admin: 05/25/17 15:39 Dose: 100 mg Famotidine (Pepcid) 40 mg PO DAILY [facility] Last Admin: 05/25/17 08:26 Dose: 40 mg Ferrous Sulfate (Feosol) 324 mg PO DAILY [facility] Last Admin: 05/25/17 08:21 Dose: 324 mg Glipizide (Glucotrol) 5 mg PO ACB [facility] Last Admin: 05/25/17 08:21 Dose: 5 mg Guaifenesin (Robitussin) 100 mg PO Q4H PRN PRN Reason: Cough Home Med (Home Med) 1 unit PO DAILY [facility] Last Admin: 05/25/17 08:30 Dose: Not Given Home Med (Home Med) 1 unit PO DAILY [facility] Last Admin: 05/25/17 08:30 Dose: Not Given Hydralazine HCl (Apresoline) 25 mg PO TID [facility] Last Admin: 05/25/17 12:20 Dose: 25 mg Insulin Detemir (Levemir) 12 unit SC HS [facility] Last Admin: 05/24/17 21:42 Dose: Not Given Insulin Human Lispro (Humalog Low) 0 units SC [facility] PRN Reason: Protocol Last Admin: 05/25/17 16:30 Dose: Not Given Lidocaine (Lidoderm) 1 ea TD DAILY [facility] Last Admin: 05/25/17 08:30 Dose: 1 ea Lisinopril (Zestril) 20 mg PO HS [facility] Last Admin: 05/24/17 21:41 Dose: 20 mg Loratadine (Claritin) 10 mg PO DAILY [facility] Last Admin: 05/25/17 08:23 Dose: 10 mg Magnesium Oxide (Mag-Ox) 400 mg PO DAILY [facility] Last Admin: 05/25/17 08:22 Dose: 400 mg Montelukast Sodium (Singulair) 10 mg PO DAILY [facility] Last Admin: 05/25/17 08:24 Dose: 10 mg Nitrofurantoin Macrocrystals (Macrobid) 100 mg PO Q12 [facility] Stop: 05/26/17 18:00 Last Admin: 05/25/17 09:10 Dose: 100 mg Nystatin (Nystop Topical Powder) 1 gm TOP BID [facility] Last Admin: 05/25/17 16:16 Dose: Not Given Potassium Chloride (Klor-Con 10) 10 meq PO BRK [facility] Last Admin: 05/25/17 08:23 Dose: 10 meq Prasugrel (Effient) 10 mg PO DAILY [facility] Last Admin: 05/25/17 08:21 Dose: 10 mg Sertraline HCl (Zoloft) 50 mg PO HS [facility] Last Admin: 05/24/17 21:41 Dose: 50 mg Warfarin Sodium (Coumadin) 3 mg PO 1800 [facility] PRN Reason: Protocol Zolpidem Tartrate (Ambien) 5 mg PO HS PRN; Protocol PRN Reason: Insomnia Last Admin: 05/24/17 22:39 Dose: 5 mg - Labs Labs: 05/24/17 05:30 05/24/17 05:30 PT 28.7 SECONDS (9.4-12.5) H 05/25/17 07:00 INR 2.56 (0.93-1.08) H 05/25/17 07:00 - Constitutional Appears: Non-toxic, No Acute Distress, Chronically Ill - Head Exam Head Exam: ATRAUMATIC, NORMOCEPHALIC - Eye Exam Eye Exam: EOMI, PERRL Pupil Exam: NORMAL ACCOMODATION, PERRL - ENT Exam ENT Exam: Mucous Membranes Moist, Normal External Ear Exam, TM's Normal Bilaterally - Neck Exam Neck Exam: Full ROM, Normal Inspection - Respiratory Exam Respiratory Exam: Clear to Ausculation Bilateral, NORMAL BREATHING PATTERN. absent: Rales, Rhonchi, Wheezes - Cardiovascular Exam Cardiovascular Exam: REGULAR RHYTHM, RRR, +S1, +S2 - GI/Abdominal Exam GI & Abdominal Exam: Soft, Normal Bowel Sounds. absent: Distended, Tenderness - Extremities Exam Extremities Exam: Full ROM, Normal Inspection - Neurological Exam Neurological Exam: Alert, Awake, CN II-XII Intact, Oriented x3 - Psychiatric Exam Psychiatric exam: Depressed - Skin Skin Exam: Intact, Normal Color Assessment and Plan - Assessment and Plan (Free Text) Assessment: 72 yo female with original admission for suicide attempt by slitting wrists. She was found to have a UTI again with ESBL + E. Coli. The patient had an admission here less than a month ago for similar infection. The patient was treated with 7 days of Meropenem at that time. Currently she is on Nitrofuratoin. Will restart Meropenem with Nitrofuratoin for treatment. The patient's cultures on the last hospitalization had shown clearance of the infection prior to discharge. The patient will continue on PO Nitrofuratoin for prolonged treatment while Psych floor. Will give 10-14 day course. Currently in psych for suicide attempt. Patient depressed. Appears irritable. Thank you for allowing me to participate in the care of the patient, we will follow with you.
--- NOTE | 2017-05-25 20:52 | PN ---
DATE: 05/25/2017 PULMONARY PROGRESS NOTE REFERRING PHYSICIAN: Beti Hackett MD SUBJECTIVE: The patient is out of bed to chair. Night was unremarkable. No headaches. No rhinitis. No nausea. No vomiting or diarrhea. No leg pain or leg swelling. OBJECTIVE: GENERAL: In no acute distress. VITAL SIGNS: Temperature is 98, heart rate is 73, respiratory rate is 20, blood pressure is 117/44, and pulse ox is not available. HEENT: Moist mucous membranes. Crowded airway. NECK: Supple. No JVD. LUNGS: Has a fair airflow with few rhonchi. HEART: S1 and S2. ABDOMEN: Soft and nontender. No organomegaly. EXTREMITIES: No edema. NEUROLOGICAL: Awake and alert. Follow simple commands. MEDICATIONS: She is on Ambien 5 mg at bedtime, hydralazine 25 mg 3 times a day, aspirin 81 mg daily, Cardizem CD 180 mg at bedtime, Claritin 10 mg daily, Colace 100 mg twice a day, Coreg 25 mg twice a day, Coumadin 3 mg will be given, Effient 10 mg daily, ferrous sulfate 325 mg daily, glipizide 5 mg a.c.b., insulin coverage, potassium 10 mEq daily, digoxin 0.25 mg daily, Lasix 40 mg twice a day, Levemir 12 units at bedtime, Lidoderm patch at affected area, Lipitor 20 mg daily, nitrofurantoin 100 mg twice a day, magnesium oxide 200 mg daily, Pepcid 40 mg daily, Robitussin 100 mg q.4 hours, Singulair 10 mg daily, Tylenol p.r.n., Zestril 20 mg daily, and Zoloft 50 mg at bedtime. LABORATORY DATA: INR today 2.56. Blood sugar is 69. IMPRESSION AND PLAN: Status post suicidal attempt, depression, myocardial infarction, coronary artery disease, history of coronary stent, cardiomyopathy, chronic lung disease, obstructive lung disease, atrial fibrillation, hypertension, diabetes, and depression. Pulmonary point of view, she is doing okay. Continue p.o. and bronchodilator. Decrease Lasix dose. Continue with therapy, anticoagulation, fall precaution. Thank you and we will follow with you. Rosina Gabriel MD
[2017-05-25] MEDS: Insulin Detemir 100 units/ml Vial (Levemir) SC SCH (21:48)
[2017-05-25] MEDS: diltiaZEM 180 mg/24 Hours CD Cap PO SCH (21:49)
--- NOTE | 2017-05-26 01:01 | PN ---
DATE: SUBJECTIVE: The patient is a 72-year-old female. The patient is seen and examined at the bedside in the Psych Department, complaining about that her feet are dry and she has some itchiness, otherwise no fevers and no chills. PHYSICAL EXAMINATION: VITAL SIGNS: Temperature 98.6, pulse 85, blood pressure 120/60, and respiratory rate 18. HEENT: Head normocephalic and atraumatic. Eyes; PERRLA. Extraocular muscles intact. Conjunctivae clear. Nose patent. Mucous membranes moist. NECK: Supple. No carotid bruits, JVD, or thyromegaly. CHEST: Bilaterally symmetrical. HEART: S1 and S2 positive. LUNGS: Clear to auscultation. ABDOMEN: Soft. Bowel sounds present. No organomegaly. EXTREMITIES: No edema. No cyanosis. NEUROLOGIC: The patient is awake and alert. Moving all 4 extremities. No focal deficits. LABORATORY DATA: We do not have recent labs today, but I reviewed old labs. INR is 2.56. MEDICATIONS: Ambien, hydralazine, aspirin, Cardizem, Claritin, Colace, Coreg, Coumadin, Effient, Feosol, Glucotrol, potassium, Lanoxin, Levemir, Lidoderm, and Lipitor. ASSESSMENT AND PLAN: Ms. Mallorie Francis is a 72-year-old lady with multiple medical problems with atrial fibrillation. INR was high, we were holding Coumadin, today it is in therapeutic range. We started Coumadin with 3 mg p.o. We will repeat PT/INR. The patient has a history of anemia, renal insufficiency, hyperglycemia, and urinary tract infection. Infectious Disease is on the case. The patient is getting nitrofurantoin. Chronic obstructive pulmonary disease, Dr. Gabriel is on the case. The patient did try suicidal attempt x2. At this time, we have to put 3 to 4 stitches on the left wrist. Coronary artery disease, history of coronary artery stents, cardiomyopathy, obstructive sleep apnea syndrome, hypertension, and depression. The patient is in the psych floor. Appreciate psychiatrist's input. Gastrointestinal and deep venous thrombosis prophylaxis. Discussion done with the patient and the patient's nursing staff. We will put consult with the seismograph chief. Coumadin restarted. We will do PT/INR. We will follow up. Tanisha Lebron MD [facility] # [id number] [place]
[2017-05-26] MEDS: Albuterol-Ipratrop 3 mg / 0.5 (3 ml) UD IH SCH ×4 (01:09→20:35)
[2017-05-26 08:07] LABS: INR 2.07 (0.93-1.08)
[2017-05-26] MEDS: Insulin Lispro (humaLOG) LOW Coverage SC SCH ×4 (08:45→22:43)
[2017-05-26] MEDS: Nystatin 100,000 Units/gm Topical Pow(15 gm) TOP SCH ×2 (09:00→19:48)
[2017-05-26] MEDS: Potassium Chloride 10 mEq ER Tab PO SCH (09:19)
[2017-05-26] MEDS: Magnesium Oxide 400 mg Tab UD PO SCH (09:21)
[2017-05-26] MEDS: BIOTIN PO SCH (09:25)
[2017-05-26] MEDS: TRADJENTA 5 MG PO SCH (09:25)
[2017-05-26] MEDS: Lidocaine 5% Patch TD SCH (09:26)
--- NOTE | 2017-05-26 14:02 | CP.PCM.DIS ---
Provider - Provider Date of Admission: 05/22/17 13:55 Attending physician: Binh Becerra MD Primary care physician: Tanisha Lebron MD Time Spent in preparation of Discharge (in minutes): 20 Hospital Course - Lab Results Lab Results: Most Recent Lab Values WBC 6.7 10^3/ul (4.5-11.0) D 05/24/17 05:30 RBC 3.46 10^6/uL (3.5-6.1) L 05/24/17 05:30 Hgb 10.2 g/dL (12.0-16.0) L 05/24/17 05:30 Hct 31.8 % (36.0-48.0) L 05/24/17 05:30 MCV 91.9 fl (80.0-105.0) 05/24/17 05:30 MCH 29.5 pg (25.0-35.0) 05/24/17 05:30 MCHC 32.1 g/dl (31.0-37.0) 05/24/17 05:30 RDW 16.5 % (11.5-14.5) H 05/24/17 05:30 Plt Count 409 10^3/uL (120.0-450.0) 05/24/17 05:30 MPV 8.9 fl (7.0-11.0) 05/24/17 05:30 PT 23.1 SECONDS (9.4-12.5) H 05/26/17 07:30 INR 2.07 (0.93-1.08) H 05/26/17 07:30 Sodium 136 mmol/L (132-148) 05/24/17 05:30 Potassium 4.9 mmol/L (3.6-5.0) 05/24/17 05:30 Chloride 100 mmol/L (98-107) 05/24/17 05:30 Carbon Dioxide 25 mmol/L (21-33) 05/24/17 05:30 Anion Gap 16 (10-20) 05/24/17 05:30 BUN 33 mg/dL (7-21) H 05/24/17 05:30 Creatinine 1.4 mg/dl (0.7-1.2) H 05/24/17 05:30 Est GFR ( Amer) 45 05/24/17 05:30 Est GFR (Non-Af Amer) 37 05/24/17 05:30 POC Glucose (mg/dL) 175 mg/dL (65-110) H 05/26/17 11:15 Random Glucose 128 mg/dL (70-110) H 05/24/17 05:30 Calcium 10.2 mg/dL (8.4-10.5) 05/24/17 05:30 Triglycerides 150 mg/dL (35-160) 05/23/17 07:30 Cholesterol 156 mg/dL (130-200) 05/23/17 07:30 LDL Cholesterol Direct 89 mg/dL (0-129) 05/23/17 07:30 HDL Cholesterol 34 mg/dL (29-60) 05/23/17 07:30 TSH 3rd Generation 0.61 mIU/mL (0.46-4.68) 05/23/17 09:00 RPR Nonreactive (NONREACTIVE) 05/23/17 07:30 - Hospital Course Hospital Course: Patient was admitted to the medical floor for the second time due to cutting her wrist for the second time, due to impending homelessness. Patient has significant medical difficulties including COPD, multiple stents and history of stroke. Once she was medically cleared, she initially refused voluntary admission, was seen by the screeners who recommended involuntary admission. She then agreed to voluntary admission, and has been on the unit for 4 days. She did not take part in unit activities, but did socialize 1:1. She denies being suicidal or homicidal, denies the presence of hallucinations, delusions or paranoia. She indicates that she is sleeping well, eating well, and is hopeful for the future. She is planning to live with her sister and follow up her PMD for medications. Discharge Exam - Head Exam Head Exam: ATRAUMATIC, NORMOCEPHALIC Discharge Plan - Follow Up Plan Condition: GOOD Disposition: HOME/ ROUTINE Referrals: Tanisha Lebron MD [Primary Care Provider] -
[2017-05-26] MEDS: Digoxin 250 mcg (0.25 mg) Tab PO SCH (14:28)
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
--- NOTE | 2017-05-26 18:31 | CP.PCM.PN ---
Subjective - Date & Time of Evaluation Date of Evaluation: 05/26/17 Time of Evaluation: 16:15 - Subjective Subjective: Infectious Disease Follow Up: May 26, 2017 72 yo female with extensive past medical history that includes coronary artery disease, cardiomyopathy, pulmonary hypertension, atrial fibrillation, chronic obstructive lung disease, diabetes mellitus, and multiple attempts at suicide. The patient was initially admitted for a suicide attempt where she cut her wrist after having problems with her family on Thanksgiving. She is currently on one-to-one evaluation. During this hospitalization, the patient was found to have ESBL+ E. coli in the urine. The patient was on the medical floor in early April 2017 with a finding of ESBL+ E. Coli in the urine as well. She received Meropenem for treatment at this time. Currently on PO Nitrofuratoin for treatment. Completed 3 days of Meropenem for treatment. Monitor renal function. Patient is irritable. Repeat urine culture sent which showed no growth. Suicide attempt - patient transferred to psych floor yesterday. Objective - Vital Signs/Intake and Output Vital Signs (last 24 hours): Temp Pulse Resp BP Pulse Ox 97.6 F 91 H 17 80/49 L 05/26/17 12:51 05/26/17 14:26 05/25/17 06:46 05/26/17 14:26 - Medications Medications: Current Medications Acetaminophen (Tylenol 325mg Tab) 650 mg PO Q6H PRN PRN Reason: Pain, moderate (4-7) Last Admin: 05/26/17 12:51 Dose: 650 mg Albuterol/Ipratropium (Duoneb 3 Mg/0.5 Mg (3 Ml) Ud) 3 ml IH [id number] [facility] Last Admin: 05/26/17 13:07 Dose: 3 ml Aspirin (Aspirin Chewable) 81 mg PO DAILY [facility] Last Admin: 05/26/17 09:20 Dose: 81 mg Atorvastatin Calcium (Lipitor) 20 mg PO HS [facility] Last Admin: 05/25/17 21:48 Dose: 20 mg Betamethasone/Clotrimazole (Lotrisone) 0 gm TOP BID [facility] Carvedilol (Coreg) 25 mg PO BID [facility] Last Admin: 05/26/17 09:21 Dose: 25 mg Digoxin (Lanoxin) 0.25 mg PO 1400 [facility] Last Admin: 05/26/17 14:28 Dose: 0.25 mg Diltiazem HCl (Cardizem Cd) 180 mg PO HS [facility] Last Admin: 05/25/17 21:49 Dose: Not Given Docusate Sodium (Colace) 100 mg PO BID [facility] Last Admin: 05/26/17 09:19 Dose: 100 mg Famotidine (Pepcid) 40 mg PO DAILY [facility] Last Admin: 05/26/17 09:22 Dose: 40 mg Ferrous Sulfate (Feosol) 324 mg PO DAILY [facility] Last Admin: 05/26/17 09:21 Dose: 324 mg Glipizide (Glucotrol) 5 mg PO ACB [facility] Last Admin: 05/26/17 09:21 Dose: 5 mg Guaifenesin (Robitussin) 100 mg PO Q4H PRN PRN Reason: Cough Home Med (Home Med) 1 unit PO DAILY [facility] Last Admin: 05/26/17 09:25 Dose: Not Given Home Med (Home Med) 1 unit PO DAILY [facility] Last Admin: 05/26/17 09:25 Dose: Not Given Hydralazine HCl (Apresoline) 25 mg PO TID [facility] Last Admin: 05/26/17 14:26 Dose: Not Given Insulin Detemir (Levemir) 12 unit SC HS [facility] Last Admin: 05/25/17 21:48 Dose: 12 unit Insulin Human Lispro (Humalog Low) 0 units SC [facility] PRN Reason: Protocol Last Admin: 05/26/17 08:45 Dose: Not Given Lactic Acid (Lac-Hydrin 12% Cream (140 G)) 0 ea TOP BID [facility] Lidocaine (Lidoderm) 1 ea TD DAILY [facility] Last Admin: 05/26/17 09:26 Dose: 1 ea Lisinopril (Zestril) 20 mg PO HS [facility] Last Admin: 05/25/17 21:51 Dose: Not Given Loratadine (Claritin) 10 mg PO DAILY [facility] Last Admin: 05/26/17 09:22 Dose: 10 mg Magnesium Oxide (Mag-Ox) 400 mg PO DAILY [facility] Last Admin: 05/26/17 09:21 Dose: 400 mg Montelukast Sodium (Singulair) 10 mg PO DAILY [facility] Last Admin: 05/26/17 09:21 Dose: 10 mg Nystatin (Nystop Topical Powder) 1 gm TOP BID [facility] Last Admin: 05/25/17 16:16 Dose: Not Given Potassium Chloride (Klor-Con 10) 10 meq PO BRK [facility] Last Admin: 05/26/17 09:19 Dose: 10 meq Prasugrel (Effient) 10 mg PO DAILY [facility] Last Admin: 05/26/17 09:20 Dose: 10 mg Sertraline HCl (Zoloft) 50 mg PO HS [facility] Last Admin: 05/25/17 21:48 Dose: 50 mg Warfarin Sodium (Coumadin) 4 mg PO 1800 [facility] PRN Reason: Protocol Zolpidem Tartrate (Ambien) 5 mg PO HS PRN; Protocol PRN Reason: Insomnia Last Admin: 05/26/17 01:21 Dose: 5 mg - Labs Labs: 05/24/17 05:30 05/24/17 05:30 PT 23.1 SECONDS (9.4-12.5) H 05/26/17 07:30 INR 2.07 (0.93-1.08) H 05/26/17 07:30 - Constitutional Appears: Non-toxic, No Acute Distress, Chronically Ill - Head Exam Head Exam: ATRAUMATIC, NORMOCEPHALIC - Eye Exam Eye Exam: EOMI, PERRL Pupil Exam: NORMAL ACCOMODATION, PERRL - ENT Exam ENT Exam: Mucous Membranes Moist, Normal External Ear Exam, TM's Normal Bilaterally - Neck Exam Neck Exam: Full ROM, Normal Inspection - Respiratory Exam Respiratory Exam: Clear to Ausculation Bilateral, NORMAL BREATHING PATTERN. absent: Rales, Rhonchi, Wheezes - Cardiovascular Exam Cardiovascular Exam: REGULAR RHYTHM, RRR, +S1, +S2 - GI/Abdominal Exam GI & Abdominal Exam: Soft, Normal Bowel Sounds. absent: Distended, Tenderness - Extremities Exam Extremities Exam: Full ROM, Normal Inspection - Neurological Exam Neurological Exam: Alert, Awake, CN II-XII Intact, Oriented x3 - Psychiatric Exam Psychiatric exam: Normal Affect, Normal Mood - Skin Skin Exam: Intact, Normal Color Assessment and Plan - Assessment and Plan (Free Text) Assessment: 72 yo female with original admission for suicide attempt by slitting wrists. She was found to have a UTI again with ESBL + E. Coli. The patient had an admission here less than a month ago for similar infection. The patient was treated with 7 days of Meropenem at that time. Currently she is on Nitrofuratoin. Will restart Meropenem with Nitrofuratoin for treatment. The patient's cultures on the last hospitalization had shown clearance of the infection prior to discharge. Completed Meropenem. The patient will continue on PO Nitrofuratoin for prolonged treatment while on Psych floor. Will give 10- 14 day course. Currently in psych for suicide attempt. Patient depressed. Appears irritable. Thank you for allowing me to participate in the care of the patient, we will follow with you.
[2017-05-26] MEDS: Clotrimazole/Betamethasone Cream(15 gm) TOP SCH (19:46)
[2017-05-26] MEDS: Ammonium Lactate 12% Cream (140 g) TOP SCH (19:48)
[2017-05-26] MEDS: diltiaZEM 180 mg/24 Hours CD Cap PO SCH (21:36)
[2017-05-26] MEDS: Insulin Detemir 100 units/ml Vial (Levemir) SC SCH (22:43)
--- NOTE | 2017-05-26 23:23 | PN ---
DATE: SUBJECTIVE: The patient is a 72-year-old female. The patient is seen and examined at the bedside, looking comfortable. Sitting in the activity room, getting frustrated because her sister refused to take her home; because of her family attitude, she do not have place to go anywhere, now thinking about group home, seen by [facility]. No nausea, vomiting, or diarrhea. No hematuria. No hematochezia. No hematemesis. No headache or dizziness. No chest pain or palpitation. PHYSICAL EXAMINATION: VITAL SIGNS: Temperature 97.2, pulse 91, blood pressure 80/49. HEENT: Head normocephalic and atraumatic. Eyes; PERRLA. Extraocular muscles intact. Conjunctivae clear. Nose patent. Mucous membranes moist. NECK: Supple. No carotid bruits, JVD, or thyromegaly. CHEST: Bilaterally symmetrical. HEART: S1 and S2 positive. LUNGS: Clear to auscultation. ABDOMEN: Soft. Bowel sounds present. No organomegaly. EXTREMITIES: No edema. No cyanosis. NEUROLOGIC: The patient is awake and alert. Moving all 4 extremities. No focal deficits. MEDICATIONS: Ambien, hydralazine, aspirin, Cardizem, loratadine, docusate, Carvedilol, Coumadin, DuoNeb, Effient, ferrous sulfate, glipizide, Cardizem, potassium chloride, insulin, and nystatin powder. LABORATORY DATA: We do not have recent labs today, but I reviewed old labs. Glucose is 175, 118, and 164. INR is 2.07. ASSESSMENT AND PLAN: Ms. Mallorie Francis is a 72-year-old lady with coronary artery disease, neck fusion, triple bypass, chronic obstructive pulmonary disease, implantable cardioverter-defibrillator pacemaker placement, ileostomy due to cancer, renal insufficiency, reverse ileostomy, irritable bowel syndrome, depression, suicidal attempts x2, has dry cracked heels, seen by the Podiatry. Gastrointestinal and deep vein thrombosis prophylaxis. Discussion done with the patient. Continue same Coumadin. No overnight episode happen. The patient is stable. We will follow up. Tanisha Lebron MD [facility] # [id number] [place]
[2017-05-27] MEDS: Albuterol-Ipratrop 3 mg / 0.5 (3 ml) UD IH SCH ×4 (02:16→20:51)
--- NOTE | 2017-05-27 02:46 | PN ---
PULMONARY PROGRESS NOTE DATE: 05/26/2017 REFERRING PHYSICIAN: Beti Hackett MD SUBJECTIVE: She is ambulating on the hallways, feels better. No headache. No rhinitis. No nausea or vomiting. No diarrhea. No leg pain or leg swelling. Presently, refused any suicidal ideations. OBJECTIVE: GENERAL: In no acute distress. VITAL SIGNS: Temperature is 98, heart rate is 81, respiratory rate is 20 and blood pressure is 115/54. HEENT: Moist mucous membranes. Crowded airway. Mallampati score is 4. NECK: Supple. No JVD. LUNGS: Has a fair airflow with few rhonchi. HEART: S1 and S2. ABDOMEN: Soft and nontender. No organomegaly. EXTREMITIES: No edema. NEUROLOGICAL: Awake and alert. Follows simple commands. Left wrist scar is healing well. MEDICATIONS: She is on Ambien 5 mg at bedtime p.r.n., aspirin 81 mg daily, Cardizem CD 180 mg daily, Claritin 10 mg daily, Colace 100 mg twice a day, Coreg 25 mg twice a day, Coumadin 4 mg given today, DuoNeb q. 6 hours, Effient 10 mg daily, ferrous sulfate 325 mg daily, glipizide 5 mg a.c., insulin coverage, potassium 10 mEq daily, lactic acid at affected area twice a day, digoxin 0.25 mg daily, Levemir 12 units subq at bedtime, Lidoderm patch to affected area, Lipitor 20 mg daily, Lotrisone at affected area twice a day, magnesium oxide 400 mg daily, Pepcid 40 mg daily, Robitussin 100 mg q. 4 hours p.r.n., Singulair 10 mg daily, Tylenol p.r.n., Zestril 20 mg at bedtime and Zoloft 50 mg at bedside. LABORATORY DATA: Shows blood sugar this morning 81. IMPRESSION AND PLAN: History of suicidal ideation, depression, myocardial infarction, coronary artery disease, history of coronary stent, cardiomyopathy, chronic lung disease, obstructive lung disease, atrial fibrillation, hypertension, diabetes, depression. Pulmonary point of view, she is doing well. 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 Follow blood pressure closely. Psychiatry followup. Thank you and we will follow with you. Rosina Gabriel MD
[2017-05-27 07:55] LABS: INR 1.83 (0.93-1.08)
[2017-05-27] MEDS: Insulin Lispro (humaLOG) LOW Coverage SC SCH ×4 (08:18→21:53)
[2017-05-27] MEDS: Lidocaine 5% Patch TD SCH (08:40)
[2017-05-27] MEDS: Magnesium Oxide 400 mg Tab UD PO SCH (08:44)
[2017-05-27] MEDS: TRADJENTA 5 MG PO SCH (08:47)
[2017-05-27] MEDS: Ammonium Lactate 12% Cream (140 g) TOP SCH ×2 (08:48→17:36)
[2017-05-27] MEDS: BIOTIN PO SCH (08:48)
[2017-05-27] MEDS: Potassium Chloride 10 mEq ER Tab PO SCH (08:48)
[2017-05-27] MEDS: Nystatin 100,000 Units/gm Topical Pow(15 gm) TOP SCH ×2 (08:49→17:37)
[2017-05-27] MEDS: Clotrimazole/Betamethasone Cream(15 gm) TOP SCH ×2 (08:49→17:36)
--- NOTE | 2017-05-27 09:50 | CT ---
PROCEDURE: CT HEAD WITHOUT CONTRAST. HISTORY: memory loss COMPARISON: 05/13/2017 TECHNIQUE: Axial computed tomography images were obtained through the head/brain without intravenous contrast. Radiation dose: Total exam DLP = 629 mGy-cm. This CT exam was performed using one or more of the following dose reduction techniques: Automated exposure control, adjustment of the mA and/or kV according to patient size, and/or use of iterative reconstruction technique. FINDINGS: HEMORRHAGE: No intracranial hemorrhage. BRAIN: No mass effect or edema. No atrophy or chronic microvascular ischemic changes. VENTRICLES: Unremarkable. No hydrocephalus. CALVARIUM: Unremarkable. PARANASAL SINUSES: Unremarkable as visualized. No significant inflammatory changes. MASTOID AIR CELLS: Unremarkable as visualized. No inflammatory changes. OTHER FINDINGS: None. IMPRESSION: No acute findings
--- NOTE | 2017-05-27 12:08 | CP.PCM.PN ---
Subjective - Date & Time of Evaluation Date of Evaluation: 05/27/17 Time of Evaluation: 11:30 - Subjective Subjective: Infectious Disease Follow Up: May 27, 2017 72 yo female with extensive past medical history that includes coronary artery disease, cardiomyopathy, pulmonary hypertension, atrial fibrillation, chronic obstructive lung disease, diabetes mellitus, and multiple attempts at suicide. The patient was initially admitted for a suicide attempt where she cut her wrist after having problems with her family on Thanksgiving. She is currently on one-to-one evaluation. During this hospitalization, the patient was found to have ESBL+ E. coli in the urine. The patient was on the medical floor in early April 2017 with a finding of ESBL+ E. Coli in the urine as well. She received Meropenem for treatment at this time. Currently on PO Nitrofuratoin for treatment. Completed 3 days of Meropenem for treatment. Monitor renal function. Patient is irritable. Repeat urine culture sent which showed no growth. Suicide attempt - patient transferred to psych floor. Objective - Vital Signs/Intake and Output Vital Signs (last 24 hours): Temp Pulse Resp BP Pulse Ox 98.1 F 90 22 122/57 L 05/27/17 06:53 05/27/17 08:43 05/27/17 06:53 05/27/17 08:43 - Medications Medications: Current Medications Acetaminophen (Tylenol 325mg Tab) 650 mg PO Q6H PRN PRN Reason: Pain, moderate (4-7) Last Admin: 05/27/17 03:46 Dose: 650 mg Albuterol/Ipratropium (Duoneb 3 Mg/0.5 Mg (3 Ml) Ud) 3 ml IH [id number] [facility] Last Admin: 05/27/17 07:54 Dose: 3 ml Aspirin (Aspirin Chewable) 81 mg PO DAILY [facility] Last Admin: 05/27/17 08:43 Dose: 81 mg Atorvastatin Calcium (Lipitor) 20 mg PO HS [facility] Last Admin: 05/26/17 21:36 Dose: 20 mg Betamethasone/Clotrimazole (Lotrisone) 0 gm TOP BID [facility] Last Admin: 05/27/17 08:49 Dose: 1 oin Carvedilol (Coreg) 25 mg PO BID [facility] Last Admin: 05/27/17 08:43 Dose: 25 mg Digoxin (Lanoxin) 0.25 mg PO 1400 [facility] Last Admin: 05/26/17 14:28 Dose: 0.25 mg Diltiazem HCl (Cardizem Cd) 180 mg PO HS [facility] Last Admin: 05/26/17 21:36 Dose: 180 mg Docusate Sodium (Colace) 100 mg PO BID [facility] Last Admin: 05/27/17 08:43 Dose: 100 mg Famotidine (Pepcid) 40 mg PO DAILY [facility] Last Admin: 05/27/17 08:43 Dose: 40 mg Ferrous Sulfate (Feosol) 324 mg PO DAILY [facility] Last Admin: 05/27/17 08:44 Dose: 324 mg Glipizide (Glucotrol) 5 mg PO ACB [facility] Last Admin: 05/27/17 08:47 Dose: 5 mg Guaifenesin (Robitussin) 100 mg PO Q4H PRN PRN Reason: Cough Home Med (Home Med) 1 unit PO DAILY [facility] Last Admin: 05/27/17 08:48 Dose: Not Given Home Med (Home Med) 1 unit PO DAILY [facility] Last Admin: 05/27/17 08:47 Dose: Not Given Hydralazine HCl (Apresoline) 25 mg PO TID [facility] Last Admin: 05/27/17 08:42 Dose: 25 mg Insulin Detemir (Levemir) 12 unit SC HS [facility] Last Admin: 05/26/17 22:43 Dose: 12 unit Insulin Human Lispro (Humalog Low) 0 units SC ACHS [facility] PRN Reason: Protocol Last Admin: 05/27/17 08:18 Dose: Not Given Lactic Acid (Lac-Hydrin 12% Cream (140 G)) 0 ea TOP BID [facility] Last Admin: 05/27/17 08:48 Dose: 1 oin Lidocaine (Lidoderm) 1 ea TD DAILY [facility] Last Admin: 05/27/17 08:40 Dose: 1 ea Lisinopril (Zestril) 20 mg PO HS [facility] Last Admin: 05/26/17 21:36 Dose: 20 mg Loratadine (Claritin) 10 mg PO DAILY [facility] Last Admin: 05/27/17 08:43 Dose: 10 mg Magnesium Oxide (Mag-Ox) 400 mg PO DAILY [facility] Last Admin: 05/27/17 08:44 Dose: 400 mg Montelukast Sodium (Singulair) 10 mg PO DAILY [facility] Last Admin: 05/27/17 08:43 Dose: 10 mg Nystatin (Nystop Topical Powder) 1 gm TOP BID [facility] Last Admin: 05/27/17 08:49 Dose: 1 gm Potassium Chloride (Klor-Con 10) 10 meq PO BRK [facility] Last Admin: 05/27/17 08:48 Dose: 10 meq Prasugrel (Effient) 10 mg PO DAILY [facility] Last Admin: 05/27/17 08:43 Dose: 10 mg Sertraline HCl (Zoloft) 50 mg PO HS [facility] Last Admin: 05/26/17 21:36 Dose: 50 mg Warfarin Sodium (Coumadin) 4 mg PO 1800 [facility] PRN Reason: Protocol Last Admin: 05/26/17 19:43 Dose: 4 mg Zolpidem Tartrate (Ambien) 5 mg PO HS PRN; Protocol PRN Reason: Insomnia Last Admin: 05/26/17 22:45 Dose: 5 mg - Labs Labs: 05/24/17 05:30 05/24/17 05:30 PT 20.4 SECONDS (9.4-12.5) H 05/27/17 07:00 INR 1.83 (0.93-1.08) H 05/27/17 07:00 - Constitutional Appears: Non-toxic, No Acute Distress, Chronically Ill - Head Exam Head Exam: ATRAUMATIC, NORMOCEPHALIC - Eye Exam Eye Exam: EOMI, PERRL Pupil Exam: NORMAL ACCOMODATION, PERRL - ENT Exam ENT Exam: Mucous Membranes Moist, Normal External Ear Exam, TM's Normal Bilaterally - Neck Exam Neck Exam: Full ROM, Normal Inspection - Respiratory Exam Respiratory Exam: Clear to Ausculation Bilateral, NORMAL BREATHING PATTERN. absent: Rales, Rhonchi, Wheezes - Cardiovascular Exam Cardiovascular Exam: REGULAR RHYTHM, RRR, +S1, +S2 - GI/Abdominal Exam GI & Abdominal Exam: Soft, Normal Bowel Sounds. absent: Distended, Tenderness - Extremities Exam Extremities Exam: Full ROM, Normal Inspection - Neurological Exam Neurological Exam: Alert, Awake, CN II-XII Intact, Oriented x3 - Psychiatric Exam Additional comments: irritable - Skin Skin Exam: Intact, Normal Color Assessment and Plan - Assessment and Plan (Free Text) Assessment: 72 yo female with original admission for suicide attempt by slitting wrists. She was found to have a UTI again with ESBL + E. Coli. The patient had an admission here less than a month ago for similar infection. The patient was treated with 7 days of Meropenem at that time. Currently she is on Nitrofuratoin. Will restart Meropenem with Nitrofuratoin for treatment. The patient's cultures on the last hospitalization had shown clearance of the infection prior to discharge. Completed Meropenem. The patient will continue on PO Nitrofuratoin for prolonged treatment while on Psych floor. Will give 10- 14 day course of Nitrofuratoin in total. Currently in psych for suicide attempt. Patient depressed. Appears irritable. Thank you for allowing me to participate in the care of the patient, we will follow with you.
[2017-05-27] MEDS: Digoxin 250 mcg (0.25 mg) Tab PO SCH (13:31)
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
--- NOTE | 2017-05-27 20:56 | PCM.PYCHPN ---
Psychiatric Progress Note - Psychiatric Progress Note Patient seen today, length of contact: 20 min Patient Chief Complaint: "I don't know what happened, why she says I can't stay with her" Problems Identified/Issues Discussed: Patient had been considered for discharge yesterday, but her plan for living with her sister had fallen through. When the social sciences professor was able to reach her sister for collateral, her sister indicates that client has had many personality changes in the last 2 years. She indicates there has been more irritability as well as behavioral changes, specifically less attention to hygiene to the point of lying in sheets that she has defecated in without changing them. This information was discussed with Dr Becerra and orders were given for patient to stay and neuro consult per Dr Stapleton. Patient today is bewildered as to this information, suggests that maybe her sister had been drinking "as she is a drunk". She denies any symptoms of depression, just great disappointment that her sister "did this" and now will not speak to her. She refuses an increase in her Zoloft. Medical Problems: Possible neurological issue, personality changes over last 2 years, changes in self care Medication Change: No ( ) Medical Record Reviewed: Yes Mental Status Examination - Cognitive Function Orientation: Person, Place, Situation Attention: WNL - Mood Mood: Other ( "very irritable, I am so tired of this") - Affect Affect: Constricted, Other ( labile) - Speech Speech: Appropriate - Formal Thought Process Formal Thought Process: No Impairment - Suicidal Ideation Suicidal Ideation: No - Homicidal Ideation Homicidal Ideation: No
[2017-05-27] MEDS: diltiaZEM 180 mg/24 Hours CD Cap PO SCH (21:16)
[2017-05-27] MEDS: Insulin Detemir 100 units/ml Vial (Levemir) SC SCH (21:53)
--- NOTE | 2017-05-27 23:31 | PN ---
PULMONARY PROGRESS NOTE DATE: 05/27/2017 REFERRING PHYSICIAN: Beti Hackett MD SUBJECTIVE: She is walking in the hallway with the help of walker, frustrated, could not find any place to go yet. No headache. No rhinitis. No nausea. No vomiting. No diarrhea. No leg pain or leg swelling. PHYSICAL EXAMINATION: GENERAL: In no acute distress. VITAL SIGNS: Temperature is 98, heart rate is 81, respiratory rate is 20 and blood pressure is 131/67. HEENT: Moist mucous membranes. No ulcer or thrush noted. NECK: Supple. No JVD. LUNGS: Has a fair airflow with few rhonchi. HEART: S1 and S2. ABDOMEN: Soft and nontender. No organomegaly. EXTREMITIES: There is no edema. NEUROLOGICAL: Awake and alert. Follows simple commands. MEDICATIONS: She is on Ambien 5 mg at bedtime p.r.n., hydralazine 25 mg three times a day, aspirin 81 mg daily, Cardizem 180 mg at bedtime, Claritin 10 mg daily, Colace 100 mg twice a day, Coreg 25 mg twice a day, Coumadin 4 mg daily, albuterol/Atrovent nebulizer q. 6 hours, Effient 10 mg daily, ferrous sulfate 325 mg daily, glipizide 5 mg a.c., insulin coverage, potassium 10 mEq daily, lactic acid topical area, digoxin 0.25 mg daily, Levemir 12 units subcu at bedtime, lidocaine patch daily, Lipitor 20 mg at bedtime, Lotrisone cream to affected area twice a day, magnesium oxide 400 mg daily, Pepcid 40 mg daily, Robitussin 100 mg q. 4 hours p.r.n., Singulair 10 mg daily, Tylenol p.r.n., Zestril 20 mg at bedtime and Zoloft 50 mg at bedside. LABORATORY DATA: Reviewed. Blood sugar is 90 today. INR 1.83. IMPRESSION AND PLAN: History of suicidal attempt, depression, myocardial infarction, coronary artery disease, history of coronary stent, cardiomyopathy, chronic lung disease, atrial fibrillation, hypertension, diabetes, depression, may have sleep apnea syndrome. Pulmonary point of view doing okay. Continue bronchodilator, fall precaution, diuretics, beta-joshua, anticoagulation. travel services professional followup. Thank you and we will follow with you. Rosina Gabriel MD [facility] # [id number]
[2017-05-28] MEDS: Albuterol-Ipratrop 3 mg / 0.5 (3 ml) UD IH SCH ×4 (01:34→22:45)
[2017-05-28 07:18] VITALS: RESP 20
[2017-05-28] MEDS: Insulin Lispro (humaLOG) LOW Coverage SC SCH ×4 (07:30→22:06)
[2017-05-28 08:32] LABS: INR 1.83 (0.93-1.08)
[2017-05-28] MEDS: Lidocaine 5% Patch TD SCH (09:02)
[2017-05-28] MEDS: Clotrimazole/Betamethasone Cream(15 gm) TOP SCH ×2 (09:03→17:45)
[2017-05-28] MEDS: Potassium Chloride 10 mEq ER Tab PO SCH (09:06)
[2017-05-28] MEDS: TRADJENTA 5 MG PO SCH (09:11)
[2017-05-28] MEDS: BIOTIN PO SCH (09:11)
[2017-05-28] MEDS: Ammonium Lactate 12% Cream (140 g) TOP SCH ×2 (09:12→17:45)
[2017-05-28] MEDS: Magnesium Oxide 400 mg Tab UD PO SCH (09:13)
[2017-05-28] MEDS: Nystatin 100,000 Units/gm Topical Pow(15 gm) TOP SCH ×2 (09:14→17:45)
[2017-05-28] MEDS: Digoxin 250 mcg (0.25 mg) Tab PO SCH (14:25)
[2017-05-28 14:26] VITALS: PULSE 58
--- NOTE | 2017-05-28 18:25 | PN ---
DATE: SUBJECTIVE: The patient is a 72-year-old female. The patient is seen and examined at the bedside and looking comfortable. Sitting in the activity room. No nausea, vomiting, or diarrhea. No hematochezia. No swelling of the legs. No chest pain. No palpitations. No headache. No dizziness. PHYSICAL EXAMINATION: VITAL SIGNS: Temperature is 97.8, pulse is 69, blood pressure is 115/48, and respiratory rate is 20. HEENT: Head is normocephalic and atraumatic. Eyes; PERRLA. Extraocular muscles are intact. Conjunctivae clear. Nose patent. Mucous membranes moist. NECK: Supple. No carotid bruits, JVD, or thyromegaly. CHEST: Bilaterally symmetrical. HEART: S1 and S2 positive. LUNGS: Clear to auscultation. ABDOMEN: Soft. Bowel sounds present. No organomegaly. EXTREMITIES: No edema. No cyanosis. NEUROLOGIC: The patient is awake and alert. Moving all 4 extremities. No focal deficits. MEDICATIONS: Ambien, hydralazine, aspirin, Cardizem, loratadine, docusate, carvedilol, Coumadin, Effient, ferrous sulfate, glipizide, insulin, and potassium. LABORATORY DATA: We do not have recent labs today, but I reviewed old labs. INR is 1.83 and PT is 20.4. ASSESSMENT AND PLAN: Ms. Mallorie Francis is a 72-year-old female with history of suicidal attempts x2, depression, myocardial infarction, coronary artery disease, coronary artery stent, cardiomyopathy, chronic lung disease, atrial fibrillation, hypertension, diabetes mellitus, and sleep apnea syndrome. Plan is to continue bronchodilator, diuretics, Coumadin, and beta-blockers. Social workers are working to get placement for her, seen by Dr. Gabriel and psych team and Dr. Cohn, Infectious Disease. We will follow up. Tanisha Lebron MD [facility]
--- NOTE | 2017-05-28 18:53 | PN ---
PULMONARY PROGRESS NOTE DATE: 05/28/2017 REFERRING PHYSICIAN: Dr. Bang. SUBJECTIVE: She is out of bed to chair. Night was unremarkable. Slept well. No headache. No rhinitis. No nausea. No vomiting or diarrhea. No leg pain or leg swelling. OBJECTIVE GENERAL: In no acute distress. VITAL SIGNS: Temperature 98, heart rate is 85, respiratory rate is 20, blood pressure is 115/48. HEENT: Moist mucous membrane. No ulcer or thrush noted. NECK: Supple. No JVD. LUNGS: Has a fair airflow with few rhonchi. HEART: S1 and S2. ABDOMEN: Soft and nontender. No organomegaly. EXTREMITIES: There is no edema. NEUROLOGICAL: Awake and alert. Follows simple commands. MEDICATIONS: She is on Ambien 5 mg at bedtime p.r.n., hydralazine 25 mg three times a day, aspirin 81 mg daily, Cardizem CD 180 mg daily, Claritin 10 mg daily, Colace 100 mg twice a day, Coreg 25 mg twice a day, Coumadin 4 mg daily, DuoNeb q. 6 hours, Effient 10 mg daily, ferrous sulfate 324 mg daily, glipizide 5 mg a.c.b., potassium 10 mEq daily, digoxin 0.25 mg daily, Levemir 12 units subcu at bedtime, lidocaine patch at effected area, Lipitor 20 mg daily, Lotrisone cream to affected area twice a day, magnesium oxide 400 mg daily, Pepcid 40 mg daily, Guanfacine 100 mg q. 4 hours p.r.n., Singulare 10 mg daily, Tylenol p.r.n., Zestril 20 mg at bedtime and Zoloft 50 mg at bedtime. LABORATORY DATA: Shows INR today 1.83, glucose 124. IMPRESSION AND PLAN: Suicidal attempt, depression, myocardial infarction, coronary artery disease, history of coronary stent, cardiomyopathy, chronic obstructive lung disease, atrial fibrillation, diabetes, depression, may have sleep apnea syndrome. Pulmonary point of view, she is doing okay. Continue bronchodilator, anticoagulation. INR in the morning. Fall precautions. Psychiatry followup. She has a placement problem. She is homeless at present time. Thank you and we will follow with you. Rosina Gabriel MD [facility] # [id number]
[2017-05-28] MEDS: diltiaZEM 180 mg/24 Hours CD Cap PO SCH (21:43)
[2017-05-28] MEDS: Insulin Detemir 100 units/ml Vial (Levemir) SC SCH (22:03)
--- NOTE | 2017-05-28 22:17 | CP.PCM.PN ---
Subjective - Date & Time of Evaluation Date of Evaluation: 05/28/17 Time of Evaluation: 21:00 - Subjective Subjective: Infectious Disease Follow Up: May 28, 2017 72 yo female with extensive past medical history that includes coronary artery disease, cardiomyopathy, pulmonary hypertension, atrial fibrillation, chronic obstructive lung disease, diabetes mellitus, and multiple attempts at suicide. The patient was initially admitted for a suicide attempt where she cut her wrist after having problems with her family on Thanksgiving. She is currently on one-to-one evaluation. During this hospitalization, the patient was found to have ESBL+ E. coli in the urine. The patient was on the medical floor in early April 2017 with a finding of ESBL+ E. Coli in the urine as well. She received Meropenem for treatment at this time. Currently on PO Nitrofuratoin for treatment. Completed 3 days of Meropenem for treatment. Monitor renal function. Patient is irritable. Repeat urine culture sent which showed no growth. Suicide attempt - patient currently on psych floor. Objective - Vital Signs/Intake and Output Vital Signs (last 24 hours): Temp Pulse Resp BP Pulse Ox 97.8 F 75 20 108/59 L 05/28/17 07:17 05/28/17 21:45 05/28/17 07:17 05/28/17 21:45 - Medications Medications: Current Medications Acetaminophen (Tylenol 325mg Tab) 650 mg PO Q6H PRN PRN Reason: Pain, moderate (4-7) Last Admin: 05/28/17 13:02 Dose: 650 mg Albuterol/Ipratropium (Duoneb 3 Mg/0.5 Mg (3 Ml) Ud) 3 ml IH [id number] [facility] Last Admin: 05/28/17 13:53 Dose: 3 ml Aspirin (Aspirin Chewable) 81 mg PO DAILY [facility] Last Admin: 05/28/17 09:06 Dose: 81 mg Atorvastatin Calcium (Lipitor) 20 mg PO HS [facility] Last Admin: 05/28/17 21:45 Dose: 20 mg Betamethasone/Clotrimazole (Lotrisone) 0 gm TOP BID [facility] Last Admin: 05/28/17 17:45 Dose: 1 oin Carvedilol (Coreg) 25 mg PO BID [facility] Last Admin: 05/28/17 17:46 Dose: 25 mg Digoxin (Lanoxin) 0.25 mg PO 1400 [facility] Last Admin: 05/28/17 14:25 Dose: Not Given Diltiazem HCl (Cardizem Cd) 180 mg PO HS [facility] Last Admin: 05/28/17 21:43 Dose: 180 mg Docusate Sodium (Colace) 100 mg PO BID [facility] Last Admin: 05/28/17 17:47 Dose: 100 mg Famotidine (Pepcid) 40 mg PO DAILY [facility] Last Admin: 05/28/17 09:08 Dose: 40 mg Ferrous Sulfate (Feosol) 324 mg PO DAILY [facility] Last Admin: 05/28/17 09:07 Dose: 324 mg Glipizide (Glucotrol) 5 mg PO ACB [facility] Last Admin: 05/28/17 09:08 Dose: 5 mg Guaifenesin (Robitussin) 100 mg PO Q4H PRN PRN Reason: Cough Home Med (Home Med) 1 unit PO DAILY [facility] Last Admin: 05/28/17 09:11 Dose: Not Given Home Med (Home Med) 1 unit PO DAILY [facility] Last Admin: 05/28/17 09:11 Dose: Not Given Hydralazine HCl (Apresoline) 25 mg PO TID [facility] Last Admin: 05/28/17 17:41 Dose: 25 mg Insulin Detemir (Levemir) 12 unit SC HS [facility] Last Admin: 05/27/17 21:53 Dose: 12 unit Insulin Human Lispro (Humalog Low) 0 units SC ACHS [facility] PRN Reason: Protocol Last Admin: 05/28/17 17:16 Dose: Not Given Lactic Acid (Lac-Hydrin 12% Cream (140 G)) 0 ea TOP BID [facility] Last Admin: 05/28/17 17:45 Dose: 1 oin Lidocaine (Lidoderm) 1 ea TD DAILY [facility] Last Admin: 05/28/17 09:02 Dose: 1 ea Lisinopril (Zestril) 20 mg PO HS [facility] Last Admin: 05/28/17 21:45 Dose: 20 mg Loratadine (Claritin) 10 mg PO DAILY [facility] Last Admin: 05/28/17 09:08 Dose: 10 mg Magnesium Oxide (Mag-Ox) 400 mg PO DAILY [facility] Last Admin: 05/28/17 09:13 Dose: 400 mg Montelukast Sodium (Singulair) 10 mg PO DAILY [facility] Last Admin: 05/28/17 09:03 Dose: 10 mg Nystatin (Nystop Topical Powder) 1 gm TOP BID [facility] Last Admin: 05/28/17 17:45 Dose: 1 gm Potassium Chloride (Klor-Con 10) 10 meq PO BRK [facility] Last Admin: 05/28/17 09:06 Dose: 10 meq Prasugrel (Effient) 10 mg PO DAILY [facility] Last Admin: 05/28/17 09:07 Dose: 10 mg Sertraline HCl (Zoloft) 50 mg PO HS [facility] Last Admin: 05/28/17 21:46 Dose: 50 mg Warfarin Sodium (Coumadin) 4 mg PO 1800 ZAIRE PRN Reason: Protocol Last Admin: 05/28/17 17:44 Dose: 4 mg Zolpidem Tartrate (Ambien) 5 mg PO HS PRN; Protocol PRN Reason: Insomnia Last Admin: 05/28/17 21:42 Dose: 5 mg - Labs Labs: 05/24/17 05:30 05/24/17 05:30 PT 20.4 SECONDS (9.4-12.5) H 05/28/17 07:30 INR 1.83 (0.93-1.08) H 05/28/17 07:30 - Constitutional Appears: Non-toxic, No Acute Distress, Chronically Ill - Head Exam Head Exam: ATRAUMATIC, NORMOCEPHALIC - Eye Exam Eye Exam: EOMI, PERRL Pupil Exam: NORMAL ACCOMODATION, PERRL - ENT Exam ENT Exam: Mucous Membranes Moist, Normal External Ear Exam, TM's Normal Bilaterally - Neck Exam Neck Exam: Full ROM, Normal Inspection - Respiratory Exam Respiratory Exam: Clear to Ausculation Bilateral, NORMAL BREATHING PATTERN. absent: Rales, Rhonchi, Wheezes - Cardiovascular Exam Cardiovascular Exam: REGULAR RHYTHM, RRR, +S1, +S2 - GI/Abdominal Exam GI & Abdominal Exam: Soft, Normal Bowel Sounds. absent: Distended, Tenderness - Extremities Exam Extremities Exam: Full ROM, Normal Inspection - Neurological Exam Neurological Exam: Alert, Awake, CN II-XII Intact, Oriented x3 - Psychiatric Exam Additional comments: irritable. - Skin Skin Exam: Intact, Normal Color Assessment and Plan - Assessment and Plan (Free Text) Assessment: 72 yo female with original admission for suicide attempt by slitting wrists. She was found to have a UTI again with ESBL + E. Coli. The patient had an admission here less than a month ago for similar infection. The patient was treated with 7 days of Meropenem at that time. Currently she is on Nitrofuratoin. Will restart Meropenem with Nitrofuratoin for treatment. The patient's cultures on the last hospitalization had shown clearance of the infection prior to discharge. Completed Meropenem. The patient will continue on PO Nitrofuratoin for prolonged treatment while on Psych floor. Will give 10- 14 day course of Nitrofuratoin in total. Currently in psych for suicide attempt. Patient depressed. Remains irritable. Thank you for allowing me to participate in the care of the patient, we will follow with you.
--- NOTE | 2017-05-28 23:05 | PCM.PYCHPN ---
Psychiatric Progress Note - Psychiatric Progress Note Patient seen today, length of contact: 20 min Patient Chief Complaint: "I can be happy in a room" Problems Identified/Issues Discussed: Patient continues to focus on discharge. She is taking part in unit routine, is social, and attends groups. She is irritable at times, indicates she is frustrated but not depressed. Continues to indicate that she is not suicidal "I just want to get on with my life". Medical Problems: Possible neurological issue, personality changes over last 2 years, changes in self care Medication Change: No ( ) Medical Record Reviewed: Yes Mental Status Examination - Cognitive Function Orientation: Person, Place, Situation Attention: WNL - Mood Mood: Other ( "very irritable, I am so tired of this") - Affect Affect: Constricted, Other ( labile) - Speech Speech: Appropriate - Formal Thought Process Formal Thought Process: No Impairment - Suicidal Ideation Suicidal Ideation: No - Homicidal Ideation Homicidal Ideation: No
[2017-05-29] MEDS: Albuterol-Ipratrop 3 mg / 0.5 (3 ml) UD IH SCH ×3 (01:18→13:11)
[2017-05-29 07:09] LABS: HEMATOCRIT 31.8 % (36.0-48.0); MEAN CELL VOLUME 91.4 fl (80.0-105.0); MEAN CORPUSCULAR HEMOGLOBIN 29.9 pg (25.0-35.0); MEAN CORPUSCULAR HGB CONC 32.7 g/dl (31.0-37.0); MEAN PLATELET VOLUME 9.2 fl (7.0-11.0); RED CELL DISTRIBUTION WIDTH 16.2 % (11.5-14.5); WHITE BLOOD COUNT 8.1 10^3/ul (4.5-11.0)
[2017-05-29] MEDS: Insulin Lispro (humaLOG) LOW Coverage SC SCH (07:30)
[2017-05-29 07:32] VITALS: TEMP 98.4
[2017-05-29 07:34] LABS: INR 1.79 (0.93-1.08)
[2017-05-29 07:45] LABS: BLOOD UREA NITROGEN 22 mg/dL (7-21); CALCIUM 9.8 mg/dL (8.4-10.5); CARBON DIOXIDE 21 mmol/L (21-33); CHLORIDE 105 mmol/L (98-107); GFR AFRICAN-AMERICAN > 60; GLUCOSE,RANDOM 127 mg/dL (70-110); POTASSIUM 5.2 mmol/L (3.6-5.0); SODIUM 140 mmol/L (132-148)
[2017-05-29] MEDS: Magnesium Oxide 400 mg Tab UD PO SCH (10:07)
[2017-05-29] MEDS: Nystatin 100,000 Units/gm Topical Pow(15 gm) TOP SCH (10:10)
[2017-05-29] MEDS: Potassium Chloride 10 mEq ER Tab PO SCH (10:10)
[2017-05-29] MEDS: Lidocaine 5% Patch TD SCH (10:11)
[2017-05-29] MEDS: Clotrimazole/Betamethasone Cream(15 gm) TOP SCH (10:11)
[2017-05-29] MEDS: TRADJENTA 5 MG PO SCH (10:19)
[2017-05-29] MEDS: BIOTIN PO SCH (10:20)
[2017-05-29] MEDS: Ammonium Lactate 12% Cream (140 g) TOP SCH (10:20)
[2017-05-29 11:27] VITALS: BP 132/68; PULSE 97
--- NOTE | 2017-05-29 17:30 | PCM.PYCHDC ---
Mental Status Examination - Mental Status Examination Orientation: Person, Place, Situation, Time Memory: Intact Mood: Neutral Affect: Broad Speech: Appropriate Attention: WNL Concentration: WNL Association: WNL Fund of Knowledge: WNL Formal Thought Process: No Impairment Description of patient's judgement and insight: Patient denies being suicidal or homicidal, is in no imminent danger of hurting herself or others. Psychotic Thoughts and Behaviors: Patient denies the presence of hallucinations, delusions, or paranoia. Suicidal Ideation: No Current Homicidal Ideation?: No Discharge Summary - Discharge Note Laboratory Data: Abnormal Lab Results 05/28/17 05/29/17 05/29/17 21:10 06:50 06:50 WBC 8.1 D RBC 3.48 L Hgb 10.4 L Hct 31.8 L MCV 91.4 MCH 29.9 MCHC 32.7 RDW 16.2 H Plt Count 423 MPV 9.2 PT 19.9 H INR 1.79 H Sodium Potassium Chloride Carbon Dioxide Anion Gap BUN Creatinine Est GFR ( Amer) Est GFR (Non-Af Amer) POC Glucose (mg/dL) 244 H Random Glucose Calcium 05/29/17 05/29/17 05/29/17 06:50 07:34 11:18 WBC RBC Hgb Hct MCV MCH MCHC RDW Plt Count MPV PT INR Sodium 140 Potassium 5.2 H Chloride 105 Carbon Dioxide 21 Anion Gap 19 BUN 22 H Creatinine 1.0 Est GFR ( Amer) > 60 Est GFR (Non-Af Amer) 55 POC Glucose (mg/dL) 138 H 219 H Random Glucose 127 H Calcium 9.8 Consultations:: List each consultation separately and include: 1. Reason for request. 2. Findings. 3. Follow-up Summary of Hospital Course include:: 1. Description of specific treatment plan utilized for patients during their course of treatmen. 2. Summarize the time- course for resolution of acute symptoms and/or regressed behaviors. 3. Describe issues identified and worked on during hospitalization. 4. Describe medication utilized. 5. Describe medical problems identified and treated. 6. Reassessment of suicide risk - Final Diagnosis (DSM 5) Condition upon Discharge: GOOD Disposition: AGAINST MEDICAL ADVICE
--- NOTE | 2017-05-29 21:58 | PN ---
PULMONARY PROGRESS NOTE DATE: 05/29/2017 REFERRING PHYSICIAN: Beti Hackett MD SUBJECTIVE: She is ambulating in the hallway, being discharged home today, and will go to a motel. No headache. No rhinitis. No nausea. No vomiting, diarrhea, leg pain or leg swelling. OBJECTIVE: GENERAL: In no acute distress. VITAL SIGNS: Temperature is 98, heart rate is 80, respiratory rate is 20, blood pressure is 132/80, and pulse oximetry is not available. HEENT: Moist mucous membrane. No ulcer or thrush noted. NECK: Supple. No JVD. LUNGS: Has a fair airflow with rhonchi. HEART: S1 and S2. ABDOMEN: Soft and nontender. No organomegaly. EXTREMITIES: There is no edema. NEUROLOGICAL: Awake and alert. Follows simple commands. MEDICATIONS: Reviewed and noted. No new changes in medications reported since yesterday. LABORATORY DATA: Review shows hemoglobin 10.4, hematocrit 31.8, WBC 8.1, and platelet is 423. INR is 1.79. Sodium 140, potassium 5.2, chloride 104, bicarbonate 21, BUN 22, creatinine 1.0, glucose 127, and calcium is 9.8. IMPRESSION AND PLAN: Chronic obstructive lung disease, depression, history of myocardial infarction, coronary artery disease, history of coronary stent, atrial fibrillation, diabetes, and may have sleep apnea syndrome. Pulmonary point of view, she is doing okay not to smoke. Continue inhaled bronchodilator. Gastric prophylaxis. Fall precaution. Spoke about anticoagulation and its risk, expressed understanding, and expressed no more suicidal ideation. Rosina Gabriel MD
--- NOTE | 2017-05-30 01:44 | PN ---
DATE: 05/29/2017 SUBJECTIVE: The patient seen and examined on 05/29/2017. Looking comfortable, excited to go home. No nausea, vomiting, or diarrhea. No hematuria or hematochezia. No swelling of the legs. No chest pain. No palpitation. No headache or dizziness. Worrying about her car. PHYSICAL EXAMINATION: VITAL SIGNS: Temperature 98, heart rate 80, respiratory rate 20, blood pressure 113/80 and pulse oximetry 98%. HEENT: Head normocephalic and atraumatic. Eyes; PERRLA. Extraocular muscles intact. Conjunctivae clear. Nose patent. Mucous membranes moist. NECK: Supple. No carotid bruits, JVD, or thyromegaly. CHEST: Bilaterally symmetrical. HEART: S1 and S2 positive. LUNGS: Clear to auscultation. ABDOMEN: Soft. Bowel sounds present. No organomegaly. EXTREMITIES: No edema. No cyanosis. NEUROLOGIC: The patient is awake and alert. Moving all 4 extremities. No focal deficits. MEDICATIONS: Reviewed by me. LABORATORY DATA: Hemoglobin 10.4, hematocrit 31.8, white blood cell 8.1 and platelets 423. INR 1.9. Sodium 140, potassium 5.2, BUN 22, creatinine 1.0 and glucose 127. ASSESSMENT AND PLAN: Ms. Mallorie Turner is a 72-year-old female with chronic obstructive lung disease. [employer] Claims [employer]er is on the case, depression, anxiety, history of suicide attempts x2, myocardial infarction, coronary artery disease, history of coronary artery stent, atrial fibrillation on Coumadin, d mellitus not very well controlled, sleep apnea syndrome. The patient is doing better. Urged to quit smoking. Continue inhaled bronchodilators. Medicines provided at the bedside. Urged to be compliant and followup as an outpatient. We will follow up. Tanisha Lebron MD
== END 2017-05-29 13:50 | disposition left against medical advice (07) | DRG 885 ==
LOC: PSYC 13:55
PROVIDERS: ADMIT Psychiatry & Neurology Addiction Medicine; ATTEND Psychiatry & Neurology Addiction Medicine
PROC: 3E0F7GC Introduction of Other Therapeutic Substance into Respiratory Tract, Via Natural or Artificial Opening (ICD-10-PCS; principal; 2017-05-23)
DX: F32.2 Major depressive disorder, single episode, severe without psychotic features (principal); I21.4 Non-ST elevation (NSTEMI) myocardial infarction; E11.22 Type 2 diabetes mellitus with diabetic chronic kidney disease; N39.0 Urinary tract infection, site not specified; I42.9 Cardiomyopathy, unspecified; I13.0 Hypertensive heart and chronic kidney disease with heart failure and stage 1 through stage 4 chronic kidney disease, or unspecified chronic kidney disease; I50.9 Heart failure, unspecified; I25.10 Atherosclerotic heart disease of native coronary artery without angina pectoris; E11.65 Type 2 diabetes mellitus with hyperglycemia; I27.20 Pulmonary hypertension, unspecified; I48.91 Unspecified atrial fibrillation; J44.9 Chronic obstructive pulmonary disease, unspecified; G47.33 Obstructive sleep apnea (adult) (pediatric); D64.9 Anemia, unspecified; E78.00 Pure hypercholesterolemia, unspecified; Z59.0 Homelessness; F63.9 Impulse disorder, unspecified; K58.9 Irritable bowel syndrome, unspecified; N18.9 Chronic kidney disease, unspecified; B96.20 Unspecified Escherichia coli [E. coli] as the cause of diseases classified elsewhere; G47.00 Insomnia, unspecified; L85.3 Xerosis cutis; Z79.01 Long term (current) use of anticoagulants; Z95.810 Presence of automatic (implantable) cardiac defibrillator; Z95.5 Presence of coronary angioplasty implant and graft; Z91.5 Personal history of self-harm; Z95.1 Presence of aortocoronary bypass graft; Z98.1 Arthrodesis status; Z87.891 Personal history of nicotine dependence

== ENCOUNTER 2017-07-16 17:51 | Inpatient (IN) | payer MEDICARE, MEDICAID ==
[2017-07-16] MEDS ORDERED: Albuterol-Ipratrop 3 mg / 0.5 (3 ml) UD IH STA (19:00)
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
[2017-07-16 20:35] LABS: BASO # 0.02 K/mm3 (0.0-2.0); BASO % 0.2 % (0.0-3.0); EOS # 0.1 (0.0-0.7); EOS % 0.5 % (1.5-5.0); GRAN % 81.6 % (50.0-68.0); HEMOGLOBIN 11.6 g/dL (12.0-16.0); LYMPH # 1.4 (1.2-3.4); LYMPH % 12.7 % (22.0-35.0); MEAN CELL VOLUME 90.6 fl (80.0-105.0); MEAN CORPUSCULAR HEMOGLOBIN 29.4 pg (25.0-35.0); MEAN CORPUSCULAR HGB CONC 32.4 g/dl (31.0-37.0); MEAN PLATELET VOLUME 9.5 fl (7.0-11.0); MONO # 0.6 (0.1-0.6); RBC 3.95 10^6/uL (3.5-6.1); RED CELL DISTRIBUTION WIDTH 16.3 % (11.5-14.5)
[2017-07-16 20:47] LABS: ALB/GLOB RATIO 1.6 (1.1-1.8); ALBUMIN 4.4 g/dL (3.0-4.8); CALCIUM 11.1 mg/dL (8.4-10.5)
[2017-07-16 20:49] LABS: INR 3.47 (0.93-1.08); PARTIAL THROMBOPLASTIN TIME 46.9 Seconds (25.1-36.5); PROTHROMBIN TIME 40.6 SECONDS (9.4-12.5)
[2017-07-16 21:17] LABS: TROPONIN I 0.3 ng/mL
[2017-07-16] MEDS ORDERED: Lidocaine 5% Patch TD STA (22:39)
[2017-07-16 23:47] LABS: PROTHROMBIN TIME 41.9 SECONDS (9.4-12.5)
[2017-07-16 23:48] LABS: INR 3.58 (0.93-1.08)
[2017-07-17] MEDS: Albuterol-Ipratrop 3 mg / 0.5 (3 ml) UD IH SCH ×4 (02:12→21:04)
--- NOTE | 2017-07-17 06:00 | CP.PCM.PN ---
Subjective - Date & Time of Evaluation Date of Evaluation: 07/17/17 Time of Evaluation: 05:53 - Subjective Subjective: Patient was seen at bed # 8 in the ER. She complained of back pain. It is in the region of right scapula. She has this pain on and off since April 2917. Also complains of shortness of breath and chest tightness. States that she is homeless and lives in her car. Medical record was reviewed. Troponin is 0.30, trending down. This 72 year old white woman is admitted with sob, chest discomfort , back pain , exacerbation of COPD, CHF, coagulopathy. Has PMH of CHF, COPD, TIA, HTN, CAD, S/P Pacemaker, S/P defibrillator, atrial fibrillation, anxiety, depression, DM II, borderline anemia, history Pulmonary embolism. Objective - Vital Signs/Intake and Output Vital Signs (last 24 hours): Temp Pulse Resp BP Pulse Ox 102 H 22 141/87 96 07/17/17 05:27 07/17/17 05:27 07/17/17 05:27 07/17/17 05:27 - Medications Medications: Current Medications Albuterol/Ipratropium (Duoneb 3 Mg/0.5 Mg (3 Ml) Ud) 3 ml IH [id number] ZAIRE Last Admin: 07/17/17 02:12 Dose: 3 ml Famotidine (Pepcid) 40 mg PO HS ZAIRE Furosemide (Lasix) 40 mg IVP Q12 ZAIRE Insulin Human Regular (Humulin R Low) 0 units SC ACHS ZAIRE PRN Reason: Protocol Lidocaine (Lidoderm) 1 ea TD DAILY ZAIRE Methylprednisolone (Solu-Medrol) 40 mg IVP Q12 ZAIRE Potassium Chloride (K-Dur 20 Meq Er Tab) 20 meq PO DAILY ZAIRE Prasugrel (Effient) 5 mg PO DAILY ZAIRE Sertraline HCl (Zoloft) 100 mg PO DAILY ZAIRE - Labs Labs: PT 41.9 SECONDS (9.4-12.5) H 07/16/17 23:10 INR 3.58 (0.93-1.08) H* 07/16/17 23:10 APTT 46.9 Seconds (25.1-36.5) H 07/16/17 20:15 Most Recent Lab Values WBC 11.0 10^3/ul (4.5-11.0) D 07/16/17 20:15 RBC 3.95 10^6/uL (3.5-6.1) 07/16/17 20:15 Hgb 11.6 g/dL (12.0-16.0) L 07/16/17 20:15 Hct 35.8 % (36.0-48.0) L 07/16/17 20:15 MCV 90.6 fl (80.0-105.0) 07/16/17 20:15 MCH 29.4 pg (25.0-35.0) 07/16/17 20:15 MCHC 32.4 g/dl (31.0-37.0) 07/16/17 20:15 RDW 16.3 % (11.5-14.5) H 07/16/17 20:15 Plt Count 333 10^3/uL (120.0-450.0) 07/16/17 20:15 MPV 9.5 fl (7.0-11.0) 07/16/17 20:15 Gran % 81.6 % (50.0-68.0) H 07/16/17 20:15 Lymph % (Auto) 12.7 % (22.0-35.0) L 07/16/17 20:15 [place] % (Auto) 5.0 % (1.0-6.0) 07/16/17 20:15 Eos % (Auto) 0.5 % (1.5-5.0) L 07/16/17 20:15 Baso % (Auto) 0.2 % (0.0-3.0) 07/16/17 20:15 Gran # 9.00 (1.4-6.5) H 07/16/17 20:15 Lymph # (Auto) 1.4 (1.2-3.4) 07/16/17 20:15 [place] # (Auto) 0.6 (0.1-0.6) 07/16/17 20:15 Eos # (Auto) 0.1 (0.0-0.7) 07/16/17 20:15 Baso # (Auto) 0.02 K/mm3 (0.0-2.0) 07/16/17 20:15 PT 41.9 SECONDS (9.4-12.5) H 07/16/17 23:10 INR 3.58 (0.93-1.08) H* 07/16/17 23:10 APTT 46.9 Seconds (25.1-36.5) H 07/16/17 20:15 Sodium 136 mmol/L (132-148) 07/16/17 20:15 Potassium 4.4 mmol/L (3.6-5.0) 07/16/17 20:15 Chloride 102 mmol/L (98-107) 07/16/17 20:15 Carbon Dioxide 18 mmol/L (21-33) L 07/16/17 20:15 Anion Gap 20 (10-20) 07/16/17 20:15 BUN 19 mg/dL (7-21) 07/16/17 20:15 Creatinine 1.2 mg/dl (0.7-1.2) 07/16/17 20:15 Est GFR ( Amer) 54 07/16/17 20:15 Est GFR (Non-Af Amer) 44 07/16/17 20:15 POC Glucose (mg/dL) 205 mg/dL (65-110) H 07/17/17 00:42 Random Glucose 161 mg/dL (70-110) H 07/16/17 20:15 Calcium 11.1 mg/dL (8.4-10.5) H 07/16/17 20:15 Total Bilirubin 0.6 mg/dL (0.2-1.3) 07/16/17 20:15 AST 35 U/L (14-36) 07/16/17 20:15 ALT 37 U/L (7-56) 07/16/17 20:15 Alkaline Phosphatase 87 U/L (38-126) 07/16/17 20:15 Total Creatine Kinase 33 U/L (35-230) L 07/16/17 20:15 Troponin I 0.30 ng/mL H* D 07/16/17 20:15 NT-Pro-B Natriuret Pep 6620 pg/mL (0-450) H 07/16/17 20:15 Total Protein 7.2 g/dL (5.8-8.3) 07/16/17 20:15 Albumin 4.4 g/dL (3.0-4.8) 07/16/17 20:15 Globulin 2.8 gm/dL 01/31/18 20:15 Albumin/Globulin Ratio 1.6 (1.1-1.8) 07/16/17 20:15 - Constitutional Appears: Well, No Acute Distress - Head Exam Head Exam: ATRAUMATIC, NORMAL INSPECTION, NORMOCEPHALIC - Eye Exam Eye Exam: Normal appearance - ENT Exam ENT Exam: Normal External Ear Exam - Neck Exam Neck Exam: Normal Inspection - Respiratory Exam Respiratory Exam: Rales (Bilateral basal.), Wheezes (Bilateral.) - Cardiovascular Exam Cardiovascular Exam: Irregular Rhythm. absent: JVD - GI/Abdominal Exam GI & Abdominal Exam: absent: Distended - Rectal Exam Rectal Exam: Deferred - Exam Additional comments: Deferred. - Extremities Exam Extremities Exam: Normal Inspection - Back Exam Back Exam: NORMAL INSPECTION. absent: paraspinal tenderness - Neurological Exam Neurological Exam: Alert, Awake, Oriented x3 - Psychiatric Exam Psychiatric exam: Normal Affect, Normal Mood - Skin Skin Exam: Normal Color Assessment and Plan - Assessment and Plan (Free Text) Assessment: Thoracic back pain. Exacerbation of CHF. Exacerbation of COPD. Elevated troponin. Coagulopathy. Anemia. CAD. Hx AICD. Hx PPM. HTN. DM II. Atrial fibrillation. History pulmonary embolism Plan: Toradol 30 mg IV x 1. Continue present management as per PMD.
[2017-07-17 07:25] LABS: HEMOGLOBIN 12.9 g/dL (12.0-16.0); MEAN CELL VOLUME 90.1 fl (80.0-105.0); MEAN CORPUSCULAR HEMOGLOBIN 29.8 pg (25.0-35.0); MEAN CORPUSCULAR HGB CONC 33.1 g/dl (31.0-37.0); MEAN PLATELET VOLUME 9.2 fl (7.0-11.0); RBC 4.33 10^6/uL (3.5-6.1); RED CELL DISTRIBUTION WIDTH 16.5 % (11.5-14.5); WHITE BLOOD COUNT 12.3 10^3/ul (4.5-11.0)
[2017-07-17] MEDS ORDERED: Insulin Regular 1 UNITS/0.01 ML ML ONE (08:10)
[2017-07-17] MEDS: Insulin Reg-LOW-Coverage SC SCH ×4 (08:11→22:02)
[2017-07-17 08:24] LABS: CALCIUM 10.8 mg/dL (8.4-10.5)
--- NOTE | 2017-07-17 08:34 | RAD ---
HISTORY: cp, dyspnea COMPARISON: No prior. FINDINGS: LUNGS: No acute infiltrate. Increased interstitial markings at both lung bases likely chronic. PLEURA: Slight blunting of left costophrenic angle may reflect chronic pleural thickening. CARDIOVASCULAR: Normal heart size. Status post CABG. Sternotomy wires. AICD. No congestive change. OSSEOUS STRUCTURES: No significant abnormalities. VISUALIZED UPPER ABDOMEN: Normal. OTHER FINDINGS: None. IMPRESSION: No active disease.
[2017-07-17] MEDS: Potassium Chloride 20 mEq ER Tab PO SCH (11:06)
[2017-07-17] MEDS: MethylPREDNISolone 40 mg Vial IVP SCH ×2 (11:06→22:02)
[2017-07-17] MEDS: Lidocaine 5% Patch TD SCH (11:07)
[2017-07-17] MEDS: diltiaZEM 180 mg/24 Hours CD Cap PO SCH (11:50)
--- NOTE | 2017-07-17 16:13 | CARD ---
APPROVED REPORT EKG Measurement Heart [id number] <Conclusion> Electronic ventricular pacemaker
--- NOTE | 2017-07-17 16:17 | CARD ---
APPROVED REPORT EKG Measurement Heart [id number] [id number] <Conclusion> Electronic ventricular pacemaker
[2017-07-17] MEDS: Digoxin 125 mcg (0.125 mg) Tab PO SCH (17:36)
--- NOTE | 2017-07-17 19:13 | CON ---
DATE: 07/17/2017 CONSULTATION INDICATIONS: Chest pain, shortness of breath, CHF. HISTORY OF PRESENT ILLNESS: This is a 72-year-old woman known to me, admitted to [facility] with chest pain and shortness of breath. She has chronic shortness of breath, which became worse with some congestion and upper chest discomfort. She has been homeless recently living out of her car and briefly with friends. She claims to be taking her medications despite these difficulties. Her INR was elevated. She was admitted and treated in the emergency room. This morning she feels better with less shortness of breath. There was no chest pain. She did report orthopnea and mild edema. There was no palpitation, syncope, fever, chills, cough, sputum production, hemoptysis, abdominal pain, nausea, vomiting, diarrhea, constipation or melena. PAST MEDICAL HISTORY: Her past medical history is complex. She has had recent admissions for congestive heart failure and on a couple of occasions had suicidal gestures where she attempted to slit her wrist with a drip box tender. She was then evaluated by Psychiatry. She has been on the psychiatric unit. She has a history of extensive coronary artery disease, myocardial infarction, severe LV dysfunction. She has had bypass surgery and coronary interventions. Her LV function is poor. She has had nonsustained VT and has an ICD implanted. She has had paroxysmal atrial fibrillation and has been treated with warfarin. There is a history of hypertension, diabetes, hyperlipidemia, COPD, remote pulmonary embolus, extensive colon resection with ileostomy, chronic pain and chronic depression. MEDICATIONS: At the time of admission include aspirin, Lipitor, Coreg, digoxin, diltiazem, Pepcid, Lasix, glipizide, hydralazine, insulin, Lidoderm, lisinopril, magnesium, Singulair, potassium, biotin, Zoloft, Effient. She claims compliance to these medications. ALLERGIES: SHE NOTES AN ALLERGY TO PLAVIX. FAMILY HISTORY: Noncontributory. SOCIAL HISTORY: She is ambulatory, but limited. She does not smoke currently. She does not drink alcohol. REVIEW OF SYSTEMS: A 10-point review of systems was otherwise unremarkable except as noted above. PHYSICAL EXAMINATION GENERAL: She is a well-developed elderly woman, lying on the stretcher in the emergency room, in no acute distress. VITAL SIGNS: Notable for paced rhythm, 77 to 102 beats per minute, blood pressure 141/87, respirations 16-22, O2 saturation 93% to 100% on nasal cannula. HEENT: Examination reveals neck vein distention, but no thyromegaly or carotid bruit. Mucous membranes moist. Conjunctivae pink. NECK: Supple. LUNGS: Lung coelho, scattered rhonchi. Few rales at the bases. HEART: Examination of the heart revealed normal first and second heart sounds. There is a systolic murmur along the left sternal border. PMI is displaced laterally. ABDOMEN: Soft. Bowel sounds are present. No mass, organomegaly, tenderness, rebound or guarding. No CVA tenderness. No palpable abdominal aortic aneurysm. EXTREMITIES: Revealed mild edema. NEUROLOGIC: She was awake, alert, and oriented. PSYCHIATRIC: Normal as to mood and affect. SKIN: Warm and dry. No rash or cellulitis. LABORATORY AND IMAGING: A portable chest x-ray shows cardiomegaly and some vascular congestion. It was officially read as no active disease. Her EKG shows a ventricular paced rhythm, atrial sensed. White count of 12,300, hemoglobin and hematocrit 12.9 and 39, platelet count normal. PT 41.9, INR 3.58, PTT 46.9. Electrolytes: BUN and creatinine unremarkable. LFTs unremarkable. CK 33, troponin 0.30, BNP 6620, TSH 0.39, blood sugars in the 100 to 200 range. IMPRESSION: Mallorie Francis is a 72-year-old woman, well known to me with decompensated congestive heart failure, chest pain, rule out myocardial infarction, rule out congestive heart failure. She has an extensive cardiac history, also a history of chronic obstructive pulmonary disease, depression, suicidal thoughts and actions and currently living out of her car intermittently and with friends. PLAN: At this time, she will be admitted to telemetry. I will resume her usual medications. We will get serial enzymes. I will check a digoxin level. We will hold warfarin and monitor INRs daily. I will review her old records. She can be out of bed to a chair. We will give her IV Lasix. We will resume hydralazine, aspirin, Coreg, Effient, potassium, digoxin, Lidoderm, Lipitor, Pepcid, lisinopril, Zoloft. I would suggest psychiatric follow up. She will have pulmonary follow up. We will monitor I's and O's, check stool for occult blood. We will get health care social worker involved to see if there is any assistance that can be given. I will follow along with you and make additional recommendations based on her clinical course. Nas Kemp MD [facility]
[2017-07-17 22:14] VITALS: BMI 20.8
[2017-07-17] MEDS ORDERED: Influenza Vaccine 60 mcg/0.5 mL SYR (4YR UP) IM ONE (22:14)
[2017-07-17] MEDS ORDERED: Pneumococcal 23-Valent Vaccine IM ONE (22:14)
[2017-07-18] MEDS: Albuterol-Ipratrop 3 mg / 0.5 (3 ml) UD IH SCH ×4 (02:14→20:55)
--- NOTE | 2017-07-18 05:05 | CON ---
DATE: PULMONARY CONSULTATION REFERRING PHYSICIAN: Tanisha Lebron MD REASON FOR CONSULT: Cough, shortness of breath, chronic lung disease. HISTORY OF PRESENT ILLNESS: This is a 72-year-old female well known to me from previous admission with past medical history significant for chronic obstructive lung disease, cardiomyopathy, decreased LV function, coronary artery disease, history of coronary stents, has a defibrillator, history of PE, comes into emergency room with cough and shortness of breath, mild headache. No nausea, no vomiting. No diarrhea. Does have some leg swelling. PAST MEDICAL HISTORY: Again significant for cardiomyopathy, coronary artery disease, history of major depression, chronic obstructive lung disease, history of pulmonary embolism, may have sleep apnea syndrome, but refuses to use CPAP. ALLERGIES: PLAVIX. SOCIAL HISTORY: Stopped smoking. Denied any alcohol use. FAMILY HISTORY: No significant cardiopulmonary disease reported. MEDICATIONS: She is on hydralazine 25 mg 3 times a day, Cardizem CD 180 mg daily, Coreg 25 mg twice a day, albuterol Atrovent nebulizer q. 6 hours p.r.n., Effient 5 mg daily, insulin coverage, potassium 20 mEq daily, digoxin 0.125 mg daily, Lasix 40 mg q. 12 hours, Lidoderm patch daily, Lipitor 20 mg daily, Pepcid 40 mg at bedtime, Solu-Medrol 40 mg q. 12 hours, Zestril 20 mg daily, Zoloft 100 mg daily. REVIEW OF SYSTEM: Had on and off headache, rhinitis, cough, sputum production, chest pain. No nausea, no vomiting. No diarrhea. No leg pain. Does have a trace leg swelling. PHYSICAL EXAMINATION: GENERAL: Lying in the bed, no acute distress. VITAL SIGNS: Temperature 98, heart rate 79, respiratory rate is 18, blood pressure 117/64, pulse ox 97% on nasal cannula. HEENT: Moist mucous membranes. Small oral cavity. NECK: Supple. No JVD. LUNGS: Has scattered rhonchi. HEART: S1 and S2. ABDOMEN: Soft, nontender. No organomegaly. EXTREMITIES: There is trace edema. NEUROLOGIC: Awake, alert, follows simple commands. LABORATORY DATA: Shows hemoglobin 12.9, hematocrit 39.0, WBC 12.3, platelet is 331. INR 3.58. Sodium 136, potassium 4.2, chloride 102, bicarbonate 18, BUN 23, creatinine 1.4, glucose 239, calcium 10.8. Troponin is 3.71. TSH 0.39. Digoxin 1.5. EKG done today shows heart rate is 101. Chest x-ray done on admission shows no active disease. ASSESSMENT AND PLAN: Status post myocardial infarction, chronic obstructive lung disease, depression, coronary artery disease, history of coronary stent, atrial fibrillation, diabetes, sleep apnea syndrome. I am not sure of patient's compliance with platelet inhibitor. We will continue IV and inhaled bronchodilator. We will get influenza A and B testing. Gastric prophylaxis. Follow up INR in the morning. Careful with sedation. I had a long discussion with the patient about her coronary stent and need of platelet inhibitors and risk of coronary stent obstruction and heart attack and . She expressed understanding and will be compliant with it. Thank you and we will follow with you. Rosina Gabriel MD
--- NOTE | 2017-07-18 05:51 | HP ---
The patient is a 72-year-old female. CHIEF COMPLAINT: Shortness of breath, chest pain, anxiety. HISTORY OF PRESENT ILLNESS: Ms. Mallorie Francis is a 72-year-old female with past medical history of COPD, congestive heart failure, bypass with pacemaker, defibrillator and stents, history of PE in 2002, came to the emergency room department complaining about shortness of breath and chest pain that developed on the day of admission and patient reports difficulty in walking, but denies any lower extremity swelling. Patient reports using inhalers for shortness of breath, describes pain as pressure, worse when lying down flat. Notes these symptoms seem similar to the past. No access to home oxygen. Patient is homeless, sleeps in car and sometimes goes to the senior living. Patient has never been intubated in the past. Patient denies any fever, chills, nausea, vomiting or diarrhea. No hematuria or hematochezia. PAST MEDICAL HISTORY: As above. History of angina, atrial fibrillation, internal defibrillator, pacemaker, coronary artery bypass, COPD, TIA, eye glasses, diabetes mellitus type 2, ileostomy reversal in 2010, anxiety, depression, coronary stenting, neck fusion of cervical spine C5 and C6. FAMILY HISTORY: Father and mother, noncontributory. HABITS: Former smoker. No alcohol. No substance abuse. ALLERGIES: PATIENT IS ALLERGIC WITH PLAVIX. REVIEW OF SYSTEMS: Patient is seen and examined in the emergency room. No nausea or vomiting. Still has shortness of breath, chest pain. No headache or dizziness. Feeling fatigue and tired. Feeling dyspnea. PHYSICAL EXAMINATION: VITAL SIGNS: Temperature 97.7, pulse 72, blood pressure 117/64, respiratory rate 19. HEENT: Head is normocephalic, atraumatic. Eyes: PERRLA. Extraocular muscles are intact. Conjunctivae are clear. Nose is patent. Mucous membranes are moist. NECK: Supple. No carotid bruits, JVD or thyromegaly. CHEST: Bilaterally symmetrical. HEART: S1 and S2 positive. LUNGS: Clear to auscultation. ABDOMEN: Soft. Bowel sounds positive. No organomegaly. EXTREMITIES: No edema. No cyanosis. NEUROLOGIC: The patient is awake and alert. Moving all four extremities. No focal deficit. LABORATORY DATA: White blood cell is 12.3, hemoglobin 12.9, hematocrit 39.0, platelets 331. Sodium 136, potassium 4.2, BUN 23, creatinine 1.4, and glucose 196. ASSESSMENT AND PLAN: Ms. Mallorie Francis is a 72-year-old lady with leukocytosis, renal insufficiency, uncontrolled diabetes mellitus, hypercalcemia, coagulopathy, came with chest pain and shortness of breath, seen by Dr. Nas Kemp, patient's advance agent. Patient has medical history that is very complex, recent admission for congestive heart failure on couple of occasions, had suicidal gesture when she attempted to slit her wrist with a paper box cutter x2. Patient had admission on the Psych Unit also. Extensive coronary artery disease, myocardial infarction, left ventricular dysfunction, bypass surgery. She has nonsustained ventricular tachycardia and has an implantable cardioverter-defibrillator implanted. She has paroxysmal atrial fibrillation and has been treated with warfarin. INR is high, we will hold warfarin today. She has hypertension, hypercholesterolemia, chronic obstructive pulmonary disease, remote pulmonary embolism, extensive colon resection with ileostomy, chronic pain and chronic depression. Now, patient is admitted, seen by Dr. Nas Kemp, patient's advance agent. Resume all home medications. Get serials of cardiac enzymes. We will start IV Lasix, hydralazine, aspirin, Coreg, Effient, potassium, digoxin, Lidoderm, Lipitor, Paxil, lisinopril and Zoloft. We will call Psych consult also. We will repeat labs. Gastrointestinal and deep venous thrombosis prophylaxis. We will follow up. Tanisha Lebron MD MTDD
[2017-07-18 06:41] LABS: HEMOGLOBIN 10.5 g/dL (12.0-16.0); MEAN CELL VOLUME 92.1 fl (80.0-105.0); MEAN CORPUSCULAR HEMOGLOBIN 29.5 pg (25.0-35.0); MEAN PLATELET VOLUME 9.3 fl (7.0-11.0); RBC 3.56 10^6/uL (3.5-6.1); RED CELL DISTRIBUTION WIDTH 16.6 % (11.5-14.5); WHITE BLOOD COUNT 11.3 10^3/ul (4.5-11.0)
[2017-07-18 06:46] LABS: IRON 39 ug/dL (45-180)
[2017-07-18 06:59] LABS: LDL CHOLESTEROL 107 mg/dL (0-129); PROTHROMBIN TIME 50.5 SECONDS (9.4-12.5)
[2017-07-18 07:01] LABS: INR 4.26 (0.93-1.08)
[2017-07-18 07:02] LABS: BLOOD UREA NITROGEN 34 mg/dL (7-21); CALCIUM 9.9 mg/dL (8.4-10.5); GFR AFRICAN-AMERICAN 45; GFR NON-AFRICAN AMERICAN 37; HDL CHOLESTEROL 38 mg/dL (29-60)
[2017-07-18 07:05] LABS: % IRON SATURATION 11 % (20-55); TOTAL IRON BINDING CAPACITY 347 ug/dL (265-497)
[2017-07-18 07:18] LABS: B-TYPE NATRIURETIC PEPTIDE 23000 pg/mL (0-450)
[2017-07-18] MEDS: Insulin Reg-LOW-Coverage SC SCH ×4 (07:48→21:28)
--- NOTE | 2017-07-18 07:52 | CP.PCM.PN ---
Subjective - Date & Time of Evaluation Date of Evaluation: 07/18/17 Time of Evaluation: 07:00 - Subjective Subjective: Stable on 2R. She feels better but still occ chest pain. Not SOB in bed this A. V/S noted. V. Paced/A. Sensed PE: Lungs: rhonchi Cor.: S1S2 Abd.: soft Ext.: no edema Neuro.: alert I/O N/A Labs noted: trop 10.5, INR = 4.26 Objective - Vital Signs/Intake and Output Vital Signs (last 24 hours): Temp Pulse Resp BP Pulse Ox 98.1 F 85 19 100/54 L 98 07/18/17 06:00 07/18/17 06:00 07/18/17 06:00 07/18/17 06:00 07/18/17 06:00 Intake and Output: 07/18/17 07/18/17 06:59 18:59 Intake Total 1000 Output Total 3 Balance 997 - Medications Medications: Current Medications Albuterol/Ipratropium (Duoneb 3 Mg/0.5 Mg (3 Ml) Ud) 3 ml IH [id number] [facility] Last Admin: 07/18/17 02:14 Dose: 3 ml Atorvastatin Calcium (Lipitor) 20 mg PO DIN [facility] Last Admin: 07/17/17 17:36 Dose: 20 mg Carvedilol (Coreg) 25 mg PO BID [facility] Last Admin: 07/17/17 17:36 Dose: 25 mg Digoxin (Lanoxin) 0.125 mg PO 1400 [facility] Last Admin: 07/17/17 17:36 Dose: 0.125 mg Diltiazem HCl (Cardizem Cd) 180 mg PO DAILY [facility] Last Admin: 07/17/17 11:50 Dose: 180 mg Doxycycline Hyclate (Doryx) 100 mg PO Q12 [facility] PRN Reason: Protocol Last Admin: 07/17/17 22:02 Dose: 100 mg Famotidine (Pepcid) 40 mg PO HS [facility] Last Admin: 07/17/17 22:02 Dose: 40 mg Furosemide (Lasix) 40 mg IVP Q12 [facility] Last Admin: 07/17/17 22:02 Dose: 40 mg Home Med (Home Med) 1 unit PO DAILY [facility] Home Med (Home Med) 1 unit PO DAILY [facility] Hydralazine HCl (Apresoline) 25 mg PO TID [facility] Last Admin: 07/17/17 17:35 Dose: 25 mg Insulin Human Regular (Humulin R Low) 0 units SC ACHS [facility] PRN Reason: Protocol Last Admin: 07/17/17 22:02 Dose: Not Given Lidocaine (Lidoderm) 1 ea TD DAILY [facility] Last Admin: 07/17/17 11:07 Dose: 1 ea Lisinopril (Zestril) 20 mg PO DAILY [facility] Last Admin: 07/17/17 11:07 Dose: 20 mg Methylprednisolone (Solu-Medrol) 40 mg IVP Q12 [facility] Last Admin: 07/17/17 22:02 Dose: 40 mg Potassium Chloride (K-Dur 20 Meq Er Tab) 20 meq PO DAILY [facility] Last Admin: 07/17/17 11:06 Dose: 20 meq Prasugrel (Effient) 5 mg PO DAILY [facility] Last Admin: 07/17/17 11:49 Dose: 5 mg Sertraline HCl (Zoloft) 100 mg PO DAILY [facility] Last Admin: 07/17/17 11:49 Dose: 100 mg - Labs Labs: 07/18/17 05:30 07/18/17 05:30 PT 50.5 SECONDS (9.4-12.5) H 07/18/17 05:30 INR 4.26 (0.93-1.08) H* 07/18/17 05:30 APTT 46.9 Seconds (25.1-36.5) H 07/16/17 20:15 Assessment and Plan - Assessment and Plan (Free Text) Assessment: CP/SOB NSTEMI CHF, acute on chronic systolic CAD/OH/CABG/PCIs/Severe LVD NSVT/ICD PAF HBP Diabetes HLD COPD Colon resection/ileostomy Chronic Pain Depression/Suicidal actions Plan Hold warfarin. Monitor INR's daily Continue IV Lasix Monitor: I/O, labs, INR's, sats., etc. OOB as lou [employer] Evaluation.
[2017-07-18] MEDS: BIOTIN 1000MCG PO SCH (10:06)
[2017-07-18] MEDS: diltiaZEM 180 mg/24 Hours CD Cap PO SCH (10:06)
[2017-07-18] MEDS: TRADJENTA 5MG PO SCH ×2 (10:06→17:52)
[2017-07-18] MEDS: Potassium Chloride 20 mEq ER Tab PO SCH (10:07)
[2017-07-18] MEDS: MethylPREDNISolone 40 mg Vial IVP SCH ×2 (10:08→21:34)
[2017-07-18] MEDS: Lidocaine 5% Patch TD SCH (10:08)
[2017-07-18 13:09] LABS: FOLATE > 20.0 ng/mL
[2017-07-18] MEDS ORDERED: Oxycodone/Acetaminophen 5/325 mg Tab PO ONE (14:05)
[2017-07-18] MEDS: Digoxin 125 mcg (0.125 mg) Tab PO SCH (14:59)
[2017-07-18] MEDS: Home Med 1 UNIT PO SCH (21:38)
--- NOTE | 2017-07-18 23:43 | PN ---
DATE: 07/18/2017 PULMONARY PROGRESS NOTE REFERRING PHYSICIAN: Tanisha Lebron MD. SUBJECTIVE: The patient is lying in the bed, complaining about back pain. No headache, no rhinitis. Mild cough. Chest pain is improved. No nausea, no vomiting, diarrhea, leg pain, leg swelling. OBJECTIVE: GENERAL: In no acute distress. VITAL SIGNS: Temp is 98, heart rate 60, respiratory rate is 20, blood pressure 133/45, pulse ox 98% on 2 L nasal cannula. HEENT: Moist mucous membrane. Crowded airway. NECK: Supple. No JVD. LUNGS: Have scattered rhonchi and few wheezing. HEART: S1 and S2. ABDOMEN: Soft, nontender. No organomegaly. EXTREMITIES: No edema. NEUROLOGIC: Awake and alert. Follows simple command. MEDICATIONS: She is on hydralazine 25 mg three times a day, Cardizem CD 180 mg daily, Coreg 25 mg twice a day, doxycycline 100 mg twice a day, DuoNeb q. 6 hours, Effient 5 mg daily, insulin coverage, potassium 20 mEq daily, digoxin 0.125 mg daily, Lasix 40 mg twice a day, lidocaine patch at affected area, Lipitor 20 mg daily, Solu-Medrol 40 mg q. 12 hours, Zestril 20 mg daily, Zoloft 100 mg daily. LABORATORY DATA: Shows hemoglobin 10.5, hematocrit 32.8, WBC 11.3, platelet is 265. INR today 4.26. Blood sugar 206. Iron is 39, hemoglobin A1c 6.1. Sodium 37, potassium 4.2, chloride 102, bicarbonate 26, BUN 34, creatinine 1.4, glucose 207, troponin 10.5, triglyceride is 161, TSH 0.18. IMPRESSION AND PLAN: Status post myocardial infarction, chronic obstructive lung disease, depression, coronary artery disease, coronary stent, atrial fibrillation, diabetes, sleep apnea syndrome. I am not sure if she was using her Effient platelet inhibitor as outpatient? Being followed by Cardiology. Pulmonary point of view, she is doing okay. Continue antibiotics. Continue IV and inhaled bronchodilator. May use heating pad on the upper back area. Follow up INR in the morning. Gastric prophylaxis. Thank you and we will follow with you. Rosina Gabriel MD [facility] # [id number]
[2017-07-19] MEDS: Albuterol-Ipratrop 3 mg / 0.5 (3 ml) UD IH SCH ×4 (01:37→21:23)
[2017-07-19 07:27] LABS: CALCIUM 9.7 mg/dL (8.4-10.5)
[2017-07-19 07:32] LABS: INR 3.19 (0.93-1.08); PROTHROMBIN TIME 37.6 SECONDS (9.4-12.5)
[2017-07-19 07:38] LABS: TROPONIN I 5.82 ng/mL
--- NOTE | 2017-07-19 07:44 | CP.PCM.PN ---
Subjective - Date & Time of Evaluation Date of Evaluation: 07/19/17 Time of Evaluation: 07:00 - Subjective Subjective: Stable on 2R. She feels better. 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 V/S noted. V. Paced/A. Sensed PE: Lungs: rhonchi Cor.: S1S2 Abd.: soft Ext.: no edema Neuro.: alert I/O 1140/200 recorded Labs noted: trop pending, INR = 3.19, Cr. = 1.4 Objective - Vital Signs/Intake and Output Vital Signs (last 24 hours): Temp Pulse Resp BP Pulse Ox 97.9 F 62 20 122/53 L 94 L 07/19/17 06:00 07/19/17 06:00 07/19/17 06:00 07/19/17 06:00 07/19/17 06:00 Intake and Output: 07/19/17 07/19/17 06:59 18:59 Intake Total 240 Balance 240 - Medications Medications: Current Medications Albuterol/Ipratropium (Duoneb 3 Mg/0.5 Mg (3 Ml) Ud) 3 ml IH [id number] [facility] Last Admin: 07/19/17 01:37 Dose: Not Given Atorvastatin Calcium (Lipitor) 20 mg PO DIN [facility] Last Admin: 07/18/17 17:31 Dose: 20 mg Carvedilol (Coreg) 25 mg PO BID [facility] Last Admin: 07/18/17 17:30 Dose: 25 mg Digoxin (Lanoxin) 0.125 mg PO 1400 [facility] Last Admin: 07/18/17 14:59 Dose: 0.125 mg Diltiazem HCl (Cardizem Cd) 180 mg PO DAILY [facility] Last Admin: 07/18/17 10:06 Dose: 180 mg Doxycycline Hyclate (Doryx) 100 mg PO Q12 [facility] PRN Reason: Protocol Last Admin: 07/18/17 21:27 Dose: 100 mg Famotidine (Pepcid) 40 mg PO HS [facility] Last Admin: 07/18/17 21:34 Dose: 40 mg Furosemide (Lasix) 40 mg IVP Q12 [facility] Last Admin: 07/18/17 21:29 Dose: 40 mg Home Med (Home Med) 1 unit PO DAILY [facility] Last Admin: 07/18/17 10:06 Dose: 1 unit Home Med (Home Med) 1 unit PO 1900 [facility] Last Admin: 07/18/17 21:38 Dose: 1 unit Hydralazine HCl (Apresoline) 25 mg PO TID [facility] Last Admin: 07/18/17 17:30 Dose: 25 mg Insulin Human Regular (Humulin R Low) 0 units SC ACHS [facility] PRN Reason: Protocol Last Admin: 07/18/17 21:28 Dose: Not Given Lidocaine (Lidoderm) 1 ea TD DAILY [facility] Last Admin: 07/18/17 10:08 Dose: 1 ea Lisinopril (Zestril) 20 mg PO DAILY [facility] Last Admin: 07/18/17 10:08 Dose: 20 mg Methylprednisolone (Solu-Medrol) 40 mg IVP Q12 [facility] Last Admin: 07/18/17 21:34 Dose: 40 mg Potassium Chloride (K-Dur 20 Meq Er Tab) 20 meq PO DAILY [facility] Last Admin: 07/18/17 10:07 Dose: 20 meq Prasugrel (Effient) 5 mg PO DAILY [facility] Last Admin: 07/18/17 10:56 Dose: 5 mg Sertraline HCl (Zoloft) 100 mg PO DAILY [facility] Last Admin: 07/18/17 10:08 Dose: 100 mg - Labs Labs: 07/18/17 05:30 07/19/17 06:00 PT 37.6 SECONDS (9.4-12.5) H 07/19/17 06:00 INR 3.19 (0.93-1.08) H 07/19/17 06:00 APTT 46.9 Seconds (25.1-36.5) H 07/16/17 20:15 Assessment and Plan - Assessment and Plan (Free Text) Assessment: CP/SOB NSTEMI CHF, acute on chronic systolic CAD/[place]/CABG/PCIs/Severe LVD NSVT/ICD PAF HBP Diabetes HLD COPD Colon resection/ileostomy Chronic Pain Depression/Suicidal actions Plan Hold warfarin. Monitor INR's daily Continue IV Lasix Monitor: I/O, labs, INR's, sats., etc. 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
[2017-07-19] MEDS: Insulin Reg-LOW-Coverage SC SCH ×4 (07:55→22:41)
[2017-07-19] MEDS: Potassium Chloride 20 mEq ER Tab PO SCH (09:48)
[2017-07-19] MEDS: MethylPREDNISolone 40 mg Vial IVP SCH ×3 (09:48→22:40)
[2017-07-19] MEDS: Lidocaine 5% Patch TD SCH (09:49)
[2017-07-19] MEDS: BIOTIN 1000MCG PO SCH (12:26)
[2017-07-19] MEDS: Digoxin 125 mcg (0.125 mg) Tab PO SCH (14:55)
[2017-07-19] MEDS: diltiaZEM 180 mg/24 Hours CD Cap PO SCH (14:56)
--- NOTE | 2017-07-19 16:37 | PN ---
DATE: SUBJECTIVE: The patient is 72-year-old female. The patient is seen and examined at the bedside, looking comfortable, complaining about back pain. Cough is better. Shortness of breath is better. No nausea, vomiting, or diarrhea. No hematuria or hematochezia. No swelling of the legs. No chest pain or palpitations. No headache or dizziness. PHYSICAL EXAMINATION: VITAL SIGNS: Temperature 97.9, pulse 70, blood pressure 122/48, and respiratory rate 20. HEENT: Head is normocephalic, atraumatic. Eyes: PERRLA. Extraocular muscles are intact. Conjunctivae are clear. Nose is patent. Mucous membranes are moist. NECK: Supple. No carotid bruits. No JVD. No thyromegaly. CHEST: Bilaterally symmetrical. HEART: S1 and S2 positive. LUNGS: Clear to auscultation. ABDOMEN: Soft. Bowel sounds present. No organomegaly. EXTREMITIES: No edema. No cyanosis. NEUROLOGIC: The patient is awake and alert. Moving all 4 extremities. No focal deficits. MEDICATIONS: Hydralazine, Cardizem, Coreg, doxycycline, albuterol, Effient, potassium, and Lanoxin. LABORATORY DATA: White blood cell is 11.3, hemoglobin 10.5, hematocrit 32.8, and platelets 265. Sodium 138, potassium 3.9, BUN 44, creatinine 1.4, and glucose 180. ASSESSMENT AND PLAN: Ms. Mallorie Turner is a 72-year-old lady with leukocytosis, anemia, renal insufficiency, hyperglycemia, seen by the nsh teacher, Dr. Nas Kemp and the aegis operations specialist, Dr. Rosina Gabriel, came with chest pain and shortness of breath, has non-ST elevation myocardial infarction, acute on chronic systolic congestive heart failure, coronary artery disease, coronary artery bypass graft, severe left ventricular dysfunction, supraventricular tachycardia/implantable cardioverter defibrillator, diabetes mellitus, chronic obstructive pulmonary disease, colon resection, ileostomy, chronic pain syndrome, depression, history of suicidal ideation and suicidal plan. We will continue present treatment. The patient is getting lidocaine patch for pain, out of bed, physical therapy. Repeat labs. We will follow up. Tanisha Lebron MD
[2017-07-19] MEDS: Home Med 1 UNIT PO SCH (19:38)
[2017-07-19] MEDS ORDERED: guaiFENesin 100 mg/5 ml Syrup UD PO STA (22:35)
[2017-07-20] MEDS: Albuterol-Ipratrop 3 mg / 0.5 (3 ml) UD IH SCH ×4 (01:04→22:46)
--- NOTE | 2017-07-20 03:18 | PN ---
DATE: 07/19/2017 PULMONARY PROGRESS NOTE REFERRING PHYSICIAN: Tanisha Lebron MD SUBJECTIVE: The patient is lying in the bed, sleepy, arousable. Night was unremarkable. Mild cough. No sputum production. Back pain is little better. No nausea, no vomiting, no diarrhea. No leg pain or leg swelling. OBJECTIVE: GENERAL: In no acute distress. VITAL SIGNS: Temperature is 98.4, heart rate 68, respiratory rate is 20, blood pressure 110/79, pulse ox 94% on nasal cannula. HEENT: Moist mucous membrane. Crowded airway. NECK: Supple. No JVD. LUNGS: Has fair airflow with scattered rhonchi. Few wheezing. HEART: S1, S2. ABDOMEN: Soft, nontender, no organomegaly. EXTREMITIES: There is no edema. NEUROLOGIC: Awake, alert, and follows simple command. MEDICATIONS: She is on hydralazine 25 mg three times a day, Cardizem CD 180 mg daily, Coreg 25 mg twice a day, doxycycline 100 mg twice a day, DuoNeb q. 6 hours, Effient 5 mg daily, insulin coverage, potassium 20 mEq daily, digoxin 0.125 mg daily, Lasix 40 mg twice a day, lidocaine patch affected area daily, Lipitor 20 mg daily, Pepcid 40 mg at bedtime, Solu-Medrol 40 mg q.12h., Ultram 50 mg daily, Zestril 20 mg daily, Zoloft 100 mg daily. LABORATORY DATA: Shows INR 3.19. Sodium 138, potassium 3.9, chloride 101, bicarbonate 23, BUN 44, creatinine 1.4, glucose 196, calcium 9.7. Troponin 5.82. IMPRESSION AND PLAN: Status post myocardial infarction, chronic obstructive lung disease, depression, coronary artery disease, coronary stent, atrial fibrillation, diabetes, sleep apnea syndrome. From a pulmonary point of view, she is doing okay. We will decrease Solu-Medrol to 20 mg twice a day. Continue inhaled bronchodilator and antiplatelet therapy. Being followed by Cardiology. Gastric prophylaxis. Follow up INR in the morning. Thank you and we will follow with you. Rosina Gabriel MD [facility] # [id number]
[2017-07-20] MEDS: guaiFENesin 200 mg/10 ml Syrup UD PO PRN ×3 (04:04→22:56)
[2017-07-20 07:20] LABS: INR 2.02 (0.93-1.08); PROTHROMBIN TIME 23.6 SECONDS (9.4-12.5)
--- NOTE | 2017-07-20 07:25 | CP.PCM.PN ---
Subjective - Date & Time of Evaluation Date of Evaluation: 07/20/17 Time of Evaluation: 07:00 - Subjective Subjective: Stable on 2R. She feels better. No CP or SOB. + ambulation V/S noted. V. Paced/A. Sensed PE: Lungs: rhonchi Cor.: S1S2 Abd.: soft Ext.: no edema Neuro.: alert Labs 2/3 noted: trop 5.82. INR today pending. Objective - Vital Signs/Intake and Output Vital Signs (last 24 hours): Temp Pulse Resp BP Pulse Ox 97.9 F 71 18 133/66 97 07/20/17 06:00 07/20/17 06:00 07/20/17 06:00 07/20/17 06:00 07/20/17 06:00 Intake and Output: 07/20/17 07/20/17 06:59 18:59 Intake Total 600 Balance 600 - Medications Medications: Current Medications Albuterol/Ipratropium (Duoneb 3 Mg/0.5 Mg (3 Ml) Ud) 3 ml IH [id number] [facility] Last Admin: 07/20/17 01:04 Dose: 3 ml Atorvastatin Calcium (Lipitor) 20 mg PO DIN [facility] Last Admin: 07/19/17 17:55 Dose: 20 mg Carvedilol (Coreg) 25 mg PO BID [facility] Last Admin: 07/19/17 18:11 Dose: 25 mg Digoxin (Lanoxin) 0.125 mg PO 1400 [facility] Last Admin: 07/19/17 14:55 Dose: 0.125 mg Diltiazem HCl (Cardizem Cd) 180 mg PO DAILY [facility] Last Admin: 07/19/17 14:56 Dose: 180 mg Doxycycline Hyclate (Doryx) 100 mg PO Q12 [facility] PRN Reason: Protocol Last Admin: 07/19/17 21:08 Dose: 100 mg Famotidine (Pepcid) 40 mg PO HS [facility] Last Admin: 07/19/17 21:08 Dose: 40 mg Furosemide (Lasix) 40 mg IVP Q12 [facility] Last Admin: 07/19/17 21:09 Dose: 40 mg Guaifenesin (Robitussin) 200 mg PO Q4H PRN PRN Reason: Cough and congestion Last Admin: 07/20/17 04:04 Dose: 200 mg Home Med (Home Med) 1 unit PO DAILY [facility] Last Admin: 07/19/17 12:26 Dose: 1 unit Home Med (Home Med) 1 unit PO 1900 [facility] Last Admin: 07/19/17 19:38 Dose: 1 unit Hydralazine HCl (Apresoline) 25 mg PO TID [facility] Last Admin: 07/19/17 18:12 Dose: 25 mg Insulin Human Regular (Humulin R Low) 0 units SC ACHS [facility] PRN Reason: Protocol Last Admin: 07/19/17 22:41 Dose: Not Given Lidocaine (Lidoderm) 1 ea TD DAILY [facility] Last Admin: 07/19/17 09:49 Dose: 1 ea Lisinopril (Zestril) 20 mg PO DAILY [facility] Last Admin: 07/19/17 10:00 Dose: Not Given Methylprednisolone (Solu-Medrol) 20 mg IVP Q12 [facility] Last Admin: 07/19/17 22:40 Dose: Not Given Potassium Chloride (K-Dur 20 Meq Er Tab) 20 meq PO DAILY [facility] Last Admin: 07/19/17 09:48 Dose: 20 meq Prasugrel (Effient) 5 mg PO DAILY [facility] Last Admin: 07/19/17 09:54 Dose: 5 mg Sertraline HCl (Zoloft) 100 mg PO DAILY [facility] Last Admin: 07/19/17 09:48 Dose: 100 mg Tramadol HCl (Ultram) 50 mg PO DAILY [facility] - Labs Labs: 07/18/17 05:30 07/19/17 06:00 PT 37.6 SECONDS (9.4-12.5) H 07/19/17 06:00 INR 3.19 (0.93-1.08) H 07/19/17 06:00 APTT 46.9 Seconds (25.1-36.5) H 07/16/17 20:15 Assessment and Plan - Assessment and Plan (Free Text) Assessment: CP/SOB NSTEMI CHF, acute on chronic systolic CAD/[place]/CABG/PCIs/Severe LVD NSVT/ICD PAF HBP Diabetes HLD COPD Colon resection/ileostomy Chronic Pain Depression/Suicidal actions Plan INR pending. PO Lasix Monitor: I/O, labs, INR's, sats., etc. 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
[2017-07-20] MEDS: Insulin Reg-LOW-Coverage SC SCH ×4 (08:08→21:42)
[2017-07-20] MEDS: diltiaZEM 180 mg/24 Hours CD Cap PO SCH (09:44)
[2017-07-20] MEDS: Potassium Chloride 20 mEq ER Tab PO SCH (09:45)
[2017-07-20] MEDS: Lidocaine 5% Patch TD SCH (09:47)
[2017-07-20] MEDS: BIOTIN 1000MCG PO SCH (09:49)
[2017-07-20] MEDS: MethylPREDNISolone 40 mg Vial IVP SCH ×2 (09:50→21:01)
[2017-07-20] MEDS: Digoxin 125 mcg (0.125 mg) Tab PO SCH (14:52)
[2017-07-20] MEDS: Home Med 1 UNIT PO SCH (19:45)
--- NOTE | 2017-07-21 00:37 | PN ---
DATE: 07/20/2017 REFERRING PHYSICIAN: Dr. Lebron. SUBJECTIVE: The patient is lying in the bed, sleepy, arousable, could not sleep well last night. No headache, no rhinitis. Cough is better. No chest pain. No dysuria or leg pain or leg swelling. OBJECTIVE: GENERAL: In no acute distress. VITAL SIGNS: Temperature is 98, heart rate 61, respiratory rate is 16, blood pressure 124/59, pulse ox 96% room air. HEENT: Moist mucous membrane. Crowded airway. NECK: Supple. No JVD. LUNGS: A few scattered rhonchi. HEART: S1 and S2. ABDOMEN: Soft, nontender. No organomegaly. EXTREMITIES: No edema. NEUROLOGIC: Awake, alert, and follows simple command. MEDICATIONS: He is on hydralazine 25 mg three times a day, Benadryl 25 mg twice a day p.r.n., Cardizem CD 180 mg daily, Coreg 25 mg twice a day, doxycycline 100 mg twice a day, DuoNeb q. 6 hours, Effient 5 mg daily, insulin coverage, potassium 20 mEq daily, digoxin 0.125 mg daily, Lasix 40 mg daily, Lidoderm one patch at affected area, Lipitor 20 mg daily, Pepcid 40 mg daily, Robitussin 200 mg q.4h. p.r.n., Solu-Medrol 10 mg twice a day, tramadol 50 mg daily, Zestril 20 mg daily, Zoloft 100 mg daily. LABORATORY DATA: Reviewed and shows INR is 2.02. Blood sugar 201. IMPRESSION AND PLAN: Status post myocardial infarction, chronic obstructive lung disease, depression, coronary artery disease, coronary stent, atrial fibrillation, diabetes, and sleep apnea syndrome. Pulmonary point of view, doing okay. Keep head at 45 degrees. Sleep apnea precaution. Continue bronchodilator, gastric prophylaxis. We will restart anticoagulation. Thank you and we will follow with you. Rosina Gabriel MD
--- NOTE | 2017-07-21 01:25 | PN ---
DATE: SUBJECTIVE: Patient is a 72-year-old female. Patient seen and examined at the bedside. Complaining about cough and back pain. No nausea, vomiting, diarrhea. No hematuria or hematochezia. No swelling of the legs. No chest pain, no palpitation. No headache, no dizziness. No fever, no chills. Doing good ambulation. PHYSICAL EXAMINATION: VITAL SIGNS: Temperature 97.9, pulse 71, respiratory rate 18, blood pressure 133/66 and pulse oximetry 97%. HEENT: Head is normocephalic, atraumatic. Eyes; PERRLA. Extraocular muscles are intact. Conjunctivae are clear. Nose is patent. NECK: Supple. No carotid bruits. No JVD. No thyromegaly. CHEST: Bilaterally symmetrical. HEART: S1 and S2 positive. LUNGS: Clear to auscultation. ABDOMEN: Soft. Bowel sounds positive. No organomegaly. EXTREMITIES: No edema. No cyanosis. NEUROLOGIC: The patient is awake and alert. Moving all 4 extremities. No focal deficits. MEDICATIONS: DuoNeb, Lipitor, Coreg, Lanoxin, Cardizem, doxycycline, Pepcid, Lasix, Robitussin, hydralazine, Lidoderm, Zestril, Solu-Medrol, potassium, Effient, Zoloft, tramadol, LABORATORY DATA: White blood cells 11.3, hemoglobin 10.5, hematocrit 32.8, and platelets 265. Sodium 138, potassium 3.9, BUN 44, creatinine 1.4, and glucose 196. ASSESSMENT AND PLAN: Ms. Mallorie Francis is a 72-year-old female with leukocytosis, anemia, renal insufficiency, hyperglycemia, came with chest pain and shortness of breath, has non-ST elevation myocardial infarction, congestive heart failure - acute on chronic systolic, coronary artery disease, coronary artery bypass graft, severe left ventricular dysfunction, chronic obstructive pulmonary disease, colon resection/ileostomy, chronic pain syndrome, chronic back pain, depression, suicidal ideation and action. Now we admitted the patient, getting tapering dose of steroids. INR is therapeutic. Tapering dose of steroids. GI and DVT prophylaxis. Repeat labs. We will follow. Tanisha Lebron MD
[2017-07-21 06:46] LABS: INR 1.47 (0.93-1.08)
[2017-07-21 06:48] LABS: CALCIUM 9.9 mg/dL (8.4-10.5)
--- NOTE | 2017-07-21 08:01 | CP.PCM.PN ---
Subjective - Date & Time of Evaluation Date of Evaluation: 07/21/17 Time of Evaluation: 07:00 - Subjective Subjective: Stable on 2R. She feels better. No CP or SOB. + ambulation in room. V/S noted. V. Paced/A. Sensed PE: Lungs: rhonchi Cor.: S1S2 Abd.: soft Ext.: no edema Neuro.: alert Labs noted: INR = 1.47 (she got warf 3 mg yesterday) Objective - Vital Signs/Intake and Output Vital Signs (last 24 hours): Temp Pulse Resp BP Pulse Ox 98.0 F 60 20 132/65 96 07/21/17 05:48 07/21/17 05:48 07/21/17 05:48 07/21/17 05:48 07/21/17 05:48 Intake and Output: 07/21/17 07/21/17 06:59 18:59 Intake Total 1080 Output Total 2 Balance 1078 - Medications Medications: Current Medications Albuterol/Ipratropium (Duoneb 3 Mg/0.5 Mg (3 Ml) Ud) 3 ml IH [id number] [facility] Last Admin: 07/20/17 22:46 Dose: Not Given Atorvastatin Calcium (Lipitor) 20 mg PO DIN [facility] Last Admin: 07/20/17 17:17 Dose: 20 mg Carvedilol (Coreg) 25 mg PO BID [facility] Last Admin: 07/20/17 17:17 Dose: 25 mg Digoxin (Lanoxin) 0.125 mg PO 1400 [facility] Last Admin: 07/20/17 14:52 Dose: 0.125 mg Diltiazem HCl (Cardizem Cd) 180 mg PO DAILY [facility] Last Admin: 07/20/17 09:44 Dose: 180 mg Diphenhydramine HCl (Benadryl) 25 mg PO BID PRN PRN Reason: Allergy symptoms Last Admin: 07/20/17 22:57 Dose: 25 mg Doxycycline Hyclate (Doryx) 100 mg PO Q12 [facility] PRN Reason: Protocol Last Admin: 07/20/17 21:06 Dose: 100 mg Famotidine (Pepcid) 40 mg PO HS [facility] Last Admin: 07/20/17 21:01 Dose: 40 mg Furosemide (Lasix) 40 mg PO DAILY [facility] Last Admin: 07/20/17 09:43 Dose: 40 mg Guaifenesin (Robitussin) 200 mg PO Q4H PRN PRN Reason: Cough and congestion Last Admin: 07/20/17 22:56 Dose: 200 mg Home Med (Home Med) 1 unit PO DAILY [facility] Last Admin: 07/20/17 09:49 Dose: 1 unit Home Med (Home Med) 1 unit PO 1900 [facility] Last Admin: 07/20/17 19:45 Dose: 1 unit Hydralazine HCl (Apresoline) 25 mg PO TID [facility] Last Admin: 07/20/17 18:50 Dose: 25 mg Insulin Human Regular (Humulin R Low) 0 units SC ACHS [facility] PRN Reason: Protocol Last Admin: 07/20/17 21:42 Dose: Not Given Lidocaine (Lidoderm) 1 ea TD DAILY [facility] Last Admin: 07/20/17 09:47 Dose: 1 ea Lisinopril (Zestril) 20 mg PO DAILY [facility] Last Admin: 07/20/17 09:44 Dose: 20 mg Methylprednisolone (Solu-Medrol) 10 mg IVP Q12 [facility] Last Admin: 07/20/17 21:01 Dose: 10 mg Potassium Chloride (K-Dur 20 Meq Er Tab) 20 meq PO DAILY [facility] Last Admin: 07/20/17 09:45 Dose: 20 meq Prasugrel (Effient) 5 mg PO DAILY [facility] Last Admin: 07/20/17 09:45 Dose: 5 mg Sertraline HCl (Zoloft) 100 mg PO DAILY [facility] Last Admin: 07/20/17 09:45 Dose: 100 mg Tramadol HCl (Ultram) 50 mg PO DAILY [facility] Last Admin: 07/20/17 09:46 Dose: 50 mg Warfarin Sodium (Coumadin) 5 mg PO ONCE ONE PRN Reason: Protocol Stop: 07/21/17 10:01 - Labs Labs: 07/18/17 05:30 07/21/17 05:50 PT 17.0 SECONDS (9.4-12.5) H 07/21/17 05:50 INR 1.47 (0.93-1.08) H 07/21/17 05:50 APTT 46.9 Seconds (25.1-36.5) H 07/16/17 20:15 Assessment and Plan - Assessment and Plan (Free Text) Assessment: CP/SOB NSTEMI CHF, acute on chronic systolic CAD/[place]/CABG/PCIs/Severe LVD NSVT/ICD PAF HBP Diabetes HLD COPD Colon resection/ileostomy Chronic Pain Depression/Suicidal actions Plan Warfarin 5 mg today. Daily INR's OOB as lou. TCU Eval. 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
[2017-07-21] MEDS: Insulin Reg-LOW-Coverage SC SCH ×4 (08:22→23:12)
[2017-07-21] MEDS: Albuterol-Ipratrop 3 mg / 0.5 (3 ml) UD IH SCH ×3 (08:41→19:00)
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
--- NOTE | 2017-07-21 09:13 | PN ---
DATE: 07/18/2017 SUBJECTIVE: The patient seen and examined at the bedside, looking better, still having occasionally chest pain, occasionally shortness of breath. No nausea, vomiting, or diarrhea. Tolerating food very well. Having back pain also. Only Lidoderm patch is not helping, has got one dose of Percocet, but after that, she started itching. Dr. Gabriel told the nursing staff to put a heating pad. PHYSICAL EXAMINATION: VITAL SIGNS: Temperature 98.1, pulse 85, respiratory rate 19, blood pressure 100/54, pulse oximetry 98. HEENT: Head normocephalic and atraumatic. Eyes, PERRLA. Extraocular muscles intact. Conjunctivae clear. Nose patent. Mucous membranes are moist. NECK: Supple. No carotid bruits, JVD or thyromegaly. CHEST: Bilaterally symmetrical. HEART: S1 and S2 positive. LUNGS: Clear to auscultation. ABDOMEN: Soft. Bowel sounds positive. No organomegaly. EXTREMITIES: No edema. No cyanosis. NEUROLOGIC: The patient is awake and alert. Moving all 4 extremities. No focal deficit. MEDICATIONS: DuoNeb, Lipitor, Coreg, Lanoxin, Cardizem, doxycycline, Pepcid, Lasix, hydralazine, Lidoderm, Zestril, methylprednisolone, potassium, Effient, Zoloft. LABORATORY DATA: White blood cells 11.3, hemoglobin 10.5, hematocrit 32.8, platelets 265. Sodium 137, potassium 4.2, BUN 34, creatinine 1.4, glucose 207. ASSESSMENT AND PLAN: The patient is a 72-year-old lady with leukocytosis, anemia, renal insufficiency, hyperglycemia, has [id number] myocardial infarction, chest pain, shortness of breath; congestive heart failure, acute on chronic, systolic; coronary artery disease, history of myocardial infarction, coronary artery bypass graft, severe left ventricular dysfunction, diabetes, hypercholesterolemia, chronic obstructive pulmonary disease, colon resection/ileostomy, chronic pain syndrome, depression, history of suicidal ideation and attempts. Hold warfarin, routine INR. For back pain, the patient got Lidoderm patch, it was not helping; then, one dose of Percocet given, she started itchiness, then we will hold the Percocet. We will give heating pad. INR is still high, 4.26. We will repeat PT/INR, out of bed, physical therapy. We will follow up. Tanisha Lebron MD
[2017-07-21] MEDS: diltiaZEM 180 mg/24 Hours CD Cap PO SCH (09:32)
[2017-07-21] MEDS: Potassium Chloride 20 mEq ER Tab PO SCH (09:32)
[2017-07-21] MEDS: MethylPREDNISolone 40 mg Vial IVP SCH ×2 (09:34→23:10)
[2017-07-21] MEDS: BIOTIN 1000MCG PO SCH (09:35)
[2017-07-21] MEDS: Lidocaine 5% Patch TD SCH (09:35)
[2017-07-21] MEDS: Digoxin 125 mcg (0.125 mg) Tab PO SCH (13:41)
--- NOTE | 2017-07-21 14:49 | PN ---
DATE: 07/21/2017 REFERRING PHYSICIAN: Dr. Lebron. SUBJECTIVE: She is lying in bed, head at 45 degrees. Night was unremarkable, could not sleep well. No nausea. No vomiting. No diarrhea. No leg pain or leg swelling. OBJECTIVE: GENERAL: In no acute distress. VITAL SIGNS: Temperature 98, heart rate is 60, respiratory rate is 20, blood pressure 132/65, pulse ox 96% on nasal cannula. HEENT: Moist mucous membrane. Crowded airway. NECK: Supple. No JVD. LUNGS: Fair airflow with a few rhonchi. HEART: S1, S2. ABDOMEN: Soft, nontender, no organomegaly. EXTREMITIES: No edema. NEUROLOGIC: Awake, alert, and follows simple command. MEDICATIONS: She is on hydralazine 25 mg three times a day, Benadryl 25 mg twice a day p.r.n., Cardizem CD 180 mg daily, Coreg 25 mg twice a day, doxycycline 100 mg twice a day, DuoNeb q. 6 hours, Effient 5 mg daily, potassium 20 mEq daily, digoxin 0.125 mg daily, Lasix 40 mg daily, lidocaine patch at affected area, Lipitor 20 mg daily, Pepcid 40 mg daily, Robitussin 200 mg q. 4 hours p.r.n., Solu-Medrol 10 mg q. 12 hours, Ultram 50 mg daily, Zestril 20 mg daily, Zoloft 100 mg daily. LABORATORY DATA: Shows INR today is 1.47. Sodium 140, potassium 4.4, chloride 100, bicarbonate 27. BUN 48, creatinine 1.3. Glucose 151. Calcium is 9.9. IMPRESSION AND PLAN: Status post myocardial infarction, chronic obstructive lung disease, depression, coronary artery disease, coronary stent, atrial fibrillation, diabetes, sleep apnea syndrome. From a pulmonary point of view, doing okay. Continue bronchodilator. Keep head at 45 degrees. May give Ambien 2.5 mg at bedtime p.r.n. for sleep. Sleep apnea precautions. Anticoagulation. Gastric prophylaxis. Cardiology followup. Social service followup. Rosina Gabriel MD [facility] # [id number]
[2017-07-21] MEDS: guaiFENesin 200 mg/10 ml Syrup UD PO PRN ×2 (17:21→23:08)
[2017-07-21] MEDS: Home Med 1 UNIT PO SCH (23:12)
[2017-07-22] MEDS: Albuterol-Ipratrop 3 mg / 0.5 (3 ml) UD IH SCH ×3 (01:11→14:22)
--- NOTE | 2017-07-22 02:24 | PN ---
DATE: SUBJECTIVE: Patient is seen and examined at the bedside, lying comfortable. Feeling congested. Coughing, but a little bit better. Night was unremarkable. Could not sleep last night. No nausea, vomiting, or diarrhea. No hematuria or hematochezia. No swelling of the leg. No chest pain or palpitation. No headache or dizziness. PHYSICAL EXAMINATION: VITAL SIGNS: Temperature 98, heart rate 60, respiratory rate 20, blood pressure 138/65, pulse oximetry of 96% on nasal canula. HEENT: Head: Normocephalic, atraumatic. Eyes: PERRLA. Extraocular muscles are intact. Conjunctivae clear. Nose: Patent. Mucous membranes are moist. NECK: Supple. No carotid bruits, JVD, or thyromegaly. CHEST: Bilaterally symmetrical. HEART: S1, S2 positive. LUNGS: Clear to auscultation. ABDOMEN: Soft. No organomegaly. EXTREMITIES: No edema. No cyanosis. NEUROLOGIC: Patient is awake and alert. Moving all four extremities. No focal deficits. MEDICATIONS: Hydralazine, Benadryl, Cardizem, Coreg, doxycycline, DuoNeb, Effient, potassium, digoxin, Lasix, lidocaine, Lipitor, Robitussin, Solu-Medrol, Zestril, and Zoloft. LABORATORY DATA: INR is 1.47. Sodium 140, potassium 4.4, BUN 40, creatinine 1.3, glucose 151, calcium 9.9. ASSESSMENT AND PLAN: Ms. Malolrie Francis is a 72-year-old lady with multiple medical problem, status post myocardial infarction. [place] is on the case. Chronic obstructive lung disease, depression, history of suicidal ideation and attempt, coronary artery disease, coronary stent, atrial fibrillation, diabetes mellitus, sleep apnea syndrome, chronic obstructive pulmonary disease.. Continue bronchodilator. Keep head elevated at [address] Gabriel gave Ambien 2.5 mg on p.r.n. basis for patient's sleep, DuoNeb q. 6 hours. Gastric and deep venous thrombosis prophylaxis. Gastrointestinal and deep venous thrombosis prophylaxis. Social workers are working on patient's placement because patient is homeless. She is living in a car and that in this weather that is not appropriate for her medical condition. We will follow up. Tanisha Lebron MD [facility]
[2017-07-22 04:42] VITALS: RESP 19; O2SAT 99
[2017-07-22] MEDS: guaiFENesin 200 mg/10 ml Syrup UD PO PRN ×2 (05:42→15:03)
[2017-07-22 07:58] LABS: INR 1.85 (0.93-1.08); PROTHROMBIN TIME 21.5 SECONDS (9.4-12.5)
--- NOTE | 2017-07-22 08:38 | CP.PCM.PN ---
Subjective - Date & Time of Evaluation Date of Evaluation: 07/22/17 Time of Evaluation: 07:00 - Subjective Subjective: Stable on 2R. She feels better. No CP or SOB. + ambulation in room. V/S noted. V. Paced/A. Sensed PE: Lungs: rhonchi Cor.: S1S2 Abd.: soft Ext.: no edema Neuro.: alert Labs noted: INR = 1.85 (she got warf 5 mg yesterday) Objective - Vital Signs/Intake and Output Vital Signs (last 24 hours): Temp Pulse Resp BP Pulse Ox 97.8 F 58 L 19 134/67 99 07/22/17 06:00 07/22/17 06:00 07/22/17 06:00 07/22/17 06:00 07/22/17 06:00 Intake and Output: 07/22/17 07/22/17 06:59 18:59 Intake Total 120 Output Total 0 Balance 120 - Medications Medications: Current Medications Albuterol/Ipratropium (Duoneb 3 Mg/0.5 Mg (3 Ml) Ud) 3 ml IH [id number] [facility] Last Admin: 07/22/17 08:00 Dose: 3 ml Atorvastatin Calcium (Lipitor) 20 mg PO DIN [facility] Last Admin: 07/21/17 16:51 Dose: 20 mg Carvedilol (Coreg) 25 mg PO BID [facility] Last Admin: 07/21/17 17:16 Dose: 25 mg Digoxin (Lanoxin) 0.125 mg PO 1400 [facility] Last Admin: 07/21/17 13:41 Dose: 0.125 mg Diltiazem HCl (Cardizem Cd) 180 mg PO DAILY [facility] Last Admin: 07/21/17 09:32 Dose: 180 mg Diphenhydramine HCl (Benadryl) 25 mg PO BID PRN PRN Reason: Allergy symptoms Last Admin: 07/21/17 23:08 Dose: 25 mg Doxycycline Hyclate (Doryx) 100 mg PO Q12 [facility] PRN Reason: Protocol Last Admin: 07/21/17 23:09 Dose: 100 mg Famotidine (Pepcid) 40 mg PO HS [facility] Last Admin: 07/21/17 23:08 Dose: 40 mg Furosemide (Lasix) 40 mg PO DAILY [facility] Last Admin: 07/21/17 09:31 Dose: 40 mg Guaifenesin (Robitussin) 200 mg PO Q4H PRN PRN Reason: Cough and congestion Last Admin: 07/22/17 05:42 Dose: 200 mg Home Med (Home Med) 1 unit PO DAILY [facility] Last Admin: 07/21/17 09:35 Dose: 1 unit Home Med (Home Med) 1 unit PO 1900 [facility] Last Admin: 07/21/17 23:12 Dose: 1 unit Hydralazine HCl (Apresoline) 25 mg PO TID [facility] Last Admin: 07/21/17 17:16 Dose: 25 mg Insulin Human Regular (Humulin R Low) 0 units SC ACHS [facility] PRN Reason: Protocol Last Admin: 07/21/17 23:12 Dose: Not Given Lidocaine (Lidoderm) 1 ea TD DAILY [facility] Last Admin: 07/21/17 09:35 Dose: 1 ea Lisinopril (Zestril) 20 mg PO DAILY [facility] Last Admin: 07/21/17 09:32 Dose: 20 mg Methylprednisolone (Solu-Medrol) 10 mg IVP Q12 [facility] Last Admin: 07/21/17 23:10 Dose: 10 mg Potassium Chloride (K-Dur 20 Meq Er Tab) 20 meq PO DAILY [facility] Last Admin: 07/21/17 09:32 Dose: 20 meq Prasugrel (Effient) 5 mg PO DAILY [facility] Last Admin: 07/21/17 09:33 Dose: 5 mg Sertraline HCl (Zoloft) 100 mg PO DAILY [facility] Last Admin: 07/21/17 09:32 Dose: 100 mg Tramadol HCl (Ultram) 50 mg PO DAILY [facility] Last Admin: 07/21/17 09:33 Dose: 50 mg Zolpidem Tartrate (Ambien) 2.5 mg PO HS PRN; Protocol PRN Reason: Insomnia Last Admin: 07/21/17 23:09 Dose: 2.5 mg - Labs Labs: 07/18/17 05:30 07/21/17 05:50 PT 21.5 SECONDS (9.4-12.5) H 07/22/17 07:30 INR 1.85 (0.93-1.08) H 07/22/17 07:30 APTT 46.9 Seconds (25.1-36.5) H 07/16/17 20:15 Assessment and Plan - Assessment and Plan (Free Text) Assessment: CP/SOB NSTEMI CHF, acute on chronic systolic CAD/IN/CABG/PCIs/Severe LVD NSVT/ICD PAF HBP Diabetes HLD COPD Colon resection/ileostomy Chronic Pain Depression/Suicidal actions Plan Warfarin 4 mg today. Daily INR's OOB as lou. TCU Eval. Secretary Of State Evaluation.
[2017-07-22] MEDS: diltiaZEM 180 mg/24 Hours CD Cap PO SCH (09:01)
[2017-07-22] MEDS: Potassium Chloride 20 mEq ER Tab PO SCH (09:02)
[2017-07-22] MEDS: MethylPREDNISolone 40 mg Vial IVP SCH (09:03)
[2017-07-22] MEDS: Insulin Reg-LOW-Coverage SC SCH ×3 (09:03→17:25)
[2017-07-22] MEDS: Lidocaine 5% Patch TD SCH (09:04)
[2017-07-22 09:08] LABS: CALCIUM 9.7 mg/dL (8.4-10.5)
[2017-07-22] MEDS: BIOTIN 1000MCG PO SCH (09:09)
[2017-07-22 12:40] VITALS: BP 124/60; TEMP 97.9
[2017-07-22] MEDS: Digoxin 125 mcg (0.125 mg) Tab PO SCH (14:59)
--- NOTE | 2017-07-22 15:02 | PN ---
DATE: SUBJECTIVE: The patient is seen and examined at the bedside, looking comfortable, got physical therapy. No nausea or vomiting. Congestion is getting better. Shortness of breath is getting better. Used to ambulate in her room, but today she is walking around with physical therapy. No chest pain, no palpitations, no hematuria, no hematochezia. PHYSICAL EXAMINATION: VITAL SIGNS: Temperature 97.8, pulse 58, respiratory rate 19, blood pressure 134/57, pulse oximetry 99. HEENT: Head: Normocephalic and atraumatic. Eyes: PERRLA. Extraocular muscles intact. Conjunctivae clear. Nose patent. Mucous membrane moist. NECK: Supple. No carotid bruit, JVD or thyromegaly. CHEST: Bilaterally symmetrical. HEART: S1, S2 positive. LUNGS: Clear to auscultation. ABDOMEN: Soft. Bowel sounds positive. No organomegaly. EXTREMITIES: No edema, no cyanosis. NEUROLOGIC: The patient is awake, alert. Moving all 4 extremities. No focal deficits. MEDICATIONS: DuoNeb, Lipitor, Coreg, Lanoxin, Cardizem, Benadryl, doxycycline, Pepcid, Lasix, Robitussin, hydralazine, Lidoderm. Zestril, potassium, Effient, Zoloft, tramadol, Ambien. LABORATORY DATA: White blood cell is 11.3, hemoglobin 10.5, hematocrit 32.6, platelet 265. Sodium 140, potassium 4.4, BUN 48, creatinine 1.3, glucose of 151. ASSESSMENT AND PLAN: Ms. Mallorie Francis is a 72-year-old lady with leukocytosis, anemia, renal insufficiency and hyperglycemia, came with chest pain; shortness of breath, improved; non-ST elevation myocardial infarction; congestive heart failure, [id number] systolic; coronary artery disease, status post coronary artery bypass grafting; status post myocardial infarction; diabetes mellitus; chronic obstructive pulmonary disease; colon resection/ileostomy; chronic pain syndrome; depression with suicidal attempts , getting Coumadin. We will continue checking daily PT/INR, physical therapy, Patient is homeless, trying to do either tcu or rehab, waiting for Physical Therapy input, their recommendation; history of atrial fibrillation and sleep apnea syndrome, continue bronchodilators; insomnia; Ambien 2.5 mg p.r.n., gastric and deep venous thrombosis prophylaxis. Enrollment Representative is on the case, social workers are working. We will follow. Tanisha Lebron MD MTDJoselin
[2017-07-22 15:04] VITALS: PULSE 64
== END 2017-07-22 18:23 | DRG 280 ==
LOC: ED 17:51 → ERH 21:36 → 2RSO 07-17 15:50
PROVIDERS: ADMIT Internal Medicine; ATTEND Internal Medicine
DX: I21.4 Non-ST elevation (NSTEMI) myocardial infarction (principal); I50.23 Acute on chronic systolic (congestive) heart failure; I47.2 Ventricular tachycardia; D68.9 Coagulation defect, unspecified; E11.65 Type 2 diabetes mellitus with hyperglycemia; E83.52 Hypercalcemia; F33.1 Major depressive disorder, recurrent, moderate; I47.1 Supraventricular tachycardia; J44.1 Chronic obstructive pulmonary disease with (acute) exacerbation; R45.851 Suicidal ideations; I42.9 Cardiomyopathy, unspecified; I11.0 Hypertensive heart disease with heart failure; D64.9 Anemia, unspecified; D72.829 Elevated white blood cell count, unspecified; E78.00 Pure hypercholesterolemia, unspecified; E78.5 Hyperlipidemia, unspecified; F17.210 Nicotine dependence, cigarettes, uncomplicated; F41.9 Anxiety disorder, unspecified; G47.30 Sleep apnea, unspecified; G89.4 Chronic pain syndrome; I25.10 Atherosclerotic heart disease of native coronary artery without angina pectoris; I25.2 Old myocardial infarction; I48.0 Paroxysmal atrial fibrillation; N28.9 Disorder of kidney and ureter, unspecified; R79.1 Abnormal coagulation profile; Z59.0 Homelessness; Z79.899 Other long term (current) drug therapy; Z86.711 Personal history of pulmonary embolism; Z86.73 Personal history of transient ischemic attack (TIA), and cerebral infarction without residual deficits; Z95.0 Presence of cardiac pacemaker; Z95.1 Presence of aortocoronary bypass graft; Z95.5 Presence of coronary angioplasty implant and graft; Z95.810 Presence of automatic (implantable) cardiac defibrillator; Z98.1 Arthrodesis status; Z88.8 Allergy status to other drugs, medicaments and biological substances; Z90.49 Acquired absence of other specified parts of digestive tract

== ENCOUNTER 2017-08-04 11:05 | Inpatient (IN) | payer MEDICARE, MEDICAID ==
[2017-08-04 11:23] VITALS: BMI 20.9
[2017-08-04] MEDS ORDERED: Nitroglycerin 2% Ointment Foilpak UD TOP STA (11:53)
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
[2017-08-04 13:39] LABS: BASO # 0.01 K/mm3 (0.0-2.0); BASO % 0.1 % (0.0-3.0); EOS # 0.1 (0.0-0.7); EOS % 0.5 % (1.5-5.0); GRAN % 83.4 % (50.0-68.0); HEMOGLOBIN 10.7 g/dL (12.0-16.0); LYMPH # 0.9 (1.2-3.4); LYMPH % 9.8 % (22.0-35.0); MEAN CELL VOLUME 91.7 fl (80.0-105.0); MEAN CORPUSCULAR HEMOGLOBIN 29.7 pg (25.0-35.0); MEAN CORPUSCULAR HGB CONC 32.4 g/dl (31.0-37.0); MONO # 0.6 (0.1-0.6); MONO % 6.2 % (1.0-6.0); RBC 3.6 10^6/uL (3.5-6.1); RED CELL DISTRIBUTION WIDTH 15.7 % (11.5-14.5); WHITE BLOOD COUNT 9.6 10^3/ul (4.5-11.0)
[2017-08-04 13:53] LABS: ALB/GLOB RATIO 1.4 (1.1-1.8); ALBUMIN 3.7 g/dL (3.0-4.8); ALT/SGPT 35 U/L (7-56); AST/SGOT 36 U/L (14-36); BLOOD UREA NITROGEN 23 mg/dL (7-21); CALCIUM 9.9 mg/dL (8.4-10.5); GFR AFRICAN-AMERICAN > 60; GFR NON-AFRICAN AMERICAN 55; MAGNESIUM 1.7 mg/dL (1.7-2.2)
[2017-08-04 13:57] LABS: B-TYPE NATRIURETIC PEPTIDE 9020 pg/mL (0-450)
--- NOTE | 2017-08-04 13:57 | RAD ---
HISTORY: chest pain COMPARISON: 07/16/2017 FINDINGS: LUNGS: Vascular congestion and minimal bibasilar infiltrates PLEURA: No significant pleural effusion identified, no pneumothorax apparent. CARDIOVASCULAR: Moderate cardiomegaly. Pacemaker OSSEOUS STRUCTURES: Sternal wires VISUALIZED UPPER ABDOMEN: Normal. OTHER FINDINGS: None. IMPRESSION: Moderate cardiomegaly with vascular congestion and minimal bibasilar infiltrates similar to previous study
[2017-08-04 14:00] LABS: INR 1.61 (0.93-1.08); PARTIAL THROMBOPLASTIN TIME 36.7 Seconds (25.1-36.5); PROTHROMBIN TIME 18.7 SECONDS (9.4-12.5)
[2017-08-04 14:11] LABS: TROPONIN I 1.24 ng/mL
[2017-08-04 15:59] LABS: URINE BILIRUBIN NEGATIVE (NEGATIVE); URINE BLOOD NEGATIVE (NEGATIVE); URINE GLUCOSE (UA) NEGATIVE (NEGATIVE); URINE LEUKOCYTE ESTERASE SMALL Leu/uL (NEGATIVE); URINE NITRATE NEGATIVE (NEGATIVE); URINE PROTEIN NEGATIVE mg/dL (<30 mg/dL); URINE UROBILINOGEN 0.2 E.U./dL (<1 E.U./dL)
[2017-08-04 16:11] LABS: URINE APPEARANCE CLEAR (CLEAR); URINE COLOR YELLOW (YELLOW)
[2017-08-04 17:02] LABS: URINE BACTERIA LARGE (NEG)
[2017-08-04] MEDS: Albuterol-Ipratrop 3 mg / 0.5 (3 ml) UD IH SCH (21:05)
--- NOTE | 2017-08-04 21:23 | CARD ---
APPROVED REPORT EKG Measurement Heart [id number] <Conclusion> Electronic ventricular pacemaker
[2017-08-04] MEDS: Lidocaine 5% Patch TD SCH (22:12)
[2017-08-05] MEDS: Albuterol-Ipratrop 3 mg / 0.5 (3 ml) UD IH SCH ×4 (04:10→20:12)
--- NOTE | 2017-08-05 06:19 | CON ---
DATE: 08/04/2017 PULMONARY CONSULTATION REFERRING PHYSICIAN: Dr. Lebron. REASON FOR CONSULTATION: Chronic lung disease, cough, shortness of breath. HISTORY OF PRESENT ILLNESS: This is a 72-year-old female well known to me from previous admission, was at subacute facility where she developed mediastinal and left-sided chest pain, recently also had a fall, has some cough and shortness of breath. No nausea, no vomiting. No diarrhea. No leg pain or leg swelling. PAST MEDICAL HISTORY: Significant for coronary artery disease with coronary stent; cardiomyopathy with decreased LV function; may have sleep apnea syndrome, but refused sleep study; chronic obstructive lung disease; history of TIAs; renal insufficiency; diabetes; history of ileostomy, which has been reversed; history of colon resection. FAMILY HISTORY: No significant cardiopulmonary disease reported. SOCIAL HISTORY: Positive history of smoking. Denies any alcohol use. ALLERGIES: TO PLAVIX. MEDICATIONS AT HOME: She is on Lipitor, albuterol/Atrovent nebulizer q. 6 hours, Benadryl p.r.n. basis, digoxin 0.125 mg daily, Coreg 25 mg daily, Lasix 40 mg daily, Pepcid 40 mg daily, was on doxycycline twice a day, diltiazem CD 180 mg daily, Ambien 2.5 mg daily, Coumadin usually gets 5 mg daily, Zoloft 100 mg daily, potassium supplement, Zestril 20 mg daily, Lidoderm patch to the affected area, insulin coverage, Robitussin p.r.n. basis, tramadol p.r.n. basis, also on tapered dose of prednisone, hydralazine 25 mg three times a day, she is supposed to be on Effient, I think she is taking from home. REVIEW OF SYSTEMS: No headache. Mild rhinitis. Has a cough, not much sputum production, chest pain. No abdominal pain. No dysuria. No leg pain or leg swelling. PHYSICAL EXAMINATION: GENERAL: Lying in the bed, no acute distress. VITAL SIGNS: Temperature is 98, heart rate is 80, respiratory rate is 20, blood pressure 102/51, pulse ox of 95% on room air. HEENT: Moist mucous membrane. Crowded airway. Mallampati score is IV. NECK: Supple. No JVD. LUNGS: Has a few crackles, scattered rhonchi. HEART: S1 and S2. ABDOMEN: Soft, nontender, no organomegaly. EXTREMITIES: There is no edema. Has some sacral area skin scratch. NEUROLOGIC: Awake and alert, and follows simple commands. LABORATORY DATA: Shows hemoglobin 10.7, hematocrit 33.0, WBC 9.6, platelet is 209. INR 1.61. PTT 37. Sodium 140, potassium 4.3, chloride 106, bicarbonate 22, BUN 23, creatinine 1.0, glucose is 165, calcium 9.9, magnesium 1.7. Total bili 0.5, AST 36, ALT 35, alk phos is 82. LDH is 325. Troponin 1.24. ProBNP 9020. Albumin is 3.7. Urinalysis shows wbc 5 to 10, rbc 2 to 5. Had a chest x-ray done, which shows cardiomegaly with vascular congestion and basilar infiltrate. IMPRESSION AND PLAN: Non-Q myocardial infarction, history of cardiomyopathy, coronary artery disease, history of coronary stent. I am not sure if she is compliant with platelet inhibitors? Also chronic obstructive lung disease, active smoker, depression, atrial fibrillation, diabetes, component of sleep apnea syndrome. I agree with Dr. Lebron with the present management. We will continue inhaled bronchodilator, supplemental oxygen. Keep head 45 degrees. Sleep apnea precaution. Restart Effient 5 mg daily. Cardiology consult. Gastric prophylaxis. Continue anticoagulation. Follow up labs the morning. Thank you and we will follow with you. Rosina Gabriel MD
[2017-08-05 06:54] LABS: HEMOGLOBIN 10.4 g/dL (12.0-16.0); MEAN CORPUSCULAR HEMOGLOBIN 29.2 pg (25.0-35.0); MEAN CORPUSCULAR HGB CONC 31.4 g/dl (31.0-37.0); MEAN PLATELET VOLUME 9.5 fl (7.0-11.0); RBC 3.56 10^6/uL (3.5-6.1); RED CELL DISTRIBUTION WIDTH 15.6 % (11.5-14.5); WHITE BLOOD COUNT 7.1 10^3/ul (4.5-11.0)
--- NOTE | 2017-08-05 07:41 | CP.PCM.PN ---
Subjective - Date & Time of Evaluation Date of Evaluation: 08/05/17 Time of Evaluation: 07:41 - Subjective Subjective: patient was seen because she complained of back pain and requested a pain medication for it. Has no other complaints. Medical record was reviewed. This 72 year old woman was admitted with chest pain, sob, diaphoresis, nausea, fatigue. Has PMH of DM II, COPD, CAD, coronary stents, anxiety, depression, ileostomy. Objective - Vital Signs/Intake and Output Vital Signs (last 24 hours): Temp Pulse Resp BP Pulse Ox 98.7 F 71 18 101/56 L 97 08/05/17 06:00 08/05/17 06:00 08/05/17 06:00 08/05/17 06:00 08/05/17 06:00 Intake and Output: 08/05/17 08/05/17 06:59 18:59 Intake Total 580 Balance 580 - Medications Medications: Current Medications Albuterol/Ipratropium (Duoneb 3 Mg/0.5 Mg (3 Ml) Ud) 3 ml IH [id number] [facility] Last Admin: 08/05/17 04:10 Dose: 3 ml Atorvastatin Calcium (Lipitor) 20 mg PO DIN [facility] Carvedilol (Coreg) 25 mg PO BID [facility] Digoxin (Digoxin) 0.125 mg PO 1400 [facility] Diltiazem HCl (Cardizem Cd) 180 mg PO DAILY [facility] Diphenhydramine HCl (Benadryl) 25 mg PO BID PRN PRN Reason: Allergy symptoms Famotidine (Pepcid) 40 mg PO HS [facility] Last Admin: 08/04/17 22:11 Dose: 40 mg Furosemide (Lasix) 40 mg PO DAILY [facility] Guaifenesin (Robitussin) 200 mg PO Q4H PRN PRN Reason: Cough and congestion Hydralazine HCl (Apresoline) 25 mg PO TID [facility] Lidocaine (Lidoderm) 1 ea TD DAILY [facility] Last Admin: 08/04/17 22:12 Dose: 1 ea Lisinopril (Zestril) 20 mg PO DAILY [facility] Potassium Chloride (K-Dur 20 Meq Er Tab) 20 meq PO DAILY [facility] Prasugrel (Effient) 5 mg PO DAILY [facility] Prednisone (Prednisone Tab) 10 mg PO DAILY [facility] Sertraline HCl (Zoloft) 100 mg PO DAILY [facility] Zolpidem Tartrate (Ambien) 2.5 mg PO HS PRN; Protocol PRN Reason: Insomnia - Labs Labs: 08/05/17 06:00 PT 18.7 SECONDS (9.4-12.5) H 08/04/17 13:30 INR 1.61 (0.93-1.08) H 08/04/17 13:30 APTT 36.7 Seconds (25.1-36.5) H 08/04/17 13:30 - Constitutional Appears: Well, No Acute Distress - Head Exam Head Exam: ATRAUMATIC, NORMAL INSPECTION, NORMOCEPHALIC - Eye Exam Eye Exam: Normal appearance - ENT Exam ENT Exam: Normal External Ear Exam - Neck Exam Neck Exam: Normal Inspection - Respiratory Exam Respiratory Exam: NORMAL BREATHING PATTERN - Cardiovascular Exam Cardiovascular Exam: absent: JVD - GI/Abdominal Exam GI & Abdominal Exam: absent: Distended - Rectal Exam Rectal Exam: Deferred - Exam Additional comments: Deferred. - Extremities Exam Extremities Exam: Normal Inspection - Back Exam Back Exam: NORMAL INSPECTION - Neurological Exam Neurological Exam: Alert, Oriented x3 - Psychiatric Exam Psychiatric exam: Normal Affect, Normal Mood - Skin Skin Exam: Normal Color Assessment and Plan - Assessment and Plan (Free Text) Assessment: Low back pain. DM II. CAD. COPD. Anxiety. Depression. Hx coronary stent placement. Plan: Percocet I PO x 1. Continue present management.
[2017-08-05 07:44] LABS: ALB/GLOB RATIO 1.3 (1.1-1.8); ALBUMIN 3.4 g/dL (3.0-4.8); ALT/SGPT 36 U/L (7-56); AST/SGOT 73 U/L (14-36); BLOOD UREA NITROGEN 19 mg/dL (7-21); CALCIUM 9.7 mg/dL (8.4-10.5); GFR AFRICAN-AMERICAN > 60; GFR NON-AFRICAN AMERICAN > 60; TROPONIN I 8.09 ng/mL
[2017-08-05] MEDS: Lidocaine 5% Patch TD SCH (09:31)
[2017-08-05] MEDS: Potassium Chloride 20 mEq ER Tab PO SCH (09:32)
[2017-08-05] MEDS: diltiaZEM 180 mg/24 Hours CD Cap PO SCH (09:43)
[2017-08-05] MEDS ORDERED: Lidocaine 5% Patch TD SCH (10:00)
--- NOTE | 2017-08-05 12:31 | CON ---
DATE: 08/05/2017 INDICATIONS: Chest pain, myocardial infarction. HISTORY OF PRESENT ILLNESS: This is a 72-year-old woman, well known from recent [facility] admissions, who was at [facility] where she experienced chest pain early Friday morning. She was brought to the emergency room and admitted to telemetry. Today, she has milder chest discomfort, which was initially severe yesterday. The troponins are elevated. She is not short of breath. There is no orthopnea, PND, syncope, presyncope, lightheadedness, dizziness, vertigo, palpitations, edema, claudication. PAST MEDICAL HISTORY: Her past medical history is complex. She has known coronary artery, which is severe with severe LV dysfunction. She has had coronary bypass surgery, myocardial infarctions, coronary interventions. The last was a complex coronary intervention on the right coronary artery. Subsequently, she has several admissions for chest pain and positive troponins. She had congestive heart failure, nonsustained VT. She has a defibrillator implanted. She has paroxysmal atrial fibrillation, on warfarin therapy. There was a history of hypertension, hyperlipidemia, diabetes, COPD, pulmonary embolus, colon resection. She had psychiatric problems including suicidal ideation and gestures. MEDICATIONS: At this time include Ambien, hydralazine, diltiazem, Coreg, warfarin, digoxin, doxycycline, DuoNeb, Effient, insulin, potassium chloride, Lasix, Lidoderm, Lipitor, Tramadol, Lisinopril, prednisone. ALLERGIES: SHE NOTES AN ALLERGY TO PLAVIX. FAMILY HISTORY: Noncontributory. SOCIAL HISTORY: She has recently been homeless. She is at [facility] following her last admission. She has resumed smoking. She does not drink alcohol. She is ambulatory, but very limited. Ten-point review of systems is otherwise unremarkable except as noted above. PHYSICAL EXAMINATION: GENERAL: She is a well-developed woman, lying flat in bed on telemetry, in no acute distress. VITAL SIGNS: She is V paced. She is afebrile. Blood pressure 101/56, O2 sats 95-97%, respiratory rate 18, HEENT: Reveals neck vein distention. No thyromegaly. No carotid bruit appreciated. Mucous membranes moist. Conjunctivae pink. NECK: Supple. LUNGS: Lung coelho, few scattered rhonchi. HEART: Examination of the heart revealed a regular rhythm with normal first and second heart sounds. There is a soft systolic murmur along the left sternal border. PMI is laterally displaced. ABDOMEN: Soft. Bowel sounds present. No mass, organomegaly, tenderness, rebound or guarding. EXTREMITIES: Revealed no cyanosis, clubbing or edema. NEUROLOGIC: Awake, alert and oriented. PSYCHIATRIC: Normal as to mood and affect. LABORATORY AND IMAGING: EKG demonstrates ventricular pacing. It is unchanged from a previous EKG. Chest x-ray reveals moderate cardiomegaly and vascular congestion. Minimal bibasilar infiltrates, similar to previous study. White count normal. Hemoglobin 10.4, hematocrit 33.1, platelet count normal. PT 18.7, INR 1.61, PTT 36.7. Electrolytes: BUN, creatinine, blood sugar unremarkable. LFTs unremarkable. Mildly elevated AST at 73 this morning. Troponin 1.24 and 8.09. CK 62. BNP 9020. Urinalysis is noted. IMPRESSION: Mallorie Francis is a 72-year-old woman with severe coronary artery disease, remote coronary bypass surgery, status post coronary interventions, the latter being in 03/2017 at which time a complex right coronary intervention was done, who presents with recurring chest pain, positive troponin consistent with acute myocardial infarction. At this time, I will review all her old records. We will continue medical therapy including hydralazine, diltiazem, Coreg, warfarin, digoxin, Effient, potassium, Lasix, Lipitor, nitroglycerin paste, Pepcid and lisinopril. She could be out of bed to a chair. She is being seen by Pulmonary. We will monitor input and outputs. I will repeat her troponin. She has complex medical, cardiac and social issues including the fact that she has recently been homeless and living out of her car. At this time, a conservative approach seems most appropriate. I will review this with Dr. Patñio to see if he feels that any additional benefit from a cardiac catheterization and repeat coronary intervention would be appropriate. I will follow along with you. I will make additional recommendations based on her clinical course.She has been advised to stop smoking. Nas Kemp MD [facility] # [id number] MTDD
[2017-08-05] MEDS: Digoxin 125 mcg (0.125 mg) Tab PO SCH (15:05)
--- NOTE | 2017-08-05 15:20 | RAD ---
PROCEDURE: Radiographs of the Lumbar Spine. HISTORY: s/p fall at rehab COMPARISON: No prior. FINDINGS: BONES: Normal alignment. No listhesis. No fracture. DISC SPACES: There is disc degeneration at L5-S1 OTHER FINDINGS: None. IMPRESSION: No acute findings
[2017-08-05] MEDS: guaiFENesin 200 mg/10 ml Syrup UD PO PRN (21:23)
--- NOTE | 2017-08-05 21:48 | HP ---
The patient was seen and examined on 08/04/2017, a little bit late evening. CHIEF COMPLAINT: Chest pain. HISTORY OF PRESENT ILLNESS: Ms. Mallorie Francis is a 72-year-old female, past medical history of myocardial infarction, cardiac stenting, pacemaker, COPD, asthma, was getting rehab in [facility], started chest pain there and the patient described discomfort is like 10/10. Her arm is also heavy. Patient states that she also began to experience associated shortness of breath, diaphoresis, nausea, fatigue, and have felt slightly like she has feelings of passing out. Patient was given aspirin by EMS prior to arrival. No hematuria or hematochezia. No fever, no chill. The patient is still smoking. PAST MEDICAL HISTORY: As above, coronary artery disease, COPD, TIA, visually impaired, diabetes mellitus type 2, history of fall, ileostomy, depression, anxiety, coronary stents. FAMILY HISTORY: Father and mother noncontributory. HABITS: Still smoking alcohol. No substance abuse. ALLERGIES: THE PATIENT IS ALLERGIC WITH PLAVIX. REVIEW OF SYSTEMS: Patient was seen and examined on the bedside, late evening. Still complaining about shortness of breath, heaviness in the chest, fatigue, night sweat. No fever, no vision changes, no hearing changes. Chest pain with pressure that radiates to the left arm, nausea. No arthralgia, no rash on the skin, having diaphoresis. No adenopathy. PHYSICAL EXAMINATION VITAL SIGNS: Temperature 98.7, pulse 86, respiratory rate 19, blood pressure 120/60, pulse oximetry 100. HEENT: Head: Normocephalic, atraumatic. Eyes: PERRLA. Extraocular muscles intact. Conjunctivae clear. Nose patent. Mucous membranes moist. NECK: Supple. No carotid bruit. No JVD or thyromegaly. CHEST: Bilaterally symmetrical. HEART: S1 and S2 positive. LUNGS: Clear to auscultation. ABDOMEN: Soft. Bowel sounds present. No organomegaly. EXTREMITIES: No edema. No cyanosis. NEUROLOGICAL: The patient is awake and alert. Moving all 4 extremities. No focal deficits. LABORATORY DATA: White blood cells 9.6, hemoglobin 10.7, hematocrit 33, platelets 209. Sodium 140, potassium 4.3, BUN 23, creatinine 1, glucose 165. ASSESSMENT AND PLAN: Ms. Mallorie Francis is a 72-year-old lady with anemia, hyperglycemia, with multiple medical problems came with chest pain and shortness of breath, myocardial infarction, cardiomyopathy, coronary artery disease, history of coronary stents, chronic obstructive pulmonary disease, active smoker, depression, atrial fibrillation, diabetes mellitus, sleep apnea syndrome. Patient's metalizer is Dr. Kemp consult, seen by Dr. bonilla apnea precautions, restarted Effient, Coumadin, gastrointestinal and deep venous thrombosis prophylaxis. Repeat labs. We will follow up. Tanisha Lebron MD MTDD
[2017-08-05] MEDS: Insulin Reg-LOW-Coverage SC SCH (21:56)
--- NOTE | 2017-08-06 00:24 | PN ---
DATE: 08/05/2017 PULMONARY PROGRESS NOTE REFERRING PHYSICIAN: Tanisha Lebron MD. SUBJECTIVE: She is lying in the bed at 45 degrees. No rhinitis. Does have some cough. No nausea. No vomiting. Mild chest discomfort. No leg pain or leg swelling. OBJECTIVE: GENERAL: In no acute distress. VITAL SIGNS: Temp is 98, heart rate is 73, respiratory rate is 20, blood pressure 115/58, pulse ox is 97% on nasal cannula. HEENT: Moist mucous membrane. Crowded airway. Mallampati score is 4. NECK: Supple. No JVD. LUNGS: A few crackles, scattered rhonchi and few wheezing. HEART: S1 and S2. ABDOMEN: Soft, nontender. No organomegaly. EXTREMITIES: No edema. NEUROLOGIC: Awake, alert. Follows simple command. MEDICATIONS: She is on Ambien 2.5 mg at bedtime p.r.n., hydralazine 25 mg three times a day, Benadryl 25 mg twice a day p.r.n., Cardizem CD 180 mg daily, Coreg 25 mg twice a day, Coumadin 5 mg at bedtime, digoxin 0.125 mg daily, DuoNeb q. 6 hours, Effient 5 mg daily, insulin coverage, potassium 20 mEq daily, Lasix 40 mg daily, lidocaine patch at affected area daily, Lipitor 20 mg daily, Pepcid 40 mg daily, prednisone 10 mg daily, Robitussin 200 mg q. 4 hours p.r.n., Ultram 50 mg twice a day p.r.n., Zestril 20 mg daily, Zoloft 100 mg daily. LABORATORY DATA: Shows hemoglobin 10.7, hematocrit 33.1, WBC 7.1, platelet is 213. Sodium 143, potassium 4.2, chloride 108, bicarbonate 26, BUN 19, creatinine 0.9, glucose 106, calcium 9.7. AST is 73, ALT 36, alk phos is 76. Troponin 8.0. Albumin is 3.4. Has the x-ray of lumbar spine done, which was unremarkable. There are no acute changes. IMPRESSION AND PLAN: Myocardial infarction, cardiomyopathy, coronary artery disease, history of coronary stent, being followed by Dr. Kemp's group, also active smoker, chronic obstructive lung disease, depression, atrial fibrillation, diabetes, may have sleep apnea syndrome. Advised her to stop smoking, but she claims she cannot and she will continue smoke understanding risk of . Cardiology point of view, we will follow Dr. Kemp's recommendations. Continue p.o. and inhaled bronchodilator, keep head at 45 degrees. Gastric prophylaxis, deep venous thrombosis prophylaxis. Follow up labs in the morning. Thank you and we will follow with you. Rosina Gabriel MD
[2017-08-06] MEDS: Albuterol-Ipratrop 3 mg / 0.5 (3 ml) UD IH SCH ×4 (01:08→19:56)
--- NOTE | 2017-08-06 02:56 | PN ---
DATE: SUBJECTIVE: Patient is seen and examined at the bedside, complaining about back pain, especially after fall in the [facility]. No nausea, vomiting, diarrhea. No hematuria. No hematochezia. No swelling of the legs. No headache. No dizziness. No shortness of breath. Chest pain is getting better. PHYSICAL EXAMINATION: VITAL SIGNS: Temperature 98, pulse 77, blood pressure 115/58, respiratory rate 19. HEENT: Head: Normocephalic, atraumatic. Eyes: PERRLA. Extraocular muscles intact. Conjunctivae clear. Nose: Patent. Mucous membranes moist. NECK: Supple. No carotid bruit. No JVD or thyromegaly. CHEST: Bilaterally symmetrical. HEART: S1, S2 positive. LUNGS: Clear to auscultation. ABDOMEN: Soft. Bowel sounds present. No organomegaly. EXTREMITIES: No edema. No cyanosis. NEUROLOGICAL: Patient is awake and alert. Moving all four extremities. No focal deficits. MEDICATIONS: Ambien, hydralazine, Benadryl, Cardizem, Coreg, Coumadin, digoxin, Effient, K-Dur, Lasix, Lidoderm, Lipitor, Pepcid, prednisone, Robitussin, Zestril, Zoloft. LABORATORY DATA: White blood cells 7.1, hemoglobin 10.4, hematocrit noted platelets 213. Sodium 143, potassium 4.2, BUN 19, creatinine 0.9, glucose 203. AST 73. ASSESSMENT AND PLAN: Ms. Mallorie Francis is a 72-year-old lady with anemia, hyperchloremia, hyperglycemia, abnormal liver function test. Troponin is trending up. General Ledger Bookkeeper is on the case. Urinary tract infection. Lumbar spine x-rays are reviewed by me. Seen by Dr. Nas Kemp and Dr. Rosina Gabriel. Patient has complex history, has coronary artery disease, which is severe with severe left ventricular dysfunction, history of coronary artery bypass surgery, myocardial infarction, coronary intervention. She also has a complex coronary intervention on the right coronary artery. She has several admissions for chest pain and positive troponin, congestive heart failure, nonsustained ventricular tachycardia. She has a defibrillator implanted, possible atrial fibrillation on Coumadin, history of hypertension, hypercholesterolemia, diabetes, chronic obstructive pulmonary disease, pulmonary emboli, colon resection, psychiatric history including suicidal ideation and attempt. Now patient was getting rehab in [facility]; was transferred to [facility] for chest pain. According to Dr. Kemp, he did review her old record. Continue medical therapy right now. Coumadin, Effient. Out of bed to the chair. Patient was complaining about back pain, put Lidoderm patch and started on tramadol. Urged to quit smoking . We will follow up. Tanisha Lebron MD MTDD
[2017-08-06] MEDS: guaiFENesin 200 mg/10 ml Syrup UD PO PRN ×2 (05:13→10:12)
[2017-08-06 07:18] LABS: INR 2.79 (0.93-1.08); PROTHROMBIN TIME 32.8 SECONDS (9.4-12.5)
[2017-08-06] MEDS: Insulin Reg-LOW-Coverage SC SCH ×4 (07:45→21:47)
[2017-08-06] MEDS: diltiaZEM 180 mg/24 Hours CD Cap PO SCH (10:12)
[2017-08-06] MEDS: Potassium Chloride 20 mEq ER Tab PO SCH (10:13)
[2017-08-06] MEDS: Lidocaine 5% Patch TD SCH (10:16)
--- NOTE | 2017-08-06 12:28 | CT ---
PROCEDURE: CT Lumbar Spine without contrast HISTORY: s/p fall r/o fracture COMPARISON: None. TECHNIQUE: Axial computed tomography images were obtained of the lumbar spine without the use of intravenous contrast. Coronal and sagittal reformatted images were created and reviewed. Radiation dose: Total exam DLP = 405 mGy-cm. This CT exam was performed using one or more of the following dose reduction techniques: Automated exposure control, adjustment of the mA and/or kV according to patient size, and/or use of iterative reconstruction technique. FINDINGS: VERTEBRAE: There is a mild compression fracture of the superior endplate of L4. Small distinct fracture lines can be seen in the superior endplate consistent with an acute fracture. DISCS/SPINAL CANAL/NEURAL FORAMINA: L1-2: Unremarkable. L2-3: Unremarkable. L3-4: Moderate disc bulge L4-5: Unremarkable. L5-S1: Severe disc degeneration with loss of disc height and vacuum disc. There is also moderate facet arthropathy and foraminal stenosis PARASPINAL SOFT TISSUES: Unremarkable. OTHER FINDINGS: None. IMPRESSION: There is a mild compression fracture of the superior endplate of L4. Small distinct fracture lines can be seen in the superior endplate consistent with an acute fracture.
--- NOTE | 2017-08-06 13:49 | PN ---
DATE: 08/06/2017 SUBJECTIVE: The patient is seen lying in bed on telemetry. She is currently comfortable. She denies any recurrent chest pain. She is anxious to return to the rehab center as they are in the process of placing her in a senior citizen's home in [place]. Apparently, her apartment is ready at this time. CURRENT MEDICATIONS: Include hydralazine 25 mg t.i.d., Benadryl p.r.n., diltiazem 180 mg daily, carvedilol 25 mg b.i.d., warfarin 5 mg daily, digoxin 0.125 mg daily, DuoNeb inhalers, Effient 5 mg daily, insulin coverage, Lasix 40 mg daily, potassium supplement, Lidoderm patch, Lipitor 20 mg daily, Pepcid 40 mg daily, prednisone 10 mg daily, Ultram, Zestril 20 mg daily and Zoloft 100 mg daily. OBJECTIVE: GENERAL: She is a middle-aged woman, who appears comfortable at present time. VITAL SIGNS: Blood pressure is 102/50 with pulse of 66, ventricular paced and respirations are 14. She is afebrile. HEENT: No JVD. CHEST: A few scattered rhonchi. HEART: PMI displaced laterally. Soft tones are noted. ABDOMEN: Soft, nontender. Normoactive bowel sounds. EXTREMITIES: No edema. DIAGNOSTIC DATA: INR is 2.79, glucose 111, troponin is 4.99. Last BUN and creatinine were 19 and 0.9, hemoglobin and hematocrit 10.4 and 33.1 with a platelet count of 213,000. Lumbar spine CT reportedly shows mild compression fracture at L4. IMPRESSION: 1. Apparent [id number] elevation myocardial infarction. Has had no recurrent chest pain. 2. Known complex coronary artery disease, status post prior bypass surgery and multivessel percutaneous coronary intervention with multiple interventions on her right coronary artery. 3. Severely reduced left ventricular systolic dysfunction. 4. Ventricular tachycardia, status post implantable cardioverter-defibrillator implant. 5. Paroxysmal atrial fibrillation. 6. Persistent tobacco abuse. RECOMMENDATIONS: At this time, intensified medical therapy will be planned. Oral nitrates to be added to her regimen and beta joshua and calcium channel joshua will continue. If she has recurrent symptoms, a repeat cardiac catheterization would likely be appropriate. This will require discontinuation of her Coumadin therapy prior to proceeding. She will return to [facility] today and arrange [facility]. Outpatient followup in the office next week with Dr. Kemp will be planned and if she is having persistent angina, repeat catheterization can be arranged at that time. We will be happy to follow along and make further recommendations and close outpatient followup as well. Dwight Patiño MD
[2017-08-06] MEDS: Digoxin 125 mcg (0.125 mg) Tab PO SCH (14:19)
[2017-08-06 14:24] LABS: ALB/GLOB RATIO 1.3 (1.1-1.8); ALBUMIN 3.1 g/dL (3.0-4.8); ALT/SGPT 31 U/L (7-56); AST/SGOT 45 U/L (14-36); BLOOD UREA NITROGEN 16 mg/dL (7-21); CALCIUM 9.5 mg/dL (8.4-10.5); GFR AFRICAN-AMERICAN > 60; GFR NON-AFRICAN AMERICAN > 60; MAGNESIUM 1.6 mg/dL (1.7-2.2)
--- NOTE | 2017-08-06 15:11 | PN ---
DATE: 08/06/2017 PULMONARY PROGRESS NOTE REFERRING PHYSICIAN: Tanisha Lebron MD. SUBJECTIVE: She is lying in the bed, head at 45 degrees. Night was unremarkable. Denying any pain today. Mild cough. No nausea. No vomiting, diarrhea, leg pain, leg swelling. Seen by Cardiology. OBJECTIVE: GENERAL: In no acute distress. VITAL SIGNS: Temp is 98, heart rate is 67, respiratory rate is 18, blood pressure 157/56, pulse ox 95% on nasal cannula. HEENT: Moist mucous membrane. Crowded airway. NECK: Supple. No JVD. LUNGS: Have a few scattered rhonchi. HEART: S1 and S2. ABDOMEN: Soft, nontender. No organomegaly. EXTREMITIES: No edema. NEUROLOGICAL: Awake and alert. Follows simple command. LABORATORY DATA: Shows INR today 2.79. Sodium 140, potassium 3.7, chloride 105, bicarbonate 24, BUN 16, creatinine 0.9, glucose 104, calcium 9.5, magnesium 1.6, AST 45, ALT 31, alk phos is 68, troponin today is 4.99, albumin is 3.1. MEDICATIONS: She is on Ambien 2.5 mg at bedtime p.r.n., hydralazine 25 mg three times a day, Benadryl p.r.n. basis, Cardizem CD 180 mg daily, Coreg 25 mg twice a day, Coumadin 5 mg given today, digoxin 0.125 mg daily, DuoNeb q. 6 hours, Effient 5 mg daily, insulin coverage, Imdur ER 30 mg daily, potassium 20 mEq daily, Lasix 40 mg daily, Lidoderm patch to affected area, Lipitor 20 mg daily, Pepcid 40 mg daily, prednisone 20 mg daily, Robitussin 200 mg q. 4 hours p.r.n., Ultram 50 mg twice a day p.r.n., Zestril 20 mg daily, Zoloft 100 mg daily. IMPRESSION AND PLAN: Myocardial infarction, cardiomyopathy, coronary artery disease, history of coronary stent, active smoker, chronic obstructive lung disease, depression, atrial fibrillation, diabetes, sleep apnea syndrome. Refused to use continuous positive airway pressure/bilevel positive airway pressure. Continuous smoke, understand risk and benefit ratio. Seen by Cardiology. I guess troponin is peaked and will be coming down. Continue diuretics, nitrates, afterload pourer, bronchodilator. Gastric prophylaxis. May give Coumadin 3 mg today. Thank you and we will follow with you. Rosina Gabriel MD
[2017-08-07] MEDS: Albuterol-Ipratrop 3 mg / 0.5 (3 ml) UD IH SCH ×4 (01:18→20:16)
--- NOTE | 2017-08-07 02:41 | PN ---
DATE: SUBJECTIVE: The patient is a 72-year-old female lying down comfortably on the bed. Night was unremarkable. No nausea, vomiting, or diarrhea. Cough is better. Shortness of breath is better. Complaining about intractable back pain only. Lidocaine is not working, even tramadol is not working. The patient went for CAT scan. She is getting dyspnea on walking. Phd Intern and mold capper helper is on the case. No fever. No chills. No headache or dizziness. No swelling of the legs. OBJECTIVE: VITAL SIGNS: Temperature 98, heart rate 67, respiratory rate 18, blood pressure 157/56. HEENT: Head: Normocephalic, atraumatic. Eyes: PERRLA. Extraocular muscles intact. Conjunctivae clear. Nose patent. Mucous membranes moist. NECK: Supple. No carotid bruits, JVD, or thyromegaly. CHEST: Bilaterally symmetrical. HEART: S1 and S2 positive. LUNGS: Clear to auscultation. ABDOMEN: Soft. Bowel sounds positive. EXTREMITIES: No edema. No cyanosis. NEUROLOGIC: Patient is awake and alert. Moving all four extremities. No focal deficits. LABORATORY DATA: Sodium 140, potassium 3.7, BUN 16, creatinine 0.9, glucose 107. AST 45, ALT 31. MEDICATIONS: Ambien, hydralazine, Benadryl, Cardizem, Coreg, Coumadin, digoxin, DuoNeb, Effient, insulin, Imdur, potassium, Lasix, Lidoderm, Lipitor, Pepcid, prednisone, Robitussin, tramadol, Zestril, and Zoloft. ASSESSMENT AND PLAN: Ms. Mallorie Francis is a 72-year-old female with multiple medical problems, past myocardial infarction, cardiomyopathy, coronary artery disease, history of coronary artery stent, active smoker, chronic history of lung disease, depression, atrial fibrillation on Coumadin and Effient, asthmatic sleep apnea syndrome. Patient refused BiPAP, still actively smoker. Phd Intern is on the case. According to Dr. Patiño, patient needs medical treatment. Troponin was positive. Continue diuretics, nitrates, afterload reduction, bronchodilators, gastric prophylaxis. Continue Coumadin. CAT scan of the back done. There is a mild compression fracture of the posterior endplate of L4, small distinct fracture lines can be seen in the superior endplate consistent with an acute fracture. We will call Dr. Fabricio Escudero's consult. We will get opinion. Meanwhile, physical therapy. Repeat labs. Tanisha Lebron MD
[2017-08-07] MEDS: Insulin Reg-LOW-Coverage SC SCH ×4 (08:28→22:38)
--- NOTE | 2017-08-07 09:01 | CP.PCM.PN ---
Subjective - Date & Time of Evaluation Date of Evaluation: 08/07/17 Time of Evaluation: 07:00 - Subjective Subjective: Stable on 2R. No chest pain or SOB. V/S noted. V. Paced 13 beat VT reported. PE: Lungs: scattered rhonchi Cor.: S1S2 Abd.: soft xt.: no edema Neuro.: alert INR= 2.79 Urine C+S: + GNR Lumbar CT noted. Comp. fx. L4 Objective - Vital Signs/Intake and Output Vital Signs (last 24 hours): Temp Pulse Resp BP Pulse Ox 97.6 F 63 20 102/46 L 99 08/07/17 06:00 08/07/17 06:00 08/07/17 06:00 08/07/17 06:00 08/07/17 06:00 Intake and Output: 08/07/17 08/07/17 06:59 18:59 Intake Total 360 Balance 360 - Medications Medications: Current Medications Albuterol/Ipratropium (Duoneb 3 Mg/0.5 Mg (3 Ml) Ud) 3 ml IH [id number] [facility] Last Admin: 08/07/17 08:11 Dose: Not Given Atorvastatin Calcium (Lipitor) 20 mg PO DIN [facility] Last Admin: 08/06/17 18:40 Dose: 20 mg Carvedilol (Coreg) 25 mg PO BID [facility] Last Admin: 08/06/17 18:41 Dose: Not Given Digoxin (Digoxin) 0.125 mg PO 1400 [facility] Last Admin: 08/06/17 14:19 Dose: 0.125 mg Diltiazem HCl (Cardizem Cd) 180 mg PO DAILY [facility] Last Admin: 08/06/17 10:12 Dose: 180 mg Diphenhydramine HCl (Benadryl) 25 mg PO BID PRN PRN Reason: Allergy symptoms Last Admin: 08/06/17 11:39 Dose: 25 mg Famotidine (Pepcid) 40 mg PO HS [facility] Last Admin: 08/06/17 22:43 Dose: 40 mg Furosemide (Lasix) 40 mg PO DAILY [facility] Last Admin: 08/06/17 10:13 Dose: 40 mg Guaifenesin (Robitussin) 200 mg PO Q4H PRN PRN Reason: Cough and congestion Last Admin: 08/06/17 10:12 Dose: 200 mg Hydralazine HCl (Apresoline) 25 mg PO TID [facility] Last Admin: 08/06/17 18:41 Dose: Not Given Insulin Human Regular (Humulin R Low) 0 units SC ACHS [facility] PRN Reason: Protocol Last Admin: 08/07/17 08:28 Dose: Not Given Isosorbide Mononitrate (Imdur Er) 30 mg PO DAILY [facility] Last Admin: 08/06/17 14:19 Dose: 30 mg Lidocaine (Lidoderm) 1 ea TD DAILY [facility] Last Admin: 08/06/17 10:16 Dose: 1 ea Lisinopril (Zestril) 20 mg PO DAILY [facility] Last Admin: 08/06/17 10:12 Dose: 20 mg Potassium Chloride (K-Dur 20 Meq Er Tab) 20 meq PO DAILY [facility] Last Admin: 08/06/17 10:13 Dose: 20 meq Prasugrel (Effient) 5 mg PO DAILY [facility] Last Admin: 08/06/17 10:12 Dose: 5 mg Prednisone (Prednisone Tab) 10 mg PO DAILY [facility] Last Admin: 08/06/17 10:13 Dose: 10 mg Sertraline HCl (Zoloft) 100 mg PO DAILY [facility] Last Admin: 08/06/17 10:12 Dose: 100 mg Tramadol HCl (Ultram) 50 mg PO BID PRN PRN Reason: Pain, Mild (1-3) Last Admin: 08/07/17 06:17 Dose: 50 mg Warfarin Sodium (Coumadin) 3 mg PO 1800 [facility] PRN Reason: Protocol Last Admin: 08/06/17 18:41 Dose: 3 mg Zolpidem Tartrate (Ambien) 2.5 mg PO HS PRN; Protocol PRN Reason: Insomnia Last Admin: 08/06/17 23:30 Dose: 2.5 mg - Labs Labs: 08/05/17 06:00 08/06/17 05:30 PT 32.8 SECONDS (9.4-12.5) H 08/06/17 05:30 INR 2.79 (0.93-1.08) H 08/06/17 05:30 APTT 36.7 Seconds (25.1-36.5) H 08/04/17 13:30 Assessment and Plan - Assessment and Plan (Free Text) Assessment: +Chest Pain/+ trops/NSTEMI CAD/MIs/CABG/PCIs/Severe LVD CHF NSVT/ICD PAF HBP Diabetes COPD/Smoker Colon Resection Chest Pain Depression/Suicidal thoughts and gestures Plan: Nitrates Medical therapy unless CP is recurrent > cath at that time OOB Monitor INR's As per Janine.Dr. Lebron D/C Smoking.
[2017-08-07] MEDS: guaiFENesin 200 mg/10 ml Syrup UD PO PRN ×2 (10:56→17:23)
[2017-08-07] MEDS: diltiaZEM 180 mg/24 Hours CD Cap PO SCH (10:57)
[2017-08-07] MEDS: Lidocaine 5% Patch TD SCH (10:57)
[2017-08-07] MEDS: Potassium Chloride 20 mEq ER Tab PO SCH (10:57)
[2017-08-07] MEDS: Oxycodone/Acetaminophen 5/325 mg Tab PO PRN ×2 (11:46→17:29)
[2017-08-07] MEDS: Meropenem 500 MG in Sodium Chloride 0.9% 100 ML IVPB SCH ×2 (13:54→21:20)
[2017-08-07] MEDS: Digoxin 125 mcg (0.125 mg) Tab PO SCH (13:55)
[2017-08-07] MEDS ORDERED: Meropenem 500 MG in Sodium Chloride 0.9% 50 ML IVPB SCH (14:00)
--- NOTE | 2017-08-07 20:15 | CP.PCM.CON ---
History of Present Illness - History of Present Illness History of Present Illness: Infectious Disease Consultation/Follow Up: August 07, 2017 72 yo female with extensive past medical history that includes coronary artery disease, cardiomyopathy, pulmonary hypertension, atrial fibrillation, chronic obstructive lung disease, diabetes mellitus, and multiple attempts at suicide. The patient was in rehab at [facility] and developed chest pain. The patient was brought to [facility] for further evaluation. During workup, patient was also found to have UTI with ESBL+ E. Coli. On prior recent hospitalizations, the patient was also found to have ESBL+ E. coli in the urine. The patient was on the medical floor in early April 2017 and again in May 2017 with a finding of ESBL+ E. Coli in the urine. She received Meropenem for treatment at this time. History of Suicide attempts - patient has been in psych several times. Past Patient History - Infectious Disease Hx of Infectious Diseases: None - Past Social History Smoking Status: Current Some Days Smoker - CARDIAC Hx Cardiac Disorders: Yes (cad) Hx Congestive Heart Failure: Yes Hx Hypercholesterolemia: Yes - PULMONARY Hx Chronic Obstructive Pulmonary Disease (COPD): Yes - NEUROLOGICAL Hx Neurological Disorder: Yes Hx Transient Ischemic Attacks (TIA): Yes - HEENT Hx HEENT Problems: Yes (eyeglasses) - RENAL Hx Renal Failure: Yes - ENDOCRINE/METABOLIC Hx Diabetes Mellitus Type 2: Yes - HEMATOLOGICAL/ONCOLOGICAL Hx Blood Disorders: No - INTEGUMENTARY Hx Dermatological Problems: Yes Other/Comment: multiple skin discolorations arms, fading old bruises b/l knees, multiple surgical scars to abd, and lcw from pacemaker insertion - MUSCULOSKELETAL/RHEUMATOLOGICAL Hx Musculoskeletal Disorders: Yes Hx Falls: Yes - GASTROINTESTINAL Hx Gastrointestinal Disorders: Yes (ileostomy reversal 2010) Hx Ileostomy: Yes Other/Comment: colon resection - GENITOURINARY/GYNECOLOGICAL Hx Genitourinary Disorders: Yes - PSYCHIATRIC Hx Anxiety: Yes Hx Depression: Yes Hx Substance Use: No - SURGICAL HISTORY Hx Surgeries: Yes (neck fusion cervical spine c5&6) Hx Cardiac Catheterization: Yes Hx Coronary Stent: Yes - ANESTHESIA Hx Anesthesia: Yes Hx Anesthesia Reactions: No Hx Malignant Hyperthermia: No Meds Allergies/Adverse Reactions: Allergies Allergy/AdvReac Type Severity Reaction Status Date / Time clopidogrel bisulfate Allergy RASH Verified 08/04/17 22:42 [From Plavix] - Medications Medications: Current Medications Albuterol/Ipratropium (Duoneb 3 Mg/0.5 Mg (3 Ml) Ud) 3 ml IH [id number] [facility] Last Admin: 08/07/17 13:39 Dose: 3 ml Atorvastatin Calcium (Lipitor) 20 mg PO DIN [facility] Last Admin: 08/07/17 17:23 Dose: 20 mg Carvedilol (Coreg) 25 mg PO BID [facility] Last Admin: 08/07/17 17:25 Dose: 25 mg Digoxin (Digoxin) 0.125 mg PO 1400 [facility] Last Admin: 08/07/17 13:55 Dose: 0.125 mg Diltiazem HCl (Cardizem Cd) 180 mg PO DAILY [facility] Last Admin: 08/07/17 10:57 Dose: 180 mg Diphenhydramine HCl (Benadryl) 25 mg PO BID PRN PRN Reason: Allergy symptoms Last Admin: 08/07/17 10:58 Dose: 25 mg Famotidine (Pepcid) 40 mg PO HS [facility] Last Admin: 08/06/17 22:43 Dose: 40 mg Furosemide (Lasix) 40 mg PO DAILY [facility] Last Admin: 08/07/17 10:56 Dose: 40 mg Guaifenesin (Robitussin) 200 mg PO Q4H PRN PRN Reason: Cough and congestion Last Admin: 08/07/17 17:23 Dose: 200 mg Hydralazine HCl (Apresoline) 25 mg PO TID [facility] Last Admin: 08/07/17 13:54 Dose: Not Given Meropenem 500 mg/ Sodium (Chloride) 100 mls @ 100 mls/hr IVPB Q8 [facility] Last Admin: 08/07/17 13:54 Dose: 100 mls/hr Insulin Human Regular (Humulin R Low) 0 units SC ACHS [facility] PRN Reason: Protocol Last Admin: 08/07/17 17:49 Dose: 1 units Isosorbide Mononitrate (Imdur Er) 30 mg PO DAILY [facility] Last Admin: 08/07/17 10:56 Dose: 30 mg Lidocaine (Lidoderm) 1 ea TD DAILY [facility] Last Admin: 08/07/17 10:57 Dose: 1 ea Lisinopril (Zestril) 20 mg PO DAILY [facility] Last Admin: 08/07/17 10:56 Dose: 20 mg Oxycodone/Acetaminophen (Percocet 5/325 Mg Tab) 1 tab PO Q6H PRN PRN Reason: Pain, moderate (4-7) Stop: 08/10/17 10:24 Last Admin: 08/07/17 17:29 Dose: 1 tab Potassium Chloride (K-Dur 20 Meq Er Tab) 20 meq PO DAILY [facility] Last Admin: 08/07/17 10:57 Dose: 20 meq Prasugrel (Effient) 5 mg PO DAILY [facility] Last Admin: 08/07/17 10:55 Dose: 5 mg Prednisone (Prednisone Tab) 10 mg PO DAILY [facility] Last Admin: 08/07/17 10:57 Dose: 10 mg Sertraline HCl (Zoloft) 100 mg PO DAILY [facility] Last Admin: 08/07/17 10:56 Dose: 100 mg Tramadol HCl (Ultram) 50 mg PO BID PRN PRN Reason: Pain, Mild (1-3) Last Admin: 08/07/17 06:17 Dose: 50 mg Warfarin Sodium (Coumadin) 3 mg PO 1800 [facility] PRN Reason: Protocol Last Admin: 08/07/17 17:23 Dose: 3 mg Zolpidem Tartrate (Ambien) 2.5 mg PO HS PRN; Protocol PRN Reason: Insomnia Last Admin: 08/06/17 23:30 Dose: 2.5 mg Physical Exam - Constitutional Appears: Non-toxic, No Acute Distress, Chronically Ill - Head Exam Head Exam: ATRAUMATIC, NORMOCEPHALIC - Eye Exam Eye Exam: EOMI, PERRL Pupil Exam: NORMAL ACCOMODATION, PERRL - ENT Exam ENT Exam: Mucous Membranes Moist, Normal External Ear Exam, TM's Normal Bilaterally - Neck Exam Neck exam: Positive for: Full Rom, Normal Inspection - Respiratory Exam Respiratory Exam: Decreased Breath Sounds, Rhonchi. absent: Rales, Wheezes - Cardiovascular Exam Cardiovascular Exam: REGULAR RHYTHM, RRR, +S1, +S2 - GI/Abdominal Exam GI & Abdominal Exam: Normal Bowel Sounds, Soft. absent: Distended, Tenderness - Extremities Exam Extremities exam: Positive for: full ROM, normal inspection - Neurological Exam Neurological exam: Alert, CN II-XII Intact, Oriented x3 - Psychiatric Exam Psychiatric exam: Normal Affect, Normal Mood - Skin Skin Exam: Intact, Normal Color Results - Vital Signs Recent Vital Signs: Last Vital Signs Temp 98.2 F 08/07/17 18:00 Pulse 61 08/07/17 18:00 Resp 18 08/07/17 18:00 BP 105/45 L 08/07/17 18:00 Pulse Ox 99 08/07/17 06:00 - Labs Result Diagrams: 08/05/17 06:00 08/06/17 05:30 Labs: Laboratory Results - last 24 hr 08/06/17 08/07/17 08/07/17 21:34 07:12 11:02 POC Glucose (mg/dL) 138 H 128 H 293 H 08/07/17 16:01 POC Glucose (mg/dL) 171 H Assessment & Plan - Assessment and Plan (Free Text) Assessment: 72 yo female originally brought in from [facility] for chest pain found to have NSTEMI and elevated troponins. The patient was also found to have UTI with ESBL+ E. Coli. The patient has findings for UTI with ESBL+ E. coli. Several episodes of UTI in the past few months with ESBL+ E. Coli. Started on Meropenem for now. The patient has good renal function. Consider up to 14 days of treatment. Will consider completion with oral nitrofuratoin or oral fosfomycin when patient is ready for discharge from hospital. Thank you for allowing me to participate in the care of the patient, we will follow with you.
--- NOTE | 2017-08-08 00:03 | CON ---
DATE: 08/07/2017 CHIEF COMPLAINT AND HISTORY OF PRESENT ILLNESS: Ms. Francis is a 72-year-old female, who fell approximately 2 weeks ago at [facility][1] while attempting to sit in a wheelchair. Since that time, she has been having severe lower lumbar pain. She was admitted with pain and shortness of breath. Imaging so far demonstrates an L4 compression fracture. Clinically, her breathing has improved. She is still having severe pain, which limits her sleeping and ability to move. She has no history of cancer. She denies fever, sweats and chills. No lower extremity, bowel or bladder issues have been identified. Her history is significant for a previous surgical fusion. PAST MEDICAL HISTORY: Includes coronary artery disease, CHF, defibrillator, COPD, TIA and diabetes. RECOMMENDATIONS: Ms. Francis would like to proceed with the kyphoplasty. I will order a bone scan to confirm uptake in activity at the L4 level. She is nearly therapeutic on her warfarin, this will need to be held. Tentatively we will schedule a kyphoplasty in the next 3-4 days depending on the results of the bone scan. In the interim, she can be transferred to [facility] for physical therapy if appropriate. Fabricio Escudero MD MTDD
--- NOTE | 2017-08-08 00:14 | PN ---
DATE: SUBJECTIVE: Patient is seen and examined at the bedside, looking comfortable. No nausea, vomiting, or diarrhea. No hematuria or hematochezia. Coughing is better. Shortness of breath is better, but still having intractable back pain. Sleep was comfortable last night. Appetite is okay. Bowel movement is okay. PHYSICAL EXAMINATION: VITAL SIGNS: Temperature 97.6, pulse 63, respiratory rate 20, blood pressure 102/46, pulse oximetry 99. HEENT: Head: Normocephalic, atraumatic. Eyes: PERRLA. Extraocular muscles intact. Conjunctivae clear. Nose: Patent. Mucous membranes moist. NECK: Supple. No carotid bruits, JVD, or thyromegaly. CHEST: Bilaterally symmetrical. HEART: S1 and S2 positive. LUNGS: Clear to auscultation. ABDOMEN: Soft. Bowel sounds present. No organomegaly. EXTREMITIES: No edema. No cyanosis. NEUROLOGIC: Patient is awake and alert. Moving all four extremities. No focal deficits. MEDICATIONS: DuoNeb, Lipitor, Coreg, digoxin, Cardizem, Benadryl, Pepcid, Lasix, Robitussin, insulin, Lidoderm, Zestril, Effient, prednisone, Zoloft, tramadol, Coumadin, Ambien. LABORATORY DATA: White blood cells 7.1, hemoglobin 10.4, hematocrit 33.1, platelets 213. Sodium 140, potassium 3.7, BUN 15, creatinine 0.9, glucose 104. ASSESSMENT AND PLAN: Ms. Mallorie Turner is a 72-year-old female with anemia, came with chest pain, troponin is positive, had non-ST elevation myocardial infarction, history of coronary artery disease, myocardial infarction, coronary artery bypass grafting, severe left ventricular dysfunction, congestive heart failure, had pacemaker and defibrillator, diabetes mellitus, chronic obstructive pulmonary disease, actively smoking, history of colon resection, chest pain, history of depression, suicidal thoughts and gesture, status post fall from wheelchair, has lumbar fracture. Discussion done with Dr. Fabricio Escudero. He is planning for surgery, but according to him Coumadin should be held for a couple of days. We discussed with Dr. Kemp/Dr. Patiño. Meanwhile, continue nitrates, physical therapy, out of bed, monitoring INRs. Urged to quit smoking. We will follow up. Tanisha Lebron MD [facility] # [id number]
[2017-08-08] MEDS: Albuterol-Ipratrop 3 mg / 0.5 (3 ml) UD IH SCH ×3 (01:48→13:45)
[2017-08-08 03:16] VITALS: RESP 20
[2017-08-08] MEDS: Meropenem 500 MG in Sodium Chloride 0.9% 100 ML IVPB SCH ×2 (05:40→16:15)
[2017-08-08] MEDS: Oxycodone/Acetaminophen 5/325 mg Tab PO PRN ×2 (05:44→13:47)
[2017-08-08 06:46] LABS: PROTHROMBIN TIME 50.1 SECONDS (9.4-12.5)
[2017-08-08 06:54] LABS: INR 4.23 (0.93-1.08)
[2017-08-08 07:13] VITALS: O2SAT 96
--- NOTE | 2017-08-08 08:08 | CP.PCM.PN ---
Subjective - Date & Time of Evaluation Date of Evaluation: 08/08/17 Time of Evaluation: 07:00 - Subjective Subjective: Stable on 2R. No chest pain or SOB. + back pain. She would like to have kyphoplasty if it will help with back pain. V/S noted. V. Paced PE: Lungs: scattered rhonchi Cor.: S1S2 Abd.: soft xt.: no edema Neuro.: alert INR= 4.23 Urine C+S: + GNR Lumbar CT noted. Comp. fx. L4 Objective - Vital Signs/Intake and Output Vital Signs (last 24 hours): Temp Pulse Resp BP Pulse Ox 97.8 F 65 20 122/45 L 96 08/08/17 06:00 08/08/17 06:00 08/08/17 06:00 08/08/17 06:00 08/08/17 06:00 Intake and Output: 08/08/17 08/08/17 06:59 18:59 Intake Total 660 200 Balance 660 200 - Medications Medications: Current Medications Albuterol/Ipratropium (Duoneb 3 Mg/0.5 Mg (3 Ml) Ud) 3 ml IH [id number] [facility] Last Admin: 08/08/17 07:23 Dose: 3 ml Atorvastatin Calcium (Lipitor) 20 mg PO DIN [facility] Last Admin: 08/07/17 17:23 Dose: 20 mg Calcium/Vitamin D (Oscal-D 250 Mg-125 Units Tab) 1 tab PO DAILY [facility] Carvedilol (Coreg) 25 mg PO BID [facility] Last Admin: 08/07/17 17:25 Dose: 25 mg Digoxin (Digoxin) 0.125 mg PO 1400 [facility] Last Admin: 08/07/17 13:55 Dose: 0.125 mg Diltiazem HCl (Cardizem Cd) 180 mg PO DAILY [facility] Last Admin: 08/07/17 10:57 Dose: 180 mg Diphenhydramine HCl (Benadryl) 25 mg PO BID PRN PRN Reason: Allergy symptoms Last Admin: 08/07/17 10:58 Dose: 25 mg Famotidine (Pepcid) 40 mg PO HS [facility] Last Admin: 08/07/17 21:21 Dose: 40 mg Furosemide (Lasix) 40 mg PO DAILY [facility] Last Admin: 08/07/17 10:56 Dose: 40 mg Guaifenesin (Robitussin) 200 mg PO Q4H PRN PRN Reason: Cough and congestion Last Admin: 08/07/17 17:23 Dose: 200 mg Hydralazine HCl (Apresoline) 25 mg PO TID [facility] Last Admin: 08/07/17 13:54 Dose: Not Given Meropenem 500 mg/ Sodium (Chloride) 100 mls @ 100 mls/hr IVPB Q8 [facility] Last Admin: 08/08/17 05:40 Dose: 100 mls/hr Insulin Human Regular (Humulin R Low) 0 units SC ACHS [facility] PRN Reason: Protocol Last Admin: 08/07/17 22:38 Dose: Not Given Isosorbide Mononitrate (Imdur Er) 30 mg PO DAILY [facility] Last Admin: 08/07/17 10:56 Dose: 30 mg Lidocaine (Lidoderm) 1 ea TD DAILY [facility] Last Admin: 08/07/17 10:57 Dose: 1 ea Lisinopril (Zestril) 20 mg PO DAILY [facility] Last Admin: 08/07/17 10:56 Dose: 20 mg Oxycodone/Acetaminophen (Percocet 5/325 Mg Tab) 1 tab PO Q6H PRN PRN Reason: Pain, moderate (4-7) Stop: 08/10/17 10:24 Last Admin: 08/08/17 05:44 Dose: 1 tab Potassium Chloride (K-Dur 20 Meq Er Tab) 20 meq PO DAILY [facility] Last Admin: 08/07/17 10:57 Dose: 20 meq Prasugrel (Effient) 5 mg PO DAILY [facility] Last Admin: 08/07/17 10:55 Dose: 5 mg Prednisone (Prednisone Tab) 5 mg PO DAILY [facility] Sertraline HCl (Zoloft) 100 mg PO DAILY [facility] Last Admin: 08/07/17 10:56 Dose: 100 mg Tramadol HCl (Ultram) 50 mg PO BID PRN PRN Reason: Pain, Mild (1-3) Last Admin: 08/07/17 21:20 Dose: 50 mg Warfarin Sodium (Coumadin) 3 mg PO 1800 [facility] PRN Reason: Protocol Last Admin: 08/07/17 17:23 Dose: 3 mg Zolpidem Tartrate (Ambien) 2.5 mg PO HS PRN; Protocol PRN Reason: Insomnia Last Admin: 08/08/17 00:46 Dose: 2.5 mg - Labs Labs: 08/05/17 06:00 08/06/17 05:30 PT 50.1 SECONDS (9.4-12.5) H 08/08/17 05:30 INR 4.23 (0.93-1.08) H* 08/08/17 05:30 APTT 36.7 Seconds (25.1-36.5) H 08/04/17 13:30 Assessment and Plan - Assessment and Plan (Free Text) Assessment: +Chest Pain/+ trops/NSTEMI CAD/MIs/CABG/PCIs/Severe LVD CHF NSVT/ICD PAF HBP Diabetes COPD/Smoker Colon Resection Chest Pain Depression/Suicidal thoughts and gestures Back Pain/ Compression fx. Plan: Hold warfarin. Monitor daily INR's. Nitrates Medical therapy unless CP is recurrent > re-cath/PCI at that time OOB As per Pultirso., Dr. Lebron, and Dr. Makenna Escudero. Bone Scan. Possible kyphoplasty. Higher risk due to CAD/Recent WI's, etc D/C Smoking.
--- NOTE | 2017-08-08 08:27 | PN ---
DATE: 08/07/2017 PULMONARY PROGRESS NOTE REFERRING PHYSICIAN: Tanisha Lebron MD SUBJECTIVE: She is lying in the bed, head at 45 degrees. Night was unremarkable. No headache. No rhinitis. Still some cough and shortness. No nausea. No vomiting. Has back pain. No leg pain or leg swelling. OBJECTIVE: GENERAL: In no acute distress. VITAL SIGNS: Temp is 98, heart rate is 61, respiratory rate is 18, blood pressure 105/45, pulse ox 95% on room air. HEENT: Moist mucous membrane. Crowded airway. NECK: Supple. No JVD. LUNGS: Have a few scattered rhonchi. HEART: S1 and S2. ABDOMEN: Soft and nontender. No organomegaly. EXTREMITIES: There is no edema. NEUROLOGIC: Awake, alert. Follows simple command. MEDICATIONS: Patient is on Ambien 2.5 mg at bedtime p.r.n., hydralazine 25 mg three times a day, Benadryl 25 mg twice a day p.r.n., Cardizem CD 180 mg daily, Coreg 25 mg twice a day, Coumadin 3 mg at bedtime, digoxin 0.125 mg daily, DuoNeb q. 6 hour, Effient 5 mg daily, insulin coverage, Imdur ER 30 mg daily, potassium 20 mEq daily, Lasix 40 mg daily, lidocaine patch affected area daily, Lipitor 20 mg daily, meropenem 500 mg q. 8 hour, Pepcid 40 mg at bedtime, Percocet 5/325 one tab q. 4 hour p.r.n., prednisone 10 mg daily, Robitussin 200 mg q. 4 hour p.r.n., Ultram 50 mg twice a day p.r.n., Zestril 20 mg daily, Zoloft 100 mg daily. LABORATORY DATA: Shows blood sugar is 171. There is E. coli in the urine, which is ESBL. She has a lumbar spine CT done yesterday, which showed there was a mild compression fracture of the superior endplate of L4, small distal fracture lines can be seen in the superior endplate consistent with acute fracture. IMPRESSION AND PLAN: Myocardial infarction, cardiomyopathy, coronary artery disease, history of coronary stent, active smoker, chronic obstructive lung disease, depression, atrial fibrillation, diabetes, sleep apnea syndrome, L4 compression fracture, also have extended-spectrum beta-lactamase Escherichia coli urinary tract infection. Patient was seen by Infectious Disease. She was also seen by Interventional Radiology. We will decrease prednisone to 5 mg. Continue inhaled bronchodilator. Add calcium and vitamin D. Urged the patient to stop smoking. INR in the morning. Out of bed to chair. Physical therapy. Thank you and we will follow with you. Rosina Gabriel MD
[2017-08-08] MEDS: Insulin Reg-LOW-Coverage SC SCH ×3 (08:47→17:07)
[2017-08-08] MEDS ORDERED: Calcium-Vit D 250 mg-125 Units Tab UD PO SCH (10:00)
[2017-08-08] MEDS: Potassium Chloride 20 mEq ER Tab PO SCH (10:27)
[2017-08-08] MEDS: diltiaZEM 180 mg/24 Hours CD Cap PO SCH (10:48)
[2017-08-08] MEDS: Lidocaine 5% Patch TD SCH (11:50)
[2017-08-08 13:28] LABS: PROTHROMBIN TIME 46.8 SECONDS (9.4-12.5)
[2017-08-08 13:29] LABS: INR 3.96 (0.93-1.08)
--- NOTE | 2017-08-08 15:47 | CP.PCM.PN ---
Subjective - Date & Time of Evaluation Date of Evaluation: 08/08/17 Time of Evaluation: 14:15 - Subjective Subjective: Infectious Disease Follow Up: August 08, 2017 72 yo female with extensive past medical history that includes coronary artery disease, cardiomyopathy, pulmonary hypertension, atrial fibrillation, chronic obstructive lung disease, diabetes mellitus, and multiple attempts at suicide. The patient was in rehab at [facility] and developed chest pain. The patient [place] [facility] [place]. During workup, patient was also found to have UTI with ESBL+ E. Coli. On prior recent hospitalizations, the patient was also found to have ESBL+ E. coli in the urine. The patient was on the medical floor in early April 2017 and again in May 2017 with a finding of ESBL+ E. Coli in the urine. She received Meropenem for treatment at this time. History of Suicide attempts - patient has been in psych several times. New finding of mild compression fracture of L4 as the patient also had a recent fall. Not cleared by Cardiology for intervention. Objective - Vital Signs/Intake and Output Vital Signs (last 24 hours): Temp Pulse Resp BP Pulse Ox 97.9 F 74 20 124/52 L 96 08/08/17 12:00 08/08/17 12:00 08/08/17 12:00 08/08/17 12:00 08/08/17 06:00 Intake and Output: 08/08/17 08/08/17 06:59 18:59 Intake Total 660 920 Output Total 4 Balance 660 916 - Medications Medications: Current Medications Albuterol/Ipratropium (Duoneb 3 Mg/0.5 Mg (3 Ml) Ud) 3 ml IH [id number] [facility] Last Admin: 08/08/17 13:45 Dose: Not Given Atorvastatin Calcium (Lipitor) 20 mg PO DIN [facility] Last Admin: 08/07/17 17:23 Dose: 20 mg Calcium/Vitamin D (Oscal-D 250 Mg-125 Units Tab) 1 tab PO DAILY [facility] Last Admin: 08/08/17 11:51 Dose: 1 tab Carvedilol (Coreg) 25 mg PO BID [facility] Last Admin: 08/08/17 11:54 Dose: 25 mg Digoxin (Digoxin) 0.125 mg PO 1400 [facility] Last Admin: 08/07/17 13:55 Dose: 0.125 mg Diltiazem HCl (Cardizem Cd) 180 mg PO DAILY [facility] Last Admin: 08/07/17 10:57 Dose: 180 mg Diphenhydramine HCl (Benadryl) 25 mg PO BID PRN PRN Reason: Allergy symptoms Last Admin: 08/07/17 10:58 Dose: 25 mg Famotidine (Pepcid) 40 mg PO HS [facility] Last Admin: 08/07/17 21:21 Dose: 40 mg Furosemide (Lasix) 40 mg PO DAILY [facility] Last Admin: 08/08/17 11:55 Dose: 40 mg Guaifenesin (Robitussin) 200 mg PO Q4H PRN PRN Reason: Cough and congestion Last Admin: 08/07/17 17:23 Dose: 200 mg Hydralazine HCl (Apresoline) 25 mg PO TID [facility] Last Admin: 08/08/17 11:53 Dose: 25 mg Meropenem 500 mg/ Sodium (Chloride) 100 mls @ 100 mls/hr IVPB Q8 [facility] Last Admin: 08/08/17 05:40 Dose: 100 mls/hr Insulin Human Regular (Humulin R Low) 0 units SC ACHS [facility] PRN Reason: Protocol Last Admin: 08/08/17 08:47 Dose: Not Given Isosorbide Mononitrate (Imdur Er) 30 mg PO DAILY [facility] Last Admin: 08/08/17 11:52 Dose: 30 mg Lidocaine (Lidoderm) 1 ea TD DAILY [facility] Last Admin: 08/08/17 11:50 Dose: 1 ea Lisinopril (Zestril) 20 mg PO DAILY [facility] Last Admin: 08/08/17 11:51 Dose: 20 mg Oxycodone/Acetaminophen (Percocet 5/325 Mg Tab) 1 tab PO Q6H PRN PRN Reason: Pain, moderate (4-7) Stop: 08/10/17 10:24 Last Admin: 08/08/17 13:47 Dose: 1 tab Potassium Chloride (K-Dur 20 Meq Er Tab) 20 meq PO DAILY [facility] Last Admin: 08/07/17 10:57 Dose: 20 meq Prasugrel (Effient) 5 mg PO DAILY [facility] Last Admin: 08/08/17 11:51 Dose: 5 mg Prednisone (Prednisone Tab) 5 mg PO DAILY [facility] Last Admin: 08/08/17 11:54 Dose: 5 mg Sertraline HCl (Zoloft) 100 mg PO DAILY [facility] Last Admin: 08/08/17 11:52 Dose: 100 mg Tramadol HCl (Ultram) 50 mg PO BID PRN PRN Reason: Pain, Mild (1-3) Last Admin: 08/07/17 21:20 Dose: 50 mg Warfarin Sodium (Coumadin) 3 mg PO 1800 [facility] PRN Reason: Protocol Last Admin: 08/07/17 17:23 Dose: 3 mg Zolpidem Tartrate (Ambien) 2.5 mg PO HS PRN; Protocol PRN Reason: Insomnia Last Admin: 08/08/17 00:46 Dose: 2.5 mg - Labs Labs: 08/05/17 06:00 08/06/17 05:30 PT 46.8 SECONDS (9.4-12.5) H 08/08/17 13:00 INR 3.96 (0.93-1.08) H* 08/08/17 13:00 APTT 36.7 Seconds (25.1-36.5) H 08/04/17 13:30 - Constitutional Appears: Non-toxic, No Acute Distress, Chronically Ill - Head Exam Head Exam: ATRAUMATIC, NORMOCEPHALIC - Eye Exam Eye Exam: EOMI, PERRL Pupil Exam: NORMAL ACCOMODATION, PERRL - ENT Exam ENT Exam: Mucous Membranes Moist, Normal External Ear Exam, TM's Normal Bilaterally - Neck Exam Neck Exam: Full ROM, Normal Inspection - Respiratory Exam Respiratory Exam: Decreased Breath Sounds, NORMAL BREATHING PATTERN. absent: Rales, Rhonchi, Wheezes - Cardiovascular Exam Cardiovascular Exam: REGULAR RHYTHM, RRR, +S1, +S2 - GI/Abdominal Exam GI & Abdominal Exam: Soft, Normal Bowel Sounds. absent: Distended, Tenderness - Extremities Exam Extremities Exam: Full ROM, Normal Inspection - Neurological Exam Neurological Exam: Alert, Awake, Oriented x3 - Psychiatric Exam Psychiatric exam: Normal Affect, Normal Mood - Skin Skin Exam: Intact, Normal Color Assessment and Plan - Assessment and Plan (Free Text) Assessment: 72 yo female originally brought in from [facility] for chest pain found to have NSTEMI and elevated troponins. The patient was also found to have UTI with ESBL+ E. Coli. The patient has findings for UTI with ESBL+ E. coli. Several episodes of UTI in the past few months with ESBL+ E. Coli. Started on Meropenem for now. The patient has good renal function. Consider up to 14 days of treatment. Will consider completion with oral nitrofuratoin or oral fosfomycin when patient is ready for discharge from hospital. However, if the patient is to have intervention for the compression fracture of L4 then it would be strongly preferred to maintain meropenem treatment. Midline cannot be placed at the patient's PT/INR is elevated from anticoagulants. Thank you for allowing me to participate in the care of the patient, we will follow with you.
[2017-08-08] MEDS: Digoxin 125 mcg (0.125 mg) Tab PO SCH (16:28)
[2017-08-08 16:32] VITALS: PULSE 64
--- NOTE | 2017-08-08 17:19 | NM ---
PROCEDURE: Whole Body Bone Scan HISTORY: Eval L4 compression fx for uptake COMPARISON: Comparison is made with the previous CT of the lumbar spine dated 08/06/2017 TECHNIQUE: Following administration of 23.2 miCu of Tc MDP multiplanar whole body images were obtained. FINDINGS: Mild linear increased radiotracer uptake noted at the L4 vertebral body corresponding to mild compression deformity noted in the CT findings likely represent subacute or old fracture. There is focal increased radiotracer uptake noted at the right anterior rib likely represent posttraumatic changes or small fracture. Evidence for bony metastatic disease: None. Degenerative uptake: Mild degenerative changes noted specially at the shoulder joints Physiologic uptake: Heterogeneous uptake noted in the kidneys with focal photopenic area noted at the lower pole of the left kidney. Other findings: None. IMPRESSION: Mild linear increased tracer uptake at L4 suggestive of subacute or old fracture. Focal tracer accumulation at the anterior aspect of the right 10th rib likely due to recent trauma and or small fracture.
[2017-08-08 17:38] VITALS: BP 132/63; PULSE 62; TEMP 98
--- NOTE | 2017-08-08 22:29 | PN ---
DATE: 08/08/2017 PULMONARY PROGRESS NOTE REFERRING PHYSICIAN: Tanisha Lebron MD. SUBJECTIVE: The patient is lying in the bed, head at 45 degrees. Night was unremarkable. Feels better. Cough is better. No more chest pain, no nausea. Still has some back pain. No dysuria, no leg pain, no leg swelling. OBJECTIVE: GENERAL: In no acute distress. VITAL SIGNS: Temperature 98, heart rate 62, respiratory rate is 20, blood pressure 132/63, pulse ox 96% on room air. HEENT: Moist mucous membrane. Crowded airway. Mallampati score is IV. NECK: Supple. No JVD. LUNGS: Have fair airflow with a few rhonchi. HEART: S1, S2. ABDOMEN: Soft and nontender. No organomegaly. EXTREMITIES: No edema. NEUROLOGIC: Awake and alert. Follows simple commands. MEDICATIONS: She is on Ambien 2.5 mg at bedtime p.r.n., hydralazine 25 mg 3 times a day, Benadryl 25 mg twice a day p.r.n., Cardizem CD 180 mg daily, Coreg 25 mg twice a day, Coumadin 3 mg daily, digoxin 0.125 mg daily, DuoNeb q. 6 hour, Effient 5 mg daily, insulin coverage, Imdur ER 30 mg daily, potassium 20 mEq daily, Lasix 40 mg daily, lidocaine patch to affected area, Lipitor 20 mg daily, meropenem 500 mg q. 8 hour, vitamin D daily, Pepcid 40 mg daily, Percocet 5/325 q. 6 hour, prednisone 5 mg daily, Robitussin 200 mg q. 4 hour p.r.n., Ultram 50 mg twice a day p.r.n., Zestril 20 mg daily, Zoloft 10 mg daily. LABORATORY DATA: Shows hemoglobin 10.4 on 08/05/2017. INR is 3.96. Blood sugar is 176. She has a bone scan done today, which shows mild linear increase trace uptake in L4, suggestive of subacute or old fracture, focal tracer accumulation in the anterior aspects of the right due to recent trauma and a small fracture. IMPRESSION AND PLAN: Myocardial infarction, cardiomyopathy, coronary artery disease, history of coronary stent, active smoker, chronic obstructive lung disease, depression, atrial fibrillation, diabetes, sleep apnea syndrome, L4 compression fracture, may have a rib fracture too, extended-spectrum beta-lactamase in the urine, seen by Infectious Disease. Pulmonary point of view, doing okay. We will discontinue prednisone. Keep head at 45 degrees, sleep apnea precaution, being followed by Cardiology, on anticoagulation, hold Coumadin today, INR in the morning. Fall precaution, pain management, physical therapy. Thank you and we will follow with you. Rosina Gabriel MD
--- NOTE | 2017-08-11 07:39 | DS ---
CHIEF COMPLAINT: Chest pain. HISTORY OF PRESENT ILLNESS: is a 72-year-old female with past medical history of myocardial infarction and cardiac stenting, pacemaker, COPD, asthma, was getting rehab in [facility], started getting chest pain and had a fall from the wheelchair in [facility], came in [facility]. She was having non-ST elevation myocardial infarction. The CAT scan of the back showed she has fracture of the vertebrae. Dr. Fabricio Escudero's consult called. He ordered a kyphoplasty, but the patient was on Coumadin. Discussion done with Dr. Kemp. As per surgical services coordinator, we cannot hold Coumadin, so we sent the patient back to rehab, so she will get physical therapy and we will see she is improving or not. If she will not improve, we will bring her back for kyphoplasty. We will reconsult Dr. Fabricio Escudero and Dr. Kemp. PAST MEDICAL HISTORY: COPD, TIA, visually impaired, diabetes mellitus type 2, fall, ileectomy, depression, anxiety, coronary stents. FAMILY HISTORY: Father and mother, noncontributory. HABITS: Still smoking. No ethanol, no substance abuse. ALLERGIES: THE PATIENT IS ALLERGIC TO PLAVIX. REVIEW OF SYSTEMS: Patient was seen and examined on the bedside, looking comfortable. No nausea, vomiting, or diarrhea. No hematuria. No hematochezia. No swelling of the legs. No chest pain. No palpitation. No headache or dizziness. No fever. No chills. Night was unremarkable. Cough is better. Still having back pain. No dysuria. PHYSICAL EXAMINATION: VITAL SIGNS: Temperature 98, heart rate 62, respiratory rate 20, blood pressure 132/63, pulse oxymetry 93% on room air. HEENT: Head: Normocephalic, atraumatic. Eyes: PERRLA. Extraocular muscles intact. Conjunctivae clear. Nose patent. Mucous membranes moist. NECK: Supple. No carotid bruits. No JVD or thyromegaly. CHEST: Bilaterally symmetrical. HEART: S1 and S2 positive. LUNGS: Clear to auscultation. ABDOMEN: Soft. Bowel sounds present. No organomegaly. EXTREMITIES: No edema, no cyanosis. NEUROLOGICAL: Patient is awake and alert. Moving all four extremities. No focal deficit. MEDICATIONS: Ambien, hydralazine, Benadryl, Cardizem, Coreg, Coumadin, digoxin, DuoNeb, Effient, insulin, Imdur, potassium, Lasix, lidocaine, Lipitor, meropenem, vitamin D, Pepcid, Percocet, Robitussin, tramadol, Zestril, Zoloft. LABORATORY DATA: Hemoglobin 10.4, INR 3.96. We do not have recent labs today, but reviewed old labs. ASSESSMENT AND PLAN: Ms. has myocardial infarction, cardiomyopathy, coronary artery disease, history of coronary artery stents, active smoker, chronic obstructive pulmonary disease, depression, atrial fibrillation, diabetes mellitus, sleep apnea syndrome, L4 compression fracture, may have rib fracture too, extended-spectrum beta-lactamase in the urine. ID is on the case. Dr. Gabriel discussed about prednisone. According to Dr. Fabricio Escduero, the patient needs kyphoplasty, but we cannot hold Coumadin as per Dr. Kemp. We will send the patient back for physical therapy and we will see the improvement. We will plan according to that. Tanisha Lebron MD
== END 2017-08-08 20:06 | DRG 281 ==
LOC: ED 11:05 → ERH 14:27 → 2RNO 22:09
PROVIDERS: ADMIT Internal Medicine; ATTEND Internal Medicine
DX: I21.4 Non-ST elevation (NSTEMI) myocardial infarction (principal); I42.9 Cardiomyopathy, unspecified; I47.2 Ventricular tachycardia; E11.65 Type 2 diabetes mellitus with hyperglycemia; E87.8 Other disorders of electrolyte and fluid balance, not elsewhere classified; N39.0 Urinary tract infection, site not specified; M48.56XA Collapsed vertebra, not elsewhere classified, lumbar region, initial encounter for fracture; R45.851 Suicidal ideations; I50.9 Heart failure, unspecified; D64.9 Anemia, unspecified; J44.9 Chronic obstructive pulmonary disease, unspecified; I25.10 Atherosclerotic heart disease of native coronary artery without angina pectoris; E78.00 Pure hypercholesterolemia, unspecified; E78.5 Hyperlipidemia, unspecified; B96.20 Unspecified Escherichia coli [E. coli] as the cause of diseases classified elsewhere; F17.200 Nicotine dependence, unspecified, uncomplicated; F41.9 Anxiety disorder, unspecified; G47.30 Sleep apnea, unspecified; I11.0 Hypertensive heart disease with heart failure; I27.20 Pulmonary hypertension, unspecified; I48.0 Paroxysmal atrial fibrillation; I25.2 Old myocardial infarction; Z53.20 Procedure and treatment not carried out because of patient's decision for unspecified reasons; Z59.0 Homelessness; Z79.01 Long term (current) use of anticoagulants; Z86.711 Personal history of pulmonary embolism; Z86.73 Personal history of transient ischemic attack (TIA), and cerebral infarction without residual deficits; Z87.440 Personal history of urinary (tract) infections; Z90.49 Acquired absence of other specified parts of digestive tract; Z91.5 Personal history of self-harm; Z91.81 History of falling; Z95.1 Presence of aortocoronary bypass graft; Z95.5 Presence of coronary angioplasty implant and graft; Z95.810 Presence of automatic (implantable) cardiac defibrillator; Z98.1 Arthrodesis status; Z88.8 Allergy status to other drugs, medicaments and biological substances; Z16.12 Extended spectrum beta lactamase (ESBL) resistance; F32.89 Other specified depressive episodes

== ENCOUNTER 2017-10-09 13:22 | Inpatient (IN) | payer MEDICARE, MEDICAID ==
[2017-10-09 13:24] VITALS: BMI 21.4
--- NOTE | 2017-10-09 14:09 | ED PDOC ---
Arrival/HPI - General Historian: Patient - History of Present Illness Time/Duration: < week (2 days) - General Chief Complaint: Shortness Of Breath Time Seen by Provider: 10/09/17 13:30 - History of Present Illness Narrative History of Present Illness (Text): Patient is a 72 year old female with an extensive past medical history includes NM, cardiac stents, a pacemaker and COPD who presents to the emergency department complaining of worsening shortness of breath since this Friday. Patient was discharged from [facility] on Friday. Patient reports being on oxygen during her time at [facility] but the request for home oxygen was denied by her insurance company due to she was a current smoker. Patient stopped smoking two weeks ago. She has been attempting to use nebulizer treatments at home with her hospice care transitions coordinator, who is at bedside, but she is not experiencing any relief. She is experiencing chills, lightheadedness, dizziness, fatigue, cough, increased phlegm (white), nausea (no vomiting), decreased appetite and non-bloody diarrhea (water --> now loose, formed), all since returning home on Friday. Denies fevers, chest pain, numbness, tingling, vision changes, edema, weakness, sore throat, facial droop or slurred speech. PMD: Dr. Lebron Incoming Freight Clerk: Dr. Kemp (Anaya,Aram) Past Medical History - Provider Review Nursing Documentation Reviewed: Yes - Past History Past History: No Previous - Infectious Disease Hx of Infectious Diseases: None - Cardiac Hx Hypertension: No - Pulmonary Hx Chronic Obstructive Pulmonary Disease (COPD): Yes - Neurological Hx Neurological Disorder: Yes Hx Transient Ischemic Attacks (TIA): Yes - HEENT Hx HEENT Disorder: Yes (eyeglasses) - Renal Hx Renal Failure: Yes - Endocrine/Metabolic Hx Diabetes Mellitus Type 2: Yes - Hematological/Oncological Hx Blood Disorders: No - Integumentary Hx Dermatological Disorder: Yes Other/Comment: multiple skin discolorations arms, fading old bruises b/l knees, multiple surgical scars to abd, and lcw from pacemaker insertion - Musculoskeletal/Rheumatological Hx Musculoskeletal Disorders: Yes Hx Falls: Yes - Gastrointestinal Hx Gastrointestinal Disorders: Yes (ileostomy reversal 2010) Hx Ileostomy: Yes Other/Comment: colon resection - Genitourinary/Gynecological Hx Genitourinary Disorders: Yes - Psychiatric Hx Anxiety: Yes Hx Depression: Yes Hx Substance Use: No - Surgical History Hx Cardiac Catheterization: Yes Hx Coronary Stent: Yes - Anesthesia Hx Anesthesia: Yes Hx Anesthesia Reactions: No Hx Malignant Hyperthermia: No - Suicidal Assessment Feels Threatened In Home Enviroment: No Family/Social History Family/Social History: Unknown Family HX Smoking Status: Former Smoker (quit smoking two weeks ago) Hx Alcohol Use: No Hx Substance Use: No Hx Substance Use Treatment: No Allergies/Home Meds Allergies/Adverse Reactions: Allergies clopidogrel bisulfate [From Plavix] Allergy (Verified 08/04/17 22:42) RASH Home Medications: Home Meds Medication Instructions Recorded Confirmed Acetylcysteine [Mucomyst 10% 4ML] 1 vial IH QID 10/09/17 10/09/17 Albuterol Sulfate [Ventolin Hfa] 1 puff IH TID 10/09/17 10/09/17 Aspirin [Adult Aspirin] 1 tab PO DAILY 10/09/17 10/09/17 Biotin [Biotin] 1 tab PO DAILY 10/09/17 10/09/17 Budesonide/Formoterol Fumarate 1 puff IH BID 10/09/17 10/09/17 [Symbicort 160-4.5 Mcg Inhaler] Carvedilol [Coreg] 25 mg PO BID 10/09/17 10/09/17 Digoxin 125 mcg PO QOTHERDAY 10/09/17 10/09/17 Diltiazem HCl [Cartia Xt] 1 tab PO DAILY 10/09/17 10/09/17 DiphenhydrAMINE [Benadryl] 1 cap PO BID 10/09/17 10/09/17 Docusate [Colace] 1 cap PO BID 10/09/17 10/09/17 Ferrous Sulfate [Feosol] 1 tab PO DAILY 10/09/17 10/09/17 Furosemide [Lasix] 40 mg PO DAILY 10/09/17 10/09/17 GlipiZIDE [Glucotrol] 10 mg PO DAILY 10/09/17 10/09/17 Insulin Detemir [Levemir] 12 unit SC DAILY 10/09/17 10/09/17 Isosorbide Mononitrate ER [Imdur 1 tab PO DAILY 10/09/17 10/09/17 ER] Levocetirizine Dihydrochloride 1 tab PO DAILY 10/09/17 10/09/17 [Xyzal] Linagliptin [Tradjenta] 1 tab PO DAILY 10/09/17 10/09/17 Montelukast [Singulair] 1 tab PO DAILY 10/09/17 10/09/17 Nitroglycerin [Nitrostat] 1 tab SL PRN PRN 10/09/17 10/09/17 Nortriptyline [Pamelor] 1 tab PO TID 10/09/17 10/09/17 Potassium Chloride [K-Dur 20 mEq 20 meq PO DAILY 10/09/17 10/09/17 ER Tab] Ranitidine HCl [Zantac] 1 tab PO BID 10/09/17 10/09/17 Warfarin [Coumadin] 4 mg PO 1800 10/09/17 10/09/17 Zolpidem [Ambien] 1 tab PO HS 10/09/17 10/09/17 hydrALAZINE [Apresoline] 25 mg PO TID 10/09/17 10/09/17 traMADol [Ultram] 50 mg PO PRN PRN 10/09/17 10/09/17 Review of Systems - Review of Systems Constitutional: Fatigue. absent: Fevers (but has chills ) Eyes: absent: Vision Changes, Photophobia ENT: absent: Hearing Changes, Sore Throat, Rhinorrhea, Sinus Congestion Respiratory: SOB, Cough, Sputum (white), Wheezing (intermittent) Cardiovascular: HERNANDEZ. absent: Chest Pain, Palpitations, Edema, Syncope Gastrointestinal: Diarrhea (non-bloody, watery to loose stools), Nausea. absent : Abdominal Pain, Vomiting Genitourinary Female: absent: Dysuria, Frequency, Vaginal Discharge Musculoskeletal: Back Pain (known fx on L4) Neurological: Dizziness, Gait Changes (walks without assistance at baseline, has been using cane since coming home on Friday due to dizziness/ lightheadedness). absent: Headache, Focal Weakness Endocrine: absent: Diaphoresis Hemo/Lymphatic: absent: Adenopathy Psychiatric: Depression (decreased appetite) Physical Exam Vital Signs Reviewed: Yes Temperature: Afebrile Blood Pressure: Normal Pulse: Regular Respiratory Rate: Normal Appearance: Positive for: Non-Toxic, Comfortable Pain Distress: None Mental Status: Positive for: Alert and Oriented X 3 - Systems Exam Head: Present: Atraumatic, Normocephalic Pupils: Present: PERRL Extroacular Muscles: Present: EOMI Conjunctiva: Present: Normal Mouth: Present: Moist Mucous Membranes. No: Normal Teeth (missing many teeth, poor dentition) Pharnyx: Present: ERYTHEMA Nose (External): Present: Atraumatic Neck: Present: Normal Range of Motion Respiratory/Chest: Present: Rales (throughout b/l), Rhonchi (throughout b/l), Tachypneic, Other (o2 sat @98% on 4L NC; drops to 93% with no o2). No: Respiratory Distress, Accessory Muscle Use, Tender to Palpation Cardiovascular: Present: Regular Rate and Rhythm, Normal S1, S2, Peripheal Pulses Present. No: Murmurs Abdomen: Present: Normal Bowel Sounds. No: Tenderness, Distention, Peritoneal Signs, Rebound, Guarding Upper Extremity: Present: Normal Inspection, Normal ROM, NORMAL PULSES. No: Cyanosis, Edema, Tenderness, Swelling, Erythema Lower Extremity: Present: Normal Inspection, NORMAL PULSES. No: Edema, CALF TENDERNESS Neurological: Present: GCS=15, CN II-XII Intact, Speech Normal, Motor Func Grossly Intact, Memory Normal Skin: Present: Warm, Dry, Normal Color. No: Rashes Lymphatic: No: Cervical Adenopathy Psychiatric: Present: Alert, Oriented x 3, Normal Insight, Normal Concentration , Depressed Mood. No: Suicidal Ideation, Hallucinations, Intoxicated, Lethargic Vital Signs Temp Pulse Resp BP Pulse Ox 10/09/17 18:50 87 18 132/66 97 10/09/17 18:08 132/77 10/09/17 16:45 83 18 129/76 96 10/09/17 15:22 18 10/09/17 13:34 97.7 F 68 24 108/64 99 Medical Decision Making Re-evaluation Time: 15:39 Reassessment Condition: Improving,but remains with symptoms - Lab Interpretations I have reviewed the lab results: Yes - RAD Interpretation Weight Loss Counselor: Radiologist - EKG Interpretation Interpreted by ED Physician: Yes Type: 12 lead EKG Comparison: Similar to previous EKG ED Course and Treatment: Given Solumedrol 125mg IVP, Duonebs INH q15min x3, aspirin 81mg PO 10/09/17 15:39 Upon re-eval, patient states that her breathing has improved. CXR - Mild to moderate vascular congestion unchanged. No focal consolidation - no change from previous CXR. Patient started on Azithromycin and given Lasix (BNP 20,000), mag and potassium repleted. Dr. Arenas spoke with Dr. Lebron who has accepted patient. Will be admitted to telemetry. (Anaya,Aram) 10/09/17 20:18 Patient seen by resident and then evaluated by me. Ekg shows paced rhythm at 68bpm. Cxray as above. On my exam, patient has wheezing b/l. She is likely becoming O2 dependent due to advanced COPD. Likely also some component of chf. Dr. Lebron evaluated at bedside and requesting pulmonary and cardiology eval ( Elzbieta Arenas) - Lab Interpretations Lab Results: 10/09/17 14:20 10/09/17 15:30 Lab Results 10/09/17 15:30: Sodium 138, Potassium 3.5 L, Chloride 104, Carbon Dioxide 21, Anion Gap 17, BUN 17, Creatinine 0.9, Est GFR ( Amer) > 60, Est GFR (Non- Af Amer) > 60, Random Glucose 95, Calcium 9.0, Magnesium 1.6 L, Total Bilirubin 1.2, AST 16, ALT 26, Alkaline Phosphatase 79, Lactate Dehydrogenase 268 L, Total Creatine Kinase < 20 L, Troponin I 0.06 D, NT-Pro-B Natriuret Pep 84041 H , Total Protein 6.1, Albumin 3.7, Globulin 2.4, Albumin/Globulin Ratio 1.6 10/09/17 14:20: PT 25.9 H, INR 2.23 H, APTT 25.5 10/09/17 14:20: WBC 5.3 D, RBC 3.64, Hgb 10.9 L, Hct 32.9 L, MCV 90.4, MCH 29.9 , MCHC 33.1, RDW 18.0 H, Plt Count 301, MPV 11.1 H, Gran % 74.3 H, Lymph % (Auto ) 18.9 L, [place] % (Auto) 5.5, Eos % (Auto) 0.9 L, Baso % (Auto) 0.4, Gran # 3.94 , Lymph # (Auto) 1.0 L, [place] # (Auto) 0.3, Eos # (Auto) 0.1, Baso # (Auto) 0.02 - RAD Interpretation Narrative RAD Interpretations (Text): 10/09/17 15:42 CXR - Mild to moderate vascular congestion unchanged. No focal consolidation ( Aram Julien) Radiology Orders: 10/09/17 14:11 CHEST PORTABLE [RAD] Stat - EKG Interpretation EKG Interpretation (Text): 10/09/17 18:19 Ventricular paced rhythm - unchanged from prior EKG (Aram Julien) - Medication Orders Current Medication Orders: Discontinued Medications Albuterol/Ipratropium (Duoneb 3 Mg/0.5 Mg (3 Ml) Ud) 3 ml IH Q15M ZAIRE Stop: 10/09/17 14:31 Last Admin: 10/09/17 14:36 Dose: 3 ml Aspirin (Ecotrin) 81 mg PO STAT STA Stop: 10/09/17 14:01 Last Admin: 10/09/17 14:27 Dose: 81 mg Diphenhydramine HCl (Benadryl) 50 mg IVP STAT STA Stop: 10/09/17 18:42 Last Admin: 10/09/17 18:51 Dose: 50 mg IVP Administration Document 10/09/17 18:51 GMD (Rec: 10/09/17 18:51 [id number] Charges for Administration # of IVP Administrations 1 Furosemide (Lasix) 40 mg IVP STAT STA Stop: 10/09/17 16:24 Last Admin: 10/09/17 18:08 Dose: 40 mg MAR Blood Pressure Document 10/09/17 18:08 GMD (Rec: 10/09/17 18:08 [facility]MD [id number][facility] Blood Pressure Blood Pressure (100/60-150/90) 132/77 IVP Administration Document 10/09/17 18:08 GMD (Rec: 10/09/17 18:08 [facility]MD [id number]) Charges for Administration # of IVP Administrations 1 Azithromycin (Zithromax 500mg In Ns) 500 mg in 250 mls @ 167 mls/hr IVPB STAT STA PRN Reason: Protocol Stop: 10/09/17 17:52 Last Admin: 10/09/17 18:08 Dose: 167 mls/hr eMAR Start Stop Document 10/09/17 18:08 GMD (Rec: 10/09/17 18:08 GMD [id number]) Intravenous Solution Start Date 10/09/17 Start Time 18:08 End Date 10/09/17 End time 19:38 Total Infusion Time 90 Magnesium Sulfate/Dextrose (Magnesium Sulfate 1 Gm/100 Ml D5w) 1 gm in 100 mls @ 100 mls/hr IVPB ONCE ONE Stop: 10/09/17 19:16 Last Admin: 10/09/17 18:29 Dose: 100 mls/hr eMAR Start Stop Document 10/09/17 18:29 GMD (Rec: 10/09/17 18:30 GMD [id number]) Intravenous Solution Start Date 10/09/17 Start Time 18:29 End Date 10/09/17 End time 19:29 Total Infusion Time 60 Methylprednisolone (Solu-Medrol) 125 mg IVP STAT STA Stop: 10/09/17 14:00 Last Admin: 10/09/17 14:27 Dose: 125 mg IVP Administration Document 10/09/17 14:27 GMD (Rec: 10/09/17 14:27 [facility]MD [id number]) Charges for Administration # of IVP Administrations 1 Potassium Chloride (K-Dur 20 Meq Er Tab) 20 meq PO ONCE ONE Stop: 10/09/17 18:18 Last Admin: 10/09/17 18:30 Dose: 20 meq Disposition/Present on Arrival - Present on Arrival Any Indicators Present on Arrival: No History of DVT/PE: No History of Uncontrolled Diabetes: No Urinary Catheter: No History of Decub. Ulcer: No History Surgical Site Infection Following: CABG - Mediastinitis - Disposition Have Diagnosis and Disposition been Completed?: Yes Disposition Time: 18:27 Patient Plan: Admission, Telemetry - Disposition Diagnosis: COPD (chronic obstructive pulmonary disease) Disposition: HOSPITALIZED Patient Problems: Current Active Problems Problem Status Onset COPD (chronic obstructive pulmonary disease) Chronic Condition: GUARDED
[2017-10-09] MEDS: Albuterol-Ipratrop 3 mg / 0.5 (3 ml) UD IH SCH ×3 (14:15→14:36)
--- NOTE | 2017-10-09 15:06 | RAD ---
HISTORY: shortness of breath COMPARISON: 08/04/2017 FINDINGS: LUNGS: No active pulmonary disease. PLEURA: No significant pleural effusion identified, no pneumothorax apparent. CARDIOVASCULAR: Moderate cardiomegaly. Mild vascular congestion. OSSEOUS STRUCTURES: Sternal wires VISUALIZED UPPER ABDOMEN: Normal. OTHER FINDINGS: Pacemaker IMPRESSION: Mild to moderate vascular congestion unchanged. No focal consolidation
[2017-10-09 15:10] LABS: BASO # 0.02 K/mm3 (0.0-2.0); BASO % 0.4 % (0.0-3.0); EOS # 0.1 (0.0-0.7); EOS % 0.9 % (1.5-5.0); GRAN # 3.94 (1.4-6.5); GRAN % 74.3 % (50.0-68.0); HEMOGLOBIN 10.9 g/dL (12.0-16.0); LYMPH % 18.9 % (22.0-35.0); MEAN CELL VOLUME 90.4 fl (80.0-105.0); MEAN CORPUSCULAR HEMOGLOBIN 29.9 pg (25.0-35.0); MEAN CORPUSCULAR HGB CONC 33.1 g/dl (31.0-37.0); MEAN PLATELET VOLUME 11.1 fl (7.0-11.0); MONO # 0.3 (0.1-0.6); MONO % 5.5 % (1.0-6.0); RBC 3.64 10^6/uL (3.5-6.1); WHITE BLOOD COUNT 5.3 10^3/ul (4.5-11.0)
[2017-10-09 15:21] LABS: INR 2.23 (0.93-1.08); PARTIAL THROMBOPLASTIN TIME 25.5 Seconds (25.1-36.5); PROTHROMBIN TIME 25.9 SECONDS (9.4-12.5)
[2017-10-09 15:51] LABS: ALB/GLOB RATIO 1.6 (1.1-1.8); ALBUMIN 3.7 g/dL (3.0-4.8); ALT/SGPT 26 U/L (7-56); AST/SGOT 16 U/L (14-36); BLOOD UREA NITROGEN 17 mg/dL (7-21); GFR AFRICAN-AMERICAN > 60; GFR NON-AFRICAN AMERICAN > 60
[2017-10-09 16:03] LABS: B-TYPE NATRIURETIC PEPTIDE 20000 pg/mL (0-450); TROPONIN I 0.06 ng/mL
[2017-10-09] MEDS ORDERED: Azithromycin 500MG/NS 250ml 500 MG/250 ML BAG IVPB STA (16:23)
[2017-10-09] MEDS ORDERED: Magnesium Sulfate 1 gm in D5W 1 GM/100 ML BAG IVPB ONE (18:17)
[2017-10-09] MEDS ORDERED: Potassium Chloride 20 mEq ER Tab PO ONE (18:17)
[2017-10-09] MEDS ORDERED: DiphenhydrAMINE 50 mg/ml Inj IVP STA (18:41)
[2017-10-09 23:45] LABS: URINE BILIRUBIN NEGATIVE (NEGATIVE); URINE BLOOD NEGATIVE (NEGATIVE); URINE GLUCOSE (UA) NEGATIVE (NEGATIVE); URINE LEUKOCYTE ESTERASE TRACE Leu/uL (NEGATIVE); URINE PROTEIN NEGATIVE mg/dL (<30 mg/dL); URINE UROBILINOGEN 0.2 E.U./dL (<1 E.U./dL)
[2017-10-09 23:57] LABS: URINE APPEARANCE SL CLOUDY (CLEAR); URINE COLOR YELLOW (YELLOW)
[2017-10-10 00:46] LABS: INR 2.46 (0.93-1.08); PROTHROMBIN TIME 28.6 SECONDS (9.4-12.5)
[2017-10-10 01:07] LABS: URINE BACTERIA LARGE (NEG); URINE RBC NEGATIVE /hpf (0-2)
[2017-10-10] MEDS: Albuterol-Ipratrop 3 mg / 0.5 (3 ml) UD IH SCH ×3 (02:36→14:11)
--- NOTE | 2017-10-10 06:37 | CP.PCM.PN ---
Subjective - Date & Time of Evaluation Date of Evaluation: 10/10/17 Time of Evaluation: 06:36 - Subjective Subjective: Patient was seen at bedside. She complained of headache. 134/69,98.5*F. Headache is mild, frontal, for half hour, not associated with dizziness, nausea , vomiting, weakness , paraesthesia, history of traum, ENT symptoms. Medical record was reviewed. This 72 year old woman was admitted with worsening of sob, exacerbaton of CHF. Has PMH of CHF,NM,cardiac stents, PPM, COPD, DM II, falls, ileostomy reversal, colon resection, anxiety. Objective - Vital Signs/Intake and Output Vital Signs (last 24 hours): Temp Pulse Resp BP Pulse Ox 97.4 F L 86 20 131/73 98 10/10/17 03:57 10/10/17 03:57 10/10/17 03:57 10/10/17 03:57 10/10/17 03:10 Intake and Output: 10/09/17 10/10/17 18:59 06:59 Intake Total 480 Balance 480 - Medications Medications: Current Medications Albuterol/Ipratropium (Duoneb 3 Mg/0.5 Mg (3 Ml) Ud) 3 ml IH [id number] ZAIRE Last Admin: 10/10/17 02:36 Dose: 3 ml Aspirin (Ecotrin) 81 mg PO DAILY ZAIRE Atorvastatin Calcium (Lipitor) 20 mg PO DIN ZAIRE Carvedilol (Coreg) 25 mg PO BID ZAIRE Digoxin (Digoxin) 0.125 mg PO QOTHERDAY ZAIRE Diltiazem HCl (Cardizem Cd) 180 mg PO DAILY ZAIRE Diphenhydramine HCl (Benadryl) 25 mg PO BID ZAIRE Docusate Sodium (Colace) 100 mg PO BID ZAIRE Famotidine (Pepcid) 40 mg PO HS ZAIRE Ferrous Sulfate (Feosol) 324 mg PO DAILY ZAIRE Furosemide (Lasix) 40 mg IVP Q12 ZAIRE Glipizide (Glucotrol) 10 mg PO DAILY ZAIRE Hydralazine HCl (Apresoline) 25 mg PO TID ZAIRE Ceftriaxone Sodium (Rocephin 1 Gram Ivpb) 1 gm in 100 mls @ 100 mls/hr IVPB DAILY ZAIRE PRN Reason: Protocol Insulin Detemir (Levemir) 12 unit SC DAILY [facility] Insulin Human Regular (Humulin R Low) 0 units SC ACHS ZAIRE PRN Reason: Protocol Isosorbide Mononitrate (Imdur Er) 30 mg PO DAILY [facility] Lidocaine (Lidoderm) 1 ea TD DAILY ZAIRE Lisinopril (Zestril) 20 mg PO DAILY ZAIRE Loratadine (Claritin) 10 mg PO DAILY ZAIRE Methylprednisolone (Solu-Medrol) 40 mg IVP Q12 ZAIRE Montelukast Sodium (Singulair) 100 mg PO DAILY [facility] Nitroglycerin (Nitrostat Sl Tab) 0.4 mg SL Q5M PRN PRN Reason: chest pain Non-Formulary Medication (Acetylcysteine [Mucomyst 10% 4ml]) 1 vial IH QID ZAIRE Biotin [Biotin] 1 (Tab (Home Med)) 1 tab PO DAILY ZAIRE Budesonide/Formoterol Fumarate [Symbicort 160-4.5 Mcg Inhaler] (Home Med) 1 puff IH BID ZAIRE Linagliptin [ Tradjenta] 1 Tab ( Home Med) 1 tab PO DAILY ZAIRE Nortriptyline HCl (Pamelor) 10 mg PO TID [facility] Potassium Chloride (K-Dur 20 Meq Er Tab) 20 meq PO DAILY ZAIRE Prasugrel (Effient) 5 mg PO DAILY ZAIRE Sertraline HCl (Zoloft) 100 mg PO DAILY ZAIRE Warfarin Sodium (Coumadin) 4 mg PO 1800 ZAIRE PRN Reason: Protocol - Labs Labs: PT 28.6 SECONDS (9.4-12.5) H 10/10/17 00:20 INR 2.46 (0.93-1.08) H 10/10/17 00:20 APTT 25.5 Seconds (25.1-36.5) 10/09/17 14:20 Most Recent Lab Values WBC 5.3 10^3/ul (4.5-11.0) D 10/09/17 14:20 RBC 3.64 10^6/uL (3.5-6.1) 10/09/17 14:20 Hgb 10.9 g/dL (12.0-16.0) L 10/09/17 14:20 Hct 32.9 % (36.0-48.0) L 10/09/17 14:20 MCV 90.4 fl (80.0-105.0) 10/09/17 14:20 MCH 29.9 pg (25.0-35.0) 10/09/17 14:20 MCHC 33.1 g/dl (31.0-37.0) 10/09/17 14:20 RDW 18.0 % (11.5-14.5) H 10/09/17 14:20 Plt Count 301 10^3/uL (120.0-450.0) 10/09/17 14:20 MPV 11.1 fl (7.0-11.0) H 10/09/17 14:20 Gran % 74.3 % (50.0-68.0) H 10/09/17 14:20 Lymph % (Auto) 18.9 % (22.0-35.0) L 10/09/17 14:20 [place] % (Auto) 5.5 % (1.0-6.0) 10/09/17 14:20 Eos % (Auto) 0.9 % (1.5-5.0) L 10/09/17 14:20 Baso % (Auto) 0.4 % (0.0-3.0) 10/09/17 14:20 Gran # 3.94 (1.4-6.5) 10/09/17 14:20 Lymph # (Auto) 1.0 (1.2-3.4) L 10/09/17 14:20 [place] # (Auto) 0.3 (0.1-0.6) 10/09/17 14:20 Eos # (Auto) 0.1 (0.0-0.7) 10/09/17 14:20 Baso # (Auto) 0.02 K/mm3 (0.0-2.0) 10/09/17 14:20 PT 48.1 SECONDS (9.4-12.5) H 10/12/17 06:30 INR 4.06 (0.93-1.08) H* 10/12/17 06:30 APTT 25.5 Seconds (25.1-36.5) 10/09/17 14:20 Sodium 138 mmol/L (132-148) 10/12/17 06:30 Potassium 3.9 mmol/L (3.6-5.0) 10/12/17 06:30 Chloride 101 mmol/L (98-107) 10/12/17 06:30 Carbon Dioxide 24 mmol/L (21-33) 10/12/17 06:30 Anion Gap 16 (10-20) 10/12/17 06:30 BUN 31 mg/dL (7-21) H 10/12/17 06:30 Creatinine 1.0 mg/dl (0.7-1.2) 10/12/17 06:30 Est GFR ( Amer) > 60 10/12/17 06:30 Est GFR (Non-Af Amer) 55 10/12/17 06:30 POC Glucose (mg/dL) 193 mg/dL (65-110) H 10/12/17 16:39 Random Glucose 194 mg/dL (70-110) H 10/12/17 06:30 Calcium 8.9 mg/dL (8.4-10.5) 10/12/17 06:30 Magnesium 1.7 mg/dL (1.7-2.2) 10/12/17 06:30 Total Bilirubin 1.2 mg/dL (0.2-1.3) 10/09/17 15:30 AST 16 U/L (14-36) 10/09/17 15:30 ALT 26 U/L (7-56) 10/09/17 15:30 Alkaline Phosphatase 79 U/L (38-126) 10/09/17 15:30 Lactate Dehydrogenase 268 U/L (333-699) L 10/09/17 15:30 Total Creatine Kinase < 20 U/L (35-230) L 10/09/17 15:30 Troponin I 0.04 ng/mL D 10/11/17 06:00 NT-Pro-B Natriuret Pep 01387 pg/mL (0-450) H 10/09/17 15:30 Total Protein 6.1 g/dL (5.8-8.3) 10/09/17 15:30 Albumin 3.7 g/dL (3.0-4.8) 10/09/17 15:30 Globulin 2.4 gm/dL 10/09/17 15:30 Albumin/Globulin Ratio 1.6 (1.1-1.8) 10/09/17 15:30 Urine Color Yellow (YELLOW) 10/09/17 23:20 Urine Appearance Sl cloudy (CLEAR) 10/09/17 23:20 Urine pH 6.0 (4.7-8.0) 10/09/17 23:20 Ur Specific [place] 1.020 (1.005-1.035) 10/09/17 23:20 Urine Protein Negative mg/dL (<30 mg/dL) 10/09/17 23:20 Urine Glucose (UA) Negative mg/dL (NEGATIVE) 10/09/17 23:20 Urine Ketones Negative mg/dL (NEGATIVE) 10/09/17 23:20 Urine Blood Negative (NEGATIVE) 10/09/17 23:20 Urine Nitrate Negative (NEGATIVE) 10/09/17 23:20 Urine Bilirubin Negative (NEGATIVE) 10/09/17 23:20 Urine Urobilinogen 0.2 E.U./dL (<1 E.U./dL) 10/09/17 23:20 Ur Leukocyte Esterase Trace Luis/uL (NEGATIVE) H 10/09/17 23:20 Urine RBC Negative /hpf (0-2) 10/09/17 23:20 Urine WBC 1 - 3 /hpf (0-6) 10/09/17 23:20 Ur Epithelial Cells 4 - 5 /hpf (0-5) 10/09/17 23:20 Urine Bacteria Large (NEG) 10/09/17 23:20 Hyaline Casts 2 - 5 /hpf 10/09/17 23:20 - Constitutional Appears: Well, No Acute Distress - Head Exam Head Exam: ATRAUMATIC, NORMAL INSPECTION, NORMOCEPHALIC - Eye Exam Eye Exam: Normal appearance - ENT Exam ENT Exam: Normal External Ear Exam - Neck Exam Neck Exam: Normal Inspection - Respiratory Exam Respiratory Exam: NORMAL BREATHING PATTERN - Cardiovascular Exam Cardiovascular Exam: absent: JVD - GI/Abdominal Exam GI & Abdominal Exam: Soft - Rectal Exam Rectal Exam: Deferred - Exam Additional comments: Deferred. - Extremities Exam Extremities Exam: Normal Inspection - Back Exam Back Exam: NORMAL INSPECTION - Neurological Exam Neurological Exam: Alert, Awake, Oriented x3 - Psychiatric Exam Psychiatric exam: Normal Affect, Normal Mood - Skin Skin Exam: Normal Color Assessment and Plan - Assessment and Plan (Free Text) Assessment: Headache. CHF exacerbation. COPD. HTN. DM II. CAD. PPM. Plan: Tylenol 650 mg PO x 1 Continue present management as per PMD.
--- NOTE | 2017-10-10 08:40 | CARD ---
APPROVED REPORT EKG Measurement Heart [id number] <Conclusion> Electronic ventricular pacemaker Rythm. Fusion Beats.
[2017-10-10] MEDS: Insulin Reg-LOW-Coverage SC SCH ×4 (09:01→22:30)
[2017-10-10] MEDS ORDERED: BIOTIN PO SCH (10:00)
[2017-10-10] MEDS ORDERED: Potassium Chloride 20 mEq ER Tab PO SCH (10:00)
[2017-10-10] MEDS ORDERED: ACETYLCYSTEINE IH SCH (10:00)
[2017-10-10] MEDS ORDERED: Budesonide/Formoterol Fumarate [Symbicort 160-4.5 Mcg Inhaler] (HOME MED) IH SCH (10:00)
[2017-10-10] MEDS: cefTRIAXone 1 gm 1 GM/100 ML BAG IVPB SCH (10:47)
[2017-10-10] MEDS: Insulin Detemir 100 units/ml Vial (Levemir) SC SCH (10:48)
[2017-10-10] MEDS: diltiaZEM 180 mg/24 Hours CD Cap PO SCH (10:49)
[2017-10-10] MEDS: MethylPREDNISolone 40 mg Vial IVP SCH ×2 (10:49→22:33)
[2017-10-10] MEDS: Potassium Chloride 20 mEq ER Tab PO SCH ×3 (10:50→18:35)
[2017-10-10] MEDS: Lidocaine 5% Patch TD SCH (10:52)
[2017-10-10] MEDS: LINAGLIPTIN PO SCH (10:53)
--- NOTE | 2017-10-10 10:57 | HP ---
CHIEF COMPLAINT: Shortness of breath. HISTORY OF PRESENT ILLNESS: Ms. Mallorie Francis is a 72-year-old female with extensive past medical history of congestive heart failure, [place], cardiac stents, pacemaker, COPD, history of heavy smoking, came to the emergency room complaining of worsening of shortness of breath since Friday. The patient was discharged from [facility] on Friday. The patient was supposed to live with her friend. Reported being on oxygen during her time at [facility], but the request for home oxygen was denied by her insurance company due to she is currently smoker and heavy smoker. According to the patient, she stopped smoking 5 days ago. She has been attempting to use a nebulizer treatment at home with her caregiver who is at bedside. The patient is not experiencing any relief. She is experiencing chills, lightheadedness, dizziness, fatigue, coughing, increased phlegm, nausea, decreased appetite, nonbloody diarrhea. Denies fever, chills, numbness, tingling, vision changes, sore throat, facial droop by swelling , PAST MEDICAL HISTORY: COPD, diabetes mellitus type 2, multiple skin discoloration, falls, ileostomy reversal, history of colon resection, anxiety, depression, coronary stents. FAMILY HISTORY: Father and mother noncontributory. HABITS: Former smoker, quit 5 days ago. Alcohol, no. Substance abuse, no. ALLERGIES: THE PATIENT IS ALLERGIC WITH PLAVIX. HOME MEDICATIONS: Acetylcysteine, albuterol, aspirin, biotin, Symbicort, Coreg, digoxin, diltiazem, Benadryl, Colace, Feosol, Lasix, Glucotrol, Levemir, Imdur, Tradjenta, Singular, Nortriptyline, Zantac, Coumadin, Ambien, hydralazine, Tramadol. REVIEW OF SYSTEMS: The patient was seen and examined in the ER code room. Still having shortness of breath, getting oxygen. Feeling fatigue and tired. No nausea, vomiting, diarrhea. No vision changes. No hearing changes. No sore throat. Still having shortness of breath, coughing, sputum white color, wheezing intermittently. No chest pain, palpitation, edema, syncope. According to the patient, she had a little bit of diarrhea, nonbloody. No dysuria, frequency or vaginal discharge. No back pain. No gait changes. No diaphoresis. No adenopathy. PHYSICAL EXAMINATION: VITAL SIGNS: Temperature 97.7, pulse 68, respiratory rate 24, blood pressure 108/64, pulse oximetry 99. HEENT: Head normocephalic, atraumatic. Eyes PERRLA. Extraocular muscles are intact. Conjunctivae clear. Nose patent. Mucous membrane moist. NECK: Supple. No carotid bruit. No JVD or thyromegaly. CHEST: Bilaterally symmetrical. HEART: S1 and S2 positive. LUNGS: Positive wheezing bilaterally. ABDOMEN: Soft. Bowel sounds positive. No organomegaly. EXTREMITIES: No edema. No cyanosis. NEUROLOGICAL: The patient is awake and alert. Moving all 4 extremities. No focal deficits. LABORATORY DATA: White blood cells 5.3, hemoglobin 10.9, hematocrit 32.9, platelets 231. Sodium noted , potassium 3.5, BUN 70, creatinine 0.9, glucose 95. ASSESSMENT AND PLAN: Ms. Mallorie Francis is a 72-year-old lady with anemia; hypokalemia, replaced by emergency room. Came with exacerbation of coronary artery disease, exacerbation of congestive heart failure, history of myocardial infarction, cardiac stents, pacemaker. Now, the patient is complaining about diarrhea also, history of transient ischemic attack, history of renal insufficiency, history of ileostomy reversal in 2010, history of colon resection due to colon cancer. We admitted the patient, oxygen given. Pulmonary and Cardiology consult called. Restarted home medications. Gastrointestinal/deep venous thrombosis prophylaxis. Repeat labs. We will follow up. Tanisha Lebron MD [email or web address]
--- NOTE | 2017-10-10 13:30 | CON ---
DATE: 10/10/2017 INDICATIONS: Shortness of breath, congestive heart failure. HISTORY OF PRESENT ILLNESS: This is a 72-year-old woman well known to me with an extensive past medical and cardiac history, admitted several days after being discharged from [facility] with increased shortness of breath. She was unable to arrange home O2 and began experiencing shortness of breath shortly after discharge. It increased and she came to the emergency room yesterday. She was admitted to telemetry. This morning she feels better. There is no chest pain, orthopnea, PND, syncope, presyncope, lightheadedness, dizziness, or vertigo. There is no palpitations, edema, fever, chills, cough, sputum production, hemoptysis, abdominal pain, nausea, vomiting or constipation. She did describe diarrhea yesterday while in the emergency room. She was also noted lightheadedness and dizziness according to the ER note. These symptoms have resolved however this morning. PAST MEDICAL HISTORY: Notable for coronary artery disease, coronary artery bypass surgery, multiple myocardial infections, coronary interventions, most recently on the right coronary artery - it was a difficult and complex procedure. She has severe LV dysfunction, congestive heart failure, nonsustained ventricular tachycardia. She has an ICD in place. She has a history of paroxysmal atrial fibrillation, hypertension, hyperlipidemia, diabetes, COPD. She was an active smoker until several weeks ago. She is now quitting. She has a history of pulmonary embolus and an extensive colon resection and psychiatric issues including depression. suicidal ideation and gestures in the past. MEDICATIONS: At the time of admission included aspirin, Ambien, hydralazine, Benadryl, Biotin, diltiazem, Colace, Coreg, warfarin, digoxin, DuoNeb, Effient, iron supplementation, Glucotrol, isosorbide, potassium supplementation, Lasix, insulin, Lidoderm patch, Lipitor, Mucomyst, Pamelor, Pepcid, Singulair, Symbicort, Tradjenta, Ultram as needed, albuterol, Xyzal, Zantac, lisinopril, Zoloft. ALLERGIES: SHE NOTES AN ALLERGY TO PLAVIX. SOCIAL HISTORY: She no longer smokes. She does not drink alcohol. She was homeless for a period, but now has a place to go to when she leaves the hospital. FAMILY HISTORY: Noncontributory. REVIEW OF SYSTEMS: A 10-point review of systems is otherwise unremarkable except as noted above. PHYSICAL EXAMINATION GENERAL: She is a well-developed elderly woman lying in bed on telemetry, in no acute distress. VITAL SIGNS: Rhythm is ventricular pacing. She is afebrile. Blood pressure 122/63, respirations 20, O2 sat 95% to 100% on room air and nasal cannula. HEENT: Reveals neck vein distention. No thyromegaly, no carotid bruit. Mucous membranes moist. Conjunctivae are pink. NECK: Supple. LUNGS: Lung coelho rales at the bases, a few scattered rhonchi. HEART: Revealed normal first and second heart sounds. There is a systolic murmur along the left sternal border. The PMI is displaced laterally. ABDOMEN: Soft. Bowel sounds present. No mass, organomegaly, tenderness, rebound, or guarding. No CVA tenderness, no palpable abdominal aortic aneurysm. EXTREMITIES: Revealed no cyanosis or clubbing. There is mild ankle edema. NEUROLOGIC: She was awake, alert and oriented. PSYCHIATRIC: Normal as to mood and affect. SKIN: Warm and dry. No rash or cellulitis. LABORATORY AND IMAGING: EKG demonstrated a V paced rhythm with A sensing. Chest x-ray revealed mild to moderate vascular congestion. White count is normal, hemoglobin 10.9, hematocrit 32.9, platelet count normal. PT 28.6, INR 2.46, PTT 25.5. Electrolytes normal with a potassium of 3.5, BUN and creatinine unremarkable, blood sugar 95, magnesium 1.6. LFTs unremarkable. CK less than 20, troponin 0.06, BNP 20,000. IMPRESSION: Mallorie Francis is a 72-year-old woman admitted several days following discharge from [facility] with increasing shortness of breath, evidence of congestive heart failure, decompensated and COPD, decompensated. PLAN: I will review her old records. She is admitted to telemetry. We will resume her long list of usual medications. We will give her IV Lasix. We will attempt to diurese her and monitor I's and O's. We will review her potassium and monitor her potassium and magnesium levels. We will supplement magnesium. She can be out of bed to chair. We will check stool for occult blood. She will have a pulmonary consultation. She will have a social service evaluation. We will attempt to arrange home O2 for her. I will follow along with you. I will make additional recommendations based on her clinical course. Nas Kemp MD [facility]
[2017-10-10] MEDS: Acetylcysteine 20% Inhal Soln (4ml) INH SCH (19:49)
[2017-10-10] MEDS: Arformoterol 15 mcg/2 ml Inh Sol IH SCH (19:50)
--- NOTE | 2017-10-11 05:03 | CON ---
DATE: PULMONARY CONSULTATION REFERRING PHYSICIAN: Tanisha Lebron MD REASON FOR CONSULTATION: Chronic obstructive lung disease with cough and shortness of breath, suspected sleep apnea syndrome, refused CPAP use. HISTORY OF PRESENT ILLNESS: This is a 72-year-old female well known to me from previous admission, has a known history of chronic obstructive lung disease, cardiomyopathy, decreased LV function, coronary artery disease, history of coronary stent, history of DE, history of colon resection in the past, anxiety, depression, being homeless, has a history of heavy smoking. From the last few weeks, she had been in [facility] where she has cough, shortness of breath, clear sputum. According to the patient, she stopped smoking about 5 days ago. No vomiting, no hematuria, no diarrhea, no leg swelling reported. PAST MEDICAL HISTORY: As per history of present illness. ALLERGIES: TO PLAVIX. SOCIAL HISTORY: Active smoker, just stopped smoking 5 days ago. Denies any alcohol use. FAMILY HISTORY: No significant cardiopulmonary disease reported. MEDICATIONS: She is on hydralazine 25 mg three times a day, aspirin 81 mg daily, Benadryl 25 mg twice a day, Biotin one tab daily, receiving Symbicort 160/4.5 two puffs twice a day, Cardizem CD 180 mg daily, Claritin 10 mg daily, Colace 100 mg daily, Coreg 25 mg twice a day, Coumadin 4 mg daily, digoxin 0.125 mg three times a week, DuoNeb every 6 hours, Effient 5 mg daily, ferrous sulfate 324 mg daily, glyburide 10 mg daily, insulin coverage, Imdur 30 mg daily, potassium 20 mEq three times a day, Lasix 40 mg twice a day, Levemir 12 units subcutaneous daily, Lidoderm patch to affected area, Tradjenta one tablet daily, Lipitor 20 mg daily, Nitrostat p.r.n., nortriptyline 10 mg three times a day, Pepcid 40 mg daily, Rocephin 1 g daily, Singulair 10 mg daily, Solu-Medrol 40 mg every 12 hours, Zestril 20 mg daily, Zoloft 100 mg daily. REVIEW OF SYSTEMS: No headache, has some rhinitis, cough, sputum production, short of breath, on and off chest pain, has abdominal hernia. No significant leg swelling. No diarrhea. PHYSICAL EXAMINATION: GENERAL: Lying in the bed, mild distress secondary to cough and shortness of breath. VITAL SIGNS: Temperature is 98, heart rate 65, respiratory rate is 20, blood pressure 107/56, pulse ox 99% on nasal cannula. HEENT: Moist mucous membrane. Crowded airway. NECK: Supple. No JVD. LUNGS: Has a crackles at the bases, expiratory wheezing. HEART: S1 and S2. ABDOMEN: Soft, nontender, nondistended, has a ventral hernia. EXTREMITIES: There is no edema. NEUROLOGICALLY: Awake, alert, follows simple commands. LABORATORY DATA: Shows hemoglobin 10.9, hematocrit 32.9, WBC 5.3, platelet is 301. INR 2.46. Sodium 138, potassium 3.5, chloride 104, bicarbonate 21, BUN 17, creatinine 0.9, glucose 185, calcium 9, magnesium 1.6, AST 16, ALT 26, alk phos is 79. LDH 268. Troponin 0.01. ProBNP 20,000. Albumin 3.7. Chest x-ray done in ER shows [id number] vascular congestion. IMPRESSION AND PLAN: Combination of cardiac and pulmonary decompensation, has cardiomyopathy, decreased LV function, coronary artery disease, history of coronary stent, history of myocardial infarction, also has a chronic obstructive lung disease, active smoker. There is a component of sleep apnea syndrome, refused to use CPAP/BiPAP, depression, atrial fibrillation, diabetes, history of L4 compression fracture, history of rib fracture secondary to fall. I agree with Dr. Lebron with the present management. Continue IV steroids. Continue antibiotics, diuretics, afterload last picker, gastric prophylaxis, anticoagulation, may give a nicotine patch. Follow up labs the morning. Thank you and we will follow with you. Rosina Gabriel MD
[2017-10-11] MEDS ORDERED: guaiFENesin 100 mg/5 ml Syrup UD PO PRN (06:46)
[2017-10-11] MEDS: Arformoterol 15 mcg/2 ml Inh Sol IH SCH ×3 (06:51→20:41)
[2017-10-11] MEDS: Albuterol-Ipratrop 3 mg / 0.5 (3 ml) UD IH PRN ×3 (06:51→20:42)
[2017-10-11] MEDS: Acetylcysteine 20% Inhal Soln (4ml) INH SCH ×3 (06:51→20:40)
[2017-10-11] MEDS ORDERED: guaiFENesin 100 mg/5 ml Syrup UD PO ONE (06:56)
[2017-10-11 07:30] LABS: TROPONIN I 0.04 ng/mL
[2017-10-11 07:34] LABS: INR 2.67 (0.93-1.08); PROTHROMBIN TIME 31.3 SECONDS (9.4-12.5)
[2017-10-11 08:13] LABS: BLOOD UREA NITROGEN 29 mg/dL (7-21); GFR AFRICAN-AMERICAN > 60; GFR NON-AFRICAN AMERICAN 55
--- NOTE | 2017-10-11 08:13 | CP.PCM.PN ---
Subjective - Date & Time of Evaluation Date of Evaluation: 10/11/17 Time of Evaluation: 07:00 - Subjective Subjective: Stable on 2R. SOB episodes last night and this AM. Some chest discomfort. V/S noted. V. paced. Sats = 100% PE: Lungs: rhonchi Cor.: S1S2 Ext.: no edema Neuro.: alert Labs: INR 2.67. Trop - 0.04, BMP pending Objective - Vital Signs/Intake and Output Vital Signs (last 24 hours): Temp Pulse Resp BP Pulse Ox 97.6 F 66 18 109/61 100 10/11/17 00:01 10/11/17 00:01 10/11/17 00:01 10/11/17 00:01 10/11/17 00:01 - Medications Medications: Current Medications Acetylcysteine (Acetylcysteine 20%) 3 ml INH BID [facility] Last Admin: 10/11/17 06:51 Dose: 3 ml Albuterol/Ipratropium (Duoneb 3 Mg/0.5 Mg (3 Ml) Ud) 3 ml IH [id number] PRN PRN Reason: Shortness of Breath Last Admin: 10/11/17 06:51 Dose: 3 ml Arformoterol Tartrate (Brovana) 15 mcg IH [id number] [facility] Last Admin: 10/11/17 06:51 Dose: 15 mcg Aspirin (Aspirin Chewable) 81 mg PO DAILY [facility] Last Admin: 10/10/17 10:51 Dose: 81 mg Atorvastatin Calcium (Lipitor) 20 mg PO DIN [facility] Last Admin: 10/10/17 18:36 Dose: 20 mg Carvedilol (Coreg) 25 mg PO BID [facility] Last Admin: 10/10/17 18:35 Dose: 25 mg Digoxin (Digoxin) 0.125 mg PO QOTHERDAY [facility] Diltiazem HCl (Cardizem Cd) 180 mg PO DAILY [facility] Last Admin: 10/10/17 10:49 Dose: 180 mg Diphenhydramine HCl (Benadryl) 25 mg PO BID [facility] Last Admin: 10/10/17 22:44 Dose: 25 mg Docusate Sodium (Colace) 100 mg PO BID [facility] Last Admin: 10/10/17 19:12 Dose: Not Given Famotidine (Pepcid) 40 mg PO HS [facility] Last Admin: 10/10/17 22:33 Dose: 40 mg Ferrous Sulfate (Feosol) 324 mg PO DAILY [facility] Last Admin: 10/10/17 10:50 Dose: 324 mg Furosemide (Lasix) 40 mg IVP Q12 [facility] Last Admin: 10/10/17 22:35 Dose: 40 mg Glipizide (Glucotrol) 10 mg PO DAILY [facility] Last Admin: 10/10/17 10:50 Dose: 10 mg Hydralazine HCl (Apresoline) 25 mg PO TID [facility] Last Admin: 10/10/17 18:29 Dose: 25 mg Ceftriaxone Sodium (Rocephin 1 Gram Ivpb) 1 gm in 100 mls @ 100 mls/hr IVPB DAILY [facility] PRN Reason: Protocol Last Admin: 10/10/17 10:47 Dose: 100 mls/hr Insulin Detemir (Levemir) 12 unit SC DAILY [facility] Last Admin: 10/10/17 10:48 Dose: 12 unit Insulin Human Regular (Humulin R Low) 0 units SC ACHS [facility] PRN Reason: Protocol Last Admin: 10/10/17 22:30 Dose: Not Given Isosorbide Mononitrate (Imdur Er) 30 mg PO DAILY [facility] Last Admin: 10/10/17 10:51 Dose: 30 mg Lidocaine (Lidoderm) 1 ea TD DAILY [facility] Last Admin: 10/10/17 10:52 Dose: 1 ea Lisinopril (Zestril) 20 mg PO DAILY [facility] Last Admin: 10/10/17 10:51 Dose: 20 mg Loratadine (Claritin) 10 mg PO DAILY [facility] Last Admin: 10/10/17 10:51 Dose: 10 mg Methylprednisolone (Solu-Medrol) 40 mg IVP Q12 [facility] Last Admin: 10/10/17 22:33 Dose: 40 mg Montelukast Sodium (Singulair) 100 mg PO DAILY [facility] Last Admin: 10/10/17 10:53 Dose: Not Given Nicotine (Nicoderm Cq) 1 patch TD DAILY [facility] Nitroglycerin (Nitrostat Sl Tab) 0.4 mg SL Q5M PRN PRN Reason: chest pain Last Admin: 10/11/17 07:13 Dose: 0.4 mg Linagliptin [ Tradjenta] 1 Tab ( Home Med) 1 tab PO DAILY [facility] Last Admin: 10/10/17 10:53 Dose: Not Given Nortriptyline HCl (Pamelor) 10 mg PO TID [facility] Last Admin: 10/10/17 18:35 Dose: 10 mg Potassium Chloride (K-Dur 20 Meq Er Tab) 20 meq PO TID [facility] Last Admin: 10/10/17 18:35 Dose: 20 meq Prasugrel (Effient) 5 mg PO DAILY [facility] Last Admin: 10/10/17 11:14 Dose: 5 mg Sertraline HCl (Zoloft) 100 mg PO DAILY [facility] Last Admin: 10/10/17 11:01 Dose: Not Given Warfarin Sodium (Coumadin) 4 mg PO 1800 [facility] PRN Reason: Protocol Last Admin: 10/10/17 18:35 Dose: 4 mg - Labs Labs: PT 31.3 SECONDS (9.4-12.5) H 10/11/17 06:00 INR 2.67 (0.93-1.08) H 10/11/17 06:00 APTT 25.5 Seconds (25.1-36.5) 10/09/17 14:20 Assessment and Plan - Assessment and Plan (Free Text) Assessment: Dyspnea/Chest Pain CHF CAD/MIs/CABG/PCIs/Severe LVD COPD/Former Smoker, just quit several weeks ago ICD NSVT/PAF HBP HLD Diabetes H/O PE, extensive colon resection Psych: depression, suicidal ideation and gestures Plan: IV Lasix Resp. Tx. Await AM labs As per pulmonary, Dr. Lebron Monitor: I/O, labs, INRs, sats., etc. [employer] Eval. [facility] Eval.
[2017-10-11] MEDS: Insulin Reg-LOW-Coverage SC SCH ×4 (08:15→22:58)
[2017-10-11] MEDS: MethylPREDNISolone 40 mg Vial IVP SCH ×2 (09:16→21:37)
[2017-10-11] MEDS: cefTRIAXone 1 gm 1 GM/100 ML BAG IVPB SCH (09:17)
[2017-10-11] MEDS: Insulin Detemir 100 units/ml Vial (Levemir) SC SCH (09:19)
[2017-10-11] MEDS: Lidocaine 5% Patch TD SCH (09:19)
[2017-10-11] MEDS: Digoxin 125 mcg (0.125 mg) Tab PO SCH (09:31)
[2017-10-11] MEDS: Potassium Chloride 20 mEq ER Tab PO SCH ×3 (09:31→17:17)
[2017-10-11] MEDS: diltiaZEM 180 mg/24 Hours CD Cap PO SCH (09:31)
[2017-10-11] MEDS: LINAGLIPTIN PO SCH (09:38)
--- NOTE | 2017-10-11 13:38 | CP.PCM.PN ---
Subjective - Date & Time of Evaluation Date of Evaluation: 10/11/17 Time of Evaluation: 13:15 - Subjective Subjective: c/o intermittent episodes anginal discomfort relieved by SL NTG, denies SOB, no N/V, no diaphoresis Objective - Vital Signs/Intake and Output Vital Signs (last 24 hours): Temp Pulse Resp BP Pulse Ox 97.6 F 61 18 112/58 L 100 10/11/17 12:00 10/11/17 12:00 10/11/17 12:00 10/11/17 12:00 10/11/17 00:01 - Medications Medications: Current Medications Acetylcysteine (Acetylcysteine 20%) 3 ml INH BID [facility] Last Admin: 10/11/17 09:50 Dose: Not Given Albuterol/Ipratropium (Duoneb 3 Mg/0.5 Mg (3 Ml) Ud) 3 ml IH [id number] PRN PRN Reason: Shortness of Breath Last Admin: 10/11/17 06:51 Dose: 3 ml Arformoterol Tartrate (Brovana) 15 mcg IH [id number] [facility] Last Admin: 10/11/17 09:50 Dose: Not Given Aspirin (Aspirin Chewable) 81 mg PO DAILY [facility] Last Admin: 10/11/17 09:32 Dose: 81 mg Atorvastatin Calcium (Lipitor) 20 mg PO DIN [facility] Last Admin: 10/10/17 18:36 Dose: 20 mg Carvedilol (Coreg) 25 mg PO BID [facility] Last Admin: 10/11/17 09:33 Dose: 25 mg Digoxin (Digoxin) 0.125 mg PO QOTHERDAY [facility] Last Admin: 10/11/17 09:31 Dose: 0.125 mg Diltiazem HCl (Cardizem Cd) 180 mg PO DAILY [facility] Last Admin: 10/11/17 09:31 Dose: 180 mg Diphenhydramine HCl (Benadryl) 25 mg PO BID [facility] Last Admin: 10/11/17 09:32 Dose: 25 mg Docusate Sodium (Colace) 100 mg PO BID [facility] Last Admin: 10/11/17 09:32 Dose: 100 mg Famotidine (Pepcid) 40 mg PO HS [facility] Last Admin: 10/10/17 22:33 Dose: 40 mg Ferrous Sulfate (Feosol) 324 mg PO DAILY [facility] Last Admin: 04/28/18 09:32 Dose: 324 mg Furosemide (Lasix) 40 mg IVP Q12 [facility] Last Admin: 10/11/17 09:16 Dose: 40 mg Glipizide (Glucotrol) 10 mg PO DAILY [facility] Last Admin: 10/11/17 09:32 Dose: 10 mg Hydralazine HCl (Apresoline) 25 mg PO TID [facility] Last Admin: 10/11/17 09:32 Dose: 25 mg Ceftriaxone Sodium (Rocephin 1 Gram Ivpb) 1 gm in 100 mls @ 100 mls/hr IVPB DAILY [facility] PRN Reason: Protocol Last Admin: 10/11/17 09:17 Dose: 100 mls/hr Insulin Detemir (Levemir) 12 unit SC DAILY [facility] Last Admin: 10/11/17 09:19 Dose: 12 unit Insulin Human Regular (Humulin R Low) 0 units SC ACHS [facility] PRN Reason: Protocol Last Admin: 10/11/17 12:36 Dose: 2 units Isosorbide Mononitrate (Imdur Er) 30 mg PO BID [facility] Last Admin: 10/11/17 09:33 Dose: 30 mg Lidocaine (Lidoderm) 1 ea TD DAILY [facility] Last Admin: 10/11/17 09:19 Dose: 1 ea Lisinopril (Zestril) 20 mg PO DAILY [facility] Last Admin: 10/11/17 09:31 Dose: 20 mg Loratadine (Claritin) 10 mg PO DAILY [facility] Last Admin: 10/11/17 09:32 Dose: 10 mg Methylprednisolone (Solu-Medrol) 40 mg IVP Q12 [facility] Last Admin: 10/11/17 09:16 Dose: 40 mg Montelukast Sodium (Singulair) 100 mg PO DAILY [facility] Last Admin: 10/11/17 09:38 Dose: Not Given Nicotine (Nicoderm Cq) 1 patch TD DAILY [facility] Last Admin: 10/11/17 09:18 Dose: Not Given Nitroglycerin (Nitrostat Sl Tab) 0.4 mg SL Q5M PRN PRN Reason: chest pain Last Admin: 10/11/17 07:13 Dose: 0.4 mg Linagliptin [ Tradjenta] 1 Tab ( Home Med) 1 tab PO DAILY [facility] Last Admin: 10/11/17 09:38 Dose: Not Given Nortriptyline HCl (Pamelor) 10 mg PO TID [facility] Last Admin: 10/11/17 09:32 Dose: 10 mg Potassium Chloride (K-Dur 20 Meq Er Tab) 20 meq PO TID [facility] Last Admin: 10/11/17 09:31 Dose: 20 meq Prasugrel (Effient) 5 mg PO DAILY [facility] Last Admin: 10/11/17 09:33 Dose: 5 mg Sertraline HCl (Zoloft) 100 mg PO DAILY [facility] Last Admin: 10/11/17 09:32 Dose: 100 mg Warfarin Sodium (Coumadin) 4 mg PO 1800 [facility] PRN Reason: Protocol Last Admin: 10/10/17 18:35 Dose: 4 mg - Labs Labs: 10/11/17 06:00 PT 31.3 SECONDS (9.4-12.5) H 10/11/17 06:00 INR 2.67 (0.93-1.08) H 10/11/17 06:00 APTT 25.5 Seconds (25.1-36.5) 10/09/17 14:20 - Respiratory Exam Respiratory Exam: Clear to Ausculation Bilateral - Cardiovascular Exam Cardiovascular Exam: REGULAR RHYTHM - GI/Abdominal Exam GI & Abdominal Exam: Soft, Normal Bowel Sounds - Back Exam Back Exam: NORMAL INSPECTION - Neurological Exam Neurological Exam: Alert, Awake - Skin Skin Exam: Dry, Warm Assessment and Plan (1) COPD (chronic obstructive pulmonary disease) Status: Chronic (2) CHF exacerbation Status: Chronic (3) Chest pain Status: Chronic (4) Atrial fibrillation Status: Chronic (5) Congestive heart failure Status: Chronic (6) Diabetes mellitus Status: Chronic - Assessment and Plan (Free Text) Plan: continue cardiology f/u Dr. Kemp, SHANTI for DC planning
--- NOTE | 2017-10-11 18:58 | PN ---
DATE: 10/11/2017 PULMONARY PROGRESS NOTE REFERRING PHYSICIAN: Tanisha Lebron MD. SUBJECTIVE: Patient is lying in the bed, head at 45 degrees. Feels better. Decreased cough. Decreased shortness of breath. Decreased chest pain. No nausea, no vomiting, no diarrhea. No leg pain or leg swelling. OBJECTIVE: GENERAL: In no acute distress. VITAL SIGNS: Temperature is 98, heart rate is 68, respiratory rate is 20, blood pressure 112/58, pulse ox 96% on 2 liters nasal cannula. HEENT: Moist mucous membrane. No ulcer or thrush noted. NECK: Supple. No JVD. LUNGS: Have scattered rhonchi. There is prolonged expiratory phase. HEART: S1 and S2. ABDOMEN: Soft, nontender, no organomegaly. EXTREMITIES: There is no edema. NEUROLOGIC: Awake, alert, follows simple command. MEDICATIONS: She is on Mucomyst inhaled twice a day, hydralazine 25 mg three times a day, aspirin 81 mg daily, Benadryl 25 mg twice a day, Brovana inhaled twice a day, Cardizem 180 mg daily, Claritin 10 mg daily, Colace 100 mg twice a day, Coreg 25 mg twice a day, Coumadin 4 mg daily, digoxin 0.125 mg three times daily, DuoNeb every 6 hour p.r.n., Effient 5 mg daily, ferrous sulfate 324 mg daily, glipizide 10 mg daily, insulin coverage, Imdur 30 mg twice a day, potassium 20 mEq three times a day, Lasix 40 mg twice a day, Levemir 14 units subcu daily, Lidoderm patch daily, Tradjenta one tablet daily, Lipitor 20 mg daily, Nicoderm patch is daily, nitroglycerin p.r.n. basis, nortriptyline 10 mg three times a day, Pepcid 40 mg at bedtime, Rocephin 1 g daily, Singulair 10 mg daily, Solu-Medrol 40 mg every 12 hour, Zestril 20 mg daily, Zoloft 100 mg daily. Medication reviewed and noted. LABORATORY DATA: INR is 2.67. Sodium 138, potassium 4.4, chloride 102, bicarbonate 24, BUN 29, creatinine 1, glucose 188, calcium is 9. Troponin is 0.04. IMPRESSION AND PLAN: A combination of cardiac and pulmonary decompensation, has cardiomyopathy with decreased left ventricular function and coronary artery disease, history of coronary stent, also chronic obstructive lung disease, recently stopped smoking, also may have a component of sleep apnea syndrome, but refused to use CPAP recently, had an L4 compression fracture with rib fractures. Continue IV and inhaled bronchodilator. Keep head at 45 degrees. Sleep apnea precaution. Careful with sedation. Gastric prophylaxis. Anticoagulation placed on nicotine patch. Thank you and we will follow with you. Rosina Gabriel MD
[2017-10-12 07:37] LABS: PROTHROMBIN TIME 48.1 SECONDS (9.4-12.5)
[2017-10-12 07:39] LABS: INR 4.06 (0.93-1.08)
[2017-10-12 07:40] LABS: BLOOD UREA NITROGEN 31 mg/dL (7-21); CALCIUM 8.9 mg/dL (8.4-10.5); GFR AFRICAN-AMERICAN > 60; GFR NON-AFRICAN AMERICAN 55
--- NOTE | 2017-10-12 07:50 | CP.PCM.PN ---
Subjective - Date & Time of Evaluation Date of Evaluation: 10/12/17 Time of Evaluation: 07:00 - Subjective Subjective: Stable on 2R. She feels much better.No CP or SOB. + ambulation yesterday V/S noted. V. paced. Sats = 100% PE: Lungs: rhonchi Cor.: S1S2 Ext.: no edema Neuro.: alert Labs noted: INR = 4.06, K+= 3.9, Mg.++= 1.7 Objective - Vital Signs/Intake and Output Vital Signs (last 24 hours): Temp Pulse Resp BP Pulse Ox 97.9 F 66 20 120/71 97 10/12/17 05:57 10/12/17 05:57 10/12/17 05:57 10/12/17 05:57 10/12/17 05:57 Intake and Output: 10/12/17 10/12/17 06:59 18:59 Intake Total 360 Balance 360 - Medications Medications: Current Medications Acetylcysteine (Acetylcysteine 20%) 3 ml INH BID [facility] Last Admin: 10/11/17 20:40 Dose: 3 ml Albuterol/Ipratropium (Duoneb 3 Mg/0.5 Mg (3 Ml) Ud) 3 ml IH [id number] PRN PRN Reason: Shortness of Breath Last Admin: 10/11/17 20:42 Dose: 3 ml Arformoterol Tartrate (Brovana) 15 mcg IH [id number] [facility] Last Admin: 10/11/17 20:41 Dose: 15 mcg Aspirin (Aspirin Chewable) 81 mg PO DAILY [facility] Last Admin: 10/11/17 09:32 Dose: 81 mg Atorvastatin Calcium (Lipitor) 20 mg PO DIN [facility] Last Admin: 10/11/17 17:15 Dose: 20 mg Carvedilol (Coreg) 25 mg PO BID [facility] Last Admin: 10/11/17 17:16 Dose: 25 mg Digoxin (Digoxin) 0.125 mg PO QOTHERDAY [facility] Last Admin: 10/11/17 09:31 Dose: 0.125 mg Diltiazem HCl (Cardizem Cd) 180 mg PO DAILY [facility] Last Admin: 10/11/17 09:31 Dose: 180 mg Diphenhydramine HCl (Benadryl) 25 mg PO BID [facility] Last Admin: 10/11/17 17:15 Dose: 25 mg Docusate Sodium (Colace) 100 mg PO BID [facility] Last Admin: 10/11/17 17:15 Dose: 100 mg Famotidine (Pepcid) 40 mg PO HS [facility] Last Admin: 10/11/17 21:37 Dose: 40 mg Ferrous Sulfate (Feosol) 324 mg PO DAILY [facility] Last Admin: 10/11/17 09:32 Dose: 324 mg Furosemide (Lasix) 40 mg IVP Q12 [facility] Last Admin: 10/11/17 21:37 Dose: 40 mg Glipizide (Glucotrol) 10 mg PO DAILY [facility] Last Admin: 10/11/17 09:32 Dose: 10 mg Hydralazine HCl (Apresoline) 25 mg PO TID [facility] Last Admin: 10/11/17 17:16 Dose: 25 mg Ceftriaxone Sodium (Rocephin 1 Gram Ivpb) 1 gm in 100 mls @ 100 mls/hr IVPB DAILY [facility] PRN Reason: Protocol Last Admin: 10/11/17 09:17 Dose: 100 mls/hr Insulin Detemir (Levemir) 12 unit SC DAILY [facility] Last Admin: 10/11/17 09:19 Dose: 12 unit Insulin Human Regular (Humulin R Low) 0 units SC ACHS [facility] PRN Reason: Protocol Last Admin: 10/11/17 22:58 Dose: Not Given Isosorbide Mononitrate (Imdur Er) 30 mg PO BID [facility] Last Admin: 10/11/17 17:16 Dose: 30 mg Lidocaine (Lidoderm) 1 ea TD DAILY [facility] Last Admin: 10/11/17 09:19 Dose: 1 ea Lisinopril (Zestril) 20 mg PO DAILY [facility] Last Admin: 10/11/17 09:31 Dose: 20 mg Loratadine (Claritin) 10 mg PO DAILY [facility] Last Admin: 10/11/17 09:32 Dose: 10 mg Methylprednisolone (Solu-Medrol) 40 mg IVP Q12 [facility] Last Admin: 10/11/17 21:37 Dose: 40 mg Montelukast Sodium (Singulair) 100 mg PO DAILY [facility] Last Admin: 10/11/17 09:38 Dose: Not Given Nicotine (Nicoderm Cq) 1 patch TD DAILY [facility] Last Admin: 10/11/17 09:18 Dose: Not Given Nitroglycerin (Nitrostat Sl Tab) 0.4 mg SL Q5M PRN PRN Reason: chest pain Last Admin: 10/11/17 16:56 Dose: 0.4 mg Linagliptin [ Tradjenta] 1 Tab ( Home Med) 1 tab PO DAILY [facility] Last Admin: 10/11/17 09:38 Dose: Not Given Nortriptyline HCl (Pamelor) 10 mg PO TID [facility] Last Admin: 10/11/17 17:16 Dose: 10 mg Potassium Chloride (K-Dur 20 Meq Er Tab) 20 meq PO TID [facility] Last Admin: 10/11/17 17:17 Dose: 20 meq Prasugrel (Effient) 5 mg PO DAILY [facility] Last Admin: 10/11/17 09:33 Dose: 5 mg Sertraline HCl (Zoloft) 100 mg PO DAILY [facility] Last Admin: 10/11/17 09:32 Dose: 100 mg Warfarin Sodium (Coumadin) 4 mg PO 1800 [facility] PRN Reason: Protocol Last Admin: 10/11/17 17:16 Dose: 4 mg - Labs Labs: 10/12/17 06:30 PT 48.1 SECONDS (9.4-12.5) H 10/12/17 06:30 INR 4.06 (0.93-1.08) H* 10/12/17 06:30 APTT 25.5 Seconds (25.1-36.5) 10/09/17 14:20 Assessment and Plan - Assessment and Plan (Free Text) Assessment: Dyspnea/Chest Pain CHF CAD/MIs/CABG/PCIs/Severe LVD COPD/Former Smoker, just quit several weeks ago ICD NSVT/PAF HBP HLD Diabetes H/O PE, extensive colon resection Psych: depression, suicidal ideation and gestures Plan: IV Lasix Resp. Tx. Hold warfarin and monitor INRs daily As per pulmonary, Dr. Lebron Monitor: I/O, labs, INRs, sats., etc. 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 TCU Eval. OOB as lou
[2017-10-12] MEDS: Insulin Reg-LOW-Coverage SC SCH ×4 (08:03→21:45)
[2017-10-12] MEDS: Arformoterol 15 mcg/2 ml Inh Sol IH SCH ×3 (08:13→21:15)
[2017-10-12] MEDS: Acetylcysteine 20% Inhal Soln (4ml) INH SCH ×4 (08:14→21:15)
[2017-10-12] MEDS: Potassium Chloride 20 mEq ER Tab PO SCH ×3 (09:31→17:40)
[2017-10-12] MEDS: diltiaZEM 180 mg/24 Hours CD Cap PO SCH (09:32)
[2017-10-12] MEDS: Insulin Detemir 100 units/ml Vial (Levemir) SC SCH (09:33)
[2017-10-12] MEDS: cefTRIAXone 1 gm 1 GM/100 ML BAG IVPB SCH (09:34)
[2017-10-12] MEDS: Lidocaine 5% Patch TD SCH (09:34)
[2017-10-12] MEDS: LINAGLIPTIN PO SCH (09:34)
[2017-10-12] MEDS: MethylPREDNISolone 40 mg Vial IVP SCH ×2 (09:35→21:43)
--- NOTE | 2017-10-12 11:58 | CP.PCM.PN ---
Subjective - Date & Time of Evaluation Date of Evaluation: 10/12/17 Time of Evaluation: 11:20 - Subjective Subjective: NAD, denies chest pain, c/o cough productive of yellow sputum, no hemoptysis, no SOB Objective - Vital Signs/Intake and Output Vital Signs (last 24 hours): Temp Pulse Resp BP Pulse Ox 97.9 F 74 20 114/54 L 97 10/12/17 05:57 10/12/17 09:33 10/12/17 05:57 10/12/17 09:35 10/12/17 05:57 Intake and Output: 10/12/17 10/12/17 06:59 18:59 Intake Total 360 Balance 360 - Medications Medications: Current Medications Acetylcysteine (Acetylcysteine 20%) 3 ml INH BID [facility] Last Admin: 10/12/17 09:03 Dose: Not Given Albuterol/Ipratropium (Duoneb 3 Mg/0.5 Mg (3 Ml) Ud) 3 ml IH [id number] PRN PRN Reason: Shortness of Breath Last Admin: 10/11/17 20:42 Dose: 3 ml Arformoterol Tartrate (Brovana) 15 mcg IH [id number] [facility] Last Admin: 10/12/17 08:41 Dose: 15 mcg Aspirin (Aspirin Chewable) 81 mg PO DAILY [facility] Last Admin: 10/12/17 09:31 Dose: 81 mg Atorvastatin Calcium (Lipitor) 20 mg PO DIN [facility] Last Admin: 10/11/17 17:15 Dose: 20 mg Carvedilol (Coreg) 25 mg PO BID [facility] Last Admin: 10/12/17 09:33 Dose: 25 mg Digoxin (Digoxin) 0.125 mg PO QOTHERDAY [facility] Last Admin: 10/11/17 09:31 Dose: 0.125 mg Diltiazem HCl (Cardizem Cd) 180 mg PO DAILY [facility] Last Admin: 10/12/17 09:32 Dose: 180 mg Diphenhydramine HCl (Benadryl) 25 mg PO BID [facility] Last Admin: 10/12/17 09:31 Dose: 25 mg Docusate Sodium (Colace) 100 mg PO BID [facility] Last Admin: 10/12/17 09:31 Dose: 100 mg Famotidine (Pepcid) 40 mg PO HS [facility] Last Admin: 10/11/17 21:37 Dose: 40 mg Ferrous Sulfate (Feosol) 324 mg PO DAILY [facility] Last Admin: 10/12/17 09:31 Dose: 324 mg Furosemide (Lasix) 40 mg IVP Q12 [facility] Last Admin: 10/12/17 09:35 Dose: 40 mg Glipizide (Glucotrol) 10 mg PO DAILY [facility] Last Admin: 10/12/17 09:33 Dose: 10 mg Hydralazine HCl (Apresoline) 25 mg PO TID [facility] Last Admin: 10/12/17 09:31 Dose: 25 mg Ceftriaxone Sodium (Rocephin 1 Gram Ivpb) 1 gm in 100 mls @ 100 mls/hr IVPB DAILY [facility] PRN Reason: Protocol Last Admin: 10/12/17 09:34 Dose: 100 mls/hr Insulin Detemir (Levemir) 12 unit SC DAILY [facility] Last Admin: 10/12/17 09:33 Dose: 12 unit Insulin Human Regular (Humulin R Low) 0 units SC ACHS [facility] PRN Reason: Protocol Last Admin: 10/12/17 08:03 Dose: 1 units Isosorbide Mononitrate (Imdur Er) 30 mg PO BID [facility] Last Admin: 10/12/17 09:41 Dose: 30 mg Lidocaine (Lidoderm) 1 ea TD DAILY [facility] Last Admin: 10/12/17 09:34 Dose: 1 ea Lisinopril (Zestril) 20 mg PO DAILY [facility] Last Admin: 10/12/17 09:33 Dose: 20 mg Loratadine (Claritin) 10 mg PO DAILY [facility] Last Admin: 10/12/17 09:30 Dose: 10 mg Methylprednisolone (Solu-Medrol) 40 mg IVP Q12 [facility] Last Admin: 10/12/17 09:35 Dose: 40 mg Montelukast Sodium (Singulair) 10 mg PO DAILY [facility] Last Admin: 10/12/17 10:18 Dose: 10 mg Nicotine (Nicoderm Cq) 1 patch TD DAILY [facility] Last Admin: 10/12/17 09:34 Dose: Not Given Nitroglycerin (Nitrostat Sl Tab) 0.4 mg SL Q5M PRN PRN Reason: chest pain Last Admin: 10/11/17 16:56 Dose: 0.4 mg Linagliptin [ Tradjenta] 1 Tab ( Home Med) 1 tab PO DAILY [facility] Last Admin: 10/12/17 09:34 Dose: Not Given Nortriptyline HCl (Pamelor) 10 mg PO TID [facility] Last Admin: 10/12/17 09:33 Dose: 10 mg Potassium Chloride (K-Dur 20 Meq Er Tab) 20 meq PO TID [facility] Last Admin: 10/12/17 09:31 Dose: 20 meq Prasugrel (Effient) 5 mg PO DAILY [facility] Last Admin: 10/12/17 09:33 Dose: 5 mg Sertraline HCl (Zoloft) 100 mg PO DAILY [facility] Last Admin: 10/12/17 09:33 Dose: 100 mg Warfarin Sodium (Coumadin) 4 mg PO 1800 [facility] PRN Reason: Protocol Last Admin: 10/11/17 17:16 Dose: 4 mg - Labs Labs: 10/12/17 06:30 PT 48.1 SECONDS (9.4-12.5) H 10/12/17 06:30 INR 4.06 (0.93-1.08) H* 10/12/17 06:30 APTT 25.5 Seconds (25.1-36.5) 10/09/17 14:20 - Respiratory Exam Respiratory Exam: Rhonchi - Cardiovascular Exam Cardiovascular Exam: REGULAR RHYTHM - GI/Abdominal Exam GI & Abdominal Exam: Soft, Normal Bowel Sounds - Extremities Exam Extremities Exam: Normal Inspection - Neurological Exam Neurological Exam: Alert, Awake - Skin Skin Exam: Dry, Warm Assessment and Plan (1) COPD (chronic obstructive pulmonary disease) Status: Chronic (2) CHF exacerbation Status: Chronic (3) Chest pain Status: Chronic (4) Atrial fibrillation Status: Chronic (5) Congestive heart failure Status: Chronic (6) Diabetes mellitus Status: Chronic - Assessment and Plan (Free Text) Plan: check CXR, pulmonary follow-up Dr. Gabriel, Dr. Lebron to resume care of patient in am
--- NOTE | 2017-10-12 13:25 | RAD ---
HISTORY: cough COMPARISON: 10/09/2017 TECHNIQUE: Chest PA and lateral FINDINGS: LUNGS: Left pacemaker is unchanged. There is evidence of prior median sternotomy. There is persistent right pleural effusion and mild subsegmental atelectasis at the right lung base, although mildly improved. . There is slight decrease in left pleural effusion with mild improvement aeration at the left lung base. PLEURA: Slight decrease in effusions. No pneumothorax. CARDIOVASCULAR: Heart is enlarged. There is decreased vascular congestion from prior study. OSSEOUS STRUCTURES: Stable. VISUALIZED UPPER ABDOMEN: Normal. OTHER FINDINGS: None. IMPRESSION: Decreased CHF and effusions with mild improvement in aeration.
[2017-10-12 23:46] VITALS: RESP 20
--- NOTE | 2017-10-12 23:46 | PN ---
DATE: 10/10/2017 SUBJECTIVE: The patient was seen and examined at the bedside on 10/10/2017. No nausea, vomiting or diarrhea. Still coughing, having shortness of breath, but little bit better. Feeling congested. No hematuria or hematochezia. No fever. No chills. PHYSICAL EXAMINATION: VITAL SIGNS: Temperature 98.1, heart rate 65, respiratory rate 18, blood pressure 100/50, pulse oximetry 99% on nasal cannula. HEENT: Head: Normocephalic and atraumatic. Eyes: PERRLA. Extraocular muscles intact. Conjunctivae clear. Nose patent. Mucous membrane moist. NECK: Supple. No carotid bruit. No JVD or thyromegaly. CHEST: Bilaterally symmetrical. HEART: S1, S2 positive. LUNGS: Clear to auscultation. ABDOMEN: Soft. Bowel sounds present. No organomegaly. EXTREMITIES: No edema. No cyanosis. NEUROLOGIC: Patient is awake, alert. Moving all 4 extremities. No focal deficit. LABORATORY DATA: Hemoglobin 10.9, hematocrit 32.9, white blood cells 5.3, platelets 301. Sodium 138, potassium 3.5, BUN 17, creatinine 0.9. AST 16, ALT 26, troponin 0.01. ProBNP 20,000. ASSESSMENT AND PLAN: Mrs. Mallorie Francis has multiple medical problems; has cardiac and pulmonary decompensation; has cardiomyopathy with left ventricular function; coronary artery disease; history of coronary artery stent; myocardial infarction; chronic obstructive lung disease; active smoker; sleep apnea syndrome; refused to use biphasic positive airway pressure, noncompliant; urged to be complaint and depression; atrial fibrillation, she is on Coumadin; diabetes mellitus; history of L4 compression fracture and history of rib fracture; history of multiple falls. Length of time discussion done with the patient. Appreciated Dr. Gabriel's input. We will continue present treatment. Infusion Therapy Nurse is on the case also. We will continue hydralazine, Benadryl, Symbicort, Cardizem, Claritin, Colace, Coreg, digoxin. Repeat labs. We will follow up. Tanisah Lebron MD [facility] # [id number]
[2017-10-13 06:05] VITALS: O2SAT 100
[2017-10-13 07:35] LABS: INR 3.08 (0.93-1.08); PROTHROMBIN TIME 36.3 SECONDS (9.4-12.5)
[2017-10-13] MEDS: Insulin Reg-LOW-Coverage SC SCH ×2 (08:00→11:30)
--- NOTE | 2017-10-13 08:02 | CP.PCM.PN ---
Subjective - Date & Time of Evaluation Date of Evaluation: 10/13/17 Time of Evaluation: 07:00 - Subjective Subjective: Stable on 2R. She feels much better.No CP or SOB. + ambulation yesterday V/S noted. V. paced. Sats = 100% PE: Lungs: few rhonchi Cor.: S1S2 Ext.: no edema Neuro.: alert Labs noted: INR = 3.08 CXR 10/12 noted: Improved CHF Objective - Vital Signs/Intake and Output Vital Signs (last 24 hours): Temp Pulse Resp BP Pulse Ox 97 F L 72 20 110/63 100 10/13/17 06:00 10/13/17 06:00 10/13/17 06:00 10/13/17 06:00 10/13/17 06:00 Intake and Output: 10/13/17 10/13/17 06:59 18:59 Intake Total 360 Balance 360 - Medications Medications: Current Medications Acetylcysteine (Acetylcysteine 20%) 3 ml INH BID [facility] Last Admin: 10/12/17 21:15 Dose: 3 ml Albuterol/Ipratropium (Duoneb 3 Mg/0.5 Mg (3 Ml) Ud) 3 ml IH [id number] PRN PRN Reason: Shortness of Breath Last Admin: 10/11/17 20:42 Dose: 3 ml Arformoterol Tartrate (Brovana) 15 mcg IH [id number] [facility] Last Admin: 10/12/17 21:15 Dose: 15 mcg Aspirin (Aspirin Chewable) 81 mg PO DAILY [facility] Last Admin: 10/12/17 09:31 Dose: 81 mg Atorvastatin Calcium (Lipitor) 20 mg PO DIN [facility] Last Admin: 10/12/17 17:40 Dose: 20 mg Carvedilol (Coreg) 25 mg PO BID [facility] Last Admin: 10/12/17 17:41 Dose: 25 mg Digoxin (Digoxin) 0.125 mg PO QOTHERDAY [facility] Last Admin: 10/11/17 09:31 Dose: 0.125 mg Diltiazem HCl (Cardizem Cd) 180 mg PO DAILY [facility] Last Admin: 10/12/17 09:32 Dose: 180 mg Diphenhydramine HCl (Benadryl) 25 mg PO BID [facility] Last Admin: 10/12/17 17:40 Dose: 25 mg Docusate Sodium (Colace) 100 mg PO BID [facility] Last Admin: 10/12/17 17:40 Dose: 100 mg Famotidine (Pepcid) 40 mg PO HS [facility] Last Admin: 10/12/17 21:46 Dose: 40 mg Ferrous Sulfate (Feosol) 324 mg PO DAILY [facility] Last Admin: 10/12/17 09:31 Dose: 324 mg Furosemide (Lasix) 40 mg IVP Q12 [facility] Last Admin: 10/12/17 21:43 Dose: 40 mg Glipizide (Glucotrol) 10 mg PO DAILY [facility] Last Admin: 10/12/17 09:33 Dose: 10 mg Hydralazine HCl (Apresoline) 25 mg PO TID [facility] Last Admin: 10/12/17 17:40 Dose: 25 mg Ceftriaxone Sodium (Rocephin 1 Gram Ivpb) 1 gm in 100 mls @ 100 mls/hr IVPB DAILY [facility] PRN Reason: Protocol Last Admin: 10/12/17 09:34 Dose: 100 mls/hr Insulin Detemir (Levemir) 12 unit SC DAILY [facility] Last Admin: 10/12/17 09:33 Dose: 12 unit Insulin Human Regular (Humulin R Low) 0 units SC ACHS [facility] PRN Reason: Protocol Last Admin: 10/12/17 21:45 Dose: Not Given Isosorbide Mononitrate (Imdur Er) 30 mg PO BID [facility] Last Admin: 10/12/17 17:40 Dose: 30 mg Lidocaine (Lidoderm) 1 ea TD DAILY [facility] Last Admin: 10/12/17 09:34 Dose: 1 ea Lisinopril (Zestril) 20 mg PO DAILY [facility] Last Admin: 10/12/17 09:33 Dose: 20 mg Loratadine (Claritin) 10 mg PO DAILY [facility] Last Admin: 10/12/17 09:30 Dose: 10 mg Methylprednisolone (Solu-Medrol) 20 mg IVP Q12 [facility] Last Admin: 10/12/17 21:43 Dose: 20 mg Montelukast Sodium (Singulair) 10 mg PO DAILY [facility] Last Admin: 10/12/17 10:18 Dose: 10 mg Nicotine (Nicoderm Cq) 1 patch TD DAILY [facility] Last Admin: 10/12/17 09:34 Dose: Not Given Nitroglycerin (Nitrostat Sl Tab) 0.4 mg SL Q5M PRN PRN Reason: chest pain Last Admin: 10/11/17 16:56 Dose: 0.4 mg Linagliptin [ Tradjenta] 1 Tab ( Home Med) 1 tab PO DAILY [facility] Last Admin: 10/12/17 09:34 Dose: Not Given Nortriptyline HCl (Pamelor) 10 mg PO TID [facility] Last Admin: 10/12/17 17:40 Dose: 10 mg Potassium Chloride (K-Dur 20 Meq Er Tab) 20 meq PO TID [facility] Last Admin: 10/12/17 17:40 Dose: 20 meq Prasugrel (Effient) 5 mg PO DAILY [facility] Last Admin: 10/12/17 09:33 Dose: 5 mg Sertraline HCl (Zoloft) 100 mg PO DAILY [facility] Last Admin: 10/12/17 09:33 Dose: 100 mg Warfarin Sodium (Coumadin) 4 mg PO 1800 [facility] PRN Reason: Protocol Last Admin: 10/11/17 17:16 Dose: 4 mg - Labs Labs: 10/12/17 06:30 PT 36.3 SECONDS (9.4-12.5) H 10/13/17 07:00 INR 3.08 (0.93-1.08) H 10/13/17 07:00 APTT 25.5 Seconds (25.1-36.5) 10/09/17 14:20 Assessment and Plan - Assessment and Plan (Free Text) Assessment: Dyspnea/Chest Pain CHF CAD/MIs/CABG/PCIs/Severe LVD COPD/Former Smoker, just quit several weeks ago ICD NSVT/PAF HBP HLD Diabetes H/O PE, extensive colon resection Psych: depression, suicidal ideation and gestures Plan: IV Lasix > 40 PO BID Resp. Tx. Hold warfarin and monitor INRs daily As per pulmonaryDr. Lebron Monitor: I/O, labs, INRs, sats., etc. OOB Home soon.
[2017-10-13] MEDS: Acetylcysteine 20% Inhal Soln (4ml) INH SCH (08:10)
[2017-10-13] MEDS: Arformoterol 15 mcg/2 ml Inh Sol IH SCH (08:10)
[2017-10-13] MEDS: Albuterol-Ipratrop 3 mg / 0.5 (3 ml) UD IH PRN (08:10)
--- NOTE | 2017-10-13 09:36 | PN ---
DATE: 10/12/2017 PULMONARY PROGRESS NOTE REFERRING PHYSICIAN: Dr. Lebron. SUBJECTIVE The patient is sitting in side of the bed. Night was unremarkable. Feels better. Does not want to use CPAP, was able to ambulate, still short of breath and mild cough. No nausea, no vomiting. No abdominal pain. No diarrhea. No leg pain or leg swelling. OBJECTIVE: GENERAL: Not in acute distress. VITAL SIGNS: Temperature is 98, heart rate 64, respiratory rate is 18, blood pressure 115/69, pulse ox 97% on nasal cannula. HEENT: Moist mucous membrane. No oral ulcer or thrush. NECK: Supple. No JVD. LUNGS: Have a few scattered rhonchi and a few basilar crackles. HEART: S1 and S2. ABDOMEN: Soft, nontender, no organomegaly. EXTREMITIES: No edema. NEUROLOGIC: Awake and alert and follows simple command. MEDICATIONS: She is on Mucomyst 3 mL inhaled twice a day, hydralazine 25 mg three times a day, aspirin 81 mg daily, Benadryl 25 mg twice a day, Brovana inhaled twice a day, Cardizem CD 180 mg daily, Claritin 10 mg daily, Colace 100 mg twice a day, Coreg 25 mg twice a day, Coumadin 4 mg daily, digoxin 0.125 mg three times a week, DuoNeb every 6 hours p.r.n., Effient 5 mg daily, ferrous sulfate 324 mg daily, glipizide 10 mg daily, insulin coverage, Imdur 30 mg twice a day, potassium 20 mEq daily, Lasix 40 mg twice a day, Levemir 12 units subcu daily, lidocaine patch at affected area, Lipitor 20 mg daily, Nicoderm patch daily, Nitrostat p.r.n. basis, Pamelor 10 mg three times a day, Pepcid 40 mg daily Rocephin 1 g daily, Singulair 10 mg daily, Solu-Medrol 40 mg every 12 hours, Zestril 20 mg daily, Zoloft 100 mg daily. DATA: Laboratory data reviewed and noted. Sodium 138, potassium 3.9, chloride 101, bicarbonate 24, BUN 31, creatinine 1, glucose 194, calcium 8.9, magnesium 1.7. INR 4.06. Had a chest x-ray done today, which shows decreased congestion and effusion and improvement of the elevation of the lung. IMPRESSION AND PLAN: Cardiac and pulmonary decompensation with heart failure and chronic obstructive pulmonary disease exacerbation, pleural effusion, basilar atelectasis and infiltrate, coronary artery disease, history of coronary stent, history of L4 compression fracture, sleep apnea precaution. Keep head at 45 degrees. Careful with sedation. 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 Decrease Solu-Medrol, add calcium p.o. daily. Gastric prophylaxis. Hold Coumadin today. INR in the morning. We will follow with you. Rosina Gabriel MD
--- NOTE | 2017-10-13 10:12 | PQF CHF ---
This form is a permanent part of the medical record Dr. Kemp, Please provide specificity about type and acuity of CHF present in this patient. Clarification of your documentation is requested to better reflect the severity of illness and intensity of treatment of your patient. Indicators present [x] Diagnosis of CHF and/or history of CHF [x] BNP > 200 [x] Imaging Finding of Pulmonary Edema /Pleural Effusions [] Fluid/Volume Overload [] Pitting edema [] Ejection Fraction < 40% (Indicative of Systolic Heart Failure) [] Ejection Fraction > 40% (Indicative of Diastolic Heart Failure) [x] Dyspnea / Orthopenea / Paroxysmal Nocturnal Dyspnea [] Other: Location in the medical record that reflects the above clinical findings: [] Treatment Provided: [] PHYSICIAN'S RESPONSE Based on your medical judgment of the clinical indicators outlined above, are you treating this patient for a known or suspected: x[x] Acute CHF [x] Systolic [] Diastolic [] Combined [] Chronic CHF [] Systolic [] Diastolic [] Combined [] Acute on Chronic CHF []Systolic [] Diastolic [] Combined [] CHF due hypertension [] Acute systolic []Chronic systolic [] Acute/ chronic systolic [] Other, please indicate: [] [] If Unable to Determine, please check the box, sign and date. Present On Admission (POA) Indicator: [x] Present at the time of admission [] Not present at the time of admission [] Clinically Undetermined In responding to this query, please exercise your independent professional judgment. The fact that a question is asked does not imply that any particular answer is desired or expected. Thank you for your clarification on this documentation. If you have any questions please call:[ ] * Thank you, [ ]Raegan Booth [facility] #[id number] stitch bonding machine drawer in [place]
[2017-10-13] MEDS: Insulin Detemir 100 units/ml Vial (Levemir) SC SCH (10:15)
[2017-10-13] MEDS: MethylPREDNISolone 40 mg Vial IVP SCH (10:16)
[2017-10-13] MEDS: Lidocaine 5% Patch TD SCH (10:17)
[2017-10-13] MEDS: Digoxin 125 mcg (0.125 mg) Tab PO SCH (10:17)
[2017-10-13] MEDS: diltiaZEM 180 mg/24 Hours CD Cap PO SCH (10:17)
[2017-10-13] MEDS: Potassium Chloride 20 mEq ER Tab PO SCH ×2 (10:18→13:46)
[2017-10-13] MEDS: cefTRIAXone 1 gm 1 GM/100 ML BAG IVPB SCH (10:18)
[2017-10-13] MEDS: LINAGLIPTIN PO SCH (10:20)
[2017-10-13 10:25] VITALS: PULSE 75
[2017-10-13 12:39] VITALS: BP 113/67; TEMP 97.5
[2017-10-13 13:51] VITALS: PULSE 74
--- NOTE | 2017-10-13 21:47 | PN ---
DATE: 10/13/2017 PULMONARY PROGRESS NOTE REFERRING PHYSICIAN: Tanisha Lebron MD. SUBJECTIVE: The patient is lying in the bed, head at 45 degrees. Night was unremarkable. Feels better. Decreased cough. Decreased shortness of breath. No nausea. No vomiting. No diarrhea. No leg pain or leg swelling. She is able to ambulate. OBJECTIVE: GENERAL: In no acute distress. VITAL SIGNS: Temperature is 98, heart rate is 74, respiratory rate is 20, blood pressure 113/67. HEENT: Moist mucous membrane. Crowded airway. NECK: Supple. No JVD. LUNGS: Have a few scattered rhonchi fair airflow. HEART: S1 and S2. ABDOMEN: Soft, nontender, no organomegaly. EXTREMITIES: There is no edema. NEUROLOGIC: Awake and alert and follows simple command. MEDICATIONS: Reviewed and noted no new changes in medication reported since yesterday. LABORATORY DATA: Shows INR today 3.08. Blood sugar this morning is 136. IMPRESSION AND PLAN: Chronic obstructive lung disease, cardiomyopathy, coronary artery disease, history of coronary stent, atrial fibrillation, pleural effusion, basilar atelectasis, history of L4 compression fracture, may have sleep apnea syndrome. Pulmonary point of view, doing well. Going to be discharged. On tapered dose of steroids. Inhaled bronchodilator. Continue anticoagulation. Fall precaution. Need outpatient pulmonary function test. Thank you and we will follow with you. Rosina Gabriel MD
[2017-10-14] MEDS ORDERED: Cefpodoxime (Vantin) 200 mg Tab PO SCH (10:00)
== END 2017-10-13 15:47 | disposition home or self-care (01) | DRG 190 ==
LOC: ED 13:22 → ERH 16:25 → 2RSO 20:31
PROVIDERS: ADMIT Internal Medicine; ATTEND Internal Medicine
PROC: 3E0F7GC Introduction of Other Therapeutic Substance into Respiratory Tract, Via Natural or Artificial Opening (ICD-10-PCS; principal; 2017-10-10)
DX: J44.1 Chronic obstructive pulmonary disease with (acute) exacerbation (principal); I50.21 Acute systolic (congestive) heart failure; I42.9 Cardiomyopathy, unspecified; I11.0 Hypertensive heart disease with heart failure; E11.9 Type 2 diabetes mellitus without complications; E87.6 Hypokalemia; D64.9 Anemia, unspecified; F17.200 Nicotine dependence, unspecified, uncomplicated; F32.9 Major depressive disorder, single episode, unspecified; F41.9 Anxiety disorder, unspecified; R51 Headache; I48.0 Paroxysmal atrial fibrillation; E78.5 Hyperlipidemia, unspecified; I25.119 Atherosclerotic heart disease of native coronary artery with unspecified angina pectoris; Z91.19 Patient's noncompliance with other medical treatment and regimen; G47.30 Sleep apnea, unspecified; R29.6 Repeated falls; I25.2 Old myocardial infarction; Z85.038 Personal history of other malignant neoplasm of large intestine; Z91.81 History of falling; Z86.73 Personal history of transient ischemic attack (TIA), and cerebral infarction without residual deficits; Z86.711 Personal history of pulmonary embolism; Z95.810 Presence of automatic (implantable) cardiac defibrillator; Z95.5 Presence of coronary angioplasty implant and graft; Z90.49 Acquired absence of other specified parts of digestive tract; Z95.1 Presence of aortocoronary bypass graft

== ENCOUNTER 2017-11-03 14:39 | Inpatient (IN) | payer MEDICARE, MEDICAID ==
--- NOTE | 2017-11-03 15:35 | ED PDOC ---
Arrival/HPI - General Time Seen by Provider: 11/03/17 15:09 Historian: Patient - History of Present Illness Narrative History of Present Illness (Text): 11/03/17 15:17 72yo female with PMhx of hypertension, CAD with cardiac stent, pacemaker who was bib the EMS for b/l LE edema, abdominal distention x 2days. The aide by the bedside notes previous history of LE edema, states it became worse over the past few days. 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 She denies cough, chest pain, diaphoresis, nausea, vomiting, abdominal pain, cough, fever, chills, any other complaint. Past Medical History - Provider Review Nursing Documentation Reviewed: Yes - Past History Past History: No Previous - Infectious Disease Hx of Infectious Diseases: None - Reproductive Menopause: Yes - Cardiac Hx Hypertension: No - Pulmonary Hx Chronic Obstructive Pulmonary Disease (COPD): Yes - Neurological Hx Neurological Disorder: Yes Hx Transient Ischemic Attacks (TIA): Yes - HEENT Hx HEENT Disorder: Yes (eyeglasses) - Renal Hx Renal Failure: Yes - Endocrine/Metabolic Hx Diabetes Mellitus Type 2: Yes - Hematological/Oncological Hx Blood Disorders: No - Integumentary Hx Dermatological Disorder: Yes Other/Comment: multiple skin discolorations arms, fading old bruises b/l knees, multiple surgical scars to abd, and lcw from pacemaker insertion - Musculoskeletal/Rheumatological Hx Falls: Yes - Gastrointestinal Hx Gastrointestinal Disorders: Yes (ileostomy reversal 2010) Hx Ileostomy: Yes Other/Comment: colon resection - Genitourinary/Gynecological Hx Genitourinary Disorders: Yes - Psychiatric Hx Anxiety: Yes Hx Depression: Yes Hx Substance Use: No - Surgical History Hx Cardiac Catheterization: Yes Hx Coronary Stent: Yes - Anesthesia Hx Anesthesia: Yes Hx Anesthesia Reactions: No Hx Malignant Hyperthermia: No - Suicidal Assessment Feels Threatened In Home Enviroment: No Family/Social History - Physician Review Nursing Documentation Reviewed: Yes Family/Social History: Unknown Family HX Smoking Status: Former Smoker Hx Alcohol Use: No Hx Substance Use: No Hx Substance Use Treatment: No Allergies/Home Meds Allergies/Adverse Reactions: Allergies clopidogrel bisulfate [From Plavix] Allergy (Verified 08/04/17 22:42) RASH Home Medications: Home Meds Medication Instructions Recorded Confirmed Albuterol Sulfate [Ventolin Hfa] 1 puff IH TID 10/09/17 11/03/17 Biotin 1 tab PO DAILY 10/09/17 11/03/17 Budesonide/Formoterol Fumarate 1 puff IH BID 10/09/17 11/03/17 [Symbicort 160-4.5 Mcg Inhaler] Carvedilol [Coreg] 25 mg PO BID 10/09/17 11/03/17 Digoxin 125 mcg PO QOTHERDAY 10/09/17 11/03/17 Diltiazem HCl [Cartia Xt] 1 tab PO DAILY 10/09/17 11/03/17 DiphenhydrAMINE [Benadryl] 1 cap PO BID 10/09/17 11/03/17 Docusate [Colace] 1 cap PO BID 10/09/17 11/03/17 Ferrous Sulfate [Feosol] 1 tab PO DAILY 10/09/17 11/03/17 GlipiZIDE [Glucotrol] 10 mg PO DAILY 10/09/17 11/03/17 Insulin Detemir [Levemir] 12 unit SC DAILY 10/09/17 11/03/17 Isosorbide Mononitrate ER [Imdur 1 tab PO DAILY 10/09/17 11/03/17 ER] Levocetirizine Dihydrochloride 1 tab PO DAILY 10/09/17 11/03/17 [Xyzal] Montelukast [Singulair] 1 tab PO DAILY 10/09/17 11/03/17 Potassium Chloride [K-Dur 20 mEq 20 meq PO DAILY 10/09/17 11/03/17 ER Tab] Ranitidine HCl [Zantac] 1 tab PO BID 10/09/17 11/03/17 Warfarin [Coumadin] 4 mg PO 1800 10/09/17 11/03/17 hydrALAZINE [Apresoline] 25 mg PO TID 10/09/17 11/03/17 Review of Systems - Physician Review All systems were reviewed & negative as marked: Yes - Review of Systems Constitutional: Normal Eyes: Normal ENT: Normal Respiratory: SOB Cardiovascular: Edema, Calf Pain, HERNANDEZ. absent: Orthopnea, Syncope Gastrointestinal: Normal Genitourinary Female: Normal Musculoskeletal: Normal Skin: Normal Neurological: Normal Endocrine: Normal Hemo/Lymphatic: Normal Psychiatric: Normal Physical Exam Vital Signs Reviewed: Yes Vital Signs Temp Pulse Resp BP Pulse Ox 05/21/18 19:40 110/62 11/03/17 19:34 97.6 F 81 24 110/62 97 11/03/17 15:08 97.7 F 77 20 100/58 L 96 Temperature: Afebrile Blood Pressure: Normal Pulse: Regular Respiratory Rate: Normal Appearance: Positive for: Well-Appearing, Non-Toxic, Comfortable Pain Distress: None Mental Status: Positive for: Alert and Oriented X 3 - Systems Exam Head: Present: Atraumatic, Normocephalic Pupils: Present: PERRL Extroacular Muscles: Present: EOMI Conjunctiva: Present: Normal Mouth: Present: Moist Mucous Membranes Neck: Present: Normal Range of Motion Respiratory/Chest: Present: Clear to Auscultation, Good Air Exchange. No: Respiratory Distress, Accessory Muscle Use, Wheezes, Decreased Breath Sounds, Rales, Retracting, Rhonchi, Tachypneic, Tender to Palpation Cardiovascular: Present: Regular Rate and Rhythm, Normal S1, S2. No: Murmurs Abdomen: Present: Distention, Other (Soft). No: Tenderness, Peritoneal Signs, Rebound, Guarding, McBurney's Point Tender, Rovsing's Sign Present Back: Present: Normal Inspection Upper Extremity: Present: Normal Inspection. No: Cyanosis, Edema Lower Extremity: Present: Edema (3+ Pitting edema), CALF TENDERNESS (Right leg) , NORMAL PULSES, Normal ROM, Tenderness. No: Syed's Sign Neurological: Present: GCS=15, CN II-XII Intact, Speech Normal Skin: Present: Warm, Dry, Normal Color. No: Rashes Psychiatric: Present: Alert, Oriented x 3, Normal Insight, Normal Concentration Medical Decision Making ED Course and Treatment: 11/03/17 20:24 PT in ED for stated history. Not in any respiratory distress. Elevated BNP was noted. Lasix was ordered. EKG NSR; LVH; 84bpm Per US tech Doppler was negative for DVT b/l. Pt will be Placed on OBS for CHF Exacerbation CXR Moderate Cardiomegaly. Pulmonary congestion. Case was DW Dr. Lebron and pt was admitted to her service. Result and plan was DW the pt and she agreed. - Lab Interpretations Lab Results: 11/03/17 16:15 11/03/17 16:15 Lab Results 11/03/17 16:15: Digoxin < 0.4 L 11/03/17 16:15: Sodium 141, Chloride 104, Potassium 3.9, Carbon Dioxide 24, Anion Gap 17, BUN 44 H, Creatinine 0.9, Est GFR ( Amer) > 60, Est GFR ( Non-Af Amer) > 60, Random Glucose 70, Calcium 9.3, Magnesium 2.0, Total Bilirubin 0.7, AST 33, ALT 43, Alkaline Phosphatase 84, Lactate Dehydrogenase 308 L, Total Creatine Kinase < 20 L, Troponin I 0.02 D, NT-Pro-B Natriuret Pep 97015 H, Total Protein 6.0, Albumin 3.5, Globulin 2.5, Albumin/Globulin Ratio 1.4 11/03/17 16:15: pO2 49, VBG pH 7.37, VBG pCO2 44.0, VBG HCO3 25.4, VBG Total CO2 26.8, VBG O2 Sat (Calc) 84.2 H, VBG Base Excess -0.2 L, VBG Potassium 3.6, Sodium 136.0, Chloride 105.0, Glucose 70, Lactate 0.8, FiO2 21.0, Venous Blood Potassium 3.6 11/03/17 16:15: PT 20.9 H, INR 1.81 H, APTT 33.8 11/03/17 16:15: WBC 8.1 D, RBC 4.10, Hgb 12.3, Hct 38.0, MCV 92.7, MCH 30.0, MCHC 32.4, RDW 19.4 H, Plt Count 205, MPV 9.6, Gran % 77.4 H, Lymph % (Auto) 12.9 L, Spencer % (Auto) 7.9 H, Eos % (Auto) 1.6, Baso % (Auto) 0.2, Gran # 6.28, Lymph # (Auto) 1.1 L, Spencer # (Auto) 0.6, Eos # (Auto) 0.1, Baso # (Auto) 0.02 - RAD Interpretation Radiology Orders: 11/03/17 15:16 CHEST PORTABLE [RAD] Stat 11/03/17 16:06 DUPLEX LOWER EXTRM VEIN BILAT [US] Stat - Medication Orders Current Medication Orders: Ceftriaxone Sodium (Rocephin 1 Gram Ivpb) 1 gm in 100 mls @ 200 mls/hr IVPB STAT STA PRN Reason: Protocol Stop: 11/03/17 21:08 Discontinued Medications Furosemide (Lasix) 60 mg IVP STAT STA Stop: 11/03/17 18:28 Last Admin: 11/03/17 19:40 Dose: 60 mg MAR Blood Pressure Document 11/03/17 19:40 CNR (Rec: 11/03/17 19:43 CNR [id number]) Blood Pressure Blood Pressure (100/60-150/90) 110/62 IVP Administration Document 11/03/17 19:40 CNR (Rec: 11/03/17 19:43 CNR [id number]) Charges for Administration # of IVP Administrations 1 Tramadol HCl (Ultram) 50 mg PO STAT STA Stop: 11/03/17 17:01 Last Admin: 11/03/17 17:24 Dose: 50 mg MAR Pain Assessment Document 11/03/17 17:24 GMD (Rec: 11/03/17 17:24 GMD [id number]) Pain Reassessment Is this a pain reassessment? No Presence of Pain Presence of Pain Yes Location Left, Right or Bilateral Bilateral Pain Location Body Site Leg Disposition/Present on Arrival - Present on Arrival Any Indicators Present on Arrival: No History of DVT/PE: No History of Uncontrolled Diabetes: No Urinary Catheter: No History of Decub. Ulcer: No History Surgical Site Infection Following: None - Disposition Have Diagnosis and Disposition been Completed?: Yes Diagnosis: CHF exacerbation, UTI (urinary tract infection) Disposition: HOSPITALIZED Disposition Time: 18:30 Patient Plan: Admission Patient Problems: Current Active Problems Problem Status Onset UTI (urinary tract infection) Acute CHF exacerbation Chronic Condition: FAIR
--- NOTE | 2017-11-03 15:44 | RAD ---
HISTORY: SOB COMPARISON: 10/12/2017 FINDINGS: LUNGS: No active pulmonary disease. PLEURA: No significant pleural effusion identified, no pneumothorax apparent. CARDIOVASCULAR: Moderate cardiomegaly. Moderate vascular congestion. OSSEOUS STRUCTURES: No significant abnormalities. VISUALIZED UPPER ABDOMEN: Normal. OTHER FINDINGS: Pacemaker IMPRESSION: Moderate cardiomegaly. Moderate vascular congestion.
[2017-11-03 16:27] LABS: VENOUS BLOOD GAS BASE EXCESS -0.2 mmol/L (0.0-2.0); VENOUS BLOOD GAS PO2 49 mm/Hg (30-55); VENOUS BLOOD PH 7.37 (7.32-7.43)
[2017-11-03 16:31] LABS: BASO # 0.02 K/mm3 (0.0-2.0); BASO % 0.2 % (0.0-3.0); EOS # 0.1 (0.0-0.7); EOS % 1.6 % (1.5-5.0); GRAN # 6.28 (1.4-6.5); GRAN % 77.4 % (50.0-68.0); HEMOGLOBIN 12.3 g/dL (12.0-16.0); LYMPH # 1.1 (1.2-3.4); LYMPH % 12.9 % (22.0-35.0); MEAN CELL VOLUME 92.7 fl (80.0-105.0); MEAN CORPUSCULAR HGB CONC 32.4 g/dl (31.0-37.0); MEAN PLATELET VOLUME 9.6 fl (7.0-11.0); MONO # 0.6 (0.1-0.6); MONO % 7.9 % (1.0-6.0); RBC 4.1 10^6/uL (3.5-6.1); RED CELL DISTRIBUTION WIDTH 19.4 % (11.5-14.5); WHITE BLOOD COUNT 8.1 10^3/ul (4.5-11.0)
[2017-11-03 16:40] LABS: INR 1.81 (0.93-1.08); PARTIAL THROMBOPLASTIN TIME 33.8 Seconds (25.1-36.5); PROTHROMBIN TIME 20.9 SECONDS (9.4-12.5)
[2017-11-03 18:05] LABS: ALB/GLOB RATIO 1.4 (1.1-1.8); ALBUMIN 3.5 g/dL (3.0-4.8); ALT/SGPT 43 U/L (7-56); AST/SGOT 33 U/L (14-36); BLOOD UREA NITROGEN 44 mg/dL (7-21); CALCIUM 9.3 mg/dL (8.4-10.5); GFR AFRICAN-AMERICAN > 60; GFR NON-AFRICAN AMERICAN > 60
[2017-11-03 18:19] LABS: B-TYPE NATRIURETIC PEPTIDE 16600 pg/mL (0-450); TROPONIN I 0.02 ng/mL
[2017-11-03 20:22] LABS: URINE BILIRUBIN NEGATIVE (NEGATIVE); URINE BLOOD NEGATIVE (NEGATIVE); URINE GLUCOSE (UA) NEGATIVE (NEGATIVE); URINE LEUKOCYTE ESTERASE MODERATE Leu/uL (NEGATIVE); URINE PROTEIN NEGATIVE mg/dL (<30 mg/dL); URINE UROBILINOGEN 0.2 E.U./dL (<1 E.U./dL)
[2017-11-03 20:23] LABS: URINE APPEARANCE SLIGHT-CLOUDY (CLEAR); URINE COLOR YELLOW (YELLOW)
[2017-11-03] MEDS ORDERED: cefTRIAXone 1 gm 1 GM/100 ML BAG IVPB STA (20:39)
[2017-11-03 20:48] LABS: URINE BACTERIA MANY (NEG); URINE EPITHELIAL CELLS 0 - 2 /hpf (0-5); URINE RBC NEGATIVE /hpf (0-2); URINE WBC 0 - 2 /hpf (0-6)
[2017-11-03 23:56] VITALS: BMI 23.8
[2017-11-04] MEDS: Albuterol-Ipratrop 3 mg / 0.5 (3 ml) UD IH SCH ×4 (02:46→20:30)
[2017-11-04 06:26] LABS: HEMOGLOBIN 12.2 g/dL (12.0-16.0); MEAN CELL VOLUME 93.2 fl (80.0-105.0); MEAN CORPUSCULAR HEMOGLOBIN 29.6 pg (25.0-35.0); MEAN CORPUSCULAR HGB CONC 31.8 g/dl (31.0-37.0); MEAN PLATELET VOLUME 10.1 fl (7.0-11.0); RBC 4.12 10^6/uL (3.5-6.1); RED CELL DISTRIBUTION WIDTH 19.6 % (11.5-14.5); WHITE BLOOD COUNT 6.9 10^3/ul (4.5-11.0)
[2017-11-04 06:40] LABS: BLOOD UREA NITROGEN 42 mg/dL (7-21); CALCIUM 9.2 mg/dL (8.4-10.5); GFR AFRICAN-AMERICAN > 60; GFR NON-AFRICAN AMERICAN > 60; HDL CHOLESTEROL 26 mg/dL (29-60); IRON 52 ug/dL (45-180)
[2017-11-04 06:50] LABS: % IRON SATURATION 13 % (20-55); TOTAL IRON BINDING CAPACITY 415 ug/dL (265-497)
[2017-11-04 06:51] LABS: LDL CHOLESTEROL 68 mg/dL (0-129)
[2017-11-04] MEDS: Insulin Reg-LOW-Coverage SC SCH ×4 (07:51→22:19)
[2017-11-04] MEDS ORDERED: Albuterol 0.083% Inhal Sol (2.5 mg/3 mL) UD IH SCH (08:00)
[2017-11-04] MEDS: Acetylcysteine 20% Inhal Soln (4ml) INH SCH ×2 (08:06→20:30)
--- NOTE | 2017-11-04 08:11 | CARD ---
APPROVED REPORT EKG Measurement Heart [id number] <Conclusion> Electronic ventricular pacemaker
[2017-11-04] MEDS: Potassium Chloride 20 mEq ER Tab PO SCH (09:48)
[2017-11-04] MEDS: Insulin Detemir 100 units/ml Vial (Levemir) SC SCH (09:49)
[2017-11-04] MEDS: diltiaZEM 180 mg/24 Hours CD Cap PO SCH (09:49)
[2017-11-04] MEDS: Non Formulary Medication (Budesonide/Formoterol Fumarate [Symbicort 160-4.5 Mcg Inhaler] 1 IH SCH ×2 (09:53→18:00)
[2017-11-04] MEDS ORDERED: Non Formulary Medication (Ranitidine Hcl [Zantac] 1 TAB) PO SCH (10:00)
[2017-11-04] MEDS ORDERED: LEVOCETIRIZINE DIHYDROCHLORIDE PO SCH (10:00)
[2017-11-04] MEDS ORDERED: BIOTIN PO SCH (10:00)
--- NOTE | 2017-11-04 11:11 | US ---
HISTORY: Leg pain and swelling. Evaluate for DVT PHYSICIAN(S): Fabricio Escudero MD. TECHNIQUE: Duplex sonography and color-flow Doppler with graded compression were used to evaluate the deep venous systems of both lower extremities. The exam is limited by edema. FINDINGS: The visualized deep venous systems of both lower extremities are sonographically normal and compressible. Normal wave forms and augmentation are seen. There is no sonographic evidence for deep venous thrombosis in the visualized segments of both lower extremities. IMPRESSION: No sonographic evidence for deep venous thrombosis in the visualized segments of both lower extremities.
--- NOTE | 2017-11-04 11:23 | HP ---
DATE OF EXAM: 11/03/2017 Patient was seen and examined on the bedside. CHIEF COMPLAINT: Swelling of the legs and shortness of breath. HISTORY OF PRESENT ILLNESS: Ms. Mallorie Francis is a 72-year-old lady with past medical history of hypertension, coronary artery disease, cardiac stent, pacemaker, brought by EMS for bilateral swelling of the legs, abdominal distension 2 days. Patient has a history of swelling of the legs, now it became worse over the past few days. She went to see Dr. Kemp, her booking officer today and Dr. Kemp referred the patient to the hospital. She denies chest pain, diaphoresis, nausea, vomiting, abdominal pain, fever. No hematuria. No hematochezia. PAST MEDICAL HISTORY: As above. COPD, TIA, renal failure, diabetes mellitus, fall, ileostomy, colon resection, anxiety, depression, coronary stenting. FAMILY HISTORY: Father and mother, noncontributory. HABITS: Former smoker. No alcohol. No substance abuse. ALLERGIES: PATIENT IS ALLERGIC WITH PLAVIX PER PATIENT. HOME MEDICATIONS: Reviewed by me. Ventolin, Symbicort, Coreg, digoxin, Benadryl, Colace, Glucotrol, Levemir, Singulair, Zantac, Coumadin. REVIEW OF SYSTEMS: Patient is seen and examined on the bedside in the telemetry. Still having swelling of the legs, having shortness of breath. No orthopnea or syncope. No diarrhea, hematuria, or hematochezia. No fever. No chills. Review of systems, 12-point is within normal limits except above as explained. PHYSICAL EXAMINATION: VITAL SIGNS: Temperature 97.6, pulse 81, respiratory rate 24, blood pressure 110/64, pulse oximetry 97. HEENT: Head: Normocephalic, atraumatic. Eyes: PERRLA. Extraocular muscles intact. Conjunctivae clear. Nose: Patent. Mucous membranes moist. NECK: Supple. No carotid bruit, JVD, or thyromegaly. CHEST: Bilaterally symmetrical. HEART: S1 and S2 positive. LUNGS: Clear to auscultation. ABDOMEN: Soft. Bowel sounds present. No organomegaly. EXTREMITIES: Positive edema. NEUROLOGIC: Patient is awake and alert. Moving all four extremities. No focal deficit. LABORATORY DATA: White blood cells 8.1, hemoglobin 12.3, hematocrit 38, platelets 205. Sodium 141, potassium 3.9, BUN noted , creatinine 0.9, glucose 70. ASSESSMENT AND PLAN: Ms. Mallorie Francis is a 72-year-old lady with multiple medical problems, came with urinary tract infection, congestive heart failure exacerbation, history of coronary artery disease, hypertension, cardiac stenting, pacemaker, chronic obstructive pulmonary disease, noncompliant, transient ischemic attack, diabetes mellitus type 2, multiple skin discoloration, multiple surgical scars to the abdomen from pacemaker insertion, history of ileostomy reversal, colon resection, anxiety, depression, coronary stents. We admitted the patient, started Lasix. Started home medications. We will do PT, INR and Cardiology and Pulmonary consult called. Repeat labs. We will follow up. Tanisha Lebron MD CONTRERAS
[2017-11-04 13:14] LABS: FOLATE > 20.0 ng/mL
--- NOTE | 2017-11-04 15:08 | CON ---
DATE: 11/04/2017 INDICATIONS: Shortness of breath, edema, increased abdominal girth. HISTORY OF PRESENT ILLNESS: This is a 72-year-old woman well-known to me admitted after she came to the office yesterday complaining of increasing edema and abdominal girth with recurrence of shortness of breath and congestion. She has had a recent [facility] admission and went to [facility]. She left [facility] and was staying with a home health aide, having been homeless in the past and lost the opportunity to get new apartment because she was rehospitalized and in [facility], getting rehab. Currently, she does not have a place to live. There is no chest pain, but there is dyspnea on exertion, increased edema, increased abdominal girth. She also notes orthopnea, but no syncope, presyncope, lightheadedness, dizziness, or vertigo. No fever, chills, cough, sputum production, or hemoptysis. No abdominal pain, nausea, vomiting, diarrhea, constipation, or melena. PAST MEDICAL HISTORY: Complex. She has congestive heart failure, coronary artery disease status post coronary artery bypass surgery with coronary interventions, myocardial infarctions, and severe LV dysfunction. Her most recent coronary intervention was a very complex procedure on her right coronary artery. She has paroxysmal atrial fibrillation, a defibrillator in place, hypertension, hyperlipidemia, diabetes, COPD. She is a former smoker. She has history of pulmonary embolus and extensive colon resection, depression, and a history of suicidal ideation and suicidal gestures. MEDICATIONS AT THE TIME OF ADMISSION: Include hydralazine, aspirin, Benadryl, biotin, diltiazem, Colace, Coreg, warfarin, digoxin, Effient, iron, Glucotrol, Imdur, potassium chloride, Lasix, insulin, Lipitor, Pepcid, Singulair, budesonide, albuterol, Xyzal, Zantac, lisinopril, Zoloft. ALLERGIES: THERE IS AN ALLERGY TO PLAVIX NOTED. SOCIAL HISTORY: She no longer smokes. She does not drink alcohol. She is homeless. FAMILY HISTORY: Noncontributory. REVIEW OF SYSTEMS: A 10-point review of systems is otherwise unremarkable except as noted above. PHYSICAL EXAMINATION: GENERAL: She is a well-developed elderly woman, in no acute distress. VITAL SIGNS: She is ventricular paced at 74 to 89 beats per minute. She is afebrile. Blood pressure 111/79, respirations 20, O2 sat 96%. HEENT: Reveal neck vein distention. Mucous membranes moist. Conjunctivae pink. NECK: Soft carotid bruits. No thyromegaly. Supple. LUNGS: Lung coelho, scattered rhonchi. HEART: Reveals a regular rhythm with normal first and second heart sounds. PMI is laterally displaced. ABDOMEN: Protuberant. There may be some ascitic fluid. No mass, organomegaly, tenderness, rebound, or guarding. No CVA tenderness. No palpable abdominal aortic aneurysm. EXTREMITIES: Reveal no cyanosis, clubbing, or edema. NEUROLOGIC: She is awake, alert, and oriented. PSYCHIATRIC: Normal as to mood and affect. SKIN: Warm and dry. No rash or cellulitis. LABORATORY AND IMAGING: Chest x-ray revealed moderate vascular congestion. EKG demonstrated a ventricular paced rhythm. White count is normal, hemoglobin 12.2, hematocrit 38.4, platelet count normal. PT 20.9, INR 1.81, PTT 33.8. Venous blood gas noted. Electrolytes, BUN and creatinine noted. BUN was elevated at 44, repeat 42. Blood sugar in the 70s. Calcium normal. Magnesium normal. LFTs unremarkable except the LDH is elevated at 308. CK less than 20, troponin 0.02. BNP 16,600. Cholesterol 116, LDL 68. TSH 1.46. Urinalysis is noted. Digoxin level less than 0.04. IMPRESSION: Mallorie William is a 72-year-old woman who is currently homeless living with a home health aide after a stay at [facility] for rehab, who developed shortness of breath, congestion, increased pedal edema, increased abdominal girth, was admitted with an episode of congestive heart failure. There is no evidence of acute myocardial infarction at this time. I agree with current plans. She is on telemetry. She is getting IV Lasix. She put out 600 mL last night and she feels a bit better this morning. I will continue her usual cardiac medications which include hydralazine, aspirin, diltiazem, Coreg, warfarin, digoxin, Effient, Imdur, Lasix, Lipitor, and lisinopril. She can be out of bed to the chair. We will monitor I's and O's. We will review her old records. Lower extremity duplex study to rule out DVT is pending. I will check stool for occult blood. deputy sheriff court services should be consulted. I suggested penitentiary placement, but she is reluctant about this. I have asked her to think it over. We will monitor her labs and INRs. She has a pulmonary consultation with Dr. Gabriel as well. I will follow along with you and make additional recommendations based on her clinical course. Nas Kemp MD MTDD
--- NOTE | 2017-11-05 02:04 | PN ---
DATE: 11/04/2017 SUBJECTIVE: Patient is seen and examined at the bedside, looking comfortable, still having swelling of the legs. No nausea, vomiting, or diarrhea. Appetite is appropriate. Sleep is okay. No headache. No dizziness. REVIEW OF SYSTEMS: A 10-point review of systems is otherwise unremarkable except as noted above. PHYSICAL EXAMINATION: VITAL SIGNS: Blood pressure 110/79, respiratory rate 20, pulse 74. HEENT: Head: Normocephalic and atraumatic. Eyes: PERRLA. Extraocular muscles are intact. Conjunctivae are clear. Nose: Patent. Mucous membranes are moist. NECK: Supple. No carotid bruit, JVD, or thyromegaly. CHEST: Bilaterally symmetrical. HEART: S1, S2 positive. LUNGS: Clear to auscultation. ABDOMEN: Soft. Bowel sounds are present. No organomegaly. EXTREMITIES: No edema. No cyanosis. NEUROLOGICAL: Patient is awake and alert. Moving all 4 extremities. No focal deficit. LABORATORY DATA: Hemoglobin 12.2, hematocrit 38.4, platelets 242, and white blood cell 6.9. Glucose 98, sodium 143, potassium 3.7, BUN of 42, creatinine 0.9. Hemoglobin A1c 7.1, saturations 13%. ASSESSMENT AND PLAN: Ms. Mallorie Turner is a 72-year-old lady with uncontrolled diabetes mellitus, iron deficiency, urinary tract infection, came with swelling of the legs, exacerbation of congestive heart failure, coronary artery disease status post coronary artery bypass surgery with coronary intervention, myocardial infarction, severe left ventricular dysfunction, paroxysmal atrial fibrillation, a defibrillator is placed, hypertension, hypercholesterolemia, diabetes mellitus, chronic obstructive pulmonary disease, history of smoking, history of pulmonary embolism, extensive colon resection, depression, history of suicidal ideation and plan, and suicidal gesture. the patient is given IV Lasix. Cardiology is on the case. Gastrointestinal and deep venous thrombosis prophylaxis. Repeat labs. We will follow up. Tanisha Lebron MD MTDD
--- NOTE | 2017-11-05 02:49 | CON ---
DATE: 11/04/2017 PULMONARY PROGRESS NOTE REFERRING PHYSICIAN: Dr. Lebron. THE REASON FOR CONSULT: Chronic obstructive lung disease, short of breath. HISTORY OF PRESENT ILLNESS: This is a 72-year-old female, well known to me from previous admission with multiple medical issues including chronic obstructive lung disease, may have obstructive sleep apnea syndrome, coronary artery disease, cardiomyopathy, atrial fibrillation, history of TIA, diabetes, history of colon resection in the past, anxiety disorder, has issue with accommodation for home, presently sharing with some family department. Brought into ER with shortness of breath, cough, increased leg swelling. She did stop smoking a few weeks ago. No hemoptysis. No hematemesis. No hematuria. Does have leg swelling. PAST MEDICAL HISTORY: As per history present illness. ALLERGIES: TO PLAVIX. SOCIAL HISTORY: Recently stopped smoking. Denied any alcohol use. FAMILY HISTORY: No significant cardiopulmonary disease reported. MEDICATIONS: She is on Mucomyst 20% inhaled twice a day, hydralazine 25 mg three times a day, aspirin 81 mg daily, has a Benadryl 25 mg twice a day by, Biotin 1 tab daily, also getting Symbicort 165/4.5 one to two puffs twice a day, Cardizem 180 mg daily, Colace 100 mg twice a day, Coreg 25 mg twice a day, Coumadin 4 mg given, digoxin 0.125 mg every 48 hours, DuoNeb every 6 hours, Effient 5 mg daily, ferrous sulfate 324 mg daily, glipizide 10 mg daily, Imdur ER 30 mg daily, potassium 20 mEq daily, Lasix 40 mg twice a day, Levemir 12 units subcu daily, Lipitor 20 mg daily, Pepcid 40 mg daily, Rocephin 1 g IV daily, Singulair 10 mg daily, Tylenol p.r.n., Ultram 50 mg daily, lisinopril 20 mg daily, Zoloft 100 mg daily. REVIEW OF SYSTEMS: No headache. No rhinitis. Has some cough, shortness of breath. No chest pain. No nausea. No vomiting. No diarrhea. Does have a leg swelling. PHYSICAL EXAMINATION: VITAL SIGNS: Temperature is 98, heart rate is 88, respiratory rate is 18, blood pressure 102/58, pulse ox 96% on 2 L nasal cannula. HEENT: Moist mucous membrane. Crowded airway. Mallampati score is 4. NECK: Supple. No JVD. LUNGS: Have a few crackles at the bases. HEART: S1 and S2. ABDOMEN: Soft, nontender. No organomegaly. EXTREMITIES: Does have edema. NEUROLOGICAL: Awake and alert, follows simple command. LABORATORY DATA: Shows hemoglobin 12.2, hematocrit 38.4, WBC 6.9, platelet is 242. Blood sugar is 207. Troponin 0.08. Sodium 142, potassium 3.7, chloride 106, bicarbonate 21, BUN 42, creatinine 0.9, glucose 70, hemoglobin A1c 7.1, iron is 52, AST 33, cholesterol 116. TSH 1.46. Microbiology: Blood culture has been negative. Chest x-ray showed bilateral pleural effusions, right greater than the left, also shows moderate cardiomegaly. IMPRESSION AND PLAN: Chronic obstructive lung disease, cardiomyopathy with decreased left ventricular function, coronary artery disease, history of coronary stent, atrial fibrillation, has a cardiac pacemaker, history of transient ischemic attack, diabetes, history of vertebral compression fracture. Pulmonary point of view, doing okay. Continue bronchodilator. Keep head at 45 degrees. Sleep apnea precaution. 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 Spoke to family friend at bedside. Follow up labs in the morning. INR in the morning. Thank you and we will follow with you. Rosina Gabriel MD
[2017-11-05 06:53] LABS: URINE BILIRUBIN NEGATIVE (NEGATIVE); URINE BLOOD NEGATIVE (NEGATIVE); URINE GLUCOSE (UA) NEGATIVE (NEGATIVE); URINE LEUKOCYTE ESTERASE SMALL Leu/uL (NEGATIVE); URINE PROTEIN TRACE mg/dL (<30 mg/dL); URINE UROBILINOGEN 0.2 E.U./dL (<1 E.U./dL)
[2017-11-05 06:56] LABS: INR 1.32 (0.93-1.08); PROTHROMBIN TIME 15.3 SECONDS (9.4-12.5)
[2017-11-05 06:57] LABS: URINE APPEARANCE SL CLOUDY (CLEAR); URINE COLOR YELLOW (YELLOW)
[2017-11-05 07:26] LABS: URINE AMORPHOUS SEDIMENT FEW; URINE BACTERIA LARGE (NEG); URINE RBC 0 - 2 /hpf (0-2)
[2017-11-05 07:28] LABS: BLOOD UREA NITROGEN 41 mg/dL (7-21); CALCIUM 8.8 mg/dL (8.4-10.5); GFR AFRICAN-AMERICAN > 60; GFR NON-AFRICAN AMERICAN > 60
[2017-11-05] MEDS: Insulin Reg-LOW-Coverage SC SCH ×4 (07:30→21:33)
[2017-11-05] MEDS: Albuterol-Ipratrop 3 mg / 0.5 (3 ml) UD IH SCH ×4 (08:29→20:50)
[2017-11-05] MEDS: Acetylcysteine 20% Inhal Soln (4ml) INH SCH ×2 (08:39→20:50)
[2017-11-05] MEDS: diltiaZEM 180 mg/24 Hours CD Cap PO SCH (09:50)
[2017-11-05] MEDS: Potassium Chloride 20 mEq ER Tab PO SCH (09:51)
[2017-11-05] MEDS: Insulin Detemir 100 units/ml Vial (Levemir) SC SCH ×2 (10:01→12:05)
--- NOTE | 2017-11-05 12:32 | PN ---
DATE: 11/05/2017 SUBJECTIVE: The patient is seen sitting in bed on telemetry. She is feeling somewhat better. She continues to have leg edema and her legs feel somewhat painful to touch. Her dyspnea has improved as has her cough. CURRENT MEDICATIONS: Include Mucomyst inhalation therapy, hydralazine 25 mg t.i.d., aspirin, Benadryl, diltiazem 180 mg daily, carvedilol 25 mg b.i.d., Coumadin 4 mg daily, digoxin 0.125 mg every other day, DuoNeb inhaler, Effient 5 mg daily, Glucotrol 10 mg daily, insulin coverage, Imdur 30 mg daily, potassium 20 mEq daily, Lasix 40 mg b.i.d. as well as Levemir insulin, Lipitor, Pepcid, Rocephin, Singulair, Zestril 20 mg daily, and Zoloft 100 mg daily. PHYSICAL EXAMINATION: GENERAL: She is a middle-aged woman who appears comfortable at rest. VITAL SIGNS: Blood pressure is 100/62 with a pulse of 90 with ventricular pacing, respirations are 14. She is afebrile. HEENT: No JVD. CHEST: Bilateral scattered rhonchi heard. ABDOMEN: Soft, nontender. Normoactive bowel sounds. EXTREMITIES: A 2+ edema into the thighs. DIAGNOSTIC DATA: INR 1.32. Potassium 3.7, BUN and creatinine 41 and 0.9. IMPRESSION: 1. Decompensated congestive heart failure, acute on chronic, predominantly systolic. 2. Coronary artery disease, status post prior bypass surgery, multivessel percutaneous coronary intervention. 3. Severe baseline left ventricular dysfunction. 4. Paroxysmal atrial fibrillation. 5. Status post implantable cardioverter-defibrillator implant. 6. History of chronic obstructive pulmonary disease and tobacco abuse. 7. Status post colon cancer resection and prior pulmonary embolism. 8. History of depression. RECOMMENDATIONS: Her current medications will be continued for now. Spironolactone will be added to regimen if tolerated. Her Lasix should be continued and not held unless her systolic blood pressure is below 90. Compression stocking use will be advised. Monitoring of her renal function and electrolytes will be planned. We will follow along as needed. Dwight Patiño MD [facility] # [phone]
[2017-11-05] MEDS ORDERED: Digoxin 125 mcg (0.125 mg) Tab PO SCH (14:00)
[2017-11-05 14:34] VITALS: PULSE 71
--- NOTE | 2017-11-05 17:36 | PN ---
DATE: 11/05/2017 PULMONARY PROGRESS NOTE REFERRING PHYSICIAN: Tanisha Lebron MD. SUBJECTIVE: She is sitting up in a bed, feels better. Decreased cough, decreased shortness of breath. No chest pain, no nausea, no vomiting, no diarrhea. Still has leg swelling, has a MANUEL stocking. PHYSICAL EXAMINATION: GENERAL: In no acute distress. VITAL SIGNS: Temperature is 98, heart rate is 71, respiratory rate is 20, blood pressure 95/54. HEENT: Moist mucous membrane. Crowded airway. NECK: Supple. No JVD. LUNGS: Have a fair airflow with rhonchi. HEART: S1 and S2. ABDOMEN: Soft, nontender, no organomegaly. EXTREMITIES: Does have edema, has a MANUEL stocking. NEUROLOGIC: Awake, alert, follows simple commands. MEDICATIONS: She is on Mucomyst 20% twice a day, Aldactone 25 mg twice a day, hydralazine 25 mg three times a day, aspirin 81 mg daily, Benadryl 25 mg twice a day, Cardizem CD 180 mg daily, Colace 100 mg twice a day, Coreg 25 mg twice a day, Coumadin 4 mg daily, digoxin 0.125 mg daily every 48 hours, DuoNeb every 6 hours [id number], Effient 5 mg daily, ferrous sulfate 324 mg daily, glipizide 10 mg daily, insulin coverage, Imdur 30 mg daily, potassium 20 mEq daily, Lasix 40 mg twice a day, Levemir 12 units subcu daily, Lipitor 20 mg daily, Pepcid 40 mg at bedtime, Rocephin 1 g IV daily, Singulair 10 mg daily, Tylenol p.r.n., Ultram 50 mg daily, lisinopril 20 mg daily, and Zoloft 100 mg daily. LABORATORY DATA: Shows INR 1.32. Sodium 140, potassium 3.7, chloride 104, bicarbonate 22, BUN 41, creatinine 0.9, glucose 79, calcium is 8.8. Microbiology: Blood culture is negative. Urine culture has a gram-negative diamond. IMPRESSION AND PLAN: Chronic obstructive lung disease, cardiomyopathy with decreased left ventricular function, coronary artery disease, history of coronary stent, atrial fibrillation, has a cardiac arrhythmia with cardiac pacemaker, history of transient ischemic attack, diabetes, history of vertebral fracture, has a recurrent urinary tract infection. Presently, urinalysis shows wbc's 5-10, rbc's is 0-2, large bacteria, but she has no fever, no leukocytosis, probably colonized with gram-negatives. Presently, will not treat it, keep watching closely. Continue bronchodilator. Keep head at 45 degrees. Continue Lasix, gastric prophylaxis, anticoagulation, fall precaution. Thank you and we will follow with you. Rosina Gabrile MD
[2017-11-05] MEDS: cefTRIAXone 1 gm 1 GM/100 ML BAG IVPB SCH (21:56)
--- NOTE | 2017-11-05 23:55 | PN ---
DATE: 11/05/2017 The patient is a 72-year-old female. SUBJECTIVE: The patient was seen and examined at the bedside, looking comfortable. Still having swelling of the leg. No nausea, vomiting or diarrhea. Having MANUEL stocking. No fever. No chills. No hematuria or hematochezia. PHYSICAL EXAMINATION: VITAL SIGNS: Temperature 98, heart rate 71, respiratory rate 20, blood pressure 95/54. HEENT: Head, normocephalic and atraumatic. Eyes, PERRLA. Extraocular muscles intact. Conjunctivae clear. Nose patent. Mucous membrane moist. NECK: Supple. No carotid bruit. No JVD or thyromegaly. CHEST: Bilaterally symmetrical. HEART: S1, S2 positive. LUNGS: Have a fair airflow with rhonchi. ABDOMEN: Soft. Nontender. No organomegaly. EXTREMITIES: Does have edema. Has MANUEL stocking. NEUROLOGIC: Patient is awake, alert. Follows simple commands. MEDICATIONS: Mucomyst, Aldactone, hydralazine, aspirin, Benadryl, Cardizem, Colace, Coreg, Coumadin, digoxin, Effient, glipizide, insulin, potassium, Lasix, Levemir, Lipitor, Pepcid, Rocephin, Ceclor, Tylenol, Ultram, lisinopril, Zoloft. LABORATORY DATA: INR is 1.32. Sodium 140, potassium 3.7, BUN 41, creatinine 0.8 and glucose 79. Blood culture has gram-negative rods. ASSESSMENT AND PLAN: Ms. Mallorie Turner has chronic obstructive lung disease, came with exacerbation of congestive heart failure, cardiomyopathy, decreased left ventricular function, coronary artery disease, history of coronary artery stents, atrial fibrillation, has cardiac arrhythmias with cardiac pacemaker, history of transient ischemic attack, diabetes mellitus, history of vertebral fracture, has recurrent urinary tract infection. Continue bronchodilators. Keep head elevated at 45 degrees. Continue Lasix, gastric prophylaxis, anticoagulation, fall precautions. Head Filter Tank Tender Helper and gourmet coffee attendant is on the case and their notes reviewed. 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 We will follow up. Tanisha Lebron MD
[2017-11-06] MEDS: Albuterol-Ipratrop 3 mg / 0.5 (3 ml) UD IH SCH ×3 (02:35→13:23)
[2017-11-06 06:07] VITALS: O2SAT 96
[2017-11-06] MEDS: Acetylcysteine 20% Inhal Soln (4ml) INH SCH (07:54)
--- NOTE | 2017-11-06 08:04 | CP.PCM.PN ---
Subjective - Date & Time of Evaluation Date of Evaluation: 11/06/17 Time of Evaluation: 07:00 - Subjective Subjective: Stable on 2R. No CP or SOB. Still LE edema which is better V/S noted. V. Paced PE: Lungs: rhonchi Cor.: S1S2, sys. murmur Abd>; soft Ext.: + edema Neuro.: alert I/O= 1360/4 recorded Labs noted 11/05: INR = 1.32, K+= 3.7, Mg.++= 2.0, Cr.= 0.9 BC X2 NG at 48 hrs. Urine C+S: + GNR Objective - Vital Signs/Intake and Output Vital Signs (last 24 hours): Temp Pulse Resp BP Pulse Ox 97.6 F 72 20 109/67 96 11/06/17 06:00 11/06/17 06:00 11/06/17 06:00 11/06/17 06:00 11/06/17 06:00 Intake and Output: 11/06/17 11/06/17 06:59 18:59 Intake Total 520 Balance 520 - Medications Medications: Current Medications Acetaminophen (Tylenol 325mg Tab) 650 mg PO Q4H PRN PRN Reason: Pain, Mild (1-3) Last Admin: 11/03/17 22:18 Dose: 650 mg Acetylcysteine (Acetylcysteine 20%) 3 ml INH BIDRESP [facility] Last Admin: 11/05/17 20:50 Dose: 3 ml Albuterol/Ipratropium (Duoneb 3 Mg/0.5 Mg (3 Ml) Ud) 3 ml IH [id number] [facility] Last Admin: 11/06/17 02:35 Dose: Not Given Aspirin (Aspirin Chewable) 81 mg PO DAILY [facility] Last Admin: 11/05/17 09:50 Dose: 81 mg Atorvastatin Calcium (Lipitor) 20 mg PO DIN [facility] Last Admin: 11/05/17 18:10 Dose: 20 mg Carvedilol (Coreg) 25 mg PO BID [facility] Last Admin: 11/05/17 17:58 Dose: Not Given Digoxin (Digoxin) 0.125 mg PO Q48H [facility] Last Admin: 11/05/17 14:33 Dose: 0.125 mg Diltiazem HCl (Cardizem Cd) 180 mg PO DAILY [facility] Last Admin: 11/05/17 09:50 Dose: 180 mg Diphenhydramine HCl (Benadryl) 25 mg PO BID [facility] Last Admin: 11/05/17 17:53 Dose: 25 mg Docusate Sodium (Colace) 100 mg PO BID [facility] Last Admin: 11/05/17 17:52 Dose: 100 mg Famotidine (Pepcid) 40 mg PO HS [facility] Last Admin: 11/05/17 21:36 Dose: 40 mg Ferrous Sulfate (Feosol) 324 mg PO DAILY [facility] Last Admin: 11/05/17 09:49 Dose: 324 mg Furosemide (Lasix) 40 mg IV BID [facility] Last Admin: 11/05/17 17:55 Dose: 40 mg Glipizide (Glucotrol) 10 mg PO DAILY [facility] Last Admin: 11/05/17 10:02 Dose: Not Given Hydralazine HCl (Apresoline) 25 mg PO TID [facility] Last Admin: 11/05/17 17:57 Dose: Not Given Ceftriaxone Sodium (Rocephin 1 Gram Ivpb) 1 gm in 100 mls @ 100 mls/hr IVPB DAILY [facility] PRN Reason: Protocol Last Admin: 11/05/17 21:56 Dose: 100 mls/hr Insulin Detemir (Levemir) 12 unit SC DAILY [facility] Last Admin: 11/05/17 12:05 Dose: 12 unit Insulin Human Regular (Humulin R Low) 0 units SC ACHS [facility] PRN Reason: Protocol Last Admin: 11/05/17 21:33 Dose: Not Given Isosorbide Mononitrate (Imdur Er) 30 mg PO DAILY [facility] Last Admin: 11/05/17 09:51 Dose: 30 mg Lisinopril (Zestril) 20 mg PO DAILY [facility] Last Admin: 11/05/17 09:51 Dose: 20 mg Montelukast Sodium (Singulair) 10 mg PO DAILY [facility] Last Admin: 11/05/17 09:49 Dose: 10 mg Potassium Chloride (K-Dur 20 Meq Er Tab) 20 meq PO DAILY [facility] Last Admin: 11/05/17 09:51 Dose: 20 meq Prasugrel (Effient) 5 mg PO DAILY [facility] Last Admin: 11/05/17 10:42 Dose: 5 mg Sertraline HCl (Zoloft) 100 mg PO DAILY [facility] Last Admin: 11/05/17 09:51 Dose: 100 mg Spironolactone (Aldactone) 25 mg PO BID [facility] Last Admin: 11/05/17 17:56 Dose: 25 mg Tramadol HCl (Ultram) 50 mg PO DAILY PRN PRN Reason: Pain, moderate (4-7) Last Admin: 11/05/17 09:48 Dose: 50 mg Warfarin Sodium (Coumadin) 4 mg PO 1800 ZAIRE PRN Reason: Protocol Last Admin: 11/05/17 17:54 Dose: 4 mg Warfarin Sodium (Coumadin) 10 mg PO ONCE ONE PRN Reason: Protocol Stop: 11/06/17 10:01 - Labs Labs: 11/05/17 06:30 PT 15.3 SECONDS (9.4-12.5) H 11/05/17 06:30 INR 1.32 (0.93-1.08) H 11/05/17 06:30 APTT 33.8 Seconds (25.1-36.5) 11/03/17 16:15 Assessment and Plan - Assessment and Plan (Free Text) Assessment: SOB, congestion, edema, increased abd. girth CHF COPD/Former Smoker CAD/MIs/CABG/PCIs, Severe LVD PAF ICD HBP HLD Diabetes H/O PE H/O extensive colon resection Depression/Suicidal ideation and gestures Bactiuria/UTI Plan: Warfarin 10 today. Monitor INR's Continue IV Lasix Monitor Labs, INR's, I/Os, sats., etc Conflict Resolution Professional Evaluation: Needs long tem placement As per Drs. Gabriel and Bernardino MESA ad shane/PT Will follow.
[2017-11-06] MEDS: Insulin Reg-LOW-Coverage SC SCH ×2 (08:15→12:59)
[2017-11-06] MEDS: cefTRIAXone 1 gm 1 GM/100 ML BAG IVPB SCH ×2 (09:30→09:39)
[2017-11-06] MEDS: Insulin Detemir 100 units/ml Vial (Levemir) SC SCH (09:31)
[2017-11-06] MEDS: diltiaZEM 180 mg/24 Hours CD Cap PO SCH (09:33)
[2017-11-06] MEDS: Potassium Chloride 20 mEq ER Tab PO SCH (09:33)
[2017-11-06 11:52] VITALS: PULSE 84; RESP 19; TEMP 97.8
[2017-11-06 11:58] VITALS: BP 124/94
== END 2017-11-06 13:48 | DRG 292 ==
LOC: ED 14:39 → ERH 18:32 → 2RSO 21:10 → OBSVTOIN 11-04 21:10
PROVIDERS: ADMIT Internal Medicine; ATTEND Internal Medicine
DX: I11.0 Hypertensive heart disease with heart failure (principal); N39.0 Urinary tract infection, site not specified; R45.851 Suicidal ideations; I50.23 Acute on chronic systolic (congestive) heart failure; E11.65 Type 2 diabetes mellitus with hyperglycemia; E61.1 Iron deficiency; E78.00 Pure hypercholesterolemia, unspecified; E78.5 Hyperlipidemia, unspecified; F32.89 Other specified depressive episodes; G47.33 Obstructive sleep apnea (adult) (pediatric); I25.10 Atherosclerotic heart disease of native coronary artery without angina pectoris; I25.2 Old myocardial infarction; I42.9 Cardiomyopathy, unspecified; I48.0 Paroxysmal atrial fibrillation; J44.9 Chronic obstructive pulmonary disease, unspecified; Z59.0 Homelessness; Z79.01 Long term (current) use of anticoagulants; Z79.51 Long term (current) use of inhaled steroids; Z85.038 Personal history of other malignant neoplasm of large intestine; Z86.711 Personal history of pulmonary embolism; Z86.73 Personal history of transient ischemic attack (TIA), and cerebral infarction without residual deficits; Z87.440 Personal history of urinary (tract) infections; Z87.81 Personal history of (healed) traumatic fracture; Z87.891 Personal history of nicotine dependence; Z90.49 Acquired absence of other specified parts of digestive tract; Z91.19 Patient's noncompliance with other medical treatment and regimen; Z95.1 Presence of aortocoronary bypass graft; Z95.5 Presence of coronary angioplasty implant and graft; Z95.810 Presence of automatic (implantable) cardiac defibrillator; B96.20 Unspecified Escherichia coli [E. coli] as the cause of diseases classified elsewhere